=== PATIENT | female | born 1935 | race Caucasian/White ===

== ENCOUNTER 2016-10-22 07:39 | Inpatient (IN) | payer MEDICARE, MEDICAID ==
[~2016-10-22] VITALS: Ht 154.9 cm; Wt 63.0 kg
[~2016-10-22 07:39] MED LIST: ATEN100T PO; CEPH-507 PO
[2016-10-22 07:54] LABS: BASOPHILS % (AUTO) 0 % (0-10); EOSINOPHILS # (AUTO) 0.1 10^3/uL (0.0-0.3); EOSINOPHILS % (AUTO) 1 % (0-10); LYMPHOCYTES # (AUTO) 1.3 X 10^3 (1.0-4.0); LYMPHOCYTES % (AUTO) 16 % (12-44); MEAN CORPUSCULAR HEMOGLOBIN 32 PG (25-34); MEAN CORPUSCULAR HGB CONC 33 G/DL (32-36); MEAN CORPUSCULAR VOLUME 99 FL (80-99); MEAN PLATELET VOLUME 9.3 FL (7.4-10.4); MONOCYTES # (AUTO) 0.6 X 10^3 (0.0-1.0); MONOCYTES % (AUTO) 8 % (0-12); NEUTROPHILS # (AUTO) 5.9 X 10^3 (1.8-7.8); NEUTROPHILS % (AUTO) 75 % (42-75); PLATELET COUNT 208 10^3/uL (130-400); RED BLOOD COUNT 3.61 10^6/uL (4.35-5.85); RED CELL DISTRIBUTION WIDTH 12.4 % (10.0-14.5); WHITE BLOOD COUNT 7.9 10^3/uL (4.3-11.0)
[2016-10-22 08:04] LABS: INR 1.1 (0.8-1.4); PROTHROMBIN TIME PATIENT 13.6 SEC (12.2-14.7)
--- NOTE | 2016-10-22 08:04 | Diagnostic Imaging Report ---
INDICATION: Altered mental status EXAMINATION: Portable chest 7:55 AM There is scoliosis of the thoracic spine convex to the right. Heart size and pulmonary vascularity are normal. Lungs are clear. There are no effusions or pneumothoraces. IMPRESSION: No acute abnormalities in the chest. Dictated by: Dictated on workstation # [id number]
--- NOTE | 2016-10-22 08:05 | Diagnostic Imaging Report ---
INDICATION: Altered mental status The ventricles are normal in size, shape and position. There are no masses or hemorrhages. There are no extra-axial fluid collections. There is mild atrophy. IMPRESSION: There are senescent changes of brain with mild diffuse cerebral degeneration and chronic ischemic leukoencephalopathy. There is no acute abnormality seen. There is no CT evidence for an acute infarct. Dictated by: Dictated on workstation # [id number]
[2016-10-22 08:12] LABS: ALANINE AMINOTRANSFERASE 12 U/L (0-55); ANION GAP 12 MMOL/L (5-14); ASPARTATE AMINO TRANSFERASE 15 U/L (5-34); BILIRUBIN,TOTAL 0.5 MG/DL (0.1-1.0); BLOOD UREA NITROGEN 24 MG/DL (7-18); BUN/CREATININE RATIO 23; CALCIUM 9.2 MG/DL (8.5-10.1); CARBON DIOXIDE 22 MMOL/L (21-32); CHLORIDE 104 MMOL/L (98-107); CREATININE SERUM 1.06 MG/DL (0.60-1.30); GFR ESTIMATED 50; GLUCOSE 165 MG/DL (70-105); POTASSIUM 4.9 MMOL/L (3.6-5.0); SODIUM 138 MMOL/L (135-145); TOTAL PROTEIN 6.7 G/DL (6.4-8.2)
--- NOTE | 2016-10-22 08:16 | ED Neurological Problem ---
General Chief Complaint: Neuro-Stroke Like Symptoms Stated Complaint: DIFFICULTY MOVING R SIDE Source: patient Exam Limitations: no limitations History of Present Illness Time seen by provider: 07:46 Initial Comments Here with difficulty in moving the right side specifically the right arm. Also there is some concerns of facial droop on the left side. She lives at an assisted living facility and went to bed normal last night but when she woke up this morning she had difficulty. She has had an episode in the past with right arm weakness. No history of stroke. She does have dementia. Denies any other recent injuries or concerns other than stuffed up nose. This apparently is a long-term concern. Last known well time 10 p.m. last night. Timing/Duration: other (8-10 hours) Associated Symptoms: confusion (history of dementia), No fever/chills, No muscle spasms, No nausea/vomiting, No slurred speech, trouble walking, weakness (right arm) Allergies and Home Medications Allergies Coded Allergies: No Known Drug Allergies (Unverified , 03/07/16) Home Medications Atenolol 100 Mg Tablet, 100 MG PO DAILY, (Reported) Citalopram Hydrobromide 20 Mg Tablet, #30 (Reported) Divalproex Sodium 125 Mg Cap.sprink, #90 (Reported) Fluticasone Propionate 16 Gm Charmco.susp, #16 (Reported) Lactulose 10 Gm/15 Ml Solution, #1800 (Reported) Levothyroxine Sodium 125 Mcg Tablet, #22 (Reported) Lorazepam 0.5 Mg Tablet, #15 (Reported) Meloxicam 15 Mg Tablet, #30 (Reported) Memantine HCl 10 Mg Tablet, #60 (Reported) Spironolactone 25 Mg Tablet, #30 (Reported) Constitutional: see HPI, No chills, No fever, weakness Eyes: No Symptoms Reported Ears, Nose, Mouth, Throat: see HPI Respiratory: No short of breath Cardiovascular: no symptoms reported, No chest pain, No edema Gastrointestinal: no symptoms reported, No vomiting Genitourinary: no symptoms reported, No dysuria, No pain Musculoskeletal: no symptoms reported, No muscle pain, muscle weakness Skin: no symptoms reported Psychiatric/Neurological: See HPI, Weakness Endocrine: No Symptoms Reported All Other Systems Reviewed Negative Unless Noted: Yes Past Spxcyvv-Cfhajc-Awgadv Hx Patient Social History Alcohol Use: Denies Use Recreational Drug Use: No Smoking Status: Never a Smoker Recent Hopitalizations: No Surgeries HX Surgeries: No Respiratory Hx Respiratory Disorders: No Cardiovascular Hx Cardiac Disorders: Yes ( CHF) Cardiac Disorders: High Cholesterol, Hypertension Neurological Hx Neurological Disorders: No Genitourinary Hx Genitourinary Disorders: No Gastrointestinal Hx Gastrointestinal Disorders: No Musculoskeletal Hx Musculoskeletal Disorders: No Endocrine Hx Endocrine Disorders: Yes Endocrine Disorders: Hypothyroidsim HEENT HX ENT Disorders: No Cancer Hx Cancer: No Psychosocial Hx Psychiatric Problems: Yes Behavioral Health Disorders: Anxiety Reviewed Nursing Assessment Reviewed/Agree w Nursing PMH: Yes Family Medical History Significant Family History: No Pertinent Family Hx Physical Exam Vital Signs Vital Sign - Last 12Hours 10/22/16 07:40 Temp 98.2 Pulse 56 Resp 14 B/P (MAP) 188/71 Pulse Ox 96 O2 Delivery Room Air Capillary Refill : General Appearance: WD/WN, no apparent distress HEENT: PERRL/EOMI, pharynx normal Neck: full range of motion, supple Respiratory: lungs clear, normal breath sounds Cardiovascular: regular rate, rhythm, no murmur Peripheral Pulses: 2+ Dorsalis Pedis (R), 2+ Left Dors-Pedis (L), 2+ Radial Pulses (R), 2+ Radial Pulses (L) Gastrointestinal: non tender, soft Back: normal inspection, no CVA tenderness, no vertebral tenderness Extremities: non-tender, other (arthritis to the right hand and wrist. Weakness noted to the right hand.) Neurologic/Psychiatric: alert, oriented x 3, motor weakness (right hand and weak when standing) Crainal Nerves: normal hearing, normal speech, PERRL Coordination/Gait: ABN nose to finger (R) Motor/Sensory: no sensory deficit, pronator drift (R), weak motor strength RUE Skin: normal color, warm/dry Progress/Results/Core Measures Results/Orders Lab Results Laboratory Tests Test 10/22/16 07:45 10/22/16 08:02 10/22/16 09:27 Range/Units White Blood Count 7.9 4.3-11.0 10^3/uL Red Blood Count 3.61 L 4.35-5.85 10^6/uL Hemoglobin 11.7 11.5-16.0 G/DL Hematocrit 36 35-52 % Mean Corpuscular Volume 99 80-99 FL Mean Corpuscular Hemoglobin 32 25-34 PG Mean Corpuscular Hemoglobin Concent 33 32-36 G/DL Red Cell Distribution Width 12.4 10.0-14.5 % Platelet Count 208 130-400 10^3/uL Mean Platelet Volume 9.3 7.4-10.4 FL Neutrophils (%) (Auto) 75 42-75 % Lymphocytes (%) (Auto) 16 12-44 % Monocytes (%) (Auto) 8 0-12 % Eosinophils (%) (Auto) 1 0-10 % Basophils (%) (Auto) 0 0-10 % Neutrophils # (Auto) 5.9 1.8-7.8 X 10^3 Lymphocytes # (Auto) 1.3 1.0-4.0 X 10^3 Monocytes # (Auto) 0.6 0.0-1.0 X 10^3 Eosinophils # (Auto) 0.1 0.0-0.3 10^3/uL Basophils # (Auto) 0.0 0.0-0.1 10^3/uL Prothrombin Time 13.6 12.2-14.7 SEC INR Comment 1.1 0.8-1.4 Activated Partial Thromboplast Time 32 24-35 SEC D-Dimer 1.14 H 0.00-0.49 UG/ML Sodium Level 138 135-145 MMOL/L Potassium Level 4.9 3.6-5.0 MMOL/L Chloride Level 104 98-107 MMOL/L Carbon Dioxide Level 22 21-32 MMOL/L Anion Gap 12 5-14 MMOL/L Blood Urea Nitrogen 24 H 7-18 MG/DL Creatinine 1.06 0.60-1.30 MG/DL Estimat Glomerular Filtration Rate 50 BUN/Creatinine Ratio 23 Glucose Level 165 H 70-105 MG/DL Calcium Level 9.2 8.5-10.1 MG/DL Total Bilirubin 0.5 0.1-1.0 MG/DL Aspartate Amino Transf (AST/SGOT) 15 5-34 U/L Alanine Aminotransferase (ALT/SGPT) 12 0-55 U/L Alkaline Phosphatase 95 40-136 U/L Troponin I < 0.30 <0.30 NG/ML Total Protein 6.7 6.4-8.2 G/DL Albumin 4.0 3.2-4.5 G/DL Glucometer 162 H 70-110 MG/DL Urine Color YELLOW Urine Clarity CLEAR Urine pH 6 5-9 Urine Specific [place] 1.010 L 1.016-1.022 Urine Protein NEGATIVE NEGATIVE Urine Glucose (UA) NEGATIVE NEGATIVE Urine Ketones NEGATIVE NEGATIVE Urine Nitrite NEGATIVE NEGATIVE Urine Bilirubin NEGATIVE NEGATIVE Urine Urobilinogen NORMAL NORMAL MG/DL Urine Leukocyte Esterase NEGATIVE NEGATIVE Urine RBC (Auto) NEGATIVE NEGATIVE Urine RBC NONE /HPF Urine WBC NONE /HPF Urine Squamous Epithelial Cells RARE /HPF Urine Crystals NONE /LPF Urine Bacteria NEGATIVE /HPF Urine Casts NONE /LPF Urine Mucus NEGATIVE /LPF Urine Culture Indicated NO My Orders Orders - ROSALIA PATEL MD Cbc With Automated Diff (10/22/16 07:46) Protime With Inr (10/22/16 07:46) Partial Thromboplastin Time (10/22/16 07:46) Comprehensive Metabolic Panel (10/22/16 07:46) Fibrin Degradation Products (10/22/16 07:46) Troponin I (10/22/16 07:46) Ua Culture If Indicated (10/22/16 07:46) Chest 1 View, Ap/Pa Only (10/22/16 07:46) Ekg Tracing (10/22/16 07:46) Nothing By Mouth (10/22/16 Lunch) Accucheck Stat ONCE (10/22/16 07:46) Saline Lock/Iv-Start (10/22/16 07:46) Vital Signs-Stroke Q1H (10/22/16 07:46) Ct Head Wo-R/O Stroke (10/22/16 07:46) O2 (10/22/16 07:46) Intake & Output 06,14,22 (10/22/16 07:46) Monitor-Rhythm Ecg Trace Only (10/22/16 07:46) Dysphagia Screening Tool (10/22/16 07:46) Ketorolac Injection (Toradol Injection) (10/22/16 09:15) Aspirin Chewable Tablet (Baby Aspirin Ch (10/22/16 10:57) Vital Signs/I&O Vital Sign - Last 12Hours 10/22/16 07:40 Temp 98.2 Pulse 56 Resp 14 B/P (MAP) 188/71 Pulse Ox 96 O2 Delivery Room Air Progress Note : Progress Note Seen and evaluated. Stroke activation. IV, labs, EKG, chest x-ray, CT head and UA ordered. Rapid CT evaluation done. Stroke scale equals a 2. Last known well time greater than 3 hours with last known well time at 10 p.m. last night. TPA not indicated due to timeframe exceeding 3 hours. This was discussed with the family who agrees. Monitor patient. 1055: All evaluation complete. Patient still has findings of right-sided deficit similar to presentation. I did discuss the case with Dr. Fish who is on-call for Dr. Hou. She accepts patient for admission, inpatient status. Doppler ultrasound of carotids and MRI of brain ordered on admission. All findings and concerns were discussed with patient and family who agree with plan. ECG Initial ECG Impression Date: Oct 22, 2016 Initial ECG Impression Time: 08:01 Initial ECG Rate: 56 Initial ECG Rhythm: Normal Sinus Comment Sinus rhythm with left axis deviation. Left ventricular hypertrophy noted. No previous available for comparison. No evidence of ST elevation [place]. Interpreted by me. Diagnostic Imaging Diagonstic Imaging: CT Plain Films/CT/US/NM/MRI: head Comments NAME: CORY FLORENCEYN [facility] REC#: [id number] PT STATUS: REG ER : 1935 PHYSICIAN: ROSALIA PATEL MD ADMIT DATE: 10/22/16/ER Signed Date of Exam: 10/22/16 CT HEAD WO-R/O STROKE INDICATION: Altered mental status The ventricles are normal in size, shape and position. There are no masses or hemorrhages. There are no extra-axial fluid collections. There is mild atrophy. IMPRESSION: There are senescent changes of brain with mild diffuse cerebral degeneration and chronic ischemic leukoencephalopathy. There is no acute abnormality seen. There is no CT evidence for an acute infarct. Dictated by: Dictated on workstation # [id number] Dict: 10/22/16 08 Trans: 10/22/16810 Interpreted by: ROSALIA GARCIA Electronically signed by: ROSALIA GARCIA 10/22/16810 Diagonstic Imaging: Xray Plain Films/CT/US/NM/MRI: chest Comments NAME: JO FLORENCE [facility] REC#: [id number] PT STATUS: REG ER : 1935 PHYSICIAN: ROSALIA PATEL MD ADMIT DATE: 10/22/16/ER Signed Date of Exam: 10/22/16 CHEST 1 VIEW, AP/PA ONLY INDICATION: Altered mental status EXAMINATION: Portable chest 7:55 AM There is scoliosis of the thoracic spine convex to the right. Heart size and pulmonary vascularity are normal. Lungs are clear. There are no effusions or pneumothoraces. IMPRESSION: No acute abnormalities in the chest. Dictated by: Dictated on workstation # [id number] Dict: 10/22/16800 Trans: 10/22/16810 Interpreted by: ROSALIA GARCIA Electronically signed by: ROSALIA GARCIA 10/22/16810 Departure Communication Time/Spoke to Admitting Phy: 10:55 Impression Impression: Primary Impression: CVA (cerebral vascular accident) Qualified Codes: I63.9 - Cerebral infarction, unspecified Disposition: 09 ADMITTED INPATIENT Condition: Stable Decision to Admit Reason: Admit from ER (General) Decision to Admit/Date: Oct 22, 2016 Time/Decision to Admit Time: 10:55 Departure-Patient Inst. Referrals: NATE HOU MD (PCP/Family) Primary Care Physician ROSALIA PATEL MD Oct 22, 2016 08:16
[2016-10-22 08:18] LABS: TROPONIN I < 0.30 NG/ML (<0.30)
[2016-10-22] MEDS ORDERED: LORA0.5T PO (08:19)
[2016-10-22] MEDS ORDERED: SPIR25TA3 PO (08:19)
[2016-10-22] MEDS ORDERED: DIVA125C10 PO (08:19)
[2016-10-22] MEDS ORDERED: MELO15TA39 PO (08:19)
[2016-10-22] MEDS ORDERED: MEMA10TA22 PO (08:19)
[2016-10-22] MEDS ORDERED: CITA20TA7 PO (08:19)
[2016-10-22] MEDS ORDERED: FLUT16SP22 NSEACH (08:19)
[2016-10-22] MEDS ORDERED: LACT10SO PO (08:19)
[2016-10-22] MEDS ORDERED: LEVO125T6 PO (08:19)
[2016-10-22] MEDS ORDERED: KETOROLAC 30 MG/ML VIAL IVP STA (09:15)
[2016-10-22 09:59] LABS: BILIRUBIN,URINE NEGATIVE (NEGATIVE); KETONES,URINE NEGATIVE (NEGATIVE); LEUKOCYTE ESTERASE ,URINE NEGATIVE (NEGATIVE); NITRITE,URINE NEGATIVE (NEGATIVE); PH,URINE 6 (5-9); PROTEIN,URINE NEGATIVE (NEGATIVE); SQUAMOUS EPITHELIAL CELL,UR RARE /HPF; UROBILINOGEN,URINE NORMAL (NORMAL)
[2016-10-22] MEDS ORDERED: ASPIRIN 81 MG CHEW (CHILDREN'S ASA) PO STA (10:57)
[2016-10-22 12:05] VITALS: BP 195/84
[2016-10-22] MEDS ORDERED: CATHETER FLUSH 10 ML SYR IV PRN (12:15)
[2016-10-22] MEDS: NS IV 1000 ML 1,000 ML IV SCH (12:31)
--- NOTE | 2016-10-22 14:48 | Diagnostic Imaging Report ---
PROCEDURE: MR imaging of the brain without contrast. TECHNIQUE: Multiplanar, multisequence MR imaging of the brain was performed without contrast. INDICATION: Right-sided weakness and slurred speech. Comparison made to CT head from earlier in the same day. FINDINGS: The diffusion series demonstrates no restriction to suggest acute ischemia. There is no MR evidence of acute intracranial hemorrhage. Global volume loss is present with background microvascular changes in the white matter. These appear moderate. There is no mass effect. There is no hydrocephalus. There is no abnormal extra-axial fluid collection. Basilar cisterns patent. Posterior fossa demonstrates no acute abnormality. Pituitary gland and pineal region appear normal. There is normal alignment demonstrated of the craniocervical junction. Note is made of a high-grade upper cervical canal stenosis at the C2-3 and C3-4 levels. There is some mild mucosal thickening within the paranasal sinuses. Orbital contents unremarkable. The mastoids appear clear. Expected arterial and dural venous sinus flow voids appear preserved. IMPRESSION: 1. No MR evidence of an acute intracranial abnormality. There is No evidence of acute ischemia or hemorrhage. There is no mass effect or hydrocephalus. 2. Age-appropriate global volume loss demonstrated with moderate background microvascular changes in the white matter. 3. The sagittal T1 images suggest significant upper cervical canal stenosis at the C2-3 and C3-4 levels. If signs or symptoms attributable to a myelopathy or radiculopathy consider dedicated MR imaging of the cervical spine. Dictated by: Dictated on workstation # [id number]
[2016-10-22] MEDS ORDERED: RIVA1PAT TD (15:26)
[2016-10-22] MEDS ORDERED: CHOL200025 PO (15:26)
[2016-10-22] MEDS ORDERED: SIMV20TA3 PO (15:26)
[2016-10-22] MEDS ORDERED: GLUC1TAB20 PO (15:26)
[2016-10-22] MEDS ORDERED: LACT1CAP45 PO (15:26)
--- NOTE | 2016-10-22 15:29 | Diagnostic Imaging Report ---
PROCEDURE: US carotid duplex, bilateral. TECHNIQUE: Multiple real-time grayscale images were obtained over the carotid arteries in various projections, bilaterally. Additional duplex Doppler and color Doppler images were also obtained. INDICATION: Right side neurologic deficit. FINDINGS: There is atherosclerotic plaque present in both carotid bifurcations. There is no significant velocity or waveform change on the right. On the left, There is some acceleration of the distal internal carotid artery suggesting stenosis of 60-65% narrowing. Left vertebral artery is patent with antegrade flow. The right vertebral artery was not seen. IMPRESSION: Left internal carotid stenosis. It is borderline hemodynamically significant regarding its velocity ratio. The right vertebral artery was not seen. Dictated by: Dictated on workstation # [id number]
[2016-10-22 16:03] VITALS: BP 146/61
[2016-10-22] MEDS: FLUTICASONE NASAL SPRAY (FLONASE) 16 GM BTL NS SCH (17:29)
[2016-10-22 20:59] VITALS: BP 169/67
[2016-10-22] MEDS ORDERED: LORazepam 0.5 MG (ATIVAN) TABLET PO SCH (21:00)
[2016-10-22] MEDS: DIVALPROX SPRINKLE 125 MG (DEPAKOTE) CAP PO SCH (22:08)
[2016-10-23] VITALS: BP 179/84
[2016-10-23 04:00] VITALS: BP 168/70
[2016-10-23 06:14] LABS: BASOPHILS % (AUTO) 1 % (0-10); EOSINOPHILS # (AUTO) 0.2 10^3/uL (0.0-0.3); EOSINOPHILS % (AUTO) 3 % (0-10); LYMPHOCYTES # (AUTO) 1.7 X 10^3 (1.0-4.0); LYMPHOCYTES % (AUTO) 27 % (12-44); MEAN CORPUSCULAR HEMOGLOBIN 32 PG (25-34); MEAN CORPUSCULAR HGB CONC 33 G/DL (32-36); MEAN CORPUSCULAR VOLUME 99 FL (80-99); MEAN PLATELET VOLUME 9.6 FL (7.4-10.4); MONOCYTES # (AUTO) 0.8 X 10^3 (0.0-1.0); MONOCYTES % (AUTO) 13 % (0-12); NEUTROPHILS # (AUTO) 3.5 X 10^3 (1.8-7.8); NEUTROPHILS % (AUTO) 57 % (42-75); PLATELET COUNT 205 10^3/uL (130-400); RED BLOOD COUNT 3.62 10^6/uL (4.35-5.85); RED CELL DISTRIBUTION WIDTH 12.5 % (10.0-14.5); WHITE BLOOD COUNT 6.2 10^3/uL (4.3-11.0)
[2016-10-23 06:18] LABS: ALANINE AMINOTRANSFERASE 12 U/L (0-55); ALBUMIN 3.7 G/DL (3.2-4.5); ANION GAP 10 MMOL/L (5-14); ASPARTATE AMINO TRANSFERASE 16 U/L (5-34); BILIRUBIN,TOTAL 0.5 MG/DL (0.1-1.0); BLOOD UREA NITROGEN 22 MG/DL (7-18); BUN/CREATININE RATIO 25; CALCIUM 9.3 MG/DL (8.5-10.1); CARBON DIOXIDE 24 MMOL/L (21-32); CHLORIDE 105 MMOL/L (98-107); CREATININE SERUM 0.89 MG/DL (0.60-1.30); GFR ESTIMATED > 60; GLUCOSE 98 MG/DL (70-105); POTASSIUM 4.6 MMOL/L (3.6-5.0); SODIUM 139 MMOL/L (135-145); TOTAL PROTEIN 6.1 G/DL (6.4-8.2)
[2016-10-23 06:42] LABS: BAND NEUTROPHILS 2 %; EOSINOPHILS % (MANUAL) 2 %; LYMPHOCYTES % (MANUAL) 20 %; NEUTROPHILS % (MANUAL) 65 %; STOMATOCYTES SLIGHT
[2016-10-23 08:00] VITALS: BP 164/72
[2016-10-23] MEDS: ASPIRIN 325 MG (5 GR) TABLET PO SCH (08:40)
[2016-10-23] MEDS: DIVALPROX SPRINKLE 125 MG (DEPAKOTE) CAP PO SCH ×3 (08:40→20:59)
[2016-10-23] MEDS: FLUTICASONE NASAL SPRAY (FLONASE) 16 GM BTL NS SCH (08:41)
--- NOTE | 2016-10-23 10:57 | History & Physicial ---
History of Present Illness History of Present Illness Reason for visit/HPI This is an 81 year old female with a history of dementia and recent stay in [facility] with medication adjustments who was noted by AL staff to have right sided weakness--especially in her right arm. The patient has no history of stroke but did have a similar incident with her right arm in the past. She has a history of rheumatoid arthritis and has had the right arm and hand swell up with pain in the past as well. Her CT scan of the head was negative but it was felt she was having a TIA vs evolving stroke. She was given aspirin in the emergency room and will be admitted for further evaluation. Date of Admission Oct 22, 2016 at 11:05 I consulted on this patient on 10/23/16 10:47 Attending Physician Martha Hou MD Admitting Physician Martha Hou MD Consult Allergies and Home Medications Allergies Coded Allergies: No Known Drug Allergies (Unverified , 03/07/16) Home Medications Atenolol 100 Mg Tablet, 100 MG PO DAILY, (Reported) Cholecalciferol (Vitamin D3) 2,000 Unit Tablet, 2,000 UNIT PO DAILY, #30 Prescribed by: KWAKU PRESTON on 10/22/16 1526 Citalopram Hydrobromide 20 Mg Tablet, #30 (Reported) Divalproex Sodium 125 Mg Cap.sprink, #90 (Reported) Fluticasone Propionate 16 Gm Maben.susp, #16 (Reported) Gluc Levin/Chondro Lvein A/Vit C/Mn 1 Each Tablet, 1 EACH PO DAILY, #30 Prescribed by: KWAKU PRESTON on 10/22/16 1526 Lactobacillus Acidophilus 1 Each Capsule, 1 EACH PO HS, #30 Prescribed by: KWAKU PRESTON on 10/22/16 1526 Lactulose 10 Gm/15 Ml Solution, #1800 (Reported) Levothyroxine Sodium 125 Mcg Tablet, #22 (Reported) Lorazepam 0.5 Mg Tablet, #15 (Reported) Meloxicam 15 Mg Tablet, #30 (Reported) Memantine HCl 10 Mg Tablet, #60 (Reported) Rivastigmine 4.6 Mg Patch, 4.6 MG TD DAILY, #30 Prescribed by: KWAKU PRESTON on 10/22/16 1526 Simvastatin 20 Mg Tablet, 20 MG PO DAILY, #30 Prescribed by: KWAKU PRESTON on 10/22/16 1526 Spironolactone 25 Mg Tablet, #30 (Reported) Past Ovakpnn-Ruynqh-Mpybha Hx Patient Social History Alcohol Use: Denies Use Recreational Drug Use: No Smoking Status: Never a Smoker 2nd Hand Smoke Exposure: No Physical Abuse Screen: No Sexual Abuse: No Recent Foreign Travel: No Contact w/other who traveled: Yes (daughter in [facility] in august ) Recent Hopitalizations: Yes ([facility]) Recent Infectious Disease Expo: No Immunizations Up To Date Date of Pneumonia Vaccine: Jul 24, 2016 Seasonal Allergies Seasonal Allergies: No Surgeries HX Surgeries: No Respiratory Hx Respiratory Disorders: No Cardiovascular Hx Cardiovascular Disorders: Yes ( CHF) Cardiac Disorders: High Cholesterol, Hypertension Neurological Hx Neurological Disorders: Yes (ALZHEIMERS) Genitourinary Hx Genitourinary Disorders: No Gastrointestinal Hx Gastrointestinal Disorders: No Musculoskeletal Hx Musculoskeletal Disorders: No Endocrine Hx Endocrine Disorders: Yes Endocrine Disorders: Hypothyroidsim HEENT HX ENT Disorders: No Cancer Hx Cancer: No Psychosocial Hx Psychiatric Problems: Yes Behavioral Health Disorders: Anxiety, Depression Reviewed Nursing Assessment Reviewed/Agree w Nursing PMH: Yes Family Medical History Significant Family History: No Pertinent Family Hx Family Hx: Constitutional: weakness EENTM: No blurred vision, No dental problems, No double vision, No ear discharge, No ear pain, No epistaxis, No eye pain, No hearing loss, No hoarseness, No mouth pain, No mouth swelling, No no symptoms reported, No nose congestion, No nose pain, No other, No see HPI, No tearing, No throat pain, No throat swelling, No vision loss Respiratory: No no symptoms reported, No see HPI, No cough, No dyspnea on exertion, No hemoptysis, No orthopnea, No phlegm, No short of breath, No stridor , No wheezing, No other Cardiovascular: No no symptoms reported, No see HPI, No chest pain, No edema, No Hx of Intervention, No palpitations, No syncope, No vascular heart diseas, No other Gastrointestinal: No RUQ, No LUQ, No RLQ, No LLQ, No no symptoms reported, No see HPI, No abdominal pain, No constipation, No diarrhea, No dysphagia, No hematemesis, No heartburn, No jaundice, No loss of appetite, No melena, No nausea, No vomiting, No other Genitourinary: No no symptoms reported, No see HPI, No decreased output, No discharge, No dysuria, No frequency, No hematuria, No hesitancy, No incontinence , No nocturia, No pain, No other Musculoskeletal: joint pain (rheumatoid arthritis) Skin: No no symptoms reported, No see HPI, No change in color, No change in hair/nails, No dryness, No hx of skin cancer, No lesions, No lumps, No pruritus , No rash, No other Psychiatric/Neurological: Anxiety, Emotional Problems, Weakness, Other ( dementia) Physical Exam Vital Signs Vital Sign - Last 12Hours 10/22/16 07:40 Temp 98.2 Pulse 56 Resp 14 B/P (MAP) 188/71 Pulse Ox 96 O2 Delivery Room Air Capillary Refill : Less Than 3 SecondsLess Than 3 Seconds General Appearance: No Apparent Distress HEENT: Normal ENT Inspection Neck: Supple Respiratory: Lungs Clear Cardiovascular: Regular Rate, Rhythm, Systolic Murmur Gastrointestinal: Normal Bowel Sounds, Non Tender, Soft Rectal: Deferred Back: No CVA Tenderness Extremity: Non Tender, No Calf Tenderness, No Pedal Edema, Other (deformites of both hands consistent with history of rheumatoid) Neurologic/Psychiatric: Alert, Motor 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), Other (speech difficult to understand but this is her baseline per daughter) Skin: Normal Color, Warm/Dry Comments Laboratory Tests 10/23/16 05:37: White Blood Count 6.2, Red Blood Count 3.62L, Hemoglobin 11.7, Hematocrit 36, Mean Corpuscular Volume 99, Mean Corpuscular Hemoglobin 32, Mean Corpuscular Hemoglobin Concent 33, Red Cell Distribution Width 12.5, Platelet Count 205, Mean Platelet Volume 9.6, Neutrophils (%) (Auto) 57, Lymphocytes (%) (Auto) 27, Monocytes (%) (Auto) 13H, Eosinophils (%) (Auto) 3, Basophils (%) (Auto) 1, Neutrophils # (Auto) 3.5, Lymphocytes # (Auto) 1.7, Monocytes # (Auto) 0.8, Eosinophils # (Auto) 0.2, Basophils # (Auto) 0.0, Neutrophils % (Manual) 65, Lymphocytes % (Manual) 20, Monocytes % (Manual) 11, Eosinophils % (Manual) 2, Band Neutrophils 2, Stomatocytes SLIGHT, Sodium Level 139, Potassium Level 4.6, Chloride Level 105, Carbon Dioxide Level 24, Anion Gap 10, Blood Urea Nitrogen 22H, Creatinine 0.89, Estimat Glomerular Filtration Rate > 60, BUN/Creatinine Ratio 25, Glucose Level 98, Calcium Level 9.3, Total Bilirubin 0.5, Aspartate Amino Transf (AST/SGOT) 16, Alanine Aminotransferase (ALT/SGPT) 12, Alkaline Phosphatase 89, Total Protein 6.1L, Albumin 3.7 Assessment/Plan Assessment and Plan 1. Acute CVA with right arm weakness--Admit and check carotids, ECHO, MRI of brain, Start Aspirin, Start PT/OT, may need inpatient rehab 2. Left Carotid Artery Stenosis of 60-65%--discussed medical management with patient and daughter due to age and comorbidities 3. Dementia with Behavior Disorder--resume depakote, exelon, namenda, lorazepam 4. Rheumatoid Arthritis--stable 5. Hypertension--restart atenolol and monitor BP--okay with keeping it between 150-160 systolic for perfusion Problems: Clinical Quality Measures DVT/VTE Risk/Contraindication: Risk Factor Score Per Nursin RFS Level Per Nursing on Admit: 4+=Very High TOM BOSWELL DO Oct 23, 2016 10:57
[2016-10-23 12:00] VITALS: BP 179/78
[2016-10-23] MEDS: NS IV 1000 ML 1,000 ML IV SCH (12:33)
[2016-10-23 16:23] VITALS: BP 176/78
[2016-10-23 20:00] VITALS: BP 162/67
[2016-10-23] MEDS: LACTOBACILLUS Acidoph/Bulgar (LACTINEX/FLORANEX) TAB PO SCH (20:58)
[2016-10-23] MEDS: MEMANTINE 10 MG (NAMENDA) TABLET PO SCH (20:59)
[2016-10-23] MEDS: LORazepam 0.5 MG (ATIVAN) TABLET PO SCH (20:59)
[2016-10-23] MEDS: SIMvastatin 20 MG (ZOCOR) TAB PO SCH (20:59)
[2016-10-24 00:21] VITALS: BP 175/72
[2016-10-24 04:12] VITALS: BP 178/70
[2016-10-24] MEDS: LEVOTHYROXINE 125 MCG (LEVOTHROID) TABLET PO SCH (06:59)
[2016-10-24 07:25] VITALS: BP 177/77
[2016-10-24] MEDS ORDERED: RIVASTIGMINE 4.6 MG PATCH (EXELON) TD SCH (09:00)
[2016-10-24] MEDS: MEMANTINE 10 MG (NAMENDA) TABLET PO SCH ×2 (09:05→21:37)
[2016-10-24] MEDS: ATENOLOL 50 MG (TENORMIN) TAB PO SCH (09:05)
[2016-10-24] MEDS: DIVALPROX SPRINKLE 125 MG (DEPAKOTE) CAP PO SCH ×3 (09:05→21:37)
[2016-10-24] MEDS: ASPIRIN 325 MG (5 GR) TABLET PO SCH (09:05)
[2016-10-24] MEDS: VITAMIN D3 1,000 UNITS (CHOLECALCIFEROL) TABLET PO SCH (09:05)
[2016-10-24] MEDS: FLUTICASONE NASAL SPRAY (FLONASE) 16 GM BTL NS SCH (09:06)
[2016-10-24] MEDS ORDERED: GLUC1CAP37 PO (09:12)
[2016-10-24] MEDS ORDERED: LACT1CAP45 PO (09:12)
[2016-10-24] MEDS ORDERED: SIMV10TA3 PO (09:12)
[2016-10-24] MEDS ORDERED: RIVA1PAT TD (09:12)
[2016-10-24] MEDS ORDERED: CHOL20003 PO (09:12)
--- NOTE | 2016-10-24 09:33 | Progress Note (SOAP) ---
Subjective Subjective/Events-last exam PT REPORTS THAT SHE HAS NASAL CONGESTION, OTHERWISE IS FEELING BETTER. SHE DENIES ANY DIZZINESS, CHEST PAIN OR SHORTNESS OF BREATH. Review of Systems General: Fatigue, Malaise HEENT: No Head Aches Pulmonary: No Dyspnea, No Cough Cardiovascular: No: Chest Pain, Palpitations Gastrointestinal: No: Abdominal Pain, Nausea Genitourinary: No Dysuria Neurological: Confusion, Weakness Objective Exam Vital Signs Date Time Temp Pulse Resp B/P (MAP) Pulse Ox O2 Delivery O2 Flow Rate FiO2 10/24/16 07:25 98.0 61 16 177/77 94 Room Air 10/24/16 07:00 69 10/24/16 06:12 93 10/24/16 04:12 97.1 53 16 178/70 95 Room Air 10/24/16 01:00 55 10/24/16 00:21 98.3 60 16 175/72 95 Room Air 10/23/16 21:26 Room Air 10/23/16 20:00 96.9 57 18 162/67 92 Room Air 10/23/16 19:00 63 10/23/16 16:23 97.4 55 18 176/78 95 Room Air 10/23/16 13:00 58 10/23/16 12:00 97.6 56 18 179/78 97 Room Air I & O 10/24/16 07:00 Intake Total 3040 ml Output Total 2450 ml Balance 590 ml Capillary Refill : Less Than 3 SecondsLess Than 3 Seconds General Appearance: No Apparent Distress, WD/WN HEENT: PERRL/EOMI, Pharynx Normal Neck: Full Range of Motion, Supple Respiratory: Chest Non Tender, Lungs Clear, Normal Breath Sounds, No Accessory Muscle Use Cardiovascular: Regular Rate, Rhythm, No Edema Gastrointestinal: normal bowel sounds, non tender, soft Extremity: Normal Capillary Refill, No Calf Tenderness, No Pedal Edema Neurologic/Psychiatric: Alert, Oriented x3, No Motor/Sensory Deficits, Normal Mood/Affect, insole taper II-XII Norm as Tested Skin: Warm/Dry Lymphatic: No Adenopathy Assessment/Plan Assessment/Plan Assess & Plan/Chief Complaint TIA - - WAITING ON REPORTS OF ECHO - MRI OF BRAIN NEGATIVE, CAROTID REPORT SHOWS LEFT CAROTID ARTERY STENOSIS - BUT DOES NOT APPEAR TO BE AN UNSTABLE PLAQUE. DEMENTIA WITH BEHAVIORS - CONTINUE WITH HOME MEDICATIONS. RA - STABLE HTN - CONTINUE WITH ATENOLOL. LIKELY DISCHARGE TO HOME TOMORROW. Clinical Quality Measures DVT/VTE Risk/Contraindication: Risk Factor Score Per Nursin RFS Level Per Nursing on Admit: 4+=Very High NATE ADAN MD Oct 24, 2016 09:33
--- NOTE | 2016-10-24 11:14 | Physical Therapy Evaluation ---
PT Evaluation-General Medical Diagnosis Admission Date Oct 22, 2016 at 11:05 Medical Diagnosis: TIA Onset Date: Oct 22, 2016 Therapy Diagnosis Therapy Diagnosis: debility Height/Weight Height (Feet): 5 Height (Inches): 1.00 Weight (Pounds): 139 Weight (Ounces): 0.8 Precautions Precautions/Isolations: Fall Prevention, Standard Precautions Referral Physician: Abe Reason for Referral: Evaluation/Treatment Medical History Pertinent Medical History: Dementia, Heart Failure, HTN, Hypothroidism, Rheumatoid Arthritis Additional Medical History Alzheimers; recent stay at [facility] Current History (-) CT; right hemiparesis Reviewed History: Yes Social History Home: Assisted Living Prior/Core FIM Prior Level of Function Functional [place] Measure 0=Not Assessed/NA 4=Minimal Assistance 1=Total Assistance 5=Supervision or Setup 2=Maximal Assistance 6=Modified [place] 3=Moderate Assistance 7=Complete [place] Bed Mobility: 6 Transfers (B,C,W/C) (FIM): 6 Gait: 6 uses cane with ambulation PLOF PT Evaluation-Current Subjective Patient and family are very agreeable to participate with PT. No c/o at this time. Pain Numeric Pain Scale: 0-No Pain Location: No Pain Reported Objective Patient Orientation: Person, Time, Situation Problem Solving: Fair Attachments: IV ROM/Strength ROM Lower Extremities bilateral LE WFL; noted arthritic joints Strenght Lower Extremities right knee flexion/extension 4/5; hip flexion 4/5; ankle dorsi/plantarflexion 4/ 5 left knee flexion/extension 4/5; hip flexion 4/5; ankle dorsi/plantarflexion 4/5 Integumentary/Posture Integumentary refer to nursing notes Bowel Incontinence: No Bladder Incontinence: No Posture scoliosis Neuromuscular (Tone, Coordination, Reflexes) grossly intact Sensory Vision: Wears Glasses Hearing: Impaired Sensation Right Lower Extremit: Intact Sensation Left Lower Extremity: Intact Transfers Functional [place] Measure 0=Not Assessed/NA 4=Minimal Assistance 1=Total Assistance 5=Supervision or Setup 2=Maximal Assistance 6=Modified [place] 3=Moderate Assistance 7=Complete [place] Transfers (B, C, W/C) (FIM): 5 Scootin Sit to/from Stand: 5 close SBA with gait belt in place for safety Gait Mode of Locomotion: Walk Anticipated Mode of Locomotion: Walk Gait (FIM): 5 Distance (FIM): 3=150 ft Distance: 350' Gait Level of Assist: 5 Gait Assistive Device: FWW Comments/Gait Description safe and functional with FWW (patient's cane is not available for use) Balance Sitting Static: Normal Sitting Dynamic: Normal Standing Static: Normal Standing Dynamic: Normal Assessment/Needs 81 y.o. female, will benefit from short term skilled PT to address functional mobility to ensure safe return to [place]. Patient's daughter is to bring patient's cane for use with this hospital stay. Rehab Potential: Good PT Mastercam Programmer Goals Skilled Nursing Goals PT Skilled Nursing Goals Time Frame: Oct 28, 2016 Transfers (B,C,W/C) (FIM): 6 Gait (FIM): 6 Gait distance (FIM): 3=150 ft Gait Level of Assist: 6 Gait Assistive Device: FWW, Cane Single Point (3 pronged cane) PT Plan Treatment/Plan Treatment Plan: Continue Plan of Care Treatment Plan: Education, Functional Activity Nanette, Functional Strength, Gait , Safety, Therapeutic Exercise, Transfers Treatment Duration: Oct 28, 2016 # of days/week 5 Visits Per Week: 5 Pt/Family Agrees w/Plan: Yes Safety Risks/Education Patient Education: Safety Issues Teaching Recipient: Patient, Family Teaching Methods: Discussion Response to Teaching: Verbalize Understanding Time/GCodes Time In: 1010 Time Out: 1035 Total Billed Treatment Time: 25 Total Billed Treatment 1 visit EVModC 25 min BANG CHURCH PT Oct 24, 2016 11:14
[2016-10-24 12:00] VITALS: BP 149/67
[2016-10-24] MEDS: NS IV 1000 ML 1,000 ML IV SCH (12:38)
--- NOTE | 2016-10-24 16:19 | Occupational Therapy Eval ---
OT Evaluation-General/PLF Medical Diagnosis Admission Date Oct 22, 2016 at 11:05 Medical Diagnosis: TIA vs CVA Onset Date: Oct 22, 2016 Therapy Diagnosis Therapy Diagnosis: decreased self care, decreased activity tolerance Height/Weight Height (Feet): 5 Height (Inches): 1.00 Weight (Pounds): 139 Weight (Ounces): 0.8 Precautions Precautions/Isolations: Fall Prevention, Standard Precautions Safety Interventions: Bed Exit Alarm, Reorient-Attempt, Reorient-PRN Referral Physician: Abe Referral Reason: Evaluation/Treatment Medical History Pertinent Medical History: Arthritis, Dementia, Heart Failure, HTN, Hypothroidism, Rheumatoid Arthritis Additional Medical History Dementia - Alzheimers. Anxiety, depression. L carotid stenosis. Recent [facility] stay Current History Admitted with difficulty moving R side, L facial droop Reviewed History: Yes Social History Home: Assisted Living ([facility]) ADL-Prior Level of Function Pt reported that she was able to manage all of her basic ADLs prior to event but she had some difficulty the two environments (home and in the hospital). She said she has never driven. Used a cane for walking ADL PLOF Comments Bathrooms are generally accessible at [employer] Self: No OT Current Status Subjective pt seen in room, up in bed, agreeable to OT. No pain mentioned. Mental Status/Objective Patient Orientation: Person, Time (Knew day of the week) Attachments: IV Current Glasses/Contacts: Yes Hand Dominance: Right Upper Extremity ROM Grossly WFL bilaterally. Arthritic changes in fingers and wrists. No lag observed Upper Extremity Sensation pt reported both sides felt about the same Upper Extremity Strength Grossly 4/5 bilat. No difference noted between sides. ADL-Treatment ADL-Current pt was able to move from supine to sit EOB without help. Able to doff and don slipper socks, sitting EOB. Pt stood with SBA and walked to bathroom with close SBA. FWW. She was able to get on and off toilet without help, using grab bars. She also managed clothing and leaned to the side to wipe her bottom, with no LOB. Stood at sink to wash hands SBA, with skilled cues for walker placement. Pt walked to recliner SBA, FWW and sat without help, chair alarm on. Pt was able to get a drink but mug was too heavy so some of the water was removed. Nursing notified that pt was up in recliner. Functional [place] Measure 0=Not Assessed/NA 4=Minimal Assistance 1=Total Assistance 5=Supervision or Setup 2=Maximal Assistance 6=Modified [place] 3=Moderate Assistance 7=Complete IndependenceIRFPAI Quality Coding Scale 6 Independent with activity with or without an assistive device 5 Patient requires set up or clean up by helper. Patient completes activity by themselves 4 Supervision or touching assist (CGA). [place] provide cues , steadying assist 3 The helper provides less than half the effort to complete the activity 2 The helper provides more than half the effort to complete the activity 1 Dependent. The helper does all the effort to complete an activity 7 Patient refused to complete or attempt activity 9 The patient did not perform the activity before the current illness or injury 88 Not attempted due to Medical conditions or safety concerns Education OT Patient Education: Modified ADL techniques, Purpose of tx/functional activities, Rehab process, Safety issues, Transfer techniques, Use of adapted equipment Teaching Recipient: Patient Teaching Methods: Demonstration, Discussion Response to Teaching: Reinforcement Needed OT Usp Goals Brush Filler Hand Goals Time Frame: October 31, 2016 Eating (FIM): 6 Grooming(FIM): 6 Bathing(FIM): 5 Upper Body Dressing(FIM): 6 Lower Body Dressing(FIM): 6 Toileting(FIM): 6 Toilet/Commode Transfer(FIM): 6 Shower Transfer(FIM): 6 Additional Goals: 2-Verbalize Understanding, 3-ImproveStrength/Nanette 1=Demonstrate adherence to instructed precautions during ADL tasks. 2=Patient will verbalize/demonstrate understanding of assistive devices/ modifications for ADL. 3=Patient will improve strength/tolerance for activity to enable patient to perform ADL's. OT Education/Plan Problem List/Assessment Assessment: Decreased Activ Tolerance, Decreased UE Strength, Impaired Self- Care Skills Pt would benefit from skilled occupational therapy to increase her independence in basic self care to allow her to return home safely and decrease caregiver burden. Discharge Recommendations Plan/Recommendations: Continue POC Treatment Plan/Plan of Care Treatment,Training & Education: Yes Patient would benefit from OT for education, treatment and training to promote independence in ADL's, mobility, safety and/or upper extremity function for ADL' s. Plan of Care: ADL Retraining, Functional Mobility, UE Funct Exercise/Act Treatment Duration: October 31, 2016 # of days/week 5 Visits Per Week: 5 Agreement: Yes Rehab Potential: Good Time/GCodes Start Time: 14:10 Stop Time: 14:33 Total Time Billed (hr/min): 23 Billed Treatment Time visit, 23 minutes evaluation low intensity MICKY WHITAKER OT Oct 24, 2016 16:19
[2016-10-24 16:29] VITALS: BP 170/72
[2016-10-24 20:46] VITALS: BP 169/73
[2016-10-24] MEDS: SIMvastatin 20 MG (ZOCOR) TAB PO SCH (21:37)
[2016-10-24] MEDS: MUPIROCIN 2% OINT 22 GM (BACTROBAN) TUBE NSEACH SCH (21:37)
[2016-10-24] MEDS: LACTOBACILLUS Acidoph/Bulgar (LACTINEX/FLORANEX) TAB PO SCH (21:37)
[2016-10-24] MEDS: LORazepam 0.5 MG (ATIVAN) TABLET PO SCH (21:37)
[2016-10-25] VITALS: BP 165/77
[2016-10-25] MEDS ORDERED: DIAZEPAM 2 MG (VALIUM) TAB PO ONE (00:45)
[2016-10-25] MEDS: LEVOTHYROXINE 125 MCG (LEVOTHROID) TABLET PO SCH (06:27)
[2016-10-25 08:00] VITALS: BP 155/70
[2016-10-25] MEDS: ASPIRIN 325 MG (5 GR) TABLET PO SCH (09:21)
[2016-10-25] MEDS: MUPIROCIN 2% OINT 22 GM (BACTROBAN) TUBE NSEACH SCH (09:21)
[2016-10-25] MEDS: MEMANTINE 10 MG (NAMENDA) TABLET PO SCH (09:21)
[2016-10-25] MEDS: DIVALPROX SPRINKLE 125 MG (DEPAKOTE) CAP PO SCH (09:21)
[2016-10-25] MEDS: ATENOLOL 50 MG (TENORMIN) TAB PO SCH (09:22)
[2016-10-25] MEDS: VITAMIN D3 1,000 UNITS (CHOLECALCIFEROL) TABLET PO SCH (09:22)
[2016-10-25] MEDS: FLUTICASONE NASAL SPRAY (FLONASE) 16 GM BTL NS SCH (09:23)
[2016-10-25] MEDS ORDERED: ASPI-808 PO ×2 (09:28→10:35)
[2016-10-25] MEDS ORDERED: ATOR20TA49 PO ×2 (09:28→10:35)
[2016-10-25] MEDS ORDERED: LOSA50TA36 PO ×2 (09:28→10:35)
[2016-10-25] MEDS ORDERED: SULF1TAB35 PO ×2 (09:28→10:35)
[2016-10-25] MEDS ORDERED: MUPI15CR TP ×2 (09:28→10:35)
--- NOTE | 2016-10-25 09:33 | Discharge Inst-Home Health ---
Discharge Inst-to Home Health Patient Instructions Patient Instructions/FollowUp: follow up with zachery next week as previously ordered Patient Problems: tia htn weakness memory loss skin lesion on buttock - staph infection VIA [place], [place] DISCHARGE ORDERS Allergies: Coded Allergies: No Known Drug Allergies (Unverified , 03/07/16) Height (Feet): 5 Height (Inches): 1.00 Weight (Pounds): 139 Weight (Ounces): 0.0 Home Health Need/Face to Face Reason Pt Homebound does not drive, lives at assisted living I Have Seen Pt Stap-bu-Wtxr: Yes Date of Face to Face: Oct 25, 2016 Discharged To: Other Diagnosis/Conditions HH Order: tia htn weakness memory loss skin lesion on buttock - staph infection yes Consult/Follow Up/New Order *I certify that based on my findings, the following services are medically necessary Home Health Services: Services: Nursing Services, Physical Therapy-Evaluate & Treat My clinical findings support the need for the above services; see Diagnosis. Dicharge Diet: Regular Diet Daily Activity as Tolerated: Yes Discharge Medications: New, Converted, or Re-newed RX: Transmited to Pharmacy ([facility]) I certify that this patient is under my care and that I, a nurse practitioner or a physician; a assistant wrestling coach working with me, had a face to face encounter that - meets the physician face to face encounter requirements with this patient as dated. NATE ADAN MD Oct 25, 2016 09:33
--- NOTE | 2016-10-25 09:37 | Discharge Summary ---
Diagnosis/Chief Complaint Date of Admission Oct 22, 2016 at 11:05 Date of Discharge Discharge Date: Oct 25, 2016 Discharge Time: 1000 Admission Diagnosis Admission Diagnosis 1. Acute CVA with right arm weakness--Admit and check carotids, ECHO, MRI of brain, Start Aspirin, Start PT/OT, may need inpatient rehab 2. Left Carotid Artery Stenosis of 60-65%--discussed medical management with patient and daughter due to age and comorbidities 3. Dementia with Behavior Disorder--resume depakote, exelon, namenda, lorazepam 4. Rheumatoid Arthritis--stable 5. Hypertension--restart atenolol and monitor BP--okay with keeping it between 150-160 systolic for perfusion Discharge Diagnosis TIA DEMENTIA WITH BEHAVIORS RA HTN GENERALIZED WEAKNESS CAROTID ARTERY STENOSIS ON LEFT SKIN LESION ON BUTTOCK Reason Hospital Visit PT INITIALLY ADMITTED TO THE HOSPITAL WITH RIGHT HAND WEAKNESS - CONCERN FOR STROKE- IMAGING NEGATIVE, CAROTID WITH STENOSIS, BUT NON OCCLUSIVE FAMILY AND PT DESIRE TRANSFER BACK TO ASSISTED LIVING. Discharge Summary Discharge Physical Examination Allergies: Coded Allergies: No Known Drug Allergies (Unverified , 03/07/16) Vitals & I&Os Vital Signs Date Time Temp Pulse Resp B/P (MAP) Pulse Ox O2 Delivery O2 Flow Rate FiO2 10/25/16 08:00 97.0 57 18 155/70 94 Room Air General Appearance: Alert, Oriented X3, Cooperative, No Acute Distress HEENT: Atraumatic, PERRLA, EOMI, Mucous Memb Moist/[place] Respiratory: Clear to Auscultation, Normal Air Movement Cardiovascular: Regular Rate Abdominal: Normal Bowel Sounds, Soft, No Tenderness Extremities: Other (CHRONIC DEFORMITIES OF FINGERS) Skin: Other (SKIN LESION ON BUTTOCK - DRESSING C/D/I - CHRONIC WOUND WITH DRYNESS AND ERYTHEMA OF SKIN) Neuro: Normal Speech, Normal Tone, Other (STRENGTH 4/5 RIGHT HAND 5/5 LEFT HAND 5/5 BILATERAL LOWER EXTREMITIES) Psych/Mental Status: Mental Status NL, Mood NL Hospital Course TIA - - MRI OF BRAIN NEGATIVE, CAROTID REPORT SHOWS LEFT CAROTID ARTERY STENOSIS - BUT DOES NOT APPEAR TO BE AN UNSTABLE PLAQUE. CONTINUE WITH ASPIRIN AT 325MG DAILY. DEMENTIA WITH BEHAVIORS - CONTINUE WITH HOME MEDICATIONS. RA - STABLE HTN - CONTINUE WITH ATENOLOL, ADD LOSARTAN 50MG DAILY, CONTINUE SPIRONOLACTONE. DISCHARGE TO HOME TODAY. Discharge Condition at discharge IMPROVED Instructions to patient/family Please see electonic discharge instructions given to patient. Discharge Medications Reviewed and agree with Discharge Medication list on patient's Discharge Instruction sheet Clinical Quality Measures DVT/VTE Risk/Contraindication: Risk Factor Score Per Nursin RFS Level Per Nursing on Admit: 4+=Very High NATE ADAN MD Oct 25, 2016 09:37
[2016-10-25] MEDS ORDERED: MUPIROCIN 2% OINT 22 GM (BACTROBAN) TUBE NSEACH SCH (10:45)
--- NOTE | 2016-10-26 11:08 | ECHOCARDIOGRAPHY REPORT ---
DATE OF SERVICE: 10/23/2016 DATE OF SERVICE: 10/23/2016. ORDERING PHYSICIAN: Dr. Fish. PRIMARY PHYSICIAN: Dr. Saravia. CLINICAL DIAGNOSIS: Cerebrovascular accident. MEASUREMENTS: 1. Left atrium 3.9. 2. Aortic root 2.5. 3. LV diameter, diastolic, 4.1. 4. IVS thickness, diastolic, 1.0. 5. LVPW thickness, diastolic, 1.0. DESCRIPTION: Two-dimensional echocardiography shows normal global left ventricular systolic function with normal regional wall motion. Aortic, mitral, and tricuspid valve leaflets show good leaflet excursion. There appears to be mild aortic valve sclerosis. The aortic valve leaflet structure is not very well visualized. There is no Doppler evidence of significant valvular stenosis. Doppler imaging indicates trivial to mild mitral and tricuspid regurgitation. Mitral inflow is consistent with grade 1 diastolic dysfunction of the left ventricle. There is no evidence of any intracardiac thrombus on the study. Good subcostal views are not available. Pulmonary artery systolic pressure is estimated to be 25-30 mmHg. CONCLUSIONS: 1. Normal global left ventricular systolic function with an ejection fraction approximately 65%. 2. Trivial mild and tricuspid regurgitation. 3. Mild aortic valve sclerosis without evidence of significant valvular stenosis. 4. Pulmonary artery systolic pressure is estimated to be 25-30 mmHg. 5. No evidence of any significant intracardiac thrombus on this transthoracic echocardiographic study. Job ID: [id number] DocumentID: [id number] Dictated Date: 10/25/2016 16:31:42 Bow Making Machine Operator Date: 10/26/2016 08:25:14 Dictated By: JORGE RUVALCABA MD, MA, FACP, FACC,
== END 2016-10-25 11:33 | disposition home health service (06) | DRG 69 ==
LOC: EDUNIT# 07:39 → ER 07:40 → 4TH 11:05 → ENPENDDIS 10-25 10:00
PROVIDERS: ADMIT Family Medicine; ATTEND Family Medicine
DX: G45.9 Transient cerebral ischemic attack, unspecified (principal); I65.22 Occlusion and stenosis of left carotid artery; G81.91 Hemiplegia, unspecified affecting right dominant side; R29.810 Facial weakness; I11.0 Hypertensive heart disease with heart failure; I50.9 Heart failure, unspecified; G30.9 Alzheimer's disease, unspecified; F02.81 Dementia in other diseases classified elsewhere, unspecified severity, with behavioral disturbance; Z66 Do not resuscitate; M06.9 Rheumatoid arthritis, unspecified; F41.9 Anxiety disorder, unspecified; F32.9 Major depressive disorder, single episode, unspecified; E03.9 Hypothyroidism, unspecified; E78.00 Pure hypercholesterolemia, unspecified; L98.9 Disorder of the skin and subcutaneous tissue, unspecified
CPT/HCPCS: 36415; 51701; 70450; 70551; 71010; 80053; 81000; 82962; 84484; 85007; 85025; 85027; 85379; 85610; 85730; 87070; 87077; 87186; 87205; 93005; 93041; 93306; 93880; 94760; 96374

== ENCOUNTER 2018-02-10 04:06 | Emergency (ER) | payer MEDICARE, MEDICAID ==
[~2018-02-10] VITALS: Ht 160 cm; Wt 81.6 kg
[~2018-02-10 04:06] MED LIST changes: +ASPI-808 PO; +ATOR20TA49 PO; +CHOL200025 PO; +CHOL20003 PO; +CITA20TA9 PO; +DIVA125C10 PO; +FLUT16SP22 NSEACH; +GLUC1CAP37 PO; +GLUC1TAB20 PO; +LACT10SO PO; +LACT1CAP45 PO; +LEVO125T6 PO; +LORA0.5T PO; +LOSA50TA36 PO; +MELO15TA39 PO; +MEMA10TA22 PO; +MUPI15CR TP; +RIVA1PAT TD; +SIMV10TA3 PO; +SIMV20TA3 PO; +SPIR25TA5 PO; +SULF1TAB35 PO
[2018-02-10 04:24] LABS: BASOPHILS % (AUTO) 0 % (0-10); EOSINOPHILS # (AUTO) 0.6 10^3/uL (0.0-0.3); EOSINOPHILS % (AUTO) 9 % (0-10); HEMATOCRIT 30 % (35-52); HEMOGLOBIN 10.1 G/DL (11.5-16.0); LYMPHOCYTES # (AUTO) 1.3 X 10^3 (1.0-4.0); LYMPHOCYTES % (AUTO) 20 % (12-44); MEAN CORPUSCULAR HEMOGLOBIN 33 PG (25-34); MEAN CORPUSCULAR HGB CONC 34 G/DL (32-36); MEAN CORPUSCULAR VOLUME 97 FL (80-99); MEAN PLATELET VOLUME 8.8 FL (7.4-10.4); MONOCYTES # (AUTO) 0.8 X 10^3 (0.0-1.0); MONOCYTES % (AUTO) 12 % (0-12); NEUTROPHILS # (AUTO) 3.7 X 10^3 (1.8-7.8); NEUTROPHILS % (AUTO) 58 % (42-75); PLATELET COUNT 256 10^3/uL (130-400); RED BLOOD COUNT 3.08 10^6/uL (4.35-5.85); RED CELL DISTRIBUTION WIDTH 12.5 % (10.0-14.5); WHITE BLOOD COUNT 6.3 10^3/uL (4.3-11.0)
[2018-02-10 04:32] LABS: BILIRUBIN,URINE NEGATIVE (NEGATIVE); CLARITY,URINE CLEAR; COLOR,URINE YELLOW; GLUCOSE, URINE (UA) NEGATIVE (NEGATIVE); KETONES,URINE NEGATIVE (NEGATIVE); LEUKOCYTE ESTERASE ,URINE 1+ (NEGATIVE); NITRITE,URINE NEGATIVE (NEGATIVE); PH,URINE 5 (5-9); PROTEIN,URINE NEGATIVE (NEGATIVE); UROBILINOGEN,URINE NORMAL (NORMAL)
[2018-02-10 04:36] LABS: ALBUMIN 3.4 GM/DL (3.2-4.5); BILIRUBIN,TOTAL 0.4 MG/DL (0.1-1.0); CALCIUM 9.2 MG/DL (8.5-10.1); CREATININE SERUM 1.83 MG/DL (0.60-1.30); TOTAL PROTEIN 6.2 GM/DL (6.4-8.2)
[2018-02-10 04:41] LABS: BACTERIA,URINE NEGATIVE /HPF; HYALINE CASTS, URINE 0-2 /LPF; SQUAMOUS EPITHELIAL CELL,UR RARE /HPF; WBC,URINE RARE /HPF
[2018-02-10] MEDS ORDERED: RIVA1PAT3 (04:41)
[2018-02-10] MEDS ORDERED: RANI150T11 (04:41)
[2018-02-10] MEDS ORDERED: RISP0.5T3 (04:41)
[2018-02-10] MEDS ORDERED: NS IV 1000 ML 1,000 ML IV ONE (04:45)
[2018-02-10 04:57] LABS: FREE T4 (FREE THYROXINE) 0.98 NG/DL (0.70-1.48); VALPROIC ACID 4.9 UG/ML (50.0-100.0)
[2018-02-10] MEDS ORDERED: fentaNYL INJECTION 100 MCG/2 ML AMP IVP ONE (05:30)
--- NOTE | 2018-02-10 06:09 | Diagnostic Imaging Report ---
INDICATION: Status post fall. Altered mental status, dementia. TECHNIQUE: 3 views of the left elbow CORRELATION STUDY: None FINDINGS: There is suboptimal positioning of the left elbow. Given limitations, definitive acute fracture does not appear to be present. There does appear to be degenerative type change with loss of smooth articular surfaces and osteophyte formation. There is deformity about the radial head appearing to be likely nonacute. IV catheter is also present of the antecubital region obscuring evaluation. No definitive abnormal joint effusion. Soft tissue defect is suspected posteriorly. IMPRESSION: 1. Limitations in assessment left elbow demonstrates no definite evidence for acute bony abnormality. Likely prior traumatic degenerative changes are present. If symptoms persist, repeat imaging would be recommended. Dictated by: Dictated on workstation # [id number]
--- NOTE | 2018-02-10 06:11 | Diagnostic Imaging Report ---
INDICATION: Status post fall, dementia, altered mental status. TECHNIQUE: AP pelvis 5:25 AM CORRELATION STUDY: None FINDINGS: There is rotation of the pelvis. There is leftward curvature of the lumbar spine. No acute displaced pelvic fracture. The pubic symphysis particularly superiorly are fairly thin. Bilateral hip joints appearing maintained. IMPRESSION: Negative for acute displaced pelvic fracture. Dictated by: Dictated on workstation # [id number]
--- NOTE | 2018-02-10 06:12 | Diagnostic Imaging Report ---
INDICATION: Status post fall. Altered mental status, dementia.. TECHNIQUE: Single view chest 5:26 AM. CORRELATION STUDY: 10/22/2016 FINDINGS: Marked rightward curvature of the thoracic spine resulting in distortion of the chest anatomy. Given this, heart size is mildly enlarged. Vasculature overall within normal limits. Lung yanes appearing generally clear without evidence for significant infiltrate. No acute appearing displaced fracture. IMPRESSION: 1. Stable chest demonstrates no acute traumatic abnormality. Dictated by: Dictated on workstation # [id number]
--- NOTE | 2018-02-10 06:33 | ED Fall/Injury ---
General Chief Complaint: Trauma-Non Activation Stated Complaint: FALL Nursing Triage Note: PT BROUGHT IN BY EMS FROM [facility] WITH COMPLAINT OF FALL. PT WAS FOUND LYING IN DOOR WAY OF ANOTHER RESIDENTS ROOM, NAKED AND HOLLERING. PT WAS INITIALLY COMPLAINING OF RIGHT SIDE PAIN, NECK, BACK, AND RIGHT SIDE ELBOW PAIN. PT ALSO COMPLAINING OF RINGING IN HER EARS. PER EMS FROM CUSTODIAL STAFF, PT RECENETLY RETURNED FROM [facility] AND HAD NOT BEEN ACTING LIKE HERSELF, MORE CONFUSED AND SEDATED. Source: patient Exam Limitations: no limitations (MICHAEL KUMAR MD) History of Present Illness Date Seen by Provider: Feb 10, 2018 Time Seen by Provider: 04:07 Initial Comments This 82-year-old woman presents to the emergency room via EMS after having a suspected fall at [facility]. Patient was found on the floor of another patient's room naked. She complains of pain on her right side, back , neck, and left elbow. She has contusions to the right forehead. She has dementia at baseline. [facility] living staff noted that she was recently admitted at [facility] for about one month. She returned yesterday. They note a marketed decline upon her return home from when she left. She has not been as mobile or as alert. She arrives in c-collar. Occurred: just prior to arrival (MICHAEL KUMAR MD) Allergies and Home Medications Allergies Coded Allergies: No Known Drug Allergies (Unverified , 03/07/16) Home Medications Aspirin 325 Mg Tablet, 325 MG PO DAILY@0900 Prescribed by: GABRIELLE ALEJO on 10/25/16 1035 Atenolol 100 Mg Tablet, 100 MG PO DAILY, (Reported) Atorvastatin Calcium 20 Mg Tablet, 20 MG PO HS Prescribed by: GABRIELLE ALEJO on 10/25/16 1035 Cholecalciferol (Vitamin D3) 2,000 Unit Capsule, 4,000 UNIT PO DAILY, (Reported) TAKES 2 (2,000 UNIT) CAPSULES Citalopram Hydrobromide 20 Mg Tablet, 20 MG PO DAILY, (Reported) Divalproex Sodium 125 Mg Cap.sprink, 125 MG PO TID, (Reported) Fluticasone Propionate 16 Gm [place].susp, 1 SPRAY NSEACH BID, (Reported) Glucosa Levin 2Kcl/Chondroitin Levin 1 Each Capsule, 3 CAP PO DAILY, (Reported) Lactobacillus Acidophilus 1 Each Capsule, 1 CAP PO HS, (Reported) Lactulose 10 Gm/15 Ml Solution, 30 ML PO BID, (Reported) Levothyroxine Sodium 125 Mcg Tablet, 125 MCG PO MoWeFrSa, (Reported) Lorazepam 0.5 Mg Tablet, 0.25 MG PO HS, (Reported) Losartan Potassium 50 Mg Tablet, 50 MG PO DAILY Prescribed by: GABRIELLE ALEJO on 10/25/161034 Meloxicam 15 Mg Tablet, 15 MG PO DAILY, (Reported) Memantine HCl 10 Mg Tablet, 10 MG PO BID, (Reported) Mupirocin Calcium 15 Gm Cream..g., 0.5 GM TP BID apply to skin lesion on buttock Prescribed by: GABRIELLE ALEJO on 10/25/161034 Rivastigmine 4.6 Mg Patch, 4.6 MG TD DAILY, (Reported) Spironolactone 25 Mg Tablet, 25 MG PO DAILY, (Reported) Sulfamethoxazole/Trimethoprim 1 Each Tablet, 1 EACH PO BID Prescribed by: GABRIELLE ALEJO on 10/25/16 103 Patient Home Medication List Home Medication List Reviewed: Yes (MICHAEL KUMAR MD) Review of Systems Constitutional: no symptoms reported Eyes: No Symptoms Reported Ears, Nose, Mouth, Throat: no symptoms reported Respiratory: no symptoms reported Cardiovascular: no symptoms reported Gastrointestinal: no symptoms reported Genitourinary: no symptoms reported : No Musculoskeletal: see HPI Skin: see HPI Psychiatric/Neurological: See HPI (MICHAEL KUMAR MD) Past [facility] Hx Patient Social History Alcohol Use: Denies Use Recreational Drug Use: No 2nd Hand Smoke Exposure: No Recent Foreign Travel: No Contact w/Someone Who Travel: No Recent Infectious Disease Expo: No Recent Hopitalizations: Yes ([facility]) (MICHAEL KUMAR MD) Immunizations Up To Date Date of Pneumonia Vaccine: Jul 24, 2016 (MICHAEL KUMAR MD) Seasonal Allergies Seasonal Allergies: No (MICHAEL KUMAR MD) Past Medical History Surgeries: No Respiratory: No Cardiac: Yes ( CHF) High Cholesterol, Hypertension Neurological: Yes ([facility]) Dementia : No Gastrointestinal: No Musculoskeletal: No Endocrine: Yes Hypothyroidsim Cancer: No Psychosocial: Yes Anxiety, Depression (MICHAEL KUMAR MD) Family Medical History No Pertinent Family Hx (MICHAEL KUMAR MD) Physical Exam Vital Signs Vital Signs - First Documented (ROSALIA PATEL MD) Vital Signs Capillary Refill : Less Than 3 Seconds (MICHAEL KUMAR MD) Height, Weight, BMI Height: 5'3.00" Weight: 180lbs. 0.0oz. 81.698069mq; 25.8 BMI Method:Estimated General Appearance: WD/WN, no apparent distress HEENT: PERRL/EOMI, pharynx normal, other (contusion on the forehead) Neck: non-tender, normal inspection Cardiovascular: regular rate, rhythm, no edema, no murmur Respiratory: chest non-tender, lungs clear, normal breath sounds, no respiratory distress, no accessory muscle use Gastrointestinal: normal bowel sounds, non tender, soft Back: normal inspection, no vertebral tenderness Extremities: other (scattered bruising throughout the extremities, more extensive on the left elbow. Arthritic deformity of the hands. 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, alert, disoriented x 3 Skin: normal color, warm/dry, ecchymosis (MICHAEL KUMAR MD) [place] Coma Score Best Eye Response: (4) Open Spontaneously Best Verbal Response: (4) Confused Conversation Best Motor Response: (6) Obeys Commands Davey Total: 14 (MICHAEL KUMAR MD) Progress/Results/Core Measures Results/Orders Lab Results Laboratory Tests Test 02/10/18 04:09 02/10/18 04:26 Range/Units White Blood Count 6.3 4.3-11.0 10^3/uL Red Blood Count 3.08 L 4.35-5.85 10^6/uL Hemoglobin 10.1 L 11.5-16.0 G/DL Hematocrit 30 L 35-52 % Mean Corpuscular Volume 97 80-99 FL Mean Corpuscular Hemoglobin 33 25-34 PG Mean Corpuscular Hemoglobin Concent 34 32-36 G/DL Red Cell Distribution Width 12.5 10.0-14.5 % Platelet Count 256 130-400 10^3/uL Mean Platelet Volume 8.8 7.4-10.4 FL Neutrophils (%) (Auto) 58 42-75 % Lymphocytes (%) (Auto) 20 12-44 % Monocytes (%) (Auto) 12 0-12 % Eosinophils (%) (Auto) 9 0-10 % Basophils (%) (Auto) 0 0-10 % Neutrophils # (Auto) 3.7 1.8-7.8 X 10^3 Lymphocytes # (Auto) 1.3 1.0-4.0 X 10^3 Monocytes # (Auto) 0.8 0.0-1.0 X 10^3 Eosinophils # (Auto) 0.6 H 0.0-0.3 10^3/uL Basophils # (Auto) 0.0 0.0-0.1 10^3/uL Sodium Level 136 135-145 MMOL/L Potassium Level 5.0 3.6-5.0 MMOL/L Chloride Level 107 98-107 MMOL/L Carbon Dioxide Level 17 L 21-32 MMOL/L Anion Gap 12 5-14 MMOL/L Blood Urea Nitrogen 54 H 7-18 MG/DL Creatinine 1.83 H 0.60-1.30 MG/DL Estimat Glomerular Filtration Rate 26 BUN/Creatinine Ratio 30 Glucose Level 104 70-105 MG/DL Calcium Level 9.2 8.5-10.1 MG/DL Corrected Calcium 9.7 8.5-10.1 MG/DL Total Bilirubin 0.4 0.1-1.0 MG/DL Aspartate Amino Transf (AST/SGOT) 24 5-34 U/L Alanine Aminotransferase (ALT/SGPT) 19 0-55 U/L Alkaline Phosphatase 98 40-136 U/L Total Protein 6.2 L 6.4-8.2 GM/DL Albumin 3.4 3.2-4.5 GM/DL Thyroid Stimulating Hormone (TSH) 4.05 0.35-4.94 UIU/ML Free Thyroxine 0.98 0.70-1.48 NG/DL Valproic Acid (Depakene) Level 4.9 L 50.0-100.0 UG/ML Urine Color YELLOW Urine Clarity CLEAR Urine pH 5 5-9 Urine Specific [place] 1.020 1.016-1.022 Urine Protein NEGATIVE NEGATIVE Urine Glucose (UA) NEGATIVE NEGATIVE Urine Ketones NEGATIVE NEGATIVE Urine Nitrite NEGATIVE NEGATIVE Urine Bilirubin NEGATIVE NEGATIVE Urine Urobilinogen NORMAL NORMAL MG/DL Urine Leukocyte Esterase 1+ H NEGATIVE Urine RBC (Auto) NEGATIVE NEGATIVE Urine RBC NONE /HPF Urine WBC RARE /HPF Urine Squamous Epithelial Cells RARE /HPF Urine Crystals NONE /LPF Urine Bacteria NEGATIVE /HPF Urine Casts PRESENT /LPF Urine Hyaline Casts 0-2 H /LPF Urine Mucus SMALL H /LPF Urine Culture Indicated NO (ROSALIA PATEL MD) Medications Given in ED Current Medications Medications Dose Ordered Sig/Montse Route Start Time Stop Time Status Last Admin Dose Admin Fentanyl Citrate 25 mcg ONCE ONCE IVP 02/10/18 05:30 02/10/18 05:31 DC 02/10/18 05:33 25 MCG Risperidone 0.5 mg ONCE ONCE PO 02/10/18 06:45 02/10/18 06:46 DC 02/10/18 06:45 0.5 MG Sodium Chloride 1,000 ml @ 0 mls/hr Q0M ONCE IV 02/10/18 04:45 02/10/18 04:46 DC 02/10/18 05:15 1,000 MLS/HR (ROSALIA PATEL MD) Vital Signs/I&O 02/10/18 02/10/18 04:06 04:06 Temp 97.9 97.9 Pulse 87 87 Resp 18 18 B/P (MAP) 140/67 (91) 140/67 (91) Pulse Ox 94 94 O2 Delivery Room Air (ROSALIA PATEL MD) Blood Pressure Mean: 91 Progress Progress Note : Time: 06:41 Progress Note Imaging was ordered based on patient's complaints and exam findings. She was treated with fentanyl 25 g IV for pain. A liter of IV fluid was infused for treatment of the renal insufficiency. No significant traumatic injuries were identified. X-ray reports are pending at this time. Care of this patient is being transferred to Dr. Patel. In particular we are awaiting the elbow x- ray report as patient does have pain with range of motion and tenderness in the elbow. Patient seems to be having increasing confusion. Her morning Risperdal dose was ordered. I did update the assisted living facility and inform them patient will likely be discharged shortly. I do have concerns about this patient's functional status. She may need to be reassessed for longterm placement rather than assisted living. A copy of this note will be sent to Dr. Hou. (MICHAEL KUMAR MD) Progress Note : Progress Note 0709: X-ray reviewed. No acute fracture noted. I did give Dr. Fish heads- up regarding this patient and she does appear to be sundowning. She has had multiple med changes recently and is just on Risperdal currently. We did give her her morning dose of Risperdal 0.5 mg by mouth. Discharge back to longterm with return precautions. long-term informed and Dr. Fish informed. Information sent with patient. (ROSALIA PATEL MD) Diagnostic Imaging Diagonstic Imaging: Xray Plain Films/CT/US/NM/MRI: chest Comments Chest x-ray viewed by me. Report not yet available. No acute abnormalities were appreciated. Diagonstic Imaging: CT Plain Films/CT/US/NM/MRI: other (thoracic and lumbar spine) Comments CT of the thoracic and lumbar spine viewed by me and [facility] report reviewed. No acute injury identified. Diagonstic Imaging: CT Plain Films/CT/US/NM/MRI: facial bones, c-spine, head Comments CT of the head, face and cervical spine viewed by me and discussed that rad report reviewed. No acute traumatic injuries identified. Diagonstic Imaging: Xray Plain Films/CT/US/NM/MRI: pelvis Comments Pelvis x-ray viewed by me. Report not yet available. No acute injuries identified. (MICHAEL KUMAR MD) Comments [facility]IA [facility]. [place], [place] NAME: JO FLORENCE [facility] REC#: [id number] PT STATUS: REG ER : 1935 PHYSICIAN: MICHAEL KUMAR MD ADMIT DATE: 02/10/18/ER Draft Date of Exam:02/10/18 CHEST 1 VIEW, AP/PA ONLY INDICATION: Status post fall. Altered mental status, dementia.. TECHNIQUE: Single view chest 5:26 AM. CORRELATION STUDY: 10/22/2016 FINDINGS: Marked rightward curvature of the thoracic spine resulting in distortion of the chest anatomy. Given this, heart size is mildly enlarged. Vasculature overall within normal limits. Lung yanes appearing generally clear without evidence for significant infiltrate. No acute appearing displaced fracture. IMPRESSION: 1. Stable chest demonstrates no acute traumatic abnormality. Dictated on workstation # [id number] Dict: 02/10/18 0556 Trans: 02/10/1812 MANOJ [id number] Interpreted by: WENCESLAO CEVALLOS DO Electronically signed by: Comments VIA [place], [place] NAME: JO FLORENCE [facility] REC#: [id number] PT STATUS: REG ER : 1935 PHYSICIAN: MICHAEL KUMAR MD ADMIT DATE: 02/10/18/ER Draft Date of Exam:02/10/18 CT HEAD/FACE/CERVICAL WO PROCEDURE: CT head, face, and cervical spine without contrast. TECHNIQUE: Multiple contiguous axial images were obtained through the head, neck, and facial bones without the use of intravenous contrast. Sagittal and coronal reformations through the cervical spine and facial bones were also performed. INDICATION: Head and neck pain, fall, dementia COMPARISON: CT 10/22/2016 CT head: Age-related cerebral volume loss and chronic small vessel ischemic changes are present. There is no midline shift or mass effect. There is no hemorrhage. No focus of acute ischemia. There is no skull fracture. Mastoid air cells are clear. IMPRESSION: No acute intracranial abnormalities. CT face: Nasal septum is midline. Paranasal sinuses and mastoids are clear. There is no osseous lesion or fracture. The orbits and globes are normal. IMPRESSION: No facial fracture identified. CT cervical spine: Alignment is normal. There is no subluxation or fracture. Multilevel degenerative disc disease and facet joint arthropathy is seen. There is no paraspinous mass. IMPRESSION: No traumatic malalignment or fracture. Agree with preliminary report Dictated on workstation # [id number] Dict: 02/10/1807 Trans: 02/10/18 0639 MANOJ [id number] Interpreted by: CHIQUIS BENOIT Electronically signed by: Comments [facility] [place] [place] NAME: JO FLORENCE [facility] REC#: [id number] PT STATUS: REG ER : 1935 PHYSICIAN: MICHAEL KUMAR MD ADMIT DATE: 02/10/18/ER Draft Date of Exam:02/10/18 PELVIS INDICATION: Status post fall, dementia, altered mental status. TECHNIQUE: AP pelvis 5:25 AM CORRELATION STUDY: None FINDINGS: There is rotation of the pelvis. There is leftward curvature of the lumbar spine. No acute displaced pelvic fracture. The pubic symphysis particularly superiorly are fairly thin. Bilateral hip joints appearing maintained. IMPRESSION: Negative for acute displaced pelvic fracture. Dictated on workstation # [id number] Dict: 02/10/18 0555 Trans: 02/10/18 0610 MANOJ [id number] Interpreted by: WENCESLAO CEVALLOS DO Electronically signed by: [facility] Imaging: Xray Plain Films/CT/US/NM/MRI: other Comments [facility]. [place] NAME: JO FLORENCE [facility] REC#: [id number] PT STATUS: REG ER : 1935 PHYSICIAN: MICHAEL KUMAR MD ADMIT DATE: 02/10/18/ER Draft Date of Exam:02/10/18 ELBOW, LEFT, 3 VIEWS INDICATION: Status post fall. Altered mental status, dementia. TECHNIQUE: 3 views of the left elbow CORRELATION STUDY: None FINDINGS: There is suboptimal positioning of the left elbow. Given limitations, definitive acute fracture does not appear to be present. There does appear to be degenerative type change with loss of smooth articular surfaces and osteophyte formation. There is deformity about the radial head appearing to be likely nonacute. IV catheter is also present of the antecubital region obscuring evaluation. No definitive abnormal joint effusion. Soft tissue defect is suspected posteriorly. IMPRESSION: 1. Limitations in assessment left elbow demonstrates no definite evidence for acute bony abnormality. Likely prior traumatic degenerative changes are present. If symptoms persist, repeat imaging would be recommended. Dictated on workstation # [id number] Dict: 02/10/18 0553 Trans: 02/10/18 0608 MANOJ [id number] Interpreted by: WENCESLAO CEVALLOS DO Electronically signed by: (ROSALIA PATEL MD) Departure Impression Primary Impression: Fall on same level Qualified Codes: W18.30XA - Fall on same level, unspecified, initial encounter Additional Impressions: Left elbow contusion Qualified Codes: S50.02XA - Contusion of left elbow, initial encounter Dementia with behavioral disturbance Qualified Codes: F03.91 - Unspecified dementia with behavioral disturbance Acute renal insufficiency Disposition: 01 HOME, SELF-CARE Condition: Improved Departure-Patient Inst. Decision time for Depature: 07:10 (ROSALIA PATEL MD) Referrals: NATE HOU MD (PCP/Family) Primary Care Physician Patient Instructions: Contusion (DC), Dehydration, Adult (DC), Dementia (DC) Add. Discharge Instructions: All discharge instructions reviewed with patient and/or family. Voiced understanding. Encourage plenty of fluids. Follow-up with Dr. Hou on Monday or Monday for recheck and further evaluation regarding recent medication changes. Return for worse pain, fever, vomiting, weakness, breathing problems, behavioral disturbances or other concerns as needed. Copy Copies To 1: NATE HOU MD, JOSHUA T MD Feb 10, 2018 06:33 ROSALIA PATEL MD Feb 10, 2018 07:09
--- NOTE | 2018-02-10 06:39 | Diagnostic Imaging Report ---
PROCEDURE: CT head, face, and cervical spine without contrast. TECHNIQUE: Multiple contiguous axial images were obtained through the head, neck, and facial bones without the use of intravenous contrast. Sagittal and coronal reformations through the cervical spine and facial bones were also performed. INDICATION: Head and neck pain, fall, dementia COMPARISON: CT 10/22/2016 CT head: Age-related cerebral volume loss and chronic small vessel ischemic changes are present. There is no midline shift or mass effect. There is no hemorrhage. No focus of acute ischemia. There is no skull fracture. Mastoid air cells are clear. IMPRESSION: No acute intracranial abnormalities. CT face: Nasal septum is midline. Paranasal sinuses and mastoids are clear. There is no osseous lesion or fracture. The orbits and globes are normal. IMPRESSION: No facial fracture identified. CT cervical spine: Alignment is normal. There is no subluxation or fracture. Multilevel degenerative disc disease and facet joint arthropathy is seen. There is no paraspinous mass. IMPRESSION: No traumatic malalignment or fracture. Agree with preliminary report Dictated by: Dictated on workstation # [id number]
[2018-02-10] MEDS ORDERED: risperiDONE 0.25 MG (RisperDAL) TAB PO ONE (06:45)
[2018-02-10 07:35] VITALS: BP 138/72
--- NOTE | 2018-02-10 07:55 | Diagnostic Imaging Report ---
INDICATION: Status post fall, altered mental status, dementia, pain. TECHNIQUE: Noncontrast CT imaging of the thoracic and lumbar spine with sagittal and coronal reformatted images. FINDINGS: Thoracic spine: There is severe rightward curvature of the thoracic spine. This does limit assessment. Definitive acute fracture does not appear to be present. No significant compression deformity. Multilevel disc space narrowing throughout the thoracic spine. Significant osseous narrowing of the foramina and/or spinal canal does not appear to be suggested. There is diffuse bony demineralization present. Visualized portion of the posterior ribs appear to be intact. Visualized lung yanes relatively clear without significant pneumothorax or effusion. Lumbar spine: Marked severity leftward curvature lumbar spine is present. There is limitation to assessment. No acute appearing compression deformity or fracture about the lumbar spine. There is more focal leftward subluxation of L3 on L4 of approximately 9 mm. Additionally, there is grade 2 spondylolisthesis of L5 on S1 with bilateral L5 pars intra-articularis defects. Offset at approximately 12 mm. Hypertrophic facet arthropathy. Multilevel disc space narrowing particularly at the L5-S1, L3-L4, and L2-L3 levels with reactive endplate osteophyte formation. Osseous encroachment and narrowing of the foramina and spinal canal at these levels. SI joints with sclerosis, left greater than right. Cherry catheter is within the urinary bladder. Marked colonic diverticulosis. Fairly sizable right renal cyst. IMPRESSION: 1. Negative for acute fracture thoracic spine. 2. Negative for acute fracture of the lumbar spine. 3. Marked severity rightward curvature thoracic, leftward curvature lumbar scoliosis. Diffuse multilevel thoracic and lumbar spondylosis. 4. Grade 2 spondylolisthesis of L5 on S1 secondary to prior articular defects. A preliminary report was provided by [facility]. Dictated by: Dictated on workstation # [id number]
== END 2018-02-10 07:35 | disposition home or self-care (01) ==
LOC: EDUNIT# 04:06 → ER 04:07
DX: S50.02XA Contusion of left elbow, initial encounter (principal); F03.91 Unspecified dementia, unspecified severity, with behavioral disturbance; N28.9 Disorder of kidney and ureter, unspecified; E78.00 Pure hypercholesterolemia, unspecified; I11.0 Hypertensive heart disease with heart failure; I50.9 Heart failure, unspecified; G30.9 Alzheimer's disease, unspecified; E03.9 Hypothyroidism, unspecified; F41.9 Anxiety disorder, unspecified; F32.9 Major depressive disorder, single episode, unspecified; R40.2142 Coma scale, eyes open, spontaneous, at arrival to emergency department; R40.2242 Coma scale, best verbal response, confused conversation, at arrival to emergency department; R40.2362 Coma scale, best motor response, obeys commands, at arrival to emergency department; Z79.82 Long term (current) use of aspirin; Z79.51 Long term (current) use of inhaled steroids; W18.30XA Fall on same level, unspecified, initial encounter; Y92.098 Other place in other non-institutional residence as the place of occurrence of the external cause
CPT/HCPCS: 36415; 70450; 70486; 71045; 72125; 72128; 72131; 72170; 73080; 80053; 80164; 81000; 84439; 84443; 85025; 96361; 96374

== ENCOUNTER 2018-05-06 10:12 | Inpatient (IN) | payer MEDICARE, MEDICAID ==
[2018-05-06] VITALS (9 sets, daily range): BP systolic 20–146; BP diastolic 42–99
[~2018-05-06] VITALS: Ht 160 cm; Wt 66.7 kg
[~2018-05-06 10:12] MED LIST changes: +FLUT16SP22 NS; -FLUT16SP22 NSEACH; -LOSA50TA36 PO; +LOSA50TA7 PO; +RANI150T11 PO; +RISP0.5T3; +RIVA1PAT3
--- OUTSIDE RECORDS SUMMARY | 2018-05-06 10:24 | XMS REPORT | CCD ---
Author Author [facility] Organization [facility] Address [address] [place] [address] Phone Care Team Providers Care Cub Reporter Name Role Phone PP Unavailable CCM Unavailable Summary Purpose Interface Exchange Insurance Providers Payer name Policy type / Coverage type Covered green party ID Effective Begin Date Effective End Date WPS Medicare Part B Medicare Part B [id number] Unknown [facility] Medicare Part B [id number] 2013 Unknown Family history Daughter Diagnosis Age At Onset Diabetes mellitus Type 2 Unknown Brother Diagnosis Age At Onset Cancer Unknown Mother Diagnosis Age At Onset Dementia Unknown Father Diagnosis Age At Onset Cancer Unknown Social History Social History Element Codes Description Effective Dates Living arrangements Unknown Assisted Living [facility] 03/29/2018 Marital status Unknown 11/02/2016 Number of children Unknown 5 [id number] 02/20/2012 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, 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 Allergies, Adverse Reactions, Alerts Substance Reaction Codes Entered Date Inactivated Date Status * NO KNOWN DRUG ALLERGIES Unknown 02/20/2012 No Inactive Date Active * NO KNOWN FOOD ALLERGIES Unknown 05/01/2012 No Inactive Date Active Seasonal Unknown 12/31/2013 No Inactive Date Active Past Medical History Illness Codes Condition Status Onset Date Resolved Date Disorientation, unspecified ICD-9: 298.9 ICD-10: R41.0 Active 04/11/2018 Unknown Fever, unspecified ICD -9: 780.60 ICD-10: R50.9 Active 05/01/2018 Unknown Atrophy of thyroid (acquired) ICD-9: 244.8 ICD-10: E03.4 Active 05/02/2016 Unknown Essential (primary) hypertension ICD-9: 401.1 ICD-10: I10 Active 11/02/2016 Unknown Generalized anxiety disorder ICD-9: 300.02 ICD-10: F41.1 Active 10/14/2014 Unknown Mixed hyperlipidemia ICD-9: 272.4 ICD-10: E78.2 Active 12/01/2014 Unknown Other dysphagia ICD-9 : 787.29 ICD-10: R13.19 Active 09/19/2017 Unknown Glossodynia ICD-9: 529.6 ICD-10: K14.6 Active 07/06/2017 Unknown Diseases of lips ICD-9 : 528.5 ICD-10: K13.0 Active 02/28/2017 Unknown Disturbances of salivary secretion ICD-9: 527.7 ICD-10: K11.7 Active 04/04/2017 Unknown 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 Active 11/02/2016 Unknown Essential (primary) hypertension ICD-9: 401.9 ICD-10: I10 Active 06/05/2014 Unknown Hypothyroidism, unspecified ICD-9: 244.9 ICD-10: E03.9 Active 12/31/2013 Unknown Allergic rhinitis due to pollen ICD-9: 477.9 ICD-10: J30.1 Active 02/27/2014 Unknown Polyosteoarthritis, unspecified ICD-9: 715.00 ICD-10: M15.9 Active 07/17/2014 Unknown Cough ICD-9: 786.2 ICD-10: R05 Active 05/01/2012 Unknown Anxiety disorder, unspecified ICD-9: 311 ICD-10: F41.9 Active 02/20/2012 Unknown Mastodynia ICD-9: 611.71 ICD-10: N64.4 Active 04/14/2015 Unknown Alzheimer's dementia ICD-9: 331.0 Active 02/27/2014 Unknown Hyperlipidemia Unknown Active 12/02/2014 Unknown HYPERLIPIDEMIA ICD-9: 272.4 Active 12/01/2014 Unknown GENERALIZED ANXIETY DISEASE ICD-9: 300.02 Active 10/14/2014 Unknown Loose stools ICD-9: 787.7 Active 10/14/2014 Unknown Generalized osteoarthritis ICD-9: 715.00 Active 07/17/2014 Unknown Shoulder pain ICD-9: 719.41 Active 07/17/2014 Unknown ACUTE BRONCHITIS ICD-9 : 466.0 Active 06/05/2014 Unknown ESSENTIAL HYPERTENSION ICD-9: 401.9 Active 06/05/2014 Unknown ACUTE SINUSITIS ICD-9 : 461.9 Active 05/08/2014 Unknown Rash ICD-9: 782.1 Active 05/08/2014 Unknown Arm pain ICD-9: 729.5 Active 04/17/2014 Unknown Open wound of arm ICD- 9: 884.0 Active 04/17/2014 Unknown Weakness ICD-9: 780.79 Active 04/17/2014 Unknown ALLERGIC RHINITIS ICD- 9: 477.9 Active 02/27/2014 Unknown Weight loss ICD-9: 783.21 Active 02/27/2014 Unknown HYPOTHYROIDISM ICD-9: 244.9 Active 12/31/2013 Unknown Gait instability ICD-9 : 781.2 Active 12/09/2013 Unknown Encounter for long-term (current) use of other medications ICD-9: V58.69 Active 09/09/2013 Unknown Nose irritation ICD-9 : 478.19 Active 06/17/2013 Unknown Disp fx of fifth metatarsal bone of left foot with delayed healing ICD-9: V54.19 Active 01/22/2013 Unknown Osteoporosis ICD-9: 733.00 Active 01/22/2013 Unknown Oral candidiasis ICD-9 : 112.0 Active 05/31/2012 Unknown Cough ICD-9: 786.2 Active 05/01/2012 Unknown Maxillary sinusitis, acute ICD-9: 461.0 Active 05/01/2012 Unknown Sore throat ICD-9: 462 Active 05/01/2012 Unknown Insomnia ICD-9: 780.52 Active 03/22/2012 Unknown VACCIN FOR INFLUENZA ICD-9: V04.81 Active 03/22/2012 Unknown Depression Unknown Active 02/20/2012 Unknown Hypertension Unknown Active 02/20/2012 Unknown Hypothryroidism Unknown Active 02/20/2012 Unknown Osteoarthritis Unknown Active 02/20/2012 Unknown DEPRESSIVE DISORDER NEC ICD-9: 311 Active 02/20/2012 Unknown Mouth dryness ICD-9: 527.7 Active 02/20/2012 Unknown Problems Condition Codes Effective Dates Condition Status Disorientation, unspecified ICD-9: 298.9 ICD-10: R41.0 04/11/2018 Active Fever, unspecified ICD -9: 780.60 ICD-10: R50.9 05/01/2018 Active Atrophy of thyroid (acquired) ICD-9: 244.8 ICD-10: E03.4 05/02/2016 Active Essential (primary) hypertension ICD-9: 401.1 ICD-10: I10 11/02/2016 Active Generalized anxiety disorder ICD-9: 300.02 ICD-10: F41.1 10/14/2014 Active Mixed hyperlipidemia ICD-9: 272.4 ICD-10: E78.2 12/01/2014 Active Other dysphagia ICD-9 : 787.29 ICD-10: R13.19 09/19/2017 Active Glossodynia ICD-9: 529.6 ICD-10: K14.6 07/06/2017 Active Diseases of lips ICD-9 : 528.5 ICD-10: K13.0 02/28/2017 Active Disturbances of salivary secretion ICD-9: 527.7 ICD-10: K11.7 04/04/2017 Active 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 11/02/2016 Active Essential (primary) hypertension ICD-9: 401.9 ICD-10: I10 06/05/2014 Active Hypothyroidism, unspecified ICD-9: 244.9 ICD-10: E03.9 12/31/2013 Active Allergic rhinitis due to pollen ICD-9: 477.9 ICD-10: J30.1 02/27/2014 Active Polyosteoarthritis, unspecified ICD-9: 715.00 ICD-10: M15.9 07/17/2014 Active Cough ICD-9: 786.2 ICD-10: R05 05/01/2012 Active Anxiety disorder, unspecified ICD-9: 311 ICD-10: F41.9 02/20/2012 Active Mastodynia ICD-9: 611.71 ICD-10: N64.4 04/14/2015 Active Alzheimer's dementia ICD-9: 331.0 02/27/2014 Active Hyperlipidemia Unknown 12/02/2014 Active HYPERLIPIDEMIA ICD-9: 272.4 12/01/2014 Active GENERALIZED ANXIETY DISEASE ICD-9: 300.02 10/14/2014 Active Loose stools ICD-9: 787.7 10/14/2014 Active Generalized osteoarthritis ICD-9: 715.00 07/17/2014 Active Shoulder pain ICD-9: 719.41 07/17/2014 Active ACUTE BRONCHITIS ICD-9 : 466.0 06/05/2014 Active ESSENTIAL HYPERTENSION ICD-9: 401.9 06/05/2014 Active ACUTE SINUSITIS ICD-9 : 461.9 05/08/2014 Active Rash ICD-9: 782.1 05/08/2014 Active Arm pain ICD-9: 729.5 04/17/2014 Active Open wound of arm ICD- 9: 884.0 04/17/2014 Active Weakness ICD-9: 780.79 04/17/2014 Active ALLERGIC RHINITIS ICD- 9: 477.9 02/27/2014 Active Weight loss ICD-9: 783.21 02/27/2014 Active HYPOTHYROIDISM ICD-9: 244.9 12/31/2013 Active Gait instability ICD-9 : 781.2 12/09/2013 Active Encounter for long-term (current) use of other medications ICD-9: V58.69 2013 Active Nose irritation ICD-9 : 478.19 06/17/2013 Active Disp fx of fifth metatarsal bone of left foot with delayed healing ICD-9: V54.19 Active Osteoporosis ICD-9: 733.00 01/22/2013 Active Oral candidiasis ICD-9 : 112.0 05/31/2012 Active Cough ICD-9: 786.2 05/01/2012 Active Maxillary sinusitis, acute ICD-9: 461.0 05/01/2012 Active Sore throat ICD-9: 462 05/01/2012 Active Insomnia ICD-9: 780.52 03/22/2012 Active VACCIN FOR INFLUENZA ICD-9: V04.81 03/22/2012 Active Depression Unknown 02/20/2012 Active Hypertension Unknown 02/20/2012 Active Hypothryroidism Unknown 02/20/2012 Active Osteoarthritis Unknown 02/20/2012 Active DEPRESSIVE DISORDER NEC ICD-9: 311 02/20/2012 Active Mouth dryness ICD-9: 527.7 02/20/2012 Active Medications Medication Codes Instructions Start Date Stop Date Status Fill Instructions Depakote Sprinkles 125 mg capsule,delayed release RxNorm: 5469230 2 Capsule(s) PO QID 04/30/2018 05/29/2018 Active atenolol 50 mg tablet RxNorm: 617570 Tablet(s) PO TAKE ONE TABLET BY MOUTH DAILY 04/30/2018 03/25/2019 Active Ativan 0.5 mg tablet RxNorm: 618210 1 Tablet(s) PO TID 201708/27/2018 Active gabapentin 100 mg capsule RxNorm: 883537 1 Capsule(s) PO TID No Stop Date Active Ativan 0.5 mg tablet RxNorm: 472244 1 Tablet(s) PO TID 201704/29/2018 Inactive Linzess 72 mcg capsule RxNorm: 5529136 1 Capsule(s) PO daily 08/15/2018 Active Linzess 72 mcg capsule RxNorm: 7923100 1 Capsule(s) PO daily 04/17/2018 Inactive glucosamine 500 lk-qclinwocd-dav no1 416.6 mg-C 20 mg-valerie- bosw tablet RxNorm: 2 Tablet(s) PO daily 03/02/2018 08/27/2018 Active Depakote Sprinkles 125 mg capsule,delayed release RxNorm: 7030159 1 Capsule(s) PO 125 q am and 250 8pm UD 03/02/20182017 Inactive levothyroxine 125 mcg tablet RxNorm: 964374 TAKE ONE TABLET BY MOUTH DAILY EXCEPT TAKE 1/2 TABLET BY MOUTH ON Wednesdays02/20/2018 05/20/2018 Active escitalopram 10 mg tablet RxNorm: 768105 1 Tablet(s) PO QPM 09/10/2018 Active this replaces the citalopram Risperdal 0.5 mg tablet RxNorm: 732288 1 Tablet(s) PO UD 1/2 bid x 1 wk then 1/2 daily x 1 wk then stop 02/13/20182017 Inactive see updated rx changes Depakote Sprinkles 125 mg capsule,delayed release RxNorm: 9061767 1 Capsule(s) PO TID 02/13/2018 03/01/2018 Inactive Floranex 1 million cell tablet RxNorm: TAKE ONE TABLET BY MOUTH EVERY NIGHT AT BEDTIME 01/16/2018 02/01/2018 Inactive ranitidine 150 mg tablet RxNorm: 611768 TAKE ONE TABLET BY MOUTH EVERY NIGHT AT BEDTIME 01/08/2018 07/06/2018 Active glucosamine 500 no-begxqachc-dgr no1 416.6 mg-C 20 mg-valerie- bosw tablet RxNorm: 3 Tablet(s) PO daily 01/08/2018 03/01/2018 Inactive citalopram 20 mg tablet RxNorm: 539638 TAKE ONE TABLET BY MOUTH DAILY 12/18/2017 02/12/2018 Inactive lorazepam 0.5 mg tablet RxNorm: 509771 1 Tablet(s) PO QHS 11/2902/12/2018 Inactive Plavix 75 mg tablet RxNorm: 566625 TAKE ONE TABLET BY MOUTH DAILY 11/20/2017 05/18/2018 Active meloxicam 15 mg tablet RxNorm: 082101 TAKE ONE TABLET BY MOUTH DAILY 11/13/2017 05/11/2018 Active spironolactone 25 mg tablet RxNorm: 387654 TAKE ONE TABLET BY MOUTH DAILY 11/13/2017 05/11/2018 Active Vitamin D3 2,000 unit tablet RxNorm: 568764 TAKE TWO TABLETS BY MOUTH ONCE DAILY 11/06/2017 05/04/2018 Active atenolol 100 mg tablet RxNorm: 957060 TAKE ONE TABLET BY MOUTH DAILY 10/31/2017 04/29/2018 Inactive memantine 10 mg tablet RxNorm: 441998 TAKE ONE TABLET BY MOUTH TWICE A DAY 10/30/2017 02/01/2018 Inactive levothyroxine 125 mcg tablet RxNorm: 255795 Tablet(s) TAKE ONE TABLET BY MOUTH EVERY DAY 2017 01/31/2018 Inactive Floranex 1 million cell tablet RxNorm: 1 Tablet(s) PO QHS 01/11/2018 Inactive Floranex 1 million cell tablet RxNorm: 1 Tablet(s) PO QHS 09/13/2017 Inactive Depakote Sprinkles 125 mg capsule,delayed release RxNorm: 4032571 1 Capsule(s) PO BID and 2 at hs 07/06/2017 08/04/2017 Inactive Claritin 10 mg tablet RxNorm: 474423 TAKE ONE TABLET BY MOUTH DAILY 06/27/2017 11/17/2017 Inactive losartan 50 mg tablet RxNorm: 846298 TAKE ONE TABLET BY MOUTH DAILY 06/21/2017 12/17/2017 Inactive atenolol 100 mg tablet RxNorm: 767069 1 Tablet(s) PO daily TAKE ONE TABLET BY MOUTH DAILY 04/24/2017 10/20/2017 Inactive glucosamine 500 lg-dqboepqwu-beq no1 416.6 mg-C 20 mg-valerie- bosw tablet RxNorm: 3 Tablet(s) PO daily 04/21/2017 10/17/2017 Inactive glucosamine 500 gu-qnndarksh-oel no1 416.6 mg-C 20 mg-valerie- bosw tablet RxNorm: 3 Tablet(s) PO daily 04/19/2017 04/20/2017 Inactive glucosamine 500 yo-cwholynuv-slk no1 416.6 mg-C 20 mg-valerie- bosw tablet RxNorm: 3 Tablet(s) PO daily 04/19/2017 04/18/2017 Inactive levothyroxine 125 mcg tablet RxNorm: 225188 TAKE ONE TABLET BY MOUTH EVERY MONDAY , MONDAY, MONDAY AND SAT. 01/23/2017 Inactive spironolactone 25 mg tablet RxNorm: 966305 TAKE ONE TABLET BY MOUTH DAILY 12/20/2016 11/12/2017 Inactive meloxicam 15 mg tablet RxNorm: 881076 TAKE ONE TABLET BY MOUTH DAILY 12/20/2016 11/12/2017 Inactive lorazepam 0.5 mg tablet RxNorm: 100748 1 Tablet(s) PO QHS 11/2902/01/2018 Inactive citalopram 20 mg tablet RxNorm: 008790 1 Tablet(s) PO daily 12/17/2017 Inactive mupirocin 2 % topical cream RxNorm: 904794 APPLY 1/2 GRAM TOPICALLY TWO TIMES A DAY TO SKIN LESION ON BUTTOCK 11/09/2016 04/03/2017 Inactive levothyroxine 125 mcg tablet RxNorm: 647542 1 Tablet(s) PO daily on Mon, Mon, Mon , Sat and and 1/2 Tablet on Mon, Mon, Th10/31/2016 01/22/2017 Inactive fluticasone 50 mcg/actuation nasal spray,suspension RxNorm: 0182686 USE 1 SPRAY IN EACH NOSTRIL EVERY 12 HOURS NEEDED FOR ALLERGIES 201602/13/2017 Inactive Xanax 0.25 mg tablet RxNorm: 279694 1 Tablet(s) PO BID as needed 08/10/2016 04/03/2017 Inactive Acidophilus 500 million cell tablet RxNorm: 8693724 TAKE ONE TABLET BY MOUTH AT BEDTIME 08/02/2016 10/30/2016 Inactive Xanax 0.25 mg tablet RxNorm: 726134 1 Tablet(s) PO BID as needed 06/13/2016 08/09/2016 Inactive Claritin 10 mg tablet RxNorm: 855886 TAKE ONE TABLET BY MOUTH DAILY 06/13/2016 05/08/2017 Inactive fluticasone 50 mcg/actuation nasal spray,suspension RxNorm: 4691692 PLACE ONE SPRAY IN EACH NOSTRIL TWICE DAILY 04/21/2016 09/17/2016 Inactive atenolol 100 mg tablet RxNorm: 096732 Tablet(s) TAKE ONE TABLET BY MOUTH DAILY 04/11/2016 03/06/2017 Inactive Xanax 0.25 mg tablet RxNorm: 092521 1 Tablet(s) PO BID as needed 04/04/2016 06/12/2016 Inactive citalopram 40 mg tablet RxNorm: 401890 1 Tablet(s) PO daily 11/28/2016 Inactive Vitamin B-12 2,500 mcg sublingual tablet RxNorm: 210519 1 Tablet(s) SL daily 12/25/2015 04/03/2017 Inactive meloxicam 15 mg tablet RxNorm: 707035 TAKE ONE TABLET BY MOUTH DAILY 12/25/2015 04/22/2016 Inactive Request already responded to by other means (e.g. phone or fax) atorvastatin 20 mg tablet RxNorm: 690155 1 Tablet(s) PO TAKE ONE TABLET BY MOUTH AT BEDTIME. 12/14/2015 12/07/2016 Inactive meloxicam 15 mg tablet RxNorm: 966349 Tablet(s) TAKE ONE TABLET BY MOUTH ONCE DAILY. 12/14/2015 12/24/2015 Inactive Namenda XR 28 mg capsule sprinkle,extended release RxNorm: 996109 1 Capsule(s) PO daily 12/14/2015 04/03/2017 Inactive Vitamin B-12 2,500 mcg sublingual tablet RxNorm: 154945 1 Tablet(s) SL daily 12/14/2015 12/24/2015 Inactive spironolactone 25 mg tablet RxNorm: 005193 1 Tablet(s) PO daily 12/14/2015 12/07/2016 Inactive citalopram 20 mg tablet RxNorm: 968667 Tablet(s) TAKE ONE TABLET BY MOUTH ONCE DAILY. 12/14/2015 12/29/2015 Inactive atenolol 100 mg tablet RxNorm: 292048 TAKE ONE TABLET BY MOUTH DAILY 12/07/2015 04/04/2016 Inactive Acidophilus 500 million cell tablet RxNorm: 3543526 1 Tablet(s) PO QHS 12/07/2015 04/04/2016 Inactive refill acidophilus you have available levothyroxine 125 mcg tablet RxNorm: 451139 1 Tablet(s) PO daily on Mon, Wed, Fri , Sat and and 1/2 tablet on Mon, Tue, Th11/03/2015 10/30/2016 Inactive Voltaren 1 % topical gel RxNorm: 834525 TOP APPLY 2 GRAMS TO THE JOINT AREA ON HANDS, ELBOWS AND KNEES 3 TIMES DAILY. 09/02/2015 04/03/2017 Inactive fluticasone 50 mcg/actuation nasal spray,suspension RxNorm: 1577650 [place] USE 1 SPRAY IN EACH NOSTRIL TWICE DAILY. 08/19/2015 04/20/2016 Inactive enalapril maleate 10 mg tablet RxNorm: 019565 1/2 Tablet(s) PO BID 08/04/2015 04/03/2017 Inactive spironolactone 25 mg tablet RxNorm: 270437 1 Tablet(s) PO daily 08/04/2015 12/13/2015 Inactive Claritin 10 mg tablet RxNorm: 274456 Tablet(s) TAKE ONE TABLET BY MOUTH DAILY 06/19/2015 06/12/2016 Inactive levothyroxine 125 mcg tablet RxNorm: 764730 1 Tablet(s) PO daily 05/05/2015 11/02/2015 Inactive Claritin 10 mg tablet RxNorm: 938110 TAKE ONE TABLET BY MOUTH DAILY 03/27/2015 06/18/2015 Inactive Voltaren 1 % topical gel RxNorm: 990232 4 Gram(s) TOP to hands, knees and lower legs QID 02/03/2015 07/02/2015 Inactive Claritin 10 mg tablet RxNorm: 533175 1 Tablet(s) PO daily 201411/25/2014 Inactive DC keisha- NO PA Claritin 10 mg tablet RxNorm: 881123 1 Tablet(s) PO daily 201403/25/2015 Inactive DC keisha- NO PA fluticasone 50 mcg/actuation nasal spray,suspension RxNorm: 647848 [place] USE 1 SPRAY IN EACH NOSTRIL TWICE DAILY. 10/15/2014 08/18/2015 Inactive levothyroxine 150 mcg tablet RxNorm: 529358 1 Tablet(s) PO daily TAKE ONE TABLET BY MOUTH ONCE DAILY. 10/15/20142014 Inactive atorvastatin 20 mg tablet RxNorm: 510317 1 Tablet(s) PO TAKE ONE TABLET BY MOUTH AT BEDTIME. 09/23/2014 01/20/2015 Inactive atenolol 100 mg tablet RxNorm: 556463 TAKE ONE TABLET BY MOUTH ONCE DAILY. 09/09/2014 12/06/2015 Inactive Seroquel 25 mg tablet RxNorm: 307384 Tablet(s) TAKE 1/2 TABLET BY MOUTH ONE TIME DAILY. 08/12/2014 08/11/2014 Inactive atenolol 100 mg tablet RxNorm: 038384 TAKE ONE TABLET BY MOUTH ONCE DAILY. 08/12/2014 09/08/2014 Inactive Seroquel 25 mg tablet RxNorm: 148837 TAKE 1/2 TABLET BY MOUTH ONE TIME DAILY. 08/12/2014 08/03/2015 Inactive meloxicam 15 mg tablet RxNorm: 978042 TAKE ONE TABLET BY MOUTH ONCE DAILY. 07/28/2014 12/13/2015 Inactive Singulair 10 mg tablet RxNorm: 601574 Tablet(s) PO TAKE ONE TABLET BY MOUTH ONCE DAILY. 07/14/2014 01/09/2015 Inactive fluticasone 50 mcg/actuation nasal spray,suspension RxNorm: 163924 USE 1 SPRAY IN EACH NOSTRIL TWICE DAILY. 07/14/201410/14 Inactive fluticasone 50 mcg/actuation nasal spray,suspension RxNorm: 245600 1 [place] BID USE 1 SPRAY IN EACH NOSTRIL TWICE DAILY. 07/14/2014 07/13/2014 Inactive spironolactone 25 mg tablet RxNorm: 645039 TAKE ONE TABLET BY MOUTH ONCE DAILY. 07/08/2014 No Stop Date Active spironolactone 25 mg tablet RxNorm: 485542 Tablet(s) TAKE ONE TABLET BY MOUTH ONCE DAILY. 07/07/2014 07/07/2014 Inactive levothyroxine 175 mcg tablet RxNorm: 199378 1 Tablet(s) PO daily TAKE ONE TABLET BY MOUTH ONCE DAILY. 06/24/20142014 Inactive levothyroxine 175 mcg tablet RxNorm: 286646 Tablet(s) TAKE ONE TABLET BY MOUTH ONCE DAILY. 06/24/2014 06/24/2014 Inactive Vasotec 2.5 mg tablet RxNorm: 927200 2 Tablet(s) PO BID 201301/19/2015 Inactive Vasotec 2.5 mg tablet RxNorm: 481059 2 Tablet(s) PO BID 201307/18/2015 Inactive citalopram 20 mg tablet RxNorm: 255723 Tablet(s) TAKE ONE TABLET BY MOUTH ONCE DAILY. 06/23/2014 06/22/2014 Inactive citalopram 20 mg tablet RxNorm: 085485 TAKE ONE TABLET BY MOUTH ONCE DAILY. 06/23/2014 12/13/2015 Inactive hydrocortisone 1 % topical cream RxNorm: 300067 1 Application TOP BID x 1 week, then daily x1 week then as needed for hemorroids 06/05/2014 09/01/2015 Inactive Kenalog 40 mg/mL suspension for injection RxNorm: 3895267 1 Milliliter(s) Inj 06/05/2014 06/05/2014 Inactive cefdinir 300 mg capsule RxNorm: 265679 1 Capsule(s) PO BID 10/201306/14/2014 Inactive azithromycin 250 mg tablet RxNorm: 152683 1 Tablet(s) PO UD two pills on day #1, then one pill daily x 4 days hold celexa while taking this medication 06/05/2014 06/09/2014 Inactive ceftriaxone 500 mg solution for injection RxNorm: 902912 Inj 06/05/2014 Inactive Voltaren 1 % topical gel RxNorm: 886344 APPLY 2 GRAMS TO THE JOINT AREA ON HANDS, ELBOWS AND KNEES 4 TIMES DAILY. 05/26/2014 05/25/2014 Inactive Voltaren 1 % topical gel RxNorm: 095248 TOP APPLY 2 GRAMS TO THE JOINT AREA ON HANDS, ELBOWS AND KNEES 4 TIMES DAILY. 05/26/2014 09/01/2015 Inactive atorvastatin 20 mg tablet RxNorm: 832532 TAKE ONE TABLET BY MOUTH AT BEDTIME. 05/26/2014 05/25/2014 Inactive atorvastatin 20 mg tablet RxNorm: 374797 1 Tablet(s) PO TAKE ONE TABLET BY MOUTH AT BEDTIME. 05/26/2014 09/22/2014 Inactive atenolol 100 mg tablet RxNorm: 169567 TAKE ONE TABLET BY MOUTH ONCE DAILY. 05/12/2014 08/11/2014 Inactive Augmentin 500 mg-125 mg tablet RxNorm: 827512 1 Tablet(s) PO daily 05/08/2014 05/17/2014 Inactive nystatin-triamcinolone 100,000 unit/g-0.1 % topical cream RxNorm: 0063284 1 Application TOP daily APPLY A THIN LAYER TO THE AFFECTED AREA(S) ON BACK AND BUTTOCK THREE TIMES DAILY. 05/08/201407/2015 Inactive fluticasone 50 mcg/actuation nasal spray,suspension RxNorm: 653130 USE 1 SPRAY IN EACH NOSTRIL TWICE DAILY. 04/28/201407/13 Inactive meloxicam 15 mg tablet RxNorm: 670130 TAKE ONE TABLET BY MOUTH ONCE DAILY. 03/31/2014 07/27/2014 Inactive levothyroxine 175 mcg tablet RxNorm: 917588 TAKE ONE TABLET BY MOUTH ONCE DAILY. 03/24/2014 06/23/2014 Inactive Augmentin 500 mg-125 mg tablet RxNorm: 944193 1 Tablet(s) PO BID 03/04/2014 03/03/2014 Inactive have pt take probiotic bid while on abt Augmentin 500 mg-125 mg tablet RxNorm: 890967 1 Tablet(s) PO BID 03/04/2014 03/13/2014 Inactive have pt take probiotic bid while on abt Kenalog 40 mg/mL suspension for injection RxNorm: 9360257 Milliliter(s) Inj 02/27/2014 02/27/2014 Inactive Namenda XR 28 mg capsule sprinkle,extended release RxNorm: 216057 1 Capsule(s) PO daily 02/24/2014 02/18/2015 Inactive pt given a starter pack in the office, and will then need to start on the namenda XR 28mg dose. levothyroxine 175 mcg tablet RxNorm: 701690 TAKE ONE TABLET BY MOUTH ONCE DAILY. 02/24/2014 03/23/2014 Inactive meloxicam 15 mg tablet RxNorm: 331297 TAKE ONE TABLET BY MOUTH ONCE DAILY. 02/24/2014 03/30/2014 Inactive Seroquel 25 mg tablet RxNorm: 233535 TAKE 1/2 TABLET BY MOUTH ONE TIME DAILY. 02/21/2014 08/11/2014 Inactive atorvastatin 20 mg tablet RxNorm: 743922 TAKE ONE TABLET BY MOUTH AT BEDTIME. 01/27/2014 05/25/2014 Inactive nystatin-triamcinolone 100,000 unit/g-0.1 % topical cream RxNorm: 8014042 TOP APPLY A THIN LAYER TO THE AFFECTED AREA(S) ON BACK AND BUTTOCK THREE TIMES DAILY. 01/20/2014 05/07/2014 Inactive Singulair 10 mg tablet RxNorm: 806998 Tablet(s) PO TAKE ONE TABLET BY MOUTH ONCE DAILY. 01/17/2014 07/13/2014 Inactive atenolol 100 mg tablet RxNorm: 575153 TAKE ONE TABLET BY MOUTH ONCE DAILY. 01/14/2014 05/11/2014 Inactive citalopram 20 mg tablet RxNorm: 855369 TAKE ONE TABLET BY MOUTH ONCE DAILY. 01/06/2014 06/22/2014 Inactive spironolactone 25 mg tablet RxNorm: 220185 TAKE ONE TABLET BY MOUTH ONCE DAILY. 01/06/2014 07/06/2014 Inactive levothyroxine 175 mcg tablet RxNorm: 960252 TAKE ONE TABLET BY MOUTH ONCE DAILY. 12/23/2013 02/23/2014 Inactive Namenda XR 28 mg capsule rachnaink,ER 24hr RxNorm: 560927 1 Capsule(s) PO daily 12/09/2013 02/23/2014 Inactive pt given a starter pack in the office, and will then need to start on the namenda XR 28mg dose. spironolactone 25 mg tablet RxNorm: 230968 Tablet(s) PO TAKE ONE TABLET BY MOUTH ONCE DAILY. 12/09/2013 01/05/2014 Inactive citalopram 20 mg tablet RxNorm: 283440 Tablet(s) PO TAKE ONE TABLET BY MOUTH ONCE DAILY. 12/09/2013 01/05/2014 Inactive Seroquel 25 mg tablet RxNorm: 577499 Tablet(s) PO TAKE 1/2 TABLET BY MOUTH ONE TIME DAILY. 11/28/2013 02/20/2014 Inactive levothyroxine 175 mcg tablet RxNorm: 814284 Tablet(s) PO TAKE ONE TABLET BY MOUTH ONCE DAILY. 10/28/2013 12/22/2013 Inactive meloxicam 15 mg tablet RxNorm: 066258 Tablet(s) PO TAKE ONE TABLET BY MOUTH ONCE DAILY. 10/28/2013 02/23/2014 Inactive nystatin-triamcinolone 100,000 unit/g-0.1 % topical cream RxNorm: 0984411 cream TOP APPLY A THIN LAYER TO THE AFFECTED AREA(S) ON BACK AND BUTTOCK THREE TIMES DAILY. 10/14/2013 01/19/2014 Inactive nystatin-triamcinolone 100,000 unit/g-0.1 % topical cream RxNorm: 4885512 cream TOP APPLY A THIN LAYER TO THE AFFECTED AREA(S) ON BACK AND BUTTOCK THREE TIMES DAILY. 09/30/2013 10/13/2013 Inactive atenolol 100 mg tablet RxNorm: 089215 Tablet(s) PO TAKE ONE TABLET BY MOUTH ONCE DAILY. 09/16/2013 01/13/2014 Inactive spironolactone 25 mg tablet RxNorm: 267038 Tablet(s) PO TAKE ONE TABLET BY MOUTH ONCE DAILY. 09/09/2013 12/08/2013 Inactive nystatin-triamcinolone 100,000 unit/g-0.1 % topical cream RxNorm: 7515617 1 Application TOP BID apply thin layer to affected area three times daily on back and buttock 09/09/2013 09/29/2013 Inactive Voltaren 1 % topical gel RxNorm: 360775 gel TOP APPLY 2 GRAMS TO THE JOINT AREA ON HANDS, ELBOWS AND KNEES 4 TIMES DAILY. 09/02/2013 05/25/2014 Inactive Singulair 10 mg tablet RxNorm: 805955 Tablet(s) PO TAKE ONE TABLET BY MOUTH ONCE DAILY. 08/01/2013 01/16/2014 Inactive atorvastatin 20 mg tablet RxNorm: 264477 Tablet(s) PO TAKE ONE TABLET BY MOUTH AT BEDTIME. 08/01/2013 01/26/2014 Inactive meloxicam 15 mg tablet RxNorm: 674433 Tablet(s) PO TAKE ONE TABLET BY MOUTH ONCE DAILY. 07/01/2013 10/27/2013 Inactive betamethasone dipropionate 0.05 % topical ointment RxNorm: 143703 1 Application TOP TID apply the ointment to site on left buttock three times daily x 2 wks, then daily prn 06/17/2013 09/08/2013 Inactive amoxicillin 500 mg tablet RxNorm: 484089 1 Tablet(s) PO TID 06/06/2013 Inactive Kenalog 40 mg/mL suspension for injection RxNorm: 9737391 Milliliter(s) Inj 05/28/2013 05/28/2013 Inactive nystatin-triamcinolone 100,000 unit/g-0.1 % topical cream RxNorm: 5812548 1 Application TOP BID apply thin layer to affected area twice daily 05/28/2013 06/10/2013 Inactive Rocephin 500 mg solution for injection RxNorm: 755174 Inj 05/2805/28/2013 Inactive atenolol 100 mg tablet RxNorm: 205074 Tablet(s) PO TAKE ONE TABLET BY MOUTH ONCE DAILY. 05/20/2013 09/15/2013 Inactive Vasotec 2.5 mg tablet RxNorm: 490492 2 Tablet(s) PO BID 201206/06/2014 Inactive citalopram 20 mg tablet RxNorm: 938939 1 Tablet(s) PO daily 10/201212/01/2013 Inactive fluticasone 50 mcg/actuation nasal spray,suspension RxNorm: 548816 1 [place] NASAL BID 04/15/2013 04/09/2014 Inactive levothyroxine 175 mcg tablet RxNorm: 021236 1 Tablet(s) PO daily 03/25/2013 09/20/2013 Inactive levothyroxine 175 mcg tablet RxNorm: 275191 1 Tablet(s) PO daily 03/18/2013 03/24/2013 Inactive levothyroxine 175 mcg tablet RxNorm: 190871 1 Tablet(s) PO daily 03/14/2013 03/17/2013 Inactive Fosamax 70 mg tablet RxNorm: 355850 1 Tablet(s) PO QW 201206/16/2013 Inactive levothyroxine 150 mcg tablet RxNorm: 975177 1 Tablet(s) PO daily 01/28/2013 01/27/2013 Inactive levothyroxine 150 mcg tablet RxNorm: 009000 1 Tablet(s) PO daily 01/28/2013 03/13/2013 Inactive Forteo 20 mcg/dose (600 mcg/2.4 mL) Sub-Q Pen Injector RxNorm: 1287691 1 injection SQ daily 01/22/2013 02/11/2013 Inactive Vasotec 2.5 mg tablet RxNorm: 937891 2 Tablet(s) PO BID 201205/12/2013 Inactive Vasotec 2.5 mg tablet RxNorm: 230981 2 Tablet(s) PO BID 201211/18/2012 Inactive Seroquel 25 mg tablet RxNorm: 780418 1/2 Tablet(s) PO daily 11/22/2013 Inactive atenolol 100 mg tablet RxNorm: 188471 1 Tablet(s) PO daily 05/19/2013 Inactive citalopram 20 mg tablet RxNorm: 291472 1 Tablet(s) PO daily 01/201305/05/2013 Inactive Synthroid 150 mcg tablet RxNorm: 212406 1 Tablet(s) PO daily 01/15/2013 Inactive Synthroid 150 mcg tablet RxNorm: 666621 1 Tablet(s) PO daily 09/17/2012 Inactive Astepro 0.15 % (205.5 mcg) Nasal [place] RxNorm: 683034 1 [place] NASAL BID PRN 09/12/2012 09/08/2013 Inactive Pt's daughter will call if they want it filled in the next 1-2 weeks. spironolactone 25 mg tablet RxNorm: 847474 1 Tablet(s) PO daily 09/12/2012 09/06/2013 Inactive Vasotec 2.5 mg tablet RxNorm: 532453 1 Tablet(s) PO BID 201211/13/2012 Inactive Voltaren 1 % topical gel RxNorm: 386652 2 Gram(s) TOP QID use on JOINTS in hands, elbows, knee QID 08/29/2012 02/24/2013 Inactive nystatin 100,000 unit/mL Oral Susp RxNorm: 033404 4 Milliliter(s) BUCC QID 4 mL to mouth four times daily x 10 days. 05/31/2012 09/08/2013 Inactive Synthroid 125 mcg tablet RxNorm: 507058 1 Tablet(s) PO daily may have #90 if cheaper 05/31/2012 09/17/2012 Inactive Voltaren 1 % Topical Gel RxNorm: 267282 2 Gram(s) TOP QID 05/2308/28/2012 Inactive Kenalog 40 mg/mL Susp for Injection RxNorm: 4174692 Milliliter(s) Inj 05/01/2012 05/01/2012 Inactive amoxicillin 500 mg tablet RxNorm: 801851 1 Tablet(s) PO TID 05/14/2012 Inactive Rocephin 500 mg Solution for Injection RxNorm: 125090 Inj 05/0105/01/2012 Inactive Seroquel 25 mg tablet RxNorm: 052061 1/2 Tablet(s) PO daily 03/201210/28/2012 Inactive Seroquel 25 mg tablet RxNorm: 170667 1/2 Tablet(s) PO daily 03/201204/09/2012 Inactive Keisha 180 mg tablet RxNorm: 001227 1 Tablet(s) PO daily 201107/25/2012 Inactive Keisha 180 mg tablet RxNorm: 615202 1 Tablet(s) PO daily 201103/27/2012 Inactive fluticasone 50 mcg/actuation Nasal [place], Susp RxNorm: 3852208 1 [place] NASAL BID 03/28/2012 03/22/2013 Inactive Pennsaid 1.5 % Topical Drops RxNorm: 862280 20 Drop(s) TOP QID 03/27/2012 04/20/2013 Inactive Voltaren 1 % Topical Gel RxNorm: 661178 2 Gram(s) TOP QID 03/2603/26/2012 Inactive pt wants to go back to voltaren gel after finishes the pennsaid she has now. please put these refills on file for that time citalopram 20 mg tablet RxNorm: 622798 1 Tablet(s) PO daily 03/14/2012 Inactive citalopram 20 mg tablet RxNorm: 032525 1 Tablet(s) PO daily 10/07/2012 Inactive Voltaren 1 % Topical Gel RxNorm: 576388 2 Gram(s) TOP QID 03/0903/25/2012 Inactive Voltaren 1 % Topical Gel RxNorm: 649184 2 Gram(s) TOP QID 03/0903/08/2012 Inactive Synthroid 125 mcg tablet RxNorm: 170708 1 Tablet(s) PO daily may have #90 if cheaper 03/02/2012 05/30/2012 Inactive Pennsaid 1.5 % Topical Drops RxNorm: 961776 20 Drop(s) TOP QID 02/29/2012 02/28/2012 Inactive Pennsaid 1.5 % Topical Drops RxNorm: 865083 20 Drop(s) TOP QID 02/29/2012 03/21/2012 Inactive Vasotec 2.5 mg tablet RxNorm: 075812 1 Tablet(s) PO BID 201102/27/2012 Inactive Vasotec 2.5 mg tablet RxNorm: 865967 1 Tablet(s) PO BID 201108/25/2012 Inactive Singulair 10 mg tablet RxNorm: 598234 1 Tablet(s) PO daily 02/13/2013 Inactive spironolactone 25 mg tablet RxNorm: 767605 1 Tablet(s) PO daily 02/20/2012 09/11/2012 Inactive atorvastatin 20 mg tablet RxNorm: 363830 1 Tablet(s) PO QPM 02/13/2013 Inactive doxepin 75 mg capsule RxNorm: 9593850 1 Capsule(s) PO QHS 201103/22/2012 Inactive meloxicam 15 mg tablet RxNorm: 305971 1 Tablet(s) PO daily 02/13/2013 Inactive fluticasone 50 mcg/actuation Nasal [place], Susp RxNorm: 3517165 1 [place] NASAL BID 02/20/2012 03/27/2012 Inactive levothyroxine 100 mcg tablet RxNorm: 020876 1 Tablet(s) PO daily 02/20/2012 03/01/2012 Inactive doxepin 25 mg capsule RxNorm: 0017324 1 Capsule(s) PO QPM 201103/22/2012 Inactive atenolol 100 mg tablet RxNorm: 473886 1 Tablet(s) PO daily 10/21/2012 Inactive melatonin ER 10 mg tablet,extended release RxNorm: 7684451 1 Tablet(s) PO QHS No Start Date Active Tylenol Arthritis Pain 650 mg tablet,extended release RxNorm: 6953905 1 Tablet(s) PO Q8 as needed for pain No Start Date Active Aricept 5 mg tablet RxNorm: 754448 1 Tablet(s) PO QHS No Start Date Active Zyprexa 5 mg tablet RxNorm: 337758 1 Tablet(s) PO BID No Start Date Active Ativan 0.5 mg tablet RxNorm: 647490 1 tab daily and 1 tab q 6 hours prn Tablet(s) PO No Start Date Active vitamin A and D topical ointment RxNorm: 426803 1 Application to left buttock TOP QHS No Start Date Active mupirocin 2 % topical cream RxNorm: 269834 APPLY 1/2 GRAM TOPICALLY TWO TIMES A DAY TO SKIN LESION ON BUTTOCK No Start Date 11/08/2016 Inactive Synthroid 125 mcg tablet RxNorm: 236760 1 Tablet(s) PO daily No Start Date 03/01/2012 Inactive Depakote Sprinkles 125 mg capsule,delayed release RxNorm: 0085581 1 Capsule(s) PO TID No Start Date 07/05/2017 Inactive ranitidine 150 mg tablet RxNorm: 738118 1 Tablet(s) PO QHS No Start Date 01/07/2018 Inactive Exelon Patch 4.6 mg/24 hr transdermal RxNorm: 723466 1 Patch TD daily No Start Date 04/03/2017 Inactive Namenda XR 7 mg-14 mg-21 mg-28 mg capsule,sprinkle,ER 24hr, dose pack RxNorm: 409827 Capsule(s) PO No Start Date 12/30/2013 Inactive Xanax 0.25 mg tablet RxNorm: 029569 1 Tablet(s) PO BID as needed No Start Date 04/03/2016 Inactive lorazepam 0.5 mg tablet RxNorm: 964153 1/2 Tablet(s) PO QHS No Start Date 11/28/2016 Inactive Plavix 75 mg tablet RxNorm: 419569 1 Tablet(s) PO daily No Start Date 11/19/2017 Inactive memantine 10 mg tablet RxNorm: 523284 1 Tablet(s) PO BID No Start Date 10/29/2017 Inactive glucosamine-chondroitin 1,500 mg -1,200 mg/30 mL oral liquid RxNorm: 1 PO daily No Start Date 09/02/2015 Inactive Acidophilus 500 million cell tablet RxNorm: 9089136 1 Tablet(s) PO QHS No Start Date 12/06/2015 Inactive Vitamin B-12 2,500 mcg sublingual tablet RxNorm: 953285 1 Tablet(s) SL daily No Start Date 12/13/2015 Inactive gabapentin 100 mg capsule RxNorm: 281028 1 Capsule(s) PO BID No Start Date 04/29/2018 Inactive Mobic 15 mg tablet RxNorm: 957106 1 Tablet(s) PO daily No Start Date 04/03/2017 Inactive Exelon Patch 9.5 mg/24 hr transdermal RxNorm: 374666 1 Patch TD daily No Start Date 02/01/2018 Inactive Risperdal 0.5 mg tablet RxNorm: 999696 1 Tablet(s) PO TID No Start Date 02/12/2018 Inactive Voltaren 1 % topical gel RxNorm: 524715 1 Gram(s) TOP TID No Start Date 09/01/2015 Inactive Vitamin D3 2,000 unit tablet RxNorm: 731405 2 Tablet(s) PO daily No Start Date 11/05/2017 Inactive Fosamax 70 mg tablet RxNorm: 712760 1 Tablet(s) PO QW No Start Date 02/11/2013 Inactive Aspirin Low Dose 81 mg tablet,delayed release RxNorm: 751650 1 Tablet(s) PO daily No Start Date 07/05/2017 Inactive losartan 50 mg tablet RxNorm: 206407 1 Tablet(s) PO daily No Start Date 06/20/2017 Inactive loratadine 10 mg tablet RxNorm: 623313 1 Tablet(s) PO daily No Start Date 03/01/2018 Inactive glucosamine 116 mg-chondroitin 100 mg-dietary supplement # 25 capsule RxNorm: 3 Capsule(s) PO daily No Start Date 2017 Inactive Medication Administered Medication Codes Instructions Start Date Status ceftriaxone 500 mg solution for injection RxNorm: 500257 06/05/2014 No longer Active Kenalog 40 mg/mL suspension for injection RxNorm: 0242430 1Milliliter 06/05/2014 No longer Active Kenalog 40 mg/mL suspension for injection RxNorm: 5754291 Milliliter 02/27/2014 No longer Active Kenalog 40 mg/mL suspension for injection RxNorm: 6513449 Millil[place] 05/28/2013 No longer Active Rocephin 500 mg solution for injection RxNorm: 803554 05/28/2013 No longer Active Kenalog 40 mg/mL Susp for Injection RxNorm: 5949567 Milliliter 05/01/2012 No longer Active Rocephin 500 mg Solution for Injection RxNorm: 048392 05/01/2012 No longer Active Immunizations Vaccine Codes Date Status Influenza CVX: 141 03/22/2012 completed Tetanus, Diptheria, Pertussis CVX: 113 completed Tetanus/Diptheria CVX: 113 03/22/2011 completed Assessments Condition Codes Effective Dates Disorientation, unspecified ICD-10: R41.0 ICD-9: 298.9 05/01/2018 Fever, unspecified ICD-10: R50.9 ICD-9: 780.60 05/01/2018 Generalized anxiety disorder ICD-10: F41.1 ICD-9: 300.02 03/29/2018 Essential (primary) hypertension ICD-10: I10 ICD-9: 401.1 03/29/2018 Atrophy of thyroid (acquired) ICD-10: E03.4 ICD-9: 244.8 03/01/2018 Mixed hyperlipidemia ICD-10: E78.2 ICD-9: 272.4 10/03/2017 Other dysphagia ICD-10: R13.19 ICD-9: 787.29 09/19/2017 Glossodynia ICD-10: K14.6 ICD-9: 529.6 07/06/2017 Diseases of lips ICD-10: K13.0 ICD-9: 528.5 04/04/2017 Disturbances of salivary secretion ICD-10: K11.7 ICD-9: 527.7 04/04/2017 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 ICD-9: 435.2 11/02/2016 Essential (primary) hypertension ICD-10: I10 ICD-9: 401.9 08/30/2016 Hypothyroidism, unspecified ICD-10: E03.9 ICD-9: 244.9 02/02/2016 Allergic rhinitis due to pollen ICD-10: J30.1 ICD-9: 477.9 11/03/2015 Polyosteoarthritis, unspecified ICD-10: M15.9 ICD-9: 715.00 09/02/2015 Cough ICD-10: R05 ICD-9: 786.2 08/04/2015 Anxiety disorder, unspecified ICD-10: F41.9 ICD-9: 311 05/05/2015 Mastodynia ICD-10: N64.4 ICD-9: 611.71 04/15/2015 HYPOTHYROIDISM ICD-9: 244.9 02/03/2015 Alzheimer's dementia ICD-9: 331.0 2014 ESSENTIAL HYPERTENSION ICD-9: 401.9 02/03 HYPERLIPIDEMIA ICD-9: 272.4 12/02/2014 GENERALIZED ANXIETY DISEASE ICD-9: 300.02 12/02/2014 ALLERGIC RHINITIS ICD-9: 477.9 2014 Weakness ICD-9: 780.79 10/14/2014 Loose stools ICD-9: 787.7 10/14/2014 GENERAL OSTEOARTHROSIS ICD-9: 715.00 Shoulder pain ICD-9: 719.41 07/17/2014 Foot pain, left ICD-9: 729.5 07/17/2014 ACUTE BRONCHITIS ICD-9: 466.0 06/05/2014 ACUTE SINUSITIS ICD-9: 461.9 05/08/2014 Rash ICD-9: 782.1 05/08/2014 Open wound of arm ICD-9: 884.0 2013 Weight loss ICD-9: 783.21 02/27/2014 Gait instability ICD-9: 781.2 12/09/2013 DEPRESSIVE DISORDER NEC ICD-9: 311 2013 Encounter for long-term (current) use of other medications ICD-9: V58.69 09/09/2013 Nose irritation ICD-9: 478.19 06/17/2013 Oral dryness ICD-9: 527.7 06/17/2013 AFTRCE TRAUM FX BONE NEC ICD-9: V54.19 Osteoporosis ICD-9: 733.00 01/22/2013 Oral candidiasis ICD-9: 112.0 05/31/2012 INSOMNIA NOS ICD-9: 780.52 05/31/2012 Sore throat ICD-9: 462 05/01/2012 Maxillary sinusitis, acute ICD-9: 461.0 05/01/2012 Cough ICD-9: 786.2 05/01/2012 VACCIN FOR INFLUENZA ICD-9: V04.81 2011 Reason For Visit Reason For Visit Effective Dates Notes hypertension 03/29/2018 hypertension 03/01/2018 hypertension 02/13/2018 hypertension 01/15/2018 hypertension 10/03/2017 dysphagia 09/19/2017 hypertension 07/06/2017 hypertension 04/04/2017 hypertension 02/28/2017 hypertension 11/29/2016 hypertension 11/02/2016 hypertension 08/30/2016 nose et tongue as well hypertension 05/03/2016 hypertension 02/02/2016 hypertension 12/30/2015 hypertension 11/03/2015 hypertension 09/02/2015 nasal allergies 08/04/2015 joint complaint 05/05/2015 flare up of rash 04/15/2015 hypertension 02/03/2015 nasal allergies 12/02/2014 constipation 10/14/2014 foot pain 07/17/2014 LEFT- PT HAS HAD PAIN SINCE FX HEALED. FX WAS OCTOBER 2013 sinus congestion 06/05/2014 left buttock sinus congestion 05/08/2014 left buttock arm pain 04/17/2014 right hypertension 02/27/2014 right hand hypertension 12/31/2013 hypertension 12/09/2013 neck pain 09/09/2013 sinus congestion 06/17/2013 cough 05/28/2013 bone fracture 03/12/2013 bone fracture 01/22/2013 hypertension 11/14/2012 hypertension 09/12/2012 rash 05/31/2012 sinus congestion 05/01/2012 hypertension 03/22/2012 hypertension 02/20/2012 Results Observation Observation Code Item Item Code Result Date Culture Urine [id number] URINE CULTURE SEE NOTES 04/16/2018 Urine Culture Ucult Preliminary NO Growth Day 1 04/13/2018 Urine Culture Ucult Complete Growth of aerobe sent to ref lab 04/13/2018 Urinalysis Ord28 U-Color Yellow 04/11/2018 Urinalysis Ord28 U-Clarity Slightly Cloudy 04/11/2018 Urinalysis Ord28 U-Gluc Negative 04/11/2018 Urinalysis Ord28 U-Bili Negative 04/11/2018 Urinalysis Ord28 U-Ketone Trace 04/11/2018 Urinalysis Ord28 U-SG 1.025 04/11/2018 Urinalysis Ord28 U-Blood Negative 04/11/2018 Urinalysis Ord28 U-pH 5.0 04/11/2018 Urinalysis Ord28 U-Protein Negative 04/11/2018 Urinalysis Ord28 U-Urobilin 0.2 E.U./dL E.U./dL 04/11/2018 Urinalysis Ord28 U-Nitrites Negative 04/11/2018 Urinalysis Ord28 U-Leuk Trace 04/11/2018 Urinalysis Ord28 U-Bact TRACE 04/11/2018 Urinalysis Ord28 U-Squamous Epi 5-10 per/HPF 04/11/2018 Urinalysis Ord28 U-Crystal None per/HPF 04/11/2018 Urinalysis Ord28 U-Mucus None 04/11/2018 Urinalysis Ord28 U-Renal tubular epi None 04/11/2018 Urinalysis Ord28 U-RBC None per/HPF 04/11/2018 Urinalysis Ord28 U-Transitional epi None per/HPF 04/11/2018 Urinalysis Ord28 U-WBC 3-5 per/HPF 04/11/2018 Urinalysis Ord28 U-Cast None per/HPF 04/11/2018 Urinalysis Ord28 U-VOL VOLUME SUFFICIENT (10mL) 04/11/2018 Urinalysis Ord28 U-Com Urine saved if culture needed (specimen acceptable for 48 hours from collection if refrigerated) 04/11/2018 Urinalysis Ord28 U-Yeast NEGATIVE 04/11/2018 Valproic Acid Bii433 VALPROIC 41.0 ug/ml 04/11/2018 Thyroid Ord1 TSH (3rd IS) 0.78 uIU/mL 03/27/2018 Thyroid Ord1 Free T3 2.79 pg/ml 03/27/2018 Thyroid Ord1 FREE T4 1.66 ng/dL 03/27/2018 Lipid Ord30 CHOL 107 mg/dL 03/27/2018 Lipid Ord30 HDL 33.0 mg/dl 03/27/2018 Lipid Ord30 TRIG 112 mg/dL 03/27/2018 Lipid Ord30 LDL 52 mg/dL 03/27/2018 Lipid Ord30 C/HDL 3.2 Ratio 03/27/2018 Comp Metabolic Zwx320 NA 137 mEq/L 03/27/2018 Comp Metabolic Ial260 K 5.1 mEq/L 03/27/2018 Comp Metabolic Bmw273 CL 100 mEq/L 03/27/2018 Comp Metabolic Hzp018 CO2 28.0 mEq/L 03/27/2018 Comp Metabolic Caa755 ANION GAP 14 03/27/2018 Comp Metabolic Jjz322 GLUCOSE 91 mg/dL 03/27/2018 Comp Metabolic Rrt625 Creat 1.0 mg/dL 03/27/2018 Comp Metabolic Ntp726 eGFR 56 ml/min/1.73m2 03/27/2018 Comp Metabolic Rry329 BUN 22 mg/dL 03/27/2018 Comp Metabolic Rkw132 B/C Ratio 22.0 Ratio 03/27/2018 Comp Metabolic Xae709 CALCIUM 9.2 mg/dL 03/27/2018 Comp Metabolic Xye950 ALK PHOS 83 U/L 03/27/2018 Comp Metabolic Yee350 AST(SGOT) 11 U/L 03/27/2018 Comp Metabolic Xsi222 ALT(SGPT) 8 U/L 03/27/2018 Comp Metabolic Iqc888 BILI T 0.4 mg/dL 03/27/2018 Comp Metabolic Mmi355 ALBUMIN 3.5 g/dL 03/27/2018 Comp Metabolic Cvn269 TPRO 6.2 g/dL 03/27/2018 Comp Metabolic Klp058 GLOB 2.7 g/dL 03/27/2018 Comp Metabolic Wnv138 A/G Ratio 1.3 Ratio 03/27/2018 Comp Metabolic Cqs186 Osmo 277 mOsmo 03/27/2018 Comp Metabolic Ylm710 NA 132 mEq/L 03/06/2018 Comp Metabolic Wvb304 K 4.5 mEq/L 03/06/2018 Comp Metabolic Gkj421 CL 95 mEq/L 03/06/2018 Comp Metabolic Jhc971 CO2 27.0 mEq/L 03/06/2018 Comp Metabolic Xuo009 ANION GAP 15 03/06/2018 Comp Metabolic Jlo166 GLUCOSE 186 mg/dL 03/06/2018 Comp Metabolic Scv873 Creat 1.1 mg/dL 03/06/2018 Comp Metabolic Ykr948 eGFR 52 ml/min/1.73m2 03/06/2018 Comp Metabolic Kbb550 BUN 20 mg/dL 03/06/2018 Comp Metabolic Htz315 B/C Ratio 18.7 Ratio 03/06/2018 Comp Metabolic Uiu508 CALCIUM 9.1 mg/dL 03/06/2018 Comp Metabolic Ect487 ALK PHOS 89 U/L 03/06/2018 Comp Metabolic Gqg750 AST(SGOT) 13 U/L 03/06/2018 Comp Metabolic Vln363 ALT(SGPT) 9 U/L 03/06/2018 Comp Metabolic Lua290 BILI T 0.5 mg/dL 03/06/2018 Comp Metabolic Ugu953 ALBUMIN 3.9 g/dL 03/06/2018 Comp Metabolic Hew272 TPRO 6.3 g/dL 03/06/2018 Comp Metabolic Fnj367 GLOB 2.4 g/dL 03/06/2018 Comp Metabolic Nfg674 A/G Ratio 1.6 Ratio 03/06/2018 Comp Metabolic Lth942 Osmo 272 mOsmo 03/06/2018 Valproic Acid Vsk967 VALPROIC 31.0 ug/ml 03/06/2018 Tsh Ord6 TSH (3rd IS) 0.08 uIU/mL 01/08/2018 Free T4 Kiq336 FREE T4 1.42 ng/dL 01/08/2018 T4 Ord4 T4 12.4 ug/dL 01/08/2018 Tsh Ord6 TSH (3rd IS) 7.31 uIU/mL 10/03/2017 Comp Metabolic Sbi881 NA 132 mEq/L 10/03/2017 Comp Metabolic Zaw228 K 4.7 mEq/L 10/03/2017 Comp Metabolic Sgl335 CL 96 mEq/L 10/03/2017 Comp Metabolic Uwd649 CO2 30.0 mEq/L 10/03/2017 Comp Metabolic Amb889 ANION GAP 11 10/03/2017 Comp Metabolic Xus149 GLUCOSE 101 mg/dL 10/03/2017 Comp Metabolic Trj688 Creat 1.2 mg/dL 10/03/2017 Comp Metabolic Alg031 eGFR 48 ml/min/1.73m2 10/03/2017 Comp Metabolic Xjk271 BUN 27 mg/dL 10/03/2017 Comp Metabolic Qeb554 B/C Ratio 23.5 Ratio 10/03/2017 Comp Metabolic Naz152 CALCIUM 9.0 mg/dL 10/03/2017 Comp Metabolic Hus586 ALK PHOS 70 U/L 10/03/2017 Comp Metabolic Aqf900 AST(SGOT) 12 U/L 10/03/2017 Comp Metabolic Ifs904 ALT(SGPT) 8 U/L 10/03/2017 Comp Metabolic Yre204 BILI T 0.4 mg/dL 10/03/2017 Comp Metabolic Upo455 ALBUMIN 3.8 g/dL 10/03/2017 Comp Metabolic Qep583 TPRO 5.9 g/dL 10/03/2017 Comp Metabolic Iyw758 GLOB 2.1 g/dL 10/03/2017 Comp Metabolic Amg681 A/G Ratio 1.8 Ratio 10/03/2017 Comp Metabolic Oht247 Osmo 270 mOsmo 10/03/2017 Free T4 Mby055 FREE T4 0.71 ng/dL 10/03/2017 Cbc With Differential Ord2 WBC 7.20 K/ul 10/03/2017 Cbc With Differential Ord2 RBC 3.22 M/ul 10/03/2017 Cbc With Differential Ord2 HGB 10.7 g/dl 10/03/2017 Cbc With Differential Ord2 Neut% 73.0 % 10/03/2017 Cbc With Differential Ord2 HCT 32.7 % 10/03/2017 Cbc With Differential Ord2 MCV 101.6 fl 10/03/2017 Cbc With Differential Ord2 Lymph% 16.3 % 10/03/2017 Cbc With Differential Ord2 [place]% 9.4 % 10/03/2017 Cbc With Differential Ord2 MCH 33.2 pg 10/03/2017 Cbc With Differential Ord2 MCHC 32.7 pg 10/03/2017 Cbc With Differential Ord2 Eos% 1.0 % 10/03/2017 Cbc With Differential Ord2 Baso% 0.3 % 10/03/2017 Cbc With Differential Ord2 PLT 229 K/ul 10/03/2017 Cbc With Differential Ord2 RDW 13.0 % 10/03/2017 Cbc With Differential Ord2 Neut ABS# 5.26 K/ul 10/03/2017 Cbc With Differential Ord2 Lymph ABS# 1.17 K/ul 10/03/2017 Cbc With Differential Ord2 [place] ABS# 0.7 K/ul 10/03/2017 Cbc With Differential Ord2 Eos ABS# 0.1 K/ul 10/03/2017 Cbc With Differential Ord2 Baso ABS# 0.0 K/ul 10/03/2017 Lipid Ord30 CHOL 108 mg/dL 10/03/2017 Lipid Ord30 HDL 50.0 mg/dl 10/03/2017 Lipid Ord30 TRIG 140 mg/dL 10/03/2017 Lipid Ord30 LDL 30 mg/dL 10/03/2017 Lipid Ord30 C/HDL 2.2 Ratio 10/03/2017 Valproic Acid Auv541 VALPROIC 39.0 ug/ml 07/24/2017 Free T4 Jvw520 FREE T4 1.28 ng/dL 05/03/2016 Cbc With Differential Ord2 WBC 5.32 K/ul 05/03/2016 Cbc With Differential Ord2 RBC 3.34 M/ul 05/03/2016 Cbc With Differential Ord2 HGB 11.0 g/dl 05/03/2016 Cbc With Differential Ord2 Neut% 61.5 % 05/03/2016 Cbc With Differential Ord2 HCT 33.5 % 05/03/2016 Cbc With Differential Ord2 Lymph% 24.4 % 05/03/2016 Cbc With Differential Ord2 MCV 100.3 fl 05/03/2016 Cbc With Differential Ord2 [place]% 10.3 % 05/03/2016 Cbc With Differential Ord2 MCH 32.9 pg 05/03/2016 Cbc With Differential Ord2 Eos% 3.4 % 05/03/2016 Cbc With Differential Ord2 MCHC 32.8 pg 05/03/2016 Cbc With Differential Ord2 Baso% 0.4 % 05/03/2016 Cbc With Differential Ord2 PLT 216 K/ul 05/03/2016 Cbc With Differential Ord2 Neut ABS# 3.27 K/ul 05/03/2016 Cbc With Differential Ord2 RDW 13.2 % 05/03/2016 Cbc With Differential Ord2 Lymph ABS# 1.30 K/ul 05/03/2016 Cbc With Differential Ord2 [place] ABS# 0.6 K/ul 05/03/2016 Cbc With Differential Ord2 Eos ABS# 0.2 K/ul 05/03/2016 Cbc With Differential Ord2 Baso ABS# 0.0 K/ul 05/03/2016 Comp Metabolic Ylw556 NA 137 mEq/L 05/03/2016 Comp Metabolic Yvr411 K 4.8 mEq/L 05/03/2016 Comp Metabolic Vxp271 CL 104 mEq/L 05/03/2016 Comp Metabolic Ysf971 CO2 27.0 mEq/L 05/03/2016 Comp Metabolic Efa946 ANION GAP 11 05/03/2016 Comp Metabolic Xde532 GLUCOSE 100 mg/dL 05/03/2016 Comp Metabolic Eoe096 Creat 1.1 mg/dL 05/03/2016 Comp Metabolic Gxc848 eGFR 53 ml/min/1.73m2 05/03/2016 Comp Metabolic Jfd562 BUN 31 mg/dL 05/03/2016 Comp Metabolic Mvy905 B/C Ratio 29.2 Ratio 05/03/2016 Comp Metabolic Dxe092 CALCIUM 9.1 mg/dL 05/03/2016 Comp Metabolic Huy241 ALK PHOS 93 U/L 05/03/2016 Comp Metabolic Suh977 AST(SGOT) 15 U/L 05/03/2016 Comp Metabolic Qaq061 ALT(SGPT) 11 U/L 05/03/2016 Comp Metabolic Ovn640 BILI T 0.5 mg/dL 05/03/2016 Comp Metabolic Gcc346 ALBUMIN 3.9 g/dL 05/03/2016 Comp Metabolic Brz329 TPRO 6.2 g/dL 05/03/2016 Comp Metabolic Tok379 GLOB 2.3 g/dL 05/03/2016 Comp Metabolic Yue875 A/G Ratio 1.6 Ratio 05/03/2016 Comp Metabolic Kpq322 Osmo 280 mOsmo 05/03/2016 Tsh Ord6 hTSH II 0.03 uIU/mL 05/03/2016 Free T4 Dyb989 FREE T4 1.44 ng/dL 12/30/2015 Tsh Ord6 hTSH II 0.06 uIU/mL 12/30/2015 Tsh Ord6 hTSH II 0.03 uIU/mL 09/03/2015 Cbc With Differential Ord2 WBC 4.51 K/ul 09/03/2015 Cbc With Differential Ord2 RBC 3.44 M/ul 09/03/2015 Cbc With Differential Ord2 HGB 10.9 g/dl 09/03/2015 Cbc With Differential Ord2 HCT 33.3 % 09/03/2015 Cbc With Differential Ord2 Neut% 60.3 % 09/03/2015 Cbc With Differential Ord2 MCV 96.8 fl 09/03/2015 Cbc With Differential Ord2 Lymph% 23.5 % 09/03/2015 Cbc With Differential Ord2 MCH 31.7 pg 09/03/2015 Cbc With Differential Ord2 [place]% 11.5 % 09/03/2015 Cbc With Differential Ord2 Eos% 4.0 % 09/03/2015 Cbc With Differential Ord2 MCHC 32.7 pg 09/03/2015 Cbc With Differential Ord2 Baso% 0.7 % 09/03/2015 Cbc With Differential Ord2 PLT 209 K/ul 09/03/2015 Cbc With Differential Ord2 RDW 13.3 % 09/03/2015 Cbc With Differential Ord2 Neut ABS# 2.72 K/ul 09/03/2015 Cbc With Differential Ord2 Lymph ABS# 1.06 K/ul 09/03/2015 Cbc With Differential Ord2 [place] ABS# 0.5 K/ul 09/03/2015 Cbc With Differential Ord2 Eos ABS# 0.2 K/ul 09/03/2015 Cbc With Differential Ord2 Baso ABS# 0.0 K/ul 09/03/2015 Cbc With Differential Ord2 New Analyzer Notice Please note new ref ranges starting 07-15-2015 due to implemntation of new five part differential hematolgy analyzer. 09/03/2015 Lipid Ord30 CHOL 106 mg/dL 09/03/2015 Lipid Ord30 HDL 45.0 mg/dl 09/03/2015 Lipid Ord30 TRIG 84 mg/dL 09/03/2015 Lipid Ord30 LDL 44 mg/dL 09/03/2015 Lipid Ord30 C/HDL 2.4 Ratio 09/03/2015 Comp Metabolic Vzp013 NA 138 mEq/L 09/03/2015 Comp Metabolic Myw918 K 4.1 mEq/L 09/03/2015 Comp Metabolic Dwu149 CL 104 mEq/L 09/03/2015 Comp Metabolic Yzu120 CO2 27.0 mEq/L 09/03/2015 Comp Metabolic Rqu930 ANION GAP 11 09/03/2015 Comp Metabolic Czn616 GLUCOSE 108 mg/dL 09/03/2015 Comp Metabolic Mdz232 Creat 0.9 mg/dL 09/03/2015 Comp Metabolic Xkk648 eGFR 62 ml/min/1.73m2 09/03/2015 Comp Metabolic Gvm361 BUN 33 mg/dL 09/03/2015 Comp Metabolic Njd889 B/C Ratio 35.5 Ratio 09/03/2015 Comp Metabolic Zxo773 CALCIUM 9.5 mg/dL 09/03/2015 Comp Metabolic Frr337 ALK PHOS 87 U/L 09/03/2015 Comp Metabolic Dfj405 AST(SGOT) 14 U/L 09/03/2015 Comp Metabolic Xre945 ALT(SGPT) 10 U/L 09/03/2015 Comp Metabolic Lro706 BILI T 0.8 mg/dL 09/03/2015 Comp Metabolic Yeq395 ALBUMIN 4.0 g/dL 09/03/2015 Comp Metabolic Mvh665 TPRO 6.2 g/dL 09/03/2015 Comp Metabolic Lsa847 GLOB 2.2 g/dL 09/03/2015 Comp Metabolic Ejv688 A/G Ratio 1.8 Ratio 09/03/2015 Comp Metabolic Nbt649 Osmo 283 mOsmo 09/03/2015 T4 Ord4 T4 11.9 ug/dL 09/03/2015 Free T4 Pgq505 FREE T4 1.80 ng/dL 04/16/2015 Tsh Ord6 hTSH II 0.01 uIU/mL 04/16/2015 Tsh Ord6 hTSH II 0.14 uIU/mL 03/24/2015 Lipid Ord30 CHOL 105 mg/dL 03/24/2015 Lipid Ord30 HDL 44.0 mg/dl 03/24/2015 Lipid Ord30 TRIG 92 mg/dL 03/24/2015 Lipid Ord30 LDL 43 mg/dL 03/24/2015 Lipid Ord30 C/HDL 2.4 Ratio 03/24/2015 Comp Metabolic Bzp935 NA 137 mEq/L 03/24/2015 Comp Metabolic Wbk100 K 4.0 mEq/L 03/24/2015 Comp Metabolic Xht379 CL 103 mEq/L 03/24/2015 Comp Metabolic Iwb187 CO2 25.0 mEq/L 03/24/2015 Comp Metabolic Rub467 ANION GAP 13 03/24/2015 Comp Metabolic Hai204 GLUCOSE 151 mg/dL 03/24/2015 Comp Metabolic Vbt364 Creat 1.0 mg/dL 03/24/2015 Comp Metabolic Ije163 eGFR 55 ml/min/1.73m2 03/24/2015 Comp Metabolic Pxo163 BUN 31 mg/dL 03/24/2015 Comp Metabolic Ibo813 B/C Ratio 30.4 Ratio 03/24/2015 Comp Metabolic Tuq157 CALCIUM 9.4 mg/dL 03/24/2015 Comp Metabolic Loe802 ALK PHOS 61 U/L 03/24/2015 Comp Metabolic Dah541 AST(SGOT) 14 U/L 03/24/2015 Comp Metabolic Fmk601 ALT(SGPT) 14 U/L 03/24/2015 Comp Metabolic Nej198 BILI T 0.5 mg/dL 03/24/2015 Comp Metabolic Whj721 ALBUMIN 3.8 g/dL 03/24/2015 Comp Metabolic Avm193 TPRO 5.8 g/dL 03/24/2015 Comp Metabolic Sqc001 GLOB 2.0 g/dL 03/24/2015 Comp Metabolic Wqi726 A/G Ratio 1.9 Ratio 03/24/2015 Comp Metabolic Lba515 Osmo 283 mOsmo 03/24/2015 Cbc With Differential Ord2 WBC 6.8 K/uL 03/24/2015 Cbc With Differential Ord2 LYM 1.7 K/uL 03/24/2015 Cbc With Differential Ord2 LYM% 24.3 % 03/24/2015 Cbc With Differential Ord2 NEUT/GRAN 4.6 K/uL 03/24/2015 Cbc With Differential Ord2 NEUT/GRAN % 67.0 % 03/24/2015 Cbc With Differential Ord2 MID 0.6 K/uL 03/24/2015 Cbc With Differential Ord2 MID% 8.7 % 03/24/2015 Cbc With Differential Ord2 RBC 3.55 M/uL 03/24/2015 Cbc With Differential Ord2 HGB 11.4 g/dL 03/24/2015 Cbc With Differential Ord2 HCT 35.8 % 03/24/2015 Cbc With Differential Ord2 MCV 101 fL 03/24/2015 Cbc With Differential Ord2 MCH 32 pg 03/24/2015 Cbc With Differential Ord2 MCHC 32 g/dL 03/24/2015 Cbc With Differential Ord2 PLT 215 K/uL 03/24/2015 Cbc With Differential Ord2 RDW 13.7 % 03/24/2015 Tsh Ord6 hTSH II 0.65 uIU/mL 01/14/2015 Free T4 Gba807 FREE T4 1.23 ng/dL 01/14/2015 TSH [id number] TSH 1.780 uIU/ML 12/31/2013 FREE T4 [id number] FREE T4 1.22 NG/DL 12/31/2013 CBC [id number] WBC 4.8 10e9/L 09/09/2013 CBC [id number] RBC 3.09 10e12/L 09/09/2013 CBC [id number] HGB 10.1 g/dL 09/09/2013 CBC [id number] HCT DET 30.7 % 09/09/2013 CBC [id number] MCV 99.4 fL 09/09/2013 CBC [id number] MCH 32.7 pg 09/09/2013 CBC [id number] MCHC 32.9 g/dL 09/09/2013 CBC [id number] PLT 228 10e9/L 09/09/2013 CBC [id number] MPV 9.7 fL 09/09/2013 CBC [id number] HCEMA % 57.6 % 09/09/2013 CBC [id number] LY % 28.4 % 09/09/2013 CBC [id number] MON % 9.8 % 09/09/2013 CBC [id number] EOS % 3.8 % 09/09/2013 CBC [id number] BASO % 0.4 % 09/09/2013 CBC [id number] RDW 13.2 % 09/09/2013 CBC [id number] ABS CHEMA 2.76 10e9/L 09/09/2013 CBC [id number] ABS LYMPH 1.36 10e9/L 09/09/2013 CBC [id number] ABS MONO 0.47 10e9/L 09/09/2013 CBC [id number] ABS EOS 0.18 10e9/L 09/09/2013 CBC [id number] ABS BASO 0.02 10e9/L 09/09/2013 CBC [id number] RDW-SD 46.2 fL 09/09/2013 CHEM 14 [id number] AST 19 U/L 09/09/2013 CHEM 14 [id number] ALT 14 IU/L 09/09/2013 CHEM 14 [id number] BUN 31 MG/DL 09/09/2013 CHEM 14 [id number] ALBUMIN 4.1 GM/DL 09/09/2013 CHEM 14 [id number] CHLORIDE 107 MMOL/L 09/09/2013 CHEM 14 [id number] BILI TOT 0.4 MG/DL 09/09/2013 CHEM 14 [id number] ALK PHOS 58 U/L 09/09/2013 CHEM 14 [id number] SODIUM 140 MMOL/L 09/09/2013 CHEM 14 [id number] CREATININE 1.01 MG/DL 09/09/2013 CHEM 14 [id number] CALCIUM 9.4 MG/DL 09/09/2013 CHEM 14 [id number] POTASSIUM 4.8 MMOL/L 09/09/2013 CHEM 14 [id number] PROT TOT 5.1 GM/DL 09/09/2013 CHEM 14 [id number] GLUCOSE 139 MG/DL 09/09/2013 CHEM 14 [id number] BICARB 30 MMOL/L 09/09/2013 CHEM 14 [id number] ANION GAP 3 MEQ/L 09/09/2013 GFR CALC [id number] GFR AA >60 ML/MIN 09/09/2013 GFR CALC 3720531 GFR NON-AA 53.0L ML/MIN 09/09/2013 FREE T4 [id number] FREE T4 1.45 NG/DL 09/09/2013 TSH [id number] TSH 0.309 uIU/ML 09/09/2013 FREE T4 [id number] FREE T4 1.22 NG/DL 03/12/2013 TSH [id number] TSH 5.747 uIU/ML 03/12/2013 GFR CALC 3076938 GFR AA >60 ML/MIN 03/12/2013 GFR CALC 2372133 GFR NON-AA 54.0L ML/MIN 03/12/2013 CHEM 14 [id number] AST 19 U/L 03/12/2013 CHEM 14 [id number] ALT 15 U/L 03/12/2013 CHEM 14 [id number] BUN 32 MG/DL 03/12/2013 CHEM 14 [id number] ALBUMIN 4.2 GM/DL 03/12/2013 CHEM 14 [id number] CHLORIDE 102 MMOL/L 03/12/2013 CHEM 14 [id number] BILI TOT 0.4 MG/DL 03/12/2013 CHEM 14 [id number] ALK PHOS 78 U/L 03/12/2013 CHEM 14 [id number] SODIUM 137 MMOL/L 03/12/2013 CHEM 14 [id number] CREATININE 0.99 MG/DL 03/12/2013 CHEM 14 [id number] CALCIUM 9.3 MG/DL 03/12/2013 CHEM 14 [id number] POTASSIUM 4.3 MMOL/L 03/12/2013 CHEM 14 [id number] PROT TOT 6.3 GM/DL 03/12/2013 CHEM 14 [id number] GLUCOSE 170 MG/DL 03/12/2013 CHEM 14 [id number] BICARB 27 MMOL/L 03/12/2013 CHEM 14 [id number] ANION GAP 8 MMOL/L 03/12/2013 Review of Systems System Result Effective Dates Constitutional No recent illness 2017 Constitutional No chills 03/29/2018 Constitutional No insomnia 03/29/2018 Eyes No vision change 03/29/2018 Ears/Nose/Throat/Neck No dental pain Ears/Nose/Throat/Neck No nasal lesion Ears/Nose/Throat/Neck No sore throat Ears/Nose/Throat/Neck No oral pain 2017 Cardiovascular No dyspnea 03/29/2018 Cardiovascular hypertension 03/29/2018 Respiratory No productive sputum 2017 Respiratory No aspiration 03/29/2018 Respiratory No chest congestion 2017 Respiratory No cough 03/29/2018 Respiratory No dyspnea on exertion 2017 Gastrointestinal No abdominal pain 2017 Gastrointestinal No constipation 2017 Gastrointestinal No dyspepsia 03/29/2018 Gastrointestinal No gastroesophageal reflux 03/29/2018 Genitourinary/Nephrology No dysuria 03/29 Genitourinary/Nephrology No nocturia Genitourinary/Nephrology No urinary urgency 03/29/2018 Musculoskeletal arthralgia(s) 03/29/2018 Musculoskeletal No back pain 03/29/2018 Musculoskeletal joint complaint 2017 Neurologic No headache 03/29/2018 Neurologic memory loss 03/29/2018 Psychiatric anxiety 03/29/2018 Psychiatric disturbances of memory 2017 Constitutional No recent illness 2017 Constitutional No chills 03/01/2018 Constitutional No insomnia 03/01/2018 Eyes No vision change 03/01/2018 Ears/Nose/Throat/Neck No dental pain Ears/Nose/Throat/Neck No nasal lesion Ears/Nose/Throat/Neck No sore throat Ears/Nose/Throat/Neck No oral pain 2017 Cardiovascular No dyspnea 03/01/2018 Cardiovascular hypertension 03/01/2018 Respiratory No productive sputum 2017 Respiratory No aspiration 03/01/2018 Respiratory No chest congestion 2017 Respiratory No cough 03/01/2018 Respiratory No dyspnea on exertion 2017 Gastrointestinal No abdominal pain 2017 Gastrointestinal No constipation 2017 Gastrointestinal No dyspepsia 03/01/2018 Gastrointestinal No gastroesophageal reflux 03/01/2018 Genitourinary/Nephrology No dysuria 03/01 Genitourinary/Nephrology No nocturia Genitourinary/Nephrology No urinary urgency 03/01/2018 Musculoskeletal arthralgia(s) 03/01/2018 Musculoskeletal No back pain 03/01/2018 Musculoskeletal joint complaint 2017 Neurologic No headache 03/01/2018 Neurologic memory loss 03/01/2018 Psychiatric anxiety 03/01/2018 Psychiatric disturbances of memory 2017 Constitutional No recent illness 2017 Constitutional No chills 02/13/2018 Constitutional No insomnia 02/13/2018 Eyes No vision change 02/13/2018 Ears/Nose/Throat/Neck No dental pain Ears/Nose/Throat/Neck No nasal lesion Ears/Nose/Throat/Neck No sore throat Ears/Nose/Throat/Neck No oral pain 2017 Cardiovascular No dyspnea 02/13/2018 Cardiovascular hypertension 02/13/2018 Respiratory No productive sputum 2017 Respiratory No aspiration 02/13/2018 Respiratory No chest congestion 2017 Respiratory No cough 02/13/2018 Respiratory No dyspnea on exertion 2017 Gastrointestinal No abdominal pain 2017 Gastrointestinal No constipation 2017 Gastrointestinal No dyspepsia 02/13/2018 Gastrointestinal No gastroesophageal reflux 02/13/2018 Genitourinary/Nephrology No dysuria 02/13 Genitourinary/Nephrology No nocturia Genitourinary/Nephrology No urinary urgency 02/13/2018 Musculoskeletal arthralgia(s) 02/13/2018 Musculoskeletal No back pain 02/13/2018 Musculoskeletal joint complaint 2017 Neurologic No headache 02/13/2018 Neurologic memory loss 02/13/2018 Psychiatric anxiety 02/13/2018 Psychiatric disturbances of memory 2017 Constitutional No recent illness 2017 Constitutional No chills 01/15/2018 Constitutional No insomnia 01/15/2018 Eyes No vision change 01/15/2018 Ears/Nose/Throat/Neck No dental pain Ears/Nose/Throat/Neck No nasal lesion Ears/Nose/Throat/Neck No sore throat Ears/Nose/Throat/Neck No oral pain 2017 Ears/Nose/Throat/Neck postnasal drip Cardiovascular No chest pain/pressure Cardiovascular No dyspnea 01/15/2018 Cardiovascular hypertension 01/15/2018 Respiratory No productive sputum 2017 Respiratory No aspiration 01/15/2018 Respiratory No chest congestion 2017 Respiratory No cough 01/15/2018 Respiratory No dyspnea on exertion 2017 Gastrointestinal No abdominal pain 2017 Gastrointestinal No constipation 2017 Gastrointestinal No diarrhea 01/15/2018 Gastrointestinal No dyspepsia 01/15/2018 Gastrointestinal No gastroesophageal reflux 01/15/2018 Gastrointestinal No nausea 01/15/2018 Gastrointestinal No vomiting 01/15/2018 Genitourinary/Nephrology No dysuria 01/15 Genitourinary/Nephrology No nocturia Genitourinary/Nephrology No urinary urgency 01/15/2018 Musculoskeletal arthralgia(s) 01/15/2018 Musculoskeletal No back pain 01/15/2018 Musculoskeletal joint complaint 2017 Dermatologic No rash 01/15/2018 Dermatologic No sores 01/15/2018 Neurologic No headache 01/15/2018 Neurologic memory loss 01/15/2018 Psychiatric anxiety 01/15/2018 Psychiatric disturbances of memory 2017 Constitutional No recent illness 2017 Constitutional No chills 10/03/2017 Constitutional No insomnia 10/03/2017 Eyes No vision change 10/03/2017 Ears/Nose/Throat/Neck No dental pain 08/2017 Ears/Nose/Throat/Neck No nasal lesion 08/2017 Ears/Nose/Throat/Neck No sore throat 08/2017 Ears/Nose/Throat/Neck No oral pain 2017 Ears/Nose/Throat/Neck postnasal drip 08/2017 Cardiovascular No chest pain/pressure 08/2017 Cardiovascular No dyspnea 10/03/2017 Cardiovascular hypertension 10/03/2017 Respiratory No productive sputum 2017 Respiratory No aspiration 10/03/2017 Respiratory No chest congestion 2017 Respiratory No cough 10/03/2017 Respiratory No dyspnea on exertion 2017 Gastrointestinal No abdominal pain 2017 Gastrointestinal No constipation 2017 Gastrointestinal No diarrhea 10/03/2017 Gastrointestinal No dyspepsia 10/03/2017 Gastrointestinal No gastroesophageal reflux 10/03/2017 Gastrointestinal No nausea 10/03/2017 Gastrointestinal No vomiting 10/03/2017 Genitourinary/Nephrology No dysuria 10/03 Genitourinary/Nephrology No nocturia 08/2017 Genitourinary/Nephrology No urinary urgency 10/03/2017 Musculoskeletal arthralgia(s) 10/03/2017 Musculoskeletal No back pain 10/03/2017 Musculoskeletal joint complaint 2017 Dermatologic No rash 10/03/2017 Dermatologic No sores 10/03/2017 Neurologic No headache 10/03/2017 Neurologic memory loss 10/03/2017 Psychiatric anxiety 10/03/2017 Psychiatric disturbances of memory 2017 Constitutional No recent illness 2017 Constitutional No chills 09/19/2017 Constitutional No diaphoresis 09/19/2017 Constitutional No fever 09/19/2017 Eyes No eye erythema 09/19/2017 Ears/Nose/Throat/Neck No nasal discharge 09/19/2017 Cardiovascular No chest pain/pressure Cardiovascular No dyspnea 09/19/2017 Respiratory No cough 09/19/2017 Gastrointestinal No abdominal pain 2017 Gastrointestinal No dysphagia 09/19/2017 Gastrointestinal No vomiting 09/19/2017 Gastrointestinal No nausea 09/19/2017 Gastrointestinal No constipation 2017 Gastrointestinal No diarrhea 09/19/2017 Musculoskeletal No joint complaint 2017 Dermatologic No rash 09/19/2017 Neurologic No alteration of consciousness 09/19/2017 Neurologic No mental status change 2017 Constitutional No recent illness 2017 Constitutional No chills 07/06/2017 Constitutional No insomnia 07/06/2017 Eyes No vision change 07/06/2017 Ears/Nose/Throat/Neck No dental pain 10/2017 Ears/Nose/Throat/Neck No nasal lesion 10/2017 Ears/Nose/Throat/Neck No sore throat 10/2017 Ears/Nose/Throat/Neck No oral pain 2017 Ears/Nose/Throat/Neck postnasal drip 10/2017 Cardiovascular No chest pain/pressure 10/2017 Cardiovascular No dyspnea 07/06/2017 Cardiovascular hypertension 07/06/2017 Respiratory No productive sputum 2017 Respiratory No aspiration 07/06/2017 Respiratory No chest congestion 2017 Respiratory No cough 07/06/2017 Respiratory No dyspnea on exertion 2017 Gastrointestinal No abdominal pain 2017 Gastrointestinal No constipation 2017 Gastrointestinal No diarrhea 07/06/2017 Gastrointestinal No dyspepsia 07/06/2017 Gastrointestinal No gastroesophageal reflux 07/06/2017 Gastrointestinal No nausea 07/06/2017 Gastrointestinal No vomiting 07/06/2017 Genitourinary/Nephrology No dysuria 07/06 Genitourinary/Nephrology No nocturia 10/2017 Genitourinary/Nephrology No urinary urgency 07/06/2017 Musculoskeletal arthralgia(s) 07/06/2017 Musculoskeletal No back pain 07/06/2017 Musculoskeletal joint complaint 2017 Dermatologic No rash 07/06/2017 Dermatologic No sores 07/06/2017 Neurologic No headache 07/06/2017 Neurologic memory loss 07/06/2017 Psychiatric anxiety 07/06/2017 Psychiatric disturbances of memory 2017 Constitutional No recent illness 2016 Constitutional No chills 04/04/2017 Constitutional No insomnia 04/04/2017 Ears/Nose/Throat/Neck No dental pain 08/2016 Ears/Nose/Throat/Neck No nasal lesion 08/2016 Ears/Nose/Throat/Neck No sore throat 08/2016 Ears/Nose/Throat/Neck No oral pain 2016 Ears/Nose/Throat/Neck postnasal drip 08/2016 Cardiovascular No chest pain/pressure 08/2016 Cardiovascular No dyspnea 04/04/2017 Cardiovascular hypertension 04/04/2017 Respiratory No aspiration 04/04/2017 Respiratory No chest congestion 2016 Respiratory No cough 04/04/2017 Respiratory No dyspnea on exertion 2016 Gastrointestinal No constipation 2016 Gastrointestinal No diarrhea 04/04/2017 Gastrointestinal No dyspepsia 04/04/2017 Musculoskeletal arthralgia(s) 04/04/2017 Musculoskeletal No back pain 04/04/2017 Musculoskeletal joint complaint 2016 Dermatologic No rash 04/04/2017 Dermatologic No sores 04/04/2017 Neurologic No headache 04/04/2017 Neurologic memory loss 04/04/2017 Psychiatric anxiety 04/04/2017 Psychiatric disturbances of memory 2016 Constitutional No recent illness 2016 Constitutional No chills 02/28/2017 Constitutional No insomnia 02/28/2017 Eyes No vision change 02/28/2017 Ears/Nose/Throat/Neck No dental pain Ears/Nose/Throat/Neck No nasal lesion Ears/Nose/Throat/Neck No sore throat Ears/Nose/Throat/Neck No oral pain 2016 Ears/Nose/Throat/Neck postnasal drip Cardiovascular No chest pain/pressure Cardiovascular No dyspnea 02/28/2017 Cardiovascular hypertension 02/28/2017 Respiratory No productive sputum 2016 Respiratory No aspiration 02/28/2017 Respiratory No chest congestion 2016 Respiratory No cough 02/28/2017 Respiratory No dyspnea on exertion 2016 Gastrointestinal No abdominal pain 2016 Gastrointestinal No constipation 2016 Gastrointestinal No diarrhea 02/28/2017 Gastrointestinal No dyspepsia 02/28/2017 Gastrointestinal No gastroesophageal reflux 02/28/2017 Gastrointestinal No nausea 02/28/2017 Gastrointestinal No vomiting 02/28/2017 Genitourinary/Nephrology No dysuria 02/28 Genitourinary/Nephrology No nocturia Genitourinary/Nephrology No urinary urgency 02/28/2017 Musculoskeletal arthralgia(s) 02/28/2017 Musculoskeletal No back pain 02/28/2017 Musculoskeletal joint complaint 2016 Dermatologic No rash 02/28/2017 Dermatologic No sores 02/28/2017 Neurologic No headache 02/28/2017 Neurologic memory loss 02/28/2017 Psychiatric anxiety 02/28/2017 Psychiatric disturbances of memory 2016 Constitutional recent illness 11/29/2016 Constitutional No chills 11/29/2016 Constitutional No insomnia 11/29/2016 Ears/Nose/Throat/Neck No dental pain Ears/Nose/Throat/Neck No nasal lesion Ears/Nose/Throat/Neck No sore throat Ears/Nose/Throat/Neck No oral pain 2016 Ears/Nose/Throat/Neck postnasal drip Cardiovascular No chest pain/pressure Cardiovascular No dyspnea 11/29/2016 Cardiovascular hypertension 11/29/2016 Respiratory No productive sputum 2016 Respiratory No aspiration 11/29/2016 Respiratory No chest congestion 2016 Respiratory No cough 11/29/2016 Respiratory No dyspnea on exertion 2016 Gastrointestinal No abdominal pain 2016 Gastrointestinal No constipation 2016 Gastrointestinal No diarrhea 11/29/2016 Gastrointestinal No dyspepsia 11/29/2016 Gastrointestinal No gastroesophageal reflux 11/29/2016 Gastrointestinal No nausea 11/29/2016 Gastrointestinal No vomiting 11/29/2016 Musculoskeletal arthralgia(s) 11/29/2016 Musculoskeletal No back pain 11/29/2016 Musculoskeletal joint complaint 2016 Musculoskeletal muscle weakness 2016 Neurologic No headache 11/29/2016 Neurologic memory loss 11/29/2016 Psychiatric anxiety 11/29/2016 Psychiatric disturbances of memory 2016 Constitutional No chills 11/02/2016 Constitutional No insomnia 11/02/2016 Eyes No vision change 11/02/2016 Ears/Nose/Throat/Neck No dental pain 08/2016 Ears/Nose/Throat/Neck No nasal lesion 08/2016 Ears/Nose/Throat/Neck No sore throat 08/2016 Ears/Nose/Throat/Neck No oral pain 2016 Ears/Nose/Throat/Neck postnasal drip 08/2016 Cardiovascular No chest pain/pressure 08/2016 Cardiovascular No dyspnea 11/02/2016 Cardiovascular hypertension 11/02/2016 Respiratory No productive sputum 2016 Respiratory No aspiration 11/02/2016 Respiratory No chest congestion 2016 Respiratory No cough 11/02/2016 Respiratory No dyspnea on exertion 2016 Gastrointestinal No abdominal pain 2016 Gastrointestinal No constipation 2016 Gastrointestinal No diarrhea 11/02/2016 Gastrointestinal No dyspepsia 11/02/2016 Gastrointestinal No gastroesophageal reflux 11/02/2016 Gastrointestinal No nausea 11/02/2016 Gastrointestinal No vomiting 11/02/2016 Genitourinary/Nephrology No dysuria 11/02 Genitourinary/Nephrology No nocturia 08/2016 Genitourinary/Nephrology No urinary urgency 11/02/2016 Musculoskeletal arthralgia(s) 11/02/2016 Musculoskeletal No back pain 11/02/2016 Musculoskeletal joint complaint 2016 Dermatologic No rash 11/02/2016 Dermatologic No sores 11/02/2016 Neurologic No headache 11/02/2016 Neurologic memory loss 11/02/2016 Psychiatric anxiety 11/02/2016 Psychiatric disturbances of memory 2016 Constitutional recent illness 11/02/2016 Musculoskeletal muscle weakness 2016 Constitutional No chills 08/30/2016 Constitutional No insomnia 08/30/2016 Eyes No vision change 08/30/2016 Ears/Nose/Throat/Neck No dental pain Ears/Nose/Throat/Neck No nasal lesion Ears/Nose/Throat/Neck No sore throat Ears/Nose/Throat/Neck No oral pain 2016 Ears/Nose/Throat/Neck postnasal drip Cardiovascular No chest pain/pressure Cardiovascular No dyspnea 08/30/2016 Cardiovascular hypertension 08/30/2016 Respiratory No productive sputum 2016 Respiratory No aspiration 08/30/2016 Respiratory No chest congestion 2016 Respiratory No cough 08/30/2016 Respiratory No dyspnea on exertion 2016 Gastrointestinal No abdominal pain 2016 Gastrointestinal No constipation 2016 Gastrointestinal No diarrhea 08/30/2016 Gastrointestinal No dyspepsia 08/30/2016 Gastrointestinal No gastroesophageal reflux 08/30/2016 Gastrointestinal No nausea 08/30/2016 Gastrointestinal No vomiting 08/30/2016 Genitourinary/Nephrology No dysuria 08/30 Genitourinary/Nephrology No nocturia Genitourinary/Nephrology No urinary urgency 08/30/2016 Musculoskeletal arthralgia(s) 08/30/2016 Musculoskeletal No back pain 08/30/2016 Musculoskeletal joint complaint 2016 Dermatologic No rash 08/30/2016 Dermatologic No sores 08/30/2016 Neurologic No headache 08/30/2016 Neurologic memory loss 08/30/2016 Psychiatric anxiety 08/30/2016 Psychiatric disturbances of memory 2016 Constitutional No recent illness 2016 Constitutional No chills 05/03/2016 Constitutional No insomnia 05/03/2016 Eyes No vision change 05/03/2016 Ears/Nose/Throat/Neck No dental pain 07/2015 Ears/Nose/Throat/Neck No nasal lesion 07/2015 Ears/Nose/Throat/Neck No sore throat 07/2015 Ears/Nose/Throat/Neck No oral pain 2015 Ears/Nose/Throat/Neck postnasal drip 07/2015 Cardiovascular No chest pain/pressure 07/2015 Cardiovascular No dyspnea 05/03/2016 Cardiovascular hypertension 05/03/2016 Respiratory No productive sputum 2015 Respiratory No aspiration 05/03/2016 Respiratory No chest congestion 2015 Respiratory No cough 05/03/2016 Respiratory No dyspnea on exertion 2015 Gastrointestinal No abdominal pain 2015 Gastrointestinal No constipation 2015 Gastrointestinal No diarrhea 05/03/2016 Gastrointestinal No dyspepsia 05/03/2016 Gastrointestinal No gastroesophageal reflux 05/03/2016 Gastrointestinal No nausea 05/03/2016 Gastrointestinal No vomiting 05/03/2016 Genitourinary/Nephrology No dysuria 05/03 Genitourinary/Nephrology No nocturia 07/2015 Genitourinary/Nephrology No urinary urgency 05/03/2016 Musculoskeletal arthralgia(s) 05/03/2016 Musculoskeletal No back pain 05/03/2016 Musculoskeletal joint complaint 2015 Dermatologic No rash 05/03/2016 Dermatologic No sores 05/03/2016 Neurologic No headache 05/03/2016 Neurologic memory loss 05/03/2016 Psychiatric anxiety 05/03/2016 Psychiatric disturbances of memory 2015 Constitutional No chills 02/02/2016 Constitutional No insomnia 02/02/2016 Eyes No vision change 02/02/2016 Ears/Nose/Throat/Neck No dental pain 08/2015 Ears/Nose/Throat/Neck No nasal lesion 08/2015 Ears/Nose/Throat/Neck No sore throat 08/2015 Ears/Nose/Throat/Neck No oral pain 2015 Ears/Nose/Throat/Neck postnasal drip 08/2015 Cardiovascular No chest pain/pressure 08/2015 Cardiovascular No dyspnea 02/02/2016 Cardiovascular hypertension 02/02/2016 Respiratory No productive sputum 2015 Respiratory No aspiration 02/02/2016 Respiratory No chest congestion 2015 Respiratory No cough 02/02/2016 Respiratory No dyspnea on exertion 2015 Gastrointestinal No abdominal pain 2015 Gastrointestinal No constipation 2015 Gastrointestinal No diarrhea 02/02/2016 Gastrointestinal No dyspepsia 02/02/2016 Gastrointestinal No gastroesophageal reflux 02/02/2016 Gastrointestinal No nausea 02/02/2016 Gastrointestinal No vomiting 02/02/2016 Genitourinary/Nephrology No dysuria 02/01 Genitourinary/Nephrology No nocturia 08/2015 Genitourinary/Nephrology No urinary urgency 02/02/2016 Musculoskeletal arthralgia(s) 02/02/2016 Musculoskeletal No back pain 02/02/2016 Musculoskeletal joint complaint 2015 Dermatologic No rash 02/02/2016 Dermatologic No sores 02/02/2016 Neurologic No headache 02/02/2016 Neurologic memory loss 02/02/2016 Psychiatric anxiety 02/02/2016 Psychiatric disturbances of memory 2015 Constitutional No chills 12/30/2015 Constitutional No insomnia 12/30/2015 Eyes No vision change 12/30/2015 Ears/Nose/Throat/Neck No dental pain Ears/Nose/Throat/Neck No nasal lesion Ears/Nose/Throat/Neck No sore throat Ears/Nose/Throat/Neck No oral pain 2015 Ears/Nose/Throat/Neck postnasal drip Cardiovascular No chest pain/pressure Cardiovascular No dyspnea 12/30/2015 Cardiovascular hypertension 12/30/2015 Respiratory No productive sputum 2015 Respiratory No aspiration 12/30/2015 Respiratory No chest congestion 2015 Respiratory No cough 12/30/2015 Respiratory No dyspnea on exertion 2015 Gastrointestinal No abdominal pain 2015 Gastrointestinal No constipation 2015 Gastrointestinal No diarrhea 12/30/2015 Gastrointestinal No dyspepsia 12/30/2015 Gastrointestinal No gastroesophageal reflux 12/30/2015 Gastrointestinal No nausea 12/30/2015 Gastrointestinal No vomiting 12/30/2015 Genitourinary/Nephrology No dysuria 12/29 Genitourinary/Nephrology No nocturia Genitourinary/Nephrology No urinary urgency 12/30/2015 Musculoskeletal arthralgia(s) 12/30/2015 Musculoskeletal No back pain 12/30/2015 Musculoskeletal joint complaint 2015 Dermatologic No rash 12/30/2015 Dermatologic No sores 12/30/2015 Neurologic No headache 12/30/2015 Neurologic memory loss 12/30/2015 Neurologic tinnitus 12/30/2015 Psychiatric anxiety 12/30/2015 Psychiatric disturbances of memory 2015 Constitutional No chills 11/03/2015 Constitutional No insomnia 11/03/2015 Eyes No vision change 11/03/2015 Ears/Nose/Throat/Neck No dental pain 09/2015 Ears/Nose/Throat/Neck hearing loss 2015 Ears/Nose/Throat/Neck No nasal lesion 09/2015 Ears/Nose/Throat/Neck No sore throat 09/2015 Ears/Nose/Throat/Neck No oral pain 2015 Ears/Nose/Throat/Neck postnasal drip 09/2015 Cardiovascular No chest pain/pressure 09/2015 Cardiovascular No dyspnea 11/03/2015 Cardiovascular edema 11/03/2015 Cardiovascular hypertension 11/03/2015 Respiratory No productive sputum 2015 Respiratory No aspiration 11/03/2015 Respiratory No chest congestion 2015 Respiratory No cough 11/03/2015 Respiratory No dyspnea on exertion 2015 Respiratory snoring 11/03/2015 Gastrointestinal No abdominal pain 2015 Gastrointestinal No constipation 2015 Gastrointestinal No diarrhea 11/03/2015 Gastrointestinal No dyspepsia 11/03/2015 Gastrointestinal No gastroesophageal reflux 11/03/2015 Gastrointestinal No nausea 11/03/2015 Gastrointestinal No vomiting 11/03/2015 Genitourinary/Nephrology No dysuria 11/02 Genitourinary/Nephrology No nocturia 09/2015 Genitourinary/Nephrology No urinary urgency 11/03/2015 Musculoskeletal stiffness 11/03/2015 Musculoskeletal arthralgia(s) 11/03/2015 Musculoskeletal No back pain 11/03/2015 Musculoskeletal joint complaint 2015 Dermatologic No rash 11/03/2015 Dermatologic No sores 11/03/2015 Neurologic No headache 11/03/2015 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 11/03/2015 Neurologic tinnitus 11/03/2015 Psychiatric anxiety 11/03/2015 Psychiatric depression 11/03/2015 Psychiatric disturbances of memory 2015 Constitutional No chills 09/02/2015 Constitutional No insomnia 09/02/2015 Eyes No vision change 09/02/2015 Ears/Nose/Throat/Neck No dental pain 08/2015 Ears/Nose/Throat/Neck No nasal lesion 08/2015 Ears/Nose/Throat/Neck No sore throat 08/2015 Ears/Nose/Throat/Neck No oral pain 2015 Ears/Nose/Throat/Neck postnasal drip 08/2015 Cardiovascular No chest pain/pressure 08/2015 Cardiovascular No dyspnea 09/02/2015 Cardiovascular hypertension 09/02/2015 Respiratory No productive sputum 2015 Respiratory No aspiration 09/02/2015 Respiratory No chest congestion 2015 Respiratory No cough 09/02/2015 Respiratory No dyspnea on exertion 2015 Gastrointestinal No abdominal pain 2015 Gastrointestinal No constipation 2015 Gastrointestinal No diarrhea 09/02/2015 Gastrointestinal No dyspepsia 09/02/2015 Gastrointestinal No gastroesophageal reflux 09/02/2015 Gastrointestinal No nausea 09/02/2015 Gastrointestinal No vomiting 09/02/2015 Genitourinary/Nephrology No dysuria 09/01 Genitourinary/Nephrology No nocturia 08/2015 Genitourinary/Nephrology No urinary urgency 09/02/2015 Musculoskeletal arthralgia(s) 09/02/2015 Musculoskeletal No back pain 09/02/2015 Musculoskeletal joint complaint 2015 Dermatologic No rash 09/02/2015 Dermatologic No sores 09/02/2015 Neurologic No headache 09/02/2015 Neurologic memory loss 09/02/2015 Neurologic tinnitus 09/02/2015 Psychiatric anxiety 09/02/2015 Psychiatric depression 09/02/2015 Psychiatric disturbances of memory 2015 Constitutional No chills 08/04/2015 Constitutional No insomnia 08/04/2015 Eyes No vision change 08/04/2015 Ears/Nose/Throat/Neck No dental pain 08/2015 Ears/Nose/Throat/Neck No nasal lesion 08/2015 Ears/Nose/Throat/Neck No sore throat 08/2015 Ears/Nose/Throat/Neck No oral pain 2015 Ears/Nose/Throat/Neck postnasal drip 08/2015 Cardiovascular No chest pain/pressure 08/2015 Cardiovascular No dyspnea 08/04/2015 Cardiovascular hypertension 08/04/2015 Respiratory No productive sputum 2015 Respiratory No aspiration 08/04/2015 Respiratory No chest congestion 2015 Respiratory No cough 08/04/2015 Respiratory No dyspnea on exertion 2015 Gastrointestinal No abdominal pain 2015 Gastrointestinal No constipation 2015 Gastrointestinal No diarrhea 08/04/2015 Gastrointestinal No dyspepsia 08/04/2015 Gastrointestinal No gastroesophageal reflux 08/04/2015 Gastrointestinal No nausea 08/04/2015 Gastrointestinal No vomiting 08/04/2015 Genitourinary/Nephrology No dysuria 08/04 Genitourinary/Nephrology No nocturia 08/2015 Genitourinary/Nephrology No urinary urgency 08/04/2015 Musculoskeletal arthralgia(s) 08/04/2015 Musculoskeletal No back pain 08/04/2015 Musculoskeletal joint complaint 2015 Dermatologic No rash 08/04/2015 Dermatologic No sores 08/04/2015 Neurologic No headache 08/04/2015 Neurologic memory loss 08/04/2015 Neurologic tinnitus 08/04/2015 Psychiatric anxiety 08/04/2015 Psychiatric depression 08/04/2015 Psychiatric disturbances of memory 2015 Constitutional No chills 05/05/2015 Constitutional No insomnia 05/05/2015 Eyes No vision change 05/05/2015 Ears/Nose/Throat/Neck No dental pain 08/2014 Ears/Nose/Throat/Neck hearing loss 2014 Ears/Nose/Throat/Neck No nasal lesion 08/2014 Ears/Nose/Throat/Neck No sore throat 08/2014 Ears/Nose/Throat/Neck No oral pain 2014 Ears/Nose/Throat/Neck postnasal drip 08/2014 Cardiovascular No chest pain/pressure 08/2014 Cardiovascular No dyspnea 05/05/2015 Cardiovascular edema 05/05/2015 Cardiovascular hypertension 05/05/2015 Respiratory No productive sputum 2014 Respiratory No aspiration 05/05/2015 Respiratory No chest congestion 2014 Respiratory No cough 05/05/2015 Respiratory No dyspnea on exertion 2014 Respiratory snoring 05/05/2015 Gastrointestinal No abdominal pain 2014 Gastrointestinal No constipation 2014 Gastrointestinal No diarrhea 05/05/2015 Gastrointestinal No dyspepsia 05/05/2015 Gastrointestinal No gastroesophageal reflux 05/05/2015 Gastrointestinal No nausea 05/05/2015 Gastrointestinal No vomiting 05/05/2015 Genitourinary/Nephrology No dysuria 05/05 Genitourinary/Nephrology No nocturia 08/2014 Genitourinary/Nephrology No urinary urgency 05/05/2015 Musculoskeletal stiffness 05/05/2015 Musculoskeletal arthralgia(s) 05/05/2015 Musculoskeletal No back pain 05/05/2015 Musculoskeletal joint complaint 2014 Dermatologic No rash 05/05/2015 Dermatologic No sores 05/05/2015 Neurologic No headache 05/05/2015 Neurologic hearing loss 05/05/2015 Neurologic memory loss 05/05/2015 Psychiatric anxiety 05/05/2015 Psychiatric depression 05/05/2015 Psychiatric disturbances of memory 2014 Constitutional No chills 04/15/2015 Constitutional No insomnia 04/15/2015 Eyes No vision change 04/15/2015 Ears/Nose/Throat/Neck No dental pain Ears/Nose/Throat/Neck hearing loss 2014 Ears/Nose/Throat/Neck No nasal lesion Ears/Nose/Throat/Neck No sore throat Ears/Nose/Throat/Neck No oral pain 2014 Ears/Nose/Throat/Neck postnasal drip Cardiovascular No chest pain/pressure Cardiovascular No dyspnea 04/15/2015 Cardiovascular edema 04/15/2015 Cardiovascular hypertension 04/15/2015 Respiratory No productive sputum 2014 Respiratory No aspiration 04/15/2015 Respiratory No chest congestion 2014 Respiratory No cough 04/15/2015 Respiratory No dyspnea on exertion 2014 Respiratory snoring 04/15/2015 Gastrointestinal No abdominal pain 2014 Gastrointestinal No constipation 2014 Gastrointestinal No diarrhea 04/15/2015 Gastrointestinal No dyspepsia 04/15/2015 Gastrointestinal No gastroesophageal reflux 04/15/2015 Gastrointestinal No nausea 04/15/2015 Gastrointestinal No vomiting 04/15/2015 Genitourinary/Nephrology No dysuria 04/15 Genitourinary/Nephrology No nocturia Genitourinary/Nephrology No urinary urgency 04/15/2015 Musculoskeletal stiffness 04/15/2015 Musculoskeletal arthralgia(s) 04/15/2015 Musculoskeletal No back pain 04/15/2015 Musculoskeletal joint complaint 2014 Dermatologic No rash 04/15/2015 Dermatologic No sores 04/15/2015 Neurologic No headache 04/15/2015 Neurologic hearing loss 04/15/2015 Neurologic memory loss 04/15/2015 Neurologic tinnitus 04/15/2015 Psychiatric anxiety 04/15/2015 Psychiatric depression 04/15/2015 Psychiatric disturbances of memory 2014 Constitutional No chills 02/03/2015 Constitutional No insomnia 02/03/2015 Eyes No vision change 02/03/2015 Ears/Nose/Throat/Neck No dental pain 10/2014 Ears/Nose/Throat/Neck hearing loss 2014 Ears/Nose/Throat/Neck No nasal lesion 10/2014 Ears/Nose/Throat/Neck No sore throat 10/2014 Ears/Nose/Throat/Neck No oral pain 2014 Ears/Nose/Throat/Neck postnasal drip 10/2014 Cardiovascular No chest pain/pressure 10/2014 Cardiovascular No dyspnea 02/03/2015 Cardiovascular edema 02/03/2015 Cardiovascular hypertension 02/03/2015 Respiratory No productive sputum 2014 Respiratory No aspiration 02/03/2015 Respiratory No chest congestion 2014 Respiratory No cough 02/03/2015 Respiratory No dyspnea on exertion 2014 Respiratory snoring 02/03/2015 Gastrointestinal No abdominal pain 2014 Gastrointestinal No constipation 2014 Gastrointestinal No diarrhea 02/03/2015 Gastrointestinal No dyspepsia 02/03/2015 Gastrointestinal No gastroesophageal reflux 02/03/2015 Gastrointestinal No nausea 02/03/2015 Gastrointestinal No vomiting 02/03/2015 Genitourinary/Nephrology No dysuria 02/03 Genitourinary/Nephrology No nocturia 10/2014 Genitourinary/Nephrology No urinary urgency 02/03/2015 Musculoskeletal stiffness 02/03/2015 Musculoskeletal arthralgia(s) 02/03/2015 Musculoskeletal No back pain 02/03/2015 Musculoskeletal joint complaint 2014 Dermatologic No rash 02/03/2015 Dermatologic No sores 02/03/2015 Neurologic No headache 02/03/2015 Neurologic hearing loss 02/03/2015 Neurologic memory loss 02/03/2015 Neurologic tinnitus 02/03/2015 Psychiatric anxiety 02/03/2015 Psychiatric depression 02/03/2015 Psychiatric disturbances of memory 2014 Constitutional No insomnia 12/02/2014 Cardiovascular No chest pain/pressure 08/2014 Cardiovascular edema 12/02/2014 Cardiovascular No dyspnea 12/02/2014 Respiratory No chest congestion 2014 Respiratory No cough 12/02/2014 Ears/Nose/Throat/Neck postnasal drip 08/2014 Gastrointestinal No abdominal pain 2014 Gastrointestinal No constipation 2014 Gastrointestinal No diarrhea 12/02/2014 Gastrointestinal No vomiting 12/02/2014 Gastrointestinal No nausea 12/02/2014 Constitutional No chills 12/02/2014 Eyes No vision change 12/02/2014 Ears/Nose/Throat/Neck No dental pain 08/2014 Ears/Nose/Throat/Neck hearing loss 2014 Ears/Nose/Throat/Neck No nasal lesion 08/2014 Ears/Nose/Throat/Neck No sore throat 08/2014 Ears/Nose/Throat/Neck No oral pain 2014 Cardiovascular hypertension 12/02/2014 Respiratory No productive sputum 2014 Respiratory No aspiration 12/02/2014 Respiratory No dyspnea on exertion 2014 Respiratory snoring 12/02/2014 Gastrointestinal No dyspepsia 12/02/2014 Gastrointestinal No gastroesophageal reflux 12/02/2014 Genitourinary/Nephrology No dysuria 12/02 Genitourinary/Nephrology No nocturia 08/2014 Genitourinary/Nephrology No urinary urgency 12/02/2014 Musculoskeletal stiffness 12/02/2014 Musculoskeletal arthralgia(s) 12/02/2014 Musculoskeletal No back pain 12/02/2014 Musculoskeletal joint complaint 2014 Dermatologic No rash 12/02/2014 Dermatologic No sores 12/02/2014 Neurologic No headache 12/02/2014 Neurologic hearing loss 12/02/2014 Neurologic memory loss 12/02/2014 Neurologic tinnitus 12/02/2014 Psychiatric anxiety 12/02/2014 Psychiatric depression 12/02/2014 Psychiatric disturbances of memory 2014 Constitutional No recent illness 2014 Constitutional No anorexia 10/14/2014 Constitutional No night sweats 2014 Constitutional No chills 10/14/2014 Constitutional No diaphoresis 10/14/2014 Constitutional No fatigue 10/14/2014 Constitutional No fever 10/14/2014 Constitutional No insomnia 10/14/2014 Constitutional No malaise 10/14/2014 Eyes No eye discharge 10/14/2014 Eyes No vision change 10/14/2014 Ears/Nose/Throat/Neck No dental pain Ears/Nose/Throat/Neck hearing loss 2014 Ears/Nose/Throat/Neck nasal allergies Ears/Nose/Throat/Neck nasal discharge Ears/Nose/Throat/Neck No oral pain 2014 Ears/Nose/Throat/Neck sinus congestion Ears/Nose/Throat/Neck sore throat 2014 Cardiovascular No chest pain/pressure Respiratory No productive sputum 2014 Respiratory No cough 10/14/2014 Respiratory No dyspnea on exertion 2014 Respiratory No dyspnea 10/14/2014 Respiratory snoring 10/14/2014 Gastrointestinal No abdominal pain 2014 Gastrointestinal No constipation 2014 Gastrointestinal No diarrhea 10/14/2014 Gastrointestinal No gastroesophageal reflux 10/14/2014 Gastrointestinal No nausea 10/14/2014 Gastrointestinal No vomiting 10/14/2014 Genitourinary/Nephrology No dysuria 10/14 Genitourinary/Nephrology No nocturia Genitourinary/Nephrology No urinary urgency 10/14/2014 Musculoskeletal stiffness 10/14/2014 Musculoskeletal arthralgia(s) 10/14/2014 Musculoskeletal No back pain 10/14/2014 Musculoskeletal joint complaint 2014 Dermatologic rash 10/14/2014 Dermatologic No sores 10/14/2014 Psychiatric anxiety 10/14/2014 Psychiatric depression 10/14/2014 Psychiatric disturbances of memory 2014 Constitutional No chills 07/17/2014 Constitutional fatigue 07/17/2014 Eyes No vision change 07/17/2014 Ears/Nose/Throat/Neck No dental pain Ears/Nose/Throat/Neck hearing loss 2014 Ears/Nose/Throat/Neck nasal allergies Ears/Nose/Throat/Neck No nasal lesion Ears/Nose/Throat/Neck No sore throat Ears/Nose/Throat/Neck No oral pain 2014 Ears/Nose/Throat/Neck postnasal drip Respiratory No productive sputum 2014 Respiratory No aspiration 07/17/2014 Respiratory No cough 07/17/2014 Respiratory No dyspnea on exertion 2014 Respiratory No dyspnea 07/17/2014 Respiratory snoring 07/17/2014 Gastrointestinal No abdominal pain 2014 Gastrointestinal No diarrhea 07/17/2014 Gastrointestinal No dyspepsia 07/17/2014 Gastrointestinal No gastroesophageal reflux 07/17/2014 Genitourinary/Nephrology No dysuria 07/17 Genitourinary/Nephrology No nocturia Genitourinary/Nephrology No urinary urgency 07/17/2014 Musculoskeletal stiffness 07/17/2014 Musculoskeletal No back pain 07/17/2014 Musculoskeletal joint complaint 2014 Dermatologic rash 07/17/2014 Dermatologic No sores 07/17/2014 Neurologic No headache 07/17/2014 Neurologic hearing loss 07/17/2014 Neurologic memory loss 07/17/2014 Neurologic tinnitus 07/17/2014 Psychiatric anxiety 07/17/2014 Psychiatric depression 07/17/2014 Psychiatric disturbances of memory 2014 Musculoskeletal muscle weakness 2014 Musculoskeletal arthralgia(s) 07/17/2014 Constitutional recent illness 06/05/2014 Constitutional No anorexia 06/05/2014 Constitutional No night sweats 2013 Constitutional No chills 06/05/2014 Constitutional No diaphoresis 06/05/2014 Constitutional fatigue 06/05/2014 Constitutional No fever 06/05/2014 Constitutional No insomnia 06/05/2014 Constitutional malaise 06/05/2014 Eyes No eye discharge 06/05/2014 Eyes No eye erythema 06/05/2014 Ears/Nose/Throat/Neck No dizziness 2013 Ears/Nose/Throat/Neck headache 2013 Ears/Nose/Throat/Neck nasal allergies 10/2013 Ears/Nose/Throat/Neck nasal discharge 10/2013 Ears/Nose/Throat/Neck No otalgia 2013 Ears/Nose/Throat/Neck sinus congestion Ears/Nose/Throat/Neck No sore throat 10/2013 Respiratory productive sputum 06/05/2014 Respiratory cough 06/05/2014 Respiratory No dyspnea on exertion 2013 Respiratory No dyspnea 06/05/2014 Gastrointestinal No abdominal pain 2013 Gastrointestinal No constipation 2013 Gastrointestinal No diarrhea 06/05/2014 Genitourinary/Nephrology No dysuria 06/05 Musculoskeletal No joint complaint 2013 Dermatologic rash 06/05/2014 Psychiatric No anxiety 06/05/2014 Psychiatric No depression 06/05/2014 Constitutional No recent illness 2013 Constitutional No anorexia 05/08/2014 Constitutional No night sweats 2013 Constitutional No chills 05/08/2014 Constitutional No diaphoresis 05/08/2014 Constitutional No fatigue 05/08/2014 Constitutional No fever 05/08/2014 Constitutional No insomnia 05/08/2014 Constitutional No malaise 05/08/2014 Eyes No eye discharge 05/08/2014 Eyes No eye erythema 05/08/2014 Ears/Nose/Throat/Neck No dizziness 2013 Ears/Nose/Throat/Neck No headache 2013 Ears/Nose/Throat/Neck nasal allergies 12/2013 Ears/Nose/Throat/Neck nasal discharge 12/2013 Ears/Nose/Throat/Neck No otalgia 2013 Ears/Nose/Throat/Neck sinus congestion Ears/Nose/Throat/Neck No sore throat 12/2013 Respiratory productive sputum 05/08/2014 Respiratory No dyspnea on exertion 2013 Respiratory cough 05/08/2014 Respiratory No dyspnea 05/08/2014 Gastrointestinal No abdominal pain 2013 Gastrointestinal No constipation 2013 Gastrointestinal No diarrhea 05/08/2014 Genitourinary/Nephrology No dysuria 05/08 Musculoskeletal No joint complaint 2013 Dermatologic rash 05/08/2014 Constitutional No recent illness 2013 Constitutional No anorexia 04/17/2014 Constitutional No night sweats 2013 Constitutional No chills 04/17/2014 Constitutional No diaphoresis 04/17/2014 Constitutional No fatigue 04/17/2014 Constitutional No fever 04/17/2014 Constitutional No insomnia 04/17/2014 Constitutional No malaise 04/17/2014 Eyes No eye discharge 04/17/2014 Eyes No vision change 04/17/2014 Ears/Nose/Throat/Neck No dental pain Ears/Nose/Throat/Neck hearing loss 2013 Ears/Nose/Throat/Neck nasal allergies Ears/Nose/Throat/Neck nasal discharge Ears/Nose/Throat/Neck No oral pain 2013 Ears/Nose/Throat/Neck sinus congestion Ears/Nose/Throat/Neck sore throat 10/16/ 2014 Cardiovascular No chest pain/pressure Respiratory No productive sputum 2013 Respiratory No cough 04/17/2014 Respiratory No dyspnea on exertion 2013 Respiratory No dyspnea 04/17/2014 Respiratory snoring 04/17/2014 Gastrointestinal No abdominal pain 2013 Gastrointestinal No constipation 2013 Gastrointestinal No diarrhea 04/17/2014 Gastrointestinal No gastroesophageal reflux 04/17/2014 Gastrointestinal No nausea 04/17/2014 Gastrointestinal No vomiting 04/17/2014 Genitourinary/Nephrology No dysuria 04/17 Genitourinary/Nephrology No nocturia Genitourinary/Nephrology No urinary urgency 04/17/2014 Musculoskeletal stiffness 04/17/2014 Musculoskeletal arthralgia(s) 04/17/2014 Musculoskeletal No back pain 04/17/2014 Musculoskeletal joint complaint 2013 Dermatologic No rash 04/17/2014 Dermatologic sores 04/17/2014 Psychiatric anxiety 04/17/2014 Psychiatric depression 04/17/2014 Psychiatric disturbances of memory 2013 Constitutional No chills 02/27/2014 Eyes No vision change 02/27/2014 Ears/Nose/Throat/Neck No dental pain Ears/Nose/Throat/Neck hearing loss 2013 Ears/Nose/Throat/Neck sore throat 2013 Ears/Nose/Throat/Neck No oral pain 2013 Respiratory No productive sputum 2013 Respiratory No cough 02/27/2014 Respiratory No dyspnea 02/27/2014 Respiratory snoring 02/27/2014 Gastrointestinal No abdominal pain 2013 Gastrointestinal No diarrhea 02/27/2014 Gastrointestinal No gastroesophageal reflux 02/27/2014 Genitourinary/Nephrology No dysuria 02/27 Genitourinary/Nephrology No nocturia Genitourinary/Nephrology No urinary urgency 02/27/2014 Musculoskeletal stiffness 02/27/2014 Musculoskeletal arthralgia(s) 02/27/2014 Musculoskeletal No back pain 02/27/2014 Musculoskeletal joint complaint 2013 Dermatologic No rash 02/27/2014 Dermatologic No sores 02/27/2014 Psychiatric anxiety 02/27/2014 Psychiatric depression 02/27/2014 Psychiatric disturbances of memory 2013 Constitutional No recent illness 2013 Constitutional No night sweats 2013 Constitutional No anorexia 02/27/2014 Constitutional No diaphoresis 02/27/2014 Constitutional No fatigue 02/27/2014 Constitutional No fever 02/27/2014 Constitutional No insomnia 02/27/2014 Constitutional No malaise 02/27/2014 Eyes No eye discharge 02/27/2014 Ears/Nose/Throat/Neck nasal allergies Ears/Nose/Throat/Neck nasal discharge Ears/Nose/Throat/Neck sinus congestion Cardiovascular No chest pain/pressure Respiratory No dyspnea on exertion 2013 Gastrointestinal No vomiting 02/27/2014 Gastrointestinal No nausea 02/27/2014 Gastrointestinal No constipation 2013 Constitutional No chills 12/31/2013 Eyes No vision change 12/31/2013 Ears/Nose/Throat/Neck No dental pain 07/2013 Ears/Nose/Throat/Neck hearing loss 2013 Ears/Nose/Throat/Neck No nasal lesion 07/2013 Ears/Nose/Throat/Neck No sore throat 07/2013 Ears/Nose/Throat/Neck No oral pain 2013 Respiratory No productive sputum 2013 Respiratory No aspiration 12/31/2013 Respiratory No cough 12/31/2013 Respiratory No dyspnea on exertion 2013 Respiratory No dyspnea 12/31/2013 Respiratory snoring 12/31/2013 Gastrointestinal No abdominal pain 2013 Gastrointestinal No diarrhea 12/31/2013 Gastrointestinal No dyspepsia 12/31/2013 Gastrointestinal No gastroesophageal reflux 12/31/2013 Genitourinary/Nephrology No dysuria 12/31 Genitourinary/Nephrology No nocturia 07/2013 Genitourinary/Nephrology No urinary urgency 12/31/2013 Musculoskeletal stiffness 12/31/2013 Musculoskeletal arthralgia(s) 12/31/2013 Musculoskeletal No back pain 12/31/2013 Musculoskeletal joint complaint 2013 Dermatologic No rash 12/31/2013 Dermatologic No sores 12/31/2013 Neurologic No headache 12/31/2013 Neurologic hearing loss 12/31/2013 Neurologic memory loss 12/31/2013 Neurologic tinnitus 12/31/2013 Psychiatric anxiety 12/31/2013 Psychiatric depression 12/31/2013 Psychiatric disturbances of memory 2013 Cardiovascular hypertension 12/31/2013 Constitutional No chills 12/09/2013 Constitutional fatigue 12/09/2013 Constitutional insomnia 12/09/2013 Eyes No vision change 12/09/2013 Ears/Nose/Throat/Neck No dental pain 03/2014 Ears/Nose/Throat/Neck hearing loss 2013 Ears/Nose/Throat/Neck nasal allergies 03/2014 Ears/Nose/Throat/Neck No nasal lesion 03/2014 Ears/Nose/Throat/Neck No sore throat 03/2014 Ears/Nose/Throat/Neck snoring 12/09/2013 Ears/Nose/Throat/Neck No oral pain 2013 Ears/Nose/Throat/Neck postnasal drip 03/2014 Respiratory No productive sputum 2013 Respiratory No aspiration 12/09/2013 Respiratory No cough 12/09/2013 Respiratory No dyspnea on exertion 2013 Respiratory No dyspnea 12/09/2013 Respiratory snoring 12/09/2013 Gastrointestinal No abdominal pain 2013 Gastrointestinal No diarrhea 12/09/2013 Gastrointestinal No dyspepsia 12/09/2013 Gastrointestinal No gastroesophageal reflux 12/09/2013 Genitourinary/Nephrology No dysuria 12/09 Genitourinary/Nephrology No nocturia 03/2014 Genitourinary/Nephrology No urinary urgency 12/09/2013 Musculoskeletal stiffness 12/09/2013 Musculoskeletal arthralgia(s) 12/09/2013 Musculoskeletal No back pain 12/09/2013 Musculoskeletal joint complaint 2013 Dermatologic No rash 12/09/2013 Dermatologic No sores 12/09/2013 Neurologic No headache 12/09/2013 Neurologic hearing loss 12/09/2013 Neurologic memory loss 12/09/2013 Neurologic tinnitus 12/09/2013 Psychiatric anxiety 12/09/2013 Psychiatric depression 12/09/2013 Psychiatric disturbances of memory 2013 Constitutional No chills 09/09/2013 Constitutional fatigue 09/09/2013 Constitutional insomnia 09/09/2013 Eyes No vision change 09/09/2013 Ears/Nose/Throat/Neck No dental pain 04/2014 Ears/Nose/Throat/Neck hearing loss 2013 Ears/Nose/Throat/Neck nasal allergies 04/2014 Ears/Nose/Throat/Neck No nasal lesion 04/2014 Ears/Nose/Throat/Neck No sore throat 04/2014 Ears/Nose/Throat/Neck snoring 09/09/2013 Ears/Nose/Throat/Neck No oral pain 2013 Ears/Nose/Throat/Neck postnasal drip 04/2014 Respiratory No productive sputum 2013 Respiratory No aspiration 09/09/2013 Respiratory No cough 09/09/2013 Respiratory No dyspnea on exertion 2013 Respiratory No dyspnea 09/09/2013 Respiratory snoring 09/09/2013 Gastrointestinal No abdominal pain 2013 Gastrointestinal No diarrhea 09/09/2013 Gastrointestinal No dyspepsia 09/09/2013 Gastrointestinal No gastroesophageal reflux 09/09/2013 Genitourinary/Nephrology No dysuria 09/09 Genitourinary/Nephrology No nocturia 04/2014 Genitourinary/Nephrology No urinary urgency 09/09/2013 Musculoskeletal stiffness 09/09/2013 Musculoskeletal arthralgia(s) 09/09/2013 Musculoskeletal No back pain 09/09/2013 Musculoskeletal joint complaint 2013 Dermatologic No rash 09/09/2013 Dermatologic No sores 09/09/2013 Neurologic No headache 09/09/2013 Neurologic hearing loss 09/09/2013 Neurologic memory loss 09/09/2013 Neurologic tinnitus 09/09/2013 Psychiatric anxiety 09/09/2013 Psychiatric depression 09/09/2013 Psychiatric disturbances of memory 2013 Constitutional No chills 06/17/2013 Constitutional fatigue 06/17/2013 Constitutional insomnia 06/17/2013 Eyes No vision change 06/17/2013 Ears/Nose/Throat/Neck No dental pain Ears/Nose/Throat/Neck hearing loss 2012 Ears/Nose/Throat/Neck nasal allergies Ears/Nose/Throat/Neck No nasal lesion Ears/Nose/Throat/Neck No sore throat Ears/Nose/Throat/Neck snoring 06/17/2013 Ears/Nose/Throat/Neck No oral pain 2012 Ears/Nose/Throat/Neck postnasal drip Respiratory No productive sputum 2012 Respiratory No aspiration 06/17/2013 Respiratory No cough 06/17/2013 Respiratory No dyspnea on exertion 2012 Respiratory No dyspnea 06/17/2013 Respiratory snoring 06/17/2013 Gastrointestinal No abdominal pain 2012 Gastrointestinal No diarrhea 06/17/2013 Gastrointestinal No dyspepsia 06/17/2013 Gastrointestinal No gastroesophageal reflux 06/17/2013 Genitourinary/Nephrology No dysuria 06/17 Genitourinary/Nephrology No nocturia Genitourinary/Nephrology No urinary urgency 06/17/2013 Musculoskeletal stiffness 06/17/2013 Musculoskeletal arthralgia(s) 06/17/2013 Musculoskeletal No back pain 06/17/2013 Musculoskeletal joint complaint 2012 Dermatologic No rash 06/17/2013 Dermatologic No sores 06/17/2013 Neurologic No headache 06/17/2013 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 06/17/2013 Neurologic tinnitus 06/17/2013 Psychiatric anxiety 06/17/2013 Psychiatric depression 06/17/2013 Psychiatric disturbances of memory 2012 Constitutional fever 05/28/2013 Constitutional No chills 05/28/2013 Eyes No eye discharge 05/28/2013 Eyes No eye erythema 05/28/2013 Ears/Nose/Throat/Neck facial pain 2012 Ears/Nose/Throat/Neck nasal discharge Ears/Nose/Throat/Neck No otalgia 2012 Ears/Nose/Throat/Neck sore throat 2012 Ears/Nose/Throat/Neck sinus congestion Cardiovascular No chest pain/pressure Respiratory cough 05/28/2013 Respiratory No chest tightness 2012 Respiratory No dyspnea 05/28/2013 Gastrointestinal No abdominal pain 2012 Gastrointestinal No constipation 2012 Gastrointestinal No diarrhea 05/28/2013 Gastrointestinal No nausea 05/28/2013 Gastrointestinal No vomiting 05/28/2013 Respiratory No productive sputum 2012 Constitutional No chills 03/12/2013 Constitutional fatigue 03/12/2013 Constitutional insomnia 03/12/2013 Eyes No vision change 03/12/2013 Ears/Nose/Throat/Neck No dental pain 04/2013 Ears/Nose/Throat/Neck hearing loss 2012 Ears/Nose/Throat/Neck nasal allergies 04/2013 Ears/Nose/Throat/Neck No nasal lesion 04/2013 Ears/Nose/Throat/Neck No sore throat 04/2013 Ears/Nose/Throat/Neck snoring 03/12/2013 Ears/Nose/Throat/Neck No oral pain 2012 Ears/Nose/Throat/Neck tinnitus 2012 Ears/Nose/Throat/Neck postnasal drip 04/2013 Respiratory No productive sputum 2012 Respiratory No aspiration 03/12/2013 Respiratory No cough 03/12/2013 Respiratory No dyspnea on exertion 2012 Respiratory No dyspnea 03/12/2013 Respiratory snoring 03/12/2013 Gastrointestinal No abdominal pain 2012 Gastrointestinal No diarrhea 03/12/2013 Gastrointestinal No dyspepsia 03/12/2013 Gastrointestinal No gastroesophageal reflux 03/12/2013 Genitourinary/Nephrology No dysuria 03/12 Genitourinary/Nephrology No nocturia 04/2013 Genitourinary/Nephrology No urinary urgency 03/12/2013 Musculoskeletal stiffness 03/12/2013 Musculoskeletal arthralgia(s) 03/12/2013 Musculoskeletal No back pain 03/12/2013 Musculoskeletal joint complaint 2012 Dermatologic No rash 03/12/2013 Dermatologic No sores 03/12/2013 Neurologic No headache 03/12/2013 Neurologic hearing loss 03/12/2013 Neurologic memory loss 03/12/2013 Neurologic tinnitus 03/12/2013 Psychiatric anxiety 03/12/2013 Psychiatric depression 03/12/2013 Psychiatric disturbances of memory 2012 Constitutional No chills 01/22/2013 Constitutional fatigue 01/22/2013 Constitutional insomnia 01/22/2013 Eyes No vision change 01/22/2013 Ears/Nose/Throat/Neck No dental pain Ears/Nose/Throat/Neck hearing loss 2012 Ears/Nose/Throat/Neck nasal allergies Ears/Nose/Throat/Neck No nasal lesion Ears/Nose/Throat/Neck No sore throat Ears/Nose/Throat/Neck snoring 01/22/2013 Ears/Nose/Throat/Neck No oral pain 2012 Ears/Nose/Throat/Neck tinnitus 2012 Ears/Nose/Throat/Neck postnasal drip Respiratory No productive sputum 2012 Respiratory No aspiration 01/22/2013 Respiratory No cough 01/22/2013 Respiratory No dyspnea on exertion 2012 Respiratory No dyspnea 01/22/2013 Respiratory snoring 01/22/2013 Gastrointestinal No abdominal pain 2012 Gastrointestinal No diarrhea 01/22/2013 Gastrointestinal No dyspepsia 01/22/2013 Gastrointestinal No gastroesophageal reflux 01/22/2013 Genitourinary/Nephrology No dysuria 01/22 Genitourinary/Nephrology No nocturia Genitourinary/Nephrology No urinary urgency 01/22/2013 Musculoskeletal stiffness 01/22/2013 Musculoskeletal arthralgia(s) 01/22/2013 Musculoskeletal No back pain 01/22/2013 Musculoskeletal joint complaint 2012 Dermatologic No rash 01/22/2013 Dermatologic No sores 01/22/2013 Neurologic No headache 01/22/2013 Neurologic hearing loss 01/22/2013 Neurologic memory loss 01/22/2013 Neurologic tinnitus 01/22/2013 Psychiatric anxiety 01/22/2013 Psychiatric depression 01/22/2013 Psychiatric disturbances of memory 2012 Constitutional No chills 11/14/2012 Constitutional fatigue 11/14/2012 Constitutional insomnia 11/14/2012 Eyes No vision change 11/14/2012 Ears/Nose/Throat/Neck No dental pain Ears/Nose/Throat/Neck hearing loss 2012 Ears/Nose/Throat/Neck nasal allergies Ears/Nose/Throat/Neck No nasal lesion Ears/Nose/Throat/Neck No sore throat Ears/Nose/Throat/Neck snoring 11/14/2012 Ears/Nose/Throat/Neck No oral pain 2012 Ears/Nose/Throat/Neck tinnitus 2012 Ears/Nose/Throat/Neck postnasal drip Respiratory No productive sputum 2012 Respiratory No aspiration 11/14/2012 Respiratory No cough 11/14/2012 Respiratory No dyspnea on exertion 2012 Respiratory No dyspnea 11/14/2012 Respiratory snoring 11/14/2012 Gastrointestinal No abdominal pain 2012 Gastrointestinal No diarrhea 11/14/2012 Gastrointestinal No dyspepsia 11/14/2012 Gastrointestinal No gastroesophageal reflux 11/14/2012 Genitourinary/Nephrology No dysuria 11/14 Genitourinary/Nephrology No nocturia Genitourinary/Nephrology No urinary urgency 11/14/2012 Musculoskeletal stiffness 11/14/2012 Musculoskeletal arthralgia(s) 11/14/2012 Musculoskeletal No back pain 11/14/2012 Musculoskeletal joint complaint 2012 Dermatologic No rash 11/14/2012 Dermatologic No sores 11/14/2012 Neurologic No headache 11/14/2012 Neurologic hearing loss 11/14/2012 Neurologic memory loss 11/14/2012 Neurologic tinnitus 11/14/2012 Psychiatric anxiety 11/14/2012 Psychiatric depression 11/14/2012 Psychiatric disturbances of memory 2012 Constitutional No chills 09/12/2012 Constitutional fatigue 09/12/2012 Eyes No vision change 09/12/2012 Ears/Nose/Throat/Neck No dental pain Ears/Nose/Throat/Neck hearing loss 2012 Ears/Nose/Throat/Neck nasal allergies Ears/Nose/Throat/Neck No nasal lesion Ears/Nose/Throat/Neck No sore throat Ears/Nose/Throat/Neck snoring 09/12/2012 Ears/Nose/Throat/Neck No oral pain 2012 Ears/Nose/Throat/Neck tinnitus 2012 Ears/Nose/Throat/Neck postnasal drip Respiratory No productive sputum 2012 Respiratory No aspiration 09/12/2012 Respiratory No cough 09/12/2012 Respiratory No dyspnea on exertion 2012 Respiratory No dyspnea 09/12/2012 Respiratory snoring 09/12/2012 Gastrointestinal No abdominal pain 2012 Gastrointestinal No diarrhea 09/12/2012 Gastrointestinal No dyspepsia 09/12/2012 Gastrointestinal No gastroesophageal reflux 09/12/2012 Genitourinary/Nephrology No dysuria 09/12 Genitourinary/Nephrology No nocturia Genitourinary/Nephrology No urinary urgency 09/12/2012 Musculoskeletal stiffness 09/12/2012 Musculoskeletal arthralgia(s) 09/12/2012 Musculoskeletal No back pain 09/12/2012 Musculoskeletal joint complaint 2012 Dermatologic No rash 09/12/2012 Dermatologic No sores 09/12/2012 Neurologic No headache 09/12/2012 Neurologic hearing loss 09/12/2012 Neurologic memory loss 09/12/2012 Neurologic tinnitus 09/12/2012 Psychiatric anxiety 09/12/2012 Psychiatric depression 09/12/2012 Psychiatric disturbances of memory 2012 Constitutional insomnia 09/12/2012 Constitutional No chills 05/31/2012 Constitutional fatigue 05/31/2012 Eyes No vision change 05/31/2012 Ears/Nose/Throat/Neck No dental pain Ears/Nose/Throat/Neck hearing loss 2011 Ears/Nose/Throat/Neck nasal allergies Ears/Nose/Throat/Neck nasal discharge Ears/Nose/Throat/Neck No nasal lesion Ears/Nose/Throat/Neck No oral pain 2011 Ears/Nose/Throat/Neck postnasal drip Ears/Nose/Throat/Neck No sore throat Respiratory No productive sputum 2011 Respiratory No aspiration 05/31/2012 Respiratory No cough 05/31/2012 Respiratory No dyspnea on exertion 2011 Respiratory No dyspnea 05/31/2012 Respiratory snoring 05/31/2012 Gastrointestinal No abdominal pain 2011 Gastrointestinal constipation 05/31/2012 Gastrointestinal No diarrhea 05/31/2012 Gastrointestinal No dyspepsia 05/31/2012 Gastrointestinal No gastroesophageal reflux 05/31/2012 Genitourinary/Nephrology No dysuria 05/31 Genitourinary/Nephrology No nocturia Genitourinary/Nephrology No urinary urgency 05/31/2012 Musculoskeletal stiffness 05/31/2012 Musculoskeletal arthralgia(s) 05/31/2012 Musculoskeletal No back pain 05/31/2012 Musculoskeletal joint complaint 2011 Dermatologic No rash 05/31/2012 Dermatologic No sores 05/31/2012 Neurologic No headache 05/31/2012 Neurologic hearing loss 05/31/2012 Neurologic memory loss 05/31/2012 Neurologic tinnitus 05/31/2012 Psychiatric anxiety 05/31/2012 Psychiatric depression 05/31/2012 Psychiatric disturbances of memory 2011 Constitutional insomnia 05/31/2012 Constitutional No chills 05/01/2012 Constitutional fatigue 05/01/2012 Constitutional insomnia 05/01/2012 Eyes No vision change 05/01/2012 Ears/Nose/Throat/Neck postnasal drip Respiratory No productive sputum 2011 Respiratory No aspiration 05/01/2012 Respiratory No cough 05/01/2012 Respiratory No dyspnea on exertion 2011 Respiratory No dyspnea 05/01/2012 Respiratory snoring 05/01/2012 Gastrointestinal No abdominal pain 2011 Gastrointestinal constipation 05/01/2012 Gastrointestinal No diarrhea 05/01/2012 Gastrointestinal No dyspepsia 05/01/2012 Gastrointestinal No gastroesophageal reflux 05/01/2012 Genitourinary/Nephrology No dysuria 05/01 Genitourinary/Nephrology No nocturia Genitourinary/Nephrology No urinary urgency 05/01/2012 Musculoskeletal stiffness 05/01/2012 Musculoskeletal arthralgia(s) 05/01/2012 Musculoskeletal No back pain 05/01/2012 Musculoskeletal joint complaint 2011 Dermatologic No rash 05/01/2012 Dermatologic No sores 05/01/2012 Neurologic No headache 05/01/2012 Neurologic hearing loss 05/01/2012 Neurologic memory loss 05/01/2012 Neurologic tinnitus 05/01/2012 Psychiatric anxiety 05/01/2012 Psychiatric depression 05/01/2012 Psychiatric disturbances of memory 2011 Constitutional No chills 03/22/2012 Constitutional fatigue 03/22/2012 Constitutional insomnia 03/22/2012 Eyes No vision change 03/22/2012 Ears/Nose/Throat/Neck No dental pain Ears/Nose/Throat/Neck hearing loss 2011 Ears/Nose/Throat/Neck nasal allergies Ears/Nose/Throat/Neck nasal discharge Ears/Nose/Throat/Neck No nasal lesion Ears/Nose/Throat/Neck No oral pain 2011 Ears/Nose/Throat/Neck postnasal drip Ears/Nose/Throat/Neck snoring 03/22/2012 Ears/Nose/Throat/Neck No sore throat Ears/Nose/Throat/Neck tinnitus 2011 Respiratory No productive sputum 2011 Respiratory No aspiration 03/22/2012 Respiratory No cough 03/22/2012 Respiratory No dyspnea on exertion 2011 Respiratory No dyspnea 03/22/2012 Respiratory snoring 03/22/2012 Gastrointestinal No abdominal pain 2011 Gastrointestinal constipation 03/22/2012 Gastrointestinal No diarrhea 03/22/2012 Gastrointestinal No dyspepsia 03/22/2012 Gastrointestinal No gastroesophageal reflux 03/22/2012 Genitourinary/Nephrology No dysuria 03/22 Genitourinary/Nephrology No nocturia Genitourinary/Nephrology No urinary urgency 03/22/2012 Musculoskeletal stiffness 03/22/2012 Musculoskeletal arthralgia(s) 03/22/2012 Musculoskeletal No back pain 03/22/2012 Musculoskeletal joint complaint 2011 Dermatologic No rash 03/22/2012 Dermatologic No sores 03/22/2012 Neurologic No headache 03/22/2012 Neurologic hearing loss 03/22/2012 Neurologic memory loss 03/22/2012 Neurologic tinnitus 03/22/2012 Psychiatric anxiety 03/22/2012 Psychiatric depression 03/22/2012 Psychiatric disturbances of memory 2011 Neurologic memory loss 02/20/2012 Ears/Nose/Throat/Neck oral lesion 2011 Ears/Nose/Throat/Neck headache 2011 Ears/Nose/Throat/Neck hearing loss 2011 Ears/Nose/Throat/Neck nasal allergies Musculoskeletal arthralgia(s) 02/20/2012 Musculoskeletal stiffness 02/20/2012 Psychiatric anxiety 02/20/2012 Psychiatric depression 02/20/2012 Constitutional insomnia 02/20/2012 Constitutional No chills 02/20/2012 Constitutional fatigue 02/20/2012 Eyes No vision change 02/20/2012 Ears/Nose/Throat/Neck No dental pain Ears/Nose/Throat/Neck No nasal lesion Ears/Nose/Throat/Neck nasal discharge Ears/Nose/Throat/Neck No oral pain 2011 Ears/Nose/Throat/Neck postnasal drip Ears/Nose/Throat/Neck No sore throat Ears/Nose/Throat/Neck snoring 02/20/2012 Ears/Nose/Throat/Neck tinnitus 2011 Respiratory No productive sputum 2011 Respiratory No aspiration 02/20/2012 Respiratory No cough 02/20/2012 Respiratory No dyspnea on exertion 2011 Respiratory No dyspnea 02/20/2012 Respiratory snoring 02/20/2012 Gastrointestinal No abdominal pain 2011 Gastrointestinal constipation 02/20/2012 Gastrointestinal No diarrhea 02/20/2012 Gastrointestinal No dyspepsia 02/20/2012 Gastrointestinal No gastroesophageal reflux 02/20/2012 Genitourinary/Nephrology No dysuria 02/19 Genitourinary/Nephrology No nocturia Genitourinary/Nephrology No urinary urgency 02/20/2012 Musculoskeletal No back pain 02/20/2012 Musculoskeletal joint complaint 2011 Dermatologic No rash 02/20/2012 Dermatologic No sores 02/20/2012 Neurologic No headache 02/20/2012 Neurologic hearing loss 02/20/2012 Neurologic tinnitus 02/20/2012 Psychiatric disturbances of memory 2011 Physical Exam Exam Name System Name Item Name Status Result Effective Dates Notes Full Exam - General 1994 Constitutional general appearance Overall: well developed 03/29/2018 None Full Exam - General 1994 Constitutional general appearance Overall: in no acute distress 03/29/2018 None Full Exam - General 1994 Constitutional general appearance Overall: well nourished 03/29/2018 None Full Exam - General 1994 Eyes conjunctiva /eyelids Overall: conjunctiva clear 03/29/2018 None Full Exam - General 1994 Eyes conjunctiva /eyelids Overall: cornea clear 03/29/2018 None Full Exam - General 1994 Eyes conjunctiva /eyelids Overall: eyelids normal 03/29/2018 None Full Exam - General 1994 Eyes pupils and irises Overall: pupils equal, round, reactive to light and accomodation 03/29/2018 None Full Exam - General 1994 Ears/Nose/Throat external ear Overall: normal appearance 03/29/2018 None Full Exam - General 1995 Ears/Nose/Throat external ear Overall: normal mastoids 03/29/2018 None Full Exam - General 1994 Ears/Nose/Throat external nose Overall: benign appearance 03/29/2018 None Full Exam - General 1994 Ears/Nose/Throat internal nose Overall: bilateral nasal cavities clear 03/29/2018 None Full Exam - General 1994 Ears/Nose/Throat oral cavity/pharynx/larynx Overall: oral mucosa clear 03/29/2018 None Full Exam - General 1994 Ears/Nose/Throat oral cavity/pharynx/larynx Overall: mobile tongue benign 03/29/2018 None Full Exam - General 1994 Ears/Nose/Throat oral cavity/pharynx/larynx Oral mucosa: moist 03/29/2018 None Full Exam - General 1994 Respiratory auscultation Overall: breath sounds clear bilaterally 03/29/2018 None Full Exam - General 1995 Respiratory respiratory effort/rhythm Overall: no retractions 03/29/2018 None Full Exam - General 1994 Respiratory respiratory effort/rhythm Overall: normal rate 03/29/2018 None Full Exam - General 1994 Cardiovascular extremities Overall: no clubbing 03/29/2018 None Full Exam - General 1994 Cardiovascular auscultation of heart Rate: regular rate 03/29/2018 None Full Exam - General 1994 Cardiovascular auscultation of heart Rhythm: regular rhythm 03/29/2018 None Full Exam - General 1994 Cardiovascular auscultation of heart Systolic murmur grade: II/ 03/29/2018 very faint - best heart at upper right sternal border Full Exam - General 1994 Musculoskeletal digits and nails Nails: a normal exam 03/29/2018 None Full Exam - General 1994 Musculoskeletal digits and nails DIPs: second 03/29/2018 ulnar deviation of DIP Full Exam - General 1994 Musculoskeletal digits and nails DIPs: nodule 03/29/2018 None Full Exam - General 1994 Musculoskeletal digits and nails DIPs: deformity 03/29/2018 None Full Exam - General 1994 Musculoskeletal digits and nails DIPs: decreased flexion 03/29/2018 None Full Exam - General 1994 Musculoskeletal digits and nails DIPs: decreased extension 03/29/2018 None Full Exam - General 1994 Musculoskeletal spine, ribs and pelvis Posture: kyphosis 03/29/2018 very mild kyphosis Full Exam - General 1994 Psychiatric orientation/consciousness Overall: oriented to person, place and time 03/29/2018 None Full Exam - General 1994 Psychiatric mood and affect Overall: normal mood and affect 03/29/2018 None Full Exam - General 1994 Psychiatric appearance Overall: well-groomed, good eye contact 03/29/2018 None Full Exam - General 1994 Musculoskeletal digits and nails DIPs: first 03/29/2018 ulnar deviation of the DIP Full Exam - General 1994 Constitutional general appearance Overall: well developed 03/01/2018 None Full Exam - General 1994 Constitutional general appearance Overall: in no acute distress 03/01/2018 None Full Exam - General 1994 Constitutional general appearance Overall: well nourished 03/01/2018 None Full Exam - General 1994 Eyes conjunctiva /eyelids Overall: conjunctiva clear 03/01/2018 None Full Exam - General 1994 Eyes conjunctiva /eyelids Overall: cornea clear 03/01/2018 None Full Exam - General 1994 Eyes conjunctiva /eyelids Overall: eyelids normal 03/01/2018 None Full Exam - General 1994 Eyes pupils and irises Overall: pupils equal, round, reactive to light and accomodation 03/01/2018 None Full Exam - General 1994 Ears/Nose/Throat external ear Overall: normal appearance 03/01/2018 None Full Exam - General 1994 Ears/Nose/Throat external ear Overall: normal mastoids 03/01/2018 None Full Exam - General 1994 Ears/Nose/Throat external nose Overall: benign appearance 03/01/2018 None Full Exam - General 1994 Ears/Nose/Throat internal nose Overall: bilateral nasal cavities clear 03/01/2018 None Full Exam - General 1994 Ears/Nose/Throat oral cavity/pharynx/larynx Overall: oral mucosa clear 03/01/2018 None Full Exam - General 1994 Ears/Nose/Throat oral cavity/pharynx/larynx Overall: mobile tongue benign 03/01/2018 None Full Exam - General 1994 Ears/Nose/Throat oral cavity/pharynx/larynx Oral mucosa: moist 03/01/2018 None Full Exam - General 1994 Respiratory auscultation Overall: breath sounds clear bilaterally 03/01/2018 None Full Exam - General 1994 Respiratory respiratory effort/rhythm Overall: no retractions 03/01/2018 None Full Exam - General 1994 Respiratory respiratory effort/rhythm Overall: normal rate 03/01/2018 None Full Exam - General 1994 Cardiovascular inspection of carotid pulses Carotid pulse: carotid bruit 03/01/2018 None Full Exam - General 1994 Cardiovascular extremities Overall: no clubbing 03/01/2018 None Full Exam - General 1994 Cardiovascular auscultation of heart Rate: regular rate 03/01/2018 None Full Exam - General 1994 Cardiovascular auscultation of heart Rhythm: regular rhythm 03/01/2018 None Full Exam - General 1994 Cardiovascular auscultation of heart Systolic murmur grade: II/ 03/01/2018 very faint - best heart at upper right sternal border Full Exam - General 1994 Abdomen abdominal exam Overall: no tenderness 03/01/2018 None Full Exam - General 1994 Abdomen abdominal exam Overall: normal bowel sounds 03/01/2018 None Full Exam - General 1994 Abdomen abdominal exam Periumbilical: non-tender to palpation 03/01/2018 umbilical hernia Full Exam - General 1994 Abdomen liver and spleen exam Overall: no hepatosplenomegaly 03/01/2018 None Full Exam - General 1994 Abdomen liver and spleen exam Overall: no stigmata of chronic liver disease 03/01/2018 None Full Exam - General 1994 Musculoskeletal digits and nails Nails: a normal exam 03/01/2018 None Full Exam - General 1994 Musculoskeletal digits and nails DIPs: first 03/01/2018 ulnar deviation of the DIP Full Exam - General 1994 Musculoskeletal digits and nails DIPs: second 03/01/2018 ulnar deviation of DIP Full Exam - General 1994 Musculoskeletal digits and nails DIPs: nodule 03/01/2018 None Full Exam - General 1994 Musculoskeletal digits and nails DIPs: deformity 03/01/2018 None Full Exam - General 1994 Musculoskeletal digits and nails DIPs: decreased flexion 03/01/2018 None Full Exam - General 1994 Musculoskeletal digits and nails DIPs: decreased extension 03/01/2018 None Full Exam - General 1994 Musculoskeletal digits and nails Deformities/Nodules: heberden's node 03/01/2018 None Full Exam - General 1994 Musculoskeletal spine, ribs and pelvis Posture: kyphosis 03/01/2018 very mild kyphosis Full Exam - General 1994 Musculoskeletal head and neck Overall: head atraumatic 03/01/2018 None Full Exam - General 1994 Musculoskeletal head and neck Overall: cervical spine benign 03/01/2018 None Full Exam - General 1994 Neurologic cranial nerves Overall: crainial nerves 2 - 12 grossly intact 03/01/2018 None Full Exam - General 1994 Psychiatric orientation/consciousness Overall: oriented to person, place and time 03/01/2018 None Full Exam - General 1994 Psychiatric mood and affect Overall: normal mood and affect 03/01/2018 None Full Exam - General 1994 Psychiatric appearance Overall: well-groomed, good eye contact 03/01/2018 None Full Exam - General 1994 Psychiatric speech Overall: normal quality, quantity, rate 03/01/2018 None Full Exam - General 1994 Constitutional general appearance Overall: well developed 02/13/2018 None Full Exam - General 1994 Constitutional general appearance Overall: in no acute distress 02/13/2018 None Full Exam - General 1994 Constitutional general appearance Overall: well nourished 02/13/2018 None Full Exam - General 1994 Eyes conjunctiva /eyelids Overall: conjunctiva clear 02/13/2018 None Full Exam - General 1994 Eyes conjunctiva /eyelids Overall: cornea clear 02/13/2018 None Full Exam - General 1994 Eyes conjunctiva /eyelids Overall: eyelids normal 02/13/2018 None Full Exam - General 1994 Eyes pupils and irises Overall: pupils equal, round, reactive to light and accomodation 02/13/2018 None Full Exam - General 1994 Ears/Nose/Throat external ear Overall: normal appearance 02/13/2018 None Full Exam - General 1994 Ears/Nose/Throat external ear Overall: normal mastoids 02/13/2018 None Full Exam - General 1994 Ears/Nose/Throat external nose Overall: benign appearance 02/13/2018 None Full Exam - General 1994 Ears/Nose/Throat internal nose Overall: bilateral nasal cavities clear 02/13/2018 None Full Exam - General 1994 Ears/Nose/Throat oral cavity/pharynx/larynx Overall: oral mucosa clear 02/13/2018 None Full Exam - General 1994 Ears/Nose/Throat oral cavity/pharynx/larynx Overall: mobile tongue benign 02/13/2018 None Full Exam - General 1994 Ears/Nose/Throat oral cavity/pharynx/larynx Oral mucosa: moist 02/13/2018 None Full Exam - General 1994 Respiratory auscultation Overall: breath sounds clear bilaterally 02/13/2018 None Full Exam - General 1994 Respiratory respiratory effort/rhythm Overall: no retractions 02/13/2018 None Full Exam - General 1994 Respiratory respiratory effort/rhythm Overall: normal rate 02/13/2018 None Full Exam - General 1994 Cardiovascular inspection of carotid pulses Carotid pulse: carotid bruit 02/13/2018 None Full Exam - General 1994 Cardiovascular extremities Overall: no clubbing 02/13/2018 None Full Exam - General 1994 Cardiovascular auscultation of heart Rate: regular rate 02/13/2018 None Full Exam - General 1994 Cardiovascular auscultation of heart Rhythm: regular rhythm 02/13/2018 None Full Exam - General 1994 Cardiovascular auscultation of heart Systolic murmur grade: II/ 02/13/2018 very faint - best heart at upper right sternal border Full Exam - General 1994 Abdomen abdominal exam Overall: no tenderness 02/13/2018 None Full Exam - General 1994 Abdomen abdominal exam Overall: normal bowel sounds 02/13/2018 None Full Exam - General 1994 Abdomen abdominal exam Periumbilical: non-tender to palpation 02/13/2018 umbilical hernia Full Exam - General 1994 Abdomen liver and spleen exam Overall: no hepatosplenomegaly 02/13/2018 None Full Exam - General 1994 Abdomen liver and spleen exam Overall: no stigmata of chronic liver disease 02/13/2018 None Full Exam - General 1994 Musculoskeletal digits and nails Nails: a normal exam 02/13/2018 None Full Exam - General 1994 Musculoskeletal digits and nails DIPs: first 02/13/2018 ulnar deviation of the DIP Full Exam - General 1994 Musculoskeletal digits and nails DIPs: second 02/13/2018 ulnar deviation of DIP Full Exam - General 1994 Musculoskeletal digits and nails DIPs: nodule 02/13/2018 None Full Exam - General 1994 Musculoskeletal digits and nails DIPs: deformity 02/13/2018 None Full Exam - General 1994 Musculoskeletal digits and nails DIPs: decreased flexion 02/13/2018 None Full Exam - General 1994 Musculoskeletal digits and nails DIPs: decreased extension 02/13/2018 None Full Exam - General 1994 Musculoskeletal digits and nails Deformities/Nodules: heberden's node 02/13/2018 None Full Exam - General 1994 Musculoskeletal spine, ribs and pelvis Posture: kyphosis 02/13/2018 very mild kyphosis Full Exam - General 1994 Musculoskeletal head and neck Overall: head atraumatic 02/13/2018 None Full Exam - General 1994 Musculoskeletal head and neck Overall: cervical spine benign 02/13/2018 None Full Exam - General 1994 Neurologic cranial nerves Overall: crainial nerves 2 - 12 grossly intact 02/13/2018 None Full Exam - General 1994 Psychiatric orientation/consciousness Overall: oriented to person, place and time 02/13/2018 None Full Exam - General 1994 Psychiatric mood and affect Overall: normal mood and affect 02/13/2018 None Full Exam - General 1994 Psychiatric appearance Overall: well-groomed, good eye contact 02/13/2018 None Full Exam - General 1994 Psychiatric speech Overall: normal quality, quantity, rate 02/13/2018 None Full Exam - General 1994 Constitutional general appearance Overall: well developed 01/15/2018 None Full Exam - General 1994 Constitutional general appearance Overall: in no acute distress 01/15/2018 None Full Exam - General 1994 Constitutional general appearance Overall: well nourished 01/15/2018 None Full Exam - General 1994 Eyes conjunctiva /eyelids Overall: conjunctiva clear 01/15/2018 None Full Exam - General 1994 Eyes conjunctiva /eyelids Overall: cornea clear 01/15/2018 None Full Exam - General 1994 Eyes conjunctiva /eyelids Overall: eyelids normal 01/15/2018 None Full Exam - General 1994 Eyes pupils and irises Overall: pupils equal, round, reactive to light and accomodation 01/15/2018 None Full Exam - General 1994 Ears/Nose/Throat external ear Overall: normal appearance 01/15/2018 None Full Exam - General 1994 Ears/Nose/Throat external ear Overall: normal mastoids 01/15/2018 None Full Exam - General 1994 Ears/Nose/Throat external nose Overall: benign appearance 01/15/2018 None Full Exam - General 1994 Ears/Nose/Throat otoscopic exam Tympanic membrane: a normal exam 01/15/2018 None Full Exam - General 1994 Ears/Nose/Throat otoscopic exam Tympanic membrane: tympanosclerosis 01/15/2018 None Full Exam - General 1994 Ears/Nose/Throat internal nose Overall: bilateral nasal cavities clear 01/15/2018 None Full Exam - General 1994 Ears/Nose/Throat lips/teeth/gingiva Lips: chancre 01/15/2018 None Full Exam - General 1994 Ears/Nose/Throat oral cavity/pharynx/larynx Overall: oral mucosa clear 01/15/2018 None Full Exam - General 1994 Ears/Nose/Throat oral cavity/pharynx/larynx Overall: mobile tongue benign 01/15/2018 None Full Exam - General 1994 Ears/Nose/Throat oral cavity/pharynx/larynx Oral mucosa: moist 01/15/2018 None Full Exam - General 1994 Respiratory auscultation Overall: breath sounds clear bilaterally 01/15/2018 None Full Exam - General 1994 Respiratory respiratory effort/rhythm Overall: no retractions 01/15/2018 None Full Exam - General 1994 Respiratory respiratory effort/rhythm Overall: normal rate 01/15/2018 None Full Exam - General 1994 Cardiovascular inspection of carotid pulses Carotid pulse: carotid bruit 01/15/2018 None Full Exam - General 1994 Cardiovascular extremities Overall: no clubbing 01/15/2018 None Full Exam - General 1994 Cardiovascular extremities Edema present: non-pitting 01/15/2018 faint nonpitting edema bilateral LE Full Exam - General 1994 Cardiovascular auscultation of heart Rate: regular rate 01/15/2018 None Full Exam - General 1994 Cardiovascular auscultation of heart Rhythm: regular rhythm 01/15/2018 None Full Exam - General 1994 Cardiovascular auscultation of heart Systolic murmur grade: II/ 01/15/2018 very faint - best heart at upper right sternal border Full Exam - General 1994 Abdomen abdominal exam Overall: no tenderness 01/15/2018 None Full Exam - General 1994 Abdomen abdominal exam Overall: normal bowel sounds 01/15/2018 None Full Exam - General 1994 Abdomen abdominal exam Periumbilical: non-tender to palpation 01/15/2018 umbilical hernia Full Exam - General 1994 Abdomen liver and spleen exam Overall: no hepatosplenomegaly 01/15/2018 None Full Exam - General 1994 Abdomen liver and spleen exam Overall: no stigmata of chronic liver disease 01/15/2018 None Full Exam - General 1994 Musculoskeletal digits and nails Nails: a normal exam 01/15/2018 None Full Exam - General 1994 Musculoskeletal digits and nails DIPs: first 01/15/2018 ulnar deviation of the DIP Full Exam - General 1994 Musculoskeletal digits and nails DIPs: second 01/15/2018 ulnar deviation of DIP Full Exam - General 1994 Musculoskeletal digits and nails DIPs: nodule 01/15/2018 None Full Exam - General 1994 Musculoskeletal digits and nails DIPs: deformity 01/15/2018 None Full Exam - General 1994 Musculoskeletal digits and nails DIPs: decreased flexion 01/15/2018 None Full Exam - General 1994 Musculoskeletal digits and nails DIPs: decreased extension 01/15/2018 None Full Exam - General 1994 Musculoskeletal digits and nails Deformities/Nodules: heberden's node 01/15/2018 None Full Exam - General 1994 Musculoskeletal spine, ribs and pelvis Posture: kyphosis 01/15/2018 very mild kyphosis Full Exam - General 1994 Musculoskeletal head and neck Overall: head atraumatic 01/15/2018 None Full Exam - General 1994 Musculoskeletal head and neck Overall: cervical spine benign 01/15/2018 None Full Exam - General 1994 Neurologic deep tendon reflexes Overall: deep tendon reflexes intact 01/15/2018 None Full Exam - General 1994 Neurologic gait Overall: no ataxia, no unsteadiness 01/15/2018 None Full Exam - General 1994 Neurologic cranial nerves Overall: crainial nerves 2 - 12 grossly intact 01/15/2018 None Full Exam - General 1994 Psychiatric orientation/consciousness Overall: oriented to person, place and time 01/15/2018 None Full Exam - General 1994 Psychiatric mood and affect Overall: normal mood and affect 01/15/2018 None Full Exam - General 1994 Psychiatric mood and affect Mood: happy 01/15/2018 None Full Exam - General 1994 Psychiatric appearance Overall: well-groomed, good eye contact 01/15/2018 None Full Exam - General 1994 Psychiatric speech Overall: normal quality, quantity, rate 01/15/2018 None Full Exam - General 1994 Constitutional general appearance Overall: well developed 10/03/2017 None Full Exam - General 1994 Constitutional general appearance Overall: in no acute distress 10/03/2017 None Full Exam - General 1994 Constitutional general appearance Overall: well nourished 10/03/2017 None Full Exam - General 1994 Eyes conjunctiva /eyelids Overall: conjunctiva clear 10/03/2017 None Full Exam - General 1994 Eyes conjunctiva /eyelids Overall: cornea clear 10/03/2017 None Full Exam - General 1994 Eyes conjunctiva /eyelids Overall: eyelids normal 10/03/2017 None Full Exam - General 1994 Eyes pupils and irises Overall: pupils equal, round, reactive to light and accomodation 10/03/2017 None Full Exam - General 1994 Ears/Nose/Throat external ear Overall: normal appearance 10/03/2017 None Full Exam - General 1994 Ears/Nose/Throat external ear Overall: normal mastoids 10/03/2017 None Full Exam - General 1994 Ears/Nose/Throat external nose Overall: benign appearance 10/03/2017 None Full Exam - General 1994 Ears/Nose/Throat otoscopic exam Tympanic membrane: a normal exam 10/03/2017 None Full Exam - General 1994 Ears/Nose/Throat otoscopic exam Tympanic membrane: tympanosclerosis 10/03/2017 None Full Exam - General 1994 Ears/Nose/Throat internal nose Overall: bilateral nasal cavities clear 10/03/2017 None Full Exam - General 1994 Ears/Nose/Throat lips/teeth/gingiva Lips: chancre 10/03/2017 None Full Exam - General 1994 Ears/Nose/Throat oral cavity/pharynx/larynx Overall: oral mucosa clear 10/03/2017 None Full Exam - General 1994 Ears/Nose/Throat oral cavity/pharynx/larynx Overall: mobile tongue benign 10/03/2017 None Full Exam - General 1994 Ears/Nose/Throat oral cavity/pharynx/larynx Oral mucosa: moist 10/03/2017 None Full Exam - General 1994 Respiratory auscultation Overall: breath sounds clear bilaterally 10/03/2017 None Full Exam - General 1994 Respiratory respiratory effort/rhythm Overall: no retractions 10/03/2017 None Full Exam - General 1994 Respiratory respiratory effort/rhythm Overall: normal rate 10/03/2017 None Full Exam - General 1994 Cardiovascular inspection of carotid pulses Carotid pulse: carotid bruit 10/03/2017 None Full Exam - General 1994 Cardiovascular extremities Overall: no clubbing 10/03/2017 None Full Exam - General 1994 Cardiovascular extremities Edema present: non-pitting 10/03/2017 faint nonpitting edema bilateral LE Full Exam - General 1994 Cardiovascular auscultation of heart Rate: regular rate 10/03/2017 None Full Exam - General 1994 Cardiovascular auscultation of heart Rhythm: regular rhythm 10/03/2017 None Full Exam - General 1994 Cardiovascular auscultation of heart Systolic murmur grade: II/ 10/03/2017 very faint - best heart at upper right sternal border Full Exam - General 1994 Abdomen abdominal exam Overall: no tenderness 10/03/2017 None Full Exam - General 1994 Abdomen abdominal exam Overall: normal bowel sounds 10/03/2017 None Full Exam - General 1994 Abdomen abdominal exam Periumbilical: non-tender to palpation 10/03/2017 umbilical hernia Full Exam - General 1994 Abdomen liver and spleen exam Overall: no hepatosplenomegaly 10/03/2017 None Full Exam - General 1994 Abdomen liver and spleen exam Overall: no stigmata of chronic liver disease 10/03/2017 None Full Exam - General 1994 Musculoskeletal digits and nails Nails: a normal exam 10/03/2017 None Full Exam - General 1994 Musculoskeletal digits and nails DIPs: first 10/03/2017 ulnar deviation of the DIP Full Exam - General 1994 Musculoskeletal digits and nails DIPs: second 10/03/2017 ulnar deviation of DIP Full Exam - General 1994 Musculoskeletal digits and nails DIPs: nodule 10/03/2017 None Full Exam - General 1994 Musculoskeletal digits and nails DIPs: deformity 10/03/2017 None Full Exam - General 1994 Musculoskeletal digits and nails DIPs: decreased flexion 10/03/2017 None Full Exam - General 1994 Musculoskeletal digits and nails DIPs: decreased extension 10/03/2017 None Full Exam - General 1994 Musculoskeletal digits and nails Deformities/Nodules: heberden's node 10/03/2017 None Full Exam - General 1994 Musculoskeletal spine, ribs and pelvis Posture: kyphosis 10/03/2017 very mild kyphosis Full Exam - General 1994 Musculoskeletal head and neck Overall: head atraumatic 10/03/2017 None Full Exam - General 1994 Musculoskeletal head and neck Overall: cervical spine benign 10/03/2017 None Full Exam - General 1994 Neurologic deep tendon reflexes Overall: deep tendon reflexes intact 10/03/2017 None Full Exam - General 1994 Neurologic gait Overall: no ataxia, no unsteadiness 10/03/2017 None Full Exam - General 1994 Neurologic cranial nerves Overall: crainial nerves 2 - 12 grossly intact 10/03/2017 None Full Exam - General 1994 Psychiatric orientation/consciousness Overall: oriented to person, place and time 10/03/2017 None Full Exam - General 1994 Psychiatric mood and affect Overall: normal mood and affect 10/03/2017 None Full Exam - General 1994 Psychiatric mood and affect Mood: happy 10/03/2017 None Full Exam - General 1994 Psychiatric appearance Overall: well-groomed, good eye contact 10/03/2017 None Full Exam - General 1994 Psychiatric speech Overall: normal quality, quantity, rate 10/03/2017 None Full Exam - General 1994 Constitutional general appearance Overall: well developed 09/19/2017 None Full Exam - General 1994 Constitutional general appearance Overall: in no acute distress 09/19/2017 None Full Exam - General 1994 Constitutional general appearance Overall: well nourished 09/19/2017 None Full Exam - General 1994 Eyes conjunctiva /eyelids Overall: conjunctiva clear 09/19/2017 None Full Exam - General 1994 Eyes conjunctiva /eyelids Overall: cornea clear 09/19/2017 None Full Exam - General 1994 Eyes conjunctiva /eyelids Overall: eyelids normal 09/19/2017 None Full Exam - General 1994 Eyes pupils and irises Overall: pupils equal, round, reactive to light and accomodation 09/19/2017 None Full Exam - General 1994 Ears/Nose/Throat lips/teeth/gingiva Overall: benign lips 09/19/2017 None Full Exam - General 1994 Ears/Nose/Throat oral cavity/pharynx/larynx Overall: oral mucosa clear 09/19/2017 None Full Exam - General 1994 Ears/Nose/Throat oral cavity/pharynx/larynx Oral mucosa: moist 09/19/2017 None Full Exam - General 1994 Respiratory auscultation Overall: breath sounds clear bilaterally 09/19/2017 None Full Exam - General 1994 Respiratory respiratory effort/rhythm Overall: no retractions 09/19/2017 None Full Exam - General 1994 Respiratory respiratory effort/rhythm Overall: normal rate 09/19/2017 None Full Exam - General 1994 Cardiovascular auscultation of heart Rate: regular rate 09/19/2017 None Full Exam - General 1994 Cardiovascular auscultation of heart Rhythm: regular rhythm 09/19/2017 None Full Exam - General 1994 Cardiovascular auscultation of heart Systolic murmur grade: II/ 09/19/2017 very faint - best heart at upper right sternal border Full Exam - General 1994 Psychiatric orientation/consciousness Overall: oriented to person, place and time 09/19/2017 None Full Exam - General 1994 Psychiatric mood and affect Overall: normal mood and affect 09/19/2017 None Full Exam - General 1994 Psychiatric mood and affect Mood: happy 09/19/2017 None Full Exam - General 1994 Psychiatric appearance Overall: well-groomed, good eye contact 09/19/2017 None Full Exam - General 1994 Psychiatric speech Overall: normal quality, quantity, rate 09/19/2017 None Full Exam - General 1994 Musculoskeletal head and neck Overall: head atraumatic 09/19/2017 None Full Exam - General 1994 Abdomen abdominal exam Overall: no tenderness 09/19/2017 None Full Exam - General 1994 Abdomen abdominal exam Overall: normal bowel sounds 09/19/2017 None Full Exam - General 1994 Constitutional general appearance Overall: well developed 07/06/2017 None Full Exam - General 1994 Constitutional general appearance Overall: in no acute distress 07/06/2017 None Full Exam - General 1994 Constitutional general appearance Overall: well nourished 07/06/2017 None Full Exam - General 1994 Eyes conjunctiva /eyelids Overall: conjunctiva clear 07/06/2017 None Full Exam - General 1994 Eyes conjunctiva /eyelids Overall: cornea clear 07/06/2017 None Full Exam - General 1994 Eyes conjunctiva /eyelids Overall: eyelids normal 07/06/2017 None Full Exam - General 1994 Eyes pupils and irises Overall: pupils equal, round, reactive to light and accomodation 07/06/2017 None Full Exam - General 1994 Ears/Nose/Throat external ear Overall: normal appearance 07/06/2017 None Full Exam - General 1994 Ears/Nose/Throat external ear Overall: normal mastoids 07/06/2017 None Full Exam - General 1994 Ears/Nose/Throat external nose Overall: benign appearance 07/06/2017 None Full Exam - General 1994 Ears/Nose/Throat otoscopic exam Tympanic membrane: a normal exam 07/06/2017 None Full Exam - General 1994 Ears/Nose/Throat otoscopic exam Tympanic membrane: tympanosclerosis 07/06/2017 None Full Exam - General 1994 Ears/Nose/Throat internal nose Overall: bilateral nasal cavities clear 07/06/2017 None Full Exam - General 1994 Ears/Nose/Throat lips/teeth/gingiva Lips: chancre 07/06/2017 None Full Exam - General 1994 Ears/Nose/Throat oral cavity/pharynx/larynx Overall: oral mucosa clear 07/06/2017 None Full Exam - General 1994 Ears/Nose/Throat oral cavity/pharynx/larynx Overall: mobile tongue benign 07/06/2017 None Full Exam - General 1994 Ears/Nose/Throat oral cavity/pharynx/larynx Oral mucosa: moist 07/06/2017 None Full Exam - General 1994 Respiratory auscultation Overall: breath sounds clear bilaterally 07/06/2017 None Full Exam - General 1994 Respiratory respiratory effort/rhythm Overall: no retractions 07/06/2017 None Full Exam - General 1994 Respiratory respiratory effort/rhythm Overall: normal rate 07/06/2017 None Full Exam - General 1994 Cardiovascular inspection of carotid pulses Carotid pulse: carotid bruit 07/06/2017 None Full Exam - General 1994 Cardiovascular extremities Overall: no clubbing 07/06/2017 None Full Exam - General 1994 Cardiovascular extremities Edema present: non-pitting 07/06/2017 faint nonpitting edema bilateral LE Full Exam - General 1994 Cardiovascular auscultation of heart Rate: regular rate 07/06/2017 None Full Exam - General 1994 Cardiovascular auscultation of heart Rhythm: regular rhythm 07/06/2017 None Full Exam - General 1994 Cardiovascular auscultation of heart Systolic murmur grade: II/ 07/06/2017 very faint - best heart at upper right sternal border Full Exam - General 1994 Abdomen abdominal exam Overall: no tenderness 07/06/2017 None Full Exam - General 1994 Abdomen abdominal exam Overall: normal bowel sounds 07/06/2017 None Full Exam - General 1994 Abdomen abdominal exam Periumbilical: non-tender to palpation 07/06/2017 umbilical hernia Full Exam - General 1994 Abdomen liver and spleen exam Overall: no hepatosplenomegaly 07/06/2017 None Full Exam - General 1994 Abdomen liver and spleen exam Overall: no stigmata of chronic liver disease 07/06/2017 None Full Exam - General 1994 Musculoskeletal digits and nails Nails: a normal exam 07/06/2017 None Full Exam - General 1994 Musculoskeletal spine, ribs and pelvis Posture: kyphosis 07/06/2017 very mild kyphosis Full Exam - General 1994 Musculoskeletal head and neck Overall: head atraumatic 07/06/2017 None Full Exam - General 1994 Musculoskeletal head and neck Overall: cervical spine benign 07/06/2017 None Full Exam - General 1994 Neurologic deep tendon reflexes Overall: deep tendon reflexes intact 07/06/2017 None Full Exam - General 1994 Neurologic gait Overall: no ataxia, no unsteadiness 07/06/2017 None Full Exam - General 1995 Neurologic cranial nerves Overall: crainial nerves 2 - 12 grossly intact 07/06/2017 None Full Exam - General 1994 Psychiatric orientation/consciousness Overall: oriented to person, place and time 07/06/2017 None Full Exam - General 1994 Psychiatric mood and affect Overall: normal mood and affect 07/06/2017 None Full Exam - General 1994 Psychiatric mood and affect Mood: happy 07/06/2017 None Full Exam - General 1994 Psychiatric appearance Overall: well-groomed, good eye contact 07/06/2017 None Full Exam - General 1994 Psychiatric speech Overall: normal quality, quantity, rate 07/06/2017 None Full Exam - General 1994 Musculoskeletal digits and nails Deformities/Nodules: heberden's node 07/06/2017 None Full Exam - General 1994 Musculoskeletal digits and nails DIPs: first 07/06/2017 ulnar deviation of the DIP Full Exam - General 1994 Musculoskeletal digits and nails DIPs: second 07/06/2017 ulnar deviation of DIP Full Exam - General 1994 Musculoskeletal digits and nails DIPs: nodule 07/06/2017 None Full Exam - General 1994 Musculoskeletal digits and nails DIPs: deformity 07/06/2017 None Full Exam - General 1994 Musculoskeletal digits and nails DIPs: decreased flexion 07/06/2017 None Full Exam - General 1994 Musculoskeletal digits and nails DIPs: decreased extension 07/06/2017 None Full Exam - General 1994 Constitutional general appearance Overall: well developed 04/04/2017 None Full Exam - General 1994 Constitutional general appearance Overall: in no acute distress 04/04/2017 None Full Exam - General 1994 Constitutional general appearance Overall: well nourished 04/04/2017 None Full Exam - General 1994 Eyes conjunctiva /eyelids Overall: conjunctiva clear 04/04/2017 None Full Exam - General 1994 Eyes conjunctiva /eyelids Overall: cornea clear 04/04/2017 None Full Exam - General 1994 Eyes conjunctiva /eyelids Overall: eyelids normal 04/04/2017 None Full Exam - General 1994 Eyes pupils and irises Overall: pupils equal, round, reactive to light and accomodation 04/04/2017 None Full Exam - General 1994 Ears/Nose/Throat oral cavity/pharynx/larynx Overall: oral mucosa clear 04/04/2017 None Full Exam - General 1994 Ears/Nose/Throat oral cavity/pharynx/larynx Overall: mobile tongue benign 04/04/2017 None Full Exam - General 1994 Ears/Nose/Throat oral cavity/pharynx/larynx Oral mucosa: moist 04/04/2017 None Full Exam - General 1994 Respiratory auscultation Overall: breath sounds clear bilaterally 04/04/2017 None Full Exam - General 1994 Respiratory respiratory effort/rhythm Overall: no retractions 04/04/2017 None Full Exam - General 1994 Respiratory respiratory effort/rhythm Overall: normal rate 04/04/2017 None Full Exam - General 1994 Cardiovascular auscultation of heart Rate: regular rate 04/04/2017 None Full Exam - General 1994 Cardiovascular auscultation of heart Rhythm: regular rhythm 04/04/2017 None Full Exam - General 1994 Cardiovascular auscultation of heart Systolic murmur grade: II/ 04/04/2017 very faint - best heart at upper right sternal border Full Exam - General 1994 Integument inspection of skin Dermatitis: dryness/ flaking 04/04/2017 over left flank/hip large lesion - 5 cm x 4 cm lesion Full Exam - General 1994 Psychiatric orientation/consciousness Overall: oriented to person, place and time 04/04/2017 None Full Exam - General 1994 Psychiatric mood and affect Overall: normal mood and affect 04/04/2017 None Full Exam - General 1994 Psychiatric mood and affect Mood: happy 04/04/2017 None Full Exam - General 1994 Psychiatric appearance Overall: well-groomed, good eye contact 04/04/2017 None Full Exam - General 1994 Psychiatric speech Overall: normal quality, quantity, rate 04/04/2017 None Full Exam - General 1994 Integument inspection of skin Dermatitis: erythema 04/04/2017 None Full Exam - General 1994 Ears/Nose/Throat lips/teeth/gingiva Overall: benign lips 04/04/2017 None Full Exam - General 1994 Constitutional general appearance Overall: well developed 02/28/2017 None Full Exam - General 1994 Constitutional general appearance Overall: in no acute distress 02/28/2017 None Full Exam - General 1994 Constitutional general appearance Overall: well nourished 02/28/2017 None Full Exam - General 1994 Eyes conjunctiva /eyelids Overall: conjunctiva clear 02/28/2017 None Full Exam - General 1994 Eyes conjunctiva /eyelids Overall: cornea clear 02/28/2017 None Full Exam - General 1994 Eyes conjunctiva /eyelids Overall: eyelids normal 02/28/2017 None Full Exam - General 1994 Eyes pupils and irises Overall: pupils equal, round, reactive to light and accomodation 02/28/2017 None Full Exam - General 1994 Ears/Nose/Throat external ear Overall: normal appearance 02/28/2017 None Full Exam - General 1994 Ears/Nose/Throat external ear Overall: normal mastoids 02/28/2017 None Full Exam - General 1994 Ears/Nose/Throat external nose Overall: benign appearance 02/28/2017 None Full Exam - General 1994 Ears/Nose/Throat otoscopic exam Tympanic membrane: a normal exam 02/28/2017 None Full Exam - General 1994 Ears/Nose/Throat otoscopic exam Tympanic membrane: tympanosclerosis 02/28/2017 None Full Exam - General 1994 Ears/Nose/Throat internal nose Overall: bilateral nasal cavities clear 02/28/2017 None Full Exam - General 1994 Ears/Nose/Throat oral cavity/pharynx/larynx Overall: oral mucosa clear 02/28/2017 None Full Exam - General 1994 Ears/Nose/Throat oral cavity/pharynx/larynx Overall: mobile tongue benign 02/28/2017 None Full Exam - General 1994 Ears/Nose/Throat oral cavity/pharynx/larynx Oral mucosa: moist 02/28/2017 None Full Exam - General 1994 Respiratory auscultation Overall: breath sounds clear bilaterally 02/28/2017 None Full Exam - General 1994 Respiratory respiratory effort/rhythm Overall: no retractions 02/28/2017 None Full Exam - General 1994 Respiratory respiratory effort/rhythm Overall: normal rate 02/28/2017 None Full Exam - General 1994 Cardiovascular inspection of carotid pulses Carotid pulse: carotid bruit 02/28/2017 None Full Exam - General 1994 Cardiovascular extremities Overall: no clubbing 02/28/2017 None Full Exam - General 1994 Cardiovascular extremities Edema present: non-pitting 02/28/2017 faint nonpitting edema bilateral LE Full Exam - General 1994 Cardiovascular auscultation of heart Rate: regular rate 02/28/2017 None Full Exam - General 1994 Cardiovascular auscultation of heart Rhythm: regular rhythm 02/28/2017 None Full Exam - General 1994 Cardiovascular auscultation of heart Systolic murmur grade: II/ 02/28/2017 very faint - best heart at upper right sternal border Full Exam - General 1994 Abdomen abdominal exam Overall: no tenderness 02/28/2017 None Full Exam - General 1994 Abdomen abdominal exam Overall: normal bowel sounds 02/28/2017 None Full Exam - General 1994 Abdomen abdominal exam Periumbilical: non-tender to palpation 02/28/2017 umbilical hernia Full Exam - General 1994 Abdomen liver and spleen exam Overall: no hepatosplenomegaly 02/28/2017 None Full Exam - General 1994 Abdomen liver and spleen exam Overall: no stigmata of chronic liver disease 02/28/2017 None Full Exam - General 1994 Musculoskeletal digits and nails Nails: a normal exam 02/28/2017 None Full Exam - General 1994 Musculoskeletal digits and nails DIPs: first 02/28/2017 ulnar deviation of the DIP Full Exam - General 1994 Musculoskeletal digits and nails DIPs: second 02/28/2017 ulnar deviation of DIP Full Exam - General 1994 Musculoskeletal digits and nails DIPs: nodule 02/28/2017 None Full Exam - General 1994 Musculoskeletal digits and nails DIPs: deformity 02/28/2017 None Full Exam - General 1994 Musculoskeletal digits and nails DIPs: decreased flexion 02/28/2017 None Full Exam - General 1994 Musculoskeletal digits and nails DIPs: decreased extension 02/28/2017 None Full Exam - General 1994 Musculoskeletal digits and nails Deformities/Nodules: heberden's node 02/28/2017 None Full Exam - General 1994 Musculoskeletal spine, ribs and pelvis Posture: kyphosis 02/28/2017 very mild kyphosis Full Exam - General 1994 Musculoskeletal head and neck Overall: head atraumatic 02/28/2017 None Full Exam - General 1994 Musculoskeletal head and neck Overall: cervical spine benign 02/28/2017 None Full Exam - General 1994 Integument inspection of skin Dermatitis: erythema 02/28/2017 None Full Exam - General 1994 Integument inspection of skin Dermatitis: dryness/ flaking 02/28/2017 over left flank/hip large lesion - 5 cm x 4 cm lesion Full Exam - General 1994 Neurologic deep tendon reflexes Overall: deep tendon reflexes intact 02/28/2017 None Full Exam - General 1994 Neurologic gait Overall: no ataxia, no unsteadiness 02/28/2017 None Full Exam - General 1994 Neurologic cranial nerves Overall: crainial nerves 2 - 12 grossly intact 02/28/2017 None Full Exam - General 1994 Psychiatric orientation/consciousness Overall: oriented to person, place and time 02/28/2017 None Full Exam - General 1994 Psychiatric mood and affect Overall: normal mood and affect 02/28/2017 None Full Exam - General 1994 Psychiatric mood and affect Mood: happy 02/28/2017 None Full Exam - General 1994 Psychiatric appearance Overall: well-groomed, good eye contact 02/28/2017 None Full Exam - General 1994 Psychiatric speech Overall: normal quality, quantity, rate 02/28/2017 None Full Exam - General 1994 Ears/Nose/Throat lips/teeth/gingiva Lips: chancre 02/28/2017 None Full Exam - General 1994 Constitutional general appearance Overall: well developed 11/29/2016 None Full Exam - General 1994 Constitutional general appearance Overall: in no acute distress 11/29/2016 None Full Exam - General 1994 Constitutional general appearance Overall: well nourished 11/29/2016 None Full Exam - General 1994 Eyes conjunctiva /eyelids Overall: conjunctiva clear 11/29/2016 None Full Exam - General 1994 Eyes conjunctiva /eyelids Overall: cornea clear 11/29/2016 None Full Exam - General 1994 Eyes conjunctiva /eyelids Overall: eyelids normal 11/29/2016 None Full Exam - General 1994 Eyes pupils and irises Overall: pupils equal, round, reactive to light and accomodation 11/29/2016 None Full Exam - General 1994 Ears/Nose/Throat external ear Overall: normal appearance 11/29/2016 None Full Exam - General 1994 Ears/Nose/Throat external ear Overall: normal mastoids 11/29/2016 None Full Exam - General 1994 Ears/Nose/Throat external nose Overall: benign appearance 11/29/2016 None Full Exam - General 1994 Ears/Nose/Throat otoscopic exam Tympanic membrane: a normal exam 11/29/2016 None Full Exam - General 1994 Ears/Nose/Throat otoscopic exam Tympanic membrane: tympanosclerosis 11/29/2016 None Full Exam - General 1994 Ears/Nose/Throat internal nose Overall: bilateral nasal cavities clear 11/29/2016 None Full Exam - General 1994 Ears/Nose/Throat lips/teeth/gingiva Overall: benign lips 11/29/2016 None Full Exam - General 1994 Ears/Nose/Throat oral cavity/pharynx/larynx Overall: oral mucosa clear 11/29/2016 None Full Exam - General 1994 Ears/Nose/Throat oral cavity/pharynx/larynx Overall: mobile tongue benign 11/29/2016 None Full Exam - General 1994 Ears/Nose/Throat oral cavity/pharynx/larynx Oral mucosa: moist 11/29/2016 None Full Exam - General 1994 Respiratory auscultation Overall: breath sounds clear bilaterally 11/29/2016 None Full Exam - General 1994 Respiratory respiratory effort/rhythm Overall: no retractions 11/29/2016 None Full Exam - General 1994 Respiratory respiratory effort/rhythm Overall: normal rate 11/29/2016 None Full Exam - General 1994 Cardiovascular inspection of carotid pulses Carotid pulse: carotid bruit 11/29/2016 None Full Exam - General 1994 Cardiovascular extremities Overall: no clubbing 11/29/2016 None Full Exam - General 1994 Cardiovascular extremities Edema present: non-pitting 11/29/2016 faint nonpitting edema bilateral LE Full Exam - General 1994 Cardiovascular auscultation of heart Rate: regular rate 11/29/2016 None Full Exam - General 1994 Cardiovascular auscultation of heart Rhythm: regular rhythm 11/29/2016 None Full Exam - General 1994 Cardiovascular auscultation of heart Systolic murmur grade: II/ 11/29/2016 very faint - best heart at upper right sternal border Full Exam - General 1994 Abdomen abdominal exam Overall: no tenderness 11/29/2016 None Full Exam - General 1994 Abdomen abdominal exam Overall: normal bowel sounds 11/29/2016 None Full Exam - General 1994 Abdomen abdominal exam Periumbilical: non-tender to palpation 11/29/2016 umbilical hernia Full Exam - General 1994 Abdomen liver and spleen exam Overall: no hepatosplenomegaly 11/29/2016 None Full Exam - General 1994 Abdomen liver and spleen exam Overall: no stigmata of chronic liver disease 11/29/2016 None Full Exam - General 1994 Musculoskeletal digits and nails Nails: a normal exam 11/29/2016 None Full Exam - General 1994 Musculoskeletal digits and nails DIPs: first 11/29/2016 ulnar deviation of the DIP Full Exam - General 1994 Musculoskeletal digits and nails DIPs: second 11/29/2016 ulnar deviation of DIP Full Exam - General 1994 Musculoskeletal digits and nails DIPs: nodule 11/29/2016 None Full Exam - General 1994 Musculoskeletal digits and nails DIPs: deformity 11/29/2016 None Full Exam - General 1994 Musculoskeletal digits and nails DIPs: decreased flexion 11/29/2016 None Full Exam - General 1994 Musculoskeletal digits and nails DIPs: decreased extension 11/29/2016 None Full Exam - General 1994 Musculoskeletal digits and nails Deformities/Nodules: heberden's node 11/29/2016 None Full Exam - General 1994 Musculoskeletal spine, ribs and pelvis Posture: kyphosis 11/29/2016 very mild kyphosis Full Exam - General 1994 Musculoskeletal head and neck Overall: head atraumatic 11/29/2016 None Full Exam - General 1994 Musculoskeletal head and neck Overall: cervical spine benign 11/29/2016 None Full Exam - General 1994 Integument inspection of skin Dermatitis: erythema 11/29/2016 None Full Exam - General 1994 Integument inspection of skin Dermatitis: dryness/ flaking 11/29/2016 over left flank/hip large lesion - 5 cm x 4 cm lesion Full Exam - General 1994 Neurologic deep tendon reflexes Overall: deep tendon reflexes intact 11/29/2016 None Full Exam - General 1994 Neurologic gait Overall: no ataxia, no unsteadiness 11/29/2016 None Full Exam - General 1994 Neurologic cranial nerves Overall: crainial nerves 2 - 12 grossly intact 11/29/2016 None Full Exam - General 1994 Psychiatric orientation/consciousness Overall: oriented to person, place and time 11/29/2016 None Full Exam - General 1994 Psychiatric mood and affect Overall: normal mood and affect 11/29/2016 None Full Exam - General 1994 Psychiatric mood and affect Mood: happy 11/29/2016 None Full Exam - General 1994 Psychiatric appearance Overall: well-groomed, good eye contact 11/29/2016 None Full Exam - General 1994 Psychiatric speech Overall: normal quality, quantity, rate 11/29/2016 None Full Exam - General 1994 Constitutional general appearance Overall: well developed 11/02/2016 None Full Exam - General 1994 Constitutional general appearance Overall: in no acute distress 11/02/2016 None Full Exam - General 1994 Constitutional general appearance Overall: well nourished 11/02/2016 None Full Exam - General 1994 Eyes conjunctiva /eyelids Overall: conjunctiva clear 11/02/2016 None Full Exam - General 1994 Eyes conjunctiva /eyelids Overall: cornea clear 11/02/2016 None Full Exam - General 1994 Eyes conjunctiva /eyelids Overall: eyelids normal 11/02/2016 None Full Exam - General 1994 Eyes pupils and irises Overall: pupils equal, round, reactive to light and accomodation 11/02/2016 None Full Exam - General 1994 Ears/Nose/Throat external ear Overall: normal appearance 11/02/2016 None Full Exam - General 1994 Ears/Nose/Throat external ear Overall: normal mastoids 11/02/2016 None Full Exam - General 1994 Ears/Nose/Throat external nose Overall: benign appearance 11/02/2016 None Full Exam - General 1994 Ears/Nose/Throat otoscopic exam Tympanic membrane: a normal exam 11/02/2016 None Full Exam - General 1994 Ears/Nose/Throat otoscopic exam Tympanic membrane: tympanosclerosis 11/02/2016 None Full Exam - General 1994 Ears/Nose/Throat internal nose Overall: bilateral nasal cavities clear 11/02/2016 None Full Exam - General 1994 Ears/Nose/Throat lips/teeth/gingiva Overall: benign lips 11/02/2016 None Full Exam - General 1994 Ears/Nose/Throat oral cavity/pharynx/larynx Overall: oral mucosa clear 11/02/2016 None Full Exam - General 1994 Ears/Nose/Throat oral cavity/pharynx/larynx Overall: mobile tongue benign 11/02/2016 None Full Exam - General 1994 Ears/Nose/Throat oral cavity/pharynx/larynx Oral mucosa: moist 11/02/2016 None Full Exam - General 1994 Respiratory auscultation Overall: breath sounds clear bilaterally 11/02/2016 None Full Exam - General 1994 Respiratory respiratory effort/rhythm Overall: no retractions 11/02/2016 None Full Exam - General 1994 Respiratory respiratory effort/rhythm Overall: normal rate 11/02/2016 None Full Exam - General 1994 Cardiovascular inspection of carotid pulses Carotid pulse: carotid bruit 11/02/2016 None Full Exam - General 1994 Cardiovascular extremities Overall: no clubbing 11/02/2016 None Full Exam - General 1994 Cardiovascular extremities Edema present: non-pitting 11/02/2016 faint nonpitting edema bilateral LE Full Exam - General 1994 Cardiovascular auscultation of heart Rate: regular rate 11/02/2016 None Full Exam - General 1994 Cardiovascular auscultation of heart Rhythm: regular rhythm 11/02/2016 None Full Exam - General 1994 Cardiovascular auscultation of heart Systolic murmur grade: II/ 11/02/2016 very faint - best heart at upper right sternal border Full Exam - General 1994 Abdomen abdominal exam Overall: no tenderness 11/02/2016 None Full Exam - General 1994 Abdomen abdominal exam Overall: normal bowel sounds 11/02/2016 None Full Exam - General 1994 Abdomen abdominal exam Periumbilical: non-tender to palpation 11/02/2016 umbilical hernia Full Exam - General 1994 Abdomen liver and spleen exam Overall: no hepatosplenomegaly 11/02/2016 None Full Exam - General 1994 Abdomen liver and spleen exam Overall: no stigmata of chronic liver disease 11/02/2016 None Full Exam - General 1994 Musculoskeletal digits and nails Nails: a normal exam 11/02/2016 None Full Exam - General 1994 Musculoskeletal digits and nails DIPs: first 11/02/2016 ulnar deviation of the DIP Full Exam - General 1994 Musculoskeletal digits and nails DIPs: second 11/02/2016 ulnar deviation of DIP Full Exam - General 1994 Musculoskeletal digits and nails DIPs: nodule 11/02/2016 None Full Exam - General 1994 Musculoskeletal digits and nails DIPs: deformity 11/02/2016 None Full Exam - General 1994 Musculoskeletal digits and nails DIPs: decreased flexion 11/02/2016 None Full Exam - General 1994 Musculoskeletal digits and nails DIPs: decreased extension 11/02/2016 None Full Exam - General 1994 Musculoskeletal digits and nails Deformities/Nodules: heberden's node 11/02/2016 None Full Exam - General 1994 Musculoskeletal spine, ribs and pelvis Posture: kyphosis 11/02/2016 very mild kyphosis Full Exam - General 1994 Musculoskeletal head and neck Overall: head atraumatic 11/02/2016 None Full Exam - General 1994 Musculoskeletal head and neck Overall: cervical spine benign 11/02/2016 None Full Exam - General 1994 Integument inspection of skin Dermatitis: erythema 11/02/2016 None Full Exam - General 1994 Neurologic deep tendon reflexes Overall: deep tendon reflexes intact 11/02/2016 None Full Exam - General 1994 Neurologic gait Overall: no ataxia, no unsteadiness 11/02/2016 None Full Exam - General 1994 Neurologic cranial nerves Overall: crainial nerves 2 - 12 grossly intact 11/02/2016 None Full Exam - General 1994 Psychiatric orientation/consciousness Overall: oriented to person, place and time 11/02/2016 None Full Exam - General 1994 Psychiatric mood and affect Overall: normal mood and affect 11/02/2016 None Full Exam - General 1994 Psychiatric mood and affect Mood: happy 11/02/2016 None Full Exam - General 1994 Psychiatric appearance Overall: well-groomed, good eye contact 11/02/2016 None Full Exam - General 1994 Psychiatric speech Overall: normal quality, quantity, rate 11/02/2016 None Full Exam - General 1994 Integument inspection of skin Dermatitis: dryness/ flaking 11/02/2016 over left flank/hip large lesion - 5 cm x 4 cm lesion Full Exam - General 1994 Constitutional general appearance Overall: well developed 08/30/2016 None Full Exam - General 1994 Constitutional general appearance Overall: in no acute distress 08/30/2016 None Full Exam - General 1994 Constitutional general appearance Overall: well nourished 08/30/2016 None Full Exam - General 1994 Eyes conjunctiva /eyelids Overall: conjunctiva clear 08/30/2016 None Full Exam - General 1994 Eyes conjunctiva /eyelids Overall: cornea clear 08/30/2016 None Full Exam - General 1994 Eyes conjunctiva /eyelids Overall: eyelids normal 08/30/2016 None Full Exam - General 1994 Eyes pupils and irises Overall: pupils equal, round, reactive to light and accomodation 08/30/2016 None Full Exam - General 1994 Ears/Nose/Throat external ear Overall: normal appearance 08/30/2016 None Full Exam - General 1994 Ears/Nose/Throat external ear Overall: normal mastoids 08/30/2016 None Full Exam - General 1994 Ears/Nose/Throat external nose Overall: benign appearance 08/30/2016 None Full Exam - General 1994 Ears/Nose/Throat otoscopic exam Tympanic membrane: a normal exam 08/30/2016 None Full Exam - General 1994 Ears/Nose/Throat otoscopic exam Tympanic membrane: tympanosclerosis 08/30/2016 None Full Exam - General 1994 Ears/Nose/Throat internal nose Overall: bilateral nasal cavities clear 08/30/2016 None Full Exam - General 1994 Ears/Nose/Throat lips/teeth/gingiva Overall: benign lips 08/30/2016 None Full Exam - General 1994 Ears/Nose/Throat oral cavity/pharynx/larynx Overall: oral mucosa clear 08/30/2016 None Full Exam - General 1994 Ears/Nose/Throat oral cavity/pharynx/larynx Overall: mobile tongue benign 08/30/2016 None Full Exam - General 1994 Ears/Nose/Throat oral cavity/pharynx/larynx Oral mucosa: moist 08/30/2016 None Full Exam - General 1994 Respiratory auscultation Overall: breath sounds clear bilaterally 08/30/2016 None Full Exam - General 1994 Respiratory respiratory effort/rhythm Overall: no retractions 08/30/2016 None Full Exam - General 1994 Respiratory respiratory effort/rhythm Overall: normal rate 08/30/2016 None Full Exam - General 1994 Cardiovascular inspection of carotid pulses Carotid pulse: carotid bruit 08/30/2016 None Full Exam - General 1994 Cardiovascular extremities Overall: no clubbing 08/30/2016 None Full Exam - General 1994 Cardiovascular extremities Edema present: non-pitting 08/30/2016 faint nonpitting edema bilateral LE Full Exam - General 1994 Cardiovascular auscultation of heart Rate: regular rate 08/30/2016 None Full Exam - General 1994 Cardiovascular auscultation of heart Rhythm: regular rhythm 08/30/2016 None Full Exam - General 1994 Cardiovascular auscultation of heart Systolic murmur grade: II/ 08/30/2016 very faint - best heart at upper right sternal border Full Exam - General 1994 Abdomen abdominal exam Overall: no tenderness 08/30/2016 None Full Exam - General 1994 Abdomen abdominal exam Overall: normal bowel sounds 08/30/2016 None Full Exam - General 1994 Abdomen abdominal exam Periumbilical: non-tender to palpation 08/30/2016 umbilical hernia Full Exam - General 1994 Abdomen liver and spleen exam Overall: no hepatosplenomegaly 08/30/2016 None Full Exam - General 1994 Abdomen liver and spleen exam Overall: no stigmata of chronic liver disease 08/30/2016 None Full Exam - General 1994 Musculoskeletal digits and nails Nails: a normal exam 08/30/2016 None Full Exam - General 1994 Musculoskeletal digits and nails DIPs: first 08/30/2016 ulnar deviation of the DIP Full Exam - General 1994 Musculoskeletal digits and nails DIPs: second 08/30/2016 ulnar deviation of DIP Full Exam - General 1994 Musculoskeletal digits and nails DIPs: nodule 08/30/2016 None Full Exam - General 1994 Musculoskeletal digits and nails DIPs: deformity 08/30/2016 None Full Exam - General 1994 Musculoskeletal digits and nails DIPs: decreased flexion 08/30/2016 None Full Exam - General 1994 Musculoskeletal digits and nails DIPs: decreased extension 08/30/2016 None Full Exam - General 1994 Musculoskeletal digits and nails Deformities/Nodules: heberden's node 08/30/2016 None Full Exam - General 1994 Musculoskeletal spine, ribs and pelvis Posture: kyphosis 08/30/2016 very mild kyphosis Full Exam - General 1994 Musculoskeletal head and neck Overall: head atraumatic 08/30/2016 None Full Exam - General 1994 Musculoskeletal head and neck Overall: cervical spine benign 08/30/2016 None Full Exam - General 1994 Integument inspection of skin Dermatitis: erythema 08/30/2016 None Full Exam - General 1994 Integument inspection of skin Dermatitis: dryness/ flaking 08/30/2016 over left flank/hip large lesion - 5 cm x 4 cm lesion Full Exam - General 1994 Neurologic deep tendon reflexes Overall: deep tendon reflexes intact 08/30/2016 None Full Exam - General 1994 Neurologic gait Overall: no ataxia, no unsteadiness 08/30/2016 None Full Exam - General 1994 Neurologic cranial nerves Overall: crainial nerves 2 - 12 grossly intact 08/30/2016 None Full Exam - General 1994 Psychiatric orientation/consciousness Overall: oriented to person, place and time 08/30/2016 None Full Exam - General 1994 Psychiatric mood and affect Overall: normal mood and affect 08/30/2016 None Full Exam - General 1994 Psychiatric mood and affect Mood: happy 08/30/2016 None Full Exam - General 1994 Psychiatric appearance Overall: well-groomed, good eye contact 08/30/2016 None Full Exam - General 1994 Psychiatric speech Overall: normal quality, quantity, rate 08/30/2016 None Full Exam - General 1994 Constitutional general appearance Overall: well developed 05/03/2016 None Full Exam - General 1994 Constitutional general appearance Overall: in no acute distress 05/03/2016 None Full Exam - General 1994 Constitutional general appearance Overall: well nourished 05/03/2016 None Full Exam - General 1994 Eyes conjunctiva /eyelids Overall: conjunctiva clear 05/03/2016 None Full Exam - General 1994 Eyes conjunctiva /eyelids Overall: cornea clear 05/03/2016 None Full Exam - General 1994 Eyes conjunctiva /eyelids Overall: eyelids normal 05/03/2016 None Full Exam - General 1994 Eyes pupils and irises Overall: pupils equal, round, reactive to light and accomodation 05/03/2016 None Full Exam - General 1994 Ears/Nose/Throat external ear Overall: normal appearance 05/03/2016 None Full Exam - General 1994 Ears/Nose/Throat external ear Overall: normal mastoids 05/03/2016 None Full Exam - General 1994 Ears/Nose/Throat external nose Overall: benign appearance 05/03/2016 None Full Exam - General 1994 Ears/Nose/Throat otoscopic exam Tympanic membrane: a normal exam 05/03/2016 None Full Exam - General 1994 Ears/Nose/Throat otoscopic exam Tympanic membrane: tympanosclerosis 05/03/2016 None Full Exam - General 1994 Ears/Nose/Throat internal nose Overall: bilateral nasal cavities clear 05/03/2016 None Full Exam - General 1994 Ears/Nose/Throat lips/teeth/gingiva Overall: benign lips 05/03/2016 None Full Exam - General 1994 Ears/Nose/Throat oral cavity/pharynx/larynx Overall: oral mucosa clear 05/03/2016 None Full Exam - General 1994 Ears/Nose/Throat oral cavity/pharynx/larynx Overall: mobile tongue benign 05/03/2016 None Full Exam - General 1994 Ears/Nose/Throat oral cavity/pharynx/larynx Oral mucosa: moist 05/03/2016 None Full Exam - General 1994 Respiratory auscultation Overall: breath sounds clear bilaterally 05/03/2016 None Full Exam - General 1994 Respiratory respiratory effort/rhythm Overall: no retractions 05/03/2016 None Full Exam - General 1994 Respiratory respiratory effort/rhythm Overall: normal rate 05/03/2016 None Full Exam - General 1994 Cardiovascular inspection of carotid pulses Carotid pulse: carotid bruit 05/03/2016 None Full Exam - General 1994 Cardiovascular extremities Overall: no clubbing 05/03/2016 None Full Exam - General 1994 Cardiovascular extremities Edema present: non-pitting 05/03/2016 faint nonpitting edema bilateral LE Full Exam - General 1994 Cardiovascular auscultation of heart Rate: regular rate 05/03/2016 None Full Exam - General 1994 Cardiovascular auscultation of heart Rhythm: regular rhythm 05/03/2016 None Full Exam - General 1994 Cardiovascular auscultation of heart Systolic murmur grade: II/ 05/03/2016 very faint - best heart at upper right sternal border Full Exam - General 1994 Abdomen abdominal exam Overall: no tenderness 05/03/2016 None Full Exam - General 1994 Abdomen abdominal exam Overall: normal bowel sounds 05/03/2016 None Full Exam - General 1994 Abdomen abdominal exam Periumbilical: non-tender to palpation 05/03/2016 umbilical hernia Full Exam - General 1994 Abdomen liver and spleen exam Overall: no hepatosplenomegaly 05/03/2016 None Full Exam - General 1994 Abdomen liver and spleen exam Overall: no stigmata of chronic liver disease 05/03/2016 None Full Exam - General 1994 Musculoskeletal digits and nails Nails: a normal exam 05/03/2016 None Full Exam - General 1994 Musculoskeletal digits and nails DIPs: first 05/03/2016 ulnar deviation of the DIP Full Exam - General 1994 Musculoskeletal digits and nails DIPs: second 05/03/2016 ulnar deviation of DIP Full Exam - General 1994 Musculoskeletal digits and nails DIPs: nodule 05/03/2016 None Full Exam - General 1994 Musculoskeletal digits and nails DIPs: deformity 05/03/2016 None Full Exam - General 1994 Musculoskeletal digits and nails DIPs: decreased flexion 05/03/2016 None Full Exam - General 1994 Musculoskeletal digits and nails DIPs: decreased extension 05/03/2016 None Full Exam - General 1994 Musculoskeletal digits and nails Deformities/Nodules: heberden's node 05/03/2016 None Full Exam - General 1994 Musculoskeletal spine, ribs and pelvis Posture: kyphosis 05/03/2016 very mild kyphosis Full Exam - General 1994 Musculoskeletal head and neck Overall: head atraumatic 05/03/2016 None Full Exam - General 1994 Musculoskeletal head and neck Overall: cervical spine benign 05/03/2016 None Full Exam - General 1994 Integument inspection of skin Dermatitis: erythema 05/03/2016 None Full Exam - General 1994 Integument inspection of skin Dermatitis: dryness/ flaking 05/03/2016 over left flank/hip large lesion - 5 cm x 4 cm lesion Full Exam - General 1994 Neurologic deep tendon reflexes Overall: deep tendon reflexes intact 05/03/2016 None Full Exam - General 1994 Neurologic gait Overall: no ataxia, no unsteadiness 05/03/2016 None Full Exam - General 1994 Neurologic cranial nerves Overall: crainial nerves 2 - 12 grossly intact 05/03/2016 None Full Exam - General 1994 Psychiatric orientation/consciousness Overall: oriented to person, place and time 05/03/2016 None Full Exam - General 1994 Psychiatric mood and affect Overall: normal mood and affect 05/03/2016 None Full Exam - General 1994 Psychiatric mood and affect Mood: happy 05/03/2016 None Full Exam - General 1994 Psychiatric appearance Overall: well-groomed, good eye contact 05/03/2016 None Full Exam - General 1994 Psychiatric speech Overall: normal quality, quantity, rate 05/03/2016 None Full Exam - General 1994 Constitutional general appearance Overall: well developed 02/02/2016 None Full Exam - General 1994 Constitutional general appearance Overall: in no acute distress 02/02/2016 None Full Exam - General 1994 Constitutional general appearance Overall: well nourished 02/02/2016 None Full Exam - General 1994 Eyes conjunctiva /eyelids Overall: conjunctiva clear 02/02/2016 None Full Exam - General 1994 Eyes conjunctiva /eyelids Overall: cornea clear 02/02/2016 None Full Exam - General 1994 Eyes conjunctiva /eyelids Overall: eyelids normal 02/02/2016 None Full Exam - General 1994 Eyes pupils and irises Overall: pupils equal, round, reactive to light and accomodation 02/02/2016 None Full Exam - General 1994 Ears/Nose/Throat external ear Overall: normal appearance 02/02/2016 None Full Exam - General 1994 Ears/Nose/Throat external ear Overall: normal mastoids 02/02/2016 None Full Exam - General 1994 Ears/Nose/Throat external nose Overall: benign appearance 02/02/2016 None Full Exam - General 1994 Ears/Nose/Throat otoscopic exam Tympanic membrane: a normal exam 02/02/2016 None Full Exam - General 1994 Ears/Nose/Throat otoscopic exam Tympanic membrane: tympanosclerosis 02/02/2016 None Full Exam - General 1994 Ears/Nose/Throat internal nose Overall: bilateral nasal cavities clear 02/02/2016 None Full Exam - General 1994 Ears/Nose/Throat lips/teeth/gingiva Overall: benign lips 02/02/2016 None Full Exam - General 1994 Ears/Nose/Throat oral cavity/pharynx/larynx Overall: oral mucosa clear 02/02/2016 None Full Exam - General 1994 Ears/Nose/Throat oral cavity/pharynx/larynx Overall: mobile tongue benign 02/02/2016 None Full Exam - General 1994 Ears/Nose/Throat oral cavity/pharynx/larynx Oral mucosa: moist 02/02/2016 None Full Exam - General 1994 Respiratory auscultation Overall: breath sounds clear bilaterally 02/02/2016 None Full Exam - General 1994 Respiratory respiratory effort/rhythm Overall: no retractions 02/02/2016 None Full Exam - General 1994 Respiratory respiratory effort/rhythm Overall: normal rate 02/02/2016 None Full Exam - General 1994 Cardiovascular inspection of carotid pulses Carotid pulse: carotid bruit 02/02/2016 None Full Exam - General 1994 Cardiovascular extremities Overall: no clubbing 02/02/2016 None Full Exam - General 1994 Cardiovascular extremities Edema present: non-pitting 02/02/2016 faint nonpitting edema bilateral LE Full Exam - General 1994 Cardiovascular auscultation of heart Rate: regular rate 02/02/2016 None Full Exam - General 1994 Cardiovascular auscultation of heart Rhythm: regular rhythm 02/02/2016 None Full Exam - General 1994 Cardiovascular auscultation of heart Systolic murmur grade: II/ 02/02/2016 very faint - best heart at upper right sternal border Full Exam - General 1994 Abdomen abdominal exam Overall: no tenderness 02/02/2016 None Full Exam - General 1994 Abdomen abdominal exam Overall: normal bowel sounds 02/02/2016 None Full Exam - General 1994 Abdomen abdominal exam Periumbilical: non-tender to palpation 02/02/2016 umbilical hernia Full Exam - General 1994 Abdomen liver and spleen exam Overall: no hepatosplenomegaly 02/02/2016 None Full Exam - General 1994 Abdomen liver and spleen exam Overall: no stigmata of chronic liver disease 02/02/2016 None Full Exam - General 1994 Musculoskeletal digits and nails Nails: a normal exam 02/02/2016 None Full Exam - General 1994 Musculoskeletal digits and nails DIPs: first 02/02/2016 ulnar deviation of the DIP Full Exam - General 1994 Musculoskeletal digits and nails DIPs: second 02/02/2016 ulnar deviation of DIP Full Exam - General 1994 Musculoskeletal digits and nails DIPs: nodule 02/02/2016 None Full Exam - General 1994 Musculoskeletal digits and nails DIPs: deformity 02/02/2016 None Full Exam - General 1994 Musculoskeletal digits and nails DIPs: decreased flexion 02/02/2016 None Full Exam - General 1994 Musculoskeletal digits and nails DIPs: decreased extension 02/02/2016 None Full Exam - General 1994 Musculoskeletal digits and nails Deformities/Nodules: heberden's node 02/02/2016 None Full Exam - General 1994 Musculoskeletal spine, ribs and pelvis Posture: kyphosis 02/02/2016 very mild kyphosis Full Exam - General 1994 Musculoskeletal head and neck Overall: head atraumatic 02/02/2016 None Full Exam - General 1994 Musculoskeletal head and neck Overall: cervical spine benign 02/02/2016 None Full Exam - General 1994 Integument inspection of skin Dermatitis: erythema 02/02/2016 None Full Exam - General 1994 Integument inspection of skin Dermatitis: dryness/ flaking 02/02/2016 over left flank/hip large lesion - 5 cm x 4 cm lesion Full Exam - General 1994 Neurologic deep tendon reflexes Overall: deep tendon reflexes intact 02/02/2016 None Full Exam - General 1994 Neurologic gait Overall: no ataxia, no unsteadiness 02/02/2016 None Full Exam - General 1994 Neurologic cranial nerves Overall: crainial nerves 2 - 12 grossly intact 02/02/2016 None Full Exam - General 1994 Psychiatric orientation/consciousness Overall: oriented to person, place and time 02/02/2016 None Full Exam - General 1994 Psychiatric mood and affect Overall: normal mood and affect 02/02/2016 None Full Exam - General 1994 Psychiatric mood and affect Mood: happy 02/02/2016 None Full Exam - General 1994 Psychiatric appearance Overall: well-groomed, good eye contact 02/02/2016 None Full Exam - General 1994 Psychiatric speech Overall: normal quality, quantity, rate 02/02/2016 None Full Exam - General 1994 Constitutional general appearance Overall: well developed 12/30/2015 None Full Exam - General 1994 Constitutional general appearance Overall: in no acute distress 12/30/2015 None Full Exam - General 1994 Constitutional general appearance Overall: well nourished 12/30/2015 None Full Exam - General 1994 Eyes conjunctiva /eyelids Overall: conjunctiva clear 12/30/2015 None Full Exam - General 1994 Eyes conjunctiva /eyelids Overall: cornea clear 12/30/2015 None Full Exam - General 1994 Eyes conjunctiva /eyelids Overall: eyelids normal 12/30/2015 None Full Exam - General 1994 Eyes pupils and irises Overall: pupils equal, round, reactive to light and accomodation 12/30/2015 None Full Exam - General 1994 Ears/Nose/Throat external ear Overall: normal appearance 12/30/2015 None Full Exam - General 1994 Ears/Nose/Throat external ear Overall: normal mastoids 12/30/2015 None Full Exam - General 1994 Ears/Nose/Throat external nose Overall: benign appearance 12/30/2015 None Full Exam - General 1994 Ears/Nose/Throat otoscopic exam Tympanic membrane: a normal exam 12/30/2015 None Full Exam - General 1994 Ears/Nose/Throat otoscopic exam Tympanic membrane: tympanosclerosis 12/30/2015 None Full Exam - General 1994 Ears/Nose/Throat internal nose Overall: bilateral nasal cavities clear 12/30/2015 None Full Exam - General 1994 Ears/Nose/Throat lips/teeth/gingiva Overall: benign lips 12/30/2015 None Full Exam - General 1994 Ears/Nose/Throat oral cavity/pharynx/larynx Overall: oral mucosa clear 12/30/2015 None Full Exam - General 1994 Ears/Nose/Throat oral cavity/pharynx/larynx Overall: mobile tongue benign 12/30/2015 None Full Exam - General 1994 Ears/Nose/Throat oral cavity/pharynx/larynx Oral mucosa: moist 12/30/2015 None Full Exam - General 1994 Respiratory auscultation Overall: breath sounds clear bilaterally 12/30/2015 None Full Exam - General 1994 Respiratory respiratory effort/rhythm Overall: no retractions 12/30/2015 None Full Exam - General 1994 Respiratory respiratory effort/rhythm Overall: normal rate 12/30/2015 None Full Exam - General 1994 Cardiovascular inspection of carotid pulses Carotid pulse: carotid bruit 12/30/2015 None Full Exam - General 1994 Cardiovascular extremities Overall: no clubbing 12/30/2015 None Full Exam - General 1994 Cardiovascular extremities Edema present: non-pitting 12/30/2015 faint nonpitting edema bilateral LE Full Exam - General 1994 Cardiovascular auscultation of heart Rate: regular rate 12/30/2015 None Full Exam - General 1994 Cardiovascular auscultation of heart Rhythm: regular rhythm 12/30/2015 None Full Exam - General 1994 Cardiovascular auscultation of heart Systolic murmur grade: II/ 12/30/2015 very faint - best heart at upper right sternal border Full Exam - General 1994 Abdomen abdominal exam Overall: no tenderness 12/30/2015 None Full Exam - General 1994 Abdomen abdominal exam Overall: normal bowel sounds 12/30/2015 None Full Exam - General 1994 Abdomen abdominal exam Periumbilical: non-tender to palpation 12/30/2015 umbilical hernia Full Exam - General 1994 Abdomen liver and spleen exam Overall: no hepatosplenomegaly 12/30/2015 None Full Exam - General 1994 Abdomen liver and spleen exam Overall: no stigmata of chronic liver disease 12/30/2015 None Full Exam - General 1994 Musculoskeletal digits and nails Nails: a normal exam 12/30/2015 None Full Exam - General 1994 Musculoskeletal digits and nails DIPs: first 12/30/2015 ulnar deviation of the DIP Full Exam - General 1994 Musculoskeletal digits and nails DIPs: second 12/30/2015 ulnar deviation of DIP Full Exam - General 1994 Musculoskeletal digits and nails DIPs: nodule 12/30/2015 None Full Exam - General 1994 Musculoskeletal digits and nails DIPs: deformity 12/30/2015 None Full Exam - General 1994 Musculoskeletal digits and nails DIPs: decreased flexion 12/30/2015 None Full Exam - General 1994 Musculoskeletal digits and nails DIPs: decreased extension 12/30/2015 None Full Exam - General 1994 Musculoskeletal digits and nails Deformities/Nodules: heberden's node 12/30/2015 None Full Exam - General 1994 Musculoskeletal spine, ribs and pelvis Posture: kyphosis 12/30/2015 very mild kyphosis Full Exam - General 1994 Musculoskeletal head and neck Overall: head atraumatic 12/30/2015 None Full Exam - General 1994 Musculoskeletal head and neck Overall: cervical spine benign 12/30/2015 None Full Exam - General 1994 Integument inspection of skin Dermatitis: erythema 12/30/2015 None Full Exam - General 1994 Integument inspection of skin Dermatitis: dryness/ flaking 12/30/2015 over left flank/hip large lesion - 5 cm x 4 cm lesion Full Exam - General 1994 Neurologic deep tendon reflexes Overall: deep tendon reflexes intact 12/30/2015 None Full Exam - General 1994 Neurologic gait Overall: no ataxia, no unsteadiness 12/30/2015 None Full Exam - General 1994 Neurologic cranial nerves Overall: crainial nerves 2 - 12 grossly intact 12/30/2015 None Full Exam - General 1994 Psychiatric orientation/consciousness Overall: oriented to person, place and time 12/30/2015 None Full Exam - General 1994 Psychiatric mood and affect Overall: normal mood and affect 12/30/2015 None Full Exam - General 1994 Psychiatric mood and affect Mood: happy 12/30/2015 None Full Exam - General 1994 Psychiatric appearance Overall: well-groomed, good eye contact 12/30/2015 None Full Exam - General 1994 Psychiatric speech Overall: normal quality, quantity, rate 12/30/2015 None Full Exam - General 1994 Constitutional general appearance Overall: well developed 11/03/2015 None Full Exam - General 1994 Constitutional general appearance Overall: in no acute distress 11/03/2015 None Full Exam - General 1994 Constitutional general appearance Overall: well nourished 11/03/2015 None Full Exam - General 1994 Eyes conjunctiva /eyelids Overall: conjunctiva clear 11/03/2015 None Full Exam - General 1994 Eyes conjunctiva /eyelids Overall: cornea clear 11/03/2015 None Full Exam - General 1994 Eyes conjunctiva /eyelids Overall: eyelids normal 11/03/2015 None Full Exam - General 1994 Eyes pupils and irises Overall: pupils equal, round, reactive to light and accomodation 11/03/2015 None Full Exam - General 1994 Ears/Nose/Throat external ear Overall: normal appearance 11/03/2015 None Full Exam - General 1994 Ears/Nose/Throat external ear Overall: normal mastoids 11/03/2015 None Full Exam - General 1994 Ears/Nose/Throat external nose Overall: benign appearance 11/03/2015 None Full Exam - General 1994 Ears/Nose/Throat otoscopic exam External auditory canal: partial cerumen occlusion 11/03/2015 removed with ear curette Full Exam - General 1994 Ears/Nose/Throat otoscopic exam Tympanic membrane: a normal exam 11/03/2015 None Full Exam - General 1994 Ears/Nose/Throat otoscopic exam Tympanic membrane: tympanosclerosis 11/03/2015 None Full Exam - General 1994 Ears/Nose/Throat internal nose Overall: bilateral nasal cavities clear 11/03/2015 None Full Exam - General 1994 Ears/Nose/Throat lips/teeth/gingiva Overall: benign lips 11/03/2015 None Full Exam - General 1994 Ears/Nose/Throat oral cavity/pharynx/larynx Overall: oral mucosa clear 11/03/2015 None Full Exam - General 1994 Ears/Nose/Throat oral cavity/pharynx/larynx Overall: mobile tongue benign 11/03/2015 None Full Exam - General 1994 Ears/Nose/Throat oral cavity/pharynx/larynx Oral mucosa: moist 11/03/2015 None Full Exam - General 1994 Respiratory auscultation Overall: breath sounds clear bilaterally 11/03/2015 None Full Exam - General 1994 Respiratory respiratory effort/rhythm Overall: no retractions 11/03/2015 None Full Exam - General 1994 Respiratory respiratory effort/rhythm Overall: normal rate 11/03/2015 None Full Exam - General 1994 Cardiovascular inspection of carotid pulses Carotid pulse: carotid bruit 11/03/2015 None Full Exam - General 1994 Cardiovascular extremities Overall: no clubbing 11/03/2015 None Full Exam - General 1994 Cardiovascular extremities Edema present: non-pitting 11/03/2015 faint nonpitting edema bilateral LE Full Exam - General 1994 Cardiovascular auscultation of heart Rate: regular rate 11/03/2015 None Full Exam - General 1994 Cardiovascular auscultation of heart Rhythm: regular rhythm 11/03/2015 None Full Exam - General 1994 Cardiovascular auscultation of heart Systolic murmur grade: II/ 11/03/2015 very faint - best heart at upper right sternal border Full Exam - General 1994 Abdomen abdominal exam Overall: no tenderness 11/03/2015 None Full Exam - General 1994 Abdomen abdominal exam Overall: normal bowel sounds 11/03/2015 None Full Exam - General 1994 Abdomen abdominal exam Periumbilical: non-tender to palpation 11/03/2015 umbilical hernia Full Exam - General 1994 Abdomen liver and spleen exam Overall: no hepatosplenomegaly 11/03/2015 None Full Exam - General 1994 Abdomen liver and spleen exam Overall: no stigmata of chronic liver disease 11/03/2015 None Full Exam - General 1994 Lymphatic neck nodes Overall: anterior cervical chain benign 11/03/2015 None Full Exam - General 1994 Lymphatic neck nodes Overall: posterior cervical chain benign 11/03/2015 None Full Exam - General 1994 Musculoskeletal digits and nails Nails: a normal exam 11/03/2015 None Full Exam - General 1994 Musculoskeletal digits and nails DIPs: first 11/03/2015 ulnar deviation of the DIP Full Exam - General 1994 Musculoskeletal digits and nails DIPs: second 11/03/2015 ulnar deviation of DIP Full Exam - General 1994 Musculoskeletal digits and nails DIPs: nodule 11/03/2015 None Full Exam - General 1994 Musculoskeletal digits and nails DIPs: deformity 11/03/2015 None Full Exam - General 1994 Musculoskeletal digits and nails DIPs: decreased flexion 11/03/2015 None Full Exam - General 1994 Musculoskeletal digits and nails DIPs: decreased extension 11/03/2015 None Full Exam - General 1994 Musculoskeletal digits and nails Deformities/Nodules: heberden's node 11/03/2015 None Full Exam - General 1994 Musculoskeletal spine, ribs and pelvis Posture: kyphosis 11/03/2015 very mild kyphosis Full Exam - General 1994 Musculoskeletal head and neck Overall: head atraumatic 11/03/2015 None Full Exam - General 1994 Musculoskeletal head and neck Overall: cervical spine benign 11/03/2015 None Full Exam - General 1994 Integument inspection of skin Dermatitis: erythema 11/03/2015 None Full Exam - General 1994 Integument inspection of skin Dermatitis: dryness/ flaking 11/03/2015 over left flank/hip large lesion - 5 cm x 4 cm lesion Full Exam - General 1994 Neurologic deep tendon reflexes Overall: deep tendon reflexes intact 11/03/2015 None Full Exam - General 1994 Neurologic gait Overall: no ataxia, no unsteadiness 11/03/2015 None Full Exam - General 1994 Neurologic cranial nerves Overall: crainial nerves 2 - 12 grossly intact 11/03/2015 None Full Exam - General 1994 Psychiatric orientation/consciousness Overall: oriented to person, place and time 11/03/2015 None Full Exam - General 1994 Psychiatric mood and affect Overall: normal mood and affect 11/03/2015 None Full Exam - General 1994 Psychiatric mood and affect Mood: happy 11/03/2015 None Full Exam - General 1994 Psychiatric appearance Overall: well-groomed, good eye contact 11/03/2015 None Full Exam - General 1994 Psychiatric speech Overall: normal quality, quantity, rate 11/03/2015 None Full Exam - General 1994 Constitutional general appearance Overall: well developed 09/02/2015 None Full Exam - General 1994 Constitutional general appearance Overall: in no acute distress 09/02/2015 None Full Exam - General 1994 Constitutional general appearance Overall: well nourished 09/02/2015 None Full Exam - General 1994 Eyes conjunctiva /eyelids Overall: conjunctiva clear 09/02/2015 None Full Exam - General 1994 Eyes conjunctiva /eyelids Overall: cornea clear 09/02/2015 None Full Exam - General 1994 Eyes conjunctiva /eyelids Overall: eyelids normal 09/02/2015 None Full Exam - General 1994 Eyes pupils and irises Overall: pupils equal, round, reactive to light and accomodation 09/02/2015 None Full Exam - General 1994 Ears/Nose/Throat external ear Overall: normal appearance 09/02/2015 None Full Exam - General 1994 Ears/Nose/Throat external ear Overall: normal mastoids 09/02/2015 None Full Exam - General 1994 Ears/Nose/Throat external nose Overall: benign appearance 09/02/2015 None Full Exam - General 1994 Ears/Nose/Throat otoscopic exam Tympanic membrane: a normal exam 09/02/2015 None Full Exam - General 1994 Ears/Nose/Throat otoscopic exam Tympanic membrane: tympanosclerosis 09/02/2015 None Full Exam - General 1994 Ears/Nose/Throat internal nose Overall: bilateral nasal cavities clear 09/02/2015 None Full Exam - General 1994 Ears/Nose/Throat lips/teeth/gingiva Overall: benign lips 09/02/2015 None Full Exam - General 1994 Ears/Nose/Throat oral cavity/pharynx/larynx Overall: oral mucosa clear 09/02/2015 None Full Exam - General 1994 Ears/Nose/Throat oral cavity/pharynx/larynx Overall: mobile tongue benign 09/02/2015 None Full Exam - General 1994 Ears/Nose/Throat oral cavity/pharynx/larynx Oral mucosa: moist 09/02/2015 None Full Exam - General 1994 Respiratory auscultation Overall: breath sounds clear bilaterally 09/02/2015 None Full Exam - General 1994 Respiratory respiratory effort/rhythm Overall: no retractions 09/02/2015 None Full Exam - General 1994 Respiratory respiratory effort/rhythm Overall: normal rate 09/02/2015 None Full Exam - General 1994 Cardiovascular inspection of carotid pulses Carotid pulse: carotid bruit 09/02/2015 None Full Exam - General 1994 Cardiovascular extremities Overall: no clubbing 09/02/2015 None Full Exam - General 1994 Cardiovascular extremities Edema present: non-pitting 09/02/2015 faint nonpitting edema bilateral LE Full Exam - General 1994 Cardiovascular auscultation of heart Rate: regular rate 09/02/2015 None Full Exam - General 1994 Cardiovascular auscultation of heart Rhythm: regular rhythm 09/02/2015 None Full Exam - General 1994 Cardiovascular auscultation of heart Systolic murmur grade: II/ 09/02/2015 very faint - best heart at upper right sternal border Full Exam - General 1994 Abdomen abdominal exam Overall: no tenderness 09/02/2015 None Full Exam - General 1994 Abdomen abdominal exam Overall: normal bowel sounds 09/02/2015 None Full Exam - General 1994 Abdomen abdominal exam Periumbilical: non-tender to palpation 09/02/2015 umbilical hernia Full Exam - General 1994 Abdomen liver and spleen exam Overall: no hepatosplenomegaly 09/02/2015 None Full Exam - General 1994 Abdomen liver and spleen exam Overall: no stigmata of chronic liver disease 09/02/2015 None Full Exam - General 1994 Musculoskeletal digits and nails Nails: a normal exam 09/02/2015 None Full Exam - General 1994 Musculoskeletal digits and nails DIPs: first 09/02/2015 ulnar deviation of the DIP Full Exam - General 1994 Musculoskeletal digits and nails DIPs: second 09/02/2015 ulnar deviation of DIP Full Exam - General 1994 Musculoskeletal digits and nails DIPs: nodule 09/02/2015 None Full Exam - General 1994 Musculoskeletal digits and nails DIPs: deformity 09/02/2015 None Full Exam - General 1994 Musculoskeletal digits and nails DIPs: decreased flexion 09/02/2015 None Full Exam - General 1994 Musculoskeletal digits and nails DIPs: decreased extension 09/02/2015 None Full Exam - General 1994 Musculoskeletal digits and nails Deformities/Nodules: heberden's node 09/02/2015 None Full Exam - General 1994 Musculoskeletal spine, ribs and pelvis Posture: kyphosis 09/02/2015 very mild kyphosis Full Exam - General 1994 Musculoskeletal head and neck Overall: head atraumatic 09/02/2015 None Full Exam - General 1994 Musculoskeletal head and neck Overall: cervical spine benign 09/02/2015 None Full Exam - General 1994 Integument inspection of skin Dermatitis: erythema 09/02/2015 None Full Exam - General 1994 Integument inspection of skin Dermatitis: dryness/ flaking 09/02/2015 over left flank/hip large lesion - 5 cm x 4 cm lesion Full Exam - General 1994 Neurologic deep tendon reflexes Overall: deep tendon reflexes intact 09/02/2015 None Full Exam - General 1994 Neurologic gait Overall: no ataxia, no unsteadiness 09/02/2015 None Full Exam - General 1994 Neurologic cranial nerves Overall: crainial nerves 2 - 12 grossly intact 09/02/2015 None Full Exam - General 1994 Psychiatric orientation/consciousness Overall: oriented to person, place and time 09/02/2015 None Full Exam - General 1994 Psychiatric mood and affect Overall: normal mood and affect 09/02/2015 None Full Exam - General 1994 Psychiatric mood and affect Mood: happy 09/02/2015 None Full Exam - General 1994 Psychiatric appearance Overall: well-groomed, good eye contact 09/02/2015 None Full Exam - General 1994 Psychiatric speech Overall: normal quality, quantity, rate 09/02/2015 None Full Exam - General 1994 Constitutional general appearance Overall: well developed 08/04/2015 None Full Exam - General 1994 Constitutional general appearance Overall: in no acute distress 08/04/2015 None Full Exam - General 1994 Constitutional general appearance Overall: well nourished 08/04/2015 None Full Exam - General 1994 Eyes conjunctiva /eyelids Overall: conjunctiva clear 08/04/2015 None Full Exam - General 1994 Eyes conjunctiva /eyelids Overall: cornea clear 08/04/2015 None Full Exam - General 1994 Eyes conjunctiva /eyelids Overall: eyelids normal 08/04/2015 None Full Exam - General 1994 Eyes pupils and irises Overall: pupils equal, round, reactive to light and accomodation 08/04/2015 None Full Exam - General 1994 Ears/Nose/Throat external ear Overall: normal appearance 08/04/2015 None Full Exam - General 1994 Ears/Nose/Throat external ear Overall: normal mastoids 08/04/2015 None Full Exam - General 1994 Ears/Nose/Throat external nose Overall: benign appearance 08/04/2015 None Full Exam - General 1994 Ears/Nose/Throat otoscopic exam Tympanic membrane: a normal exam 08/04/2015 None Full Exam - General 1994 Ears/Nose/Throat otoscopic exam Tympanic membrane: tympanosclerosis 08/04/2015 None Full Exam - General 1994 Ears/Nose/Throat internal nose Overall: bilateral nasal cavities clear 08/04/2015 None Full Exam - General 1994 Ears/Nose/Throat lips/teeth/gingiva Overall: benign lips 08/04/2015 None Full Exam - General 1994 Ears/Nose/Throat oral cavity/pharynx/larynx Overall: oral mucosa clear 08/04/2015 None Full Exam - General 1994 Ears/Nose/Throat oral cavity/pharynx/larynx Overall: mobile tongue benign 08/04/2015 None Full Exam - General 1994 Ears/Nose/Throat oral cavity/pharynx/larynx Oral mucosa: moist 08/04/2015 None Full Exam - General 1994 Respiratory auscultation Overall: breath sounds clear bilaterally 08/04/2015 None Full Exam - General 1994 Respiratory respiratory effort/rhythm Overall: no retractions 08/04/2015 None Full Exam - General 1994 Respiratory respiratory effort/rhythm Overall: normal rate 08/04/2015 None Full Exam - General 1994 Cardiovascular inspection of carotid pulses Carotid pulse: carotid bruit 08/04/2015 None Full Exam - General 1994 Cardiovascular extremities Overall: no clubbing 08/04/2015 None Full Exam - General 1994 Cardiovascular extremities Edema present: non-pitting 08/04/2015 faint nonpitting edema bilateral LE Full Exam - General 1994 Cardiovascular auscultation of heart Rate: regular rate 08/04/2015 None Full Exam - General 1994 Cardiovascular auscultation of heart Rhythm: regular rhythm 08/04/2015 None Full Exam - General 1994 Cardiovascular auscultation of heart Systolic murmur grade: II/ 08/04/2015 very faint - best heart at upper right sternal border Full Exam - General 1994 Abdomen abdominal exam Overall: no tenderness 08/04/2015 None Full Exam - General 1994 Abdomen abdominal exam Overall: normal bowel sounds 08/04/2015 None Full Exam - General 1994 Abdomen abdominal exam Periumbilical: non-tender to palpation 08/04/2015 umbilical hernia Full Exam - General 1994 Abdomen liver and spleen exam Overall: no hepatosplenomegaly 08/04/2015 None Full Exam - General 1994 Abdomen liver and spleen exam Overall: no stigmata of chronic liver disease 08/04/2015 None Full Exam - General 1995 Musculoskeletal digits and nails Nails: a normal exam 08/04/2015 None Full Exam - General 1994 Musculoskeletal digits and nails DIPs: first 08/04/2015 ulnar deviation of the DIP Full Exam - General 1994 Musculoskeletal digits and nails DIPs: second 08/04/2015 ulnar deviation of DIP Full Exam - General 1994 Musculoskeletal digits and nails DIPs: nodule 08/04/2015 None Full Exam - General 1994 Musculoskeletal digits and nails DIPs: deformity 08/04/2015 None Full Exam - General 1994 Musculoskeletal digits and nails DIPs: decreased flexion 08/04/2015 None Full Exam - General 1994 Musculoskeletal digits and nails DIPs: decreased extension 08/04/2015 None Full Exam - General 1994 Musculoskeletal digits and nails Deformities/Nodules: heberden's node 08/04/2015 None Full Exam - General 1994 Musculoskeletal spine, ribs and pelvis Posture: kyphosis 08/04/2015 very mild kyphosis Full Exam - General 1994 Musculoskeletal head and neck Overall: head atraumatic 08/04/2015 None Full Exam - General 1994 Musculoskeletal head and neck Overall: cervical spine benign 08/04/2015 None Full Exam - General 1994 Integument inspection of skin Dermatitis: erythema 08/04/2015 None Full Exam - General 1994 Integument inspection of skin Dermatitis: dryness/ flaking 08/04/2015 over left flank/hip large lesion - 5 cm x 4 cm lesion Full Exam - General 1994 Neurologic deep tendon reflexes Overall: deep tendon reflexes intact 08/04/2015 None Full Exam - General 1994 Neurologic gait Overall: no ataxia, no unsteadiness 08/04/2015 None Full Exam - General 1994 Neurologic cranial nerves Overall: crainial nerves 2 - 12 grossly intact 08/04/2015 None Full Exam - General 1994 Psychiatric orientation/consciousness Overall: oriented to person, place and time 08/04/2015 None Full Exam - General 1994 Psychiatric mood and affect Overall: normal mood and affect 08/04/2015 None Full Exam - General 1994 Psychiatric mood and affect Mood: happy 08/04/2015 None Full Exam - General 1994 Psychiatric appearance Overall: well-groomed, good eye contact 08/04/2015 None Full Exam - General 1994 Psychiatric speech Overall: normal quality, quantity, rate 08/04/2015 None Full Exam - General 1994 Constitutional general appearance Overall: well developed 05/05/2015 None Full Exam - General 1994 Constitutional general appearance Overall: in no acute distress 05/05/2015 None Full Exam - General 1994 Constitutional general appearance Overall: well nourished 05/05/2015 None Full Exam - General 1994 Eyes conjunctiva /eyelids Overall: conjunctiva clear 05/05/2015 None Full Exam - General 1994 Eyes conjunctiva /eyelids Overall: cornea clear 05/05/2015 None Full Exam - General 1994 Eyes conjunctiva /eyelids Overall: eyelids normal 05/05/2015 None Full Exam - General 1994 Eyes pupils and irises Overall: pupils equal, round, reactive to light and accomodation 05/05/2015 None Full Exam - General 1994 Ears/Nose/Throat external ear Overall: normal appearance 05/05/2015 None Full Exam - General 1994 Ears/Nose/Throat external ear Overall: normal mastoids 05/05/2015 None Full Exam - General 1994 Ears/Nose/Throat external nose Overall: benign appearance 05/05/2015 None Full Exam - General 1994 Ears/Nose/Throat otoscopic exam External auditory canal: partial cerumen occlusion 05/05/2015 removed with ear curette Full Exam - General 1994 Ears/Nose/Throat otoscopic exam Tympanic membrane: a normal exam 05/05/2015 None Full Exam - General 1994 Ears/Nose/Throat otoscopic exam Tympanic membrane: tympanosclerosis 05/05/2015 None Full Exam - General 1994 Ears/Nose/Throat internal nose Overall: bilateral nasal cavities clear 05/05/2015 None Full Exam - General 1994 Ears/Nose/Throat lips/teeth/gingiva Overall: benign lips 05/05/2015 None Full Exam - General 1994 Ears/Nose/Throat oral cavity/pharynx/larynx Overall: oral mucosa clear 05/05/2015 None Full Exam - General 1994 Ears/Nose/Throat oral cavity/pharynx/larynx Overall: mobile tongue benign 05/05/2015 None Full Exam - General 1994 Ears/Nose/Throat oral cavity/pharynx/larynx Oral mucosa: moist 05/05/2015 None Full Exam - General 1994 Respiratory auscultation Overall: breath sounds clear bilaterally 05/05/2015 None Full Exam - General 1994 Respiratory respiratory effort/rhythm Overall: no retractions 05/05/2015 None Full Exam - General 1994 Respiratory respiratory effort/rhythm Overall: normal rate 05/05/2015 None Full Exam - General 1994 Cardiovascular inspection of carotid pulses Carotid pulse: carotid bruit 05/05/2015 None Full Exam - General 1994 Cardiovascular extremities Overall: no clubbing 05/05/2015 None Full Exam - General 1994 Cardiovascular extremities Edema present: non-pitting 05/05/2015 faint nonpitting edema bilateral LE Full Exam - General 1994 Cardiovascular auscultation of heart Rate: regular rate 05/05/2015 None Full Exam - General 1994 Cardiovascular auscultation of heart Rhythm: regular rhythm 05/05/2015 None Full Exam - General 1994 Cardiovascular auscultation of heart Systolic murmur grade: II/ 05/05/2015 very faint - best heart at upper right sternal border Full Exam - General 1994 Abdomen abdominal exam Overall: no tenderness 05/05/2015 None Full Exam - General 1994 Abdomen abdominal exam Overall: normal bowel sounds 05/05/2015 None Full Exam - General 1994 Abdomen abdominal exam Periumbilical: non-tender to palpation 05/05/2015 umbilical hernia Full Exam - General 1994 Abdomen liver and spleen exam Overall: no hepatosplenomegaly 05/05/2015 None Full Exam - General 1994 Abdomen liver and spleen exam Overall: no stigmata of chronic liver disease 05/05/2015 None Full Exam - General 1994 Lymphatic neck nodes Overall: anterior cervical chain benign 05/05/2015 None Full Exam - General 1994 Lymphatic neck nodes Overall: posterior cervical chain benign 05/05/2015 None Full Exam - General 1994 Musculoskeletal digits and nails Nails: a normal exam 05/05/2015 None Full Exam - General 1994 Musculoskeletal digits and nails DIPs: first 05/05/2015 ulnar deviation of the DIP Full Exam - General 1994 Musculoskeletal digits and nails DIPs: second 05/05/2015 ulnar deviation of DIP Full Exam - General 1994 Musculoskeletal digits and nails DIPs: nodule 05/05/2015 None Full Exam - General 1994 Musculoskeletal digits and nails DIPs: deformity 05/05/2015 None Full Exam - General 1994 Musculoskeletal digits and nails DIPs: decreased flexion 05/05/2015 None Full Exam - General 1994 Musculoskeletal digits and nails DIPs: decreased extension 05/05/2015 None Full Exam - General 1994 Musculoskeletal digits and nails Deformities/Nodules: heberden's node 05/05/2015 None Full Exam - General 1994 Musculoskeletal spine, ribs and pelvis Posture: kyphosis 05/05/2015 very mild kyphosis Full Exam - General 1994 Musculoskeletal head and neck Overall: head atraumatic 05/05/2015 None Full Exam - General 1994 Musculoskeletal head and neck Overall: cervical spine benign 05/05/2015 None Full Exam - General 1994 Neurologic deep tendon reflexes Overall: deep tendon reflexes intact 05/05/2015 None Full Exam - General 1994 Neurologic gait Overall: no ataxia, no unsteadiness 05/05/2015 None Full Exam - General 1994 Neurologic cranial nerves Overall: crainial nerves 2 - 12 grossly intact 05/05/2015 None Full Exam - General 1994 Psychiatric orientation/consciousness Overall: oriented to person, place and time 05/05/2015 None Full Exam - General 1994 Psychiatric mood and affect Overall: normal mood and affect 05/05/2015 None Full Exam - General 1994 Psychiatric mood and affect Mood: happy 05/05/2015 None Full Exam - General 1994 Psychiatric appearance Overall: well-groomed, good eye contact 05/05/2015 None Full Exam - General 1994 Psychiatric speech Overall: normal quality, quantity, rate 05/05/2015 None Full Exam - General 1994 Musculoskeletal lower extremity ROM - knee: crepitus 05/05/2015 None Full Exam - General 1994 Constitutional general appearance Overall: well developed 04/15/2015 None Full Exam - General 1994 Constitutional general appearance Overall: in no acute distress 04/15/2015 None Full Exam - General 1994 Constitutional general appearance Overall: well nourished 04/15/2015 None Full Exam - General 1994 Eyes conjunctiva /eyelids Overall: conjunctiva clear 04/15/2015 None Full Exam - General 1994 Eyes conjunctiva /eyelids Overall: cornea clear 04/15/2015 None Full Exam - General 1994 Eyes conjunctiva /eyelids Overall: eyelids normal 04/15/2015 None Full Exam - General 1994 Eyes pupils and irises Overall: pupils equal, round, reactive to light and accomodation 04/15/2015 None Full Exam - General 1994 Ears/Nose/Throat external ear Overall: normal appearance 04/15/2015 None Full Exam - General 1994 Ears/Nose/Throat external ear Overall: normal mastoids 04/15/2015 None Full Exam - General 1994 Ears/Nose/Throat external nose Overall: benign appearance 04/15/2015 None Full Exam - General 1994 Ears/Nose/Throat otoscopic exam External auditory canal: partial cerumen occlusion 04/15/2015 removed with ear curette Full Exam - General 1994 Ears/Nose/Throat otoscopic exam Tympanic membrane: a normal exam 04/15/2015 None Full Exam - General 1994 Ears/Nose/Throat otoscopic exam Tympanic membrane: tympanosclerosis 04/15/2015 None Full Exam - General 1994 Ears/Nose/Throat internal nose Overall: bilateral nasal cavities clear 04/15/2015 None Full Exam - General 1994 Ears/Nose/Throat lips/teeth/gingiva Overall: benign lips 04/15/2015 None Full Exam - General 1994 Ears/Nose/Throat oral cavity/pharynx/larynx Overall: oral mucosa clear 04/15/2015 None Full Exam - General 1994 Ears/Nose/Throat oral cavity/pharynx/larynx Overall: mobile tongue benign 04/15/2015 None Full Exam - General 1994 Ears/Nose/Throat oral cavity/pharynx/larynx Oral mucosa: moist 04/15/2015 None Full Exam - General 1994 Respiratory auscultation Overall: breath sounds clear bilaterally 04/15/2015 None Full Exam - General 1994 Respiratory respiratory effort/rhythm Overall: no retractions 04/15/2015 None Full Exam - General 1994 Respiratory respiratory effort/rhythm Overall: normal rate 04/15/2015 None Full Exam - General 1994 Cardiovascular inspection of carotid pulses Carotid pulse: carotid bruit 04/15/2015 None Full Exam - General 1994 Cardiovascular extremities Overall: no clubbing 04/15/2015 None Full Exam - General 1994 Cardiovascular extremities Edema present: non-pitting 04/15/2015 faint nonpitting edema bilateral LE Full Exam - General 1994 Cardiovascular auscultation of heart Rate: regular rate 04/15/2015 None Full Exam - General 1994 Cardiovascular auscultation of heart Rhythm: regular rhythm 04/15/2015 None Full Exam - General 1994 Cardiovascular auscultation of heart Systolic murmur grade: II/ 04/15/2015 very faint - best heart at upper right sternal border Full Exam - General 1994 Abdomen abdominal exam Overall: no tenderness 04/15/2015 None Full Exam - General 1994 Abdomen abdominal exam Overall: normal bowel sounds 04/15/2015 None Full Exam - General 1994 Abdomen abdominal exam Periumbilical: non-tender to palpation 04/15/2015 umbilical hernia Full Exam - General 1994 Abdomen liver and spleen exam Overall: no hepatosplenomegaly 04/15/2015 None Full Exam - General 1994 Abdomen liver and spleen exam Overall: no stigmata of chronic liver disease 04/15/2015 None Full Exam - General 1994 Lymphatic neck nodes Overall: anterior cervical chain benign 04/15/2015 None Full Exam - General 1994 Lymphatic neck nodes Overall: posterior cervical chain benign 04/15/2015 None Full Exam - General 1994 Musculoskeletal digits and nails Nails: a normal exam 04/15/2015 None Full Exam - General 1994 Musculoskeletal digits and nails DIPs: first 04/15/2015 ulnar deviation of the DIP Full Exam - General 1994 Musculoskeletal digits and nails DIPs: second 04/15/2015 ulnar deviation of DIP Full Exam - General 1994 Musculoskeletal digits and nails DIPs: nodule 04/15/2015 None Full Exam - General 1994 Musculoskeletal digits and nails DIPs: deformity 04/15/2015 None Full Exam - General 1994 Musculoskeletal digits and nails DIPs: decreased flexion 04/15/2015 None Full Exam - General 1994 Musculoskeletal digits and nails DIPs: decreased extension 04/15/2015 None Full Exam - General 1994 Musculoskeletal digits and nails Deformities/Nodules: heberden's node 04/15/2015 None Full Exam - General 1994 Musculoskeletal spine, ribs and pelvis Posture: kyphosis 04/15/2015 very mild kyphosis Full Exam - General 1994 Musculoskeletal head and neck Overall: head atraumatic 04/15/2015 None Full Exam - General 1994 Musculoskeletal head and neck Overall: cervical spine benign 04/15/2015 None Full Exam - General 1994 Neurologic deep tendon reflexes Overall: deep tendon reflexes intact 04/15/2015 None Full Exam - General 1994 Neurologic gait Overall: no ataxia, no unsteadiness 04/15/2015 None Full Exam - General 1994 Neurologic cranial nerves Overall: crainial nerves 2 - 12 grossly intact 04/15/2015 None Full Exam - General 1994 Psychiatric orientation/consciousness Overall: oriented to person, place and time 04/15/2015 None Full Exam - General 1994 Psychiatric mood and affect Overall: normal mood and affect 04/15/2015 None Full Exam - General 1994 Psychiatric mood and affect Mood: happy 04/15/2015 None Full Exam - General 1994 Psychiatric appearance Overall: well-groomed, good eye contact 04/15/2015 None Full Exam - General 1994 Psychiatric speech Overall: normal quality, quantity, rate 04/15/2015 None Full Exam - General 1994 Integument inspection of skin Dermatitis: erythema 04/15/2015 None Full Exam - General 1994 Integument inspection of skin Dermatitis: dryness/ flaking 04/15/2015 over left flank/hip large lesion - 5 cm x 4 cm lesion Full Exam - General 1994 Chest/Breast breast/chest inspection Breast symmetry: symmetric 04/15/2015 pendulous breasts, fibrocystic changes. Full Exam - General 1994 Constitutional general appearance Overall: well developed 02/03/2015 None Full Exam - General 1994 Constitutional general appearance Overall: in no acute distress 02/03/2015 None Full Exam - General 1994 Constitutional general appearance Overall: well nourished 02/03/2015 None Full Exam - General 1994 Eyes conjunctiva /eyelids Overall: conjunctiva clear 02/03/2015 None Full Exam - General 1994 Eyes conjunctiva /eyelids Overall: cornea clear 02/03/2015 None Full Exam - General 1994 Eyes conjunctiva /eyelids Overall: eyelids normal 02/03/2015 None Full Exam - General 1994 Eyes pupils and irises Overall: pupils equal, round, reactive to light and accomodation 02/03/2015 None Full Exam - General 1994 Ears/Nose/Throat external ear Overall: normal appearance 02/03/2015 None Full Exam - General 1994 Ears/Nose/Throat external ear Overall: normal mastoids 02/03/2015 None Full Exam - General 1994 Ears/Nose/Throat external nose Overall: benign appearance 02/03/2015 None Full Exam - General 1994 Ears/Nose/Throat otoscopic exam External auditory canal: partial cerumen occlusion 02/03/2015 removed with ear curette Full Exam - General 1994 Ears/Nose/Throat otoscopic exam Tympanic membrane: a normal exam 02/03/2015 None Full Exam - General 1994 Ears/Nose/Throat otoscopic exam Tympanic membrane: tympanosclerosis 02/03/2015 None Full Exam - General 1994 Ears/Nose/Throat internal nose Overall: bilateral nasal cavities clear 02/03/2015 None Full Exam - General 1994 Ears/Nose/Throat lips/teeth/gingiva Overall: benign lips 02/03/2015 None Full Exam - General 1994 Ears/Nose/Throat oral cavity/pharynx/larynx Overall: oral mucosa clear 02/03/2015 None Full Exam - General 1994 Ears/Nose/Throat oral cavity/pharynx/larynx Overall: mobile tongue benign 02/03/2015 None Full Exam - General 1994 Ears/Nose/Throat oral cavity/pharynx/larynx Oral mucosa: moist 02/03/2015 None Full Exam - General 1994 Respiratory auscultation Overall: breath sounds clear bilaterally 02/03/2015 None Full Exam - General 1994 Respiratory respiratory effort/rhythm Overall: no retractions 02/03/2015 None Full Exam - General 1994 Respiratory respiratory effort/rhythm Overall: normal rate 02/03/2015 None Full Exam - General 1994 Cardiovascular inspection of carotid pulses Carotid pulse: carotid bruit 02/03/2015 None Full Exam - General 1994 Cardiovascular extremities Overall: no clubbing 02/03/2015 None Full Exam - General 1994 Cardiovascular extremities Edema present: non-pitting 02/03/2015 faint nonpitting edema bilateral LE Full Exam - General 1994 Cardiovascular auscultation of heart Rate: regular rate 02/03/2015 None Full Exam - General 1994 Cardiovascular auscultation of heart Rhythm: regular rhythm 02/03/2015 None Full Exam - General 1994 Cardiovascular auscultation of heart Systolic murmur grade: II/ 02/03/2015 very faint - best heart at upper right sternal border Full Exam - General 1994 Abdomen abdominal exam Overall: no tenderness 02/03/2015 None Full Exam - General 1994 Abdomen abdominal exam Overall: normal bowel sounds 02/03/2015 None Full Exam - General 1994 Abdomen abdominal exam Periumbilical: non-tender to palpation 02/03/2015 umbilical hernia Full Exam - General 1994 Abdomen liver and spleen exam Overall: no hepatosplenomegaly 02/03/2015 None Full Exam - General 1994 Abdomen liver and spleen exam Overall: no stigmata of chronic liver disease 02/03/2015 None Full Exam - General 1994 Lymphatic neck nodes Overall: anterior cervical chain benign 02/03/2015 None Full Exam - General 1994 Lymphatic neck nodes Overall: posterior cervical chain benign 02/03/2015 None Full Exam - General 1994 Musculoskeletal digits and nails Nails: a normal exam 02/03/2015 None Full Exam - General 1994 Musculoskeletal digits and nails DIPs: first 02/03/2015 ulnar deviation of the DIP Full Exam - General 1994 Musculoskeletal digits and nails DIPs: second 02/03/2015 ulnar deviation of DIP Full Exam - General 1994 Musculoskeletal digits and nails DIPs: nodule 02/03/2015 None Full Exam - General 1994 Musculoskeletal digits and nails DIPs: deformity 02/03/2015 None Full Exam - General 1994 Musculoskeletal digits and nails DIPs: decreased flexion 02/03/2015 None Full Exam - General 1994 Musculoskeletal digits and nails DIPs: decreased extension 02/03/2015 None Full Exam - General 1994 Musculoskeletal digits and nails Deformities/Nodules: heberden's node 02/03/2015 None Full Exam - General 1994 Musculoskeletal spine, ribs and pelvis Posture: kyphosis 02/03/2015 very mild kyphosis Full Exam - General 1994 Musculoskeletal head and neck Overall: head atraumatic 02/03/2015 None Full Exam - General 1994 Musculoskeletal head and neck Overall: cervical spine benign 02/03/2015 None Full Exam - General 1994 Neurologic deep tendon reflexes Overall: deep tendon reflexes intact 02/03/2015 None Full Exam - General 1994 Neurologic gait Overall: no ataxia, no unsteadiness 02/03/2015 None Full Exam - General 1994 Neurologic cranial nerves Overall: crainial nerves 2 - 12 grossly intact 02/03/2015 None Full Exam - General 1994 Psychiatric orientation/consciousness Overall: oriented to person, place and time 02/03/2015 None Full Exam - General 1994 Psychiatric mood and affect Overall: normal mood and affect 02/03/2015 None Full Exam - General 1994 Psychiatric mood and affect Mood: happy 02/03/2015 None Full Exam - General 1994 Psychiatric appearance Overall: well-groomed, good eye contact 02/03/2015 None Full Exam - General 1994 Psychiatric speech Overall: normal quality, quantity, rate 02/03/2015 None Full Exam - General 1994 Constitutional general appearance Overall: well developed 12/02/2014 None Full Exam - General 1994 Constitutional general appearance Overall: in no acute distress 12/02/2014 None Full Exam - General 1994 Constitutional general appearance Overall: well nourished 12/02/2014 None Full Exam - General 1994 Eyes conjunctiva /eyelids Overall: conjunctiva clear 12/02/2014 None Full Exam - General 1994 Eyes conjunctiva /eyelids Overall: cornea clear 12/02/2014 None Full Exam - General 1994 Eyes conjunctiva /eyelids Overall: eyelids normal 12/02/2014 None Full Exam - General 1994 Eyes pupils and irises Overall: pupils equal, round, reactive to light and accomodation 12/02/2014 None Full Exam - General 1994 Ears/Nose/Throat external ear Overall: normal appearance 12/02/2014 None Full Exam - General 1994 Ears/Nose/Throat external ear Overall: normal mastoids 12/02/2014 None Full Exam - General 1994 Ears/Nose/Throat external nose Overall: benign appearance 12/02/2014 None Full Exam - General 1994 Ears/Nose/Throat otoscopic exam External auditory canal: partial cerumen occlusion 12/02/2014 removed with ear curette Full Exam - General 1994 Ears/Nose/Throat otoscopic exam Tympanic membrane: a normal exam 12/02/2014 None Full Exam - General 1994 Ears/Nose/Throat otoscopic exam Tympanic membrane: tympanosclerosis 12/02/2014 None Full Exam - General 1994 Ears/Nose/Throat internal nose Overall: bilateral nasal cavities clear 12/02/2014 None Full Exam - General 1994 Ears/Nose/Throat lips/teeth/gingiva Overall: benign lips 12/02/2014 None Full Exam - General 1994 Ears/Nose/Throat oral cavity/pharynx/larynx Overall: oral mucosa clear 12/02/2014 None Full Exam - General 1994 Ears/Nose/Throat oral cavity/pharynx/larynx Overall: mobile tongue benign 12/02/2014 None Full Exam - General 1994 Ears/Nose/Throat oral cavity/pharynx/larynx Oral mucosa: moist 12/02/2014 None Full Exam - General 1994 Respiratory auscultation Overall: breath sounds clear bilaterally 12/02/2014 None Full Exam - General 1994 Respiratory respiratory effort/rhythm Overall: no retractions 12/02/2014 None Full Exam - General 1994 Respiratory respiratory effort/rhythm Overall: normal rate 12/02/2014 None Full Exam - General 1994 Cardiovascular inspection of carotid pulses Carotid pulse: carotid bruit 12/02/2014 None Full Exam - General 1994 Cardiovascular extremities Overall: no clubbing 12/02/2014 None Full Exam - General 1994 Cardiovascular extremities Edema present: non-pitting 12/02/2014 faint nonpitting edema bilateral LE Full Exam - General 1994 Cardiovascular auscultation of heart Rate: regular rate 12/02/2014 None Full Exam - General 1994 Cardiovascular auscultation of heart Rhythm: regular rhythm 12/02/2014 None Full Exam - General 1994 Cardiovascular auscultation of heart Systolic murmur grade: II/ 12/02/2014 very faint - best heart at upper right sternal border Full Exam - General 1994 Abdomen abdominal exam Overall: no tenderness 12/02/2014 None Full Exam - General 1994 Abdomen abdominal exam Overall: normal bowel sounds 12/02/2014 None Full Exam - General 1994 Abdomen abdominal exam Periumbilical: non-tender to palpation 12/02/2014 umbilical hernia Full Exam - General 1994 Abdomen liver and spleen exam Overall: no hepatosplenomegaly 12/02/2014 None Full Exam - General 1994 Abdomen liver and spleen exam Overall: no stigmata of chronic liver disease 12/02/2014 None Full Exam - General 1994 Lymphatic neck nodes Overall: anterior cervical chain benign 12/02/2014 None Full Exam - General 1994 Lymphatic neck nodes Overall: posterior cervical chain benign 12/02/2014 None Full Exam - General 1994 Musculoskeletal digits and nails Nails: a normal exam 12/02/2014 None Full Exam - General 1994 Musculoskeletal digits and nails DIPs: first 12/02/2014 ulnar deviation of the DIP Full Exam - General 1995 Musculoskeletal digits and nails DIPs: second 12/02/2014 ulnar deviation of DIP Full Exam - General 1994 Musculoskeletal digits and nails DIPs: nodule 12/02/2014 None Full Exam - General 1994 Musculoskeletal digits and nails DIPs: deformity 12/02/2014 None Full Exam - General 1994 Musculoskeletal digits and nails DIPs: decreased flexion 12/02/2014 None Full Exam - General 1994 Musculoskeletal digits and nails DIPs: decreased extension 12/02/2014 None Full Exam - General 1994 Musculoskeletal digits and nails Deformities/Nodules: heberden's node 12/02/2014 None Full Exam - General 1994 Musculoskeletal spine, ribs and pelvis Posture: kyphosis 12/02/2014 very mild kyphosis Full Exam - General 1994 Musculoskeletal head and neck Overall: head atraumatic 12/02/2014 None Full Exam - General 1994 Musculoskeletal head and neck Overall: cervical spine benign 12/02/2014 None Full Exam - General 1994 Neurologic deep tendon reflexes Overall: deep tendon reflexes intact 12/02/2014 None Full Exam - General 1994 Neurologic gait Overall: no ataxia, no unsteadiness 12/02/2014 None Full Exam - General 1994 Neurologic cranial nerves Overall: crainial nerves 2 - 12 grossly intact 12/02/2014 None Full Exam - General 1994 Psychiatric orientation/consciousness Overall: oriented to person, place and time 12/02/2014 None Full Exam - General 1994 Psychiatric mood and affect Overall: normal mood and affect 12/02/2014 None Full Exam - General 1994 Psychiatric mood and affect Mood: happy 12/02/2014 None Full Exam - General 1994 Psychiatric appearance Overall: well-groomed, good eye contact 12/02/2014 None Full Exam - General 1994 Psychiatric speech Overall: normal quality, quantity, rate 12/02/2014 None Full Exam - General 1994 Constitutional general appearance Overall: well developed 10/14/2014 None Full Exam - General 1994 Constitutional general appearance Overall: in no acute distress 10/14/2014 None Full Exam - General 1994 Constitutional general appearance Overall: well nourished 10/14/2014 None Full Exam - General 1994 Eyes conjunctiva /eyelids Overall: conjunctiva clear 10/14/2014 None Full Exam - General 1994 Eyes conjunctiva /eyelids Overall: cornea clear 10/14/2014 None Full Exam - General 1994 Eyes conjunctiva /eyelids Overall: eyelids normal 10/14/2014 None Full Exam - General 1994 Eyes pupils and irises Overall: pupils equal, round, reactive to light and accomodation 10/14/2014 None Full Exam - General 1994 Ears/Nose/Throat external ear Overall: normal appearance 10/14/2014 None Full Exam - General 1994 Ears/Nose/Throat external ear Overall: normal mastoids 10/14/2014 None Full Exam - General 1994 Ears/Nose/Throat external nose Overall: benign appearance 10/14/2014 None Full Exam - General 1994 Ears/Nose/Throat otoscopic exam External auditory canal: partial cerumen occlusion 10/14/2014 removed with ear curette Full Exam - General 1994 Ears/Nose/Throat otoscopic exam Tympanic membrane: a normal exam 10/14/2014 None Full Exam - General 1994 Ears/Nose/Throat otoscopic exam Tympanic membrane: tympanosclerosis 10/14/2014 None Full Exam - General 1994 Ears/Nose/Throat internal nose Overall: bilateral nasal cavities clear 10/14/2014 None Full Exam - General 1994 Ears/Nose/Throat lips/teeth/gingiva Overall: benign lips 10/14/2014 None Full Exam - General 1994 Ears/Nose/Throat oral cavity/pharynx/larynx Overall: oral mucosa clear 10/14/2014 None Full Exam - General 1994 Ears/Nose/Throat oral cavity/pharynx/larynx Overall: mobile tongue benign 10/14/2014 None Full Exam - General 1994 Ears/Nose/Throat oral cavity/pharynx/larynx Oral mucosa: moist 10/14/2014 None Full Exam - General 1994 Respiratory auscultation Overall: breath sounds clear bilaterally 10/14/2014 None Full Exam - General 1994 Respiratory respiratory effort/rhythm Overall: no retractions 10/14/2014 None Full Exam - General 1994 Respiratory respiratory effort/rhythm Overall: normal rate 10/14/2014 None Full Exam - General 1994 Cardiovascular inspection of carotid pulses Carotid pulse: carotid bruit 10/14/2014 None Full Exam - General 1994 Cardiovascular extremities Overall: no clubbing 10/14/2014 None Full Exam - General 1994 Cardiovascular extremities Edema present: non-pitting 10/14/2014 faint nonpitting edema bilateral LE Full Exam - General 1994 Cardiovascular auscultation of heart Rate: regular rate 10/14/2014 None Full Exam - General 1994 Cardiovascular auscultation of heart Rhythm: regular rhythm 10/14/2014 None Full Exam - General 1994 Cardiovascular auscultation of heart Systolic murmur grade: II/ 10/14/2014 very faint - best heart at upper right sternal border Full Exam - General 1994 Abdomen abdominal exam Overall: no tenderness 10/14/2014 None Full Exam - General 1994 Abdomen abdominal exam Overall: normal bowel sounds 10/14/2014 None Full Exam - General 1994 Abdomen abdominal exam Periumbilical: non-tender to palpation 10/14/2014 umbilical hernia Full Exam - General 1994 Abdomen liver and spleen exam Overall: no hepatosplenomegaly 10/14/2014 None Full Exam - General 1994 Abdomen liver and spleen exam Overall: no stigmata of chronic liver disease 10/14/2014 None Full Exam - General 1994 Lymphatic neck nodes Overall: anterior cervical chain benign 10/14/2014 None Full Exam - General 1994 Lymphatic neck nodes Overall: posterior cervical chain benign 10/14/2014 None Full Exam - General 1994 Musculoskeletal digits and nails Nails: a normal exam 10/14/2014 None Full Exam - General 1994 Musculoskeletal digits and nails DIPs: first 10/14/2014 ulnar deviation of the DIP Full Exam - General 1994 Musculoskeletal digits and nails DIPs: second 10/14/2014 ulnar deviation of DIP Full Exam - General 1994 Musculoskeletal digits and nails DIPs: nodule 10/14/2014 None Full Exam - General 1994 Musculoskeletal digits and nails DIPs: deformity 10/14/2014 None Full Exam - General 1994 Musculoskeletal digits and nails DIPs: decreased flexion 10/14/2014 None Full Exam - General 1994 Musculoskeletal digits and nails DIPs: decreased extension 10/14/2014 None Full Exam - General 1994 Musculoskeletal digits and nails Deformities/Nodules: heberden's node 10/14/2014 None Full Exam - General 1994 Musculoskeletal spine, ribs and pelvis Posture: kyphosis 10/14/2014 very mild kyphosis Full Exam - General 1994 Musculoskeletal head and neck Overall: head atraumatic 10/14/2014 None Full Exam - General 1994 Musculoskeletal head and neck Overall: cervical spine benign 10/14/2014 None Full Exam - General 1994 Neurologic deep tendon reflexes Overall: deep tendon reflexes intact 10/14/2014 None Full Exam - General 1994 Neurologic gait Overall: no ataxia, no unsteadiness 10/14/2014 None Full Exam - General 1994 Neurologic cranial nerves Overall: crainial nerves 2 - 12 grossly intact 10/14/2014 None Full Exam - General 1994 Psychiatric orientation/consciousness Overall: oriented to person, place and time 10/14/2014 None Full Exam - General 1994 Psychiatric mood and affect Overall: normal mood and affect 10/14/2014 None Full Exam - General 1994 Psychiatric mood and affect Mood: happy 10/14/2014 None Full Exam - General 1994 Psychiatric appearance Overall: well-groomed, good eye contact 10/14/2014 None Full Exam - General 1994 Psychiatric speech Overall: normal quality, quantity, rate 10/14/2014 None Full Exam - General 1994 Integument inspection of skin Dermatitis: scaling 10/14/2014 plaque on left hip Full Exam - General 1994 Constitutional general appearance Overall: well developed 07/17/2014 None Full Exam - General 1994 Constitutional general appearance Overall: in no acute distress 07/17/2014 None Full Exam - General 1994 Constitutional general appearance Overall: well nourished 07/17/2014 None Full Exam - General 1994 Eyes conjunctiva /eyelids Overall: conjunctiva clear 07/17/2014 None Full Exam - General 1994 Eyes conjunctiva /eyelids Overall: cornea clear 07/17/2014 None Full Exam - General 1994 Eyes conjunctiva /eyelids Overall: eyelids normal 07/17/2014 None Full Exam - General 1994 Eyes pupils and irises Overall: pupils equal, round, reactive to light and accomodation 07/17/2014 None Full Exam - General 1994 Ears/Nose/Throat external ear Overall: normal appearance 07/17/2014 None Full Exam - General 1994 Ears/Nose/Throat external ear Overall: normal mastoids 07/17/2014 None Full Exam - General 1994 Ears/Nose/Throat external nose Overall: benign appearance 07/17/2014 None Full Exam - General 1994 Ears/Nose/Throat otoscopic exam External auditory canal: partial cerumen occlusion 07/17/2014 removed with ear curette Full Exam - General 1994 Ears/Nose/Throat otoscopic exam Tympanic membrane: a normal exam 07/17/2014 None Full Exam - General 1994 Ears/Nose/Throat otoscopic exam Tympanic membrane: tympanosclerosis 07/17/2014 None Full Exam - General 1994 Ears/Nose/Throat internal nose Overall: bilateral nasal cavities clear 07/17/2014 None Full Exam - General 1994 Ears/Nose/Throat lips/teeth/gingiva Overall: benign lips 07/17/2014 None Full Exam - General 1994 Ears/Nose/Throat oral cavity/pharynx/larynx Overall: oral mucosa clear 07/17/2014 None Full Exam - General 1994 Ears/Nose/Throat oral cavity/pharynx/larynx Overall: mobile tongue benign 07/17/2014 None Full Exam - General 1994 Ears/Nose/Throat oral cavity/pharynx/larynx Oral mucosa: moist 07/17/2014 None Full Exam - General 1994 Respiratory auscultation Overall: breath sounds clear bilaterally 07/17/2014 None Full Exam - General 1994 Respiratory respiratory effort/rhythm Overall: no retractions 07/17/2014 None Full Exam - General 1994 Respiratory respiratory effort/rhythm Overall: normal rate 07/17/2014 None Full Exam - General 1994 Cardiovascular inspection of carotid pulses Carotid pulse: carotid bruit 07/17/2014 None Full Exam - General 1994 Cardiovascular extremities Overall: no clubbing 07/17/2014 None Full Exam - General 1994 Cardiovascular extremities Edema present: non-pitting 07/17/2014 faint nonpitting edema bilateral LE Full Exam - General 1994 Cardiovascular auscultation of heart Rate: regular rate 07/17/2014 None Full Exam - General 1994 Cardiovascular auscultation of heart Rhythm: regular rhythm 07/17/2014 None Full Exam - General 1994 Cardiovascular auscultation of heart Systolic murmur grade: II/ 07/17/2014 very faint - best heart at upper right sternal border Full Exam - General 1994 Abdomen abdominal exam Overall: no tenderness 07/17/2014 None Full Exam - General 1994 Abdomen abdominal exam Overall: normal bowel sounds 07/17/2014 None Full Exam - General 1994 Abdomen abdominal exam Periumbilical: non-tender to palpation 07/17/2014 umbilical hernia Full Exam - General 1994 Abdomen liver and spleen exam Overall: no hepatosplenomegaly 07/17/2014 None Full Exam - General 1994 Abdomen liver and spleen exam Overall: no stigmata of chronic liver disease 07/17/2014 None Full Exam - General 1994 Lymphatic neck nodes Overall: anterior cervical chain benign 07/17/2014 None Full Exam - General 1994 Lymphatic neck nodes Overall: posterior cervical chain benign 07/17/2014 None Full Exam - General 1994 Musculoskeletal digits and nails DIPs: first 07/17/2014 ulnar deviation of the DIP Full Exam - General 1994 Musculoskeletal digits and nails DIPs: second 07/17/2014 ulnar deviation of DIP Full Exam - General 1994 Musculoskeletal digits and nails DIPs: nodule 07/17/2014 None Full Exam - General 1994 Musculoskeletal digits and nails DIPs: deformity 07/17/2014 None Full Exam - General 1994 Musculoskeletal digits and nails DIPs: decreased flexion 07/17/2014 None Full Exam - General 1994 Musculoskeletal digits and nails DIPs: decreased extension 07/17/2014 None Full Exam - General 1994 Musculoskeletal digits and nails Deformities/Nodules: heberden's node 07/17/2014 None Full Exam - General 1994 Musculoskeletal spine, ribs and pelvis Posture: kyphosis 07/17/2014 very mild kyphosis Full Exam - General 1994 Musculoskeletal head and neck Overall: head atraumatic 07/17/2014 None Full Exam - General 1994 Musculoskeletal head and neck Overall: cervical spine benign 07/17/2014 None Full Exam - General 1994 Neurologic deep tendon reflexes Overall: deep tendon reflexes intact 07/17/2014 None Full Exam - General 1994 Neurologic gait Overall: no ataxia, no unsteadiness 07/17/2014 None Full Exam - General 1994 Neurologic cranial nerves Overall: crainial nerves 2 - 12 grossly intact 07/17/2014 None Full Exam - General 1994 Psychiatric orientation/consciousness Overall: oriented to person, place and time 07/17/2014 None Full Exam - General 1994 Psychiatric mood and affect Overall: normal mood and affect 07/17/2014 None Full Exam - General 1994 Psychiatric mood and affect Mood: happy 07/17/2014 None Full Exam - General 1994 Psychiatric appearance Overall: well-groomed, good eye contact 07/17/2014 None Full Exam - General 1994 Psychiatric speech Overall: normal quality, quantity, rate 07/17/2014 None Full Exam - General 1994 Integument inspection of skin Dermatitis: erythema 07/17/2014 None Full Exam - General 1994 Integument inspection of skin Dermatitis: dryness/ flaking 07/17/2014 left posterior buttock/ hip region - large 3 x 4 cm lesion Full Exam - General 1994 Musculoskeletal lower extremity Inspection - foot: pes planus 07/17/2014 None Full Exam - General 1994 Musculoskeletal lower extremity Palpation - foot: swelling 07/17/2014 top of left foot - tender over left lateral foot Full Exam - General 1994 Constitutional general appearance Overall: well developed 06/05/2014 None Full Exam - General 1994 Constitutional general appearance Overall: in no acute distress 06/05/2014 None Full Exam - General 1994 Constitutional general appearance Overall: well nourished 06/05/2014 None Full Exam - General 1994 Eyes conjunctiva /eyelids Overall: conjunctiva clear 06/05/2014 None Full Exam - General 1994 Eyes conjunctiva /eyelids Overall: cornea clear 06/05/2014 None Full Exam - General 1994 Eyes conjunctiva /eyelids Overall: eyelids normal 06/05/2014 None Full Exam - General 1994 Eyes pupils and irises Overall: pupils equal, round, reactive to light and accomodation 06/05/2014 None Full Exam - General 1994 Ears/Nose/Throat external ear Overall: normal appearance 06/05/2014 None Full Exam - General 1994 Ears/Nose/Throat external ear Overall: normal mastoids 06/05/2014 None Full Exam - General 1994 Ears/Nose/Throat external nose Overall: benign appearance 06/05/2014 None Full Exam - General 1994 Ears/Nose/Throat otoscopic exam Tympanic membrane: air- fluid level 06/05/2014 bilateral maxillary and frontal sinus tenderness Full Exam - General 1994 Ears/Nose/Throat otoscopic exam Tympanic membrane: tympanosclerosis 06/05/2014 None Full Exam - General 1994 Ears/Nose/Throat internal nose Overall: bilateral nasal cavities clear 06/05/2014 None Full Exam - General 1994 Ears/Nose/Throat lips/teeth/gingiva Overall: benign lips 06/05/2014 None Full Exam - General 1994 Ears/Nose/Throat oral cavity/pharynx/larynx Overall: oral mucosa clear 06/05/2014 None Full Exam - General 1994 Ears/Nose/Throat oral cavity/pharynx/larynx Overall: mobile tongue benign 06/05/2014 None Full Exam - General 1994 Ears/Nose/Throat oral cavity/pharynx/larynx Oral mucosa: moist 06/05/2014 None Full Exam - General 1994 Respiratory auscultation Overall: breath sounds clear bilaterally 06/05/2014 None Full Exam - General 1994 Respiratory respiratory effort/rhythm Overall: no retractions 06/05/2014 None Full Exam - General 1994 Respiratory respiratory effort/rhythm Overall: normal rate 06/05/2014 None Full Exam - General 1994 Cardiovascular extremities Overall: no clubbing 06/05/2014 None Full Exam - General 1994 Cardiovascular extremities Edema present: non-pitting 06/05/2014 faint nonpitting edema bilateral LE Full Exam - General 1994 Cardiovascular auscultation of heart Rate: regular rate 06/05/2014 None Full Exam - General 1994 Cardiovascular auscultation of heart Rhythm: regular rhythm 06/05/2014 None Full Exam - General 1994 Cardiovascular auscultation of heart Systolic murmur grade: II/ 06/05/2014 very faint - best heart at upper right sternal border Full Exam - General 1994 Abdomen abdominal exam Overall: no tenderness 06/05/2014 None Full Exam - General 1994 Abdomen abdominal exam Overall: normal bowel sounds 06/05/2014 None Full Exam - General 1994 Abdomen liver and spleen exam Overall: no hepatosplenomegaly 06/05/2014 None Full Exam - General 1994 Abdomen liver and spleen exam Overall: no stigmata of chronic liver disease 06/05/2014 None Full Exam - General 1994 Lymphatic neck nodes Overall: anterior cervical chain benign 06/05/2014 None Full Exam - General 1994 Lymphatic neck nodes Overall: posterior cervical chain benign 06/05/2014 None Full Exam - General 1994 Musculoskeletal digits and nails Nails: a normal exam 06/05/2014 None Full Exam - General 1994 Musculoskeletal head and neck Overall: head atraumatic 06/05/2014 None Full Exam - General 1994 Musculoskeletal head and neck Overall: cervical spine benign 06/05/2014 None Full Exam - General 1994 Integument inspection of skin Location: buttocks 06/05/2014 left buttock 8cm x 5cm Full Exam - General 1994 Integument inspection of skin Rash/Lesions: papule 06/05/2014 None Full Exam - General 1994 Integument inspection of skin Pigmentation: erythematous 06/05/2014 None Full Exam - General 1994 Neurologic deep tendon reflexes Overall: deep tendon reflexes intact 06/05/2014 None Full Exam - General 1994 Neurologic gait Overall: no ataxia, no unsteadiness 06/05/2014 None Full Exam - General 1994 Neurologic cranial nerves Overall: crainial nerves 2 - 12 grossly intact 06/05/2014 None Full Exam - General 1994 Psychiatric orientation/consciousness Overall: oriented to person, place and time 06/05/2014 None Full Exam - General 1994 Psychiatric mood and affect Overall: normal mood and affect 06/05/2014 None Full Exam - General 1994 Psychiatric mood and affect Mood: happy 06/05/2014 None Full Exam - General 1994 Psychiatric appearance Overall: well-groomed, good eye contact 06/05/2014 None Full Exam - General 1994 Psychiatric speech Overall: normal quality, quantity, rate 06/05/2014 None Full Exam - General 1994 Constitutional general appearance Overall: well developed 05/08/2014 None Full Exam - General 1994 Constitutional general appearance Overall: in no acute distress 05/08/2014 None Full Exam - General 1994 Constitutional general appearance Overall: well nourished 05/08/2014 None Full Exam - General 1994 Eyes conjunctiva /eyelids Overall: conjunctiva clear 05/08/2014 None Full Exam - General 1994 Eyes conjunctiva /eyelids Overall: cornea clear 05/08/2014 None Full Exam - General 1994 Eyes conjunctiva /eyelids Overall: eyelids normal 05/08/2014 None Full Exam - General 1994 Eyes pupils and irises Overall: pupils equal, round, reactive to light and accomodation 05/08/2014 None Full Exam - General 1994 Ears/Nose/Throat external ear Overall: normal appearance 05/08/2014 None Full Exam - General 1994 Ears/Nose/Throat external ear Overall: normal mastoids 05/08/2014 None Full Exam - General 1994 Ears/Nose/Throat external nose Overall: benign appearance 05/08/2014 None Full Exam - General 1994 Ears/Nose/Throat otoscopic exam Tympanic membrane: tympanosclerosis 05/08/2014 None Full Exam - General 1994 Ears/Nose/Throat internal nose Overall: bilateral nasal cavities clear 05/08/2014 None Full Exam - General 1994 Ears/Nose/Throat lips/teeth/gingiva Overall: benign lips 05/08/2014 None Full Exam - General 1994 Ears/Nose/Throat oral cavity/pharynx/larynx Overall: oral mucosa clear 05/08/2014 None Full Exam - General 1994 Ears/Nose/Throat oral cavity/pharynx/larynx Overall: mobile tongue benign 05/08/2014 None Full Exam - General 1994 Ears/Nose/Throat oral cavity/pharynx/larynx Oral mucosa: moist 05/08/2014 None Full Exam - General 1994 Respiratory auscultation Overall: breath sounds clear bilaterally 05/08/2014 None Full Exam - General 1994 Respiratory respiratory effort/rhythm Overall: no retractions 05/08/2014 None Full Exam - General 1994 Respiratory respiratory effort/rhythm Overall: normal rate 05/08/2014 None Full Exam - General 1994 Cardiovascular extremities Overall: no clubbing 05/08/2014 None Full Exam - General 1994 Cardiovascular extremities Edema present: non-pitting 05/08/2014 faint nonpitting edema bilateral LE Full Exam - General 1994 Cardiovascular auscultation of heart Rate: regular rate 05/08/2014 None Full Exam - General 1994 Cardiovascular auscultation of heart Rhythm: regular rhythm 05/08/2014 None Full Exam - General 1994 Cardiovascular auscultation of heart Systolic murmur grade: II/ 05/08/2014 very faint - best heart at upper right sternal border Full Exam - General 1994 Abdomen abdominal exam Overall: normal bowel sounds 05/08/2014 None Full Exam - General 1994 Abdomen liver and spleen exam Overall: no hepatosplenomegaly 05/08/2014 None Full Exam - General 1994 Abdomen liver and spleen exam Overall: no stigmata of chronic liver disease 05/08/2014 None Full Exam - General 1994 Lymphatic neck nodes Overall: anterior cervical chain benign 05/08/2014 None Full Exam - General 1994 Lymphatic neck nodes Overall: posterior cervical chain benign 05/08/2014 None Full Exam - General 1994 Musculoskeletal digits and nails Nails: a normal exam 05/08/2014 None Full Exam - General 1994 Musculoskeletal head and neck Overall: head atraumatic 05/08/2014 None Full Exam - General 1994 Musculoskeletal head and neck Overall: cervical spine benign 05/08/2014 None Full Exam - General 1994 Neurologic deep tendon reflexes Overall: deep tendon reflexes intact 05/08/2014 None Full Exam - General 1994 Neurologic gait Overall: no ataxia, no unsteadiness 05/08/2014 None Full Exam - General 1994 Neurologic cranial nerves Overall: crainial nerves 2 - 12 grossly intact 05/08/2014 None Full Exam - General 1994 Psychiatric orientation/consciousness Overall: oriented to person, place and time 05/08/2014 None Full Exam - General 1994 Psychiatric mood and affect Overall: normal mood and affect 05/08/2014 None Full Exam - General 1994 Psychiatric mood and affect Mood: happy 05/08/2014 None Full Exam - General 1994 Psychiatric appearance Overall: well-groomed, good eye contact 05/08/2014 None Full Exam - General 1994 Psychiatric speech Overall: normal quality, quantity, rate 05/08/2014 None Full Exam - General 1994 Integument inspection of skin Location: buttocks 05/08/2014 left buttock 8cm x 5cm Full Exam - General 1994 Integument inspection of skin Rash/Lesions: papule 05/08/2014 None Full Exam - General 1994 Integument inspection of skin Pigmentation: erythematous 05/08/2014 None Full Exam - General 1994 Ears/Nose/Throat otoscopic exam Tympanic membrane: air- fluid level 05/08/2014 bilateral maxillary and frontal sinus tenderness Full Exam - General 1994 Abdomen abdominal exam Overall: no tenderness 05/08/2014 None Full Exam - General 1994 Constitutional general appearance Overall: well developed 04/17/2014 None Full Exam - General 1994 Constitutional general appearance Overall: in no acute distress 04/17/2014 None Full Exam - General 1994 Constitutional general appearance Overall: well nourished 04/17/2014 None Full Exam - General 1994 Eyes conjunctiva /eyelids Overall: conjunctiva clear 04/17/2014 None Full Exam - General 1994 Eyes conjunctiva /eyelids Overall: cornea clear 04/17/2014 None Full Exam - General 1994 Eyes conjunctiva /eyelids Overall: eyelids normal 04/17/2014 None Full Exam - General 1994 Eyes pupils and irises Overall: pupils equal, round, reactive to light and accomodation 04/17/2014 None Full Exam - General 1994 Ears/Nose/Throat external ear Overall: normal appearance 04/17/2014 None Full Exam - General 1994 Ears/Nose/Throat external ear Overall: normal mastoids 04/17/2014 None Full Exam - General 1994 Ears/Nose/Throat external nose Overall: benign appearance 04/17/2014 None Full Exam - General 1994 Ears/Nose/Throat otoscopic exam External auditory canal: partial cerumen occlusion 04/17/2014 removed with ear curette Full Exam - General 1994 Ears/Nose/Throat otoscopic exam Tympanic membrane: a normal exam 04/17/2014 None Full Exam - General 1994 Ears/Nose/Throat otoscopic exam Tympanic membrane: tympanosclerosis 04/17/2014 None Full Exam - General 1994 Ears/Nose/Throat internal nose Overall: bilateral nasal cavities clear 04/17/2014 None Full Exam - General 1995 Ears/Nose/Throat lips/teeth/gingiva Overall: benign lips 04/17/2014 None Full Exam - General 1994 Ears/Nose/Throat oral cavity/pharynx/larynx Overall: oral mucosa clear 04/17/2014 None Full Exam - General 1994 Ears/Nose/Throat oral cavity/pharynx/larynx Overall: mobile tongue benign 04/17/2014 None Full Exam - General 1994 Ears/Nose/Throat oral cavity/pharynx/larynx Oral mucosa: moist 04/17/2014 None Full Exam - General 1994 Respiratory auscultation Overall: breath sounds clear bilaterally 04/17/2014 None Full Exam - General 1994 Respiratory respiratory effort/rhythm Overall: no retractions 04/17/2014 None Full Exam - General 1994 Respiratory respiratory effort/rhythm Overall: normal rate 04/17/2014 None Full Exam - General 1994 Cardiovascular inspection of carotid pulses Carotid pulse: carotid bruit 04/17/2014 None Full Exam - General 1994 Cardiovascular extremities Overall: no clubbing 04/17/2014 None Full Exam - General 1994 Cardiovascular extremities Edema present: non-pitting 04/17/2014 faint nonpitting edema bilateral LE Full Exam - General 1994 Cardiovascular auscultation of heart Rate: regular rate 04/17/2014 None Full Exam - General 1994 Cardiovascular auscultation of heart Rhythm: regular rhythm 04/17/2014 None Full Exam - General 1994 Cardiovascular auscultation of heart Systolic murmur grade: II/ 04/17/2014 very faint - best heart at upper right sternal border Full Exam - General 1994 Abdomen abdominal exam Overall: no tenderness 04/17/2014 None Full Exam - General 1994 Abdomen abdominal exam Overall: normal bowel sounds 04/17/2014 None Full Exam - General 1994 Abdomen abdominal exam Periumbilical: non-tender to palpation 04/17/2014 umbilical hernia Full Exam - General 1994 Abdomen liver and spleen exam Overall: no hepatosplenomegaly 04/17/2014 None Full Exam - General 1994 Abdomen liver and spleen exam Overall: no stigmata of chronic liver disease 04/17/2014 None Full Exam - General 1994 Lymphatic neck nodes Overall: anterior cervical chain benign 04/17/2014 None Full Exam - General 1994 Lymphatic neck nodes Overall: posterior cervical chain benign 04/17/2014 None Full Exam - General 1994 Musculoskeletal digits and nails Nails: a normal exam 04/17/2014 None Full Exam - General 1994 Musculoskeletal digits and nails DIPs: first 04/17/2014 ulnar deviation of the DIP Full Exam - General 1994 Musculoskeletal digits and nails DIPs: second 04/17/2014 ulnar deviation of DIP Full Exam - General 1994 Musculoskeletal digits and nails DIPs: nodule 04/17/2014 None Full Exam - General 1994 Musculoskeletal digits and nails DIPs: deformity 04/17/2014 None Full Exam - General 1994 Musculoskeletal digits and nails DIPs: decreased flexion 04/17/2014 None Full Exam - General 1994 Musculoskeletal digits and nails DIPs: decreased extension 04/17/2014 None Full Exam - General 1994 Musculoskeletal digits and nails Deformities/Nodules: heberden's node 04/17/2014 None Full Exam - General 1994 Musculoskeletal spine, ribs and pelvis Posture: kyphosis 04/17/2014 very mild kyphosis Full Exam - General 1994 Musculoskeletal head and neck Overall: head atraumatic 04/17/2014 None Full Exam - General 1994 Musculoskeletal head and neck Overall: cervical spine benign 04/17/2014 None Full Exam - General 1994 Neurologic deep tendon reflexes Overall: deep tendon reflexes intact 04/17/2014 None Full Exam - General 1994 Neurologic gait Overall: no ataxia, no unsteadiness 04/17/2014 None Full Exam - General 1994 Neurologic cranial nerves Overall: crainial nerves 2 - 12 grossly intact 04/17/2014 None Full Exam - General 1994 Psychiatric orientation/consciousness Overall: oriented to person, place and time 04/17/2014 None Full Exam - General 1994 Psychiatric mood and affect Overall: normal mood and affect 04/17/2014 None Full Exam - General 1994 Psychiatric mood and affect Mood: happy 04/17/2014 None Full Exam - General 1994 Psychiatric appearance Overall: well-groomed, good eye contact 04/17/2014 None Full Exam - General 1994 Psychiatric speech Overall: normal quality, quantity, rate 04/17/2014 None Full Exam - General 1994 Integument inspection of skin Location: right arm 04/17/2014 oozing weeping wound Full Exam - General 1994 Constitutional general appearance Overall: well developed 02/27/2014 None Full Exam - General 1994 Constitutional general appearance Overall: in no acute distress 02/27/2014 None Full Exam - General 1994 Constitutional general appearance Overall: well nourished 02/27/2014 None Full Exam - General 1994 Eyes conjunctiva /eyelids Overall: conjunctiva clear 02/27/2014 None Full Exam - General 1994 Eyes conjunctiva /eyelids Overall: cornea clear 02/27/2014 None Full Exam - General 1994 Eyes conjunctiva /eyelids Overall: eyelids normal 02/27/2014 None Full Exam - General 1994 Eyes pupils and irises Overall: pupils equal, round, reactive to light and accomodation 02/27/2014 None Full Exam - General 1994 Ears/Nose/Throat external ear Overall: normal appearance 02/27/2014 None Full Exam - General 1995 Ears/Nose/Throat external ear Overall: normal mastoids 02/27/2014 None Full Exam - General 1995 Ears/Nose/Throat external nose Overall: benign appearance 02/27/2014 None Full Exam - General 1994 Ears/Nose/Throat otoscopic exam External auditory canal: partial cerumen occlusion 02/27/2014 removed with ear curette Full Exam - General 1994 Ears/Nose/Throat otoscopic exam Tympanic membrane: a normal exam 02/27/2014 None Full Exam - General 1994 Ears/Nose/Throat otoscopic exam Tympanic membrane: tympanosclerosis 02/27/2014 None Full Exam - General 1994 Ears/Nose/Throat internal nose Overall: bilateral nasal cavities clear 02/27/2014 None Full Exam - General 1994 Ears/Nose/Throat lips/teeth/gingiva Overall: benign lips 02/27/2014 None Full Exam - General 1994 Ears/Nose/Throat oral cavity/pharynx/larynx Overall: oral mucosa clear 02/27/2014 None Full Exam - General 1994 Ears/Nose/Throat oral cavity/pharynx/larynx Overall: mobile tongue benign 02/27/2014 None Full Exam - General 1994 Ears/Nose/Throat oral cavity/pharynx/larynx Oral mucosa: moist 02/27/2014 None Full Exam - General 1994 Respiratory auscultation Overall: breath sounds clear bilaterally 02/27/2014 None Full Exam - General 1994 Respiratory respiratory effort/rhythm Overall: no retractions 02/27/2014 None Full Exam - General 1994 Respiratory respiratory effort/rhythm Overall: normal rate 02/27/2014 None Full Exam - General 1994 Cardiovascular inspection of carotid pulses Carotid pulse: carotid bruit 02/27/2014 None Full Exam - General 1994 Cardiovascular extremities Overall: no clubbing 02/27/2014 None Full Exam - General 1994 Cardiovascular extremities Edema present: non-pitting 02/27/2014 faint nonpitting edema bilateral LE Full Exam - General 1994 Cardiovascular auscultation of heart Rate: regular rate 02/27/2014 None Full Exam - General 1994 Cardiovascular auscultation of heart Rhythm: regular rhythm 02/27/2014 None Full Exam - General 1994 Cardiovascular auscultation of heart Systolic murmur grade: II/ 02/27/2014 very faint - best heart at upper right sternal border Full Exam - General 1995 Abdomen abdominal exam Overall: no tenderness 02/27/2014 None Full Exam - General 1994 Abdomen abdominal exam Overall: normal bowel sounds 02/27/2014 None Full Exam - General 1994 Abdomen abdominal exam Periumbilical: non-tender to palpation 02/27/2014 umbilical hernia Full Exam - General 1994 Abdomen liver and spleen exam Overall: no hepatosplenomegaly 02/27/2014 None Full Exam - General 1994 Abdomen liver and spleen exam Overall: no stigmata of chronic liver disease 02/27/2014 None Full Exam - General 1994 Lymphatic neck nodes Overall: anterior cervical chain benign 02/27/2014 None Full Exam - General 1994 Lymphatic neck nodes Overall: posterior cervical chain benign 02/27/2014 None Full Exam - General 1994 Musculoskeletal digits and nails Nails: a normal exam 02/27/2014 None Full Exam - General 1994 Musculoskeletal digits and nails DIPs: first 02/27/2014 ulnar deviation of the DIP Full Exam - General 1995 Musculoskeletal digits and nails DIPs: second 02/27/2014 ulnar deviation of DIP Full Exam - General 1995 Musculoskeletal digits and nails DIPs: nodule 02/27/2014 None Full Exam - General 1994 Musculoskeletal digits and nails DIPs: deformity 02/27/2014 None Full Exam - General 1994 Musculoskeletal digits and nails DIPs: decreased flexion 02/27/2014 None Full Exam - General 1994 Musculoskeletal digits and nails DIPs: decreased extension 02/27/2014 None Full Exam - General 1994 Musculoskeletal digits and nails Deformities/Nodules: heberden's node 02/27/2014 None Full Exam - General 1994 Musculoskeletal spine, ribs and pelvis Posture: kyphosis 02/27/2014 very mild kyphosis Full Exam - General 1994 Musculoskeletal head and neck Overall: head atraumatic 02/27/2014 None Full Exam - General 1994 Musculoskeletal head and neck Overall: cervical spine benign 02/27/2014 None Full Exam - General 1994 Neurologic deep tendon reflexes Overall: deep tendon reflexes intact 02/27/2014 None Full Exam - General 1994 Neurologic gait Overall: no ataxia, no unsteadiness 02/27/2014 None Full Exam - General 1994 Neurologic cranial nerves Overall: crainial nerves 2 - 12 grossly intact 02/27/2014 None Full Exam - General 1994 Psychiatric orientation/consciousness Overall: oriented to person, place and time 02/27/2014 None Full Exam - General 1994 Psychiatric mood and affect Overall: normal mood and affect 02/27/2014 None Full Exam - General 1994 Psychiatric mood and affect Mood: happy 02/27/2014 None Full Exam - General 1994 Psychiatric appearance Overall: well-groomed, good eye contact 02/27/2014 None Full Exam - General 1994 Psychiatric speech Overall: normal quality, quantity, rate 02/27/2014 None Full Exam - General 1994 Constitutional general appearance Overall: well developed 12/31/2013 None Full Exam - General 1994 Constitutional general appearance Overall: in no acute distress 12/31/2013 None Full Exam - General 1994 Constitutional general appearance Overall: well nourished 12/31/2013 None Full Exam - General 1994 Eyes conjunctiva /eyelids Overall: conjunctiva clear 12/31/2013 None Full Exam - General 1994 Eyes conjunctiva /eyelids Overall: cornea clear 12/31/2013 None Full Exam - General 1994 Eyes conjunctiva /eyelids Overall: eyelids normal 12/31/2013 None Full Exam - General 1994 Eyes pupils and irises Overall: pupils equal, round, reactive to light and accomodation 12/31/2013 None Full Exam - General 1994 Ears/Nose/Throat external ear Overall: normal appearance 12/31/2013 None Full Exam - General 1995 Ears/Nose/Throat external ear Overall: normal mastoids 12/31/2013 None Full Exam - General 1994 Ears/Nose/Throat external nose Overall: benign appearance 12/31/2013 None Full Exam - General 1995 Ears/Nose/Throat otoscopic exam External auditory canal: partial cerumen occlusion 12/31/2013 removed with ear curette Full Exam - General 1994 Ears/Nose/Throat otoscopic exam Tympanic membrane: a normal exam 12/31/2013 None Full Exam - General 1995 Ears/Nose/Throat otoscopic exam Tympanic membrane: tympanosclerosis 12/31/2013 None Full Exam - General 1995 Ears/Nose/Throat internal nose Overall: bilateral nasal cavities clear 12/31/2013 None Full Exam - General 1994 Ears/Nose/Throat lips/teeth/gingiva Overall: benign lips 12/31/2013 None Full Exam - General 1995 Ears/Nose/Throat oral cavity/pharynx/larynx Overall: oral mucosa clear 12/31/2013 None Full Exam - General 1995 Ears/Nose/Throat oral cavity/pharynx/larynx Overall: mobile tongue benign 12/31/2013 None Full Exam - General 1995 Ears/Nose/Throat oral cavity/pharynx/larynx Oral mucosa: moist 12/31/2013 None Full Exam - General 1994 Respiratory auscultation Overall: breath sounds clear bilaterally 12/31/2013 None Full Exam - General 1994 Respiratory respiratory effort/rhythm Overall: no retractions 12/31/2013 None Full Exam - General 1994 Respiratory respiratory effort/rhythm Overall: normal rate 12/31/2013 None Full Exam - General 1994 Cardiovascular inspection of carotid pulses Carotid pulse: carotid bruit 12/31/2013 None Full Exam - General 1994 Cardiovascular extremities Overall: no clubbing 12/31/2013 None Full Exam - General 1994 Cardiovascular extremities Edema present: non-pitting 12/31/2013 faint nonpitting edema bilateral LE Full Exam - General 1994 Cardiovascular auscultation of heart Rate: regular rate 12/31/2013 None Full Exam - General 1994 Cardiovascular auscultation of heart Rhythm: regular rhythm 12/31/2013 None Full Exam - General 1994 Cardiovascular auscultation of heart Systolic murmur grade: II/ 12/31/2013 very faint - best heart at upper right sternal border Full Exam - General 1994 Abdomen abdominal exam Overall: no tenderness 12/31/2013 None Full Exam - General 1994 Abdomen abdominal exam Overall: normal bowel sounds 12/31/2013 None Full Exam - General 1994 Abdomen abdominal exam Periumbilical: non-tender to palpation 12/31/2013 umbilical hernia Full Exam - General 1994 Abdomen liver and spleen exam Overall: no hepatosplenomegaly 12/31/2013 None Full Exam - General 1994 Abdomen liver and spleen exam Overall: no stigmata of chronic liver disease 12/31/2013 None Full Exam - General 1994 Lymphatic neck nodes Overall: anterior cervical chain benign 12/31/2013 None Full Exam - General 1994 Lymphatic neck nodes Overall: posterior cervical chain benign 12/31/2013 None Full Exam - General 1994 Musculoskeletal digits and nails Nails: a normal exam 12/31/2013 None Full Exam - General 1994 Musculoskeletal digits and nails DIPs: first 12/31/2013 ulnar deviation of the DIP Full Exam - General 1994 Musculoskeletal digits and nails DIPs: second 12/31/2013 ulnar deviation of DIP Full Exam - General 1995 Musculoskeletal digits and nails DIPs: nodule 12/31/2013 None Full Exam - General 1995 Musculoskeletal digits and nails DIPs: deformity 12/31/2013 None Full Exam - General 1995 Musculoskeletal digits and nails DIPs: decreased flexion 12/31/2013 None Full Exam - General 1995 Musculoskeletal digits and nails DIPs: decreased extension 12/31/2013 None Full Exam - General 1995 Musculoskeletal digits and nails Deformities/Nodules: heberden's node 12/31/2013 None Full Exam - General 1994 Musculoskeletal spine, ribs and pelvis Posture: kyphosis 12/31/2013 very mild kyphosis Full Exam - General 1994 Musculoskeletal head and neck Overall: head atraumatic 12/31/2013 None Full Exam - General 1994 Musculoskeletal head and neck Overall: cervical spine benign 12/31/2013 None Full Exam - General 1994 Neurologic deep tendon reflexes Overall: deep tendon reflexes intact 12/31/2013 None Full Exam - General 1994 Neurologic gait Overall: no ataxia, no unsteadiness 12/31/2013 None Full Exam - General 1994 Neurologic cranial nerves Overall: crainial nerves 2 - 12 grossly intact 12/31/2013 None Full Exam - General 1994 Psychiatric orientation/consciousness Overall: oriented to person, place and time 12/31/2013 None Full Exam - General 1994 Psychiatric mood and affect Overall: normal mood and affect 12/31/2013 None Full Exam - General 1994 Psychiatric mood and affect Mood: happy 12/31/2013 None Full Exam - General 1994 Psychiatric appearance Overall: well-groomed, good eye contact 12/31/2013 None Full Exam - General 1994 Psychiatric speech Overall: normal quality, quantity, rate 12/31/2013 None Full Exam - General 1994 Constitutional general appearance Overall: well developed 12/09/2013 None Full Exam - General 1994 Constitutional general appearance Overall: in no acute distress 12/09/2013 None Full Exam - General 1994 Constitutional general appearance Overall: well nourished 12/09/2013 None Full Exam - General 1994 Eyes conjunctiva /eyelids Overall: conjunctiva clear 12/09/2013 None Full Exam - General 1994 Eyes conjunctiva /eyelids Overall: cornea clear 12/09/2013 None Full Exam - General 1994 Eyes conjunctiva /eyelids Overall: eyelids normal 12/09/2013 None Full Exam - General 1994 Eyes pupils and irises Overall: pupils equal, round, reactive to light and accomodation 12/09/2013 None Full Exam - General 1995 Ears/Nose/Throat external ear Overall: normal appearance 12/09/2013 None Full Exam - General 1995 Ears/Nose/Throat external ear Overall: normal mastoids 12/09/2013 None Full Exam - General 1995 Ears/Nose/Throat external nose Overall: benign appearance 12/09/2013 None Full Exam - General 1995 Ears/Nose/Throat otoscopic exam External auditory canal: partial cerumen occlusion 12/09/2013 removed with ear curette Full Exam - General 1995 Ears/Nose/Throat otoscopic exam Tympanic membrane: a normal exam 12/09/2013 None Full Exam - General 1995 Ears/Nose/Throat otoscopic exam Tympanic membrane: tympanosclerosis 12/09/2013 None Full Exam - General 1994 Ears/Nose/Throat internal nose Overall: bilateral nasal cavities clear 12/09/2013 None Full Exam - General 1994 Ears/Nose/Throat lips/teeth/gingiva Overall: benign lips 12/09/2013 None Full Exam - General 1994 Ears/Nose/Throat oral cavity/pharynx/larynx Overall: oral mucosa clear 12/09/2013 None Full Exam - General 1995 Ears/Nose/Throat oral cavity/pharynx/larynx Overall: mobile tongue benign 12/09/2013 None Full Exam - General 1995 Ears/Nose/Throat oral cavity/pharynx/larynx Oral mucosa: moist 12/09/2013 None Full Exam - General 1994 Respiratory auscultation Overall: breath sounds clear bilaterally 12/09/2013 None Full Exam - General 1994 Respiratory respiratory effort/rhythm Overall: no retractions 12/09/2013 None Full Exam - General 1994 Respiratory respiratory effort/rhythm Overall: normal rate 12/09/2013 None Full Exam - General 1994 Cardiovascular inspection of carotid pulses Carotid pulse: carotid bruit 12/09/2013 None Full Exam - General 1994 Cardiovascular extremities Overall: no clubbing 12/09/2013 None Full Exam - General 1994 Cardiovascular extremities Edema present: non-pitting 12/09/2013 faint nonpitting edema bilateral LE Full Exam - General 1994 Cardiovascular auscultation of heart Rate: regular rate 12/09/2013 None Full Exam - General 1994 Cardiovascular auscultation of heart Rhythm: regular rhythm 12/09/2013 None Full Exam - General 1994 Cardiovascular auscultation of heart Systolic murmur grade: II/ 12/09/2013 very faint - best heart at upper right sternal border Full Exam - General 1995 Abdomen abdominal exam Overall: no tenderness 12/09/2013 None Full Exam - General 1995 Abdomen abdominal exam Overall: normal bowel sounds 12/09/2013 None Full Exam - General 1995 Abdomen abdominal exam Periumbilical: non-tender to palpation 12/09/2013 umbilical hernia Full Exam - General 1995 Abdomen liver and spleen exam Overall: no hepatosplenomegaly 12/09/2013 None Full Exam - General 1994 Abdomen liver and spleen exam Overall: no stigmata of chronic liver disease 12/09/2013 None Full Exam - General 1995 Lymphatic neck nodes Overall: anterior cervical chain benign 12/09/2013 None Full Exam - General 1995 Lymphatic neck nodes Overall: posterior cervical chain benign 12/09/2013 None Full Exam - General 1994 Musculoskeletal digits and nails Nails: a normal exam 12/09/2013 None Full Exam - General 1994 Musculoskeletal digits and nails DIPs: first 12/09/2013 ulnar deviation of the DIP Full Exam - General 1995 Musculoskeletal digits and nails DIPs: second 12/09/2013 ulnar deviation of DIP Full Exam - General 1995 Musculoskeletal digits and nails DIPs: nodule 12/09/2013 None Full Exam - General 1994 Musculoskeletal digits and nails DIPs: deformity 12/09/2013 None Full Exam - General 1994 Musculoskeletal digits and nails DIPs: decreased flexion 12/09/2013 None Full Exam - General 1994 Musculoskeletal digits and nails DIPs: decreased extension 12/09/2013 None Full Exam - General 1994 Musculoskeletal digits and nails Deformities/Nodules: heberden's node 12/09/2013 None Full Exam - General 1994 Musculoskeletal spine, ribs and pelvis Posture: kyphosis 12/09/2013 very mild kyphosis Full Exam - General 1994 Musculoskeletal head and neck Overall: head atraumatic 12/09/2013 None Full Exam - General 1994 Musculoskeletal head and neck Overall: cervical spine benign 12/09/2013 None Full Exam - General 1994 Neurologic deep tendon reflexes Overall: deep tendon reflexes intact 12/09/2013 None Full Exam - General 1994 Neurologic gait Overall: no ataxia, no unsteadiness 12/09/2013 None Full Exam - General 1994 Neurologic cranial nerves Overall: crainial nerves 2 - 12 grossly intact 12/09/2013 None Full Exam - General 1994 Psychiatric orientation/consciousness Overall: oriented to person, place and time 12/09/2013 None Full Exam - General 1994 Psychiatric mood and affect Overall: normal mood and affect 12/09/2013 None Full Exam - General 1994 Psychiatric mood and affect Mood: happy 12/09/2013 None Full Exam - General 1994 Psychiatric appearance Overall: well-groomed, good eye contact 12/09/2013 None Full Exam - General 1994 Psychiatric speech Overall: normal quality, quantity, rate 12/09/2013 None Full Exam - General 1994 Constitutional general appearance Overall: well developed 09/09/2013 None Full Exam - General 1994 Constitutional general appearance Overall: in no acute distress 09/09/2013 None Full Exam - General 1994 Constitutional general appearance Overall: well nourished 09/09/2013 None Full Exam - General 1994 Eyes conjunctiva /eyelids Overall: conjunctiva clear 09/09/2013 None Full Exam - General 1994 Eyes conjunctiva /eyelids Overall: cornea clear 09/09/2013 None Full Exam - General 1994 Eyes conjunctiva /eyelids Overall: eyelids normal 09/09/2013 None Full Exam - General 1994 Eyes pupils and irises Overall: pupils equal, round, reactive to light and accomodation 09/09/2013 None Full Exam - General 1994 Ears/Nose/Throat external ear Overall: normal appearance 09/09/2013 None Full Exam - General 1995 Ears/Nose/Throat external ear Overall: normal mastoids 09/09/2013 None Full Exam - General 1995 Ears/Nose/Throat external nose Overall: benign appearance 09/09/2013 None Full Exam - General 1995 Ears/Nose/Throat otoscopic exam External auditory canal: partial cerumen occlusion 09/09/2013 removed with ear curette Full Exam - General 1994 Ears/Nose/Throat otoscopic exam Tympanic membrane: a normal exam 09/09/2013 None Full Exam - General 1995 Ears/Nose/Throat otoscopic exam Tympanic membrane: tympanosclerosis 09/09/2013 None Full Exam - General 1994 Ears/Nose/Throat internal nose Overall: bilateral nasal cavities clear 09/09/2013 None Full Exam - General 1995 Ears/Nose/Throat lips/teeth/gingiva Overall: benign lips 09/09/2013 None Full Exam - General 1995 Ears/Nose/Throat oral cavity/pharynx/larynx Overall: oral mucosa clear 09/09/2013 None Full Exam - General 1995 Ears/Nose/Throat oral cavity/pharynx/larynx Overall: mobile tongue benign 09/09/2013 None Full Exam - General 1995 Ears/Nose/Throat oral cavity/pharynx/larynx Oral mucosa: moist 09/09/2013 None Full Exam - General 1994 Respiratory auscultation Overall: breath sounds clear bilaterally 09/09/2013 None Full Exam - General 1994 Respiratory respiratory effort/rhythm Overall: no retractions 09/09/2013 None Full Exam - General 1994 Respiratory respiratory effort/rhythm Overall: normal rate 09/09/2013 None Full Exam - General 1994 Cardiovascular inspection of carotid pulses Carotid pulse: carotid bruit 09/09/2013 None Full Exam - General 1994 Cardiovascular extremities Overall: no clubbing 09/09/2013 None Full Exam - General 1994 Cardiovascular extremities Edema present: non-pitting 09/09/2013 faint nonpitting edema bilateral LE Full Exam - General 1994 Cardiovascular auscultation of heart Rate: regular rate 09/09/2013 None Full Exam - General 1994 Cardiovascular auscultation of heart Rhythm: regular rhythm 09/09/2013 None Full Exam - General 1994 Cardiovascular auscultation of heart Systolic murmur grade: II/ 09/09/2013 very faint - best heart at upper right sternal border Full Exam - General 1994 Abdomen abdominal exam Overall: no tenderness 09/09/2013 None Full Exam - General 1994 Abdomen abdominal exam Overall: normal bowel sounds 09/09/2013 None Full Exam - General 1994 Abdomen abdominal exam Periumbilical: non-tender to palpation 09/09/2013 umbilical hernia Full Exam - General 1994 Abdomen liver and spleen exam Overall: no hepatosplenomegaly 09/09/2013 None Full Exam - General 1994 Abdomen liver and spleen exam Overall: no stigmata of chronic liver disease 09/09/2013 None Full Exam - General 1994 Lymphatic neck nodes Overall: anterior cervical chain benign 09/09/2013 None Full Exam - General 1994 Lymphatic neck nodes Overall: posterior cervical chain benign 09/09/2013 None Full Exam - General 1994 Musculoskeletal digits and nails Nails: a normal exam 09/09/2013 None Full Exam - General 1994 Musculoskeletal digits and nails DIPs: first 09/09/2013 ulnar deviation of the DIP Full Exam - General 1994 Musculoskeletal digits and nails DIPs: second 09/09/2013 ulnar deviation of DIP Full Exam - General 1994 Musculoskeletal digits and nails DIPs: nodule 09/09/2013 None Full Exam - General 1994 Musculoskeletal digits and nails DIPs: deformity 09/09/2013 None Full Exam - General 1995 Musculoskeletal digits and nails DIPs: decreased flexion 09/09/2013 None Full Exam - General 1994 Musculoskeletal digits and nails DIPs: decreased extension 09/09/2013 None Full Exam - General 1994 Musculoskeletal digits and nails Deformities/Nodules: heberden's node 09/09/2013 None Full Exam - General 1994 Musculoskeletal spine, ribs and pelvis Posture: kyphosis 09/09/2013 very mild kyphosis Full Exam - General 1994 Musculoskeletal head and neck Overall: head atraumatic 09/09/2013 None Full Exam - General 1994 Musculoskeletal head and neck Overall: cervical spine benign 09/09/2013 None Full Exam - General 1994 Neurologic deep tendon reflexes Overall: deep tendon reflexes intact 09/09/2013 None Full Exam - General 1994 Neurologic gait Overall: no ataxia, no unsteadiness 09/09/2013 None Full Exam - General 1994 Neurologic cranial nerves Overall: crainial nerves 2 - 12 grossly intact 09/09/2013 None Full Exam - General 1994 Psychiatric orientation/consciousness Overall: oriented to person, place and time 09/09/2013 None Full Exam - General 1994 Psychiatric mood and affect Overall: normal mood and affect 09/09/2013 None Full Exam - General 1994 Psychiatric mood and affect Mood: happy 09/09/2013 None Full Exam - General 1994 Psychiatric appearance Overall: well-groomed, good eye contact 09/09/2013 None Full Exam - General 1994 Psychiatric speech Overall: normal quality, quantity, rate 09/09/2013 None Full Exam - General 1994 Constitutional general appearance Overall: well developed 06/17/2013 None Full Exam - General 1994 Constitutional general appearance Overall: in no acute distress 06/17/2013 None Full Exam - General 1994 Constitutional general appearance Overall: well nourished 06/17/2013 None Full Exam - General 1994 Eyes conjunctiva /eyelids Overall: conjunctiva clear 06/17/2013 None Full Exam - General 1994 Eyes conjunctiva /eyelids Overall: cornea clear 06/17/2013 None Full Exam - General 1994 Eyes conjunctiva /eyelids Overall: eyelids normal 06/17/2013 None Full Exam - General 1994 Eyes pupils and irises Overall: pupils equal, round, reactive to light and accomodation 06/17/2013 None Full Exam - General 1994 Ears/Nose/Throat external ear Overall: normal appearance 06/17/2013 None Full Exam - General 1994 Ears/Nose/Throat external ear Overall: normal mastoids 06/17/2013 None Full Exam - General 1995 Ears/Nose/Throat external nose Overall: benign appearance 06/17/2013 None Full Exam - General 1995 Ears/Nose/Throat otoscopic exam External auditory canal: partial cerumen occlusion 06/17/2013 removed with ear curette Full Exam - General 1995 Ears/Nose/Throat otoscopic exam Tympanic membrane: a normal exam 06/17/2013 None Full Exam - General 1995 Ears/Nose/Throat otoscopic exam Tympanic membrane: tympanosclerosis 06/17/2013 None Full Exam - General 1994 Ears/Nose/Throat internal nose Overall: bilateral nasal cavities clear 06/17/2013 None Full Exam - General 1994 Ears/Nose/Throat lips/teeth/gingiva Overall: benign lips 06/17/2013 None Full Exam - General 1994 Ears/Nose/Throat oral cavity/pharynx/larynx Overall: oral mucosa clear 06/17/2013 None Full Exam - General 1995 Ears/Nose/Throat oral cavity/pharynx/larynx Overall: mobile tongue benign 06/17/2013 None Full Exam - General 1994 Ears/Nose/Throat oral cavity/pharynx/larynx Oral mucosa: moist 06/17/2013 None Full Exam - General 1994 Respiratory auscultation Overall: breath sounds clear bilaterally 06/17/2013 None Full Exam - General 1994 Respiratory respiratory effort/rhythm Overall: no retractions 06/17/2013 None Full Exam - General 1994 Respiratory respiratory effort/rhythm Overall: normal rate 06/17/2013 None Full Exam - General 1994 Cardiovascular inspection of carotid pulses Carotid pulse: carotid bruit 06/17/2013 None Full Exam - General 1994 Cardiovascular extremities Overall: no clubbing 06/17/2013 None Full Exam - General 1994 Cardiovascular extremities Edema present: non-pitting 06/17/2013 faint nonpitting edema bilateral LE Full Exam - General 1994 Cardiovascular auscultation of heart Rate: regular rate 06/17/2013 None Full Exam - General 1994 Cardiovascular auscultation of heart Rhythm: regular rhythm 06/17/2013 None Full Exam - General 1994 Cardiovascular auscultation of heart Systolic murmur grade: II/ 06/17/2013 very faint - best heart at upper right sternal border Full Exam - General 1994 Abdomen abdominal exam Overall: no tenderness 06/17/2013 None Full Exam - General 1994 Abdomen abdominal exam Overall: normal bowel sounds 06/17/2013 None Full Exam - General 1995 Abdomen abdominal exam Periumbilical: non-tender to palpation 06/17/2013 umbilical hernia Full Exam - General 1994 Abdomen liver and spleen exam Overall: no hepatosplenomegaly 06/17/2013 None Full Exam - General 1995 Abdomen liver and spleen exam Overall: no stigmata of chronic liver disease 06/17/2013 None Full Exam - General 1995 Lymphatic neck nodes Overall: anterior cervical chain benign 06/17/2013 None Full Exam - General 1994 Lymphatic neck nodes Overall: posterior cervical chain benign 06/17/2013 None Full Exam - General 1995 Musculoskeletal digits and nails Nails: a normal exam 06/17/2013 None Full Exam - General 1995 Musculoskeletal digits and nails DIPs: first 06/17/2013 ulnar deviation of the DIP Full Exam - General 1995 Musculoskeletal digits and nails DIPs: second 06/17/2013 ulnar deviation of DIP Full Exam - General 1995 Musculoskeletal digits and nails DIPs: nodule 06/17/2013 None Full Exam - General 1995 Musculoskeletal digits and nails DIPs: deformity 06/17/2013 None Full Exam - General 1994 Musculoskeletal digits and nails DIPs: decreased flexion 06/17/2013 None Full Exam - General 1994 Musculoskeletal digits and nails DIPs: decreased extension 06/17/2013 None Full Exam - General 1994 Musculoskeletal digits and nails Deformities/Nodules: heberden's node 06/17/2013 None Full Exam - General 1994 Musculoskeletal spine, ribs and pelvis Posture: kyphosis 06/17/2013 very mild kyphosis Full Exam - General 1994 Musculoskeletal head and neck Overall: head atraumatic 06/17/2013 None Full Exam - General 1994 Musculoskeletal head and neck Overall: cervical spine benign 06/17/2013 None Full Exam - General 1994 Neurologic deep tendon reflexes Overall: deep tendon reflexes intact 06/17/2013 None Full Exam - General 1994 Neurologic gait Overall: no ataxia, no unsteadiness 06/17/2013 None Full Exam - General 1994 Neurologic cranial nerves Overall: crainial nerves 2 - 12 grossly intact 06/17/2013 None Full Exam - General 1994 Psychiatric orientation/consciousness Overall: oriented to person, place and time 06/17/2013 None Full Exam - General 1994 Psychiatric mood and affect Overall: normal mood and affect 06/17/2013 None Full Exam - General 1994 Psychiatric mood and affect Mood: happy 06/17/2013 None Full Exam - General 1994 Psychiatric appearance Overall: well-groomed, good eye contact 06/17/2013 None Full Exam - General 1994 Psychiatric speech Overall: normal quality, quantity, rate 06/17/2013 None Full Exam - General 1994 Constitutional general appearance Overall: well developed 05/28/2013 None Full Exam - General 1994 Constitutional general appearance Overall: in no acute distress 05/28/2013 None Full Exam - General 1994 Constitutional general appearance Overall: well nourished 05/28/2013 None Full Exam - General 1994 Eyes conjunctiva /eyelids Overall: conjunctiva clear 05/28/2013 None Full Exam - General 1994 Eyes conjunctiva /eyelids Overall: cornea clear 05/28/2013 None Full Exam - General 1994 Eyes conjunctiva /eyelids Overall: eyelids normal 05/28/2013 None Full Exam - General 1994 Eyes pupils and irises Overall: pupils equal, round, reactive to light and accomodation 05/28/2013 None Full Exam - General 1994 Ears/Nose/Throat otoscopic exam External auditory canal: partial cerumen occlusion 05/28/2013 None Full Exam - General 1995 Ears/Nose/Throat otoscopic exam Tympanic membrane: a normal exam 05/28/2013 None Full Exam - General 1995 Ears/Nose/Throat otoscopic exam Tympanic membrane: air- fluid level 05/28/2013 None Full Exam - General 1995 Ears/Nose/Throat otoscopic exam Tympanic membrane: tympanosclerosis 05/28/2013 None Full Exam - General 1994 Ears/Nose/Throat oral cavity/pharynx/larynx Overall: oral mucosa clear 05/28/2013 None Full Exam - General 1995 Ears/Nose/Throat oral cavity/pharynx/larynx Overall: mobile tongue benign 05/28/2013 None Full Exam - General 1994 Ears/Nose/Throat oral cavity/pharynx/larynx Posterior Pharynx: no post nasal drainage 05/28/2013 None Full Exam - General 1994 Respiratory auscultation Overall: breath sounds clear bilaterally 05/28/2013 None Full Exam - General 1994 Respiratory respiratory effort/rhythm Overall: no retractions 05/28/2013 None Full Exam - General 1994 Respiratory respiratory effort/rhythm Overall: normal rate 05/28/2013 None Full Exam - General 1994 Cardiovascular extremities Overall: no clubbing 05/28/2013 None Full Exam - General 1994 Cardiovascular auscultation of heart Rate: regular rate 05/28/2013 None Full Exam - General 1994 Cardiovascular auscultation of heart Rhythm: regular rhythm 05/28/2013 None Full Exam - General 1994 Cardiovascular auscultation of heart Systolic murmur grade: II/ 05/28/2013 very faint - best heart at upper right sternal border Full Exam - General 1995 Abdomen abdominal exam Overall: no tenderness 05/28/2013 None Full Exam - General 1995 Abdomen abdominal exam Overall: normal bowel sounds 05/28/2013 None Full Exam - General 1994 Abdomen abdominal exam Periumbilical: non-tender to palpation 05/28/2013 umbilical hernia Full Exam - General 1995 Abdomen liver and spleen exam Overall: no hepatosplenomegaly 05/28/2013 None Full Exam - General 1995 Abdomen liver and spleen exam Overall: no stigmata of chronic liver disease 05/28/2013 None Full Exam - General 1995 Lymphatic neck nodes Overall: anterior cervical chain benign 05/28/2013 None Full Exam - General 1994 Lymphatic neck nodes Overall: posterior cervical chain benign 05/28/2013 None Full Exam - General 1994 Musculoskeletal spine, ribs and pelvis Posture: kyphosis 05/28/2013 very mild kyphosis Full Exam - General 1994 Musculoskeletal head and neck Overall: head atraumatic 05/28/2013 None Full Exam - General 1994 Musculoskeletal head and neck Overall: cervical spine benign 05/28/2013 None Full Exam - General 1994 Neurologic deep tendon reflexes Overall: deep tendon reflexes intact 05/28/2013 None Full Exam - General 1994 Neurologic gait Overall: no ataxia, no unsteadiness 05/28/2013 None Full Exam - General 1994 Neurologic cranial nerves Overall: crainial nerves 2 - 12 grossly intact 05/28/2013 None Full Exam - General 1994 Psychiatric orientation/consciousness Overall: oriented to person, place and time 05/28/2013 None Full Exam - General 1994 Psychiatric mood and affect Overall: normal mood and affect 05/28/2013 None Full Exam - General 1994 Psychiatric mood and affect Mood: happy 05/28/2013 None Full Exam - General 1994 Psychiatric appearance Overall: well-groomed, good eye contact 05/28/2013 None Full Exam - General 1994 Psychiatric speech Overall: normal quality, quantity, rate 05/28/2013 None Full Exam - General 1994 Constitutional general appearance Overall: well developed 03/12/2013 None Full Exam - General 1994 Constitutional general appearance Overall: in no acute distress 03/12/2013 None Full Exam - General 1994 Constitutional general appearance Overall: well nourished 03/12/2013 None Full Exam - General 1995 Eyes conjunctiva /eyelids Overall: conjunctiva clear 03/12/2013 None Full Exam - General 1995 Eyes conjunctiva /eyelids Overall: cornea clear 03/12/2013 None Full Exam - General 1995 Eyes conjunctiva /eyelids Overall: eyelids normal 03/12/2013 None Full Exam - General 1995 Eyes pupils and irises Overall: pupils equal, round, reactive to light and accomodation 03/12/2013 None Full Exam - General 1995 Ears/Nose/Throat external ear Overall: normal appearance 03/12/2013 None Full Exam - General 1995 Ears/Nose/Throat external ear Overall: normal mastoids 03/12/2013 None Full Exam - General 1995 Ears/Nose/Throat external nose Overall: benign appearance 03/12/2013 None Full Exam - General 1995 Ears/Nose/Throat otoscopic exam External auditory canal: partial cerumen occlusion 03/12/2013 removed with ear curette Full Exam - General 1995 Ears/Nose/Throat otoscopic exam Tympanic membrane: a normal exam 03/12/2013 None Full Exam - General 1995 Ears/Nose/Throat otoscopic exam Tympanic membrane: tympanosclerosis 03/12/2013 None Full Exam - General 1995 Ears/Nose/Throat internal nose Overall: bilateral nasal cavities clear 03/12/2013 None Full Exam - General 1995 Ears/Nose/Throat lips/teeth/gingiva Overall: benign lips 03/12/2013 None Full Exam - General 1995 Ears/Nose/Throat oral cavity/pharynx/larynx Overall: oral mucosa clear 03/12/2013 None Full Exam - General 1995 Ears/Nose/Throat oral cavity/pharynx/larynx Overall: mobile tongue benign 03/12/2013 None Full Exam - General 1995 Ears/Nose/Throat oral cavity/pharynx/larynx Oral mucosa: moist 03/12/2013 None Full Exam - General 1994 Respiratory auscultation Overall: breath sounds clear bilaterally 03/12/2013 None Full Exam - General 1994 Respiratory respiratory effort/rhythm Overall: no retractions 03/12/2013 None Full Exam - General 1994 Respiratory respiratory effort/rhythm Overall: normal rate 03/12/2013 None Full Exam - General 1994 Cardiovascular inspection of carotid pulses Carotid pulse: carotid bruit 03/12/2013 None Full Exam - General 1994 Cardiovascular extremities Overall: no clubbing 03/12/2013 None Full Exam - General 1994 Cardiovascular extremities Edema present: non-pitting 03/12/2013 faint nonpitting edema bilateral LE Full Exam - General 1995 Cardiovascular auscultation of heart Rate: regular rate 03/12/2013 None Full Exam - General 1995 Cardiovascular auscultation of heart Rhythm: regular rhythm 03/12/2013 None Full Exam - General 1995 Cardiovascular auscultation of heart Systolic murmur grade: II/ 03/12/2013 very faint - best heart at upper right sternal border Full Exam - General 1995 Abdomen abdominal exam Overall: no tenderness 03/12/2013 None Full Exam - General 1995 Abdomen abdominal exam Overall: normal bowel sounds 03/12/2013 None Full Exam - General 1995 Abdomen abdominal exam Periumbilical: non-tender to palpation 03/12/2013 umbilical hernia Full Exam - General 1995 Abdomen liver and spleen exam Overall: no hepatosplenomegaly 03/12/2013 None Full Exam - General 1995 Abdomen liver and spleen exam Overall: no stigmata of chronic liver disease 03/12/2013 None Full Exam - General 1995 Lymphatic neck nodes Overall: anterior cervical chain benign 03/12/2013 None Full Exam - General 1995 Lymphatic neck nodes Overall: posterior cervical chain benign 03/12/2013 None Full Exam - General 1995 Musculoskeletal digits and nails Nails: a normal exam 03/12/2013 None Full Exam - General 1995 Musculoskeletal digits and nails DIPs: first 03/12/2013 ulnar deviation of the DIP Full Exam - General 1995 Musculoskeletal digits and nails DIPs: second 03/12/2013 ulnar deviation of DIP Full Exam - General 1995 Musculoskeletal digits and nails DIPs: nodule 03/12/2013 None Full Exam - General 1995 Musculoskeletal digits and nails DIPs: deformity 03/12/2013 None Full Exam - General 1995 Musculoskeletal digits and nails DIPs: decreased flexion 03/12/2013 None Full Exam - General 1995 Musculoskeletal digits and nails DIPs: decreased extension 03/12/2013 None Full Exam - General 1995 Musculoskeletal digits and nails Deformities/Nodules: heberden's node 03/12/2013 None Full Exam - General 1994 Musculoskeletal spine, ribs and pelvis Posture: kyphosis 03/12/2013 very mild kyphosis Full Exam - General 1994 Musculoskeletal head and neck Overall: head atraumatic 03/12/2013 None Full Exam - General 1994 Musculoskeletal head and neck Overall: cervical spine benign 03/12/2013 None Full Exam - General 1994 Neurologic deep tendon reflexes Overall: deep tendon reflexes intact 03/12/2013 None Full Exam - General 1995 Neurologic gait Overall: no ataxia, no unsteadiness 03/12/2013 None Full Exam - General 1995 Neurologic cranial nerves Overall: crainial nerves 2 - 12 grossly intact 03/12/2013 None Full Exam - General 1995 Psychiatric orientation/consciousness Overall: oriented to person, place and time 03/12/2013 None Full Exam - General 1995 Psychiatric mood and affect Overall: normal mood and affect 03/12/2013 None Full Exam - General 1995 Psychiatric mood and affect Mood: happy 03/12/2013 None Full Exam - General 1995 Psychiatric appearance Overall: well-groomed, good eye contact 03/12/2013 None Full Exam - General 1995 Psychiatric speech Overall: normal quality, quantity, rate 03/12/2013 None Full Exam - General 1995 Constitutional general appearance Overall: well developed 01/22/2013 None Full Exam - General 1995 Constitutional general appearance Overall: in no acute distress 01/22/2013 None Full Exam - General 1995 Constitutional general appearance Overall: well nourished 01/22/2013 None Full Exam - General 1995 Eyes conjunctiva /eyelids Overall: conjunctiva clear 01/22/2013 None Full Exam - General 1995 Eyes conjunctiva /eyelids Overall: cornea clear 01/22/2013 None Full Exam - General 1995 Eyes conjunctiva /eyelids Overall: eyelids normal 01/22/2013 None Full Exam - General 1994 Eyes pupils and irises Overall: pupils equal, round, reactive to light and accomodation 01/22/2013 None Full Exam - General 1995 Ears/Nose/Throat external ear Overall: normal appearance 01/22/2013 None Full Exam - General 1995 Ears/Nose/Throat external ear Overall: normal mastoids 01/22/2013 None Full Exam - General 1995 Ears/Nose/Throat external nose Overall: benign appearance 01/22/2013 None Full Exam - General 1995 Ears/Nose/Throat otoscopic exam External auditory canal: partial cerumen occlusion 01/22/2013 removed with ear curette Full Exam - General 1995 Ears/Nose/Throat otoscopic exam Tympanic membrane: a normal exam 01/22/2013 None Full Exam - General 1995 Ears/Nose/Throat otoscopic exam Tympanic membrane: tympanosclerosis 01/22/2013 None Full Exam - General 1995 Ears/Nose/Throat internal nose Overall: bilateral nasal cavities clear 01/22/2013 None Full Exam - General 1995 Ears/Nose/Throat lips/teeth/gingiva Overall: benign lips 01/22/2013 None Full Exam - General 1994 Ears/Nose/Throat oral cavity/pharynx/larynx Overall: oral mucosa clear 01/22/2013 None Full Exam - General 1995 Ears/Nose/Throat oral cavity/pharynx/larynx Overall: mobile tongue benign 01/22/2013 None Full Exam - General 1995 Ears/Nose/Throat oral cavity/pharynx/larynx Oral mucosa: moist 01/22/2013 None Full Exam - General 1994 Respiratory auscultation Overall: breath sounds clear bilaterally 01/22/2013 None Full Exam - General 1994 Respiratory respiratory effort/rhythm Overall: no retractions 01/22/2013 None Full Exam - General 1994 Respiratory respiratory effort/rhythm Overall: normal rate 01/22/2013 None Full Exam - General 1994 Cardiovascular inspection of carotid pulses Carotid pulse: carotid bruit 01/22/2013 None Full Exam - General 1994 Cardiovascular extremities Overall: no clubbing 01/22/2013 None Full Exam - General 1994 Cardiovascular extremities Edema present: non-pitting 01/22/2013 faint nonpitting edema bilateral LE Full Exam - General 1994 Cardiovascular auscultation of heart Rate: regular rate 01/22/2013 None Full Exam - General 1994 Cardiovascular auscultation of heart Rhythm: regular rhythm 01/22/2013 None Full Exam - General 1994 Cardiovascular auscultation of heart Systolic murmur grade: II/ 01/22/2013 very faint - best heart at upper right sternal border Full Exam - General 1994 Abdomen abdominal exam Overall: no tenderness 01/22/2013 None Full Exam - General 1994 Abdomen abdominal exam Overall: normal bowel sounds 01/22/2013 None Full Exam - General 1994 Abdomen abdominal exam Periumbilical: non-tender to palpation 01/22/2013 umbilical hernia Full Exam - General 1994 Abdomen liver and spleen exam Overall: no hepatosplenomegaly 01/22/2013 None Full Exam - General 1994 Abdomen liver and spleen exam Overall: no stigmata of chronic liver disease 01/22/2013 None Full Exam - General 1994 Lymphatic neck nodes Overall: anterior cervical chain benign 01/22/2013 None Full Exam - General 1994 Lymphatic neck nodes Overall: posterior cervical chain benign 01/22/2013 None Full Exam - General 1994 Musculoskeletal digits and nails Nails: a normal exam 01/22/2013 None Full Exam - General 1994 Musculoskeletal digits and nails DIPs: first 01/22/2013 ulnar deviation of the DIP Full Exam - General 1995 Musculoskeletal digits and nails DIPs: second 01/22/2013 ulnar deviation of DIP Full Exam - General 1995 Musculoskeletal digits and nails DIPs: nodule 01/22/2013 None Full Exam - General 1995 Musculoskeletal digits and nails DIPs: deformity 01/22/2013 None Full Exam - General 1995 Musculoskeletal digits and nails DIPs: decreased flexion 01/22/2013 None Full Exam - General 1995 Musculoskeletal digits and nails DIPs: decreased extension 01/22/2013 None Full Exam - General 1995 Musculoskeletal digits and nails Deformities/Nodules: heberden's node 01/22/2013 None Full Exam - General 1995 Musculoskeletal spine, ribs and pelvis Posture: kyphosis 01/22/2013 very mild kyphosis Full Exam - General 1995 Musculoskeletal head and neck Overall: head atraumatic 01/22/2013 None Full Exam - General 1994 Musculoskeletal head and neck Overall: cervical spine benign 01/22/2013 None Full Exam - General 1994 Neurologic deep tendon reflexes Overall: deep tendon reflexes intact 01/22/2013 None Full Exam - General 1994 Neurologic gait Overall: no ataxia, no unsteadiness 01/22/2013 None Full Exam - General 1994 Neurologic cranial nerves Overall: crainial nerves 2 - 12 grossly intact 01/22/2013 None Full Exam - General 1994 Psychiatric orientation/consciousness Overall: oriented to person, place and time 01/22/2013 None Full Exam - General 1994 Psychiatric mood and affect Overall: normal mood and affect 01/22/2013 None Full Exam - General 1994 Psychiatric mood and affect Mood: happy 01/22/2013 None Full Exam - General 1994 Psychiatric appearance Overall: well-groomed, good eye contact 01/22/2013 None Full Exam - General 1994 Psychiatric speech Overall: normal quality, quantity, rate 01/22/2013 None Full Exam - General 1994 Constitutional general appearance Overall: well developed 11/14/2012 None Full Exam - General 1994 Constitutional general appearance Overall: in no acute distress 11/14/2012 None Full Exam - General 1994 Constitutional general appearance Overall: well nourished 11/14/2012 None Full Exam - General 1994 Eyes conjunctiva /eyelids Overall: conjunctiva clear 11/14/2012 None Full Exam - General 1994 Eyes conjunctiva /eyelids Overall: cornea clear 11/14/2012 None Full Exam - General 1994 Eyes conjunctiva /eyelids Overall: eyelids normal 11/14/2012 None Full Exam - General 1994 Eyes pupils and irises Overall: pupils equal, round, reactive to light and accomodation 11/14/2012 None Full Exam - General 1994 Ears/Nose/Throat external ear Overall: normal appearance 11/14/2012 None Full Exam - General 1994 Ears/Nose/Throat external ear Overall: normal mastoids 11/14/2012 None Full Exam - General 1994 Ears/Nose/Throat external nose Overall: benign appearance 11/14/2012 None Full Exam - General 1994 Ears/Nose/Throat otoscopic exam External auditory canal: partial cerumen occlusion 11/14/2012 removed with ear curette Full Exam - General 1994 Ears/Nose/Throat otoscopic exam Tympanic membrane: a normal exam 11/14/2012 None Full Exam - General 1994 Ears/Nose/Throat otoscopic exam Tympanic membrane: tympanosclerosis 11/14/2012 None Full Exam - General 1994 Ears/Nose/Throat internal nose Overall: bilateral nasal cavities clear 11/14/2012 None Full Exam - General 1994 Ears/Nose/Throat lips/teeth/gingiva Overall: benign lips 11/14/2012 None Full Exam - General 1994 Ears/Nose/Throat oral cavity/pharynx/larynx Overall: oral mucosa clear 11/14/2012 None Full Exam - General 1994 Ears/Nose/Throat oral cavity/pharynx/larynx Overall: mobile tongue benign 11/14/2012 None Full Exam - General 1995 Ears/Nose/Throat oral cavity/pharynx/larynx Oral mucosa: moist 11/14/2012 None Full Exam - General 1994 Neck thyroid Size: enlarged gland mildly enlarged gland - no nodularity noted Full Exam - General 1994 Neck thyroid Palpation: a normal exam 11/14/2012 None Full Exam - General 1994 Respiratory auscultation Overall: breath sounds clear bilaterally 11/14/2012 None Full Exam - General 1994 Respiratory respiratory effort/rhythm Overall: no retractions 11/14/2012 None Full Exam - General 1994 Respiratory respiratory effort/rhythm Overall: normal rate 11/14/2012 None Full Exam - General 1994 Cardiovascular inspection of carotid pulses Carotid pulse: carotid bruit 11/14/2012 None Full Exam - General 1994 Cardiovascular extremities Overall: no clubbing 11/14/2012 None Full Exam - General 1994 Cardiovascular extremities Edema present: non-pitting 11/14/2012 faint nonpitting edema bilateral LE Full Exam - General 1994 Cardiovascular auscultation of heart Rate: regular rate 11/14/2012 None Full Exam - General 1994 Cardiovascular auscultation of heart Rhythm: regular rhythm 11/14/2012 None Full Exam - General 1994 Cardiovascular auscultation of heart Systolic murmur grade: II/ 11/14/2012 very faint - best heart at upper right sternal border Full Exam - General 1994 Abdomen abdominal exam Overall: no tenderness 11/14/2012 None Full Exam - General 1994 Abdomen abdominal exam Overall: normal bowel sounds 11/14/2012 None Full Exam - General 1994 Abdomen abdominal exam Periumbilical: non-tender to palpation 11/14/2012 umbilical hernia Full Exam - General 1994 Abdomen liver and spleen exam Overall: no hepatosplenomegaly 11/14/2012 None Full Exam - General 1994 Abdomen liver and spleen exam Overall: no stigmata of chronic liver disease 11/14/2012 None Full Exam - General 1994 Lymphatic neck nodes Overall: anterior cervical chain benign 11/14/2012 None Full Exam - General 1994 Lymphatic neck nodes Overall: posterior cervical chain benign 11/14/2012 None Full Exam - General 1994 Musculoskeletal digits and nails Nails: a normal exam 11/14/2012 None Full Exam - General 1994 Musculoskeletal digits and nails DIPs: first 11/14/2012 ulnar deviation of the DIP Full Exam - General 1994 Musculoskeletal digits and nails DIPs: second 11/14/2012 ulnar deviation of DIP Full Exam - General 1994 Musculoskeletal digits and nails DIPs: nodule 11/14/2012 None Full Exam - General 1994 Musculoskeletal digits and nails DIPs: deformity 11/14/2012 None Full Exam - General 1994 Musculoskeletal digits and nails DIPs: decreased flexion 11/14/2012 None Full Exam - General 1994 Musculoskeletal digits and nails DIPs: decreased extension 11/14/2012 None Full Exam - General 1994 Musculoskeletal digits and nails Deformities/Nodules: heberden's node 11/14/2012 None Full Exam - General 1994 Musculoskeletal lower extremity Palpation - knee: crepitus 11/14/2012 None Full Exam - General 1994 Musculoskeletal spine, ribs and pelvis Posture: kyphosis 11/14/2012 very mild kyphosis Full Exam - General 1994 Musculoskeletal head and neck Overall: head atraumatic 11/14/2012 None Full Exam - General 1994 Musculoskeletal head and neck Overall: cervical spine benign 11/14/2012 None Full Exam - General 1994 Neurologic deep tendon reflexes Overall: deep tendon reflexes intact 11/14/2012 None Full Exam - General 1994 Neurologic gait Overall: no ataxia, no unsteadiness 11/14/2012 None Full Exam - General 1994 Neurologic cranial nerves Overall: crainial nerves 2 - 12 grossly intact 11/14/2012 None Full Exam - General 1994 Psychiatric orientation/consciousness Overall: oriented to person, place and time 11/14/2012 None Full Exam - General 1994 Psychiatric mood and affect Overall: normal mood and affect 11/14/2012 None Full Exam - General 1994 Psychiatric mood and affect Mood: happy 11/14/2012 None Full Exam - General 1995 Psychiatric appearance Overall: well-groomed, good eye contact 11/14/2012 None Full Exam - General 1994 Psychiatric speech Overall: normal quality, quantity, rate 11/14/2012 None Full Exam - General 1994 Constitutional general appearance Overall: well developed 09/12/2012 None Full Exam - General 1994 Constitutional general appearance Overall: in no acute distress 09/12/2012 None Full Exam - General 1994 Constitutional general appearance Overall: well nourished 09/12/2012 None Full Exam - General 1994 Eyes conjunctiva /eyelids Overall: conjunctiva clear 09/12/2012 None Full Exam - General 1995 Eyes conjunctiva /eyelids Overall: cornea clear 09/12/2012 None Full Exam - General 1994 Eyes conjunctiva /eyelids Overall: eyelids normal 09/12/2012 None Full Exam - General 1994 Eyes pupils and irises Overall: pupils equal, round, reactive to light and accomodation 09/12/2012 None Full Exam - General 1995 Ears/Nose/Throat external ear Overall: normal appearance 09/12/2012 None Full Exam - General 1995 Ears/Nose/Throat external ear Overall: normal mastoids 09/12/2012 None Full Exam - General 1995 Ears/Nose/Throat external nose Overall: benign appearance 09/12/2012 None Full Exam - General 1995 Ears/Nose/Throat otoscopic exam External auditory canal: partial cerumen occlusion 09/12/2012 removed with ear curette Full Exam - General 1995 Ears/Nose/Throat otoscopic exam Tympanic membrane: a normal exam 09/12/2012 None Full Exam - General 1995 Ears/Nose/Throat otoscopic exam Tympanic membrane: tympanosclerosis 09/12/2012 None Full Exam - General 1995 Ears/Nose/Throat internal nose Overall: bilateral nasal cavities clear 09/12/2012 None Full Exam - General 1995 Ears/Nose/Throat lips/teeth/gingiva Overall: benign lips 09/12/2012 None Full Exam - General 1994 Ears/Nose/Throat oral cavity/pharynx/larynx Overall: oral mucosa clear 09/12/2012 None Full Exam - General 1995 Ears/Nose/Throat oral cavity/pharynx/larynx Overall: mobile tongue benign 09/12/2012 None Full Exam - General 1994 Neck thyroid Size: enlarged gland mildly enlarged gland - no nodularity noted Full Exam - General 1994 Neck thyroid Palpation: a normal exam 09/12/2012 None Full Exam - General 1994 Respiratory auscultation Overall: breath sounds clear bilaterally 09/12/2012 None Full Exam - General 1994 Respiratory respiratory effort/rhythm Overall: no retractions 09/12/2012 None Full Exam - General 1994 Respiratory respiratory effort/rhythm Overall: normal rate 09/12/2012 None Full Exam - General 1994 Cardiovascular inspection of carotid pulses Carotid pulse: carotid bruit 09/12/2012 None Full Exam - General 1994 Cardiovascular extremities Overall: no clubbing 09/12/2012 None Full Exam - General 1994 Cardiovascular extremities Edema present: non-pitting 09/12/2012 faint nonpitting edema bilateral LE Full Exam - General 1994 Cardiovascular auscultation of heart Rate: regular rate 09/12/2012 None Full Exam - General 1994 Cardiovascular auscultation of heart Rhythm: regular rhythm 09/12/2012 None Full Exam - General 1994 Cardiovascular auscultation of heart Systolic murmur grade: II/ 09/12/2012 very faint - best heart at upper right sternal border Full Exam - General 1994 Abdomen abdominal exam Overall: no tenderness 09/12/2012 None Full Exam - General 1994 Abdomen abdominal exam Overall: normal bowel sounds 09/12/2012 None Full Exam - General 1994 Abdomen abdominal exam Periumbilical: non-tender to palpation 09/12/2012 umbilical hernia Full Exam - General 1994 Abdomen liver and spleen exam Overall: no hepatosplenomegaly 09/12/2012 None Full Exam - General 1994 Abdomen liver and spleen exam Overall: no stigmata of chronic liver disease 09/12/2012 None Full Exam - General 1994 Lymphatic neck nodes Overall: anterior cervical chain benign 09/12/2012 None Full Exam - General 1994 Lymphatic neck nodes Overall: posterior cervical chain benign 09/12/2012 None Full Exam - General 1994 Musculoskeletal digits and nails Nails: a normal exam 09/12/2012 None Full Exam - General 1995 Musculoskeletal digits and nails DIPs: first 09/12/2012 ulnar deviation of the DIP Full Exam - General 1995 Musculoskeletal digits and nails DIPs: second 09/12/2012 ulnar deviation of DIP Full Exam - General 1995 Musculoskeletal digits and nails DIPs: nodule 09/12/2012 None Full Exam - General 1995 Musculoskeletal digits and nails DIPs: deformity 09/12/2012 None Full Exam - General 1995 Musculoskeletal digits and nails DIPs: decreased flexion 09/12/2012 None Full Exam - General 1995 Musculoskeletal digits and nails DIPs: decreased extension 09/12/2012 None Full Exam - General 1995 Musculoskeletal digits and nails Deformities/Nodules: heberden's node 09/12/2012 None Full Exam - General 1995 Musculoskeletal lower extremity Palpation - knee: crepitus 09/12/2012 None Full Exam - General 1995 Musculoskeletal spine, ribs and pelvis Posture: kyphosis 09/12/2012 very mild kyphosis Full Exam - General 1994 Musculoskeletal head and neck Overall: head atraumatic 09/12/2012 None Full Exam - General 1994 Musculoskeletal head and neck Overall: cervical spine benign 09/12/2012 None Full Exam - General 1994 Neurologic deep tendon reflexes Overall: deep tendon reflexes intact 09/12/2012 None Full Exam - General 1994 Neurologic gait Overall: no ataxia, no unsteadiness 09/12/2012 None Full Exam - General 1994 Neurologic cranial nerves Overall: crainial nerves 2 - 12 grossly intact 09/12/2012 None Full Exam - General 1994 Psychiatric orientation/consciousness Overall: oriented to person, place and time 09/12/2012 None Full Exam - General 1994 Psychiatric mood and affect Overall: normal mood and affect 09/12/2012 None Full Exam - General 1994 Psychiatric mood and affect Mood: happy 09/12/2012 None Full Exam - General 1994 Psychiatric appearance Overall: well-groomed, good eye contact 09/12/2012 None Full Exam - General 1994 Psychiatric speech Overall: normal quality, quantity, rate 09/12/2012 None Full Exam - General 1994 Ears/Nose/Throat oral cavity/pharynx/larynx Oral mucosa: moist 09/12/2012 None Full Exam - General 1994 Eyes conjunctiva /eyelids Overall: cornea clear 05/31/2012 None Full Exam - General 1994 Eyes conjunctiva /eyelids Overall: eyelids normal 05/31/2012 None Full Exam - General 1994 Eyes pupils and irises Overall: pupils equal, round, reactive to light and accomodation 05/31/2012 None Full Exam - General 1995 Ears/Nose/Throat external ear Overall: normal appearance 05/31/2012 None Full Exam - General 1995 Ears/Nose/Throat external ear Overall: normal mastoids 05/31/2012 None Full Exam - General 1995 Ears/Nose/Throat external nose Overall: benign appearance 05/31/2012 None Full Exam - General 1995 Ears/Nose/Throat otoscopic exam External auditory canal: partial cerumen occlusion 05/31/2012 removed with ear curette Full Exam - General 1995 Ears/Nose/Throat otoscopic exam Tympanic membrane: a normal exam 05/31/2012 None Full Exam - General 1995 Ears/Nose/Throat otoscopic exam Tympanic membrane: tympanosclerosis 05/31/2012 None Full Exam - General 1994 Ears/Nose/Throat internal nose Overall: bilateral nasal cavities clear 05/31/2012 None Full Exam - General 1994 Ears/Nose/Throat lips/teeth/gingiva Overall: benign lips 05/31/2012 None Full Exam - General 1994 Ears/Nose/Throat oral cavity/pharynx/larynx Overall: oral mucosa clear 05/31/2012 None Full Exam - General 1995 Ears/Nose/Throat oral cavity/pharynx/larynx Overall: mobile tongue benign 05/31/2012 None Full Exam - General 1994 Constitutional general appearance Overall: well developed 05/31/2012 None Full Exam - General 1994 Constitutional general appearance Overall: in no acute distress 05/31/2012 None Full Exam - General 1994 Constitutional general appearance Overall: well nourished 05/31/2012 None Full Exam - General 1994 Eyes conjunctiva /eyelids Overall: conjunctiva clear 05/31/2012 None Full Exam - General 1994 Ears/Nose/Throat oral cavity/pharynx/larynx Posterior Pharynx: no post nasal drainage 05/31/2012 None Full Exam - General 1994 Ears/Nose/Throat oral cavity/pharynx/larynx Oral mucosa: dry 05/31/2012 None Full Exam - General 1994 Cardiovascular extremities Overall: no clubbing 05/31/2012 None Full Exam - General 1994 Cardiovascular extremities Edema present: non-pitting 05/31/2012 faint nonpitting edema bilateral LE Full Exam - General 1994 Cardiovascular auscultation of heart Rate: regular rate 05/31/2012 None Full Exam - General 1994 Cardiovascular auscultation of heart Rhythm: regular rhythm 05/31/2012 None Full Exam - General 1994 Cardiovascular auscultation of heart Systolic murmur grade: II/ 05/31/2012 very faint - best heart at upper right sternal border Full Exam - General 1994 Neck thyroid Size: enlarged gland mildly enlarged gland - no nodularity noted Full Exam - General 1994 Neck thyroid Palpation: a normal exam 05/31/2012 None Full Exam - General 1994 Respiratory auscultation Overall: breath sounds clear bilaterally 05/31/2012 None Full Exam - General 1994 Respiratory respiratory effort/rhythm Overall: no retractions 05/31/2012 None Full Exam - General 1994 Respiratory respiratory effort/rhythm Overall: normal rate 05/31/2012 None Full Exam - General 1994 Abdomen abdominal exam Overall: no tenderness 05/31/2012 None Full Exam - General 1994 Abdomen abdominal exam Overall: normal bowel sounds 05/31/2012 None Full Exam - General 1994 Abdomen abdominal exam Periumbilical: non-tender to palpation 05/31/2012 umbilical hernia Full Exam - General 1994 Abdomen liver and spleen exam Overall: no hepatosplenomegaly 05/31/2012 None Full Exam - General 1994 Abdomen liver and spleen exam Overall: no stigmata of chronic liver disease 05/31/2012 None Full Exam - General 1994 Cardiovascular inspection of carotid pulses Carotid pulse: carotid bruit 05/31/2012 None Full Exam - General 1994 Lymphatic neck nodes Overall: anterior cervical chain benign 05/31/2012 None Full Exam - General 1994 Lymphatic neck nodes Overall: posterior cervical chain benign 05/31/2012 None Full Exam - General 1994 Musculoskeletal digits and nails Nails: a normal exam 05/31/2012 None Full Exam - General 1994 Musculoskeletal digits and nails DIPs: first 05/31/2012 ulnar deviation of the DIP Full Exam - General 1994 Musculoskeletal digits and nails DIPs: second 05/31/2012 ulnar deviation of DIP Full Exam - General 1994 Musculoskeletal digits and nails DIPs: nodule 05/31/2012 None Full Exam - General 1994 Musculoskeletal digits and nails DIPs: deformity 05/31/2012 None Full Exam - General 1994 Musculoskeletal digits and nails DIPs: decreased flexion 05/31/2012 None Full Exam - General 1994 Musculoskeletal digits and nails DIPs: decreased extension 05/31/2012 None Full Exam - General 1994 Musculoskeletal digits and nails Deformities/Nodules: heberden's node 05/31/2012 None Full Exam - General 1995 Musculoskeletal lower extremity Palpation - knee: crepitus 05/31/2012 None Full Exam - General 1995 Musculoskeletal spine, ribs and pelvis Posture: kyphosis 05/31/2012 very mild kyphosis Full Exam - General 1995 Musculoskeletal head and neck Overall: head atraumatic 05/31/2012 None Full Exam - General 1995 Musculoskeletal head and neck Overall: cervical spine benign 05/31/2012 None Full Exam - General 1995 Neurologic deep tendon reflexes Overall: deep tendon reflexes intact 05/31/2012 None Full Exam - General 1995 Neurologic gait Overall: no ataxia, no unsteadiness 05/31/2012 None Full Exam - General 1995 Neurologic cranial nerves Overall: crainial nerves 2 - 12 grossly intact 05/31/2012 None Full Exam - General 1994 Psychiatric orientation/consciousness Overall: oriented to person, place and time 05/31/2012 None Full Exam - General 1994 Psychiatric mood and affect Overall: normal mood and affect 05/31/2012 None Full Exam - General 1994 Psychiatric mood and affect Mood: happy 05/31/2012 None Full Exam - General 1994 Psychiatric appearance Overall: well-groomed, good eye contact 05/31/2012 None Full Exam - General 1994 Psychiatric speech Overall: normal quality, quantity, rate 05/31/2012 None Full Exam - General 1994 Integument inspection of skin Overall: no rash, lesions 05/31/2012 None Full Exam - General 1994 Integument inspection of skin Dermatitis: dryness/ flaking 05/31/2012 over lower legs bilaterally Full Exam - General 1994 Constitutional general appearance Overall: well developed 05/01/2012 None Full Exam - General 1994 Constitutional general appearance Overall: in no acute distress 05/01/2012 None Full Exam - General 1994 Constitutional general appearance Overall: well nourished 05/01/2012 None Full Exam - General 1994 Eyes conjunctiva /eyelids Overall: conjunctiva clear 05/01/2012 None Full Exam - General 1994 Eyes conjunctiva /eyelids Overall: cornea clear 05/01/2012 None Full Exam - General 1994 Eyes conjunctiva /eyelids Overall: eyelids normal 05/01/2012 None Full Exam - General 1994 Eyes pupils and irises Overall: pupils equal, round, reactive to light and accomodation 05/01/2012 None Full Exam - General 1994 Ears/Nose/Throat otoscopic exam External auditory canal: partial cerumen occlusion 05/01/2012 None Full Exam - General 1994 Ears/Nose/Throat otoscopic exam Tympanic membrane: a normal exam 05/01/2012 None Full Exam - General 1994 Ears/Nose/Throat otoscopic exam Tympanic membrane: tympanosclerosis 05/01/2012 None Full Exam - General 1995 Ears/Nose/Throat oral cavity/pharynx/larynx Overall: oral mucosa clear 05/01/2012 None Full Exam - General 1994 Ears/Nose/Throat oral cavity/pharynx/larynx Overall: mobile tongue benign 05/01/2012 None Full Exam - General 1994 Ears/Nose/Throat oral cavity/pharynx/larynx Posterior Pharynx: no post nasal drainage 05/01/2012 None Full Exam - General 1994 Neck thyroid Size: enlarged gland mildly enlarged gland - no nodularity noted Full Exam - General 1994 Neck thyroid Palpation: a normal exam 05/01/2012 None Full Exam - General 1994 Respiratory auscultation Overall: breath sounds clear bilaterally 05/01/2012 None Full Exam - General 1994 Respiratory respiratory effort/rhythm Overall: no retractions 05/01/2012 None Full Exam - General 1994 Respiratory respiratory effort/rhythm Overall: normal rate 05/01/2012 None Full Exam - General 1994 Cardiovascular inspection of carotid pulses Carotid pulse: carotid bruit 05/01/2012 None Full Exam - General 1994 Cardiovascular extremities Overall: no clubbing 05/01/2012 None Full Exam - General 1994 Cardiovascular extremities Edema present: non-pitting 05/01/2012 faint nonpitting edema bilateral LE Full Exam - General 1994 Cardiovascular auscultation of heart Rate: regular rate 05/01/2012 None Full Exam - General 1994 Cardiovascular auscultation of heart Rhythm: regular rhythm 05/01/2012 None Full Exam - General 1994 Cardiovascular auscultation of heart Systolic murmur grade: II/ 05/01/2012 very faint - best heart at upper right sternal border Full Exam - General 1994 Abdomen abdominal exam Overall: no tenderness 05/01/2012 None Full Exam - General 1994 Abdomen abdominal exam Overall: normal bowel sounds 05/01/2012 None Full Exam - General 1994 Abdomen abdominal exam Periumbilical: non-tender to palpation 05/01/2012 umbilical hernia Full Exam - General 1994 Abdomen liver and spleen exam Overall: no hepatosplenomegaly 05/01/2012 None Full Exam - General 1994 Abdomen liver and spleen exam Overall: no stigmata of chronic liver disease 05/01/2012 None Full Exam - General 1995 Lymphatic neck nodes Overall: anterior cervical chain benign 05/01/2012 None Full Exam - General 1995 Lymphatic neck nodes Overall: posterior cervical chain benign 05/01/2012 None Full Exam - General 1995 Musculoskeletal spine, ribs and pelvis Posture: kyphosis 05/01/2012 very mild kyphosis Full Exam - General 1995 Musculoskeletal head and neck Overall: head atraumatic 05/01/2012 None Full Exam - General 1995 Musculoskeletal head and neck Overall: cervical spine benign 05/01/2012 None Full Exam - General 1995 Neurologic deep tendon reflexes Overall: deep tendon reflexes intact 05/01/2012 None Full Exam - General 1995 Neurologic gait Overall: no ataxia, no unsteadiness 05/01/2012 None Full Exam - General 1995 Neurologic cranial nerves Overall: crainial nerves 2 - 12 grossly intact 05/01/2012 None Full Exam - General 1994 Psychiatric orientation/consciousness Overall: oriented to person, place and time 05/01/2012 None Full Exam - General 1994 Psychiatric mood and affect Overall: normal mood and affect 05/01/2012 None Full Exam - General 1994 Psychiatric mood and affect Mood: happy 05/01/2012 None Full Exam - General 1994 Psychiatric appearance Overall: well-groomed, good eye contact 05/01/2012 None Full Exam - General 1994 Psychiatric speech Overall: normal quality, quantity, rate 05/01/2012 None Full Exam - General 1994 Ears/Nose/Throat otoscopic exam Tympanic membrane: air- fluid level 05/01/2012 None Full Exam - General 1995 Constitutional general appearance Overall: well developed 03/22/2012 None Full Exam - General 1994 Constitutional general appearance Overall: in no acute distress 03/22/2012 None Full Exam - General 1994 Constitutional general appearance Overall: well nourished 03/22/2012 None Full Exam - General 1994 Eyes conjunctiva /eyelids Overall: conjunctiva clear 03/22/2012 None Full Exam - General 1994 Eyes conjunctiva /eyelids Overall: cornea clear 03/22/2012 None Full Exam - General 1994 Eyes conjunctiva /eyelids Overall: eyelids normal 03/22/2012 None Full Exam - General 1994 Eyes pupils and irises Overall: pupils equal, round, reactive to light and accomodation 03/22/2012 None Full Exam - General 1994 Ears/Nose/Throat external ear Overall: normal appearance 03/22/2012 None Full Exam - General 1995 Ears/Nose/Throat external ear Overall: normal mastoids 03/22/2012 None Full Exam - General 1995 Ears/Nose/Throat external nose Overall: benign appearance 03/22/2012 None Full Exam - General 1995 Ears/Nose/Throat otoscopic exam External auditory canal: partial cerumen occlusion 03/22/2012 removed with ear curette Full Exam - General 1995 Ears/Nose/Throat otoscopic exam Tympanic membrane: a normal exam 03/22/2012 None Full Exam - General 1995 Ears/Nose/Throat otoscopic exam Tympanic membrane: tympanosclerosis 03/22/2012 None Full Exam - General 1995 Ears/Nose/Throat internal nose Overall: bilateral nasal cavities clear 03/22/2012 None Full Exam - General 1994 Ears/Nose/Throat lips/teeth/gingiva Overall: benign lips 03/22/2012 None Full Exam - General 1994 Ears/Nose/Throat oral cavity/pharynx/larynx Overall: oral mucosa clear 03/22/2012 None Full Exam - General 1994 Ears/Nose/Throat oral cavity/pharynx/larynx Overall: mobile tongue benign 03/22/2012 None Full Exam - General 1995 Ears/Nose/Throat oral cavity/pharynx/larynx Posterior Pharynx: no post nasal drainage 03/22/2012 None Full Exam - General 1994 Cardiovascular extremities Overall: no clubbing 03/22/2012 None Full Exam - General 1994 Cardiovascular extremities Edema present: non-pitting 03/22/2012 faint nonpitting edema bilateral LE Full Exam - General 1994 Cardiovascular auscultation of heart Rate: regular rate 03/22/2012 None Full Exam - General 1994 Cardiovascular auscultation of heart Rhythm: regular rhythm 03/22/2012 None Full Exam - General 1994 Cardiovascular auscultation of heart Systolic murmur grade: II/ 03/22/2012 very faint - best heart at upper right sternal border Full Exam - General 1994 Neck thyroid Size: enlarged gland mildly enlarged gland - no nodularity noted Full Exam - General 1994 Neck thyroid Palpation: a normal exam 03/22/2012 None Full Exam - General 1994 Respiratory auscultation Overall: breath sounds clear bilaterally 03/22/2012 None Full Exam - General 1994 Respiratory respiratory effort/rhythm Overall: no retractions 03/22/2012 None Full Exam - General 1994 Respiratory respiratory effort/rhythm Overall: normal rate 03/22/2012 None Full Exam - General 1995 Abdomen abdominal exam Overall: no tenderness 03/22/2012 None Full Exam - General 1995 Abdomen abdominal exam Overall: normal bowel sounds 03/22/2012 None Full Exam - General 1994 Abdomen abdominal exam Periumbilical: non-tender to palpation 03/22/2012 umbilical hernia Full Exam - General 1995 Abdomen liver and spleen exam Overall: no hepatosplenomegaly 03/22/2012 None Full Exam - General 1995 Abdomen liver and spleen exam Overall: no stigmata of chronic liver disease 03/22/2012 None Full Exam - General 1994 Cardiovascular inspection of carotid pulses Carotid pulse: carotid bruit 03/22/2012 None Full Exam - General 1995 Lymphatic neck nodes Overall: anterior cervical chain benign 03/22/2012 None Full Exam - General 1995 Lymphatic neck nodes Overall: posterior cervical chain benign 03/22/2012 None Full Exam - General 1994 Musculoskeletal digits and nails Nails: a normal exam 03/22/2012 None Full Exam - General 1995 Musculoskeletal digits and nails DIPs: first 03/22/2012 ulnar deviation of the DIP Full Exam - General 1995 Musculoskeletal digits and nails DIPs: second 03/22/2012 ulnar deviation of DIP Full Exam - General 1995 Musculoskeletal digits and nails DIPs: nodule 03/22/2012 None Full Exam - General 1994 Musculoskeletal digits and nails DIPs: deformity 03/22/2012 None Full Exam - General 1995 Musculoskeletal digits and nails DIPs: decreased flexion 03/22/2012 None Full Exam - General 1994 Musculoskeletal digits and nails DIPs: decreased extension 03/22/2012 None Full Exam - General 1994 Musculoskeletal digits and nails Deformities/Nodules: heberden's node 03/22/2012 None Full Exam - General 1994 Musculoskeletal lower extremity Palpation - knee: crepitus 03/22/2012 None Full Exam - General 1994 Musculoskeletal spine, ribs and pelvis Posture: kyphosis 03/22/2012 very mild kyphosis Full Exam - General 1994 Musculoskeletal head and neck Overall: head atraumatic 03/22/2012 None Full Exam - General 1994 Musculoskeletal head and neck Overall: cervical spine benign 03/22/2012 None Full Exam - General 1994 Neurologic deep tendon reflexes Overall: deep tendon reflexes intact 03/22/2012 None Full Exam - General 1994 Neurologic gait Overall: no ataxia, no unsteadiness 03/22/2012 None Full Exam - General 1994 Neurologic cranial nerves Overall: crainial nerves 2 - 12 grossly intact 03/22/2012 None Full Exam - General 1995 Psychiatric orientation/consciousness Overall: oriented to person, place and time 03/22/2012 None Full Exam - General 1995 Psychiatric mood and affect Overall: normal mood and affect 03/22/2012 None Full Exam - General 1995 Psychiatric mood and affect Mood: happy 03/22/2012 None Full Exam - General 1994 Psychiatric appearance Overall: well-groomed, good eye contact 03/22/2012 None Full Exam - General 1994 Psychiatric speech Overall: normal quality, quantity, rate 03/22/2012 None Full Exam - General 1994 Ears/Nose/Throat oral cavity/pharynx/larynx Oral mucosa: dry 03/22/2012 increased moisture than noted on previous exam Full Exam - General 1994 Psychiatric mood and affect Mood: happy 02/20/2012 None Full Exam - General 1994 Psychiatric mood and affect Overall: normal mood and affect 02/20/2012 None Full Exam - General 1994 Psychiatric appearance Overall: well-groomed, good eye contact 02/20/2012 None Full Exam - General 1994 Psychiatric speech Overall: normal quality, quantity, rate 02/20/2012 None Full Exam - General 1994 Neurologic deep tendon reflexes Overall: deep tendon reflexes intact 02/20/2012 None Full Exam - General 1994 Neurologic gait Overall: no ataxia, no unsteadiness 02/20/2012 None Full Exam - General 1994 Neurologic cranial nerves Overall: crainial nerves 2 - 12 grossly intact 02/20/2012 None Full Exam - General 1994 Musculoskeletal digits and nails Nails: a normal exam 02/20/2012 None Full Exam - General 1994 Musculoskeletal digits and nails DIPs: first 02/20/2012 ulnar deviation of the DIP Full Exam - General 1994 Musculoskeletal digits and nails DIPs: second 02/20/2012 ulnar deviation of DIP Full Exam - General 1994 Musculoskeletal digits and nails DIPs: nodule 02/20/2012 None Full Exam - General 1994 Musculoskeletal digits and nails DIPs: deformity 02/20/2012 None Full Exam - General 1994 Musculoskeletal digits and nails DIPs: decreased flexion 02/20/2012 None Full Exam - General 1994 Musculoskeletal digits and nails DIPs: decreased extension 02/20/2012 None Full Exam - General 1994 Psychiatric orientation/consciousness Overall: oriented to person, place and time 02/20/2012 None Full Exam - General 1994 Musculoskeletal digits and nails Deformities/Nodules: heberden's node 02/20/2012 None Full Exam - General 1994 Musculoskeletal lower extremity Palpation - knee: crepitus 02/20/2012 None Full Exam - General 1994 Musculoskeletal spine, ribs and pelvis Posture: kyphosis 02/20/2012 very mild kyphosis Full Exam - General 1994 Musculoskeletal head and neck Overall: head atraumatic 02/20/2012 None Full Exam - General 1994 Musculoskeletal head and neck Overall: cervical spine benign 02/20/2012 None Full Exam - General 1994 Lymphatic neck nodes Overall: anterior cervical chain benign 02/20/2012 None Full Exam - General 1994 Lymphatic neck nodes Overall: posterior cervical chain benign 02/20/2012 None Full Exam - General 1994 Abdomen abdominal exam Overall: no tenderness 02/20/2012 None Full Exam - General 1994 Abdomen abdominal exam Overall: normal bowel sounds 02/20/2012 None Full Exam - General 1994 Abdomen abdominal exam Periumbilical: non-tender to palpation 02/20/2012 umbilical hernia Full Exam - General 1994 Abdomen liver and spleen exam Overall: no hepatosplenomegaly 02/20/2012 None Full Exam - General 1994 Abdomen liver and spleen exam Overall: no stigmata of chronic liver disease 02/20/2012 None Full Exam - General 1994 Cardiovascular auscultation of heart Rate: regular rate 02/20/2012 None Full Exam - General 1994 Cardiovascular auscultation of heart Rhythm: regular rhythm 02/20/2012 None Full Exam - General 1994 Cardiovascular auscultation of heart Systolic murmur grade: II/ 02/20/2012 very faint - best heart at upper right sternal border Full Exam - General 1994 Cardiovascular extremities Overall: no clubbing 02/20/2012 None Full Exam - General 1994 Cardiovascular extremities Edema present: non-pitting 02/20/2012 faint nonpitting edema bilateral LE Full Exam - General 1994 Cardiovascular inspection of carotid pulses Carotid pulse: carotid bruit 02/20/2012 None Full Exam - General 1994 Constitutional general appearance Overall: well nourished 02/20/2012 None Full Exam - General 1994 Constitutional general appearance Overall: well developed 02/20/2012 None Full Exam - General 1994 Constitutional general appearance Overall: in no acute distress 02/20/2012 None Full Exam - General 1994 Eyes pupils and irises Overall: pupils equal, round, reactive to light and accomodation 02/20/2012 None Full Exam - General 1994 Eyes conjunctiva /eyelids Overall: conjunctiva clear 02/20/2012 None Full Exam - General 1994 Eyes conjunctiva /eyelids Overall: eyelids normal 02/20/2012 None Full Exam - General 1994 Eyes conjunctiva /eyelids Overall: cornea clear 02/20/2012 None Full Exam - General 1994 Ears/Nose/Throat external ear Overall: normal appearance 02/20/2012 None Full Exam - General 1994 Ears/Nose/Throat external ear Overall: normal mastoids 02/20/2012 None Full Exam - General 1994 Ears/Nose/Throat external nose Overall: benign appearance 02/20/2012 None Full Exam - General 1994 Ears/Nose/Throat otoscopic exam External auditory canal: partial cerumen occlusion 02/20/2012 removed with ear curette Full Exam - General 1994 Ears/Nose/Throat otoscopic exam Tympanic membrane: a normal exam 02/20/2012 None Full Exam - General 1994 Ears/Nose/Throat otoscopic exam Tympanic membrane: tympanosclerosis 02/20/2012 None Full Exam - General 1994 Ears/Nose/Throat internal nose Overall: bilateral nasal cavities clear 02/20/2012 None Full Exam - General 1994 Ears/Nose/Throat lips/teeth/gingiva Overall: benign lips 02/20/2012 None Full Exam - General 1994 Ears/Nose/Throat oral cavity/pharynx/larynx Overall: oral mucosa clear 02/20/2012 None Full Exam - General 1994 Ears/Nose/Throat oral cavity/pharynx/larynx Overall: mobile tongue benign 02/20/2012 None Full Exam - General 1994 Ears/Nose/Throat oral cavity/pharynx/larynx Oral mucosa: dry 02/20/2012 None Full Exam - General 1994 Ears/Nose/Throat oral cavity/pharynx/larynx Posterior Pharynx: no post nasal drainage 02/20/2012 None Full Exam - General 1994 Neck thyroid Size: enlarged gland mildly enlarged gland - no nodularity noted Full Exam - General 1994 Neck thyroid Palpation: a normal exam 02/20/2012 None Full Exam - General 1994 Respiratory auscultation Overall: breath sounds clear bilaterally 02/20/2012 None Full Exam - General 1994 Respiratory respiratory effort/rhythm Overall: normal rate 02/20/2012 None Full Exam - General 1994 Respiratory respiratory effort/rhythm Overall: no retractions 02/20/2012 None Procedures Procedure Codes Date THER/PROPH/DIAG INJ SC/IM CPT-4: 46053 06/05/2014 TRIAMCINOLONE ACET INJ NOS CPT-4: J3301 06/05/2014 ROCEPHIN, PER 250 MG CPT-4: J0696 06/05/2014 THER/PROPH/DIAG INJ SC/IM CPT-4: 13576 02/27/2014 TRIAMCINOLONE ACET INJ NOS CPT-4: J3301 02/27/2014 ROUTINE VENIPUNCTURE CPT-4: 41832 12/31/2013 [id number] EST. PATIENT, LEVEL IV CPT-4: 99754 09/09/2013 ROUTINE VENIPUNCTURE CPT-4: 40548 09/09/2013 PRESCRIP TRANSMIT VIA ERX SY CPT-4: G8553 09/09/2013 PRESCRIP TRANSMIT VIA ERX SY CPT-4: G8553 06/17/2013 TRIAMCINOLONE ACET INJ NOS CPT-4: J3301 05/28/2013 ROCEPHIN, PER 250 MG CPT-4: J0696 05/28/2013 PRESCRIP TRANSMIT VIA ERX SY CPT-4: G8553 05/28/2013 ROUTINE VENIPUNCTURE CPT-4: 38265 03/12/2013 PRESCRIP TRANSMIT VIA ERX SY CPT-4: G8553 01/22/2013 PRESCRIP TRANSMIT VIA ERX SY CPT-4: G8553 09/12/2012 PRESCRIP TRANSMIT VIA ERX SY CPT-4: G8553 05/31/2012 ROCEPHIN, PER 250 MG CPT-4: J0696 05/01/2012 THER/PROPH/DIAG INJ SC/IM CPT-4: 37818 05/01/2012 TRIAMCINOLONE ACET INJ NOS CPT-4: J3301 05/01/2012 PRESCRIP TRANSMIT VIA ERX SY CPT-4: G8553 05/01/2012 ADMIN INFLUENZA VIRUS VAC CPT-4: G0008 03/22/2012 FLULAVAL VACC, 3 YRS & >, IM CPT-4: Q2036 03/22/2012 Vital Signs Date Vital 03/29/2018 Blood Pressure 1: 132/74 Code : 8480-6 Heart Rate 1: 47 bpm Height: SpO2: 97% Weight: 03/01/2018 Blood Pressure 1: 118/74 Code : 8480-6 Heart Rate 1: 78 bpm Height: SpO2: 97% Weight: 02/13/2018 Blood Pressure 1: 130/80 Code : 8480-6 Heart Rate 1: 56 bpm Height: SpO2: 96% Weight: 01/15/2018 Blood Pressure 1: 134/68 Code : 8480-6 BMI: 27.6 Code : 73437-7 Heart Rate 1 : 58 bpm Height: 5'1" SpO2: 95% Weight: 146 lbs 10/03/2017 Blood Pressure 1: 134/70 Code : 8480-6 BMI: 28.0 Code : 54741-6 Heart Rate 1 : 53 bpm Height: 5'1" SpO2: 96% Weight: 148 lbs 09/19/2017 Blood Pressure 1: 132/64 Code : 8480-6 BMI: 28.0 Code : 14244-7 Heart Rate 1 : 53 bpm Height: 5'1" SpO2: 97% Weight: 148 lbs 07/06/2017 Blood Pressure 1: 150/74 Code : 8480-6 BMI: 28.0 Code : 89834-9 Heart Rate 1 : 60 bpm Height: 5'1" SpO2: 94% Weight: 148 lbs 04/04/2017 Blood Pressure 1: 124/66 Code : 8480-6 BMI: 27.0 Code : 39718-4 Heart Rate 1 : 60 bpm Height: 5'1" SpO2: 96% Weight: 143 lbs 02/28/2017 Blood Pressure 1: 156/80 Code : 8480-6 Blood Pressure 1: 128/70 Code: 8480-6 BMI: 27.1 Code: 58018-6 Heart Rate 1: 53 bpm Height: 5'1" SpO2: 94% Weight: 143 lbs 8 oz 11/29/2016 Blood Pressure 1: 128/58 Code : 8480-6 BMI: 26.6 Code : 05222-9 Heart Rate 1 : 63 bpm Height: 5'1" SpO2: 97% Weight: 141 lbs 11/02/2016 Blood Pressure 1: 128/76 Code : 8480-6 BMI: 26.1 Code : 21787-6 Heart Rate 1 : 51 bpm Height: 5'1" SpO2: 95% Weight: 138 lbs 08/30/2016 Blood Pressure 1: 132/68 Code : 8480-6 BMI: 25.9 Code : 92241-1 Heart Rate 1 : 54 bpm Height: 5'1" SpO2: 94% Weight: 137 lbs 05/03/2016 Blood Pressure 1: 136/74 Code : 8480-6 BMI: 25.9 Code : 12458-9 Heart Rate 1 : 52 bpm Height: 5'1" SpO2: 96% Weight: 137 lbs 02/02/2016 Blood Pressure 1: 124/58 Code : 8480-6 BMI: 25.1 Code : 00411-7 Heart Rate 1 : 56 bpm Height: 5'1" SpO2: 95% Weight: 133 lbs 12/30/2015 Blood Pressure 1: 146/74 Code : 8480-6 BMI: 25.2 Code : 32431-5 Heart Rate 1 : 57 bpm Height: 5'1" SpO2: 98% Weight: 133 lbs 8 oz 11/03/2015 Blood Pressure 1: 138/80 Code : 8480-6 BMI: 25.1 Code : 28497-4 Heart Rate 1 : 59 bpm Height: 5'1" SpO2: 95% Weight: 133 lbs 09/02/2015 Blood Pressure 1: 130/78 Code : 8480-6 BMI: 25.3 Code : 23629-1 Heart Rate 1 : 53 bpm Height: 5'1" SpO2: 97% Weight: 134 lbs 08/04/2015 Blood Pressure 1: 170/70 Code : 8480-6 Blood Pressure 1: 180/80 Code: 8480-6 BMI: 25.7 Code: 83197-9 Heart Rate 1: 62 bpm Height: 5'1" SpO2: 94% Weight: 136 lbs 05/05/2015 Blood Pressure 1: 138/72 Code : 8480-6 BMI: 25.7 Code : 91994-7 Heart Rate 1 : 60 bpm Height: 5'1" SpO2: 96% Weight: 136 lbs 04/15/2015 Blood Pressure 1: 162/72 Code : 8480-6 BMI: 25.3 Code : 88329-6 Heart Rate 1 : 60 bpm Height: 5'1" SpO2: 96% Weight: 134 lbs 02/03/2015 Blood Pressure 1: 148/80 Code : 8480-6 BMI: 25.1 Code : 38538-0 Heart Rate 1 : 56 bpm Height: 5'1" SpO2: 94% Weight: 133 lbs 12/02/2014 Blood Pressure 1: 140/60 Code : 8480-6 BMI: 24.8 Code : 81981-3 Heart Rate 1 : 55 bpm Height: 5'1" SpO2: 94% Weight: 131 lbs 10/14/2014 Blood Pressure 1: 132/76 Code : 8480-6 BMI: 24.6 Code : 34040-5 Heart Rate 1 : 64 bpm Height: 5'1" Weight: 130 lbs 07/17/2014 Blood Pressure 1: 130/70 Code : 8480-6 BMI: 24.6 Code : 40691-5 Heart Rate 1 : 70 bpm Height: 5'1" Weight: 130 lbs 06/05/2014 Blood Pressure 1: 116/68 Code : 8480-6 BMI: 25.7 Code : 94468-4 Heart Rate 1 : 60 bpm Height: 5'1" Weight: 136 lbs 05/08/2014 Blood Pressure 1: 152/60 Code : 8480-6 BMI: 25.9 Code : 77992-7 Heart Rate 1 : 56 bpm Height: 5'1" Weight: 137 lbs 04/17/2014 Blood Pressure 1: 150/60 Code : 8480-6 BMI: 25.7 Code : 37078-2 Heart Rate 1 : 80 bpm Height: 5'1" Weight: 136 lbs 02/27/2014 Blood Pressure 1: 132/76 Code : 8480-6 BMI: 26.3 Code : 92870-5 Heart Rate 1 : 74 bpm Height: 5'1" SpO2: 97% Weight: 139 lbs 12/31/2013 Blood Pressure 1: 180/60 Code : 8480-6 BMI: 26.1 Code : 18492-2 Heart Rate 1 : 56 bpm Height: 5'1" Weight: 138 lbs 12/09/2013 Blood Pressure 1: 130/65 Code : 8480-6 BMI: 27.2 Code : 87455-4 Heart Rate 1 : 56 bpm Height: 5'1" Weight: 144 lbs 09/09/2013 Blood Pressure 1: 146/60 Code : 8480-6 BMI: 26.8 Code : 53384-8 Heart Rate 1 : 60 bpm Height: 5'1" Weight: 142 lbs 06/17/2013 Blood Pressure 1: 134/78 Code : 8480-6 BMI: 27.4 Code : 36410-7 Heart Rate 1 : 60 bpm Height: 5'1" Weight: 145 lbs 05/28/2013 Blood Pressure 1: 164/64 Code : 8480-6 BMI: 27.2 Code : 06753-3 Heart Rate 1 : 56 bpm Height: 5'1" Temperature: 36.7 (C) / 98.0 (F) Weight: 144 lbs 03/12/2013 Blood Pressure 1: 118/60 Code : 8480-6 BMI: 29.1 Code : 87019-0 Heart Rate 1 : 64 bpm Height: 5'1" Weight: 154 lbs 01/22/2013 Blood Pressure 1: 142/68 Code : 8480-6 Heart Rate 1: 68 bpm Weight: 151 lbs 11/14/2012 Blood Pressure 1: 126/78 Code : 8480-6 BMI: 28.5 Code : 87282-2 Heart Rate 1 : 64 bpm Height: 5'1" Weight: 151 lbs 09/12/2012 Blood Pressure 1: 166/90 Code : 8480-6 BMI: 28.5 Code : 52141-9 Heart Rate 1 : 60 bpm Height: 5'1" Weight: 151 lbs 05/31/2012 Blood Pressure 1: 170/72 Code : 8480-6 Heart Rate 1: 64 bpm Respiratory Rate : 16 bpm Weight: 136 lbs 05/01/2012 Blood Pressure 1: 130/72 Code : 8480-6 Heart Rate 1: 88 bpm Weight: 138 lbs 03/22/2012 Blood Pressure 1: 138/70 Code : 8480-6 Heart Rate 1: 92 bpm Weight: 167 lbs 02/20/2012 Blood Pressure 1: 150/78 Code : 8480-6 BMI: 32.3 Code : 38280-8 Height: 5'1" SpO2: 93% Weight: 171 lbs Functional Status No Functional Status data History of Present Illness Symptom Name Status Result Effective Date Notes hypertension Quality chronic 03/29/2018 None hypertension Quality primary hypertension 03/29/2018 None hypertension Onset and Resolution ongoing 03/29/2018 None hypertension Onset of Symptom during adulthood 03/29/2018 None hypertension Blood Pressure Values patient checking blood pressure at home - did not bring in readings 03/29/2018 None hypertension Severity mild 03/29/2018 None hypertension Significant Medical Conditions cerebrovascular accident 03/29/2018 None hypertension Alleviating Factors medication 03/29/2018 None hypertension Pertinent Findings Denies dizziness 03/29/2018 None hypertension Pertinent Findings Denies dyspnea 03/29/2018 "not really" hypertension Pertinent Findings Denies edema 03/29/2018 None hypothyroid Quality chronic 03/29/2018 None hypothyroid Onset and Resolution ongoing 03/29/2018 None hypothyroid Alleviating Factors medication 03/29/2018 None mental status change Quality lethargy 03/29/2018 None mental status change Onset of Symptom 2 weeks ago 03/29/2018 None mental status change Pertinent Findings Denies cough 03/29/2018 None mental status change Pertinent Findings Denies lightheadedness 03/29/2018 None hypertension Quality chronic 03/01/2018 None hypertension Quality primary hypertension 03/01/2018 None hypertension Onset and Resolution ongoing 03/01/2018 None hypertension Onset of Symptom during adulthood 03/01/2018 None hypertension Blood Pressure Values patient checking blood pressure at home - did not bring in readings 03/01/2018 None hypertension Severity mild 03/01/2018 None hypertension Significant Medical Conditions cerebrovascular accident 03/01/2018 None hypertension Alleviating Factors medication 03/01/2018 None hypertension Pertinent Findings Denies dizziness 03/01/2018 None hypertension Pertinent Findings Denies dyspnea 03/01/2018 "not really" hypertension Pertinent Findings Denies edema 03/01/2018 None hypothyroid Quality chronic 03/01/2018 None hypothyroid Onset and Resolution ongoing 03/01/2018 None hypothyroid Alleviating Factors medication 03/01/2018 None mental status change Quality lethargy 03/01/2018 None mental status change Onset of Symptom 2 weeks ago 03/01/2018 None mental status change Pertinent Findings Denies cough 03/01/2018 None mental status change Pertinent Findings Denies lightheadedness 03/01/2018 None hypertension Quality chronic 02/13/2018 None hypertension Quality primary hypertension 02/13/2018 None hypertension Onset and Resolution ongoing 02/13/2018 None hypertension Onset of Symptom during adulthood 02/13/2018 None hypertension Blood Pressure Values patient checking blood pressure at home - did not bring in readings 02/13/2018 None hypertension Severity mild 02/13/2018 None hypertension Significant Medical Conditions cerebrovascular accident 02/13/2018 None hypertension Alleviating Factors medication 02/13/2018 None hypertension Pertinent Findings Denies dizziness 02/13/2018 None hypertension Pertinent Findings Denies dyspnea 02/13/2018 "not really" hypertension Pertinent Findings Denies edema 02/13/2018 None hypothyroid Quality chronic 02/13/2018 None hypothyroid Onset and Resolution ongoing 02/13/2018 None hypothyroid Alleviating Factors medication 02/13/2018 None mental status change Quality lethargy 02/13/2018 None mental status change Onset of Symptom 2 weeks ago 02/13/2018 None mental status change Pertinent Findings Denies cough 02/13/2018 None mental status change Pertinent Findings Denies lightheadedness 02/13/2018 None hypertension Quality chronic 01/15/2018 None hypertension Quality primary hypertension 01/15/2018 None hypertension Onset and Resolution ongoing 01/15/2018 None hypertension Onset of Symptom during adulthood 01/15/2018 None hypertension Severity mild 01/15/2018 None hypertension Significant Medical Conditions cerebrovascular accident 01/15/2018 None hypertension Alleviating Factors medication 01/15/2018 None hypertension Pertinent Findings Denies dizziness 01/15/2018 None hypertension Pertinent Findings Denies dyspnea 01/15/2018 "not really" hypertension Pertinent Findings Denies edema 01/15/2018 None hypothyroid Quality chronic 01/15/2018 None hypothyroid Onset and Resolution ongoing 01/15/2018 None hypothyroid Alleviating Factors medication 01/15/2018 None hypertension Blood Pressure Values patient checking blood pressure at home - did not bring in readings 01/15/2018 None hypertension Quality chronic 10/03/2017 None hypertension Quality primary hypertension 10/03/2017 None hypertension Onset and Resolution ongoing 10/03/2017 None hypertension Onset of Symptom during adulthood 10/03/2017 None hypertension Blood Pressure Values pt checking blood pressure - see scanned document 10/03/2017 None hypertension Severity mild 10/03/2017 None hypertension Significant Medical Conditions cerebrovascular accident 10/03/2017 None hypertension Alleviating Factors medication 10/03/2017 None hypertension Pertinent Findings Denies dizziness 10/03/2017 None hypertension Pertinent Findings Denies dyspnea 10/03/2017 None oral pain Location diffusely 10/03/2017 None oral pain Quality burning 10/03/2017 None oral pain Onset and Resolution ongoing 10/03/2017 None oral pain Pertinent Findings pain with oral intake 10/03/2017 None elbow pain Location on the left 10/03/2017 None elbow pain Quality dull pain 10/03/2017 None elbow pain Quality tenderness 10/03/2017 None elbow pain Quality acute 10/03/2017 None elbow pain Onset of Symptom 3 weeks ago 10/03/2017 None elbow pain Pertinent Findings Denies decreased range of motion 10/03/2017 None elbow pain Pertinent Findings Denies redness 10/03/2017 None elbow pain Pertinent Findings Denies sensation of slipping out of joint 10/03/2017 None elbow pain Pertinent Findings Denies stiffness 10/03/2017 None hypertension Pertinent Findings Denies edema 10/03/2017 None hypertension Pertinent Findings Denies decreased energy 10/03/2017 None hypertension Pertinent Findings Denies anxiety 10/03/2017 None dysphagia Location in the oropharyngeal area 09/19/2017 None dysphagia Quality improving 09/19/2017 None dysphagia Pertinent Findings Denies fever 09/19/2017 None hypertension Quality chronic 07/06/2017 None hypertension Quality primary hypertension 07/06/2017 None hypertension Onset and Resolution ongoing 07/06/2017 None hypertension Onset of Symptom during adulthood 07/06/2017 None hypertension Blood Pressure Values pt checking blood pressure - see scanned document 07/06/2017 None hypertension Severity mild 07/06/2017 None hypertension Significant Medical Conditions cerebrovascular accident 07/06/2017 None hypertension Alleviating Factors medication 07/06/2017 None hypertension Pertinent Findings Denies dizziness 07/06/2017 None hypertension Pertinent Findings Denies dyspnea 07/06/2017 None oral pain Location diffusely 07/06/2017 None oral pain Quality burning 07/06/2017 None oral pain Onset and Resolution ongoing 07/06/2017 None oral pain Pertinent Findings pain with oral intake 07/06/2017 None elbow pain Location on the left 07/06/2017 None elbow pain Quality dull pain 07/06/2017 None elbow pain Quality tenderness 07/06/2017 None elbow pain Quality acute 07/06/2017 None elbow pain Onset of Symptom 3 weeks ago 07/06/2017 None elbow pain Pertinent Findings Denies decreased range of motion 07/06/2017 None elbow pain Pertinent Findings Denies redness 07/06/2017 None elbow pain Pertinent Findings Denies sensation of slipping out of joint 07/06/2017 None elbow pain Pertinent Findings Denies stiffness 07/06/2017 None hypertension Quality chronic 04/04/2017 None hypertension Quality primary hypertension 04/04/2017 None hypertension Onset and Resolution ongoing 04/04/2017 None hypertension Onset of Symptom during adulthood 04/04/2017 None hypertension Severity mild 04/04/2017 None hypertension Significant Medical Conditions cerebrovascular accident 04/04/2017 None hypertension Alleviating Factors medication 04/04/2017 None hypertension Pertinent Findings Denies dizziness 04/04/2017 None oral pain Location diffusely 04/04/2017 None oral pain Quality burning 04/04/2017 None oral pain Pertinent Findings pain with oral intake 04/04/2017 None hypertension Blood Pressure Values pt checking blood pressure - see scanned document 04/04/2017 None hypertension Pertinent Findings Denies dyspnea 04/04/2017 None oral pain Onset and Resolution ongoing 04/04/2017 None hypertension Quality chronic 02/28/2017 None hypertension Quality primary hypertension 02/28/2017 None hypertension Onset and Resolution ongoing 02/28/2017 None hypertension Onset of Symptom during adulthood 02/28/2017 None hypertension Severity mild 02/28/2017 None hypertension Significant Medical Conditions cerebrovascular accident 02/28/2017 None hypertension Alleviating Factors medication 02/28/2017 None hypertension Pertinent Findings Denies dizziness 02/28/2017 None oral pain Location diffusely 02/28/2017 None oral pain Quality burning 02/28/2017 None oral pain Onset and Resolution sudden in onset 02/28/2017 None oral pain Onset of Symptom _ days ago 02/28/2017 None oral pain Pertinent Findings pain with oral intake 02/28/2017 None hypertension Quality chronic 11/29/2016 None hypertension Onset and Resolution ongoing 11/29/2016 None hypertension Onset of Symptom during adulthood 11/29/2016 None hypertension Severity mild 11/29/2016 None hypertension Significant Medical Conditions cerebrovascular accident 11/29/2016 None hypertension Quality primary hypertension 11/29/2016 None hypertension Pertinent Findings Denies dizziness 11/29/2016 None hypertension Alleviating Factors medication 11/29/2016 None hypertension Quality chronic 11/02/2016 None hypertension Onset and Resolution ongoing 11/02/2016 None hypertension Onset of Symptom during adulthood 11/02/2016 None hypertension Severity mild 11/02/2016 None hypertension Significant Medical Conditions cerebrovascular accident 11/02/2016 None hypertension Quality chronic 08/30/2016 None hypertension Onset and Resolution ongoing 08/30/2016 None hypertension Onset of Symptom during adulthood 08/30/2016 None hypertension Blood Pressure Values patient checking blood pressure at home - did not bring in readings 08/30/2016 None hypertension Severity mild 08/30/2016 None hypertension Alleviating Factors medication 08/30/2016 None hypertension Exacerbating Factors stress 08/30/2016 None hypertension Pertinent Findings anxiety 08/30/2016 None anxiety Quality agitation 08/30/2016 None anxiety Quality intermittent 08/30/2016 None anxiety Onset of Symptom during adulthood 08/30/2016 None anxiety Alleviating Factors medication 08/30/2016 (xanax) hypertension Pertinent Findings Denies dizziness 08/30/2016 None hypertension Pertinent Findings Denies dyspnea 08/30/2016 None hypertension Pertinent Findings Denies edema 08/30/2016 None anxiety Pertinent Findings Denies dizziness 08/30/2016 None anxiety Pertinent Findings Denies dyspnea 08/30/2016 None anxiety Pertinent Findings Denies nausea 08/30/2016 None anxiety Pertinent Findings Denies lightheadedness 08/30/2016 None oral pain Location diffusely 08/30/2016 None oral pain Location on the mobile tongue 08/30/2016 et top of the mouth oral pain Onset and Resolution ongoing 08/30/2016 None oral pain Pertinent Findings Denies ill contacts 08/30/2016 None oral pain Pertinent Findings oral ulcers 08/30/2016 None oral pain Pertinent Findings Denies pain with oral intake 08/30/2016 None oral pain Pertinent Findings Denies vomiting 08/30/2016 None tinnitus Location diffusely 08/30/2016 None tinnitus Quality ringing 08/30/2016 in her head tinnitus Onset and Resolution sudden in onset 08/30/2016 None tinnitus Pertinent Findings Denies hearing change 08/30/2016 None tinnitus Pertinent Findings Denies sensory changes 08/30/2016 None tinnitus Exacerbating Factors loud noises 08/30/2016 None hypertension Quality chronic 05/03/2016 None hypertension Onset and Resolution ongoing 05/03/2016 None hypertension Onset of Symptom during adulthood 05/03/2016 None hypertension Blood Pressure Values patient checking blood pressure at home - did not bring in readings 05/03/2016 None hypertension Severity mild 05/03/2016 None hypertension Alleviating Factors medication 05/03/2016 None hypertension Exacerbating Factors stress 05/03/2016 None hypertension Pertinent Findings anxiety 05/03/2016 None anxiety Quality agitation 05/03/2016 None anxiety Quality intermittent 05/03/2016 None anxiety Onset of Symptom during adulthood 05/03/2016 None anxiety Alleviating Factors medication 05/03/2016 (xanax) hypertension Quality chronic 02/02/2016 None hypertension Onset and Resolution ongoing 02/02/2016 None hypertension Onset of Symptom during adulthood 02/02/2016 None hypertension Severity mild 02/02/2016 None hypertension Alleviating Factors medication 02/02/2016 None hypertension Exacerbating Factors stress 02/02/2016 None hypertension Pertinent Findings anxiety 02/02/2016 None anxiety Quality agitation 02/02/2016 None anxiety Onset and Resolution ongoing 02/02/2016 None hypertension Blood Pressure Values patient checking blood pressure at home - did not bring in readings 02/02/2016 None anxiety Quality intermittent 02/02/2016 None anxiety Onset of Symptom during adulthood 02/02/2016 None anxiety Alleviating Factors medication 02/02/2016 (xanax) hypertension Quality chronic 12/30/2015 None hypertension Onset and Resolution ongoing 12/30/2015 None hypertension Onset of Symptom during adulthood 12/30/2015 None hypertension Severity mild 12/30/2015 None hypertension Alleviating Factors medication 12/30/2015 None hypertension Blood Pressure Values pt checking blood pressure - see scanned document 12/30/2015 None hypertension Pertinent Findings anxiety 12/30/2015 None hypertension Exacerbating Factors stress 12/30/2015 None anxiety Quality acute 12/30/2015 None anxiety Quality agitation 12/30/2015 None anxiety Quality worsening 12/30/2015 None anxiety Onset and Resolution ongoing 12/30/2015 None hypertension Quality chronic 11/03/2015 None hypertension Onset and Resolution ongoing 11/03/2015 None hypertension Onset of Symptom during adulthood 11/03/2015 None hypertension Severity mild 11/03/2015 None hypertension Alleviating Factors medication 11/03/2015 None hypertension Pertinent Findings Denies dizziness 11/03/2015 None hypertension Pertinent Findings Denies dyspnea 11/03/2015 None hypothyroid Onset and Resolution ongoing 11/03/2015 None hypothyroid Alleviating Factors medication 11/03/2015 None sinus congestion Quality acute 11/03/2015 None sinus congestion Location on both sides 11/03/2015 None sinus congestion Triggers allergens 11/03/2015 None hypertension Quality chronic 09/02/2015 None hypertension Onset and Resolution ongoing 09/02/2015 None hypertension Onset of Symptom during adulthood 09/02/2015 None hypertension Severity mild 09/02/2015 None hypertension Alleviating Factors medication 09/02/2015 None hypertension Pertinent Findings Denies dizziness 09/02/2015 None hypertension Pertinent Findings Denies dyspnea 09/02/2015 None hypothyroid Onset and Resolution ongoing 09/02/2015 None hypothyroid Alleviating Factors medication 09/02/2015 None nasal allergies Location in both nares 08/04/2015 None nasal allergies Onset and Resolution ongoing 08/04/2015 None nasal allergies Onset of Symptom _ years ago 08/04/2015 None hypertension Onset and Resolution ongoing 08/04/2015 None hypertension Alleviating Factors medication 08/04/2015 None hypertension Pertinent Findings Denies dizziness 08/04/2015 None hypertension Pertinent Findings Denies dyspnea 08/04/2015 None hypertension Quality chronic 08/04/2015 None hypertension Onset of Symptom during adulthood 08/04/2015 None hypertension Severity mild 08/04/2015 None joint complaint Location on both ankles 05/05/2015 None joint complaint Location on both knees 05/05/2015 None joint complaint Onset of Symptom 2.5 weeks ago 05/05/2015 None joint complaint Pertinent Findings Denies fever 05/05/2015 None arthralgia(s) Location diffusely 05/05/2015 None arthralgia(s) Onset and Resolution ongoing 05/05/2015 None arthralgia(s) Pertinent Findings pain with motion 05/05/2015 None arthralgia(s) Pertinent Findings stiffness 05/05/2015 None arthralgia(s) Frequency of Episodes increasing 05/05/2015 None flare up of rash Location-Trunk on the buttocks 04/15/2015 None flare up of rash Color red 04/15/2015 None flare up of rash Onset and Resolution ongoing 04/15/2015 None flare up of rash Pertinent Findings Denies itching 04/15/2015 None flare up of rash Pertinent Findings Denies pain 04/15/2015 None breast complaint Location in the left lower outer quadrant 04/15/2015 None breast complaint Onset of Symptom _ days ago 04/15/2015 unsure breast complaint Pertinent Findings breast pain 04/15/2015 - Pt's daughter states that her mom reported that a staff member at the assisted living told her that she probably had breast cancer becuase of the pain. hypertension Quality chronic 02/03/2015 None hypertension Quality stable 02/03/2015 None hypertension Onset and Resolution ongoing 02/03/2015 None hypertension Blood Pressure Values not checking blood pressure at home 02/03/2015 None hypertension Blood Pressure Values patient checking blood pressure at home - did not bring in readings 02/03/2015 None hypertension Alleviating Factors medication 02/03/2015 None hypertension Exacerbating Factors stress 02/03/2015 None hypertension Pertinent Findings Denies anxiety 02/03/2015 None hypertension Pertinent Findings Denies decreased energy 02/03/2015 None hypothyroid Quality chronic 02/03/2015 None memory loss Onset and Resolution ongoing 02/03/2015 None sores in the mouth Frequency of Episodes daily 02/03/2015 None sores in the mouth Frequency of Episodes monthly 02/03/2015 1 sores in the mouth Onset and Resolution sudden in onset 02/03/2015 None sores in the mouth Quality crusting 02/03/2015 None sores in the mouth Quality painful 02/03/2015 None sores in the mouth Pertinent Findings pain 02/03/2015 None nasal pain Location on both sides 02/03/2015 None nasal pain Quality dull 02/03/2015 None nasal pain Quality constant 02/03/2015 None nasal pain Onset and Resolution ongoing 02/03/2015 None nasal pain Frequency of Episodes daily 02/03/2015 None nasal allergies Onset and Resolution ongoing 12/02/2014 None nasal allergies Pertinent Findings Denies fever 12/02/2014 None hypertension Quality chronic 12/02/2014 None hypertension Quality stable 12/02/2014 None hypertension Onset and Resolution ongoing 12/02/2014 None hypertension Blood Pressure Values not checking blood pressure at home 12/02/2014 None hypertension Blood Pressure Values patient checking blood pressure at home - did not bring in readings 12/02/2014 None hypertension Alleviating Factors medication 12/02/2014 None hypertension Exacerbating Factors stress 12/02/2014 None hypertension Pertinent Findings Denies anxiety 12/02/2014 None hypertension Pertinent Findings Denies decreased energy 12/02/2014 None hypothyroid Quality chronic 12/02/2014 None memory loss Onset and Resolution ongoing 12/02/2014 has almost finished the samples of namenda. pt states she thinks it has helped constipation Quality intermittent 10/14/2014 None constipation Onset and Resolution ongoing 10/14/2014 None constipation Pertinent Findings Denies adequate oral intake 10/14/2014 None constipation Pertinent Findings Denies decreased energy level 10/14/2014 None constipation Pertinent Findings Denies fever 10/14/2014 None constipation Severity mild 10/14/2014 None constipation Triggers no known associated factors 10/14/2014 None foot pain Location on the left 07/17/2014 None foot pain Quality constant 07/17/2014 None foot pain Onset of Symptom _ months ago 07/17/2014 FX LAST [employer] foot pain Pertinent Findings pain with movement 07/17/2014 None neck pain Quality intermittent 07/17/2014 None neck pain Location on the right 07/17/2014 None flare up of rash Quality chronic 07/17/2014 None flare up of rash Triggers topical applications 07/17/2014 nystatin- triamcin flare up of rash Pertinent Findings Denies dizziness 07/17/2014 None flare up of rash Pertinent Findings Denies fever 07/17/2014 None flare up of rash Pertinent Findings Denies itching 07/17/2014 None flare up of rash Pertinent Findings Denies pain 07/17/2014 None neck pain Onset of Symptom _ months ago 07/17/2014 None sinus congestion Onset and Resolution ongoing 06/05/2014 None sinus congestion Severity moderate 06/05/2014 None sinus congestion Significant Medical Conditions allergic rhinitis 06/05/2014 None sinus congestion Triggers allergens 06/05/2014 None sinus congestion Pertinent Findings cough 06/05/2014 says she has a lot running down in her throat/mouth sinus congestion Pertinent Findings Denies fever 06/05/2014 None sinus congestion Location on both sides 06/05/2014 None sinus congestion Quality acute 06/05/2014 None cough Location in the throat 06/05/2014 None cough Onset of Symptom 1 weeks ago 06/05/2014 None cough Pertinent Findings Denies chest discomfort 06/05/2014 None cough Pertinent Findings Denies chills 06/05/2014 None cough Pertinent Findings Denies dyspnea 06/05/2014 None flare up of rash Quality chronic 06/05/2014 None flare up of rash Triggers topical applications 06/05/2014 nystatin- triamcin flare up of rash Pertinent Findings Denies fever 06/05/2014 None flare up of rash Pertinent Findings Denies dizziness 06/05/2014 None flare up of rash Pertinent Findings Denies itching 06/05/2014 None flare up of rash Pertinent Findings Denies pain 06/05/2014 None sinus congestion Onset of Symptom 1+ weeks ago 05/08/2014 None sinus congestion Pertinent Findings cough 05/08/2014 None sinus congestion Pertinent Findings Denies fever 05/08/2014 None sinus congestion Pertinent Findings Denies decreased energy level 05/08/2014 states nose is burning inside. cough Location in the throat 05/08/2014 None cough Quality productive 05/08/2014 yellow cough Onset of Symptom 1 weeks ago 05/08/2014 None cough Pertinent Findings Denies chills 05/08/2014 None cough Pertinent Findings Denies chest discomfort 05/08/2014 None cough Pertinent Findings Denies dyspnea 05/08/2014 None flare up of rash Location-Trunk on the buttocks 05/08/2014 None flare up of rash Quality chronic 05/08/2014 None flare up of rash Prior Treatments previously treated 05/08/2014 None flare up of rash Triggers topical applications 05/08/2014 nystatin- triamcin sinus congestion Onset and Resolution ongoing 05/08/2014 None sinus congestion Frequency of Episodes increasing 05/08/2014 None sinus congestion Severity moderate 05/08/2014 None sinus congestion Significant Medical Conditions allergic rhinitis 05/08/2014 None sinus congestion Triggers allergens 05/08/2014 None sinus congestion Location on both sides 05/08/2014 None sinus congestion Quality acute 05/08/2014 None arm pain Location right arm 04/17/2014 None arm pain Location right upper arm 04/17/2014 None arm pain Quality constant 04/17/2014 None arm pain Quality aching 04/17/2014 None arm pain Onset of Symptom 2 weeks ago 04/17/2014 None arm pain Mechanism of injury fall from height 04/17/2014 None arm pain Pertinent Findings female 04/17/2014 None arm pain Pertinent Findings right hand dominant 04/17/2014 None arm pain Pertinent Findings pain with movement 04/17/2014 None hypertension Quality chronic 02/27/2014 None hypertension Quality stable 02/27/2014 None hypertension Onset and Resolution ongoing 02/27/2014 None hypertension Blood Pressure Values patient checking blood pressure at home - did not bring in readings 02/27/2014 home health takes bp at home hypertension Alleviating Factors medication 02/27/2014 None hypertension Exacerbating Factors stress 02/27/2014 None hypertension Pertinent Findings Denies anxiety 02/27/2014 None hypertension Pertinent Findings Denies decreased energy 02/27/2014 None memory loss Onset and Resolution ongoing 02/27/2014 None hypertension Pertinent Findings Denies dizziness 02/27/2014 None hypertension Pertinent Findings Denies dyspnea 02/27/2014 None skin lesion Quality enlarging 02/27/2014 nodule on right hand- concerning pt due to size no pain to area skin lesion Quality raised 02/27/2014 None skin lesion Location finger and/or fingers of right hand 02/27/2014 None skin lesion Onset of Symptom 2 months ago 02/27/2014 None skin lesion Pertinent Findings Denies ecchymotic 02/27/2014 None hypertension Severity not consistently severe symptoms, the symptoms fluctuate from no symptoms to anxiety and headaches 02/27/2014 None memory loss Limitation on Activities does not limit activities 02/27/2014 None memory loss Frequency of Episodes unchanged 02/27/2014 None memory loss Triggers no known associated factors 02/27/2014 None memory loss Quality chronic 02/27/2014 None hypertension Quality chronic 12/31/2013 None hypertension Onset and Resolution ongoing 12/31/2013 None hypertension Blood Pressure Values patient checking blood pressure at home - did not bring in readings 12/31/2013 None hypothyroid Quality chronic 12/31/2013 None memory loss Onset and Resolution ongoing 12/31/2013 has almost finished the samples of namenda. pt states she thinks it has helped hypertension Quality stable 12/31/2013 None hypertension Blood Pressure Values not checking blood pressure at home 12/31/2013 None hypertension Alleviating Factors medication 12/31/2013 None hypertension Exacerbating Factors stress 12/31/2013 None hypertension Pertinent Findings Denies anxiety 12/31/2013 None hypertension Pertinent Findings Denies decreased energy 12/31/2013 None hypertension Blood Pressure Values patient checking blood pressure at home - did not bring in readings 12/09/2013 None hypertension Pertinent Findings Denies dizziness 12/09/2013 None hypertension Pertinent Findings Denies dyspnea 12/09/2013 None hypertension Pertinent Findings Denies edema 12/09/2013 None foot pain Location on the left 12/09/2013 None foot pain Quality dull pain 12/09/2013 None foot pain Pertinent Findings pain with movement 12/09/2013 None foot pain Pertinent Findings swelling 12/09/2013 None skin lesion Quality enlarging 12/09/2013 None skin lesion Onset of Symptom 2 weeks ago 12/09/2013 None skin lesion Location finger and/or fingers of right hand 12/09/2013 None hypertension Quality chronic 12/09/2013 None hypertension Onset and Resolution ongoing 12/09/2013 None hypertension Onset of Symptom during adulthood 12/09/2013 None hypertension Triggers no known associated factors 12/09/2013 None neck pain Location in the cervical spine 09/09/2013 None neck pain Onset and Resolution gradual in onset 09/09/2013 None neck pain Quality acute 09/09/2013 None neck pain Quality intermittent 09/09/2013 None neck pain Quality discomfort 09/09/2013 None hypertension Quality chronic 09/09/2013 None hypertension Onset and Resolution ongoing 09/09/2013 None hypertension Blood Pressure Values patient checking blood pressure at home - did not bring in readings 09/09/2013 None rash Location-Major on the back 09/09/2013 None rash Onset of Symptom 1 months ago 09/09/2013 None rash Pertinent Findings itching 09/09/2013 None hypertension Quality stable 09/09/2013 None hypertension Blood Pressure Values not checking blood pressure at home 09/09/2013 None hypertension Alleviating Factors medication 09/09/2013 None hypertension Exacerbating Factors stress 09/09/2013 None hypertension Pertinent Findings Denies anxiety 09/09/2013 None hypertension Pertinent Findings Denies decreased energy 09/09/2013 None sinus congestion Quality acute 06/17/2013 None sinus congestion Onset and Resolution ongoing 06/17/2013 None sinus congestion Location on both sides 06/17/2013 None hypertension Quality chronic 06/17/2013 None hypertension Onset and Resolution ongoing 06/17/2013 None hypertension Quality stable 06/17/2013 None hypertension Blood Pressure Values not checking blood pressure at home 06/17/2013 None hypertension Pertinent Findings Denies decreased energy 06/17/2013 None hypertension Pertinent Findings Denies anxiety 06/17/2013 None hypertension Exacerbating Factors stress 06/17/2013 None hypertension Alleviating Factors medication 06/17/2013 None sinus congestion Severity moderate 06/17/2013 None sinus congestion Triggers no known associated factors 06/17/2013 None cough Location in the lung 05/28/2013 None cough Quality acute None cough Quality productive 05/28/2013 yellow phelgm cough Onset and Resolution sudden in onset 05/28/2013 None cough Pertinent Findings ill contacts 05/28/2013 None cough Pertinent Findings fever 05/28/2013 None cough Limitation on Activities does not limit activities 05/28/2013 None cough Frequency of Episodes increasing 05/28/2013 None cough Triggers ill contacts 05/28/2013 None cough Pertinent Findings Denies chest discomfort 05/28/2013 None cough Pertinent Findings Denies apnea 05/28/2013 None cough Pertinent Findings Denies dyspnea 05/28/2013 None cough Pertinent Findings facial pain 05/28/2013 None cough Pertinent Findings Denies lethargy 05/28/2013 None cough Pertinent Findings Denies hoarseness 05/28/2013 None cough Pertinent Findings Denies sputum production 05/28/2013 None bone fracture Location on the left foot 03/12/2013 None nasal allergies Location in both nares 03/12/2013 None nasal allergies Onset and Resolution gradual in onset 03/12/2013 None nasal allergies Severity moderate 03/12/2013 None nasal allergies Exacerbating Factors allergen exposure 03/12/2013 None nasal allergies Pertinent Findings Denies cough 03/12/2013 None nasal allergies Pertinent Findings Denies facial pain 03/12/2013 None nasal allergies Pertinent Findings Denies fever 03/12/2013 None nasal allergies Pertinent Findings nasal itching 03/12/2013 None nasal allergies Pertinent Findings nasal obstruction 03/12/2013 None bone fracture Onset and Resolution ongoing 03/12/2013 None bone fracture Pertinent Findings Denies chills 03/12/2013 None bone fracture Pertinent Findings pain 03/12/2013 None bone fracture Pertinent Findings point tenderness 03/12/2013 None bone fracture Pertinent Findings Denies stiffness 03/12/2013 None bone fracture Location on the left foot 01/22/2013 None bone fracture Onset and Resolution ongoing 01/22/2013 dgt states mother hasn' t worn the boot or doesn't wear it tight enough hypertension Onset and Resolution ongoing 11/14/2012 None hypertension Pertinent Findings Denies dizziness 11/14/2012 None hypertension Pertinent Findings Denies dyspnea 11/14/2012 None hypertension Pertinent Findings Denies lethargy 11/14/2012 None hypertension Pertinent Findings Denies orthostatic hypotension 11/14/2012 None hypertension Pertinent Findings Denies palpitations 11/14/2012 None hypertension Pertinent Findings Denies tachycardia 11/14/2012 None hypertension Alleviating Factors medication 11/14/2012 None hypertension Exacerbating Factors stress 11/14/2012 None hypertension Blood Pressure Values patient checking blood pressure at home - did not bring in readings 11/14/2012 home health report shows blood pressure in the 120-140/70 range. hypertension Severity mild 11/14/2012 None hypertension Quality chronic 11/14/2012 None hypertension Triggers stress 11/14/2012 None hypertension Pertinent Findings Denies decreased energy 11/14/2012 None hypertension Pertinent Findings edema 11/14/2012 None insomnia Quality improving 11/14/2012 None insomnia Onset and Resolution resolved 11/14/2012 states just recently hypertension Quality chronic 09/12/2012 None hypertension Onset and Resolution ongoing 09/12/2012 None hypertension Blood Pressure Values patient checking blood pressure at home - did not bring in readings 09/12/2012 nurses take BP hypertension Pertinent Findings Denies dizziness 09/12/2012 None hypertension Pertinent Findings Denies decreased energy 09/12/2012 None hypertension Pertinent Findings edema 09/12/2012 None hypertension Pertinent Findings Denies palpitations 09/12/2012 None hypertension Pertinent Findings Denies orthostatic hypotension 09/12/2012 None hypertension Pertinent Findings Denies tachycardia 09/12/2012 None insomnia Quality improving 09/12/2012 None insomnia Onset and Resolution resolved 09/12/2012 states just recently hypertension Severity mild 09/12/2012 Pt states that her blood pressure varies at home, she has blood pressures that VARY rash Location-Extremities on the right leg 05/31/2012 None rash Color red 2011 None rash Pertinent Findings Denies itching 05/31/2012 None rash Pertinent Findings Denies tenderness 05/31/2012 None hypertension Quality chronic 05/31/2012 None hypertension Onset and Resolution ongoing 05/31/2012 home health checking it for her rash Location-Major on the legs 05/31/2012 None rash Limitation on Activities does not limit activities 05/31/2012 None rash Severity mild None rash Prior Treatments previously untreated 05/31/2012 None rash Triggers no known triggers 05/31/2012 None rash Alleviating Factors no alleviating factors 05/31/2012 None hypertension Quality stable 05/31/2012 None hypertension Onset of Symptom during adulthood 05/31/2012 None hypertension Blood Pressure Values not checking blood pressure at home 05/31/2012 None hypertension Severity mild 05/31/2012 None hypertension Triggers stress 05/31/2012 None hypertension Alleviating Factors medication 05/31/2012 None hypertension Exacerbating Factors stress 05/31/2012 None hypertension Pertinent Findings Denies decreased energy 05/31/2012 None hypertension Pertinent Findings Denies dizziness 05/31/2012 None hypertension Pertinent Findings Denies dyspnea 05/31/2012 None hypertension Pertinent Findings edema 05/31/2012 None sinus congestion Location frontal sinuses 05/01/2012 None sinus congestion Location maxillary sinuses 05/01/2012 None sinus congestion Quality acute 05/01/2012 None sinus congestion Onset and Resolution ongoing 05/01/2012 None sinus congestion Onset of Symptom 1-2 weeks ago 05/01/2012 None sinus congestion Severity moderate 05/01/2012 None sinus congestion Significant Medical Conditions allergic rhinitis 05/01/2012 None sinus congestion Triggers no known associated factors 05/01/2012 None sinus congestion Pertinent Findings cough 05/01/2012 None sinus congestion Pertinent Findings decreased energy level 05/01/2012 None sinus congestion Pertinent Findings Denies hoarseness 05/01/2012 None sore throat Location diffusely 05/01/2012 None sore throat Quality scratchy 05/01/2012 None sore throat Quality worsening 05/01/2012 None sore throat Limitation on Activities limits oral intake 05/01/2012 None sore throat Frequency of Episodes increasing 05/01/2012 None sore throat Triggers allergens 05/01/2012 None sore throat Pertinent Findings cough 05/01/2012 None sore throat Pertinent Findings Denies ill contacts 05/01/2012 None hypertension Quality stable 03/22/2012 None hypertension Onset and Resolution ongoing 03/22/2012 None hypothyroid Quality stable 03/22/2012 None anxiety Onset and Resolution ongoing 03/22/2012 None hypertension Quality chronic 02/20/2012 None hypertension Onset and Resolution ongoing 02/20/2012 None hypertension Onset of Symptom during adulthood 02/20/2012 None hypertension Blood Pressure Values not checking blood pressure at home 02/20/2012 None hypertension Severity mild 02/20/2012 None hypertension Triggers stress 02/20/2012 None hypertension Alleviating Factors medication 02/20/2012 None hypertension Exacerbating Factors stress 02/20/2012 None hypertension Pertinent Findings Denies decreased energy 02/20/2012 None hypertension Pertinent Findings Denies dizziness 02/20/2012 None hypertension Pertinent Findings Denies dyspnea 02/20/2012 None hypertension Pertinent Findings edema 02/20/2012 None depression Quality chronic 02/20/2012 None depression Onset and Resolution ongoing 02/20/2012 None depression Onset of Symptom during adulthood 02/20/2012 None depression Limitation on Activities moderately limits activities 02/20/2012 None depression Frequency of Episodes unchanged 02/20/2012 None depression Significant Medical Conditions anxiety disorder 02/20/2012 None depression Triggers no known associated factors 02/20/2012 None depression Pertinent Findings anxiety 02/20/2012 None depression Pertinent Findings depressed mood 02/20/2012 None depression Pertinent Findings difficulty concentrating 02/20/2012 None Advance Directives Advance Directives Present Encounters Encounter Performer Location Codes Date ) 23094 EST. PATIENT, LEVEL III Diagnosis: Essential (primary) hypertension[ICD10: I10] Diagnosis: Generalized anxiety disorder[ICD10: F41.1] Martha Hou MD, [facility] CPT-4: 68100 03/29/2018 ([id number] 72415 EST. PATIENT, LEVEL IV Diagnosis: Atrophy of thyroid (acquired)[ICD10: E03.4] Diagnosis: Essential (primary) hypertension[ICD10: I10] Diagnosis: Generalized anxiety disorder[ICD10: F41.1] Martha Hou MD, [facility] CPT-4: 53958 03/01/2018 [id number]) 90017 EST. PATIENT, LEVEL IV Diagnosis: Atrophy of thyroid (acquired)[ICD10: E03.4] Diagnosis: Essential (primary) hypertension[ICD10: I10] Diagnosis: Generalized anxiety disorder[ICD10: F41.1] Martha Hou MD, [facility] CPT-4: 45295 02/13/2018 [id number]) 09566 EST. PATIENT, LEVEL IV Diagnosis: Atrophy of thyroid (acquired)[ICD10: E03.4] Diagnosis: Essential (primary) hypertension[ICD10: I10] Diagnosis: Generalized anxiety disorder[ICD10: F41.1] Martha Hou MD, [facility] CPT-4: 43425 01/15/2018 ([id number]) 96403 EST. PATIENT, LEVEL IV Diagnosis: Atrophy of thyroid (acquired)[ICD10: E03.4] Diagnosis: Mixed hyperlipidemia[ICD10: E78.2] Diagnosis: Essential (primary) hypertension[ICD10: I10] Martha Hou MD [facility] CPT-4: 33029 10/03/2017 22645 EST. PATIENT, LEVEL III Diagnosis: Other dysphagia[ICD10: R13.19] Britta Hou MD [facility] CPT-4 : 31807 09/19/2017 ([id number]) 70135 EST. PATIENT, LEVEL IV Diagnosis: Essential (primary) hypertension[ICD10: I10] Diagnosis: Atrophy of thyroid (acquired)[ICD10: E03.4] Diagnosis: Glossodynia[ICD10: K14.6] Martha Hou MD [facility] CPT-4: 87736 07/06/2017 ([id number]) 85789 EST. PATIENT, LEVEL III Diagnosis: Diseases of lips[ICD10: K13.0] Diagnosis: Disturbances of salivary secretion[ICD10: K11.7] Martha Hou MD, [facility] CPT-4: 89610 04/04/2017 ([id number]) 90839 EST. PATIENT, LEVEL IV Diagnosis: Atrophy of thyroid (acquired)[ICD10: E03.4] Diagnosis: Essential (primary) hypertension[ICD10: I10] Diagnosis: Diseases of lips[ICD10: K13.0] Martha Hou MD [facility] CPT- 4: 10912 02/28/2017 ([id number]) 65672 EST. PATIENT, LEVEL III Diagnosis: Essential (primary) hypertension[ICD10: I10] Martha Hou MD, [facility] CPT-4: 77084 11/29/2016 ([id number]) 33576 EST. 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 PATIENT, LEVEL IV Diagnosis: Atrophy of thyroid (acquired)[ICD10: E03.4] Diagnosis: Generalized anxiety disorder[ICD10: F41.1] Diagnosis: Essential (primary) hypertension[ICD10: I10] Martha Hou MD, [facility] CPT-4: 24606 08/30/2016 ([id number]) 59047 EST. PATIENT, LEVEL IV Diagnosis: Atrophy of thyroid (acquired)[ICD10: E03.4] Diagnosis: Mixed hyperlipidemia[ICD10: E78.2] Diagnosis: Generalized anxiety disorder[ICD10: F41.1] Diagnosis: Essential (primary) hypertension[ICD10: I10] Martha Hou MD, [facility] CPT-4: 47177 05/03/2016 ([id number]) 54360 EST. PATIENT, LEVEL IV Diagnosis: Essential (primary) hypertension[ICD10: I10] Diagnosis: Hypothyroidism, unspecified[ICD10: E03.9] Diagnosis: Generalized anxiety disorder[ICD10: F41.1] Martha Hou MD, [facility] CPT-4: 75313 02/02/2016 ([id number]) 44000 EST. PATIENT, LEVEL IV Diagnosis: Hypothyroidism, unspecified[ICD10: E03.9] Diagnosis: Generalized anxiety disorder[ICD10: F41.1] Diagnosis: Essential (primary) hypertension[ICD10: I10] Martha Hou MD, [facility] CPT-4: 68097 12/30/2015 ([id number]) 77853 EST. PATIENT, LEVEL IV Diagnosis: Essential (primary) hypertension[ICD10: I10] Diagnosis: Mixed hyperlipidemia[ICD10: E78.2] Diagnosis: Allergic rhinitis due to pollen[ICD10: J30.1] Diagnosis: Hypothyroidism, unspecified[ICD10: E03.9] Martha Hou MD, [facility] CPT-4: 55068 11/03/2015 ([id number]) 81425 EST. PATIENT, LEVEL III Diagnosis: Essential (primary) hypertension[ICD10: I10] Diagnosis: Polyosteoarthritis, unspecified[ICD10: M15.9] Martha Hou MD, [facility] CPT-4: 85413 09/02/2015 ([id number]) 85270 EST. PATIENT, LEVEL IV Diagnosis: Essential (primary) hypertension[ICD10: I10] Diagnosis: Hypothyroidism, unspecified[ICD10: E03.9] Diagnosis: Cough[ICD10: R05] Martha Hou MD, [facility] CPT-4: 84580 08/04/2015 ([id number]) 67069 EST. PATIENT, LEVEL IV Diagnosis: Polyosteoarthritis, unspecified[ICD10: M15.9] Diagnosis: Essential (primary) hypertension[ICD10: I10] Diagnosis: Anxiety disorder, unspecified[ICD10: F41.9] Martha Hou MD [facility] CPT-4: 55724 05/05/2015 ([id number]) 06535 EST. PATIENT, LEVEL IV Diagnosis: Essential (primary) hypertension[ICD10: I10] Diagnosis: Generalized anxiety disorder[ICD10: F41.1] Diagnosis: Mastodynia[ICD10: N64.4] Martha Hou MD [facility] CPT-4: 47856 04/15/2015 ([id number]) 63516 EST. PATIENT, LEVEL IV Diagnosis: ESSENTIAL HYPERTENSION[ICD9: 401.9] Diagnosis: HYPOTHYROIDISM[ICD9: 244.9] Diagnosis: Alzheimer's dementia[ICD9: 331.0] Martha Hou MD [facility] CPT-4: 39700 02/03/2015 ([id number]) 99810 EST. PATIENT, LEVEL IV Diagnosis: ESSENTIAL HYPERTENSION[ICD9: 401.9] Diagnosis: HYPOTHYROIDISM[ICD9: 244.9] Diagnosis: GENERALIZED ANXIETY DISEASE[ICD9: 300.02] Diagnosis: ALLERGIC RHINITIS[ICD9: 477.9] Diagnosis: HYPERLIPIDEMIA[ICD9: 272.4] Martha Hou MD [facility] CPT- 4: 00382 12/02/2014 ([id number]) 04138 EST. PATIENT, LEVEL IV Diagnosis: ESSENTIAL HYPERTENSION[ICD9: 401.9] Diagnosis: HYPOTHYROIDISM[ICD9: 244.9] Diagnosis: GENERALIZED ANXIETY DISEASE[ICD9: 300.02] Diagnosis: GENERAL OSTEOARTHROSIS[ICD9: 715.00] Diagnosis: Weakness[ICD9: 780.79] Diagnosis: Loose stools[ICD9: 787.7] Martha Hou MD [facility] CPT-4: 01437 10/14/2014 ([id number]) 13970 EST. PATIENT, LEVEL IV Diagnosis: Generalized osteoarthritis[ICD9: 715.00] Diagnosis: Foot pain, left[ICD9: 729.5] Diagnosis: Weakness[ICD9: 780.79] Diagnosis: Shoulder pain[ICD9: 719.41] Martha Hou MD [facility] CPT- 4: 25438 07/17/2014 ([id number]) 91510 EST. PATIENT, LEVEL IV Diagnosis: ESSENTIAL HYPERTENSION[ICD9: 401.9] Diagnosis: HYPOTHYROIDISM[ICD9: 244.9] Diagnosis: ALLERGIC RHINITIS[ICD9: 477.9] Diagnosis: ACUTE BRONCHITIS[ICD9: 466.0] Martha Hou MD, [facility] CPT- 4: 04658 06/05/2014 ([id number]) 63744 EST. PATIENT, LEVEL III Diagnosis: ACUTE SINUSITIS[ICD9: 461.9] Diagnosis: ALLERGIC RHINITIS[ICD9: 477.9] Diagnosis: Rash[ICD9: 782.1] Martha Hou MD [facility] CPT-4: 66017 05/08/2014 ([id number]) 62179 EST. PATIENT, LEVEL III Diagnosis: Arm pain[ICD9: 729.5] Diagnosis: Weakness[ICD9: 780.79] Diagnosis: Open wound of arm[ICD9: 884.0] Martha Hou MD, [facility] CPT- 4: 26217 04/17/2014 ([id number]) 58055 EST. PATIENT, LEVEL IV Diagnosis: Weight loss[ICD9: 783.21] Diagnosis: ESSENTIAL HYPERTENSION[ICD9: 401.9] Diagnosis: Alzheimer's dementia[ICD9: 331.0] Diagnosis: ALLERGIC RHINITIS[ICD9: 477.9] Karen Hou MD, [facility] CPT-4: 48565 02/27/2014 ([id number]) 45182 EST. PATIENT, LEVEL IV Diagnosis: HYPOTHYROIDISM[ICD9: 244.9] Diagnosis: Weight loss[ICD9: 783.21] Diagnosis: ESSENTIAL HYPERTENSION[ICD9: 401.9] Diagnosis: Alzheimer's dementia[ICD9: 331.0] Martha Hou MD [facility] CPT-4: 75811 12/31/2013 ([id number]) 27640 EST. PATIENT, LEVEL IV Diagnosis: ESSENTIAL HYPERTENSION[SNOMED: 90499742] Diagnosis: GENERAL OSTEOARTHROSIS[ICD9: 715.00] Diagnosis: Foot pain, left[ICD9: 729.5] Diagnosis: Gait instability[ICD9: 781.2] Martha Hou MD, [facility] CPT- 4: 38614 12/09/2013 ([id number]) 50014 EST. PATIENT, LEVEL IV Diagnosis: ESSENTIAL HYPERTENSION[SNOMED: 20711188] Diagnosis: ALLERGIC RHINITIS[ICD9: 477.9] Diagnosis: Oral dryness[ICD9: 527.7] Diagnosis: Nose irritation[ICD9: 478.19] Diagnosis: Rash[ICD9: 782.1] Martha Hou MD, [facility] CPT-4: 98001 06/17/2013 ([id number]) 62376 EST. PATIENT, LEVEL III Diagnosis: ACUTE SINUSITIS[ICD9: 461.9] Diagnosis: ALLERGIC RHINITIS[ICD9: 477.9] Karen Hou MD, [facility] CPT-4: 89810 05/28/2013 ([id number]) 49884 EST. PATIENT, LEVEL IV Diagnosis: ESSENTIAL HYPERTENSION[SNOMED: 60474043] Diagnosis: AFTRCE TRAUM FX BONE NEC[ICD9: V54.19] Diagnosis: HYPOTHYROIDISM[ICD9: 244.9] Martha Hou MD, [facility] CPT- 4: 15149 03/12/2013 ([id number]) 21685 EST. PATIENT, LEVEL IV Diagnosis: Disp fx of fifth metatarsal bone of left foot with delayed healing[ ICD9: V54.19] Diagnosis: ESSENTIAL HYPERTENSION[SNOMED: 01339082] Diagnosis: Osteoporosis[ICD9: 733.00] Martha Hou MD, [facility] CPT- 4: 86241 01/22/2013 ([id number]) 75991 EST. PATIENT, LEVEL IV Diagnosis: ESSENTIAL HYPERTENSION[SNOMED: 22778175] Diagnosis: GENERALIZED ANXIETY DISEASE[ICD9: 300.02] Diagnosis: Allergic rhinitis[ICD9: 477.9] Diagnosis: GENERAL OSTEOARTHROSIS[ICD9: 715.00] Martha Hou MD, [facility] CPT-4: 30802 11/14/2012 ([id number]) 20054 EST. PATIENT, LEVEL IV Diagnosis: ESSENTIAL HYPERTENSION[SNOMED: 10425633] Diagnosis: GENERALIZED ANXIETY DISEASE[ICD9: 300.02] Diagnosis: Allergic rhinitis[ICD9: 477.9] Diagnosis: GENERAL OSTEOARTHROSIS[ICD9: 715.00] Martha Hou MD, [facility] CPT-4: 69119 09/12/2012 ([id number]) 54695 EST. PATIENT, LEVEL IV Diagnosis: Oral candidiasis[ICD9: 112.0] Diagnosis: ESSENTIAL HYPERTENSION[SNOMED: 78840418] Diagnosis: INSOMNIA NOS[ICD9: 780.52] Martha Hou MD, [facility] CPT- 4: 53641 05/31/2012 ([id number]) 87284 EST. PATIENT, LEVEL III Diagnosis: Maxillary sinusitis, acute[ICD9: 461.0] Diagnosis: Cough[ICD9: 786.2] Martha Hou MD [facility] CPT-4: 05283 05/01/2012 ([id number]) 22320 EST. PATIENT, LEVEL IV Diagnosis: GENERAL OSTEOARTHROSIS[ICD9: 715.00] Diagnosis: GENERALIZED ANXIETY DISEASE[ICD9: 300.02] Diagnosis: Insomnia[ICD9: 780.52] Martha Hou MD, [facility] CPT-4: 08573 03/22/2012 OFFICE/OUTPATIENT VISIT NEW Diagnosis: ESSENTIAL HYPERTENSION[SNOMED: 10742528] Diagnosis: DEPRESSIVE DISORDER NEC[ICD9: 311] Diagnosis: GENERALIZED ANXIETY DISEASE[ICD9: 300.02] Diagnosis: Mouth dryness[ICD9: 527.7] Diagnosis: Generalized osteoarthritis[ICD9: 715.00] Diagnosis: HYPOTHYROIDISM[ICD9: 244.9] Martha Hou MD, [facility] CPT- 4: 32082 02/20/2012 Plan of Care Planned Activity Notes Codes Status Date Patient Education: Patient Medication Summary Completed 05/01/2018 Care Plan: Urine Culture Pending 05/01/2018 Patient Education: Patient Medication Summary Completed 04/11/2018 Visit Plan: Hypertension - well controlled - continue with current medications, continue with no added salt diet. Pt has been encouraged to exercise daily. The pt has been advised to call the office if there are any acute concerns about change in blood pressure readings at home. Anxiety with mood disorder - continue with depakote - continue with lexapro. MSG left for facility to let me know if they feel like she is doing well enough to get pt on lower dose of ativan. 03/29/2018 Appointment: Martha Hou WPtel: [id number] (15 min) Moderate 03/29/2018 Patient Education: Patient Medication Summary Completed 03/29/2018 Visit Plan: Dementia with behavior disorder - Pt has excessive daytime sleepiness - I have recommended the following: change depakote to 125AM and 2508pm and change lexapro to hs. Hypothyroidism - pt with chronic hypothyroidism, continue with current medication, will monitor pt to signs or symptoms of lack of adequate supplementation. Pt is to continue with current dose of medication unless directed otherwise. Check labs at regular intervals wither q 3 months or q 6 months based on previous levels of control. Hypertension - well controlled - continue with current medications, continue with no added salt diet. Pt has been encouraged to exercise daily. The pt has been advised to call the office if there are any acute concerns about change in blood pressure readings at home. 03/01/2018 Appointment: Martha Hou WPtel: [facility] (15 min) Moderate 03/01/2018 Patient Education: Patient Medication Summary Completed 03/01/2018 Appointment: Martha H[facility] WPtel[facility] (15 min) Moderate 02/26/2018 Appointment: Martha Hou WPtel: [facility] (15 min) Moderate 02/22/2018 Visit Plan: Hypothyroidism - pt with chronic hypothyroidism , continue with current medication, will monitor pt to signs or symptoms of lack of adequate supplementation. Pt is to continue with current dose of medication unless directed otherwise. Check labs at regular intervals wither q 3 months or q 6 months based on previous levels of control. Hypertension - well controlled - continue with current medications, continue with no added salt diet. Pt has been encouraged to exercise daily. The pt has been advised to call the office if there are any acute concerns about change in blood pressure readings at home. Anxiety with mood disorder - continue with depakote - start on lexapro - wean off of risperdal. Monitor symptoms as the medications change - will keep in communication with the Assisted Living facility. 02/13/2018 Appointment: Martha Hou WPtel: [phone] [id number] (15 min) Moderate 02/13/2018 Patient Education: Patient Medication Summary Completed 02/13/2018 Visit Plan: Hypothyroidism - pt with chronic hypothyroidism , continue with current medication, will monitor pt to signs or symptoms of lack of adequate supplementation. Pt is to continue with current dose of medication unless directed otherwise. Check labs at regular intervals wither q 3 months or q 6 months based on previous levels of control. Hypertension - well controlled - continue with current medications, continue with no added salt diet. Pt has been encouraged to exercise daily. The pt has been advised to call the office if there are any acute concerns about change in blood pressure readings at home. Anxiety with mood disorder - continue with depakote 01/15/2018 Appointment: Martha Hou WPtel: [id number] (15 min) Moderate 01/15/2018 Appointment: Martha Hou WPtel: [id number] (15 min) Moderate 01/15/2018 Patient Education: Patient Medication Summary Completed 01/15/2018 Visit Plan: Hypertension - well controlled - continue with current medications, continue with no added salt diet. Pt has been encouraged to exercise daily. The pt has been advised to call the office if there are any acute concerns about change in blood pressure readings at home. Hypothyroidism - pt with chronic hypothyroidism, continue with current medication, will monitor pt to signs or symptoms of lack of adequate supplementation. Pt is to continue with current dose of medication unless directed otherwise. Check labs at regular intervals wither q 3 months or q 6 months based on previous levels of control. Hyperlipidemia - pt has been counseled about appropriate diet, exercise, and need for low fat food choices. I have discussed the need for the patient to take medications as prescribed. If the patient has negative side effects from the medication, they are to CALL the office and not abruptly discontinue the medication without discussion with a practitioner in the office. We will check labs in 3-6 months for follow up on the patient's chronic medical problem and to assure normal liver response to medications. 10/03/2017 Patient Education: Patient Medication Summary Completed 10/03/2017 Visit Plan: Dysphagia - resolved - pt has had no other incidence of difficulty swallowing - no changes at this time - if symptoms return will order swallow study 09/19/2017 Appointment: Britta Romeo WPtel: [id number] (30 min) Complex 09/19/2017 Patient Education: Patient Medication Summary Completed 09/19/2017 Visit Plan: Hypertension - well controlled - continue with current medications, continue with no added salt diet. Pt has been encouraged to exercise daily. The pt has been advised to call the office if there are any acute concerns about change in blood pressure readings at home. Hypothyroidism - pt with chronic hypothyroidism, continue with current medication, will monitor pt to signs or symptoms of lack of adequate supplementation. Pt is to continue with current dose of medication unless directed otherwise. Check labs at regular intervals wither q 3 months or q 6 months based on previous levels of control. Mouth discomfort - continue with current treatment - rx for magic mouthwash. 07/06/2017 Appointment: Martha Hou WPtel: [facility] (15 min) Moderate 07/06/2017 Patient Education: Patient Medication Summary Completed 07/06/2017 Visit Plan: Lip lesion - resolved - recommended patient to use the sensodyne, call if not improving. 04/04/2017 Appointment: Martha Hou WPtel: [id number] (15 min) Moderate 04/04/2017 Patient Education: Patient Medication Summary Completed 04/04/2017 Appointment: Martha Hou WPtel: [id number] (15 min) Moderate 03/28/2017 Visit Plan: Hypertension - well controlled - continue with current medications, continue with no added salt diet. Pt has been encouraged to exercise daily. The pt has been advised to call the office if there are any acute concerns about change in blood pressure readings at home. Lip ulcer - ulcer on left lower lip about 0.2 cm Hypothyroidism - pt with chronic hypothyroidism, continue with current medication, will monitor pt to signs or symptoms of lack of adequate supplementation. Pt is to continue with current dose of medication unless directed otherwise. Check labs at regular intervals wither q 3 months or q 6 months based on previous levels of control. 02/28/2017 Appointment: Martha Hou WPtel: [phone] [id number] (15 min) Moderate 02/28/2017 Patient Education: Patient Medication Summary Completed 02/28/2017 Appointment: Martha Hou WPtel: [phone] [id number] (15 min) Moderate 12/27/2016 Visit Plan: Hypertension - well controlled - continue with current medications, continue with no added salt diet. Pt has been encouraged to exercise daily. The pt has been advised to call the office if there are any acute concerns about change in blood pressure readings at home. 11/29/2016 Appointment: [phone] (15 min) Moderate 11/29/2016 Patient Education: Patient Medication Summary Completed 11/29/2016 Visit Plan: Hypertension - well controlled - continue with current medications, continue with no added salt diet. Pt has been encouraged to exercise daily. The pt has been advised to call the office if there are any acute concerns about change in blood pressure readings at home. TIA - decrease aspirin to 81mg daily - start on plavix 75mg daily. 11/02/2016 Appointment: [phone] (15 min) Moderate 11/02/2016 Patient Education: Patient Medication Summary Completed 11/02/2016 Appointment: [phone] (15 min) Moderate 10/27/2016 Visit Plan: Hypertension - well controlled - continue with current medications, continue with no added salt diet. Pt has been encouraged to exercise daily. The pt has been advised to call the office if there are any acute concerns about change in blood pressure readings at home. Dry Mouth - start biotene - staff to spray in pt mouth three times daily Hyperlipidemia - pt has been counseled about appropriate diet, exercise, and need for low fat food choices. I have discussed the need for the patient to take medications as prescribed. If the patient has negative side effects from the medication, they are to CALL the office and not abruptly discontinue the medication without discussion with a practitioner in the office. We will check labs in 3-6 months for follow up on the patient's chronic medical problem and to assure normal liver response to medications. Hypothyroidism - pt with chronic hypothyroidism, continue with current medication, will monitor pt to signs or symptoms of lack of adequate supplementation. Pt is to continue with current dose of medication unless directed otherwise. Check labs at regular intervals wither q 3 months or q 6 months based on previous levels of control. 08/30/2016 Appointment: Martha [facility]el[phone] (15 min) Moderate 08/30/2016 Patient Education: Patient Medication Summary Completed 08/30/2016 Patient Education: Hypertension Completed 08/30/2016 Visit Plan: Hypertension - well controlled - continue with current medications, continue with no added salt diet. Pt has been encouraged to exercise daily. The pt has been advised to call the office if there are any acute concerns about change in blood pressure readings at home. Hypothyroidism - pt with chronic hypothyroidism, continue with current medication, will monitor pt to signs or symptoms of lack of adequate supplementation. Pt is to continue with current dose of medication unless directed otherwise. Check labs at regular intervals wither q 3 months or q 6 months based on previous levels of control. Hyperlipidemia - pt has been counseled about appropriate diet, exercise, and need for low fat food choices. I have discussed the need for the patient to take medications as prescribed. If the patient has negative side effects from the medication, they are to CALL the office and not abruptly discontinue the medication without discussion with a practitioner in the office. We will check labs in 3-6 months for follow up on the patient's chronic medical problem and to assure normal liver response to medications. Chronic allergies - continue with nasal spray 05/03/2016 Appointment: [phone] (15 min) Moderate 05/03/2016 Patient Education: Patient Medication Summary Completed 05/03/2016 Appointment: [facility]el[phone] (15 min) Moderate 04/27/2016 Visit Plan: Hypertension - well controlled - continue with current medications, continue with no added salt diet. Pt has been encouraged to exercise daily. The pt has been advised to call the office if there are any acute concerns about change in blood pressure readings at home. Hypothyroidism - pt with chronic hypothyroidism, continue with current medication, will monitor pt to signs or symptoms of lack of adequate supplementation. Pt is to continue with current dose of medication unless directed otherwise. Check labs at regular intervals wither q 3 months or q 6 months based on previous levels of control. Anxiety - per staff report at facility - pt doing fairly well - continue with current medications. 02/02/2016 Patient Education: Patient Medication Summary Completed 02/02/2016 Patient Education: Hypertension Completed 02/02/2016 Visit Plan: Hypertension - well controlled - continue with current medications, continue with no added salt diet. Pt has been encouraged to exercise daily. The pt has been advised to call the office if there are any acute concerns about change in blood pressure readings at home. Anxiety and Depression - uncontrolled - Pt has been counseled about the diagnosis of depression, the potential causes, and risks associated with the diagnosis. The patient has been counseled about treatment options, and understands the risks associated with treatment of depression, as well as the risks associated with NOT treating the depression. I believe the pt will benefit from medical intervention and an antidepressant has been appropriately prescribed for this patient. Hypothyroidism - pt with chronic hypothyroidism, continue with current medication, will monitor pt to signs or symptoms of lack of adequate supplementation. Pt is to continue with current dose of medication unless directed otherwise. Check labs at regular intervals wither q 3 months or q 6 months based on previous levels of control. 12/30/2015 Patient Education: Patient Medication Summary Completed 12/30/2015 Visit Plan: Hypertension - well controlled - continue with current medications, continue with no added salt diet. Pt has been encouraged to exercise daily. The pt has been advised to call the office if there are any acute concerns about change in blood pressure readings at home. Hypothyroidism - pt with chronic hypothyroidism, continue with current medication, will monitor pt to signs or symptoms of lack of adequate supplementation. Pt is to continue with current dose of medication unless directed otherwise. Check labs at regular intervals wither q 3 months or q 6 months based on previous levels of control. Allergies - chronic - recommended pt to use allergy medication as prescribed. Pt has been counseled as to the appropriate use of the medication. Pt to call if allergy symptoms are not controlled with the medication. If using nasal spray, instructions as follows: Nasal spray- use twice daily, one spray per nostril twice daily, after 30 minutes, rinse out nose with saline spray.. Use opposite hand per nostril to spray in the nasal steroid allergy spray. 11/03/2015 Appointment: Martha Hou WPtel: [phone] [facility] (15 min) Moderate 11/03/2015 Patient Education: Patient Medication Summary Completed 11/03/2015 Patient Education: Hypertension Completed 11/03/2015 Visit Plan: Hypertension - uncontrolled - the patient's medications have been modified as documented in the visit note. The patient has been counseled to cut back on salt in diet for a no added salt diet, low fat diet, start an exercise program with low weight bearing exercises and higher aerobic activity for heart health. The patient is to check blood pressure readings as an outpatient and either fax, call, or email the readings to the office next week for practitioner to review. The pt is to call for acute concerns. Arthritis- occasionally uncontrolled symptoms- recommend pt to take antiinflammatory as directed for pain control. Use tylenol for break through pain symptoms. 09/02/2015 Appointment: Martha Hou WPtel: [phone] [facility] (15 min) Moderate 09/02/2015 Patient Education: Patient Medication Summary Completed 09/02/2015 Patient Education: Hypertension Completed 09/02/2015 Visit Plan: Hypertension - uncontrolled - the patient's medications have been modified as documented in the visit note. The patient has been counseled to cut back on salt in diet for a no added salt diet, low fat diet, start an exercise program with low weight bearing exercises and higher aerobic activity for heart health. The patient is to check blood pressure readings as an outpatient and either fax, call, or email the readings to the office next week for practitioner to review. The pt is to call for acute concerns. increase enalapril from 2.5mg bid to 5mg bid. Hypothyroidism - pt with chronic hypothyroidism, continue with current medication, will monitor pt to signs or symptoms of lack of adequate supplementation. Pt is to continue with current dose of medication unless directed otherwise. Check labs at regular intervals wither q 3 months or q 6 months based on previous levels of control. 08/04/2015 Appointment: [facility]el[phone] (15 min) Moderate 08/04/2015 Patient Education: Patient Medication Summary Completed 08/04/2015 Patient Education: Hypertension Completed 08/04/2015 Visit Plan: OA - change voltaren gel to four times daily scheduled x 2 weeks, then three times daily thereafter start glucosamine supplement and PRN tylenol to be increased up to three times daily as needed for pain. Hypertension - well controlled - continue with current medications, continue with no added salt diet. Pt has been encouraged to exercise daily. The pt has been advised to call the office if there are any acute concerns about change in blood pressure readings at home. Chronic Depression and anxiety - the pt has symptoms of chronic anxiety and depression that have been fairly well controlled since the last office visit. The pt has expected periods of exacerbation with abatement of the symptoms with change in situational exposure. No change in current medications. 05/05/2015 Appointment: Martha Hou [facility]Ptel[phone] (15 min) Moderate 05/05/2015 Patient Education: Patient Medication Summary Completed 05/05/2015 Patient Education: Hypertension Completed 05/05/2015 Visit Plan: Hypertension - well controlled - continue with current medications, continue with no added salt diet. Pt has been encouraged to exercise daily. The pt has been advised to call the office if there are any acute concerns about change in blood pressure readings at home. Hyperlipidemia - pt has been counseled about appropriate diet, exercise, and need for low fat food choices. I have discussed the need for the patient to take medications as prescribed. If the patient has negative side effects from the medication, they are to CALL the office and not abruptly discontinue the medication without discussion with a practitioner in the office. We will check labs in 3-6 months for follow up on the patient's chronic medical problem and to assure normal liver response to medications. Breast discomfort - RX for mammogram - however, I have reassured this pt that this is probably not a cancerous process. 04/15/2015 Patient Education: Patient Medication Summary Completed 04/15/2015 Patient Education: Hypertension Completed 04/15/2015 Visit Plan: Hypertension - well controlled - continue with current medications, continue with no added salt diet. Pt has been encouraged to exercise daily. The pt has been advised to call the office if there are any acute concerns about change in blood pressure readings at home. Hypothyroidism - pt with chronic hypothyroidism, continue with current medication, will monitor pt to signs or symptoms of lack of adequate supplementation. Pt is to continue with current dose of medication unless directed otherwise. Check labs at regular intervals wither q 3 months or q 6 months based on previous levels of control. Dementia - pt on namenda - pt to continue with treatment as the patient is tolerating the medication and family has noticed improved symptoms. 02/03/2015 Appointment: Martha Hou WPtel: [address] [place], [place] [id number] (15 min) Moderate 02/03/2015 Patient Education: Patient Medication Summary Completed 02/03/2015 Patient Education: Hypertension Completed 02/03/2015 Visit Plan: Hypertension - well controlled - continue with current medications, continue with no added salt diet. Pt has been encouraged to exercise daily. The pt has been advised to call the office if there are any acute concerns about change in blood pressure readings at home. Hypothyroidism - pt with chronic hypothyroidism, continue with current medication, will monitor pt to signs or symptoms of lack of adequate supplementation. Pt is to continue with current dose of medication unless directed otherwise. Check labs at regular intervals wither q 3 months or q 6 months based on previous levels of control. Hyperlipidemia - pt has been counseled about appropriate diet, exercise, and need for low fat food choices. I have discussed the need for the patient to take medications as prescribed. If the patient has negative side effects from the medication, they are to CALL the office and not abruptly discontinue the medication without discussion with a practitioner in the office. We will check labs in 3-6 months for follow up on the patient's chronic medical problem and to assure normal liver response to medications. Chronic Depression and anxiety - the pt has symptoms of chronic anxiety and depression that have been fairly well controlled since the last office visit. The pt has expected periods of exacerbation with abatement of the symptoms with change in situational exposure. No change in current medications. Allergies - chronic - recommended pt to use allergy medication as prescribed. Pt has been counseled as to the appropriate use of the medication. Pt to call if allergy symptoms are not controlled with the medication. If using nasal spray, instructions as follows: Nasal spray- use twice daily, one spray per nostril twice daily, after 30 minutes, rinse out nose with saline spray.. Use opposite hand per nostril to spray in the nasal steroid allergy spray. 12/02/2014 Appointment: Martha [facility]ou [facility]Ptel[phone] Follow up 12/02/2014 Patient Education: Patient Medication Summary Completed 12/02/2014 Patient Education: Hypertension Completed 12/02/2014 Visit Plan: Hypertension - well controlled - continue with current medications, continue with no added salt diet. Pt has been encouraged to exercise daily. The pt has been advised to call the office if there are any acute concerns about change in blood pressure readings at home. Hypothyroidism - pt with chronic hypothyroidism, continue with current medication, will monitor pt to signs or symptoms of lack of adequate supplementation. Pt is to continue with current dose of medication unless directed otherwise. Check labs at regular intervals wither q 3 months or q 6 months based on previous levels of control. Chronic Depression and anxiety - the pt has symptoms of chronic anxiety and depression that have been fairly well controlled since the last office visit. The pt has expected periods of exacerbation with abatement of the symptoms with change in situational exposure. No change in current medications. Loose stools - decrease power pudding. Pt has been encouraged to move to assisted living in [place] to be closer to family. 10/14/2014 Appointment: Martha [facility]ou [facility]Ptel[phone] Follow up 10/14/2014 Patient Education: Patient Medication Summary Completed 10/14/2014 Patient Education: Hypertension Completed 10/14/2014 Visit Plan: Foot pain- pt has flat feet - has not been wearing supportive shoes, I have recommended an ankle brace and also for pt to get more supportive shoes with better arch support. Shoulder/upper neck pain - recommended pt to start on tiger balm to right neck and upper back/shoulder - also ordered physical therapy for pt. 07/17/2014 Appointment: Martha Hou [facility]Ptel[phone] [facility] Follow up 07/17/2014 Patient Education: Patient Medication Summary Completed 07/17/2014 Visit Plan: Bronchitis - acute case of bronchitis identified. Pt has been given antibiotics, breathing treatments as appropriate, and pt has been instructed to call if symptoms are not improved, or if symptoms acutely worsen. Hypertension - well controlled - continue with current medications, continue with no added salt diet. Pt has been encouraged to exercise daily. The pt has been advised to call the office if there are any acute concerns about change in blood pressure readings at home. Allergies - chronic - recommended pt to use allergy medication as prescribed. Pt has been counseled as to the appropriate use of the medication. Pt to call if allergy symptoms are not controlled with the medication. If using nasal spray, instructions as follows: Nasal spray- use twice daily, one spray per nostril twice daily, after 30 minutes, rinse out nose with saline spray.. Use opposite hand per nostril to spray in the nasal steroid allergy spray. 06/05/2014 Appointment: Martha Hou [facility]Ptel[phone] Follow up 06/05/2014 Patient Education: Patient Medication Summary Completed 06/05/2014 Patient Education: Hypertension Completed 06/05/2014 Visit Plan: Sinusitis - Pt has acute infection - pain in face, maxillary region, Pt informed to use decongestant, RX given to patient, sinus rinses also recommended. Call if symptoms do not show improvement. Allergies - chronic - recommended pt to use allergy medication as prescribed. Pt has been counseled as to the appropriate use of the medication. Pt to call if allergy symptoms are not controlled with the medication. If using nasal spray , instructions as follows: Nasal spray- use twice daily, one spray per nostril twice daily, after 30 minutes, rinse out nose with saline spray.. Use opposite hand per nostril to spray in the nasal steroid allergy spray. Rash-Dr Hou in to evaluate-some area of healing-refill nystatin-triamcinolone cream and use as directed. Call if rash does not resolve 05/08/2014 Patient Education: Patient Medication Summary Completed 05/08/2014 Visit Plan: Arm Pain - xray of arm. Wound Instructions - Pt was instructed to keep the wound clean, wash with antibacterial soap, use triple antibiotic ointment, call if redness, pustular drainage, or any other acute concerns. Medihoney on elbow. 04/17/2014 Appointment: Martha Hou WPtel: [facility] Follow up 04/17/2014 Patient Education: Patient Medication Summary Completed 04/17/2014 Visit Plan: Weight [id number] actually gained 1 lb. No changes at this time. Hypertension - well controlled - continue with current medications, continue with no added salt diet. Pt has been encouraged to exercise daily. The pt has been advised to call the office if there are any acute concerns about change in blood pressure readings at home. Alzheimer's Dementia - Pt with slowly progressive pattern. I have discussed with pt and family the prognosis of this disease state and the need for the family to anticipate further decline with behavior changes. Continue with current plan of treatment. Allergies - chronic - recommended pt to use allergy medication as prescribed. Pt has been counseled as to the appropriate use of the medication. Pt to call if allergy symptoms are not controlled with the medication. If using nasal spray, instructions as follows: Nasal spray- use twice daily, one spray per nostril twice daily, after 30 minutes, rinse out nose with saline spray.. Use opposite hand per nostril to spray in the nasal steroid allergy spray. Kenalog injection today in the office for acute uncontrolled symtpoms 02/27/2014 Appointment: Follow up 02/27/2014 Patient Education: Patient Medication Summary Completed 02/27/2014 Patient Education: Hypertension Completed 02/27/2014 Appointment: Martha Hou WPtel: [facility] Follow up 02/11/2014 Appointment: Martha Hou WPtel: [facility] Follow up 01/02/2014 Visit Plan: Hypothyroidism - pt with chronic hypothyroidism , continue with current medication, will monitor pt to signs or symptoms of lack of adequate supplementation. Pt is to continue with current dose of medication unless directed otherwise. Check labs at regular intervals wither q 3 months or q 6 months based on previous levels of control. Check thyroid function today. Weight loss - pt needs to increase caloric intake. Will have home health weigh her weekly. Hypertension - well controlled - continue with current medications, continue with no added salt diet. Pt has been encouraged to exercise daily. The pt has been advised to call the office if there are any acute concerns about change in blood pressure readings at home. Memory loss - recommended pt to continue with namenda daily. 12/31/2013 Appointment: Martha Hou WPtel[phone] [facility] Follow up 12/31/2013 Patient Education: Patient Medication Summary Completed 12/31/2013 Patient Education: Hypertension Completed 12/31/2013 Visit Plan: Mild Cognitive Impairment - discussed with pt and family the diagnosis, pt is not yet in category of dementia, but is in danger of approaching that level of memory loss. Treatment modalities have been discussed and pt is to be started on namenda xr 28mg daily. Pt has hearing loss - needs to have an auditory evaluation. Gait Instability - RX for cane with a stabilizer. Foot Pain - due to arthritis - continue with current treatments - recommended pt to have her shoes checked to make sure that she has a wide toebox. 12/09/2013 Appointment: Martha Hou [facility]Ptel[phone] Follow up 12/09/2013 Patient Education: Patient Medication Summary Completed 12/09/2013 Patient Education: Hypertension Completed 12/09/2013 Visit Plan: Hypertension - well controlled - continue with current medications, continue with no added salt diet. Pt has been encouraged to exercise daily. The pt has been advised to call the office if there are any acute concerns about change in blood pressure readings at home. Rash on buttock - rx for betamethasone ointment to buttock and also on the new lesion on her lower back. Neck pain - Arthritis - use heat to the painful muscles in her neck and use aspercreme as well. 09/09/2013 Appointment: Martha Hou [facility]Ptel: [phone] Follow up 09/09/2013 Patient Education: Patient Medication Summary Completed 09/09/2013 Patient Education: Hypertension Completed 09/09/2013 Visit Plan: Hypertension - well controlled - continue with current medications, continue with no added salt diet. Pt has been encouraged to exercise daily. The pt has been advised to call the office if there are any acute concerns about change in blood pressure readings at home. Rash on buttock - rx for betamethasone ointment to buttock. Allergies - chronic - recommended pt to use allergy medication as prescribed. Pt has been counseled as the the appropriate use of the medication. Pt to call if allergy symptoms are not controlled with the medication. If using nasal spray, instructions as follows: Nasal spray- use twice daily, one spray per nostril twice daily, after 30 minutes, rinse out nose with saline spray.. Use opposite hand per nostril to spray in the nasal steroid allergy spray. Oral and nasal dryness - recommended humidifier - also pt to use vaseline in nose, and samples of nasal gel given to patient. 06/17/2013 Appointment: Martha Hou [facility]Ptel[phone] Follow up 06/17/2013 Patient Education: Patient Medication Summary Completed 06/17/2013 Patient Education: Hypertension Completed 06/17/2013 Visit Plan: Sinusitis - Pt has acute infection - pain in face, maxillary region, Pt informed to use decongestant, RX given to patient, sinus rinses also recommended. Call if symptoms do not show improvement. 05/28/2013 Appointment: [phone] [id number] [facility] 05/28/2013 Patient Education: Patient Medication Summary Completed 05/28/2013 Visit Plan: Osteopenia/Osteoporosis - insufficiency fracture - recommended shot of forteo daily - will let home health know that the Forteo is to be given daily in the abdomen subcutaenously (alternating sites ). Recommended taller boot to help heal the fracture of her foot - if this does not help - will have to refer to orthopedic surgeon. Hypertension - well controlled - continue with current medications, continue with no added salt diet. Pt has been encouraged to exercise daily. The pt has been advised to call the office if there are any acute concerns about change in blood pressure readings at home. Hypothyroidism - pt with chronic hypothyroidism, continue with current medication, will monitor pt to signs or symptoms of lack of adequate supplementation. Pt is to continue with current dose of medication unless directed otherwise. Check labs at regular intervals wither q 3 months or q 6 months based on previous levels of control. 03/12/2013 Appointment: Martha Hou WPtel: [facility] [place] [phone] Follow up 03/12/2013 Patient Education: Patient Medication Summary Completed 03/12/2013 Patient Education: Hypertension Completed 03/12/2013 Appointment: Martha Hou WPtel: [facility] [place] [phone] Follow up 02/19/2013 Visit Plan: Osteopenia/Osteoporosis - insufficiency fracture - recommended shot of forteo daily - will let home health know that the Forteo is to be given daily in the abdomen subcutaenously (alternating sites ). Recommended taller boot to help heal the fracture of her foot - if this does not help - will have to refer to orthopedic surgeon. Hypertension - well controlled - continue with current medications, continue with no added salt diet. Pt has been encouraged to exercise daily. The pt has been advised to call the office if there are any acute concerns about change in blood pressure readings at home. 01/22/2013 Appointment: Martha Hou WPtel: [phone] [id number] Other 01/22/2013 Patient Education: Patient Medication Summary Completed 01/22/2013 Patient Education: Hypertension Completed 01/22/2013 Visit Plan: Hypertension - well controlled - continue with current medications, continue with no added salt diet. Pt has been encouraged to exercise daily. The pt has been advised to call the office if there are any acute concerns about change in blood pressure readings at home. No change in medications due to pt having normal readings from home health. Allergies - chronic - recommended pt to use allergy medication as prescribed. Pt has been counseled as the the appropriate use of the medication. Pt to call if allergy symptoms are not controlled with the medication. If using nasal spray, instructions as follows: Nasal spray- use twice daily, one spray per nostril twice daily, after 30 minutes, rinse out nose with saline spray.. Use opposite hand per nostril to spray in the nasal steroid allergy spray. Pt also instructed to use the nasal gel/saline spray to moisten her mucus membranes in her nasal passages. Arthritis - improved symptoms with use of voltaren gel. Anxiety - stable, continue with current chronic treatment. 11/14/2012 Appointment: Martha Hou WPtel: [address] [place], [place] [phone] Follow up 11/14/2012 Patient Education: Patient Medication Summary Completed 11/14/2012 Patient Education: Hypertension Completed 11/14/2012 Visit Plan: Hypertension - well controlled - continue with current medications, continue with no added salt diet. Pt has been encouraged to exercise daily. The pt has been advised to call the office if there are any acute concerns about change in blood pressure readings at home. No change in medications due to pt having normal readings from home health. Allergies - chronic - recommended pt to use allergy medication as prescribed. Pt has been counseled as the the appropriate use of the medication. Pt to call if allergy symptoms are not controlled with the medication. If using nasal spray, instructions as follows: Nasal spray- use twice daily, one spray per nostril twice daily, after 30 minutes, rinse out nose with saline spray.. Use opposite hand per nostril to spray in the nasal steroid allergy spray. Pt also instructed to use the nasal gel/saline spray to moisten her mucus membranes in her nasal passages. Arthritis - improved symptoms with use of voltaren gel. Anxiety - stable, continue with current chronic treatment. 09/12/2012 Appointment: Martha Hou WPtel: [address] [place], [place] [id number] [place] Follow up 09/12/2012 Patient Education: Patient Medication Summary Completed 09/12/2012 Patient Education: Hypertension Completed 09/12/2012 Appointment: Martha Hou WPtel: [facility] [place] Follow up 08/28/2012 Appointment: Martha Hou WPtel: [address] [place], [place] [phone] [place] Follow up 08/23/2012 Visit Plan: Hypertension - well controlled - continue with current medications, continue with no added salt diet. Pt has been encouraged to exercise daily. The pt has been advised to call the office if there are any acute concerns about change in blood pressure readings at home. Dry mouth and with oral candidiasis and they share cups, recommend pt to start on nystatin swish and swallow and will monitor her symptoms. Insomnia - improved. 05/31/2012 Appointment: Martha Hou WPtel: [address] Follow up 05/31/2012 Patient Education: Patient Medication Summary Completed 05/31/2012 Patient Education: High Blood Pressure: Essential Hypertension Completed 2011 Visit Plan: Sinusitis - Pt has acute infection - pain in face, maxillary region, Pt informed to use decongestant, RX given to patient, sinus rinses also recommended. Call if symptoms do not show improvement. URI - Pt advised to increase fluids, vitamin C. Discussed natural and expected course of this diagnosis and need to alert me if symtpoms do not follow expected course , or if any worse. RX sent to patient's pharmacy. 05/01/2012 Appointment: Martha Hou WPtel: [address] Other 05/01/2012 Patient Education: Patient Medication Summary Completed 05/01/2012 Visit Plan: Arthritis- uncontrolled symptoms- recommend pt to take antiinflammatory as directed for pain control. Use tylenol for break through pain symptoms. I have recommended pt to cut the meloxicam in 1/2 to 7.5 mg if the pain is not well controlled on the VOLTAREN GEL ALONE, pt is to try to stay off of the meloxicam if possible. Anxiety/Depression/Insomnia - the patient has uncontrolled anxiety and depression and insomnia - and will benefit from an SSRI on a daily basis to attempt control of the symptoms of anxiety ( tachycardia, overwhelming sensations, stress, insomnia, etc). I also believe that the patient will benefit from very low dose of prn benzodiazepine. Pt is aware of the risks and benefits of treament with the above medications..Start on seroquel at 1/2 dose one daily at bedtime, will increase the dose if needed for the insomnia dn anxiety and depression. [place]mouth - has improved off of the doxepin. 03/22/2012 Appointment: Martha [facility]ou [facility]Ptel[facility] [phone] [id number] [facility] 03/22/2012 Patient Education: Patient Medication Summary Completed 03/22/2012 Visit Plan: Hypertension - uncontrolled - the patient's medications have not been changed today, the doctor would like to see what the patient's renal function is prior to change of medications. The patient is to check blood pressure readings as an outpatient and either fax, call, or email the readings to the office next week for practicioner to review. The pt is to call for acute concerns. Home health will check blood pressure and heart rate and fax to the doctor over the next few weeks. Osteoarthritis - uncontrolled in knees and hands - recommend starting pennsaid for the arthritis pain - samples given in clinic today. PENNSAID - pt to use 20 drops per knee three times daily - rub into knees and on hands. HOPEFULLY THE PENNSAID WILL HELP WITH THE ARTHRITIS AND SHE MAY BE ABLE TO EVENTUALLY STOP THE MOBIC. AN ORDER FOR HOME HEALTH PHYSICAL THERAPY AND HOME SAFETY EVAL WILL BE GIVEN TO [facility]. 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 Dry Mouth - due to medication side effect of doxepin. Anxiety and Depression - taper off of the doxepin as follows : DOXEPIN 25 MG IN MORNING, AND 50MG AT BEDTIME X 10 DAYS, THEN 25 MG IN MORNING AND 25MG AT NIGHT X 10 DAYS, THEN 25 MG AT NIGHT X 7 DAYS, THEN STOP. START ON THE CITALOPRAM 10MG AT BEDTIME X 1 WEEK, THEN INCREASE TO 20MG AT BEDTIME THEREAFTER. CAROTID BRUIT - RECOMMENDED CAROTID DOPPLER I WILL SEND A COPY OF THIS GERIATRIC EVALUATION TO [facility] DR. TSANG [place]. 02/20/2012 Appointment: Martha Hou [facility]Ptel[facility] [phone] [id number] [place] New Patient 02/20/2012 Patient Education: Patient Medication Summary Completed 02/20/2012 Patient Education: High Blood Pressure: Essential Hypertension Completed 2011 Instructions Comment ZADITOR is the over the counter medication to replace the rx of LASTACAF. Osteopenia/Osteoporosis - insufficiency fracture - recommended shot of forteo daily - will let home health know that the Forteo is to be given daily in the abdomen subcutaenously (alternating sites). Recommended taller boot to help heal the fracture of her foot - if this does not help - will have to refer to orthopedic surgeon. Hypertension - well controlled - continue with current medications, continue with no added salt diet. Pt has been encouraged to exercise daily. The pt has been advised to call the office if there are any acute concerns about change in blood pressure readings at home. . Hypertension - well controlled - continue with current medications, continue with no added salt diet. Pt has been encouraged to exercise daily. The pt has been advised to call the office if there are any acute concerns about change in blood pressure readings at home. TIA - decrease aspirin to 81mg daily - start on plavix 75mg daily. . Dysphagia - resolved - pt has had no other incidence of difficulty swallowing - no changes at this time - if symptoms return will order swallow study . Hypertension - well controlled - continue with current medications, continue with no added salt diet. Pt has been encouraged to exercise daily. The pt has been advised to call the office if there are any acute concerns about change in blood pressure readings at home. Dry mouth and with oral candidiasis and they share cups, recommend pt to start on nystatin swish and swallow and will monitor her symptoms. Insomnia - improved. . Hypertension - uncontrolled - the patient's medications have not been changed today, the doctor would like to see what the patient's renal function is prior to change of medications. The patient is to check blood pressure readings as an outpatient and either fax , call, or email the readings to the office next week for practicioner to review. The pt is to call for acute concerns. Home health will check blood pressure and heart rate and fax to the doctor over the next few weeks. Osteoarthritis - uncontrolled in knees and hands - recommend starting pennsaid for the arthritis pain - samples given in clinic today. PENNSAID - pt to use 20 drops per knee three times daily - rub into knees and on hands. HOPEFULLY THE PENNSAID WILL HELP WITH THE ARTHRITIS AND SHE MAY BE ABLE TO EVENTUALLY STOP THE MOBIC. AN ORDER FOR HOME HEALTH PHYSICAL THERAPY AND HOME SAFETY EVAL WILL BE GIVEN TO [facility]. 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 Dry Mouth - due to medication side effect of doxepin. Anxiety and Depression - taper off of the doxepin as follows: DOXEPIN 25 MG IN MORNING, AND 50MG AT BEDTIME X 10 DAYS, THEN 25 MG IN MORNING AND 25MG AT NIGHT X 10 DAYS, THEN 25 MG AT NIGHT X 7 DAYS, THEN STOP. START ON THE CITALOPRAM 10MG AT BEDTIME X 1 WEEK, THEN INCREASE TO 20MG AT BEDTIME THEREAFTER. CAROTID BRUIT - RECOMMENDED CAROTID DOPPLER I WILL SEND A COPY OF THIS GERIATRIC EVALUATION TO [facility] DR. TSANG [place]. . Hypertension - well controlled - continue with current medications, continue with no added salt diet. Pt has been encouraged to exercise daily. The pt has been advised to call the office if there are any acute concerns about change in blood pressure readings at home. Hypothyroidism - pt with chronic hypothyroidism, continue with current medication, will monitor pt to signs or symptoms of lack of adequate supplementation. Pt is to continue with current dose of medication unless directed otherwise. Check labs at regular intervals wither q 3 months or q 6 months based on previous levels of control. Hyperlipidemia - pt has been counseled about appropriate diet, exercise, and need for low fat food choices. I have discussed the need for the patient to take medications as prescribed. If the patient has negative side effects from the medication, they are to CALL the office and not abruptly discontinue the medication without discussion with a practitioner in the office. We will check labs in 3-6 months for follow up on the patient's chronic medical problem and to assure normal liver response to medications. . Arthritis- uncontrolled symptoms- recommend pt to take antiinflammatory as directed for pain control. Use tylenol for break through pain symptoms. I have recommended pt to cut the meloxicam in 1/2 to 7.5 mg if the pain is not well controlled on the VOLTAREN GEL ALONE, pt is to try to stay off of the meloxicam if possible. Anxiety/Depression/Insomnia - the patient has uncontrolled anxiety and depression and insomnia - and will benefit from an SSRI on a daily basis to attempt control of the symptoms of anxiety (tachycardia, overwhelming sensations , stress, insomnia, etc). I also believe that the patient will benefit from very low dose of prn benzodiazepine. Pt is aware of the risks and benefits of treament with the above medications..Start on seroquel at 1/2 dose one daily at bedtime, will increase the dose if needed for the insomnia dn anxiety and depression. [place] - has improved off of the doxepin. tiger balm- to right neck and upper back three times daily . Foot pain- pt has flat feet - has not been wearing supportive shoes, I have recommended an ankle brace and also for pt to get more supportive shoes with better arch support. Shoulder/upper neck pain - recommended pt to start on tiger balm to right neck and upper back/shoulder - also ordered physical therapy for pt. . Sinusitis - Pt has acute infection - pain in face, maxillary region, Pt informed to use decongestant, RX given to patient, sinus rinses also recommended. Call if symptoms do not show improvement. URI - Pt advised to increase fluids, vitamin C. Discussed natural and expected course of this diagnosis and need to alert me if symtpoms do not follow expected course, or if any worse. RX sent to patient's pharmacy. . Hypothyroidism - pt with chronic hypothyroidism, continue with current medication, will monitor pt to signs or symptoms of lack of adequate supplementation. Pt is to continue with current dose of medication unless directed otherwise. Check labs at regular intervals wither q 3 months or q 6 months based on previous levels of control. Hypertension - well controlled - continue with current medications, continue with no added salt diet. Pt has been encouraged to exercise daily. The pt has been advised to call the office if there are any acute concerns about change in blood pressure readings at home. Anxiety with mood disorder - continue with depakote - start on lexapro - wean off of risperdal. Monitor symptoms as the medications change - will keep in communication with the Assisted Living facility. use the medihoney on her elbow and change it daily - until the wound is healed. . Arm Pain - xray of arm. Wound Instructions - Pt was instructed to keep the wound clean, wash with antibacterial soap, use triple antibiotic ointment, call if redness, pustular drainage, or any other acute concerns. Medihoney on elbow. . Hypertension - well controlled - continue with current medications, continue with no added salt diet. Pt has been encouraged to exercise daily. The pt has been advised to call the office if there are any acute concerns about change in blood pressure readings at home. Anxiety with mood disorder - continue with depakote - continue with lexapro. left for facility to let me know if they feel like she is doing well enough to get pt on lower dose of ativan. . Hypertension - well controlled - continue with current medications, continue with no added salt diet. Pt has been encouraged to exercise daily. The pt has been advised to call the office if there are any acute concerns about change in blood pressure readings at home. Hypothyroidism - pt with chronic hypothyroidism, continue with current medication, will monitor pt to signs or symptoms of lack of adequate supplementation. Pt is to continue with current dose of medication unless directed otherwise. Check labs at regular intervals wither q 3 months or q 6 months based on previous levels of control. Hyperlipidemia - pt has been counseled about appropriate diet, exercise, and need for low fat food choices. I have discussed the need for the patient to take medications as prescribed. If the patient has negative side effects from the medication, they are to CALL the office and not abruptly discontinue the medication without discussion with a practitioner in the office. We will check labs in 3-6 months for follow up on the patient's chronic medical problem and to assure normal liver response to medications. Chronic Depression and anxiety - the pt has symptoms of chronic anxiety and depression that have been fairly well controlled since the last office visit. The pt has expected periods of exacerbation with abatement of the symptoms with change in situational exposure. No change in current medications. Allergies - chronic - recommended pt to use allergy medication as prescribed. Pt has been counseled as to the appropriate use of the medication. Pt to call if allergy symptoms are not controlled with the medication. If using nasal spray, instructions as follows: Nasal spray- use twice daily, one spray per nostril twice daily, after 30 minutes, rinse out nose with saline spray.. Use opposite hand per nostril to spray in the nasal steroid allergy spray. CALL ME ON MONDAY IF YOUR ALLERGIES AREN'T BETTER AND WE WILL CALL YOU IN AN ANTIBIOTIC FOR A SINUS INFECTION. . Weight njul-[id number]-[id number] actually gained 1 lb. No changes at this time. Hypertension - well controlled - continue with current medications, continue with no added salt diet. Pt has been encouraged to exercise daily. The pt has been advised to call the office if there are any acute concerns about change in blood pressure readings at home. Alzheimer's Dementia - Pt with slowly progressive pattern. I have discussed with pt and family the prognosis of this disease state and the need for the family to anticipate further decline with behavior changes. Continue with current plan of treatment. Allergies - chronic - recommended pt to use allergy medication as prescribed. Pt has been counseled as to the appropriate use of the medication. Pt to call if allergy symptoms are not controlled with the medication. If using nasal spray, instructions as follows: Nasal spray- use twice daily, one spray per nostril twice daily, after 30 minutes, rinse out nose with saline spray.. Use opposite hand per nostril to spray in the nasal steroid allergy spray. Kenalog injection today in the office for acute uncontrolled symtpoms . Hypertension - well controlled - continue with current medications, continue with no added salt diet. Pt has been encouraged to exercise daily. The pt has been advised to call the office if there are any acute concerns about change in blood pressure readings at home. Hypothyroidism - pt with chronic hypothyroidism, continue with current medication, will monitor pt to signs or symptoms of lack of adequate supplementation. Pt is to continue with current dose of medication unless directed otherwise. Check labs at regular intervals wither q 3 months or q 6 months based on previous levels of control. Allergies - chronic - recommended pt to use allergy medication as prescribed. Pt has been counseled as to the appropriate use of the medication. Pt to call if allergy symptoms are not controlled with the medication. If using nasal spray, instructions as follows: Nasal spray- use twice daily, one spray per nostril twice daily, after 30 minutes, rinse out nose with saline spray.. Use opposite hand per nostril to spray in the nasal steroid allergy spray. . Hypertension - well controlled - continue with current medications, continue with no added salt diet. Pt has been encouraged to exercise daily. The pt has been advised to call the office if there are any acute concerns about change in blood pressure readings at home. Hypothyroidism - pt with chronic hypothyroidism, continue with current medication, will monitor pt to signs or symptoms of lack of adequate supplementation. Pt is to continue with current dose of medication unless directed otherwise. Check labs at regular intervals wither q 3 months or q 6 months based on previous levels of control. Hyperlipidemia - pt has been counseled about appropriate diet, exercise, and need for low fat food choices. I have discussed the need for the patient to take medications as prescribed. If the patient has negative side effects from the medication, they are to CALL the office and not abruptly discontinue the medication without discussion with a practitioner in the office. We will check labs in 3-6 months for follow up on the patient's chronic medical problem and to assure normal liver response to medications. Chronic allergies - continue with nasal spray . OA - change voltaren gel to four times daily scheduled x 2 weeks, then three times daily thereafter start glucosamine supplement and PRN tylenol to be increased up to three times daily as needed for pain. Hypertension - well controlled - continue with current medications, continue with no added salt diet. Pt has been encouraged to exercise daily. The pt has been advised to call the office if there are any acute concerns about change in blood pressure readings at home. Chronic Depression and anxiety - the pt has symptoms of chronic anxiety and depression that have been fairly well controlled since the last office visit. The pt has expected periods of exacerbation with abatement of the symptoms with change in situational exposure. No change in current medications. . Hypertension - well controlled - continue with current medications, continue with no added salt diet. Pt has been encouraged to exercise daily. The pt has been advised to call the office if there are any acute concerns about change in blood pressure readings at home. Lip ulcer - ulcer on left lower lip about 0.2 cm Hypothyroidism - pt with chronic hypothyroidism, continue with current medication, will monitor pt to signs or symptoms of lack of adequate supplementation. Pt is to continue with current dose of medication unless directed otherwise. Check labs at regular intervals wither q 3 months or q 6 months based on previous levels of control. parodontax . Hypertension - well controlled - continue with current medications, continue with no added salt diet. Pt has been encouraged to exercise daily. The pt has been advised to call the office if there are any acute concerns about change in blood pressure readings at home. Hypothyroidism - pt with chronic hypothyroidism, continue with current medication, will monitor pt to signs or symptoms of lack of adequate supplementation. Pt is to continue with current dose of medication unless directed otherwise. Check labs at regular intervals wither q 3 months or q 6 months based on previous levels of control. Mouth discomfort - continue with current treatment - rx for magic mouthwash. . Hypertension - well controlled - continue with current medications, continue with no added salt diet. Pt has been encouraged to exercise daily. The pt has been advised to call the office if there are any acute concerns about change in blood pressure readings at home. Anxiety and Depression - uncontrolled - Pt has been counseled about the diagnosis of depression, the potential causes, and risks associated with the diagnosis. The patient has been counseled about treatment options, and understands the risks associated with treatment of depression, as well as the risks associated with NOT treating the depression. I believe the pt will benefit from medical intervention and an antidepressant has been appropriately prescribed for this patient. Hypothyroidism - pt with chronic hypothyroidism, continue with current medication, will monitor pt to signs or symptoms of lack of adequate supplementation. Pt is to continue with current dose of medication unless directed otherwise. Check labs at regular intervals wither q 3 months or q 6 months based on previous levels of control. decrease power pudding (prune juice, bran flakes, apple sauce) to just one dose daily . Hypertension - well controlled - continue with current medications, continue with no added salt diet. Pt has been encouraged to exercise daily. The pt has been advised to call the office if there are any acute concerns about change in blood pressure readings at home. Hypothyroidism - pt with chronic hypothyroidism, continue with current medication, will monitor pt to signs or symptoms of lack of adequate supplementation. Pt is to continue with current dose of medication unless directed otherwise. Check labs at regular intervals wither q 3 months or q 6 months based on previous levels of control. Chronic Depression and anxiety - the pt has symptoms of chronic anxiety and depression that have been fairly well controlled since the last office visit. The pt has expected periods of exacerbation with abatement of the symptoms with change in situational exposure. No change in current medications. Loose stools - decrease power pudding. Pt has been encouraged to move to assisted living in [place] to be closer to family. . Hypertension - well controlled - continue with current medications, continue with no added salt diet. Pt has been encouraged to exercise daily. The pt has been advised to call the office if there are any acute concerns about change in blood pressure readings at home. . Hypothyroidism - pt with chronic hypothyroidism, continue with current medication, will monitor pt to signs or symptoms of lack of adequate supplementation. Pt is to continue with current dose of medication unless directed otherwise. Check labs at regular intervals wither q 3 months or q 6 months based on previous levels of control. Hypertension - well controlled - continue with current medications, continue with no added salt diet. Pt has been encouraged to exercise daily. The pt has been advised to call the office if there are any acute concerns about change in blood pressure readings at home. Anxiety with mood disorder - continue with depakote ZADITOR is the over the counter medication to replace the rx of LASTACAF . Osteopenia/Osteoporosis - insufficiency fracture - recommended shot of forteo daily - will let home health know that the Forteo is to be given daily in the abdomen subcutaenously (alternating sites). Recommended taller boot to help heal the fracture of her foot - if this does not help - will have to refer to orthopedic surgeon. Hypertension - well controlled - continue with current medications, continue with no added salt diet. Pt has been encouraged to exercise daily. The pt has been advised to call the office if there are any acute concerns about change in blood pressure readings at home. Hypothyroidism - pt with chronic hypothyroidism, continue with current medication, will monitor pt to signs or symptoms of lack of adequate supplementation. Pt is to continue with current dose of medication unless directed otherwise. Check labs at regular intervals wither q 3 months or q 6 months based on previous levels of control. . Mild Cognitive Impairment - discussed with pt and family the diagnosis, pt is not yet in category of dementia, but is in danger of approaching that level of memory loss. Treatment modalities have been discussed and pt is to be started on namenda xr 28mg daily. Pt has hearing loss - needs to have an auditory evaluation. Gait Instability - RX for cane with a stabilizer. Foot Pain - due to arthritis - continue with current treatments - recommended pt to have her shoes checked to make sure that she has a wide toebox. . Hypertension - uncontrolled - the patient's medications have been modified as documented in the visit note. The patient has been counseled to cut back on salt in diet for a no added salt diet, low fat diet, start an exercise program with low weight bearing exercises and higher aerobic activity for heart health. The patient is to check blood pressure readings as an outpatient and either fax , call, or email the readings to the office next week for practitioner to review. The pt is to call for acute concerns. Arthritis- occasionally uncontrolled symptoms- recommend pt to take antiinflammatory as directed for pain control. Use tylenol for break through pain symptoms. . Hypertension - well controlled - continue with current medications, continue with no added salt diet. Pt has been encouraged to exercise daily. The pt has been advised to call the office if there are any acute concerns about change in blood pressure readings at home. Dry Mouth - start biotene - staff to spray in pt mouth three times daily Hyperlipidemia - pt has been counseled about appropriate diet, exercise, and need for low fat food choices. I have discussed the need for the patient to take medications as prescribed. If the patient has negative side effects from the medication, they are to CALL the office and not abruptly discontinue the medication without discussion with a practitioner in the office. We will check labs in 3-6 months for follow up on the patient's chronic medical problem and to assure normal liver response to medications. Hypothyroidism - pt with chronic hypothyroidism, continue with current medication, will monitor pt to signs or symptoms of lack of adequate supplementation. Pt is to continue with current dose of medication unless directed otherwise. Check labs at regular intervals wither q 3 months or q 6 months based on previous levels of control. . Hypertension - well controlled - continue with current medications, continue with no added salt diet. Pt has been encouraged to exercise daily. The pt has been advised to call the office if there are any acute concerns about change in blood pressure readings at home. Hypothyroidism - pt with chronic hypothyroidism, continue with current medication, will monitor pt to signs or symptoms of lack of adequate supplementation. Pt is to continue with current dose of medication unless directed otherwise. Check labs at regular intervals wither q 3 months or q 6 months based on previous levels of control. Dementia - pt on namenda - pt to continue with treatment as the patient is tolerating the medication and family has noticed improved symptoms. . Hypertension - uncontrolled - the patient's medications have been modified as documented in the visit note. The patient has been counseled to cut back on salt in diet for a no added salt diet, low fat diet, start an exercise program with low weight bearing exercises and higher aerobic activity for heart health. The patient is to check blood pressure readings as an outpatient and either fax , call, or email the readings to the office next week for practitioner to review. The pt is to call for acute concerns. increase enalapril from 2.5mg bid to 5mg bid. Hypothyroidism - pt with chronic hypothyroidism, continue with current medication, will monitor pt to signs or symptoms of lack of adequate supplementation. Pt is to continue with current dose of medication unless directed otherwise. Check labs at regular intervals wither q 3 months or q 6 months based on previous levels of control. Nasal gel x 1 week, if not improved allergies, then pt should start the astepro nasal spray. Hypertension - well controlled - continue with current medications, continue with no added salt diet. Pt has been encouraged to exercise daily. The pt has been advised to call the office if there are any acute concerns about change in blood pressure readings at home. No change in medications due to pt having normal readings from home health. Allergies - chronic - recommended pt to use allergy medication as prescribed. Pt has been counseled as the the appropriate use of the medication. Pt to call if allergy symptoms are not controlled with the medication. If using nasal spray, instructions as follows: Nasal spray- use twice daily, one spray per nostril twice daily, after 30 minutes, rinse out nose with saline spray.. Use opposite hand per nostril to spray in the nasal steroid allergy spray. Pt also instructed to use the nasal gel/saline spray to moisten her mucus membranes in her nasal passages. Arthritis - improved symptoms with use of voltaren gel. Anxiety - stable, continue with current chronic treatment. Plan: ([id number]) Pneumococcal Polysaccharide Vaccine, 23- Valent, Ad - to be done by home health HOLD CITALOPRAM X 5 DAYS. START ZPACK AND CEFDINIR TOMORROW. START PROBIOTIC X 10 DAYS. . Bronchitis - acute case of bronchitis identified. Pt has been given antibiotics , breathing treatments as appropriate, and pt has been instructed to call if symptoms are not improved, or if symptoms acutely worsen. Hypertension - well controlled - continue with current medications, continue with no added salt diet. Pt has been encouraged to exercise daily. The pt has been advised to call the office if there are any acute concerns about change in blood pressure readings at home. Allergies - chronic - recommended pt to use allergy medication as prescribed. Pt has been counseled as to the appropriate use of the medication. Pt to call if allergy symptoms are not controlled with the medication. If using nasal spray, instructions as follows: Nasal spray- use twice daily, one spray per nostril twice daily, after 30 minutes, rinse out nose with saline spray.. Use opposite hand per nostril to spray in the nasal steroid allergy spray. use vicks and vaseline on q tip in nostrils three times daily to help decrease dryness. . Hypertension - well controlled - continue with current medications, continue with no added salt diet. Pt has been encouraged to exercise daily. The pt has been advised to call the office if there are any acute concerns about change in blood pressure readings at home. Rash on buttock - rx for betamethasone ointment to buttock and also on the new lesion on her lower back. Neck pain - Arthritis - use heat to the painful muscles in her neck and use aspercreme as well. use vicks and vaseline on q tip in nostrils three times daily to help decrease dryness. . Hypertension - well controlled - continue with current medications, continue with no added salt diet. Pt has been encouraged to exercise daily. The pt has been advised to call the office if there are any acute concerns about change in blood pressure readings at home. Rash on buttock - rx for betamethasone ointment to buttock. Allergies - chronic - recommended pt to use allergy medication as prescribed. Pt has been counseled as the the appropriate use of the medication. Pt to call if allergy symptoms are not controlled with the medication. If using nasal spray, instructions as follows: Nasal spray- use twice daily, one spray per nostril twice daily, after 30 minutes, rinse out nose with saline spray.. Use opposite hand per nostril to spray in the nasal steroid allergy spray. Oral and nasal dryness - recommended humidifier - also pt to use vaseline in nose, and samples of nasal gel given to patient. . Lip lesion - resolved - recommended patient to use the sensodyne, call if not improving. . Hypertension - well controlled - continue with current medications, continue with no added salt diet. Pt has been encouraged to exercise daily. The pt has been advised to call the office if there are any acute concerns about change in blood pressure readings at home. Hyperlipidemia - pt has been counseled about appropriate diet, exercise, and need for low fat food choices. I have discussed the need for the patient to take medications as prescribed. If the patient has negative side effects from the medication, they are to CALL the office and not abruptly discontinue the medication without discussion with a practitioner in the office. We will check labs in 3-6 months for follow up on the patient's chronic medical problem and to assure normal liver response to medications. Breast discomfort - RX for mammogram - however, I have reassured this pt that this is probably not a cancerous process. . Hypertension - well controlled - continue with current medications, continue with no added salt diet. Pt has been encouraged to exercise daily. The pt has been advised to call the office if there are any acute concerns about change in blood pressure readings at home. Hypothyroidism - pt with chronic hypothyroidism, continue with current medication, will monitor pt to signs or symptoms of lack of adequate supplementation. Pt is to continue with current dose of medication unless directed otherwise. Check labs at regular intervals wither q 3 months or q 6 months based on previous levels of control. Anxiety - per staff report at facility - pt doing fairly well - continue with current medications. Augmentin twice daily x 10 days. Take probiotic while on the antibiotic You may cut them in half and take 1/2 tab four times daily if it bothers your stomach. . Sinusitis - Pt has acute infection - pain in face, maxillary region, Pt informed to use decongestant, RX given to patient, sinus rinses also recommended. Call if symptoms do not show improvement. Allergies - chronic - recommended pt to use allergy medication as prescribed. Pt has been counseled as to the appropriate use of the medication. Pt to call if allergy symptoms are not controlled with the medication. If using nasal spray, instructions as follows: Nasal spray- use twice daily, one spray per nostril twice daily, after 30 minutes, rinse out nose with saline spray.. Use opposite hand per nostril to spray in the nasal steroid allergy spray. Rash-Dr Hou in to evaluate-some area of healing-refill nystatin- triamcinolone cream and use as directed. Call if rash does not resolve . Sinusitis - Pt has acute infection - pain in face, maxillary region, Pt informed to use decongestant, RX given to patient, sinus rinses also recommended. Call if symptoms do not show improvement. . Hypothyroidism - pt with chronic hypothyroidism, continue with current medication, will monitor pt to signs or symptoms of lack of adequate supplementation. Pt is to continue with current dose of medication unless directed otherwise. Check labs at regular intervals wither q 3 months or q 6 months based on previous levels of control. Check thyroid function today. Weight loss - pt needs to increase caloric intake. Will have home health weigh her weekly. Hypertension - well controlled - continue with current medications, continue with no added salt diet. Pt has been encouraged to exercise daily. The pt has been advised to call the office if there are any acute concerns about change in blood pressure readings at home. Memory loss - recommended pt to continue with namenda daily. Nasal gel x 1 week, if not improved allergies, then pt should start the astepro nasal spray . Hypertension - well controlled - continue with current medications, continue with no added salt diet. Pt has been encouraged to exercise daily. The pt has been advised to call the office if there are any acute concerns about change in blood pressure readings at home. No change in medications due to pt having normal readings from home health. Allergies - chronic - recommended pt to use allergy medication as prescribed. Pt has been counseled as the the appropriate use of the medication. Pt to call if allergy symptoms are not controlled with the medication. If using nasal spray, instructions as follows: Nasal spray- use twice daily, one spray per nostril twice daily, after 30 minutes, rinse out nose with saline spray.. Use opposite hand per nostril to spray in the nasal steroid allergy spray. Pt also instructed to use the nasal gel/saline spray to moisten her mucus membranes in her nasal passages. Arthritis - improved symptoms with use of voltaren gel. Anxiety - stable, continue with current chronic treatment. . Dementia with behavior disorder - Pt has excessive daytime sleepiness - I have recommended the following: change depakote to 125AM and 2508pm and change lexapro to hs. Hypothyroidism - pt with chronic hypothyroidism, continue with current medication, will monitor pt to signs or symptoms of lack of adequate supplementation. Pt is to continue with current dose of medication unless directed otherwise. Check labs at regular intervals wither q 3 months or q 6 months based on previous levels of control. Hypertension - well controlled - continue with current medications, continue with no added salt diet. Pt has been encouraged to exercise daily. The pt has been advised to call the office if there are any acute concerns about change in blood pressure readings at home.
--- OUTSIDE RECORDS SUMMARY | 2018-05-06 10:32 | XMS REPORT | CCD ---
Author Author [facility] Organization [facility] Address [address] [place] [address] Phone Care Team Providers Care Tube M[employer] Name Role Phone PP Unavailable CCM Unavailable Summary Purpose Interface Exchange Insurance Providers Payer name Policy type / Coverage type Covered republican ID Effective Begin Date Effective End Date WPS Medicare Part B Medicare Part B [id number] Unknown [facility] Medicare Part B [id number] 2013 Unknown Family history Daughter Diagnosis Age At Onset Diabetes mellitus Type 2 Unknown Brother Diagnosis Age At Onset Cancer Unknown Mother Diagnosis Age At Onset Dementia Unknown Father Diagnosis Age At Onset Cancer Unknown Social History Social History Element Codes Description Effective Dates Living arrangements Unknown Assisted Living MLF 03/29/2018 Marital status Unknown 11/02/2016 Number of children Unknown 5 [id number] 02/20/2012 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, was [...] ICD-9: 298.9 ICD-10: R41.0 Active 04/11/2018 Unknown Atrophy of thyroid (acquired) ICD-9: 244.8 [...] unspecified ICD-9: 298.9 ICD-10: R41.0 04/11/2018 Active Atrophy of thyroid (acquired) ICD-9: 244.8 [...] Depakote Sprinkles 125 mg capsule,delayed release RxNorm: 2071978 2 Capsule(s) PO QID 04/30/2018 05/29/2018 Active atenolol 50 mg tablet RxNorm: 378204 Tablet(s) PO TAKE ONE TABLET BY MOUTH DAILY 04/30/2018 03/25/2019 Active Ativan 0.5 mg tablet RxNorm: 607030 1 Tablet(s) PO TID 201708/27/2018 Active gabapentin 100 mg capsule RxNorm: 285583 1 Capsule(s) PO TID No Stop Date Active Ativan 0.5 mg tablet RxNorm: 105609 1 Tablet(s) PO TID 201704/29/2018 Inactive Linzess 72 mcg capsule RxNorm: 8215436 1 Capsule(s) PO daily 08/15/2018 Active Linzess 72 mcg capsule RxNorm: 5813018 1 Capsule(s) PO daily 04/17/2018 Inactive glucosamine 500 rr-cueffmrtt-lka no1 416.6 mg-C 20 mg-valerie- bosw tablet RxNorm: 2 Tablet(s) PO daily 03/02/2018 08/27/2018 Active Depakote Sprinkles 125 mg capsule,delayed release RxNorm: 0997693 1 Capsule(s) PO 125 q am and 250 8pm UD 03/02/20182017 Inactive levothyroxine 125 mcg tablet RxNorm: 748099 TAKE ONE TABLET BY MOUTH DAILY EXCEPT TAKE 1/2 TABLET BY MOUTH ON Wednesdays02/20/2018 05/20/2018 Active escitalopram 10 mg tablet RxNorm: 449049 1 Tablet(s) PO QPM 09/10/2018 Active this replaces the citalopram Risperdal 0.5 mg tablet RxNorm: 295374 1 Tablet(s) PO UD 1/2 bid x 1 wk then 1/2 daily x 1 wk then stop 02/13/20182017 Inactive see updated rx changes Depakote Sprinkles 125 mg capsule,delayed release RxNorm: 5472915 1 Capsule(s) PO TID 02/13/2018 03/01/2018 Inactive Floranex 1 million cell tablet RxNorm: TAKE ONE TABLET BY MOUTH EVERY NIGHT AT BEDTIME 01/16/2018 02/01/2018 Inactive ranitidine 150 mg tablet RxNorm: 074276 TAKE ONE TABLET BY MOUTH EVERY NIGHT AT BEDTIME 01/08/2018 07/06/2018 Active glucosamine 500 se-fvjridbgd-ilj no1 416.6 mg-C 20 mg-valerie- bosw tablet RxNorm: 3 Tablet(s) PO daily 01/08/2018 03/01/2018 Inactive citalopram 20 mg tablet RxNorm: 586247 TAKE ONE TABLET BY MOUTH DAILY 12/18/2017 02/12/2018 Inactive lorazepam 0.5 mg tablet RxNorm: 040280 1 Tablet(s) PO QHS 11/2902/12/2018 Inactive Plavix 75 mg tablet RxNorm: 325628 TAKE ONE TABLET BY MOUTH DAILY 11/20/2017 05/18/2018 Active meloxicam 15 mg tablet RxNorm: 063254 TAKE ONE TABLET BY MOUTH DAILY 11/13/2017 05/11/2018 Active spironolactone 25 mg tablet RxNorm: 246740 TAKE ONE TABLET BY MOUTH DAILY 11/13/2017 05/11/2018 Active Vitamin D3 2,000 unit tablet RxNorm: 230672 TAKE TWO TABLETS BY MOUTH ONCE DAILY 11/06/2017 05/04/2018 Active atenolol 100 mg tablet RxNorm: 029202 TAKE ONE TABLET BY MOUTH DAILY 10/31/2017 04/29/2018 Inactive memantine 10 mg tablet RxNorm: 196574 TAKE ONE TABLET BY MOUTH TWICE A DAY 10/30/2017 02/01/2018 Inactive levothyroxine 125 mcg tablet RxNorm: 992244 Tablet(s) TAKE ONE TABLET BY MOUTH EVERY DAY 2017 01/31/2018 Inactive Floranex 1 million cell tablet RxNorm: 1 Tablet(s) PO QHS 01/11/2018 Inactive Floranex 1 million cell tablet RxNorm: 1 Tablet(s) PO QHS 09/13/2017 Inactive Depakote Sprinkles 125 mg capsule,delayed release RxNorm: 0179492 1 Capsule(s) PO BID and 2 at hs 07/06/2017 08/04/2017 Inactive Claritin 10 mg tablet RxNorm: 639595 TAKE ONE TABLET BY MOUTH DAILY 06/27/2017 11/17/2017 Inactive losartan 50 mg tablet RxNorm: 286456 TAKE ONE TABLET BY MOUTH DAILY 06/21/2017 12/17/2017 Inactive atenolol 100 mg tablet RxNorm: 845965 1 Tablet(s) PO daily TAKE ONE TABLET BY MOUTH DAILY 04/24/2017 10/20/2017 Inactive glucosamine 500 ii-owdwphnmg-deb no1 416.6 mg-C 20 mg-valerie- bosw tablet RxNorm: 3 Tablet(s) PO daily 04/21/2017 10/17/2017 Inactive glucosamine 500 yn-kqajayqly-ppl no1 416.6 mg-C 20 mg-valerie- bosw tablet RxNorm: 3 Tablet(s) PO daily 04/19/2017 04/20/2017 Inactive glucosamine 500 xp-vuyulntzj-goe no1 416.6 mg-C 20 mg-valerie- bosw tablet RxNorm: 3 Tablet(s) PO daily 04/19/2017 04/18/2017 Inactive levothyroxine 125 mcg tablet RxNorm: 502643 TAKE ONE TABLET BY MOUTH EVERY MONDAY , MONDAY, MONDAY AND SAT. 01/23/2017 Inactive spironolactone 25 mg tablet RxNorm: 784966 TAKE ONE TABLET BY MOUTH DAILY 12/20/2016 11/12/2017 Inactive meloxicam 15 mg tablet RxNorm: 238722 TAKE ONE TABLET BY MOUTH DAILY 12/20/2016 11/12/2017 Inactive lorazepam 0.5 mg tablet RxNorm: 272526 1 Tablet(s) PO QHS 11/2902/01/2018 Inactive citalopram 20 mg tablet RxNorm: 077921 1 Tablet(s) PO daily 12/17/2017 Inactive mupirocin 2 % topical cream RxNorm: 359680 APPLY 1/2 GRAM TOPICALLY TWO TIMES A DAY TO SKIN LESION ON BUTTOCK 11/09/2016 04/03/2017 Inactive levothyroxine 125 mcg tablet RxNorm: 526302 1 Tablet(s) PO daily on Mon, Mon, Mon , Sat and and 1/2 Tablet on Mon, Mon, 10/31/2016 01/22/2017 Inactive fluticasone 50 mcg/actuation nasal spray,suspension RxNorm: 3514584 USE 1 SPRAY IN EACH NOSTRIL EVERY 12 HOURS NEEDED FOR ALLERGIES 201602/13/2017 Inactive Xanax 0.25 mg tablet RxNorm: 832461 1 Tablet(s) PO BID as needed 08/10/2016 04/03/2017 Inactive Acidophilus 500 million cell tablet RxNorm: 0884534 TAKE ONE TABLET BY MOUTH AT BEDTIME 08/02/2016 10/30/2016 Inactive Xanax 0.25 mg tablet RxNorm: 468072 1 Tablet(s) PO BID as needed 06/13/2016 08/09/2016 Inactive Claritin 10 mg tablet RxNorm: 618223 TAKE ONE TABLET BY MOUTH DAILY 06/13/2016 05/08/2017 Inactive fluticasone 50 mcg/actuation nasal spray,suspension RxNorm: 0374233 PLACE ONE SPRAY IN EACH NOSTRIL TWICE DAILY 04/21/2016 09/17/2016 Inactive atenolol 100 mg tablet RxNorm: 471853 Tablet(s) TAKE ONE TABLET BY MOUTH DAILY 04/11/2016 03/06/2017 Inactive Xanax 0.25 mg tablet RxNorm: 154453 1 Tablet(s) PO BID as needed 04/04/2016 06/12/2016 Inactive citalopram 40 mg tablet RxNorm: 566248 1 Tablet(s) PO daily 11/28/2016 Inactive Vitamin B-12 2,500 mcg sublingual tablet RxNorm: 753751 1 Tablet(s) SL daily 12/25/2015 04/03/2017 Inactive meloxicam 15 mg tablet RxNorm: 866567 TAKE ONE TABLET BY MOUTH DAILY 12/25/2015 04/22/2016 Inactive Request already responded to by other means (e.g. phone or fax) atorvastatin 20 mg tablet RxNorm: 840384 1 Tablet(s) PO TAKE ONE TABLET BY MOUTH AT BEDTIME. 12/14/2015 12/07/2016 Inactive meloxicam 15 mg tablet RxNorm: 956827 Tablet(s) TAKE ONE TABLET BY MOUTH ONCE DAILY. 12/14/2015 12/24/2015 Inactive Namenda XR 28 mg capsule sprinkle,extended release RxNorm: 232943 1 Capsule(s) PO daily 12/14/2015 04/03/2017 Inactive Vitamin B-12 2,500 mcg sublingual tablet RxNorm: 297714 1 Tablet(s) SL daily 12/14/2015 12/24/2015 Inactive spironolactone 25 mg tablet RxNorm: 762863 1 Tablet(s) PO daily 12/14/2015 12/07/2016 Inactive citalopram 20 mg tablet RxNorm: 694885 Tablet(s) TAKE ONE TABLET BY MOUTH ONCE DAILY. 12/14/2015 12/29/2015 Inactive atenolol 100 mg tablet RxNorm: 505973 TAKE ONE TABLET BY MOUTH DAILY 12/07/2015 04/04/2016 Inactive Acidophilus 500 million cell tablet RxNorm: 3157562 1 Tablet(s) PO QHS 12/07/2015 04/04/2016 Inactive refill acidophilus you have available levothyroxine 125 mcg tablet RxNorm: 506695 1 Tablet(s) PO daily on Mon, Wed, Fri , Sat and and 1/2 tablet on Sun, Tue, Th11/03/2015 10/30/2016 Inactive Voltaren 1 % topical gel RxNorm: 431099 TOP APPLY 2 GRAMS TO THE JOINT AREA ON HANDS, ELBOWS AND KNEES 3 TIMES DAILY. 09/02/2015 04/03/2017 Inactive fluticasone 50 mcg/actuation nasal spray,suspension RxNorm: 6654465 [place] USE 1 SPRAY IN EACH NOSTRIL TWICE DAILY. 08/19/2015 04/20/2016 Inactive enalapril maleate 10 mg tablet RxNorm: 814140 1/2 Tablet(s) PO BID 08/04/2015 04/03/2017 Inactive spironolactone 25 mg tablet RxNorm: 211407 1 Tablet(s) PO daily 08/04/2015 12/13/2015 Inactive Claritin 10 mg tablet RxNorm: 795830 Tablet(s) TAKE ONE TABLET BY MOUTH DAILY 06/19/2015 06/12/2016 Inactive levothyroxine 125 mcg tablet RxNorm: 054954 1 Tablet(s) PO daily 05/05/2015 11/02/2015 Inactive Claritin 10 mg tablet RxNorm: 774142 TAKE ONE TABLET BY MOUTH DAILY 03/27/2015 06/18/2015 Inactive Voltaren 1 % topical gel RxNorm: 302586 4 Gram(s) TOP to hands, knees and lower legs QID 02/03/2015 07/02/2015 Inactive Claritin 10 mg tablet RxNorm: 173360 1 Tablet(s) PO daily 201411/25/2014 Inactive DC keisha- NO PA Claritin 10 mg tablet RxNorm: 061390 1 Tablet(s) PO daily 201403/25/2015 Inactive DC keisha- NO PA fluticasone 50 mcg/actuation nasal spray,suspension RxNorm: 852920 [place] USE 1 SPRAY IN EACH NOSTRIL TWICE DAILY. 10/15/2014 08/18/2015 Inactive levothyroxine 150 mcg tablet RxNorm: 064671 1 Tablet(s) PO daily TAKE ONE TABLET BY MOUTH ONCE DAILY. 10/15/20142014 Inactive atorvastatin 20 mg tablet RxNorm: 627880 1 Tablet(s) PO TAKE ONE TABLET BY MOUTH AT BEDTIME. 09/23/2014 01/20/2015 Inactive atenolol 100 mg tablet RxNorm: 724248 TAKE ONE TABLET BY MOUTH ONCE DAILY. 09/09/2014 12/06/2015 Inactive Seroquel 25 mg tablet RxNorm: 213005 Tablet(s) TAKE 1/2 TABLET BY MOUTH ONE TIME DAILY. 08/12/2014 08/11/2014 Inactive atenolol 100 mg tablet RxNorm: 849417 TAKE ONE TABLET BY MOUTH ONCE DAILY. 08/12/2014 09/08/2014 Inactive Seroquel 25 mg tablet RxNorm: 929565 TAKE 1/2 TABLET BY MOUTH ONE TIME DAILY. 08/12/2014 08/03/2015 Inactive meloxicam 15 mg tablet RxNorm: 557464 TAKE ONE TABLET BY MOUTH ONCE DAILY. 07/28/2014 12/13/2015 Inactive Singulair 10 mg tablet RxNorm: 733030 Tablet(s) PO TAKE ONE TABLET BY MOUTH ONCE DAILY. 07/14/2014 01/09/2015 Inactive fluticasone 50 mcg/actuation nasal spray,suspension RxNorm: 858048 USE 1 SPRAY IN EACH NOSTRIL TWICE DAILY. 07/14/201410/14 Inactive fluticasone 50 mcg/actuation nasal spray,suspension RxNorm: 234278 1 [place] BID USE 1 SPRAY IN EACH NOSTRIL TWICE DAILY. 07/14/2014 07/13/2014 Inactive spironolactone 25 mg tablet RxNorm: 118034 TAKE ONE TABLET BY MOUTH ONCE DAILY. 07/08/2014 No Stop Date Active spironolactone 25 mg tablet RxNorm: 309452 Tablet(s) TAKE ONE TABLET BY MOUTH ONCE DAILY. 07/07/2014 07/07/2014 Inactive levothyroxine 175 mcg tablet RxNorm: 513489 1 Tablet(s) PO daily TAKE ONE TABLET BY MOUTH ONCE DAILY. 06/24/20142014 Inactive levothyroxine 175 mcg tablet RxNorm: 204935 Tablet(s) TAKE ONE TABLET BY MOUTH ONCE DAILY. 06/24/2014 06/24/2014 Inactive Vasotec 2.5 mg tablet RxNorm: 623580 2 Tablet(s) PO BID 201301/19/2015 Inactive Vasotec 2.5 mg tablet RxNorm: 645200 2 Tablet(s) PO BID 201307/18/2015 Inactive citalopram 20 mg tablet RxNorm: 025342 Tablet(s) TAKE ONE TABLET BY MOUTH ONCE DAILY. 06/23/2014 06/22/2014 Inactive citalopram 20 mg tablet RxNorm: 340603 TAKE ONE TABLET BY MOUTH ONCE DAILY. 06/23/2014 12/13/2015 Inactive hydrocortisone 1 % topical cream RxNorm: 871299 1 Application TOP BID x 1 week, then daily x1 week then as needed for hemorroids 06/05/2014 09/01/2015 Inactive Kenalog 40 mg/mL suspension for injection RxNorm: 9318831 1 Milliliter(s) Inj 06/05/2014 06/05/2014 Inactive cefdinir 300 mg capsule RxNorm: 716626 1 Capsule(s) PO BID 10/201306/14/2014 Inactive azithromycin 250 mg tablet RxNorm: 527297 1 Tablet(s) PO UD two pills on day #1, then one pill daily x 4 days hold celexa while taking this medication 06/05/2014 06/09/2014 Inactive ceftriaxone 500 mg solution for injection RxNorm: 398660 Inj 06/05/2014 Inactive Voltaren 1 % topical gel RxNorm: 037780 APPLY 2 GRAMS TO THE JOINT AREA ON HANDS, ELBOWS AND KNEES 4 TIMES DAILY. 05/26/2014 05/25/2014 Inactive Voltaren 1 % topical gel RxNorm: 307051 TOP APPLY 2 GRAMS TO THE JOINT AREA ON HANDS, ELBOWS AND KNEES 4 TIMES DAILY. 05/26/2014 09/01/2015 Inactive atorvastatin 20 mg tablet RxNorm: 504026 TAKE ONE TABLET BY MOUTH AT BEDTIME. 05/26/2014 05/25/2014 Inactive atorvastatin 20 mg tablet RxNorm: 816589 1 Tablet(s) PO TAKE ONE TABLET BY MOUTH AT BEDTIME. 05/26/2014 09/22/2014 Inactive atenolol 100 mg tablet RxNorm: 620609 TAKE ONE TABLET BY MOUTH ONCE DAILY. 05/12/2014 08/11/2014 Inactive Augmentin 500 mg-125 mg tablet RxNorm: 554716 1 Tablet(s) PO daily 05/08/2014 05/17/2014 Inactive nystatin-triamcinolone 100,000 unit/g-0.1 % topical cream RxNorm: 7455068 1 Application TOP daily APPLY A THIN LAYER TO THE AFFECTED AREA(S) ON BACK AND BUTTOCK THREE TIMES DAILY. 05/08/201407/2015 Inactive fluticasone 50 mcg/actuation nasal spray,suspension RxNorm: 450236 USE 1 SPRAY IN EACH NOSTRIL TWICE DAILY. 04/28/201407/13 Inactive meloxicam 15 mg tablet RxNorm: 341983 TAKE ONE TABLET BY MOUTH ONCE DAILY. 03/31/2014 07/27/2014 Inactive levothyroxine 175 mcg tablet RxNorm: 450699 TAKE ONE TABLET BY MOUTH ONCE DAILY. 03/24/2014 06/23/2014 Inactive Augmentin 500 mg-125 mg tablet RxNorm: 399844 1 Tablet(s) PO BID 03/04/2014 03/03/2014 Inactive have pt take probiotic bid while on abt Augmentin 500 mg-125 mg tablet RxNorm: 520229 1 Tablet(s) PO BID 03/04/2014 03/13/2014 Inactive have pt take probiotic bid while on abt Kenalog 40 mg/mL suspension for injection RxNorm: 7425410 Milliliter(s) Inj 02/27/2014 02/27/2014 Inactive Namenda XR 28 mg capsule sprinkle,extended release RxNorm: 346769 1 Capsule(s) PO daily 02/24/2014 02/18/2015 Inactive pt given a starter pack in the office, and will then need to start on the namenda XR 28mg dose. levothyroxine 175 mcg tablet RxNorm: 521005 TAKE ONE TABLET BY MOUTH ONCE DAILY. 02/24/2014 03/23/2014 Inactive meloxicam 15 mg tablet RxNorm: 339187 TAKE ONE TABLET BY MOUTH ONCE DAILY. 02/24/2014 03/30/2014 Inactive Seroquel 25 mg tablet RxNorm: 699051 TAKE 1/2 TABLET BY MOUTH ONE TIME DAILY. 02/21/2014 08/11/2014 Inactive atorvastatin 20 mg tablet RxNorm: 654138 TAKE ONE TABLET BY MOUTH AT BEDTIME. 01/27/2014 05/25/2014 Inactive nystatin-triamcinolone 100,000 unit/g-0.1 % topical cream RxNorm: 1742071 TOP APPLY A THIN LAYER TO THE AFFECTED AREA(S) ON BACK AND BUTTOCK THREE TIMES DAILY. 01/20/2014 05/07/2014 Inactive Singulair 10 mg tablet RxNorm: 072726 Tablet(s) PO TAKE ONE TABLET BY MOUTH ONCE DAILY. 01/17/2014 07/13/2014 Inactive atenolol 100 mg tablet RxNorm: 407852 TAKE ONE TABLET BY MOUTH ONCE DAILY. 01/14/2014 05/11/2014 Inactive citalopram 20 mg tablet RxNorm: 264474 TAKE ONE TABLET BY MOUTH ONCE DAILY. 01/06/2014 06/22/2014 Inactive spironolactone 25 mg tablet RxNorm: 291019 TAKE ONE TABLET BY MOUTH ONCE DAILY. 01/06/2014 07/06/2014 Inactive levothyroxine 175 mcg tablet RxNorm: 522452 TAKE ONE TABLET BY MOUTH ONCE DAILY. 12/23/2013 02/23/2014 Inactive Namenda XR 28 mg capsule sprinkle,ER 24hr RxNorm: 133554 1 Capsule(s) PO daily 12/09/2013 02/23/2014 Inactive pt given a starter pack in the office, and will then need to start on the namenda XR 28mg dose. spironolactone 25 mg tablet RxNorm: 675965 Tablet(s) PO TAKE ONE TABLET BY MOUTH ONCE DAILY. 12/09/2013 01/05/2014 Inactive citalopram 20 mg tablet RxNorm: 505438 Tablet(s) PO TAKE ONE TABLET BY MOUTH ONCE DAILY. 12/09/2013 01/05/2014 Inactive Seroquel 25 mg tablet RxNorm: 062099 Tablet(s) PO TAKE 1/2 TABLET BY MOUTH ONE TIME DAILY. 11/28/2013 02/20/2014 Inactive levothyroxine 175 mcg tablet RxNorm: 289835 Tablet(s) PO TAKE ONE TABLET BY MOUTH ONCE DAILY. 10/28/2013 12/22/2013 Inactive meloxicam 15 mg tablet RxNorm: 644905 Tablet(s) PO TAKE ONE TABLET BY MOUTH ONCE DAILY. 10/28/2013 02/23/2014 Inactive nystatin-triamcinolone 100,000 unit/g-0.1 % topical cream RxNorm: 9719417 cream TOP APPLY A THIN LAYER TO THE AFFECTED AREA(S) ON BACK AND BUTTOCK THREE TIMES DAILY. 10/14/2013 01/19/2014 Inactive nystatin-triamcinolone 100,000 unit/g-0.1 % topical cream RxNorm: 1963927 cream TOP APPLY A THIN LAYER TO THE AFFECTED AREA(S) ON BACK AND BUTTOCK THREE TIMES DAILY. 09/30/2013 10/13/2013 Inactive atenolol 100 mg tablet RxNorm: 913780 Tablet(s) PO TAKE ONE TABLET BY MOUTH ONCE DAILY. 09/16/2013 01/13/2014 Inactive spironolactone 25 mg tablet RxNorm: 254596 Tablet(s) PO TAKE ONE TABLET BY MOUTH ONCE DAILY. 09/09/2013 12/08/2013 Inactive nystatin-triamcinolone 100,000 unit/g-0.1 % topical cream RxNorm: 0321281 1 Application TOP BID apply thin layer to affected area three times daily on back and buttock 09/09/2013 09/29/2013 Inactive Voltaren 1 % topical gel RxNorm: 546749 gel TOP APPLY 2 GRAMS TO THE JOINT AREA ON HANDS, ELBOWS AND KNEES 4 TIMES DAILY. 09/02/2013 05/25/2014 Inactive Singulair 10 mg tablet RxNorm: 509780 Tablet(s) PO TAKE ONE TABLET BY MOUTH ONCE DAILY. 08/01/2013 01/16/2014 Inactive atorvastatin 20 mg tablet RxNorm: 820615 Tablet(s) PO TAKE ONE TABLET BY MOUTH AT BEDTIME. 08/01/2013 01/26/2014 Inactive meloxicam 15 mg tablet RxNorm: 604075 Tablet(s) PO TAKE ONE TABLET BY MOUTH ONCE DAILY. 07/01/2013 10/27/2013 Inactive betamethasone dipropionate 0.05 % topical ointment RxNorm: 740501 1 Application TOP TID apply the ointment to site on left buttock three times daily x 2 wks, then daily prn 06/17/2013 09/08/2013 Inactive amoxicillin 500 mg tablet RxNorm: 606137 1 Tablet(s) PO TID 06/06/2013 Inactive Kenalog 40 mg/mL suspension for injection RxNorm: 0714816 Milliliter(s) Inj 05/28/2013 05/28/2013 Inactive nystatin-triamcinolone 100,000 unit/g-0.1 % topical cream RxNorm: 5684288 1 Application TOP BID apply thin layer to affected area twice daily 05/28/2013 06/10/2013 Inactive Rocephin 500 mg solution for injection RxNorm: 048686 Inj 05/2805/28/2013 Inactive atenolol 100 mg tablet RxNorm: 384460 Tablet(s) PO TAKE ONE TABLET BY MOUTH ONCE DAILY. 05/20/2013 09/15/2013 Inactive Vasotec 2.5 mg tablet RxNorm: 279770 2 Tablet(s) PO BID 201206/06/2014 Inactive citalopram 20 mg tablet RxNorm: 910509 1 Tablet(s) PO daily 10/201212/01/2013 Inactive fluticasone 50 mcg/actuation nasal spray,suspension RxNorm: 592167 1 [place] NASAL BID 04/15/2013 04/09/2014 Inactive levothyroxine 175 mcg tablet RxNorm: 440456 1 Tablet(s) PO daily 03/25/2013 09/20/2013 Inactive levothyroxine 175 mcg tablet RxNorm: 323855 1 Tablet(s) PO daily 03/18/2013 03/24/2013 Inactive levothyroxine 175 mcg tablet RxNorm: 149318 1 Tablet(s) PO daily 03/14/2013 03/17/2013 Inactive Fosamax 70 mg tablet RxNorm: 673344 1 Tablet(s) PO QW 201206/16/2013 Inactive levothyroxine 150 mcg tablet RxNorm: 094199 1 Tablet(s) PO daily 01/28/2013 01/27/2013 Inactive levothyroxine 150 mcg tablet RxNorm: 381151 1 Tablet(s) PO daily 01/28/2013 03/13/2013 Inactive Forteo 20 mcg/dose (600 mcg/2.4 mL) Sub-Q Pen Injector RxNorm: 4845131 1 injection SQ daily 01/22/2013 02/11/2013 Inactive Vasotec 2.5 mg tablet RxNorm: 953924 2 Tablet(s) PO BID 201205/12/2013 Inactive Vasotec 2.5 mg tablet RxNorm: 886263 2 Tablet(s) PO BID 201211/18/2012 Inactive Seroquel 25 mg tablet RxNorm: 753052 1/2 Tablet(s) PO daily 11/22/2013 Inactive atenolol 100 mg tablet RxNorm: 277559 1 Tablet(s) PO daily 05/19/2013 Inactive citalopram 20 mg tablet RxNorm: 896258 1 Tablet(s) PO daily 01/201305/05/2013 Inactive Synthroid 150 mcg tablet RxNorm: 457255 1 Tablet(s) PO daily 01/15/2013 Inactive Synthroid 150 mcg tablet RxNorm: 271722 1 Tablet(s) PO daily 09/17/2012 Inactive Astepro 0.15 % (205.5 mcg) Nasal [place] RxNorm: 925871 1 [place] NASAL BID PRN 09/12/2012 09/08/2013 Inactive Pt's daughter will call if they want it filled in the next 1-2 weeks. spironolactone 25 mg tablet RxNorm: 447965 1 Tablet(s) PO daily 09/12/2012 09/06/2013 Inactive Vasotec 2.5 mg tablet RxNorm: 760266 1 Tablet(s) PO BID 201211/13/2012 Inactive Voltaren 1 % topical gel RxNorm: 863976 2 Gram(s) TOP QID use on JOINTS in hands, elbows, knee QID 08/29/2012 02/24/2013 Inactive nystatin 100,000 unit/mL Oral Susp RxNorm: 642085 4 Milliliter(s) BUCC QID 4 mL to mouth four times daily x 10 days. 05/31/2012 09/08/2013 Inactive Synthroid 125 mcg tablet RxNorm: 331271 1 Tablet(s) PO daily may have #90 if cheaper 05/31/2012 09/17/2012 Inactive Voltaren 1 % Topical Gel RxNorm: 885444 2 Gram(s) TOP QID 05/2308/28/2012 Inactive Kenalog 40 mg/mL Susp for Injection RxNorm: 7234214 Milliliter(s) Inj 05/01/2012 05/01/2012 Inactive amoxicillin 500 mg tablet RxNorm: 877192 1 Tablet(s) PO TID 05/14/2012 Inactive Rocephin 500 mg Solution for Injection RxNorm: 180638 Inj 05/0105/01/2012 Inactive Seroquel 25 mg tablet RxNorm: 094010 1/2 Tablet(s) PO daily 03/201210/28/2012 Inactive Seroquel 25 mg tablet RxNorm: 754813 1/2 Tablet(s) PO daily 03/201204/09/2012 Inactive Keisha 180 mg tablet RxNorm: 570691 1 Tablet(s) PO daily 201107/25/2012 Inactive Keisha 180 mg tablet RxNorm: 958591 1 Tablet(s) PO daily 201103/27/2012 Inactive fluticasone 50 mcg/actuation Nasal [place], Susp RxNorm: 3362575 1 [place] NASAL BID 03/28/2012 03/22/2013 Inactive Pennsaid 1.5 % Topical Drops RxNorm: 206508 20 Drop(s) TOP QID 03/27/2012 04/20/2013 Inactive Voltaren 1 % Topical Gel RxNorm: 649462 2 Gram(s) TOP QID 03/2603/26/2012 Inactive pt wants to go back to voltaren gel after finishes the pennsaid she has now. please put these refills on file for that time citalopram 20 mg tablet RxNorm: 095986 1 Tablet(s) PO daily 03/14/2012 Inactive citalopram 20 mg tablet RxNorm: 627656 1 Tablet(s) PO daily 10/07/2012 Inactive Voltaren 1 % Topical Gel RxNorm: 608828 2 Gram(s) TOP QID 03/0903/25/2012 Inactive Voltaren 1 % Topical Gel RxNorm: 308983 2 Gram(s) TOP QID 03/0903/08/2012 Inactive Synthroid 125 mcg tablet RxNorm: 503768 1 Tablet(s) PO daily may have #90 if cheaper 03/02/2012 05/30/2012 Inactive Pennsaid 1.5 % Topical Drops RxNorm: 798185 20 Drop(s) TOP QID 02/29/2012 02/28/2012 Inactive Pennsaid 1.5 % Topical Drops RxNorm: 253584 20 Drop(s) TOP QID 02/29/2012 03/21/2012 Inactive Vasotec 2.5 mg tablet RxNorm: 674112 1 Tablet(s) PO BID 201102/27/2012 Inactive Vasotec 2.5 mg tablet RxNorm: 450092 1 Tablet(s) PO BID 201108/25/2012 Inactive Singulair 10 mg tablet RxNorm: 422056 1 Tablet(s) PO daily 02/13/2013 Inactive spironolactone 25 mg tablet RxNorm: 568506 1 Tablet(s) PO daily 02/20/2012 09/11/2012 Inactive atorvastatin 20 mg tablet RxNorm: 122251 1 Tablet(s) PO QPM 02/13/2013 Inactive doxepin 75 mg capsule RxNorm: 0431568 1 Capsule(s) PO QHS 201103/22/2012 Inactive meloxicam 15 mg tablet RxNorm: 995050 1 Tablet(s) PO daily 02/13/2013 Inactive fluticasone 50 mcg/actuation Nasal [place], Susp RxNorm: 0936829 1 [place] NASAL BID 02/20/2012 03/27/2012 Inactive levothyroxine 100 mcg tablet RxNorm: 292295 1 Tablet(s) PO daily 02/20/2012 03/01/2012 Inactive doxepin 25 mg capsule RxNorm: 0101371 1 Capsule(s) PO QPM 201103/22/2012 Inactive atenolol 100 mg tablet RxNorm: 029196 1 Tablet(s) PO daily 10/21/2012 Inactive melatonin ER 10 mg tablet,extended release RxNorm: 3027687 1 Tablet(s) PO QHS No Start Date Active Tylenol Arthritis Pain 650 mg tablet,extended release RxNorm: 6477433 1 Tablet(s) PO Q8 as needed for pain No Start Date Active Aricept 5 mg tablet RxNorm: 500493 1 Tablet(s) PO QHS No Start Date Active Zyprexa 5 mg tablet RxNorm: 350191 1 Tablet(s) PO BID No Start Date Active Ativan 0.5 mg tablet RxNorm: 459767 1 tab daily and 1 tab q 6 hours prn Tablet(s) PO No Start Date Active vitamin A and D topical ointment RxNorm: 620711 1 Application to left buttock TOP QHS No Start Date Active mupirocin 2 % topical cream RxNorm: 027683 APPLY 1/2 GRAM TOPICALLY TWO TIMES A DAY TO SKIN LESION ON BUTTOCK No Start Date 11/08/2016 Inactive Synthroid 125 mcg tablet RxNorm: 174952 1 Tablet(s) PO daily No Start Date 03/01/2012 Inactive Depakote Sprinkles 125 mg capsule,delayed release RxNorm: 3818276 1 Capsule(s) PO TID No Start Date 07/05/2017 Inactive ranitidine 150 mg tablet RxNorm: 009315 1 Tablet(s) PO QHS No Start Date 01/07/2018 Inactive Exelon Patch 4.6 mg/24 hr transdermal RxNorm: 889867 1 Patch TD daily No Start Date 04/03/2017 Inactive Namenda XR 7 mg-14 mg-21 mg-28 mg capsule,sprinkle,ER 24hr, dose pack RxNorm: 898081 Capsule(s) PO No Start Date 12/30/2013 Inactive Xanax 0.25 mg tablet RxNorm: 239340 1 Tablet(s) PO BID as needed No Start Date 04/03/2016 Inactive lorazepam 0.5 mg tablet RxNorm: 791047 1/2 Tablet(s) PO QHS No Start Date 11/28/2016 Inactive Plavix 75 mg tablet RxNorm: 030515 1 Tablet(s) PO daily No Start Date 11/19/2017 Inactive memantine 10 mg tablet RxNorm: 099288 1 Tablet(s) PO BID No Start Date 10/29/2017 Inactive glucosamine-chondroitin 1,500 mg -1,200 mg/30 mL oral liquid RxNorm: 1 PO daily No Start Date 09/02/2015 Inactive Acidophilus 500 million cell tablet RxNorm: 9272825 1 Tablet(s) PO QHS No Start Date 12/06/2015 Inactive Vitamin B-12 2,500 mcg sublingual tablet RxNorm: 578298 1 Tablet(s) SL daily No Start Date 12/13/2015 Inactive gabapentin 100 mg capsule RxNorm: 539842 1 Capsule(s) PO BID No Start Date 04/29/2018 Inactive Mobic 15 mg tablet RxNorm: 485926 1 Tablet(s) PO daily No Start Date 04/03/2017 Inactive Exelon Patch 9.5 mg/24 hr transdermal RxNorm: 387752 1 Patch TD daily No Start Date 02/01/2018 Inactive Risperdal 0.5 mg tablet RxNorm: 833817 1 Tablet(s) PO TID No Start Date 02/12/2018 Inactive Voltaren 1 % topical gel RxNorm: 056711 1 Gram(s) TOP TID No Start Date 09/01/2015 Inactive Vitamin D3 2,000 unit tablet RxNorm: 420614 2 Tablet(s) PO daily No Start Date 11/05/2017 Inactive Fosamax 70 mg tablet RxNorm: 764998 1 Tablet(s) PO QW No Start Date 02/11/2013 Inactive Aspirin Low Dose 81 mg tablet,delayed release RxNorm: 232232 1 Tablet(s) PO daily No Start Date 07/05/2017 Inactive losartan 50 mg tablet RxNorm: 303196 1 Tablet(s) PO daily No Start Date 06/20/2017 Inactive loratadine 10 mg tablet RxNorm: 307068 1 Tablet(s) PO daily No Start Date 03/01/2018 Inactive glucosamine 116 mg-chondroitin 100 mg-dietary supplement # 25 capsule RxNorm: 3 Capsule(s) PO daily No Start Date 2017 Inactive Medication Administered Medication Codes Instructions Start Date Status ceftriaxone 500 mg solution for injection RxNorm: 141896 06/05/2014 No longer Active Kenalog 40 mg/mL suspension for injection RxNorm: 8594596 1Milliliter 06/05/2014 No longer Active Kenalog 40 mg/mL suspension for injection RxNorm: 6577867 Milliliter 02/27/2014 No longer Active Kenalog 40 mg/mL suspension for injection RxNorm: 2569088 Milliliter 05/28/2013 No longer Active Rocephin 500 mg solution for injection RxNorm: 151227 05/28/2013 No longer Active Kenalog 40 mg/mL Susp for Injection RxNorm: 5127170 Milliliter 05/01/2012 No longer Active Rocephin 500 mg Solution for Injection RxNorm: 628568 05/01/2012 No longer Active Immunizations Vaccine Codes Date Status Influenza CVX: 141 03/22/2012 completed Tetanus, Diptheria, Pertussis CVX: 113 completed Tetanus/Diptheria CVX: 113 03/22/2011 completed Assessments Condition Codes Effective Dates Disorientation, unspecified ICD-10: R41.0 ICD-9: 298.9 04/11/2018 Generalized anxiety disorder ICD-10: F41.1 ICD-9: 300.02 [...] Item Item Code Result Date Culture Urine [id number] URINE CULTURE SEE NOTES 04/16/2018 Urine Culture [...] Urinalysis Ord28 U-Yeast NEGATIVE 04/11/2018 Valproic Acid Xtz817 VALPROIC 41.0 ug/ml 04/11/2018 Thyroid Ord1 TSH (3rd IS) 0.78 uIU/mL 03/27/2018 Thyroid Ord1 Free T3 2.79 pg/ml 03/27/2018 Thyroid Ord1 FREE T4 1.66 ng/dL 03/27/2018 Lipid Ord30 CHOL 107 mg/dL 03/27/2018 Lipid Ord30 HDL 33.0 mg/dl 03/27/2018 Lipid Ord30 TRIG 112 mg/dL 03/27/2018 Lipid Ord30 LDL 52 mg/dL 03/27/2018 Lipid Ord30 C/HDL 3.2 Ratio 03/27/2018 Comp Metabolic Nwl937 NA 137 mEq/L 03/27/2018 Comp Metabolic Jej259 K 5.1 mEq/L 03/27/2018 Comp Metabolic Wsa642 CL 100 mEq/L 03/27/2018 Comp Metabolic Zco350 CO2 28.0 mEq/L 03/27/2018 Comp Metabolic Ghf799 ANION GAP 14 03/27/2018 Comp Metabolic Mhs021 GLUCOSE 91 mg/dL 03/27/2018 Comp Metabolic Ohl891 Creat 1.0 mg/dL 03/27/2018 Comp Metabolic Pbw783 eGFR 56 ml/min/1.73m2 03/27/2018 Comp Metabolic Bui364 BUN 22 mg/dL 03/27/2018 Comp Metabolic Mvc784 B/C Ratio 22.0 Ratio 03/27/2018 Comp Metabolic Xmb737 CALCIUM 9.2 mg/dL 03/27/2018 Comp Metabolic Mqm677 ALK PHOS 83 U/L 03/27/2018 Comp Metabolic Okt730 AST(SGOT) 11 U/L 03/27/2018 Comp Metabolic Hyv459 ALT(SGPT) 8 U/L 03/27/2018 Comp Metabolic Wjg446 BILI T 0.4 mg/dL 03/27/2018 Comp Metabolic Ryo017 ALBUMIN 3.5 g/dL 03/27/2018 Comp Metabolic Mnn203 TPRO 6.2 g/dL 03/27/2018 Comp Metabolic Bld352 GLOB 2.7 g/dL 03/27/2018 Comp Metabolic Ztz475 A/G Ratio 1.3 Ratio 03/27/2018 Comp Metabolic Eps840 Osmo 277 mOsmo 03/27/2018 Comp Metabolic Rgl248 NA 132 mEq/L 03/06/2018 Comp Metabolic Ghk642 K 4.5 mEq/L 03/06/2018 Comp Metabolic Aoy914 CL 95 mEq/L 03/06/2018 Comp Metabolic Krp729 CO2 27.0 mEq/L 03/06/2018 Comp Metabolic Yii463 ANION GAP 15 03/06/2018 Comp Metabolic Ypf174 GLUCOSE 186 mg/dL 03/06/2018 Comp Metabolic Fgt891 Creat 1.1 mg/dL 03/06/2018 Comp Metabolic Vmr107 eGFR 52 ml/min/1.73m2 03/06/2018 Comp Metabolic Irv204 BUN 20 mg/dL 03/06/2018 Comp Metabolic Lim437 B/C Ratio 18.7 Ratio 03/06/2018 Comp Metabolic Oby498 CALCIUM 9.1 mg/dL 03/06/2018 Comp Metabolic Ift007 ALK PHOS 89 U/L 03/06/2018 Comp Metabolic Mcb834 AST(SGOT) 13 U/L 03/06/2018 Comp Metabolic Ooq231 ALT(SGPT) 9 U/L 03/06/2018 Comp Metabolic Vnk486 BILI T 0.5 mg/dL 03/06/2018 Comp Metabolic Uyq399 ALBUMIN 3.9 g/dL 03/06/2018 Comp Metabolic Ysn672 TPRO 6.3 g/dL 03/06/2018 Comp Metabolic Ytq777 GLOB 2.4 g/dL 03/06/2018 Comp Metabolic Rdh495 A/G Ratio 1.6 Ratio 03/06/2018 Comp Metabolic Vba561 Osmo 272 mOsmo 03/06/2018 Valproic Acid Ubf920 VALPROIC 31.0 ug/ml 03/06/2018 Tsh Ord6 TSH (3rd IS) 0.08 uIU/mL 01/08/2018 Free T4 Ptk834 FREE T4 1.42 ng/dL 01/08/2018 T4 Ord4 T4 12.4 ug/dL 01/08/2018 Tsh Ord6 TSH (3rd IS) 7.31 uIU/mL 10/03/2017 Comp Metabolic Bca119 NA 132 mEq/L 10/03/2017 Comp Metabolic Xbl797 K 4.7 mEq/L 10/03/2017 Comp Metabolic Qxk238 CL 96 mEq/L 10/03/2017 Comp Metabolic Fgg533 CO2 30.0 mEq/L 10/03/2017 Comp Metabolic Scc446 ANION GAP 11 10/03/2017 Comp Metabolic Ldf338 GLUCOSE 101 mg/dL 10/03/2017 Comp Metabolic Pma465 Creat 1.2 mg/dL 10/03/2017 Comp Metabolic Zto213 eGFR 48 ml/min/1.73m2 10/03/2017 Comp Metabolic Pjp367 BUN 27 mg/dL 10/03/2017 Comp Metabolic Tpw939 B/C Ratio 23.5 Ratio 10/03/2017 Comp Metabolic Fez937 CALCIUM 9.0 mg/dL 10/03/2017 Comp Metabolic Sqd562 ALK PHOS 70 U/L 10/03/2017 Comp Metabolic Qkh382 AST(SGOT) 12 U/L 10/03/2017 Comp Metabolic Rvl266 ALT(SGPT) 8 U/L 10/03/2017 Comp Metabolic Lks665 BILI T 0.4 mg/dL 10/03/2017 Comp Metabolic Yen442 ALBUMIN 3.8 g/dL 10/03/2017 Comp Metabolic Vqy167 TPRO 5.9 g/dL 10/03/2017 Comp Metabolic Ksh348 GLOB 2.1 g/dL 10/03/2017 Comp Metabolic Qpa983 A/G Ratio 1.8 Ratio 10/03/2017 Comp Metabolic Kpd504 Osmo 270 mOsmo 10/03/2017 Free T4 Wox907 FREE T4 0.71 ng/dL 10/03/2017 Cbc With [...] 16.3 % 10/03/2017 Cbc With Differential Ord2 [place]% 9.4 % 10/03/2017 Cbc With Differential Ord2 [...] 1.17 K/ul 10/03/2017 Cbc With Differential Ord2 [place] ABS# 0.7 K/ul 10/03/2017 Cbc With Differential Ord2 Eos ABS# 0.1 K/ul 10/03/2017 Cbc With Differential Ord2 Baso ABS# 0.0 K/ul 10/03/2017 Lipid Ord30 CHOL 108 mg/dL 10/03/2017 Lipid Ord30 HDL 50.0 mg/dl 10/03/2017 Lipid Ord30 TRIG 140 mg/dL 10/03/2017 Lipid Ord30 LDL 30 mg/dL 10/03/2017 Lipid Ord30 C/HDL 2.2 Ratio 10/03/2017 Valproic Acid Lgw377 VALPROIC 39.0 ug/ml 07/24/2017 Free T4 Qaj985 FREE T4 1.28 ng/dL 05/03/2016 Cbc With [...] 100.3 fl 05/03/2016 Cbc With Differential Ord2 [place]% 10.3 % 05/03/2016 Cbc With Differential Ord2 [...] 1.30 K/ul 05/03/2016 Cbc With Differential Ord2 [place] ABS# 0.6 K/ul 05/03/2016 Cbc With Differential Ord2 Eos ABS# 0.2 K/ul 05/03/2016 Cbc With Differential Ord2 Baso ABS# 0.0 K/ul 05/03/2016 Comp Metabolic Xmd540 NA 137 mEq/L 05/03/2016 Comp Metabolic Chf590 K 4.8 mEq/L 05/03/2016 Comp Metabolic Qdj477 CL 104 mEq/L 05/03/2016 Comp Metabolic Ior686 CO2 27.0 mEq/L 05/03/2016 Comp Metabolic Fbd860 ANION GAP 11 05/03/2016 Comp Metabolic Ych201 GLUCOSE 100 mg/dL 05/03/2016 Comp Metabolic Npg188 Creat 1.1 mg/dL 05/03/2016 Comp Metabolic Jsq701 eGFR 53 ml/min/1.73m2 05/03/2016 Comp Metabolic Gsu575 BUN 31 mg/dL 05/03/2016 Comp Metabolic Iwc676 B/C Ratio 29.2 Ratio 05/03/2016 Comp Metabolic Sxk217 CALCIUM 9.1 mg/dL 05/03/2016 Comp Metabolic Lla220 ALK PHOS 93 U/L 05/03/2016 Comp Metabolic Idv196 AST(SGOT) 15 U/L 05/03/2016 Comp Metabolic Xpn106 ALT(SGPT) 11 U/L 05/03/2016 Comp Metabolic Agn766 BILI T 0.5 mg/dL 05/03/2016 Comp Metabolic Evt659 ALBUMIN 3.9 g/dL 05/03/2016 Comp Metabolic Ttt487 TPRO 6.2 g/dL 05/03/2016 Comp Metabolic Pod669 GLOB 2.3 g/dL 05/03/2016 Comp Metabolic Oiw259 A/G Ratio 1.6 Ratio 05/03/2016 Comp Metabolic Nrb163 Osmo 280 mOsmo 05/03/2016 Tsh Ord6 hTSH II 0.03 uIU/mL 05/03/2016 Free T4 Ila553 FREE T4 1.44 ng/dL 12/30/2015 Tsh Ord6 [...] 31.7 pg 09/03/2015 Cbc With Differential Ord2 [place]% 11.5 % 09/03/2015 Cbc With Differential Ord2 [...] 1.06 K/ul 09/03/2015 Cbc With Differential Ord2 [place] ABS# 0.5 K/ul 09/03/2015 Cbc With Differential [...] Ord30 C/HDL 2.4 Ratio 09/03/2015 Comp Metabolic Kra479 NA 138 mEq/L 09/03/2015 Comp Metabolic Gjy556 K 4.1 mEq/L 09/03/2015 Comp Metabolic Bgn327 CL 104 mEq/L 09/03/2015 Comp Metabolic Imk278 CO2 27.0 mEq/L 09/03/2015 Comp Metabolic Xsv029 ANION GAP 11 09/03/2015 Comp Metabolic Bmt412 GLUCOSE 108 mg/dL 09/03/2015 Comp Metabolic Wtk644 Creat 0.9 mg/dL 09/03/2015 Comp Metabolic Uxd190 eGFR 62 ml/min/1.73m2 09/03/2015 Comp Metabolic Tbk192 BUN 33 mg/dL 09/03/2015 Comp Metabolic Ivn681 B/C Ratio 35.5 Ratio 09/03/2015 Comp Metabolic Wiq899 CALCIUM 9.5 mg/dL 09/03/2015 Comp Metabolic Dyb533 ALK PHOS 87 U/L 09/03/2015 Comp Metabolic Igc824 AST(SGOT) 14 U/L 09/03/2015 Comp Metabolic Amz104 ALT(SGPT) 10 U/L 09/03/2015 Comp Metabolic Rzc631 BILI T 0.8 mg/dL 09/03/2015 Comp Metabolic Jza456 ALBUMIN 4.0 g/dL 09/03/2015 Comp Metabolic Mmn865 TPRO 6.2 g/dL 09/03/2015 Comp Metabolic Agf258 GLOB 2.2 g/dL 09/03/2015 Comp Metabolic Vfs970 A/G Ratio 1.8 Ratio 09/03/2015 Comp Metabolic Opp379 Osmo 283 mOsmo 09/03/2015 T4 Ord4 T4 11.9 ug/dL 09/03/2015 Free T4 Idj244 FREE T4 1.80 ng/dL 04/16/2015 Tsh Ord6 hTSH II 0.01 uIU/mL 04/16/2015 Tsh Ord6 hTSH II 0.14 uIU/mL 03/24/2015 Lipid Ord30 CHOL 105 mg/dL 03/24/2015 Lipid Ord30 HDL 44.0 mg/dl 03/24/2015 Lipid Ord30 TRIG 92 mg/dL 03/24/2015 Lipid Ord30 LDL 43 mg/dL 03/24/2015 Lipid Ord30 C/HDL 2.4 Ratio 03/24/2015 Comp Metabolic Xbd866 NA 137 mEq/L 03/24/2015 Comp Metabolic Jrl233 K 4.0 mEq/L 03/24/2015 Comp Metabolic Nik677 CL 103 mEq/L 03/24/2015 Comp Metabolic Zzd065 CO2 25.0 mEq/L 03/24/2015 Comp Metabolic Ehn457 ANION GAP 13 03/24/2015 Comp Metabolic Xnd455 GLUCOSE 151 mg/dL 03/24/2015 Comp Metabolic Cvv781 Creat 1.0 mg/dL 03/24/2015 Comp Metabolic Fvg947 eGFR 55 ml/min/1.73m2 03/24/2015 Comp Metabolic Opk420 BUN 31 mg/dL 03/24/2015 Comp Metabolic Ojn182 B/C Ratio 30.4 Ratio 03/24/2015 Comp Metabolic Gln450 CALCIUM 9.4 mg/dL 03/24/2015 Comp Metabolic Dfj212 ALK PHOS 61 U/L 03/24/2015 Comp Metabolic Chh465 AST(SGOT) 14 U/L 03/24/2015 Comp Metabolic Hlb858 ALT(SGPT) 14 U/L 03/24/2015 Comp Metabolic Zev396 BILI T 0.5 mg/dL 03/24/2015 Comp Metabolic Stf685 ALBUMIN 3.8 g/dL 03/24/2015 Comp Metabolic Gpc800 TPRO 5.8 g/dL 03/24/2015 Comp Metabolic Mwx147 GLOB 2.0 g/dL 03/24/2015 Comp Metabolic Vhv083 A/G Ratio 1.9 Ratio 03/24/2015 Comp Metabolic Pnb861 Osmo 283 mOsmo 03/24/2015 Cbc With Differential [...] hTSH II 0.65 uIU/mL 01/14/2015 Free T4 Alt106 FREE T4 1.23 ng/dL 01/14/2015 TSH [id number] TSH 1.780 uIU/ML 12/31/2013 FREE T4 9052831 FREE T4 1.22 NG/DL 12/31/2013 CBC 4686974 WBC 4.8 10e9/L 09/09/2013 CBC 2671702 RBC 3.09 10e12/L 09/09/2013 CBC 2653385 HGB 10.1 g/dL 09/09/2013 CBC 1584390 HCT DET 30.7 % 09/09/2013 CBC 8219007 MCV 99.4 fL 09/09/2013 CBC 4237201 MCH 32.7 pg 09/09/2013 CBC 8144346 MCHC 32.9 g/dL 09/09/2013 CBC 0901076 PLT 228 10e9/L 09/09/2013 CBC 3682795 MPV 9.7 fL 09/09/2013 CBC 4315297 CHEMA % 57.6 % 09/09/2013 CBC 9164098 LY % 28.4 % 09/09/2013 CBC 1486310 MON % 9.8 % 09/09/2013 CBC 8086158 EOS % 3.8 % 09/09/2013 CBC 0147616 BASO % 0.4 % 09/09/2013 CBC 3366774 RDW 13.2 % 09/09/2013 CBC 2117821 ABS CHEMA 2.76 10e9/L 09/09/2013 CBC 4167399 ABS LYMPH 1.36 10e9/L 09/09/2013 CBC 7612271 ABS MONO 0.47 10e9/L 09/09/2013 CBC 2926148 ABS EOS 0.18 10e9/L 09/09/2013 CBC 0998343 ABS BASO 0.02 10e9/L 09/09/2013 CBC 6610838 RDW-SD 46.2 fL 09/09/2013 CHEM 14 1563987 AST 19 U/L 09/09/2013 CHEM 14 4323835 ALT 14 IU/L 09/09/2013 CHEM 14 4989149 BUN 31 MG/DL 09/09/2013 CHEM 14 3637865 ALBUMIN 4.1 GM/DL 09/09/2013 CHEM 14 4693293 CHLORIDE 107 MMOL/L 09/09/2013 CHEM 14 0449528 BILI TOT 0.4 MG/DL 09/09/2013 CHEM 14 8062813 ALK PHOS 58 U/L 09/09/2013 CHEM 14 7055103 SODIUM 140 MMOL/L 09/09/2013 CHEM 14 3115655 CREATININE 1.01 MG/DL 09/09/2013 CHEM 14 0614391 CALCIUM 9.4 MG/DL 09/09/2013 CHEM 14 1142071 POTASSIUM 4.8 MMOL/L 09/09/2013 CHEM 14 2022794 PROT TOT 5.1 GM/DL 09/09/2013 CHEM 14 3810280 GLUCOSE 139 MG/DL 09/09/2013 CHEM 14 3246140 BICARB 30 MMOL/L 09/09/2013 CHEM 14 2486783 ANION GAP 3 MEQ/L 09/09/2013 GFR CALC 3323742 GFR AA >60 ML/MIN 09/09/2013 GFR CALC 8814307 GFR NON-AA 53.0L ML/MIN 09/09/2013 FREE T4 8039126 FREE T4 1.45 NG/DL 09/09/2013 TSH 4367512 TSH 0.309 uIU/ML 09/09/2013 FREE T4 9156760 FREE T4 1.22 NG/DL 03/12/2013 TSH 3583471 TSH 5.747 uIU/ML 03/12/2013 GFR CALC 7716399 GFR AA >60 ML/MIN 03/12/2013 GFR CALC 1401588 GFR NON-AA 54.0L ML/MIN 03/12/2013 CHEM 14 6804777 AST 19 U/L 03/12/2013 CHEM 14 1666069 ALT 15 U/L 03/12/2013 CHEM 14 2515669 BUN 32 MG/DL 03/12/2013 CHEM 14 6354554 ALBUMIN 4.2 GM/DL 03/12/2013 CHEM 14 7598005 CHLORIDE 102 MMOL/L 03/12/2013 CHEM 14 3888043 BILI TOT 0.4 MG/DL 03/12/2013 CHEM 14 1850403 ALK PHOS 78 U/L 03/12/2013 CHEM 14 8174151 SODIUM 137 MMOL/L 03/12/2013 CHEM 14 7396664 CREATININE 0.99 MG/DL 03/12/2013 CHEM 14 1479720 CALCIUM 9.3 MG/DL 03/12/2013 CHEM 14 2001029 POTASSIUM 4.3 MMOL/L 03/12/2013 CHEM 14 9931065 PROT TOT 6.3 GM/DL 03/12/2013 CHEM 14 0286959 GLUCOSE 170 MG/DL 03/12/2013 CHEM 14 2266854 BICARB 27 MMOL/L 03/12/2013 CHEM 14 3378891 ANION GAP 8 MMOL/L 03/12/2013 Review of [...] 2013 Ears/Nose/Throat/Neck sinus congestion Ears/Nose/Throat/Neck sore throat 2013 Cardiovascular No chest pain/pressure Respiratory No productive [...] 1994 Ears/Nose/Throat external ear Overall: normal mastoids 03/29/2018 [...] benign 03/29/2018 None Full Exam - General 1995 Ears/Nose/Throat oral cavity/pharynx/larynx Oral mucosa: moist 03/29/2018 None Full Exam - General 1994 Respiratory auscultation Overall: breath sounds clear bilaterally 03/29/2018 None Full Exam - General 1994 Respiratory respiratory effort/rhythm Overall: no retractions 03/29/2018 [...] mastoids 03/01/2018 None Full Exam - General 1995 Ears/Nose/Throat external nose Overall: benign appearance 03/01/2018 None Full Exam - General 1994 Ears/Nose/Throat internal nose Overall: bilateral nasal cavities clear 03/01/2018 None Full Exam - General 1995 Ears/Nose/Throat [...] 1995 Musculoskeletal digits and nails DIPs: nodule 01/15/2018 [...] unsteadiness 07/06/2017 None Full Exam - General 1994 [...] disease 08/04/2015 None Full Exam - General 1994 [...] 1994 Musculoskeletal digits and nails DIPs: second 12/02/2014 [...] rate 05/08/2014 None Full Exam - General 1995 Cardiovascular extremities Overall: no clubbing 05/08/2014 None [...] General 1994 Ears/Nose/Throat lips/teeth/gingiva Overall: benign lips 04/17/2014 None [...] deformity 04/17/2014 None Full Exam - General 1995 Musculoskeletal digits and nails DIPs: decreased flexion 04/17/2014 None Full Exam - General 1995 Musculoskeletal digits and nails DIPs: decreased extension 04/17/2014 None Full Exam - General 1995 Musculoskeletal digits and nails Deformities/Nodules: heberden's node 04/17/2014 None Full Exam - General 1995 Musculoskeletal [...] mastoids 02/27/2014 None Full Exam - General 1994 Ears/Nose/Throat external nose Overall: benign appearance 02/27/2014 None Full Exam - General 1995 Ears/Nose/Throat otoscopic exam External auditory canal: partial cerumen occlusion 02/27/2014 removed with ear curette Full Exam - General 1994 Ears/Nose/Throat otoscopic exam Tympanic membrane: a normal exam 02/27/2014 None Full Exam - General 1995 Ears/Nose/Throat otoscopic exam Tympanic membrane: tympanosclerosis 02/27/2014 [...] 1994 Abdomen abdominal exam Overall: no tenderness 02/27/2014 None Full Exam - General 1995 Abdomen abdominal exam Overall: normal bowel sounds 02/27/2014 None Full Exam - General 1994 Abdomen abdominal exam Periumbilical: non-tender to palpation 02/27/2014 umbilical hernia Full Exam - General 1995 Abdomen liver and spleen exam Overall: no hepatosplenomegaly 02/27/2014 None Full Exam - General 1994 Abdomen liver and spleen exam Overall: no stigmata of chronic liver disease 02/27/2014 None Full Exam - General 1995 Lymphatic neck nodes Overall: anterior cervical chain benign 02/27/2014 None Full Exam - General 1995 Lymphatic neck nodes Overall: posterior cervical chain benign 02/27/2014 None Full Exam - General 1994 Musculoskeletal digits and nails Nails: a normal exam 02/27/2014 None Full Exam - General 1994 Musculoskeletal digits and nails DIPs: first 02/27/2014 ulnar deviation of the DIP Full Exam - General 1994 Musculoskeletal digits and nails DIPs: second 02/27/2014 ulnar deviation of DIP Full Exam - General 1994 Musculoskeletal digits and nails DIPs: nodule 02/27/2014 [...] appearance 12/31/2013 None Full Exam - General 1994 Ears/Nose/Throat otoscopic exam External auditory canal: partial cerumen occlusion 12/31/2013 removed with ear curette Full Exam - General 1994 Ears/Nose/Throat otoscopic exam Tympanic membrane: a normal exam 12/31/2013 None Full Exam - General 1994 Ears/Nose/Throat otoscopic exam Tympanic membrane: tympanosclerosis 12/31/2013 None Full Exam - General 1994 [...] 1994 Ears/Nose/Throat oral cavity/pharynx/larynx Oral mucosa: moist 12/31/2013 None Full Exam - General 1994 Respiratory auscultation Overall: breath sounds clear bilaterally 12/31/2013 None Full Exam - General 1994 Respiratory respiratory effort/rhythm Overall: no retractions 12/31/2013 None Full Exam - General 1995 Respiratory respiratory effort/rhythm Overall: normal rate 12/31/2013 [...] 1994 Musculoskeletal digits and nails DIPs: nodule 12/31/2013 None Full Exam - General 1994 Musculoskeletal digits and nails DIPs: deformity 12/31/2013 None Full Exam - General 1994 Musculoskeletal digits and nails DIPs: decreased flexion 12/31/2013 None Full Exam - General 1994 Musculoskeletal digits and nails DIPs: decreased extension 12/31/2013 None Full Exam - General 1994 [...] accomodation 12/09/2013 None Full Exam - General 1994 Ears/Nose/Throat external ear Overall: normal appearance 12/09/2013 None Full Exam - General 1994 Ears/Nose/Throat external ear Overall: normal mastoids 12/09/2013 None Full Exam - General 1994 Ears/Nose/Throat external nose Overall: benign appearance 12/09/2013 None Full Exam - General 1994 Ears/Nose/Throat otoscopic exam External auditory canal: partial cerumen occlusion 12/09/2013 removed with ear curette Full Exam - General 1994 Ears/Nose/Throat otoscopic exam Tympanic membrane: a normal exam 12/09/2013 None Full Exam - General 1994 Ears/Nose/Throat otoscopic exam Tympanic membrane: tympanosclerosis 12/09/2013 [...] 1994 Ears/Nose/Throat oral cavity/pharynx/larynx Oral mucosa: moist 12/09/2013 [...] 1994 Abdomen abdominal exam Overall: no tenderness 12/09/2013 None Full Exam - General 1994 Abdomen abdominal exam Overall: normal bowel sounds 12/09/2013 None Full Exam - General 1994 Abdomen abdominal exam Periumbilical: non-tender to palpation 12/09/2013 umbilical hernia Full Exam - General 1995 Abdomen liver and spleen exam Overall: no hepatosplenomegaly 12/09/2013 None Full Exam - General 1995 Abdomen liver and spleen exam Overall: no stigmata of chronic liver disease 12/09/2013 None Full Exam - General 1995 Lymphatic neck nodes Overall: anterior cervical chain benign 12/09/2013 None Full Exam - General 1995 Lymphatic neck nodes Overall: posterior cervical chain benign 12/09/2013 None Full Exam - General 1995 Musculoskeletal digits and nails Nails: a normal exam 12/09/2013 None Full Exam - General 1995 Musculoskeletal digits and nails DIPs: first 12/09/2013 [...] appearance 09/09/2013 None Full Exam - General 1994 Ears/Nose/Throat external ear Overall: normal mastoids 09/09/2013 None Full Exam - General 1994 Ears/Nose/Throat external nose Overall: benign appearance 09/09/2013 None Full Exam - General 1994 Ears/Nose/Throat otoscopic exam External auditory canal: partial cerumen occlusion 09/09/2013 removed with ear curette Full Exam - General 1994 Ears/Nose/Throat otoscopic exam Tympanic membrane: a normal exam 09/09/2013 None Full Exam - General 1994 Ears/Nose/Throat otoscopic exam Tympanic membrane: tympanosclerosis 09/09/2013 None Full Exam - General 1994 Ears/Nose/Throat internal nose Overall: bilateral nasal cavities clear 09/09/2013 None Full Exam - General 1994 Ears/Nose/Throat lips/teeth/gingiva Overall: benign lips 09/09/2013 None Full Exam - General 1994 Ears/Nose/Throat oral cavity/pharynx/larynx Overall: oral mucosa clear 09/09/2013 None Full Exam - General 1994 Ears/Nose/Throat oral cavity/pharynx/larynx Overall: mobile tongue benign 09/09/2013 None Full Exam - General 1994 Ears/Nose/Throat oral cavity/pharynx/larynx Oral mucosa: moist 09/09/2013 [...] deformity 09/09/2013 None Full Exam - General 1994 [...] 09/09/2013 None Full Exam - General 1995 Neurologic [...] mastoids 06/17/2013 None Full Exam - General 1994 Ears/Nose/Throat external nose Overall: benign appearance 06/17/2013 None Full Exam - General 1994 Ears/Nose/Throat otoscopic exam External auditory canal: partial cerumen occlusion 06/17/2013 removed with ear curette Full Exam - General 1994 Ears/Nose/Throat otoscopic exam Tympanic membrane: a normal exam 06/17/2013 None Full Exam - General 1994 Ears/Nose/Throat otoscopic exam Tympanic membrane: tympanosclerosis 06/17/2013 [...] sounds 06/17/2013 None Full Exam - General 1994 Abdomen abdominal exam Periumbilical: non-tender to palpation 06/17/2013 umbilical hernia Full Exam - General 1994 Abdomen liver and spleen exam Overall: no hepatosplenomegaly 06/17/2013 None Full Exam - General 1994 Abdomen liver and spleen exam Overall: no stigmata of chronic liver disease 06/17/2013 None Full Exam - General 1994 [...] deformity 06/17/2013 None Full Exam - General 1995 Musculoskeletal digits and nails DIPs: decreased flexion 06/17/2013 None Full Exam - General 1994 Musculoskeletal digits and nails DIPs: decreased extension 06/17/2013 None Full Exam - General 1995 [...] accomodation 05/28/2013 None Full Exam - General 1995 [...] tympanosclerosis 05/28/2013 None Full Exam - General 1995 Ears/Nose/Throat oral cavity/pharynx/larynx Overall: oral mucosa clear 05/28/2013 None Full Exam - General 1995 Ears/Nose/Throat oral cavity/pharynx/larynx Overall: mobile tongue benign 05/28/2013 None Full Exam - General 1995 [...] 1994 Abdomen abdominal exam Overall: no tenderness 05/28/2013 None Full Exam - General 1994 Abdomen abdominal exam Overall: normal bowel sounds 05/28/2013 None Full Exam - General 1995 [...] benign 05/28/2013 None Full Exam - General 1995 Lymphatic neck nodes Overall: posterior cervical chain benign 05/28/2013 None Full Exam - General 1995 Musculoskeletal [...] nourished 03/12/2013 None Full Exam - General 1994 Eyes conjunctiva /eyelids Overall: conjunctiva clear 03/12/2013 None Full Exam - General 1994 Eyes conjunctiva /eyelids Overall: cornea clear 03/12/2013 None Full Exam - General 1994 Eyes conjunctiva /eyelids Overall: eyelids normal 03/12/2013 None Full Exam - General 1994 Eyes [...] moist 03/12/2013 None Full Exam - General 1995 Respiratory auscultation Overall: breath sounds clear bilaterally [...] rhythm 03/12/2013 None Full Exam - General 1994 [...] atraumatic 03/12/2013 None Full Exam - General 1995 [...] intact 03/12/2013 None Full Exam - General 1994 Psychiatric orientation/consciousness Overall: oriented to person, place and time 03/12/2013 None Full Exam - General 1995 Psychiatric mood and affect Overall: normal mood and affect 03/12/2013 None Full Exam - General 1994 Psychiatric mood and affect Mood: happy 03/12/2013 None Full Exam - General 1994 Psychiatric appearance Overall: well-groomed, good eye contact 03/12/2013 None Full Exam - General 1995 Psychiatric speech Overall: normal quality, quantity, rate 03/12/2013 None Full Exam - General 1994 Constitutional general appearance Overall: well developed 01/22/2013 None Full Exam - General 1994 Constitutional general appearance Overall: in no acute distress 01/22/2013 None Full Exam - General 1995 Constitutional general appearance Overall: well nourished 01/22/2013 None Full Exam - General 1994 Eyes conjunctiva /eyelids Overall: conjunctiva clear 01/22/2013 None Full Exam - General 1994 Eyes conjunctiva /eyelids Overall: cornea clear 01/22/2013 None Full Exam - General 1994 Eyes conjunctiva /eyelids Overall: eyelids normal 01/22/2013 [...] lips 01/22/2013 None Full Exam - General 1995 [...] 1994 Musculoskeletal digits and nails DIPs: second 01/22/2013 ulnar deviation of DIP Full Exam - General 1994 Musculoskeletal digits and nails DIPs: nodule 01/22/2013 None Full Exam - General 1994 Musculoskeletal digits and nails DIPs: deformity 01/22/2013 None Full Exam - General 1994 Musculoskeletal digits and nails DIPs: decreased flexion 01/22/2013 None Full Exam - General 1994 Musculoskeletal digits and nails DIPs: decreased extension 01/22/2013 None Full Exam - General 1994 Musculoskeletal digits and nails Deformities/Nodules: heberden's node 01/22/2013 None Full Exam - General 1994 [...] 1994 Ears/Nose/Throat oral cavity/pharynx/larynx Oral mucosa: moist 11/14/2012 [...] 1995 Abdomen abdominal exam Overall: no tenderness 11/14/2012 None Full Exam - General 1994 Abdomen abdominal exam Overall: normal bowel sounds 11/14/2012 None Full Exam - General 1994 Abdomen abdominal exam Periumbilical: non-tender to palpation 11/14/2012 umbilical hernia Full Exam - General 1995 Abdomen liver and spleen exam Overall: no hepatosplenomegaly 11/14/2012 None Full Exam - General 1994 Abdomen liver and spleen exam Overall: no stigmata of chronic liver disease 11/14/2012 None Full Exam - General 1995 Lymphatic neck nodes Overall: anterior cervical chain benign 11/14/2012 None Full Exam - General 1995 Lymphatic [...] happy 11/14/2012 None Full Exam - General 1994 Psychiatric appearance Overall: well-groomed, good eye contact 11/14/2012 None Full Exam - General 1994 Psychiatric speech Overall: normal quality, quantity, rate 11/14/2012 None Full Exam - General 1994 Constitutional general appearance Overall: well developed 09/12/2012 None Full Exam - General 1994 Constitutional general appearance Overall: in no acute distress 09/12/2012 None Full Exam - General 1995 Constitutional general appearance Overall: well nourished 09/12/2012 None Full Exam - General 1994 Eyes conjunctiva /eyelids Overall: conjunctiva clear 09/12/2012 None Full Exam - General 1994 Eyes conjunctiva /eyelids Overall: cornea clear 09/12/2012 [...] tympanosclerosis 09/12/2012 None Full Exam - General 1994 Ears/Nose/Throat internal nose Overall: bilateral nasal cavities clear 09/12/2012 None Full Exam - General 1995 Ears/Nose/Throat lips/teeth/gingiva Overall: benign lips 09/12/2012 None Full Exam - General 1995 [...] bilaterally 09/12/2012 None Full Exam - General 1995 Respiratory respiratory effort/rhythm Overall: no retractions 09/12/2012 [...] 1994 Musculoskeletal digits and nails DIPs: first 09/12/2012 ulnar deviation of the DIP Full Exam - General 1994 Musculoskeletal digits and nails DIPs: second 09/12/2012 ulnar deviation of DIP Full Exam - General 1994 Musculoskeletal digits and nails DIPs: nodule 09/12/2012 [...] atraumatic 09/12/2012 None Full Exam - General 1995 [...] accomodation 05/31/2012 None Full Exam - General 1994 Ears/Nose/Throat external ear Overall: normal appearance 05/31/2012 None Full Exam - General 1994 Ears/Nose/Throat external ear Overall: normal mastoids 05/31/2012 None Full Exam - General 1995 Ears/Nose/Throat external nose Overall: benign appearance 05/31/2012 None Full Exam - General 1994 Ears/Nose/Throat otoscopic exam External auditory canal: partial cerumen occlusion 05/31/2012 removed with ear curette Full Exam - General 1994 Ears/Nose/Throat otoscopic exam Tympanic membrane: a normal exam 05/31/2012 None Full Exam - General 1994 Ears/Nose/Throat otoscopic exam Tympanic membrane: tympanosclerosis 05/31/2012 [...] node 05/31/2012 None Full Exam - General 1994 Musculoskeletal lower extremity Palpation - knee: crepitus 05/31/2012 None Full Exam - General 1994 Musculoskeletal spine, ribs and pelvis Posture: kyphosis 05/31/2012 very mild kyphosis Full Exam - General 1994 Musculoskeletal head and neck Overall: head atraumatic 05/31/2012 None Full Exam - General 1994 Musculoskeletal head and neck Overall: cervical spine benign 05/31/2012 None Full Exam - General 1994 Neurologic deep tendon reflexes Overall: deep tendon reflexes intact 05/31/2012 None Full Exam - General 1994 Neurologic gait Overall: no ataxia, no unsteadiness 05/31/2012 None Full Exam - General 1994 Neurologic [...] tympanosclerosis 05/01/2012 None Full Exam - General 1994 [...] disease 05/01/2012 None Full Exam - General 1994 Lymphatic neck nodes Overall: anterior cervical chain benign 05/01/2012 None Full Exam - General 1994 Lymphatic neck nodes Overall: posterior cervical chain benign 05/01/2012 None Full Exam - General 1994 Musculoskeletal spine, ribs and pelvis Posture: kyphosis 05/01/2012 very mild kyphosis Full Exam - General 1995 Musculoskeletal head and neck Overall: head atraumatic 05/01/2012 None Full Exam - General 1994 Musculoskeletal head and neck Overall: cervical spine benign 05/01/2012 None Full Exam - General 1995 Neurologic deep tendon reflexes Overall: deep tendon reflexes intact 05/01/2012 None Full Exam - General 1995 Neurologic gait Overall: no ataxia, no unsteadiness 05/01/2012 None Full Exam - General 1994 Neurologic cranial nerves Overall: crainial nerves 2 - 12 grossly intact 05/01/2012 None Full Exam - General 1994 Psychiatric orientation/consciousness Overall: oriented to person, place and time 05/01/2012 None Full Exam - General 1995 Psychiatric [...] developed 03/22/2012 None Full Exam - General 1995 Constitutional general appearance Overall: in no acute distress 03/22/2012 None Full Exam - General 1995 Constitutional general appearance Overall: well nourished 03/22/2012 [...] appearance 03/22/2012 None Full Exam - General 1994 Ears/Nose/Throat otoscopic exam External auditory canal: partial cerumen occlusion 03/22/2012 removed with ear curette Full Exam - General 1994 Ears/Nose/Throat otoscopic exam Tympanic membrane: a normal exam 03/22/2012 None Full Exam - General 1994 Ears/Nose/Throat otoscopic exam Tympanic membrane: tympanosclerosis 03/22/2012 None Full Exam - General 1994 [...] 1994 Abdomen abdominal exam Overall: no tenderness 03/22/2012 None Full Exam - General 1994 Abdomen abdominal exam Overall: normal bowel sounds 03/22/2012 None Full Exam - General 1994 Abdomen abdominal exam Periumbilical: non-tender to palpation 03/22/2012 umbilical hernia Full Exam - General 1994 Abdomen liver and spleen exam Overall: no hepatosplenomegaly 03/22/2012 None Full Exam - General 1995 Abdomen liver and spleen exam Overall: no stigmata of chronic liver disease 03/22/2012 None Full Exam - General 1995 Cardiovascular inspection of carotid pulses Carotid pulse: [...] nodule 03/22/2012 None Full Exam - General 1995 Musculoskeletal digits and nails DIPs: deformity 03/22/2012 None Full Exam - General 1995 Musculoskeletal digits and nails DIPs: decreased flexion 03/22/2012 None Full Exam - General 1994 Musculoskeletal digits and nails DIPs: decreased extension 03/22/2012 None Full Exam - General 1995 [...] time 03/22/2012 None Full Exam - General 1994 Psychiatric mood and affect Overall: normal mood and affect 03/22/2012 None Full Exam - General 1994 Psychiatric mood and affect Mood: happy 03/22/2012 None Full Exam - General 1994 Psychiatric appearance Overall: well-groomed, good eye contact 03/22/2012 None Full Exam - General 1995 Psychiatric speech Overall: normal quality, quantity, rate 03/22/2012 None Full Exam - General 1994 Ears/Nose/Throat oral cavity/pharynx/larynx Oral mucosa: dry 03/22/2012 increased moisture than noted on previous exam Full Exam - General 1995 Psychiatric mood and affect Mood: happy 02/20/2012 None Full Exam - General 1994 Psychiatric mood and affect Overall: normal mood and affect 02/20/2012 None Full Exam - General 1995 Psychiatric appearance Overall: well-groomed, good eye contact 02/20/2012 None Full Exam - General 1995 Psychiatric [...] exam 02/20/2012 None Full Exam - General 1995 Musculoskeletal digits and nails DIPs: first 02/20/2012 ulnar deviation of the DIP Full Exam - General 1995 Musculoskeletal digits and nails DIPs: second 02/20/2012 ulnar deviation of DIP Full Exam - General 1995 Musculoskeletal digits and nails DIPs: nodule 02/20/2012 [...] Procedure Codes Date THER/PROPH/DIAG INJ SC/IM CPT-4: 29450 06/05/2014 TRIAMCINOLONE ACET INJ NOS CPT-4: J3301 06/05/2014 ROCEPHIN, PER 250 MG CPT-4: J0696 06/05/2014 THER/PROPH/DIAG INJ SC/IM CPT-4: 76823 02/27/2014 TRIAMCINOLONE ACET INJ NOS CPT-4: J3301 02/27/2014 ROUTINE VENIPUNCTURE CPT-4: 20935 12/31/2013 02602 EST. PATIENT, LEVEL IV CPT-4: 99560 09/09/2013 ROUTINE VENIPUNCTURE CPT-4: 62220 09/09/2013 PRESCRIP TRANSMIT VIA ERX SY CPT-4: G8553 09/09/2013 PRESCRIP TRANSMIT VIA ERX SY CPT-4: G8553 06/17/2013 TRIAMCINOLONE ACET INJ NOS CPT-4: J3301 05/28/2013 ROCEPHIN, PER 250 MG CPT-4: J0696 05/28/2013 PRESCRIP TRANSMIT VIA ERX SY CPT-4: G8553 05/28/2013 ROUTINE VENIPUNCTURE CPT-4: 82579 03/12/2013 PRESCRIP TRANSMIT VIA ERX SY CPT-4: G8553 01/22/2013 PRESCRIP TRANSMIT VIA ERX SY CPT-4: G8553 09/12/2012 PRESCRIP TRANSMIT VIA ERX SY CPT-4: G8553 05/31/2012 ROCEPHIN, PER 250 MG CPT-4: J0696 05/01/2012 THER/PROPH/DIAG INJ SC/IM CPT-4: 65826 05/01/2012 TRIAMCINOLONE ACET INJ NOS CPT-4: J3301 [...] Code : 8480-6 BMI: 27.6 Code : 72960-6 Heart Rate 1 : 58 bpm Height: 5'1" SpO2: 95% Weight: 146 lbs 10/03/2017 Blood Pressure 1: 134/70 Code : 8480-6 BMI: 28.0 Code : 59814-1 Heart Rate 1 : 53 bpm Height: 5'1" SpO2: 96% Weight: 148 lbs 09/19/2017 Blood Pressure 1: 132/64 Code : 8480-6 BMI: 28.0 Code : 46474-3 Heart Rate 1 : 53 bpm Height: 5'1" SpO2: 97% Weight: 148 lbs 07/06/2017 Blood Pressure 1: 150/74 Code : 8480-6 BMI: 28.0 Code : 28178-6 Heart Rate 1 : 60 bpm Height: 5'1" SpO2: 94% Weight: 148 lbs 04/04/2017 Blood Pressure 1: 124/66 Code : 8480-6 BMI: 27.0 Code : 24884-1 Heart Rate 1 : 60 bpm Height: 5'1" SpO2: 96% Weight: 143 lbs 02/28/2017 Blood Pressure 1: 156/80 Code : 8480-6 Blood Pressure 1: 128/70 Code: 8480-6 BMI: 27.1 Code: 85165-7 Heart Rate 1: 53 bpm Height: 5'1" SpO2: 94% Weight: 143 lbs 8 oz 11/29/2016 Blood Pressure 1: 128/58 Code : 8480-6 BMI: 26.6 Code : 65537-5 Heart Rate 1 : 63 bpm Height: 5'1" SpO2: 97% Weight: 141 lbs 11/02/2016 Blood Pressure 1: 128/76 Code : 8480-6 BMI: 26.1 Code : 93358-2 Heart Rate 1 : 51 bpm Height: 5'1" SpO2: 95% Weight: 138 lbs 08/30/2016 Blood Pressure 1: 132/68 Code : 8480-6 BMI: 25.9 Code : 91312-3 Heart Rate 1 : 54 bpm Height: 5'1" SpO2: 94% Weight: 137 lbs 05/03/2016 Blood Pressure 1: 136/74 Code : 8480-6 BMI: 25.9 Code : 09213-5 Heart Rate 1 : 52 bpm Height: 5'1" SpO2: 96% Weight: 137 lbs 02/02/2016 Blood Pressure 1: 124/58 Code : 8480-6 BMI: 25.1 Code : 30093-9 Heart Rate 1 : 56 bpm Height: 5'1" SpO2: 95% Weight: 133 lbs 12/30/2015 Blood Pressure 1: 146/74 Code : 8480-6 BMI: 25.2 Code : 30701-6 Heart Rate 1 : 57 bpm Height: 5'1" SpO2: 98% Weight: 133 lbs 8 oz 11/03/2015 Blood Pressure 1: 138/80 Code : 8480-6 BMI: 25.1 Code : 57595-0 Heart Rate 1 : 59 bpm Height: 5'1" SpO2: 95% Weight: 133 lbs 09/02/2015 Blood Pressure 1: 130/78 Code : 8480-6 BMI: 25.3 Code : 45790-6 Heart Rate 1 : 53 bpm Height: 5'1" SpO2: 97% Weight: 134 lbs 08/04/2015 Blood Pressure 1: 170/70 Code : 8480-6 Blood Pressure 1: 180/80 Code: 8480-6 BMI: 25.7 Code: 49083-0 Heart Rate 1: 62 bpm Height: 5'1" SpO2: 94% Weight: 136 lbs 05/05/2015 Blood Pressure 1: 138/72 Code : 8480-6 BMI: 25.7 Code : 02762-0 Heart Rate 1 : 60 bpm Height: 5'1" SpO2: 96% Weight: 136 lbs 04/15/2015 Blood Pressure 1: 162/72 Code : 8480-6 BMI: 25.3 Code : 84719-0 Heart Rate 1 : 60 bpm Height: 5'1" SpO2: 96% Weight: 134 lbs 02/03/2015 Blood Pressure 1: 148/80 Code : 8480-6 BMI: 25.1 Code : 30764-0 Heart Rate 1 : 56 bpm Height: 5'1" SpO2: 94% Weight: 133 lbs 12/02/2014 Blood Pressure 1: 140/60 Code : 8480-6 BMI: 24.8 Code : 79863-8 Heart Rate 1 : 55 bpm Height: 5'1" SpO2: 94% Weight: 131 lbs 10/14/2014 Blood Pressure 1: 132/76 Code : 8480-6 BMI: 24.6 Code : 44450-6 Heart Rate 1 : 64 bpm Height: 5'1" Weight: 130 lbs 07/17/2014 Blood Pressure 1: 130/70 Code : 8480-6 BMI: 24.6 Code : 79615-6 Heart Rate 1 : 70 bpm Height: 5'1" Weight: 130 lbs 06/05/2014 Blood Pressure 1: 116/68 Code : 8480-6 BMI: 25.7 Code : 80806-5 Heart Rate 1 : 60 bpm Height: 5'1" Weight: 136 lbs 05/08/2014 Blood Pressure 1: 152/60 Code : 8480-6 BMI: 25.9 Code : 17709-5 Heart Rate 1 : 56 bpm Height: 5'1" Weight: 137 lbs 04/17/2014 Blood Pressure 1: 150/60 Code : 8480-6 BMI: 25.7 Code : 03800-2 Heart Rate 1 : 80 bpm Height: 5'1" Weight: 136 lbs 02/27/2014 Blood Pressure 1: 132/76 Code : 8480-6 BMI: 26.3 Code : 78203-7 Heart Rate 1 : 74 bpm Height: 5'1" SpO2: 97% Weight: 139 lbs 12/31/2013 Blood Pressure 1: 180/60 Code : 8480-6 BMI: 26.1 Code : 13452-7 Heart Rate 1 : 56 bpm Height: 5'1" Weight: 138 lbs 12/09/2013 Blood Pressure 1: 130/65 Code : 8480-6 BMI: 27.2 Code : 83020-0 Heart Rate 1 : 56 bpm Height: 5'1" Weight: 144 lbs 09/09/2013 Blood Pressure 1: 146/60 Code : 8480-6 BMI: 26.8 Code : 24343-4 Heart Rate 1 : 60 bpm Height: 5'1" Weight: 142 lbs 06/17/2013 Blood Pressure 1: 134/78 Code : 8480-6 BMI: 27.4 Code : 50463-7 Heart Rate 1 : 60 bpm Height: 5'1" Weight: 145 lbs 05/28/2013 Blood Pressure 1: 164/64 Code : 8480-6 BMI: 27.2 Code : 26228-8 Heart Rate 1 : 56 bpm Height: 5'1" Temperature: 36.7 (C) / 98.0 (F) Weight: 144 lbs 03/12/2013 Blood Pressure 1: 118/60 Code : 8480-6 BMI: 29.1 Code : 34072-1 Heart Rate 1 : 64 bpm Height: 5'1" Weight: 154 lbs 01/22/2013 Blood Pressure 1: 142/68 Code : 8480-6 Heart Rate 1: 68 bpm Weight: 151 lbs 11/14/2012 Blood Pressure 1: 126/78 Code : 8480-6 BMI: 28.5 Code : 32671-3 Heart Rate 1 : 64 bpm Height: 5'1" Weight: 151 lbs 09/12/2012 Blood Pressure 1: 166/90 Code : 8480-6 BMI: 28.5 Code : 07645-5 Heart Rate 1 : 60 bpm Height: [...] Code : 8480-6 BMI: 32.3 Code : 98177-2 Height: 5'1" SpO2: 93% Weight: 171 lbs [...] Present Encounters Encounter Performer Location Codes Date ( [id number] EST. PATIENT, LEVEL III Diagnosis: Essential (primary) hypertension[ICD10: I10] Diagnosis: Generalized anxiety disorder[ICD10: F41.1] Martha Hou MD, [facility] CPT-4: 50927 03/29/2018 ([id number]) 07084 EST. PATIENT, LEVEL IV Diagnosis: Atrophy of thyroid (acquired)[ICD10: E03.4] Diagnosis: Essential (primary) hypertension[ICD10: I10] Diagnosis: Generalized anxiety disorder[ICD10: F41.1] Martha Hou MD, [facility] CPT-4: 28820 03/01/2018 ([id number]) 46253 EST. PATIENT, LEVEL IV Diagnosis: Atrophy of thyroid (acquired)[ICD10: E03.4] Diagnosis: Essential (primary) hypertension[ICD10: I10] Diagnosis: Generalized anxiety disorder[ICD10: F41.1] Martha Hou MD, [facility] CPT-4: 74461 02/13/2018 ([id number]) 71390 EST. PATIENT, LEVEL IV Diagnosis: Atrophy of thyroid (acquired)[ICD10: E03.4] Diagnosis: Essential (primary) hypertension[ICD10: I10] Diagnosis: Generalized anxiety disorder[ICD10: F41.1] Martha Hou MD, [facility] CPT-4: 45151 01/15/2018 ([id number]) 52575 EST. PATIENT, LEVEL IV Diagnosis: Atrophy of thyroid (acquired)[ICD10: E03.4] Diagnosis: Mixed hyperlipidemia[ICD10: E78.2] Diagnosis: Essential (primary) hypertension[ICD10: I10] Martha Hou MD, [facility] CPT-4: 68090 10/03/2017 34014 EST. PATIENT, LEVEL III Diagnosis: Other dysphagia[ICD10: R13.19] Britta Hou MD [facility] CPT-4 : 14723 09/19/2017 ([id number]) 69644 EST. PATIENT, LEVEL IV Diagnosis: Essential (primary) hypertension[ICD10: I10] Diagnosis: Atrophy of thyroid (acquired)[ICD10: E03.4] Diagnosis: Glossodynia[ICD10: K14.6] Martha Hou MD [facility] CPT-4: 86823 07/06/2017 ([id number]) 66992 EST. PATIENT, LEVEL III Diagnosis: Diseases of lips[ICD10: K13.0] Diagnosis: Disturbances of salivary secretion[ICD10: K11.7] Martha Hou MD [facility] CPT-4: 85450 04/04/2017 ([id number]) 03223 EST. PATIENT, LEVEL IV Diagnosis: Atrophy of thyroid (acquired)[ICD10: E03.4] Diagnosis: Essential (primary) hypertension[ICD10: I10] Diagnosis: Diseases of lips[ICD10: K13.0] Martha Hou MD, [facility] CPT- 4: 44510 02/28/2017 ([id number]) 87598 EST. PATIENT, LEVEL III Diagnosis: Essential (primary) hypertension[ICD10: I10] Martha Hou MD [facility] CPT-4: 92585 11/29/2016 ([id number]) 14153 EST. 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 PATIENT, LEVEL IV Diagnosis: Atrophy of thyroid (acquired)[ICD10: E03.4] Diagnosis: Generalized anxiety disorder[ICD10: F41.1] Diagnosis: Essential (primary) hypertension[ICD10: I10] Martha Hou MD [facility] CPT-4: 78261 08/30/2016 ([id number]) 64541 EST. PATIENT, LEVEL IV Diagnosis: Atrophy of thyroid (acquired)[ICD10: E03.4] Diagnosis: Mixed hyperlipidemia[ICD10: E78.2] Diagnosis: Generalized anxiety disorder[ICD10: F41.1] Diagnosis: Essential (primary) hypertension[ICD10: I10] Martha Hou MD [facility] CPT-4: 88724 05/03/2016 ([id number]) 34280 EST. PATIENT, LEVEL IV Diagnosis: Essential (primary) hypertension[ICD10: I10] Diagnosis: Hypothyroidism, unspecified[ICD10: E03.9] Diagnosis: Generalized anxiety disorder[ICD10: F41.1] Martha Hou MD [facility] CPT-4: 18359 02/02/2016 ([id number]) 07364 EST. PATIENT, LEVEL IV Diagnosis: Hypothyroidism, unspecified[ICD10: E03.9] Diagnosis: Generalized anxiety disorder[ICD10: F41.1] Diagnosis: Essential (primary) hypertension[ICD10: I10] Martha Hou MD [facility] CPT-4: 92393 12/30/2015 ([id number]) 10590 EST. PATIENT, LEVEL IV Diagnosis: Essential (primary) hypertension[ICD10: I10] Diagnosis: Mixed hyperlipidemia[ICD10: E78.2] Diagnosis: Allergic rhinitis due to pollen[ICD10: J30.1] Diagnosis: Hypothyroidism, unspecified[ICD10: E03.9] Martha Hou MD [facility] CPT-4: 08240 11/03/2015 ([id number]) 25120 EST. PATIENT, LEVEL III Diagnosis: Essential (primary) hypertension[ICD10: I10] Diagnosis: Polyosteoarthritis, unspecified[ICD10: M15.9] Martha Hou MD [facility] CPT-4: 42091 09/02/2015 ([id number]) 20001 EST. PATIENT, LEVEL IV Diagnosis: Essential (primary) hypertension[ICD10: I10] Diagnosis: Hypothyroidism, unspecified[ICD10: E03.9] Diagnosis: Cough[ICD10: R05] Martha Hou MD [facility] CPT-4: 37561 08/04/2015 ([id number]) 50960 EST. PATIENT, LEVEL IV Diagnosis: Polyosteoarthritis, unspecified[ICD10: M15.9] Diagnosis: Essential (primary) hypertension[ICD10: I10] Diagnosis: Anxiety disorder, unspecified[ICD10: F41.9] Martha Hou MD [facility] CPT-4: 40799 05/05/2015 ([id number]) 82144 EST. PATIENT, LEVEL IV Diagnosis: Essential (primary) hypertension[ICD10: I10] Diagnosis: Generalized anxiety disorder[ICD10: F41.1] Diagnosis: Mastodynia[ICD10: N64.4] Martha Hou MD [facility] CPT-4: 04805 04/15/2015 ([id number]) 76621 EST. PATIENT, LEVEL IV Diagnosis: ESSENTIAL HYPERTENSION[ICD9: 401.9] Diagnosis: HYPOTHYROIDISM[ICD9: 244.9] Diagnosis: Alzheimer's dementia[ICD9: 331.0] Martha Hou MD [facility] CPT-4: 26647 02/03/2015 ([id number]) 54500 EST. PATIENT, LEVEL IV Diagnosis: ESSENTIAL HYPERTENSION[ICD9: 401.9] Diagnosis: HYPOTHYROIDISM[ICD9: 244.9] Diagnosis: GENERALIZED ANXIETY DISEASE[ICD9: 300.02] Diagnosis: ALLERGIC RHINITIS[ICD9: 477.9] Diagnosis: HYPERLIPIDEMIA[ICD9: 272.4] Martha Hou MD [facility] CPT- 4: 52719 12/02/2014 ([id number]) 86048 EST. PATIENT, LEVEL IV Diagnosis: ESSENTIAL HYPERTENSION[ICD9: 401.9] Diagnosis: HYPOTHYROIDISM[ICD9: 244.9] Diagnosis: GENERALIZED ANXIETY DISEASE[ICD9: 300.02] Diagnosis: GENERAL OSTEOARTHROSIS[ICD9: 715.00] Diagnosis: Weakness[ICD9: 780.79] Diagnosis: Loose stools[ICD9: 787.7] Martha Hou MD, [facility] CPT-4: 76242 10/14/2014 [id number]) 37256 EST. PATIENT, LEVEL IV Diagnosis: Generalized osteoarthritis[ICD9: 715.00] Diagnosis: Foot pain, left[ICD9: 729.5] Diagnosis: Weakness[ICD9: 780.79] Diagnosis: Shoulder pain[ICD9: 719.41] Martha Hou MD [facility] CPT- 4: 16181 07/17/2014 ([id number]) 75359 EST. PATIENT, LEVEL IV Diagnosis: ESSENTIAL HYPERTENSION[ICD9: 401.9] Diagnosis: HYPOTHYROIDISM[ICD9: 244.9] Diagnosis: ALLERGIC RHINITIS[ICD9: 477.9] Diagnosis: ACUTE BRONCHITIS[ICD9: 466.0] Martha Hou MD, [facility] CPT- 4: 96316 06/05/2014 ([id number]) 54022 EST. PATIENT, LEVEL III Diagnosis: ACUTE SINUSITIS[ICD9: 461.9] Diagnosis: ALLERGIC RHINITIS[ICD9: 477.9] Diagnosis: Rash[ICD9: 782.1] Martha Hou MD, [facility] CPT-4: 66000 05/08/2014 ([id number]) 96860 EST. PATIENT, LEVEL III Diagnosis: Arm pain[ICD9: 729.5] Diagnosis: Weakness[ICD9: 780.79] Diagnosis: Open wound of arm[ICD9: 884.0] Martha Hou MD, [facility] CPT- 4: 22488 04/17/2014 ([id number]) 43345 EST. PATIENT, LEVEL IV Diagnosis: Weight loss[ICD9: 783.21] Diagnosis: ESSENTIAL HYPERTENSION[ICD9: 401.9] Diagnosis: Alzheimer's dementia[ICD9: 331.0] Diagnosis: ALLERGIC RHINITIS[ICD9: 477.9] Karen Hou MD, [facility] CPT-4: 66527 02/27/2014 ([id number]) 40106 EST. PATIENT, LEVEL IV Diagnosis: HYPOTHYROIDISM[ICD9: 244.9] Diagnosis: Weight loss[ICD9: 783.21] Diagnosis: ESSENTIAL HYPERTENSION[ICD9: 401.9] Diagnosis: Alzheimer's dementia[ICD9: 331.0] Martha Hou MD, [facility] CPT-4: 23079 12/31/2013 ([id number]) 05225 EST. PATIENT, LEVEL IV Diagnosis: ESSENTIAL HYPERTENSION[SNOMED: 25192283] Diagnosis: GENERAL OSTEOARTHROSIS[ICD9: 715.00] Diagnosis: Foot pain, left[ICD9: 729.5] Diagnosis: Gait instability[ICD9: 781.2] Martha Hou MD, [facility] CPT- 4: 70441 12/09/2013 ([id number]) 38469 EST. PATIENT, LEVEL IV Diagnosis: ESSENTIAL HYPERTENSION[SNOMED: 70837262] Diagnosis: ALLERGIC RHINITIS[ICD9: 477.9] Diagnosis: Oral dryness[ICD9: 527.7] Diagnosis: Nose irritation[ICD9: 478.19] Diagnosis: Rash[ICD9: 782.1] Martha Hou MD, [facility] CPT-4: 83522 06/17/2013 ([id number]) 11360 EST. PATIENT, LEVEL III Diagnosis: ACUTE SINUSITIS[ICD9: 461.9] Diagnosis: ALLERGIC RHINITIS[ICD9: 477.9] Karen Hou MD, [facility] CPT-4: 34576 05/28/2013 ([id number]) 73077 EST. PATIENT, LEVEL IV Diagnosis: ESSENTIAL HYPERTENSION[SNOMED: 16564434] Diagnosis: AFTRCE TRAUM FX BONE NEC[ICD9: V54.19] Diagnosis: HYPOTHYROIDISM[ICD9: 244.9] Martha Hou MD, [facility] CPT- 4: 74035 03/12/2013 ([id number]) 68088 EST. PATIENT, LEVEL IV Diagnosis: Disp fx of fifth metatarsal bone of left foot with delayed healing[ ICD9: V54.19] Diagnosis: ESSENTIAL HYPERTENSION[SNOMED: 23574040] Diagnosis: Osteoporosis[ICD9: 733.00] Martha Hou MD, [facility] CPT- 4: 76617 01/22/2013 ([id number]) 34125 EST. PATIENT, LEVEL IV Diagnosis: ESSENTIAL HYPERTENSION[SNOMED: 59561581] Diagnosis: GENERALIZED ANXIETY DISEASE[ICD9: 300.02] Diagnosis: Allergic rhinitis[ICD9: 477.9] Diagnosis: GENERAL OSTEOARTHROSIS[ICD9: 715.00] Martha Hou MD, [facility] CPT-4: 57841 11/14/2012 ([id number]) 78503 EST. PATIENT, LEVEL IV Diagnosis: ESSENTIAL HYPERTENSION[SNOMED: 04529620] Diagnosis: GENERALIZED ANXIETY DISEASE[ICD9: 300.02] Diagnosis: Allergic rhinitis[ICD9: 477.9] Diagnosis: GENERAL OSTEOARTHROSIS[ICD9: 715.00] Martha Hou MD, [facility] CPT-4: 21449 09/12/2012 ([id number]) 22787 EST. PATIENT, LEVEL IV Diagnosis: Oral candidiasis[ICD9: 112.0] Diagnosis: ESSENTIAL HYPERTENSION[SNOMED: 12007763] Diagnosis: INSOMNIA NOS[ICD9: 780.52] Martha Hou MD, [facility] CPT- 4: 73317 05/31/2012 ([id number]) 83448 EST. PATIENT, LEVEL III Diagnosis: Maxillary sinusitis, acute[ICD9: 461.0] Diagnosis: Cough[ICD9: 786.2] [facility] CPT-4: 72803 05/01/[id number]) 32567 EST. PATIENT, LEVEL IV Diagnosis: GENERAL OSTEOARTHROSIS[ICD9: 715.00] Diagnosis: GENERALIZED ANXIETY DISEASE[ICD9: 300.02] Diagnosis: Insomnia[ICD9: 780.52] [facility] CPT-4: 53868 03/22/2012 OFFICE/OUTPATIENT VISIT NEW Diagnosis: ESSENTIAL HYPERTENSION[SNOMED: 78194848] Diagnosis: DEPRESSIVE DISORDER NEC[ICD9: 311] Diagnosis: GENERALIZED ANXIETY DISEASE[ICD9: 300.02] Diagnosis: Mouth dryness[ICD9: 527.7] Diagnosis: Generalized osteoarthritis[ICD9: 715.00] Diagnosis: HYPOTHYROIDISM[ICD9: 244.9] [facility] CPT- 4: 51599 02/20/2012 Plan of Care Planned Activity Notes Codes Status Date Patient Education: Patient Medication Summary Completed 04/11/2018 [...] of ativan. 03/29/2018 Appointment: Martha Hou WPtel: [address] [place], [place] [id number] (15 min) Moderate 03/29/2018 Patient Education: Patient [...] at home. 03/01/2018 Appointment: Martha Hou WPtel: [phone] [facility] [place] (15 min) Moderate 03/01/2018 Patient Education: Patient Medication Summary Completed 03/01/2018 [phone] [place] (15 min) Moderate 02/26/2018 Appointment: [phone] [place] (15 min) Moderate 02/22/2018 Visit Plan: Hypothyroidism [...] facility. 02/13/2018 Appointment: [phone] [place] (15 min) Moderate 02/13/2018 Patient Education: Patient [...] with depakote 01/15/2018 Appointment: Martha Hou WPtel: [phone] [facility] [place] (15 min) Moderate 01/15/2018 Appointment: Martha Hou WPtel: [phone] [facility] [place] (15 min) Moderate 01/15/2018 Patient Education: Patient [...] swallow study 09/19/2017 [phone] ([facility] min) Complex 09/19/2017 Patient Education: Patient [...] magic mouthwash. 07/06/2017 Appointment: Martha Hou WPtel: [facility]3 [facility] (15 min) Moderate 07/06/2017 Patient Education: Patient Medication Summary Completed 07/06/2017 Visit Plan: Lip lesion - resolved - recommended patient to use the sensodyne, call if not improving. 04/04/2017 Appointment: Martha Hou WPtel: [facility]3 [facility] (15 min) Moderate 04/04/2017 Patient Education: Patient Medication Summary Completed 04/04/2017 Appointment: Martha Hou WPtel: [facility]6 [facility] (15 min) Moderate 03/28/2017 Visit Plan: Hypertension [...] control. 02/28/2017 Appointment: Martha Hou WPtel: [phone] [facility] (15 min) Moderate 02/28/2017 Patient Education: Patient Medication Summary Completed 02/28/2017 Appointment: [phone] (15 min) Moderate 12/27/2016 Visit Plan: Hypertension - well controlled - continue with current medications, continue with no added salt diet. Pt has been encouraged to exercise daily. The pt has been advised to call the office if there are any acute concerns about change in blood pressure readings at home. 11/29/2016 Appointment: Martha Hou WPtel: [phone] [facility] (15 min) Moderate 11/29/2016 Patient Education: Patient [...] 75mg daily. 11/02/2016 Appointment: Martha Hou WPtel: [facility]5 [facility] (15 min) Moderate 11/02/2016 Patient Education: Patient Medication Summary Completed 11/02/2016 Appointment: Martha Hou WPtel: [facility]5 [facility] (15 min) Moderate 10/27/2016 Visit Plan: Hypertension [...] on previous levels of control. 08/30/2016 Appointment: Mratha Hou WPtel: [phone] [facility] (15 min) Moderate 08/30/2016 Patient Education: Patient [...] nasal spray 05/03/2016 Appointment: [phone] [place] (15 min) Moderate 05/03/2016 Patient Education: Patient Medication Summary Completed 05/03/2016 Appointment: [facility]el[phone] [place] (15 min) Moderate 04/27/2016 Visit Plan: Hypertension [...] spray. 11/03/2015 Appointment: Martha Hou WPtel: [phone] [facility] (15 min) Moderate 11/03/2015 Patient Education: Patient [...] pain symptoms. 09/02/2015 Appointment: [phone] (15 min) Moderate 09/02/2015 Patient Education: Patient [...] previous levels of control. 08/04/2015 Appointment: Martha Houl[facility] (15 min) Moderate 08/04/2015 Patient Education: [...] medications. 05/05/2015 Appointment: [facility]el[phone] (15 min) Moderate 05/05/2015 Patient Education: [...] improved symptoms. 02/03/2015 Appointment: Martha Hou WPtel: [facility] (15 min) Moderate 02/03/2015 Patient Education: Patient [...] allergy spray. 12/02/2014 Appointment: [facility]el[phone] Follow up 12/02/2014 Patient Education: Patient [...] encouraged to move to assisted living in [place] to be closer to family. 10/14/2014 Appointment: [facility]el[phone] Follow up 10/14/2014 Patient Education: Patient [...] for pt. 07/17/2014 Appointment: Martha Hou WPtel: [facility] Follow up 07/17/2014 Patient Education: Patient [...] allergy spray. 06/05/2014 Appointment: Martha Hou WPtel: [address] [place] [address] Follow up 06/05/2014 Patient Education: Patient Medication [...] pustular drainage, or any other acute concerns. Janie on elbow. 04/17/2014 Appointment: Martha [facility]Ptel[phone] Follow up 04/17/2014 Patient Education: Patient Medication Summary Completed 04/17/2014 Visit Plan: Weight degc-zangcv-irhfnhx actually gained 1 lb. No changes at [...] Hypertension Completed 02/27/2014 Appointment: Martha [facility]Ptel[phone] Follow up 02/11/2014 Appointment: [facility]Ptel[phone] Follow up 01/02/2014 Visit Plan: Hypothyroidism [...] namenda daily. 12/31/2013 Appointment: Martha Hou WPtel: [facility]5 [facility] Follow up 12/31/2013 Patient Education: Patient Medication [...] wide toebox. 12/09/2013 Appointment: Martha Hou WPtel: [facility]5 [place] [phone] Follow up 12/09/2013 Patient Education: Patient Medication [...] as well. 09/09/2013 Appointment: Martha Hou WPtel: [facility]5 [facility] [place] Follow up 09/09/2013 Patient Education: Patient Medication [...] patient. 06/17/2013 Appointment: [facility]Ptel[phone] Follow [facility] 06/17/2013 Patient Education: Patient Medication Summary Completed 06/17/2013 Patient Education: Hypertension Completed 06/17/2013 Visit Plan: Sinusitis - Pt has acute infection - pain in face, maxillary region, Pt informed to use decongestant, RX given to patient, sinus rinses also recommended. Call if symptoms do not show improvement. 05/28/2013 Appointment: [phone] [facility] 05/28/2013 Patient Education: Patient Medication Summary Completed [...] of control. 03/12/2013 Appointment: Martha Hou WPtel: [phone] [facility] Follow up 03/12/2013 Patient Education: Patient Medication Summary Completed 03/12/2013 Patient Education: Hypertension Completed 03/12/2013 Appointment: Martha Hou WPtel: [phone] [facility] Follow up 02/19/2013 Visit Plan: Osteopenia/Osteoporosis - [...] at home. 01/22/2013 Appointment: Martha Hou WPtel: [phone] [facility] Other 01/22/2013 Patient Education: Patient Medication Summary [...] chronic treatment. 11/14/2012 Appointment: [facility]Ptel[phone] Follow up 11/14/2012 Patient Education: Patient Medication [...] chronic treatment. 09/12/2012 Appointment: Martha Hou WPtel: [facility]5 [facility] Follow up 09/12/2012 Patient Education: Patient Medication Summary Completed 09/12/2012 Patient Education: Hypertension Completed 09/12/2012 Appointment: Martha Hou WPtel: [facility]5 [facility] Follow up 08/28/2012 Appointment: Martha Hou WPtel: [facility] Follow up 08/23/2012 Visit Plan: Hypertension - [...] improved. 05/31/2012 Appointment: Martha Hou WPtel: [phone] [facility] [place] Follow up 05/31/2012 Patient Education: Patient Medication [...] patient's pharmacy. 05/01/2012 Appointment: Martha Hou WPtel: [phone] [facility] [place] Other 05/01/2012 Patient Education: Patient Medication Summary [...] the doxepin. 03/22/2012 Appointment: Martha Hou WPtel: [facility]9 [facility] [place] Follow up 03/22/2012 Patient Education: Patient Medication [...] HOME SAFETY EVAL WILL BE GIVEN TO [facility]. Hypothryoidism - need to check labs - [...] [facility] DR[facility] TSANG IN [place]. 02/20/2012 Appointment: Martha Hou WPtel: [facility] [facility] Patient 02/20/2012 Patient Education: Patient Medication Summary Completed 02/20/2012 Patient Education: High Blood Pressure: Essential Hypertension Completed 2011 Instructions Comment . Hypothyroidism - pt with chronic hypothyroidism, [...] with mood disorder - continue with depakote . Hypertension - well controlled - continue with current medications, continue with no added salt diet. Pt has been encouraged to exercise daily. The pt has been advised to call the office if there are any acute concerns about change in blood pressure readings at home. decrease power pudding (prune juice, bran flakes, [...] encouraged to move to assisted living in [place] to be closer to family. . Hypertension [...] based on previous levels of control. . OA - change voltaren gel to [...] situational exposure. No change in current medications. ZADITOR is the over the counter medication [...] allergies - continue with nasal spray . Hypertension - well controlled [...] daily - start on plavix 75mg daily. CALL ME ON MONDAY IF YOUR ALLERGIES AREN'T BETTER AND WE WILL CALL YOU IN AN ANTIBIOTIC FOR A SINUS INFECTION. . Weight gkcq-bakjna-cuikuma actually gained 1 lb. No changes at [...] the office for acute uncontrolled symtpoms . Dysphagia - resolved - pt has [...] get pt on lower dose of ativan. use the medihoney on her elbow and change it daily - until the wound is healed. . Arm Pain - xray of arm. Wound Instructions - Pt was instructed to keep the wound clean, wash with antibacterial soap, use triple antibiotic ointment, call if redness, pustular drainage, or any other acute concerns. Medihoney on elbow. . Hypothyroidism - pt with chronic hypothyroidism, [...] communication with the Assisted Living facility. use vicks and vaseline on q tip [...] of nasal gel given to patient. . Sinusitis - Pt has acute infection [...] any worse. RX sent to patient's pharmacy. tiger balm- to right neck and upper [...] also ordered physical therapy for pt. . Arthritis- uncontrolled symptoms- recommend pt to [...] - has improved off of the doxepin. Nasal gel x 1 week, if not [...] stable, continue with current chronic treatment. . Hypertension - well controlled - continue [...] assure normal liver response to medications. . Hypertension - well controlled - [...] HOME SAFETY EVAL WILL BE GIVEN TO [facility]. Hypothryoidism - need to check labs - [...] [facility] TSANG IN [place]. . Hypertension - well controlled - continue [...] has noticed improved symptoms. . Hypertension - well controlled - [...] previous levels of control. . Hypertension - uncontrolled - the patient's [...] tylenol for break through pain symptoms. . Mild Cognitive Impairment - discussed with [...] sure that she has a wide toebox. ZADITOR is the over the counter medication [...] previous levels of control. . Hypertension - uncontrolled - the patient's [...] months based on previous levels of control. Plan: (52769) Pneumococcal Polysaccharide Vaccine, 23- Valent, Ad - [...] her neck and use aspercreme as well. . Lip lesion - resolved - recommended [...]
--- OUTSIDE RECORDS SUMMARY | 2018-05-06 10:48 | XMS REPORT ---
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 Name Role Phone VERO DELACRUZ Unavailable Unavailable PROBLEMS Unknown Problems ALLERGIES No Known Allergies ENCOUNTERS Encounter Location Date Diagnosis [facility] [id number] [place] [address] [id number] Jan, Dental examination Z01.20 [facility] [address] [place] [address] [id number] Apr, Dental examination Z01.20 [facility] [id number] [place] [address] [id number] Mar, Encounter for dental examination Z01.20 [facility] [address] [id number] [place] [address] [id number] Apr, Dental examination Z01.20 [facility] [address] [id number] [place] [address] [id number] Jan, Dental examination Z01.20 [facility] [address] [id number] [place] [address] [id number] Dec, Dental examination Z01.20 [facility] [address] [id number] [place] [address] [id number] October, Dental examination Z01.20 [facility] [address] [id number] [place] [address] [id number] Aug, Encounter for dental examination Z01.20 [facility] [id number] [place] [address] [id number] Jan, Dental examination V72.2 IMMUNIZATIONS No Known Immunizations SOCIAL HISTORY Never Assessed REASON FOR VISIT [facility] PLAN [facility] CARE Activity Details Follow Up prn Reason:RESTORATIVE AT 924 VITAL SIGNS MEDICATIONS Medication Instructions Dosage Frequency Start Date End Date Duration Status Glucosamine Active Escitalopram Oxalate Active Meloxicam 15 MG Orally Once a day 1 tablet 24h Active Zinc Oxide Active Levothyroxine Sodium 100 MCG Orally Once a day 1 tablet 24h Active Spironolactone 25 MG Orally Twice a day 1 tablet 12h Not-Taking Ibuprofen 600 MG Orally Three times a day 1 tablet 8h Not-Taking Plavix Not-Taking Losartan Potassium Active Atorvastatin Calcium 20 MG Orally Once a day 1 tablet 24h Not- Taking Memantine HCl Not-Taking Mobic Not-Taking Exelon Not-Taking lipitor Not-Taking atenolol Active Lipitor 20 MG Orally Once a day 1 tablet 24h Not-Taking Biotene Dry Mouth Not-Taking Lexapro Active Ranitidine Active Acetaminophen 8 Hour Not-Taking Lorazepam Active Mucinex Not-Taking Vitamin D3 Active Aspirin Not-Taking Clopidogrel Bisulfate Active Lactobacillus Active Acidophilus Active Citalopram Hydrobromide Not-Taking Quetiapine Fumarate 25 MG Orally Twice a day 1 tablet 12h Not- Taking Doxepin HCl 75 MG Orally Once a day 1 capsule at bedtime 24h Not- Taking Aldactone Active Montelukast Sodium Not-Taking Fluticasone Propionate (Inhal) 50 MCG/BLIST Inhalation Twice a day 1 puff 12h Active Vitamin A & D Active Lactulose Not-Taking Enalapril-Hydrochlorothiazide 10-25 MG Orally Once a day 1 tablet 24h Not-Taking Celexa Not-Taking Depakote Sprinkles Active Loratadine Active RESULTS No Results PROCEDURES Procedure Date Ordered Result Body Site PROPHYLAXIS - ADULT Feb 20, 2018 TOPICAL FLUORIDE VARNISH Feb 20, 2018 INSTRUCTIONS MEDICATIONS ADMINISTERED No Known Medications MEDICAL (GENERAL) HISTORY Type Description Date Medical History Arthritis Medical History Thyroid problems Medical History Hypertension Medical History memory loss/alziemers Medical History heart failure Medical History glossodynia Medical History vitamin D deficiency Medical History dry mouth Medical History anxiety disorder Medical History anemia
--- OUTSIDE RECORDS SUMMARY | 2018-05-06 10:50 | XMS REPORT | Continuity of Care Document ---
Author Author [facility] Address Unknown Phone Unavailable Allergies Active Description Code Type Severity Reaction Onset Reported/Identified Relationship to Patient Clinical Status Yes NO KNOWN DRUG ALLERGIES NO KNOWN DRUG ALLERG UNKNOWN Yes NO KNOWN DRUG ALLERGIES UNKNOWN NO KNOWN DRUG ALLERG Yes No Known Drug Allergies [id number] Drug Allergy Unknown N/A 03/07/2016 Medications Medication Packaging Start Date Stop Date Route Dosage Sig KETOROLAC VIAL INJ 15 MG/CC (TORADOL VIAL) MG 10/03/2016 10/03/2016 ONCE&1535 ACETAMINOPHEN ORAL TABLET 325mg(Tylenol) MG 10/03/2016 10/10/2016 PRN EVERY 6 Hour POLYETHYLENE GLYCOL POWDER UD PWD 0 (MIRALAX 17GM UNIT DOSE PAKS) gm 10/03/2016 10/13/2016 PRN Q3H ALUM/MAG/SIMETH 30CC LIQ 0 (MYLANTA PLUS) cc 10/03/2016 10/13/2016 PRN Q4H ALPRAZOLAM TAB 0.25 MG (XANAX) MG 10/03/2016 11/02/2016 PRN BID SIMVASTATIN TAB 10 MG (ZOCOR) MG 10/09/2016 QPM&2000 DIVALPROEX SPRINKLE CAP 125 MG (DEPAKOTE SPRINKLE) MG 10/03/2016 10/10/2016 PRN Q6H Memantine oral tablet 10mg (NAMENDA) MG 10/03/2016 10/13/2016 BID&0800,2000 FLUTICASONE NASAL INHALER MDI 50 MCG (FLONASE NOSE SPRAY) PUFF(S) 10/03/2016 11/02/2016 BID&0800,2000 LACTULOSE SYRUP LIQ 20 GM/30CC (CHRONULAC SYRUP) GM 10/03/2016 10/13/2016 BID&0800,2000 MILK OF MAGNESIA LIQ 0 ml 201610/10/2016 PRN BID LORAZEPAM TAB 0.5 MG (ATIVAN) MG 10/09/2016 QHS&2100 MELATONIN TAB 3 MG (MELATONIN) MG 10/03/2016 10/09/2016 QHS&2100 TRAZODONE TAB 50 MG (DESYREL) MG 10/10/2016 PRN QHS ALPRAZOLAM TAB 0.25 MG (XANAX) MG 10/03/2016 11/02/2016 PRN Q8H CALMOSEPTINE OINT TUBE OINT 0 (RISAMINE OINT TUBE) sonali 10/03/2016 10/10/2016 PRN QID LOPERAMIDE CAP 2 MG (IMMODIUM) MG 10/03/2016 10/10/2016 PRN QID SPIRONOLACTONE TAB 25 MG (ALDACTONE) MG 2016 11/02/2016 Daily&0900 ATENOLOL TAB 50 MG (TENORMIN) MG 11/02/2016 Daily&0900 MELOXICAM TAB 7.5 MG (MOBIC) MG 10/201611/02/2016 Daily&0900 NAMENDA XR 28 MG CAPSULE (memantine) oral capsule,sprinkle,ER 24hr CAPSULE 2016 11/02/2016 Daily&0900 CITALOPRAM TAB 20 MG (CELEXA) MG 11/02/2016 Daily&0900 Vitamin D-3 5,000 units oral capsule UNITS 2016 10/10/2016 Daily&0900 VITAMIN D-3 TAB 1000 UNITS (VITAMIN D-3) UNITS 2016 11/02/2016 Daily&0900 BISACODYL SUPPOS SUP 10 MG (DULCOLAX SUPPOS) MG 2016 10/10/2016 PRN Daily LEVOTHYROXINE TAB 125 MCG (SYNTHROID) MCG 2016 11/02/2016 Daily&0900 LACTOBACILLUS BULGARIS TAB 0 (LACTINEX BULGARIS) tab 2016 11/02/2016 QHS&2100 LEVOTHYROXINE TAB 125 MCG (SYNTHROID) MCG 10/05/2016 11/26/2016 Daily&0900 DIVALPROEX SPRINKLE CAP 125 MG (DEPAKOTE SPRINKLE) MG 10/05/2016 10/12/2016 TID&0600,1400,2000 LEVOTHYROXINE TAB 125 MCG (SYNTHROID) MCG 10/06/2016 12/13/2016 Daily&0900 SALINE NASAL MIST LIQ 0 (OCEAN SPRAY) SPRAYS 10/06/2016 10/16/2016 PRN TID CHLORASEPTIC/HALLS FRANCIS/DROP TAB 0 (SORETHROAT RFANCIS/COUGH DROP) LOZENGE 10/08/2016 10/18/2016 PRN Q2H SIMVASTATIN TAB 10 MG (ZOCOR) MG 10/16/2016 QPM&2000 LORAZEPAM TAB 0.5 MG (ATIVAN) MG 10/19/2016 QHS&2100 Rivastigmine TD Patch 24 hour 4.6mg (EXELON) MG 10/11/2016 10/20/2016 Daily&0900 TRAZODONE TAB 50 MG (DESYREL) MG 10/18/2016 PRN QHS DIVALPROEX SPRINKLE CAP 125 MG (DEPAKOTE SPRINKLE) MG 10/12/2016 11/11/2016 TID&0800,1400,2000 ACETAMINOPHEN ORAL TABLET 325mg(Tylenol) MG 01/25/2018 02/24/2018 PRN EVERY 6 Hour ALUM/MAG/SIMETH 30CC LIQ (MYLANTA PLUS) cc 01/25/2018 02/24/2018 PRN Q4H POLYETHYLENE GLYCOL POWDER UD PWD (MIRALAX 17GM UNIT DOSE PAKS) gm 01/25/2018 02/24/2018 PRN Q3H CALMOSEPTINE OINT TUBE (RISAMINE OINT) sonali 01/25/2018 02/24/2018 PRN QID LOPERAMIDE CAP 2 MG (IMMODIUM) MG 01/25/2018 02/24/2018 PRN QID SIMVASTATIN TAB 10 MG (ZOCOR) MG 02/23/2018 QPM&2000 Memantine oral tablet 10mg (NAMENDA) MG 01/25/2018 02/24/2018 BID&0800,2000 FLUTICASONE NASAL INHALER MDI 50 MCG (FLONASE NOSE SPRAY) PUFF(S) 01/25/2018 02/24/2018 BID&0800,2000 LACTULOSE SYRUP LIQ 20 GM/30CC (CHRONULAC SYRUP) GM 01/25/2018 02/24/2018 PRN BID MILK OF MAGNESIA LIQ ml 01/25/2018 02/24/2018 PRN BID LACTOBACILLUS BULGARIS TAB (LACTINEX BULGARIS) tab 01/25/2018 02/23/2018 QHS&2100 RANITIDINE TAB 150 MG (ZANTAC) MG 01/25/2018 02/23/2018 QHS&2100 DIVALPROEX SPRINKLE CAP 125 MG (DEPAKOTE SPRINKLE) MG 01/25/2018 02/23/2018 QHS&2100 MELATONIN TAB 3 MG (MELATONIN) MG 01/25/2018 02/24/2018 PRN QHS Lorazepam oral tablet 0.25mg (Ativan) MG 01/25/2018 02/03/2018 QHS&2100 HALOPERIDOL TAB 5 MG (HALDOL) MG 02/24/2018 PRN Q6H LORAZEPAM TAB 2 MG (ATIVAN) MG 02/24/2018 PRN Q6H HALOPERIDOL VIAL INJ 5 MG/CC (HALDOL 1CC VIAL) MG 01/25/2018 02/24/2018 PRN Q6H LORAZEPAM 1CC VIAL INJ 2 MG/CC (ATIVAN VIAL) MG 01/25/2018 02/24/2018 PRN Q6H DIVALPROEX SPRINKLE CAP 125 MG (DEPAKOTE SPRINKLE) MG 01/26/2018 02/24/2018 QAM&0800 ATENOLOL TAB 50 MG (TENORMIN) MG 02/24/2018 QAM&0800 CITALOPRAM TAB 20 MG (CELEXA) MG 02/24/2018 QAM&0800 VITAMIN D-3 TAB 1000 UNITS (VITAMIN D-3) UNITS 01/26/2018 02/24/2018 QAM&0800 CLOPIDOGREL TAB 75 MG (PLAVIX) MG 01/26/2018 02/24/2018 Daily&0900 LORATADINE TAB 10 MG (CLARITIN) MG 01/26/2018 02/24/2018 Daily&0900 SPIRONOLACTONE TAB 25 MG (ALDACTONE) MG 01/26/2018 02/24/2018 Daily&0900 MELOXICAM TAB 7.5 MG (MOBIC) MG 02/24/2018 Daily&0900 LOSARTAN TAB 25 MG (COZAAR) MG 02/24/2018 Daily&0900 Rivastigmine TD Patch 24 hour 9.5mg (EXELON) MG 01/26/2018 02/24/2018 Daily&0900 BISACODYL SUPPOS 10 MG (DULCOLAX SUPPOS) MG 01/26/2018 02/25/2018 PRN Daily LEVOTHYROXINE TAB 125 MCG (SYNTHROID) MCG 01/26/2018 02/24/2018 Daily&0900 DIVALPROEX SPRINKLE CAP 125 MG (DEPAKOTE SPRINKLE) MG 01/26/2018 02/24/2018 Daily&1200 RISPERIDONE TAB 0.5 MG (RISPERDAL) MG 01/26/2018 02/24/2018 BID&0800,2000 Divalproex 250mg extended release 24 hr (Depakote) MG 01/26/2018 02/24/2018 QHS&2100 MIRTAZAPINE TAB 15 MG (REMERON) MG 01/26/2018 01/28/2018 QHS&2100 RISPERIDONE TAB 1 MG (RISPERDAL) MG 01/29/2018 02/28/2018 BID&0800,2000 DIVALPROEX ER TAB 500 MG (DEPAKOTE ER) MG 01/29/2018 02/27/2018 QHS&2100 MIRTAZAPINE TAB 15 MG (REMERON) MG 01/29/2018 02/27/2018 QHS&2100 LEVOTHYROXINE TAB 125 MCG (SYNTHROID) MCG 01/31/2018 01/31/2018 Q1WK&0900 RISPERIDONE TAB 0.5 MG (RISPERDAL) MG 02/01/2018 02/10/2018 BID&0800,2000 ALBUTEROL SVN 2.5MG/3CC LIQ 2.5 MG (PROVENTIL SHERI 2.5MG/3CC) MG 02/01/2018 02/01/2018 ONCE&0905 NORMAL SALINE 1000CC IV BAG INJ 0.9 % (NS 1000CC IV BAG) ml 02/01/2018 02/03/2018 CONTINUOUSEVERY 0 Hour ALBUTEROL SVN 2.5MG/3CC LIQ 2.5 MG (PROVENTIL SHERI 2.5MG/3CC) MG 02/01/2018 02/08/2018 TID&0800,1400,2000 LORAZEPAM TAB 1 MG (ATIVAN) MG 08/201703/04/2018 PRN Q6H LORAZEPAM 1CC VIAL INJ 2 MG/CC (ATIVAN VIAL) MG 02/02/2018 03/04/2018 PRN Q6H LORAZEPAM 1CC VIAL INJ 2 MG/CC (ATIVAN VIAL) MG 02/03/2018 02/10/2018 PRN Q6H LORAZEPAM TAB 0.5 MG (ATIVAN) MG 02/10/2018 PRN Q6H RISPERIDONE DISSOLVETAB TAB 0.25 MG (RISPERDAL M-TAB) MG 02/03/2018 03/05/2018 BID&0800,2000 LORAZEPAM TAB 0.5 MG (ATIVAN) MG 02/04/2018 PRN ONCE LORAZEPAM TAB 0.5 MG (ATIVAN) MG 02/06/2018 ONCE&1745 LEVOTHYROXINE TAB 125 MCG (SYNTHROID) Dose(s) 02/07/2018 02/21/2018 Q1WK&0900 RISPERIDONE TAB 0.5 MG (RISPERDAL) MG 02/07/2018 03/08/2018 Daily&1200 Problems Date Dx Coded Attending Type Code Diagnosis Diagnosed By 07/23/2009 D 722.4 CERVICAL DISC DEGEN 07/06/2010 D 486 PNEUMONIA, ORGANISM NOS 07/06/2010 D 786.2 COUGH 02/17/2011 D 401.9 HYPERTENSION NOS 03/25/2011 D V76.12 OT SCREEN MAMMOGRAM 06/01/2011 D 244.9 HYPOTHYROIDISM NOS 06/01/2011 D 311 DEPRESSIVE DISORDER NEC 06/01/2011 D 401.9 HYPERTENSION NOS 12/22/2011 D 244.9 HYPOTHYROIDISM NOS 12/22/2011 D 311 DEPRESSIVE DISORDER NEC 12/22/2011 D 401.9 HYPERTENSION NOS 12/22/2011 D 477.9 ALLERGIC RHINITIS NOS 02/22/2012 D 244.9 HYPOTHYROIDISM NOS 02/22/2012 D 298.9 PSYCHOSIS NOS 02/22/2012 D 401.9 HYPERTENSION NOS 02/22/2012 D 715.90 OSTEOARTHROS NOS-UNSPEC 02/22/2012 D 791.9 ABN URINE FINDINGS NEC 02/28/2012 D 298.9 PSYCHOSIS NOS 02/28/2012 D 401.9 HYPERTENSION NOS 02/28/2012 D 785.9 CARDIOVAS SYS SYMP NEC 03/01/2012 D 244.9 HYPOTHYROIDISM NOS 03/01/2012 D 285.9 ANEMIA NOS 09/17/2012 ANTIONETTE HEATON, NATE Garcia 244.9 HYPOTHYROIDISM NOS 09/17/2012 ANTIONETTE HEATON, NATE Garcia 401.9 HYPERTENSION NOS 10/29/2012 TRINH HEATON, MOON Garcia 244.9 HYPOTHYROIDISM NOS 10/29/2012 TRINH HEATON, MOON Garcia 311 DEPRESSIVE DISORDER NEC 10/29/2012 TRINH HEATON, MOON Garcia 401.9 HYPERTENSION NOS 12/12/2012 VANESA DUBON MD 825.25 FX METATARSAL-CLOSED 12/12/2012 VANESA DUBON MD E000.9 EXT CAUSE STATUS NOS 12/12/2012 JAGDISH HEATON, VANESA Garcia E001.0 ACTIV-WALK/AUGUST/HIKE 12/12/2012 VANESA DUBON MD E849.0 ACCIDENT IN HOME 12/12/2012 VANESA DUBON MD E885.9 FALL OTH SLIP-TRIPPING 12/20/2012 NATE HOU MD 244.9 HYPOTHYROIDISM NOS 12/20/2012 NATE HOU MD V67.51 HIGH RISK MEDS/FU EXAM 01/08/2013 NATE HOU MD 825.25 FX METATARSAL-CLOSED 01/08/2013 NATE HOU MD E000.9 EXT CAUSE STATUS NOS 01/08/2013 ANTIONETTE HEATON, NATE Garcia E001.0 ACTIV-WALK/AUGUST/HIKE 01/08/2013 NATE HOU MD E849.0 ACCIDENT IN HOME 01/08/2013 NATE HOU MD E885.9 FALL OTH SLIP-TRIPPING 01/08/2013 NATE HOU MD V54.89 ORTHOPEDIC AFTERCARE NEC 02/26/2013 NATE HOU MD 825.25 FX METATARSAL-CLOSED 02/26/2013 NATE HOU MD E000.9 EXT CAUSE STATUS NOS 02/26/2013 NATE HOU MD E001.0 ACTIV-WALK/AUGUST/HIKE 02/26/2013 NATE HOU MD E849.0 ACCIDENT IN HOME 02/26/2013 NATE HOU MD E885.9 FALL OTH SLIP-TRIPPING 02/26/2013 NATE HOU MD V54.89 ORTHOPEDIC AFTERCARE NEC 03/26/2013 NATE HOU MD 825.25 FX METATARSAL-CLOSED 03/26/2013 NATE HOU MD 959.7 LOWER LEG INJURY NOS 03/26/2013 NATE HOU MD E000.9 EXT CAUSE STATUS NOS 03/26/2013 ANTE HOU MD E001.0 ACTIV-WALK/AUGUST/HIKE 03/26/2013 NATE HOU MD E849.0 ACCIDENT IN HOME 03/26/2013 NATE HOU MD E885.9 FALL OTH SLIP-TRIPPING 04/01/2014 NATE HOU MD 298.9 PSYCHOSIS NOS 04/01/2014 NATE HOU MD 458.9 HYPOTENSION NOS 04/01/2014 NATE HOU MD 791.9 ABN URINE FINDINGS NEC 05/06/2014 KEATON YIP MD 719.41 JOINT PAIN-SHLDER 05/06/2014 KEATON YIP MD E000.9 EXT CAUSE STATUS NOS 05/06/2014 KEATON YIP MD E030 ACTIVITY NOS 05/06/2014 KEATON YIP MD E849.[address] NOS 05/06/2014 KEATON YIP MD E888.9 FALL NOS 05/14/2014 NATE HOU MD 611.71 MASTODYNIA 05/21/2014 ANTIONETTE HEATON, NATE Dennis Ot 715.32 05/21/2014 NATE HOU MD Ot 715.33 05/21/2014 NATE HOU MD Ot 729.5 05/21/2014 NATE HOU MD Ot E000.8 05/21/2014 NATE HOU MD Ot E001.0 05/21/2014 NATE HOU MD Ot E888.9 06/01/2014 KEATON YIP MD 611.71 MASTODYNIA 06/01/2014 KEATON YIP MD 719.41 JOINT PAIN-SHLDER 06/01/2014 KEATON YIP MD E000.9 EXT CAUSE STATUS NOS 06/01/2014 KEATON YIP MD E030 ACTIVITY NOS 06/01/2014 PHI HEATON, KEATON Garcia E849.[address] NOS 06/01/2014 PHI HEATON, KEATON Garcia E888.9 FALL NOS 06/17/2014 ANTIONETTE HEATON, NATE Dennis D 729.5 PAIN IN LIMB 04/24/2015 ANTIONETTE HEATON, NATE Dennis Ot 825.25 04/24/2015 NATE HOU MD Ot E000.8 04/24/2015 NATE HOU MD Ot E849.0 04/24/2015 NATE HOU MD Ot E888.9 04/24/2015 NATE HOU MD Ot V15.51 04/24/2015 NATE HOU MD Ot V67.9 04/24/2015 ANTIONETTE HEATON, NATE Dennis Ot 715.32 04/24/2015 NATE HOU MD Ot 715.33 04/24/2015 NATE HOU MD Ot 729.5 04/24/2015 NATE HOU MD Ot E000.8 04/24/2015 NATE HOU MD Ot E001.0 04/24/2015 NATE HOU MD Ot E888.9 05/15/2015 ANTIONETTE HEATON, NATE Dennis Ot N64.4 05/26/2015 NATE HOU MD Ot N64.4 03/07/2016 JOSÉ HEATON, MICHAEL T Ot L03.113 CELLULITIS OF RIGHT UPPER LIMB 03/07/2016 JOSÉ HEATON, MICHAEL T Ot M19.042 PRIMARY OSTEOARTHRITIS, LEFT HAND 03/07/2016 JOSÉ HEATON, MICHAEL T Ot M79.89 OTHER SPECIFIED SOFT TISSUE DISORDERS 03/07/2016 ANTIONETTE HEATON, NATE Dennis Ot 825.25 FX METATARSAL-CLOSED 03/07/2016 NATE HOU MD Ot E000.8 OTHER EXTERNAL CAUSE STATUS 03/07/2016 NATE HOU MD Ot E849.0 ACCIDENT IN HOME 03/07/2016 NATE HOU MD Ot E888.9 FALL NOS 03/07/2016 NATE HOU MD Ot V15.51 PERSONAL HISTORY OF TRAUMATIC FRACTURE 03/07/2016 NATE HOU MD Ot V67.9 FOLLOW-UP EXAM NOS 03/07/2016 NATE HOU MD Ot 715.32 LOC OSTEOARTH NOS-UP/ARM 03/07/2016 NATE HOU MD Ot 715.33 LOC OSTEOART NOS-FOREARM 03/07/2016 NATE HOU MD Ot 729.5 PAIN IN LIMB 03/07/2016 NATE HOU MD Ot E000.8 OTHER EXTERNAL CAUSE STATUS 03/07/2016 NATE HOU MD Ot E001.0 ACTIVITIES INVOLVING WALKING, MARCHING A 03/07/2016 NATE HOU MD Ot E888.9 FALL NOS 03/07/2016 NATE HOU MD Ot N64.4 MASTODYNIA 03/07/2016 NATE HOU MD Ot 825.25 FX METATARSAL-CLOSED 03/07/2016 NATE HOU MD Ot E000.8 OTHER EXTERNAL CAUSE STATUS 03/07/2016 NATE HOU MD Ot E849.0 ACCIDENT IN HOME 03/07/2016 NATE HOU MD Ot E888.9 FALL NOS 03/07/2016 NATE HOU MD Ot V15.51 PERSONAL HISTORY OF TRAUMATIC FRACTURE 03/07/2016 NATE HOU MD Ot V67.9 FOLLOW-UP EXAM NOS 03/07/2016 NATE HOU MD Ot 715.32 LOC OSTEOARTH NOS-UP/ARM 03/07/2016 NATE HOU MD Ot 715.33 LOC OSTEOART NOS-FOREARM 03/07/2016 NATE HOU MD Ot 729.5 PAIN IN LIMB 03/07/2016 NATE HOU MD Ot E000.8 OTHER EXTERNAL CAUSE STATUS 03/07/2016 NATE HOU MD Ot E001.0 ACTIVITIES INVOLVING WALKING, MARCHING A 03/07/2016 NATE HOU MD Ot E888.9 FALL NOS 03/07/2016 NATE HOU MD Ot N64.4 MASTODYNIA 10/03/2016 AZALIA SPEARS 244.9 10/03/2016 AZALIA SPEARS 268.9 UNSPECIFIED VITAMIN D DEFICIENCY 10/03/2016 AZALIA SPEARS 272.4 10/03/2016 AZALIA SPEARS 285.9 ANEMIA, UNSPECIFIED 10/03/2016 AZALIA SPEARS 290.41 10/03/2016 WHITEAZALIA 401.0 10/03/2016 WHITE, AZALIA Tran 414.01 10/03/2016 WHITE, AZALIA Tran 427.81 10/03/2016 WHITE, AZALIA Tran 714.0 10/03/2016 WHITE, AZALIA Tran 786.2 10/03/2016 AZALIA SPEARS D64.9 ANEMIA, UNSPECIFIED 10/03/2016 AZALIA SPEARS E03.9 HYPOTHYROIDISM, UNSPECIFIED 10/03/2016 AZALIA SPEARS E55.9 VITAMIN D DEFICIENCY, UNSPECIFIED 10/03/2016 AZALIA SPEARS E78.5 HYPERLIPIDEMIA, UNSPECIFIED 10/03/2016 AZALIA SPEARS F01.51 10/03/2016 AZALIA SPERAS I10 ESSENTIAL (PRIMARY) HYPERTENSION 10/03/2016 AZALIA SPEARS I25.10 ATHSCL HEART DISEASE OF [place] CORONARY ARTERY W/O ANG PCTRS 10/03/2016 AZALIA SPEARS M06.9 RHEUMATOID ARTHRITIS, UNSPECIFIED 10/03/2016 AZALIA SPEARS R00.1 10/03/2016 AZALIA SPEARS R05 10/03/2016 AZALIA SPEARS 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, UNCOMPLICATED 10/03/2016 AZALIA SPEARS 300.00 ANXIETY STATE, UNSPECIFIED 10/03/2016 AZALIA SPEARS F03.90 UNSPECIFIED DEMENTIA WITHOUT BEHAVIORAL DISTURBANCE 10/03/2016 AZALIA SPEARS F41.9 ANXIETY DISORDER, UNSPECIFIED 10/25/2016 ANTIONETTE HEATON, NATE Dennis Ot E03.9 HYPOTHYROIDISM, UNSPECIFIED 10/25/2016 ANTIONETTE HEATON, NATE Dennis Ot E78.00 PURE HYPERCHOLESTEROLEMIA, UNSPECIFIED 10/25/2016 ANTIONETTE HEATON, NATE Dennis Ot F02.81 DEMENTIA IN OTH DISEASES CLASSD ELSWHR W 10/25/2016 ANTIONETTE HEATON, NATE Dennis Ot F32.9 MAJOR DEPRESSIVE DISORDER, SINGLE EPISOD 10/25/2016 ANTIONETTE HEATON, NATE Dennis Ot F41.9 ANXIETY DISORDER, UNSPECIFIED 10/25/2016 ANTIONETTE HEATON, NATE Dennis Ot G30.9 ALZHEIMER'S DISEASE, UNSPECIFIED 10/25/2016 ANTIONETTE HEATON, NATE Dennis Ot G81.91 HEMIPLEGIA, UNSPECIFIED AFFECTING RIGHT 10/25/2016 NATE HOU MD Ot I11.0 HYPERTENSIVE HEART DISEASE WITH HEART FA 10/25/2016 ANTIONETTE MD, NATE A Ot I50.9 HEART FAILURE, UNSPECIFIED 10/25/2016 ANTIONETTE HEATON, NATE Dennis Ot I63.9 CEREBRAL INFARCTION, UNSPECIFIED 10/25/2016 NATE HOU MD Ot 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 10/25/2016 NATE HOU MD Ot M06.9 RHEUMATOID ARTHRITIS, UNSPECIFIED 10/25/2016 NATE HOU MD Ot R29.810 FACIAL WEAKNESS 10/25/2016 NATE HOU MD Ot Z66 DO NOT RESUSCITATE 10/25/2016 NATE HOU MD Ot E03.9 HYPOTHYROIDISM, UNSPECIFIED 10/25/2016 ANTIONETTE HEATON, NATE Dennis Ot E78.00 PURE HYPERCHOLESTEROLEMIA, UNSPECIFIED 10/25/2016 NATE HOU MD Ot F02.81 DEMENTIA IN OTH DISEASES CLASSD ELSWHR W 10/25/2016 NATE HOU MD Ot F32.9 MAJOR DEPRESSIVE DISORDER, SINGLE EPISOD 10/25/2016 NATE HOU MD Ot F41.9 ANXIETY DISORDER, UNSPECIFIED 10/25/2016 NATE HOU MD Ot G30.9 ALZHEIMER'S DISEASE, UNSPECIFIED 10/25/2016 NATE HOU MD Ot G45.9 TRANSIENT CEREBRAL ISCHEMIC ATTACK, UNSP 10/25/2016 NATE HOU MD Ot G81.91 HEMIPLEGIA, UNSPECIFIED AFFECTING RIGHT 10/25/2016 NATE HOU MD Ot I11.0 HYPERTENSIVE HEART DISEASE WITH HEART FA 10/25/2016 NAET HOU MD Ot I50.9 HEART FAILURE, UNSPECIFIED 10/25/2016 NATE HOU MD Ot I63.9 CEREBRAL INFARCTION, UNSPECIFIED 10/25/2016 NATE HOU MD Ot 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 10/25/2016 NATE HOU MD Ot L98.9 DISORDER OF THE SKIN AND SUBCUTANEOUS TI 10/25/2016 NATE HOU MD Ot M06.9 RHEUMATOID ARTHRITIS, UNSPECIFIED 10/25/2016 NATE HOU MD Ot R29.810 FACIAL WEAKNESS 10/25/2016 NATE HOU MD Ot Z66 DO NOT RESUSCITATE 02/09/2018 DELTA LOPEZ 244.9 02/09/2018 JESSICA DELTA W 272.4 OTHER AND UNSPECIFIED HYPERLIPIDEMIA 02/09/2018 JESSICA DELTA A 296.34 02/09/2018 JESSICA, DELTA W 297.1 02/09/2018 JESSICA DELTA W 401.0 MALIGNANT ESSENTIAL HYPERTENSION 02/09/2018 JESSICA DELTA W 564.00 CONSTIPATION, UNSPECIFIED 02/09/2018 JESSICA DELTA W 707.8 CHRONIC ULCER OF OTHER SPECIFIED SITES 02/09/2018 JESSICA DELTA W 781.99 OTHER SYMPTOMS INVOLVING NERVOUS AND MUSCULOSKELETAL SYSTEMS 02/09/2018 JESSICA DELTA W E03.9 HYPOTHYROIDISM, UNSPECIFIED 02/09/2018 JESSICA DELTA W E78.5 HYPERLIPIDEMIA, UNSPECIFIED 02/09/2018 JESSICA DELTA W F22 DELUSIONAL DISORDERS 02/09/2018 JESSICA DELTA A F33.3 MAJOR DEPRESSV DISORDER, RECURRENT, SEVERE W PSYCH SYMPTOMS 02/09/2018 JESSICA DELTA W I10 ESSENTIAL (PRIMARY) HYPERTENSION 02/09/2018 JESSICA, DELTA W K59.09 OTHER CONSTIPATION 02/09/2018 JESSICA DELTA W 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 02/09/2018 JESSICA DELTA W R29.6 REPEATED FALLS 02/10/2018 Ot E03.9 HYPOTHYROIDISM, UNSPECIFIED 02/10/2018 Ot E78.00 PURE HYPERCHOLESTEROLEMIA, UNSPECIFIED 02/10/2018 Ot F03.91 UNSPECIFIED DEMENTIA WITH BEHAVIORAL DIS 02/10/2018 Ot F32.9 MAJOR DEPRESSIVE DISORDER, SINGLE EPISOD 02/10/2018 Ot F41.9 ANXIETY DISORDER, UNSPECIFIED 02/10/2018 Ot G30.9 ALZHEIMER'S DISEASE, UNSPECIFIED 02/10/2018 Ot I11.0 HYPERTENSIVE HEART DISEASE WITH HEART FA 02/10/2018 Ot I50.9 HEART FAILURE , UNSPECIFIED 02/10/2018 Ot M54.2 CERVICALGIA 02/10/2018 Ot N28.9 DISORDER OF KIDNEY AND URETER, UNSPECIFI 02/10/2018 Ot R40.2142 COMA SCALE , EYES OPEN, SPONTANEOUS, EMR 02/10/2018 Ot R40.2242 COMA SCALE , BEST VERBAL RESPONSE, CONFUS 02/10/2018 Ot R40.2362 COMA SCALE , BEST MOTOR RESPONSE, OBEYS C 02/10/2018 Ot S50.02XA CONTUSION OF LEFT ELBOW, INITIAL ENCOUNT 02/10/2018 Ot W18.30XA FALL ON SAME LEVEL, UNSPECIFIED, INITIAL 02/10/[address] IN OTH NON-INSTITUTIONAL RESID 02/10/2018 Ot 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 DISEASES CLASSD ELSWHR W 02/21/2018 Ot F32.9 MAJOR DEPRESSIVE DISORDER, SINGLE EPISOD 02/21/2018 Ot F41.9 ANXIETY DISORDER, UNSPECIFIED 02/21/2018 Ot G30.9 ALZHEIMER'S DISEASE, UNSPECIFIED 02/21/2018 Ot I11.0 HYPERTENSIVE HEART DISEASE WITH HEART FA 02/21/2018 Ot I50.9 HEART FAILURE , UNSPECIFIED 02/21/2018 Ot M79.89 OTHER SPECIFIED SOFT TISSUE DISORDERS 02/21/2018 Ot N39.0 URINARY TRACT INFECTION, SITE NOT SPECIF 02/21/2018 Ot R60.0 LOCALIZED EDEMA 02/21/2018 Ot S00.03XA CONTUSION OF SCALP, INITIAL ENCOUNTER 02/21/2018 Ot W18.30XA FALL ON SAME LEVEL, UNSPECIFIED, INITIAL 02/21/[address] 02/21/2018 Ot 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 DISEASES CLASSD ELSWHR W 02/23/2018 Ot F32.9 MAJOR DEPRESSIVE DISORDER, SINGLE EPISOD 02/23/2018 Ot F41.9 ANXIETY DISORDER, UNSPECIFIED 02/23/2018 Ot G30.9 ALZHEIMER'S DISEASE, UNSPECIFIED 02/23/2018 Ot I11.0 HYPERTENSIVE HEART DISEASE WITH HEART FA 02/23/2018 Ot I50.9 HEART FAILURE , UNSPECIFIED 02/23/2018 Ot M79.89 OTHER SPECIFIED SOFT TISSUE DISORDERS 02/23/2018 Ot N39.0 URINARY TRACT INFECTION, SITE NOT SPECIF 02/23/2018 Ot R60.0 LOCALIZED EDEMA 02/23/2018 Ot S00.03XA CONTUSION OF SCALP, INITIAL ENCOUNTER 02/23/2018 Ot W18.30XA FALL ON SAME LEVEL, UNSPECIFIED, INITIAL 02/23/[address] 02/23/2018 Ot Z79.82 [facility] ( CURRENT) USE OF ASPIRIN Procedures Code [place] [address] MRI NECK SPINE W/O DYE TABATHA TSANG MDWALDO C 07/23/2009 19523 ROUTINE VENIPUNCTURE TABATHA TSANG MDWALDO C 07/06/2010 81045 CHEST X-RAY TABATHA TSANG MDWALDO C 07/06/2010 96548 COMPLETE CBC W/AUTO DIFF WBC TABATHA TSANG MDWALDO C 07/06/2010 62199 MYCOPLASMA ANTIBODY TABATHA TSANG MDWALDO C 07/06/2010 26390 ROUTINE VENIPUNCTURE TABATHA TSANG MDWALDO C 02/17/2011 29565 COMPREHEN METABOLIC PANEL TABATHA TSANG MDWALDO C 02/17/2011 52354 COMPLETE CBC W/AUTO DIFF WBC TRINH HEATON MOON C 02/17/2011 83496 COMP SCREEN MAMMOGRAM ADD- ON TRINH HEATON MOON C 03/25/2011 04503 MAMMOGRAM, SCREENING TRINH HEATON MOON C 03/25/2011 06533 ROUTINE VENIPUNCTURE TABATHA TSANG MDWALDO C 06/01/2011 20205 COMPREHEN METABOLIC PANEL TRINH HEATON MOON C 06/01/2011 40463 ASSAY OF TOTAL THYROXINE TABATHA TSANG MDWALDO C 06/01/2011 00851 ASSAY THYROID STIM HORMONE TABATHA TSANG MDWALDO C 06/01/2011 37872 COMPLETE CBC W/AUTO DIFF WBC TABATHA TSANG MDWALDO C 06/01/2011 04972 ROUTINE VENIPUNCTURE TABATHA TSANG MDWALDO C 12/22/2011 85276 COMPREHEN METABOLIC PANEL TABATHA TSANG MDWALDO C 12/22/2011 64004 ASSAY OF FREE THYROXINE TABATHA TSANG MDWALDO C 12/22/2011 30855 ASSAY THYROID STIM HORMONE TRINH HEATON, MOON C 12/22/2011 68303 COMPLETE CBC W/AUTO DIFF WBC TRINH HEATON, MOON C 12/22/2011 66654 ROUTINE VENIPUNCTURE ANTIONETTE HEATON, NATE A 02/22/2012 84054 COMPREHEN METABOLIC PANEL ANTIONETTE HEATON, NATE A 02/22/2012 95596 LIPID PANEL ANTIONETTE HEATON, NATE A 02/22/2012 79568 URINALYSIS, AUTO W/SCOPE ANTIONETTE HEATON, NATE A 02/22/2012 67535 ASSAY, TRIIODOTHYRONINE (T3 ) ANTIONETTE HEATON, NATE A 02/22/2012 82444 ASSAY OF BLOOD/URIC ACID ANTIONETTE HEATON, NATE A 02/22/2012 03012 COMPLETE CBC W/AUTO DIFF WBC ANTIONETTE HEATON, NATE A 02/22/2012 66971 RHEUMATOID FACTOR, QUANT ANTIONETTE HEATON, NATE A 02/22/2012 99911 URINE CULTURE/COLONY COUNT ANTIONETTE HEATON, NATE A 02/22/2012 81529 EXTRACRANIAL STUDY ANTIONETTE HEATON, NATE A 02/28/2012 99117 VITAMIN B-12 ANTIONETTE HEATON, NATE A 03/01/2012 07089 ASSAY OF FREE THYROXINE ANTIONETTE HEATON, NATE A 03/01/2012 19625 ASSAY THYROID STIM HORMONE ANTIONETTE HEATON, NATE Dennis 03/01/2012 84192 COMPREHEN METABOLIC PANEL ANTIONETTE HEATON, NATE A 09/17/2012 09027 ASSAY THYROID STIM HORMONE ANTIONETTE HEATON, NATE A 09/17/2012 13956 COMPLETE CBC W/AUTO DIFF WBC ANTIONETTE HEATON, NATE A 09/17/2012 36623 RBC SED RATE, NONAUTOMATED ANTIONETTE HEATON, NATE A 09/17/2012 14695 ROUTINE VENIPUNCTURE STEPHAN TSANG MDO C 10/29/2012 54502 COMPREHEN METABOLIC PANEL TABATHA TSANG MDWALDO C 10/29/2012 51804 COMPLETE CBC W/AUTO DIFF WBC TRINH HEATON, MOON C 10/29/2012 75709 X-RAY EXAM OF FOOT VANESA DUBON MD 12/12/2012 79340 ASSAY OF FREE THYROXINE ANTIONETTE HEATON, NATE Dennis 12/20/2012 01053 ASSAY THYROID STIM HORMONE ANTIONETTE HEATON, NATE A 12/20/2012 28748 X-RAY EXAM OF FOOT ANTIONETTE HEATON NATE A 01/08/2013 70045 X-RAY EXAM OF FOOT ANTIONETTE HEATON NATE A 02/26/2013 63351 X-RAY EXAM OF JESSICA HOU MD NATE A 03/26/2013 21485 URINALYSIS, AUTO W/SCOPE ANTIONETTE HEATON NATE Sonny 04/01/2014 39496 URINE CULTURE/COLONY COUNT ANTIONETTE HEATON NATE Sonny 04/01/2014 92177 X-RAY EXAM OF SHOULDER KEATON YIP MD 05/06/2014 42143 COMPUTER DX MAMMOGRAM ADD- ON NATE HOU MD 05/14/2014 24584 MAMMOGRAM, BOTH BREASTS ANTIONETTE HEATON NATE Sonny 05/14/2014 11327 COMPUTER DX MAMMOGRAM ADD- ON ANTIONETTE HEATON NATE A 05/14/2014 18800 MAMMOGRAM, BOTH BREASTS ANTIONETTE HEATON NATE Snony 05/14/2014 46869 PT RE-EVALUATION KEATON YIP MD 05/14/2014 29381 ULTRASOUND THERAPY KEATON YIP MD 05/14/2014 G8984 CARRY CURRENT STATUS KEATON YIP MD 05/14/2014 G8985 CARRY GOAL STATUS KEATON YIP MD 05/14/2014 57326 ULTRASOUND THERAPY KEATON YIP MD 05/16/2014 96437 X-RAY EXAM OF FOOT ANTIONETTE HEATON NATE Sonny 06/17/2014 Results Test Result Range CMP - 09/17/12 13:56 Osmo Calculated 276 MOSM 261-280 Sodium 140 MMOLL 137-145 T. Protein 6.6 G/DL 6.3-8.2 Potassium 4.4 MMOLL 3.6-5.0 T Bili 0.4 MG/DL 0.2-1.3 Calcium 9.2 MG/DL 8.4-10.2 BUN 25 MG/DL 7-21 Chloride 103 MMOLL 98-107 AST 43 U/L 15-46 ALT 29 U/L 7-56 Albumin 3.8 G/DL 3.5-5.0 A/G Ratio 1.3 RATIO 1.2-2.2 Bun/Creat 31.8 RATIO 7-25 Alk Phos 79 U/L 38-126 CO2 25 MMOLL 22-30 Glucose 109 MG/DL 65-110 Globulin 2.8 2.4-3.5 Creatinine 0.8 MG/DL 0.7-1.5 COMPLETE BLOOD COUNT - 09/17/12 13:56 Platelet 230 10^3u 142-424 MPV 9.4 FL 9.4-12.4 [place] # 0.54 10^3u 0.0-1.0 RBC 3.43 10^6u 4.04-6.13 [place] % 10.5 % 0-12 RDW 12.7 % 11.6-14.8 Neut # 3.06 10^3u 2.0-6.9 Neut % 59.7 % 37-80 WBC 5.13 10^3u 4.60-10.20 MCV 98.5 FL 80.0-97.0 Baso # 0.03 10^3u 0.0-0.1 Baso % 0.6 % 0-2 Eos # 0.17 10^3u 0-7 Eos % 3.3 % 0.0-0.7 Lymph % 25.9 % 10-50 MCHC 33.4 G/DL 31.8-35.4 MCH 32.9 PG 27.0-31.2 Lymph # 1.33 10^3u 0.6-3.4 HGB 11.3 G/DL 12.2-18.1 HCT 33.8 % 37.7-53.7 Sed Rate (ESR) - 09/17/12 13:56 Sed Rate (ESR) 10 MM/hr 5-20 TSH - 09/17/12 13:56 TSH 6.76 UIUML 0.35-4.94 COMPLETE BLOOD COUNT - 10/29/12 16:20 Platelet 223 10^3u 142-424 MPV 9.8 FL 9.4-12.4 [place] # 0.59 10^3u 0.0-1.0 RBC 3.25 10^6u 4.04-6.13 [place] % 11.3 % 0-12 RDW 13.0 % 11.6-14.8 Neut # 3.16 10^3u 2.0-6.9 Neut % 60.6 % 37-80 WBC 5.21 10^3u 4.60-10.20 MCV 98.8 FL 80.0-97.0 Baso # 0.03 10^3u 0.0-0.1 Baso % 0.6 % 0-2 Eos # 0.15 10^3u 0-0.7 Eos % 2.9 % 0-7 Lymph % 24.6 % 10-50 MCHC 33.3 G/DL 31.8-35.4 MCH 32.9 PG 27.0-31.2 Lymph # 1.28 10^3u 0.6-3.4 HGB 10.7 G/DL 12.2-18.1 HCT 32.1 % 37.7-53.7 CMP - 10/29/12 16:20 Osmo Calculated 275 MOSM 261-280 Sodium 140 MMOLL 137-145 T. Protein 6.5 G/DL 6.3-8.2 Potassium 4.7 MMOLL 3.6-5.0 T Bili 0.4 MG/DL 0.2-1.3 Calcium 9.1 MG/DL 8.4-10.2 BUN 27 MG/DL 7-21 Chloride 104 MMOLL 98-107 AST 40 U/L 15-46 ALT 26 U/L 7-56 Albumin 3.5 G/DL 3.5-5.0 A/G Ratio 1.2 RATIO 1.2-2.2 Bun/Creat 31.1 RATIO 7-25 Alk Phos 76 U/L 38-126 CO2 26 MMOLL 22-30 Glucose 90 MG/DL 65-110 Globulin 3.0 2.4-3.5 Creatinine 0.9 MG/DL 0.7-1.5 Free T4 - 12/20/12 10:07 Free T4 0.80 NG/DL 0.70-1.48 TSH - 12/20/12 10:07 TSH 10.39 UIUML 0.35-4.94 Urinalysis - 04/01/14 13:25 Glucose Negative Negative Leukocyte 2+ Negative Nitrite Negative Negative pH 5.5 5.5-7.5 Urine Appearance Clear Clear Protein Negative Negative Ketones Trace Negative Urobilinogen 0.2 0.2-1.0 Urine RBC NONESEEN Specific [place] 1.025 1.010-1.020 Urine WBC N6-10 Urine Bacteria NONESEEN Blood Negative Negative Color Yellow Yellow Squamous Epithelial Cells Trace Bilirubin Negative Negative Site UNK Vitamin D, 25 OH - 10/03/16 14:32 Vitamin D, 25 OH 16.80 ng/mL 25.00-100.00 Urinalysis - 10/03/16 14:32 Icotest N/A Negative Urine Volume Urine Volume Sufficient (10mL) Urine Yeast No Yeast present Urine-Appearance Clear Clear Urine-Bacteria Trace Urine-Bilirubin Negative Negative Urine-Blood Negative Negative Urine-Color Yellow Colorless-Lt. Yellow Urine-Epithelial Cells 0-5/HPF Urine-Glucose Negative Negative Urine-Ketones Negative Negative Urine-Leukocytes 2+ Negative Urine-Mucus 1+ Urine-Nitrite Negative Negative Urine-Other Culture to follow Urine-pH 5.5 5-8.5 Urine-Protein Negative Negative Urine-RBC 2-5/HPF Urine-Specific [place] 1.020 1.000-1.030 Urine-WBC 10-20/HPF Urobilinogen 0.2 0.2-1.0 MRSA Screen - 10/03/16 14:32 FINAL CULTURE RESULTS MRSA Negative Nasal Culture MEDIA PLATED Setup at 15:10 on 10/03/2016 Urine Culture - 10/03/16 18:37 FINAL CULTURE RESULTS 50,000-100,000 Gram Positive Mixed Wendy [id number] Further Workup done MEDIA PLATED Setup at 18:40 on 10/03/2016 CULTURE SOURCE void Lipid Panel - 10/04/16 05:00 C/HDL 2.8 3.7-6.7 Cholesterol 112 mg/dL 100-240 HDL 40 mg/dL 30-85 LDL-Calculated 56 mg/dL 0-100 Trig 82 mg/dL 35-160 VLDL 16 mg/dL 0-42 Complete blood count (CBC) with automated white blood cell (WBC) differential - 10/22/16 07:45 Blood leukocytes automated count (number/volume) 7.9 10*3/uL 4.3-11.0 Blood erythrocytes automated count (number/volume) 3.61 10*6/uL 4.35-5.85 Venous blood hemoglobin measurement (mass/volume) 11.7 g/dL 11.5-16.0 Blood hematocrit (volume fraction) 36 % 35-52 Automated erythrocyte mean corpuscular volume 99 [foz_us] 80-99 Automated erythrocyte mean corpuscular hemoglobin (mass per erythrocyte) 32 pg 25-34 Automated erythrocyte mean corpuscular hemoglobin concentration measurement ( mass/volume) 33 g/dL 32-36 Automated erythrocyte distribution width ratio 12.4 % 10.0-14.5 Automated blood platelet count (count/volume) 208 10*3/uL 130-400 Automated blood platelet mean volume measurement 9.3 [foz_us] 7.4-10.4 Automated blood neutrophils/100 leukocytes 75 % 42-75 Automated blood lymphocytes/100 leukocytes 16 % 12-44 Blood monocytes/100 leukocytes 8 % 0-12 Automated blood eosinophils/100 leukocytes 1 % 0-10 Automated blood basophils/100 leukocytes 0 % 0-10 Blood neutrophils automated count (number/volume) 5.9 10*3 1.8-7.8 Blood lymphocytes automated count (number/volume) 1.3 10*3 1.0-4.0 Blood monocytes automated count (number/volume) 0.6 10*3 0.0-1.0 Automated eosinophil count 0.1 10*3/uL 0.0-0.3 Automated blood basophil count (count/volume) 0.0 10*3/uL 0.0-0.1 PT panel in platelet poor plasma by coagulation assay - 10/22/16 07:45 Prothrombin time (PT) in platelet poor plasma by coagulation assay 13.6 s 12.2-14.7 INR in platelet poor plasma or blood by coagulation assay 1.1 0.8-1.4 Activated partial thromboplastin time (aPTT) in platelet poor plasma bycoagulation assay - 10/22/16 07:45 Activated partial thromboplastin time (aPTT) in platelet poor plasma bycoagulation assay 32 s 24-35 Fibrin D-dimer FEU measurement in platelet poor plasma (mass/volume) - 07:45 Fibrin D-dimer FEU measurement in platelet poor plasma (mass/volume) 1.14 ug/mL 0.00-0.49 Comprehensive metabolic panel - 10/22/16 07:45 Serum or plasma sodium measurement (moles/volume) 138 mmol/L 135-145 Serum or plasma potassium measurement (moles/volume) 4.9 mmol/L 3.6-5.0 Serum or plasma chloride measurement (moles/volume) 104 mmol/L 98-107 Carbon dioxide 22 mmol/L 21-32 Serum or plasma anion gap determination (moles/volume) 12 mmol/L 5-14 Serum or plasma urea nitrogen measurement (mass/volume) 24 mg/dL 7-18 Serum or plasma creatinine measurement (mass/volume) 1.06 mg/dL 0.60-1.30 Serum or plasma urea nitrogen/creatinine mass ratio 23 NRG Serum or plasma creatinine measurement with calculation of estimated glomerular filtration rate 50 NRG Serum or plasma glucose measurement (mass/volume) 165 mg/dL 70-105 Serum or plasma calcium measurement (mass/volume) 9.2 mg/dL 8.5-10.1 Serum or plasma total bilirubin measurement (mass/volume) 0.5 mg/dL 0.1-1.0 Serum or plasma alkaline phosphatase measurement (enzymatic activity/volume) 95 U/L 40-136 Serum or plasma aspartate aminotransferase measurement (enzymatic activity/ volume) 15 U/L 5-34 Serum or plasma alanine aminotransferase measurement (enzymatic activity/volume ) 12 U/L 0-55 Serum or plasma protein measurement (mass/volume) 6.7 g/dL 6.4-8.2 Serum or plasma albumin measurement (mass/volume) 4.0 g/dL 3.2-4.5 Serum or plasma troponin i.cardiac measurement (mass/volume) - 10/22/16 07:45 Serum or plasma troponin i.cardiac measurement (mass/volume) < ng/ mL <0.30 Capillary blood glucose measurement by glucometer (mass/volume) - 10/22/16 08: 02 Capillary blood glucose measurement by glucometer (mass/volume) 162 mg/dL 70-110 Complete urinalysis with reflex to culture - 10/22/16 09:27 Urine color determination YELLOW NRG Urine clarity determination CLEAR NRG Urine pH measurement by test strip 6 5-9 Specific gravity of urine by test strip 1.010 1.016- 1.022 Urine protein assay by test strip, semi-quantitative NEGATIVE NEGATIVE Urine glucose detection by automated test strip NEGATIVE NEGATIVE Erythrocytes detection in urine sediment by light microscopy NEGATIVE NEGATIVE Urine ketones detection by automated test strip NEGATIVE NEGATIVE Urine nitrite detection by test strip NEGATIVE NEGATIVE Urine total bilirubin detection by test strip NEGATIVE NEGATIVE Urine urobilinogen measurement by automated test strip (mass/volume) NORMAL NORMAL Urine leukocyte esterase detection by dipstick NEGATIVE NEGATIVE Automated urine sediment erythrocyte count by microscopy (number/high power field) NONE NRG Automated urine sediment leukocyte count by microscopy (number/high power field ) NONE NRG Bacteria detection in urine sediment by light microscopy NEGATIVE NRG Squamous epithelial cells detection in urine sediment by light microscopy RARE NRG Crystals detection in urine sediment by light microscopy NONE NRG Casts detection in urine sediment by light microscopy NONE NRG Mucus detection in urine sediment by light microscopy NEGATIVE NRG Complete urinalysis with reflex to culture NO NRG Blood CBC with ordered manual differential panel - 10/23/16 05:37 Blood leukocytes automated count (number/volume) 6.2 10*3/uL 4.3-11.0 Blood erythrocytes automated count (number/volume) 3.62 10*6/uL 4.35-5.85 Venous blood hemoglobin measurement (mass/volume) 11.7 g/dL 11.5-16.0 Blood hematocrit (volume fraction) 36 % 35-52 Automated erythrocyte mean corpuscular volume 99 [foz_us] 80-99 Automated erythrocyte mean corpuscular hemoglobin (mass per erythrocyte) 32 pg 25-34 Automated erythrocyte mean corpuscular hemoglobin concentration measurement ( mass/volume) 33 g/dL 32-36 Automated erythrocyte distribution width ratio 12.5 % 10.0-14.5 Automated blood platelet count (count/volume) 205 10*3/uL 130-400 Automated blood platelet mean volume measurement 9.6 [foz_us] 7.4-10.4 Automated blood neutrophils/100 leukocytes 57 % 42-75 Automated blood lymphocytes/100 leukocytes 27 % 12-44 Blood monocytes/100 leukocytes 11 % NRG Automated blood eosinophils/100 leukocytes 3 % 0-10 Automated blood basophils/100 leukocytes 1 % 0-10 Blood neutrophils automated count (number/volume) 3.5 10*3 1.8-7.8 Blood lymphocytes automated count (number/volume) 1.7 10*3 1.0-4.0 Blood monocytes automated count (number/volume) 0.8 10*3 0.0-1.0 Automated eosinophil count 0.2 10*3/uL 0.0-0.3 Automated blood basophil count (count/volume) 0.0 10*3/uL 0.0-0.1 Manual blood segmented neutrophils/100 leukocytes 65 % NR Blood band neutrophils/100 leukocytes 2 % NRG Manual blood lymphocytes/100 leukocytes 20 % NRG Manual eosinophils/100 leukocytes in nose 2 % NRG Blood stomatocytes detection by light microscopy [facility] Comprehensive metabolic panel - 10/23/16 05:37 Serum or plasma sodium measurement (moles/volume) 139 mmol/L 135-145 Serum or plasma potassium measurement (moles/volume) 4.6 mmol/L 3.6-5.0 Serum or plasma chloride measurement (moles/volume) 105 mmol/L 98-107 Carbon dioxide 24 mmol/L 21-32 Serum or plasma anion gap determination (moles/volume) 10 mmol/L 5-14 Serum or plasma urea nitrogen measurement (mass/volume) 22 mg/dL 7-18 Serum or plasma creatinine measurement (mass/volume) 0.89 mg/dL 0.60-1.30 Serum or plasma urea nitrogen/creatinine mass ratio 25 NRG Serum or plasma creatinine measurement with calculation of estimated glomerular filtration rate > NRG Serum or plasma glucose measurement (mass/volume) 98 mg/dL 70-105 Serum or plasma calcium measurement (mass/volume) 9.3 mg/dL 8.5-10.1 Serum or plasma total bilirubin measurement (mass/volume) 0.5 mg/dL 0.1-1.0 Serum or plasma alkaline phosphatase measurement (enzymatic activity/volume) 89 U/L 40-136 Serum or plasma aspartate aminotransferase measurement (enzymatic activity/ volume) 16 U/L 5-34 Serum or plasma alanine aminotransferase measurement (enzymatic activity/volume ) 12 U/L 0-55 Serum or plasma protein measurement (mass/volume) 6.1 g/dL 6.4-8.2 Serum or plasma albumin measurement (mass/volume) 3.7 g/dL 3.2-4.5 Gram stain microscopy - 10/24/16 11:00 GRAM STAIN RESULT MODERATE # GRAM POSITIVE COCCI NR Bacteria identification in wound by culture - 10/24/16 11:00 Bacteria identification in wound by culture [id number] NR FREE TEXT EXTERNAL SENSITIVITY REPORTED 10/26 07:01 NRG QUANTITY OF GROWTH Scant Growth NR Bacterial susceptibility panel - 10/24/16 11:00 Oxacillin susceptibility test by minimum inhibitory concentration 0.5 NRG Gentamicin susceptibility test by minimum inhibitory concentration < = NRG Clindamycin susceptibility test by minimum inhibitory concentration <= NRG Erythromycin susceptibility test by minimum inhibitory concentration <= NRG Trimethoprim/sulfamethoxazole susceptibility test by minimum inhibitoryconcentration <= NRG Vancomycin susceptibility test by minimum inhibitory concentration 1 NRG Levofloxacin susceptibility test by minimum inhibitory concentration 0.25 NRG Rifampin susceptibility test by minimum inhibitory concentration <= NRG Tetracycline susceptibility test by minimum inhibitory concentration <= NRG Bacterial susceptibility panel - 10/24/16 11:00 Gentamicin susceptibility test by minimum inhibitory concentration < = NRG Trimethoprim/sulfamethoxazole susceptibility test by minimum inhibitoryconcentration <= NRG Tobramycin susceptibility test by minimum inhibitory concentration < = NRG Cefazolin susceptibility test by minimum inhibitory concentration > = NRG Ceftriaxone susceptibility test by minimum inhibitory concentration <= NRG Ciprofloxacin susceptibility test by minimum inhibitory concentration <= NRG Meropenem susceptibility test by minimum inhibitory concentration < = NRG Aztreonam susceptibility test by minimum inhibitory concentration < = NRG Urinalysis - 01/25/18 13:48 Icotest N/A Negative Urine Volume Urine Volume Sufficient (10mL) Urine-Appearance Clear Clear Urine-Bacteria Negative Urine-Bilirubin Negative Negative Urine-Blood Negative Negative Urine-Color Yellow Colorless-Lt. Yellow Urine-Epithelial Cells 0-5/HPF Urine-Glucose Negative Negative Urine-Ketones Negative Negative Urine-Leukocytes 1+ Negative Urine-Nitrite Negative Negative Urine-Other Urine Saved if Culture Needed (48hrs from time of collection) Urine-pH 7.0 5-8.5 Urine-Protein Negative Negative Urine-RBC 0-2/HPF Urine-Specific [place] 1.015 1.000-1.030 Urine-WBC 5-10/HPF Urobilinogen 0.2 0.2-1.0 MRSA Screen - 01/25/18 13:48 FINAL CULTURE RESULTS MRSA Negative Nasal Culture MEDIA PLATED Setup at 16:01 on 01/25/2018 Urinalysis - 02/01/18 07:32 Icotest N/A Negative Urine Volume Urine Volume Sufficient (10mL) Urine Yeast No Yeast present Urine-Appearance Clear Clear Urine-Bacteria Negative Urine-Bilirubin Negative Negative Urine-Blood Trace Negative Urine-Color Yellow Colorless-Lt. Yellow Urine-Epithelial Cells 0-5/HPF Urine-Glucose Negative Negative Urine-Ketones Negative Negative Urine-Leukocytes Negative Negative Urine-Nitrite Negative Negative Urine-Other Urine Saved if Culture Needed (48hrs from time of collection) Urine-pH 6.0 5-8.5 Urine-Protein Negative Negative Urine-RBC 0-2/HPF Urine-Specific [place] 1.015 1.000-1.030 Urine-WBC Negative Urobilinogen 0.2 0.2-1.0 Comprehensive Metabolic Panel - 02/01/18 09:10 Albumin 3.5 g/dL 3.6-5.1 ALP 101 U/L 35-130 ALT 8 U/L 6-45 Anion Gap 21 6-14 AST 15 U/L 2-40 BUN 71 mg/dL 5-25 Calcium 9.3 mg/dL 8.3-10.4 Chloride 99 mmol/L 95-114 CO2 22 mEq/L 22-33 Creat 2.46 mg/dL 0.50-1.50 eGFR 19 mL/min/1.73m2 >59 Globulin 2.4 g/dL 2.3-3.5 Glucose 91 mg/dL 70-110 Osmo 298 280-295 Potassium 6.6 Result Verified by Repeat Analysis mmol/L 3.5-5.3 Sodium 135 mmol/L 134-148 TBil 0.4 mg/dL 0.2-1.2 TP 5.9 g/dL 6.0-8.3 BMP - 02/03/18 05:45 Anion Gap 16 6-14 BUN 49 mg/dL 5-25 Calcium 9.2 mg/dL 8.3-10.4 Chloride 104 mmol/L 95-114 CO2 24 mEq/L 22-33 Creat 1.24 mg/dL 0.50-1.50 eGFR 41 mL/min/1.73m2 >59 Glucose 91 mg/dL 70-110 Osmo 299 280-295 Potassium 5.0 mmol/L 3.5-5.3 Sodium 139 mmol/L 134-148 Complete blood count (CBC) with automated white blood cell (WBC) differential - 02/10/18 04:09 Blood leukocytes automated count (number/volume) 6.3 10*3/uL 4.3-11.0 Blood erythrocytes automated count (number/volume) 3.08 10*6/uL 4.35-5.85 Venous blood hemoglobin measurement (mass/volume) 10.1 g/dL 11.5-16.0 Blood hematocrit (volume fraction) 30 % 35-52 Automated erythrocyte mean corpuscular volume 97 [foz_us] 80-99 Automated erythrocyte mean corpuscular hemoglobin (mass per erythrocyte) 33 pg 25-34 Automated erythrocyte mean corpuscular hemoglobin concentration measurement ( mass/volume) 34 g/dL 32-36 Automated erythrocyte distribution width ratio 12.5 % 10.0-14.5 Automated blood platelet count (count/volume) 256 10*3/uL 130-400 Automated blood platelet mean volume measurement 8.8 [foz_us] 7.4-10.4 Automated blood neutrophils/100 leukocytes 58 % 42-75 Automated blood lymphocytes/100 leukocytes 20 % 12-44 Blood monocytes/100 leukocytes 12 % 0-12 Automated blood eosinophils/100 leukocytes 9 % 0-10 Automated blood basophils/100 leukocytes 0 % 0-10 Blood neutrophils automated count (number/volume) 3.7 10*3 1.8-7.8 Blood lymphocytes automated count (number/volume) 1.3 10*3 1.0-4.0 Blood monocytes automated count (number/volume) 0.8 10*3 0.0-1.0 Automated eosinophil count 0.6 10*3/uL 0.0-0.3 Automated blood basophil count (count/volume) 0.0 10*3/uL 0.0-0.1 Comprehensive metabolic panel - 02/10/18 04:09 Serum or plasma sodium measurement (moles/volume) 136 mmol/L 135-145 Serum or plasma potassium measurement (moles/volume) 5.0 mmol/L 3.6-5.0 Serum or plasma chloride measurement (moles/volume) 107 mmol/L 98-107 Carbon dioxide 17 mmol/L 21-32 Serum or plasma anion gap determination (moles/volume) 12 mmol/L 5-14 Serum or plasma urea nitrogen measurement (mass/volume) 54 mg/dL 7-18 Serum or plasma creatinine measurement (mass/volume) 1.83 mg/dL 0.60-1.30 Serum or plasma urea nitrogen/creatinine mass ratio 30 NRG Serum or plasma creatinine measurement with calculation of estimated glomerular filtration rate 26 NRG Serum or plasma glucose measurement (mass/volume) 104 mg/dL 70-105 Serum or plasma calcium measurement (mass/volume) 9.2 mg/dL 8.5-10.1 Serum or plasma total bilirubin measurement (mass/volume) 0.4 mg/dL 0.1-1.0 Serum or plasma alkaline phosphatase measurement (enzymatic activity/volume) 98 U/L 40-136 Serum or plasma aspartate aminotransferase measurement (enzymatic activity/ volume) 24 U/L 5-34 Serum or plasma alanine aminotransferase measurement (enzymatic activity/volume ) 19 U/L 0-55 Serum or plasma protein measurement (mass/volume) 6.2 g/dL 6.4-8.2 Serum or plasma albumin measurement (mass/volume) 3.4 g/dL 3.2-4.5 CALCIUM CORRECTED 9.7 mg/dL 8.5-10.1 THYROID STIMULATING HORMONE - 02/10/18 04:09 THYROID STIMULATING HORMONE 4.05 u[iU]/mL 0.35-4.94 Serum or plasma thyroxine (T4) free measurement (mass/volume) - 02/10/18 04:09 Serum or plasma thyroxine (T4) free measurement (mass/volume) 0.98 ng/dL 0.70-1.48 [id number] - 02/10/18 04:09 [id number] 4.9 ug/mL 50.0-100.0 Complete urinalysis with reflex to culture - 02/10/18 04:26 Urine color determination YELLOW NRG Urine clarity determination CLEAR NRG Urine pH measurement by test strip 5 5-9 Specific gravity of urine by test strip 1.020 1.016- 1.022 Urine protein assay by test strip, semi-quantitative NEGATIVE NEGATIVE Urine glucose detection by automated test strip NEGATIVE NEGATIVE Erythrocytes detection in urine sediment by light microscopy NEGATIVE NEGATIVE Urine ketones detection by automated test strip NEGATIVE NEGATIVE Urine nitrite detection by test strip NEGATIVE NEGATIVE Urine total bilirubin detection by test strip NEGATIVE NEGATIVE Urine urobilinogen measurement by automated test strip (mass/volume) NORMAL NORMAL Urine leukocyte esterase detection by dipstick 1+ NEGATIVE Automated urine sediment erythrocyte count by microscopy (number/high power field) NONE NRG Automated urine sediment leukocyte count by microscopy (number/high power field ) RARE NRG Bacteria detection in urine sediment by light microscopy NEGATIVE NRG Squamous epithelial cells detection in urine sediment by light microscopy RARE NRG Crystals detection in urine sediment by light microscopy NONE NRG Casts detection in urine sediment by light microscopy PRESENT NRG Mucus detection in urine sediment by light microscopy SMALL NRG Complete urinalysis with reflex to culture NO NRG Hyaline casts detection in urine sediment by light microscopy 0-2 NRG Encounters ACCT No. Visit Date/Time Discharge Status Pt. Type Provider Facility Loc./Unit Complaint [id number] 06/17/2014 11:34:00 06/17/2014 11:34:00 DIS Outpatient ANTIONETTE HEATON, [facility] OTHER [id number] 06/02/2014 00:01:00 06/02/2014 13:51:00 DIS Outpatient PHI HEATON, [facility] OTHER [id number] 05/14/2014 14:41:00 06/01/2014 23:59:00 DIS Outpatient PHI HEATON, [facility] OTHER [id number] 05/14/2014 11:16:00 05/14/2014 11:16:00 DIS Outpatient ANTIONETTE HEATON, [facility] OTHER [id number] 05/06/2014 11:53:00 05/06/2014 11:53:00 DIS Outpatient PHI HEATON, [facility] OTHER [id number] 04/01/2014 13:18:00 04/01/2014 13:18:00 DIS Outpatient ANTIONETTE HEATON, [facility] [id number] 03/26/2013 13:58:00 03/26/2013 13:58:00 DIS Outpatient ANTIONETTE HEATON, [facility] OTHER [id number] 02/26/2013 09:43:00 02/26/2013 09:43:00 DIS Outpatient ANTIONETTE HEATON, [facility] OTHER [id number] 01/08/2013 10:48:00 01/08/2013 10:48:00 DIS Outpatient ANTIONETTE HEATON, [facility] OTHER [id number] 12/20/2012 09:58:00 12/20/2012 09:58:00 DIS Outpatient ANTIONETTE HEATON, [facility] [id number] 12/12/2012 09:41:00 12/12/2012 09:41:00 DIS Outpatient JAGDISH HEATON, [facility] OTHER [id number] 10/29/2012 12:17:00 10/29/2012 12:17:00 DIS Outpatient TRINH HEATON, [facility] OTHER [id number] 09/17/2012 13:49:00 09/17/2012 13:49:00 DIS Outpatient ANTIONETTE HEATON, [facility] [id number] 03/01/2012 10:49:00 Document Registration [id number] 02/28/2012 10:46:00 Document Registration [id number] 02/22/2012 09:40:00 Document Registration [id number] 12/22/2011 12:25:00 Document Registration [id number] 06/01/2011 12:03:00 Document Registration [id number] 03/25/2011 09:36:00 Document Registration [id number] 02/17/2011 11:59:00 Document Registration [id number] 07/06/2010 15:11:00 Document Registration [id number] 07/23/2009 07:32:00 Document Registration [id number] 06/17/2014 23:42:26 ACT Document Registration [id number] 01/25/2018 12:59:00 02/09/2018 09:15:00 DIS Inpatient DELTA LOPEZ [facility] SINA [id number] 10/03/2016 14:09:00 10/13/2016 13:10:00 DIS Inpatient REGAN [facility] SINA [id number] 10/03/2016 15:52:31 Document Registration [id number] 02/07/2017 20:55:56 02/07/2017 23:59:59 CLS Outpatient [id number] 10/22/2016 11:05:00 10/25/2016 11:33:00 DIS Inpatient NATE HOU MD [facility] 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 [id number] 03/07/2016 07:31:00 03/07/2016 09:39:00 DIS Emergency JOSÉ HEATON, MICHAEL Bermeo [facility] ER SWOLLEN LEFT INDEX FINGER [id number] 04/24/2015 09:03:00 04/24/2015 23:59:59 CLS Outpatient NATE HOU MD [facility] RAD LEFT BREAST PAIN [id number] 04/17/2014 12:00:00 04/17/2014 23:59:59 CLS Outpatient NATE HOU MD [facility] RAD ARM PAIN,FALL [id number] 02/01/2013 11:46:00 02/01/2013 23:59:59 CLS Outpatient NATE HOU MD [facility] RAD RECENT FX [id number] 11/14/2012 12:36:00 11/14/2012 23:59:59 CLS Outpatient NATE HOU MD [facility] RAD FOOT PAIN,FALL [id number] 02/21/2018 16:43:00 Document Registration [id number] 02/10/2018 04:25:00 Document Registration [id number] 04/04/2017 09:00:00 04/04/2017 23:59:59 CLS Outpatient Nate Hou [facility]
[2018-05-06 11:12] LABS: BASOPHILS % (AUTO) 0 % (0-10); EOSINOPHILS # (AUTO) 0.1 10^3/uL (0.0-0.3); EOSINOPHILS % (AUTO) 1 % (0-10); HEMATOCRIT 26 % (35-52); HEMOGLOBIN 8.1 G/DL (11.5-16.0); LYMPHOCYTES # (AUTO) 1.2 X 10^3 (1.0-4.0); LYMPHOCYTES % (AUTO) 17 % (12-44); MEAN CORPUSCULAR HEMOGLOBIN 32 PG (25-34); MEAN CORPUSCULAR HGB CONC 31 G/DL (32-36); MEAN CORPUSCULAR VOLUME 102 FL (80-99); MEAN PLATELET VOLUME 8.5 FL (7.4-10.4); MONOCYTES # (AUTO) 0.8 X 10^3 (0.0-1.0); MONOCYTES % (AUTO) 11 % (0-12); NEUTROPHILS % (AUTO) 70 % (42-75); PLATELET COUNT 308 10^3/uL (130-400); RED BLOOD COUNT 2.54 10^6/uL (4.35-5.85); RED CELL DISTRIBUTION WIDTH 12.8 % (10.0-14.5); WHITE BLOOD COUNT 7.1 10^3/uL (4.3-11.0)
[2018-05-06] MEDS ORDERED: IBUPROFEN 800 MG (MOTRIN) TAB PO ONE (11:15)
[2018-05-06] MEDS ORDERED: NS IV 1000 ML 1,000 ML IV SCH (11:15)
[2018-05-06] MEDS ORDERED: DILTIAZEM 25 MG/5 ML INJ (CARDIZEM) VIAL IVP ONE (11:15)
--- NOTE | 2018-05-06 11:17 | ED General ---
General Chief Complaint: -Female Stated Complaint: POSS UTI Source of Information: Patient Exam Limitations: No Limitations History of Present Illness Date Seen by Provider: May 06, 2018 Time Seen by Provider: 11:12 Initial Comments To ER with reports of a possible urinary tract infection. She arrives per EMS from medical [facility]. She was suspected to have a urinary tract infection earlier this week obtained by urinalysis in the outpatient setting. She was started on Augmentin. Despite this she has had persistent fevers. She is a DO NOT RESUSCITATE status. Primary care is Dr. Hou. The patient's daughter reports a significant decline and physical and cognitive health since about January of this year. At this time patient lays in bed and is moaning and screaming loudly which the patient's daughter states she's been doing quite a lot for about the past 3 weeks. Timing/Duration: Getting Worse, Intermittent Associated Systoms: Fever/Chills Allergies and Home Medications Allergies Coded Allergies: No Known Drug Allergies (Unverified , 03/07/16) Home Medications Aspirin 325 Mg Tablet, 325 MG PO DAILY@0900 Prescribed by: GABRIELLE ALEJO on 10/25/16 1035 Atenolol 100 Mg Tablet, 100 MG PO DAILY, (Reported) Atorvastatin Calcium 20 Mg Tablet, 20 MG PO HS Prescribed by: GABRIELLE ALEJO on 10/25/16 1035 Cephalexin 500 Mg Capsule, 500 MG PO TID Prescribed by: MICHAEL GARG on 02/21/181916 Cholecalciferol (Vitamin D3) 2,000 Unit Capsule, 4,000 UNIT PO DAILY, (Reported) TAKES 2 (2,000 UNIT) CAPSULES Citalopram Hydrobromide 20 Mg Tablet, 20 MG PO DAILY, (Reported) Divalproex Sodium 125 Mg Cap.sprink, 125 MG PO TID, (Reported) Fluticasone Propionate 16 Gm [place].susp, 1 SPRAY NSEACH BID, (Reported) Glucosa Levin 2Kcl/Chondroitin Levin 1 Each Capsule, 3 CAP PO DAILY, (Reported) Lactobacillus Acidophilus 1 Each Capsule, 1 CAP PO HS, (Reported) Lactulose 10 Gm/15 Ml Solution, 30 ML PO BID, (Reported) Levothyroxine Sodium 125 Mcg Tablet, 125 MCG PO MoWeFrSa, (Reported) Lorazepam 0.5 Mg Tablet, 0.25 MG PO HS, (Reported) Losartan Potassium 50 Mg Tablet, 50 MG PO DAILY Prescribed by: GABRIELLE ALEJO on 10/25/161034 Meloxicam 15 Mg Tablet, 15 MG PO DAILY, (Reported) Memantine HCl 10 Mg Tablet, 10 MG PO BID, (Reported) Mupirocin Calcium 15 Gm Cream..g., 0.5 GM TP BID apply to skin lesion on buttock Prescribed by: GABRIELLE ALEJO on 10/25/16 103 Rivastigmine 4.6 Mg Patch, 4.6 MG TD DAILY, (Reported) Spironolactone 25 Mg Tablet, 25 MG PO DAILY, (Reported) Sulfamethoxazole/Trimethoprim 1 Each Tablet, 1 EACH PO BID Prescribed by: GABRIELLE ALEJO on 10/25/161034 Patient Home Medication List Home Medication List Reviewed: Yes Review of Systems Review of Systems Constitutional: see HPI, chills, fever EENTM: see HPI Respiratory: no symptoms reported Cardiovascular: see HPI Genitourinary: no symptoms reported Musculoskeletal: no symptoms reported Skin: no symptoms reported Psychiatric/Neurological: See HPI Hematologic/Lymphatic: No Symptoms Reported Immunological/Allergic: no symptoms reported Past Upeayrg-Zqlznz-Jgrnip Hx Patient Social History 2nd Hand Smoke Exposure: No Recent Foreign Travel: No Contact w/Someone Who Travel: No Recent Hopitalizations: Yes ([facility]) Immunizations Up To Date Date of Pneumonia Vaccine: Jul 24, 2016 Seasonal Allergies Seasonal Allergies: No Past Medical History Surgeries: No Respiratory: No Cardiac: Yes ( CHF) High Cholesterol, Hypertension Neurological: Yes ([facility]) Dementia Genitourinary: No Gastrointestinal: No Musculoskeletal: No Endocrine: Yes Hypothyroidsim Cancer: No Psychosocial: Yes Anxiety, Depression Family Medical History No Pertinent Family Hx Physical Exam Vital Signs Vital Signs - First Documented 05/06/18 05/06/18 10:12 12:09 Temp 100.0 Pulse 120 Resp 18 B/P (MAP) 124/60 (81) Pulse Ox 98 Capillary Refill : Height, Weight, BMI Height: 5'3.00" Weight: 180lbs. 0.0oz. 81.497846vl; 25.8 BMI Method:Actual General Appearance: No Apparent Distress, WD/WN Eyes: Bilateral Eye Normal Inspection, Bilateral Eye PERRL, Bilateral Eye EOMI HEENT: PERRL/EOMI, TMs Normal Neck: Full Range of Motion, Normal Inspection Respiratory: No Accessory Muscle Use, No Respiratory Distress Cardiovascular: Irregularly Irregular, Tachycardia Gastrointestinal: Normal Bowel Sounds, Non Tender, Soft Extremity: Normal Capillary Refill, Normal Inspection Neurologic/Psychiatric: Other (lethargic, moaning and screaming randomly in bed.) Skin: Normal Color, Warm/Dry Focused Exam Lactate Level 05/06/18 10:45: Lactic Acid Level 1.03 Lactic Acid Level Laboratory Tests Test 05/06/18 10:45 Lactic Acid Level 1.03 MMOL/L (0.50-2.00) Progress/Results/Core Measures Suspected Sepsis SIRS Temperature: Pulse: Respiratory Rate: Laboratory Tests 05/06/18 10:45: White Blood Count 7.1 Blood Pressure / Mean: 05/06/18 10:45: Lactic Acid Level 1.03 Laboratory Tests 05/06/18 10:45: Creatinine 1.09, Platelet Count 308, Total Bilirubin 0.3 Results/Orders Lab Results Laboratory Tests Test 05/06/18 10:45 05/06/18 11:53 Range/Units White Blood Count 7.1 4.3-11.0 10^3/uL Red Blood Count 2.54 L 4.35-5.85 10^6/uL Hemoglobin 8.1 L 11.5-16.0 G/DL Hematocrit 26 L 35-52 % Mean Corpuscular Volume 102 H 80-99 FL Mean Corpuscular Hemoglobin 32 25-34 PG Mean Corpuscular Hemoglobin Concent 31 L 32-36 G/DL Red Cell Distribution Width 12.8 10.0-14.5 % Platelet Count 308 130-400 10^3/uL Mean Platelet Volume 8.5 7.4-10.4 FL Neutrophils (%) (Auto) 70 42-75 % Lymphocytes (%) (Auto) 17 12-44 % Monocytes (%) (Auto) 11 0-12 % Eosinophils (%) (Auto) 1 0-10 % Basophils (%) (Auto) 0 0-10 % Neutrophils # (Auto) 5.0 1.8-7.8 X 10^3 Lymphocytes # (Auto) 1.2 1.0-4.0 X 10^3 Monocytes # (Auto) 0.8 0.0-1.0 X 10^3 Eosinophils # (Auto) 0.1 0.0-0.3 10^3/uL Basophils # (Auto) 0.0 0.0-0.1 10^3/uL Sodium Level 148 H 135-145 MMOL/L Potassium Level 3.3 L 3.6-5.0 MMOL/L Chloride Level 111 H 98-107 MMOL/L Carbon Dioxide Level 24 21-32 MMOL/L Anion Gap 13 5-14 MMOL/L Blood Urea Nitrogen 43 H 7-18 MG/DL Creatinine 1.09 0.60-1.30 MG/DL Estimat Glomerular Filtration Rate 48 BUN/Creatinine Ratio 39 Glucose Level 96 70-105 MG/DL Lactic Acid Level 1.03 0.50-2.00 MMOL/L Calcium Level 8.4 L 8.5-10.1 MG/DL Corrected Calcium 9.6 8.5-10.1 MG/DL Total Bilirubin 0.3 0.1-1.0 MG/DL Aspartate Amino Transf (AST/SGOT) 19 5-34 U/L Alanine Aminotransferase (ALT/SGPT) 10 0-55 U/L Alkaline Phosphatase 64 40-136 U/L Troponin I < 0.30 <0.30 NG/ML B-Type Natriuretic Peptide 958.5 H <100.0 PG/ML Total Protein 5.5 L 6.4-8.2 GM/DL Albumin 2.5 L 3.2-4.5 GM/DL Urine Color YELLOW Urine Clarity SLIGHTLY CLOUDY Urine pH 5 5-9 Urine Specific [place] 1.025 H 1.016-1.022 Urine Protein 2+ H NEGATIVE Urine Glucose (UA) NEGATIVE NEGATIVE Urine Ketones 1+ H NEGATIVE Urine Nitrite NEGATIVE NEGATIVE Urine Bilirubin 1+ H NEGATIVE Urine Urobilinogen 4 H NORMAL MG/DL Urine Leukocyte Esterase 1+ H NEGATIVE Urine RBC (Auto) 1+ H NEGATIVE Urine RBC RARE /HPF Urine WBC 5-10 H /HPF Urine Crystals NONE /LPF Urine Bacteria LARGE H /HPF Urine Casts NONE /LPF Urine Mucus LARGE H /LPF Urine Other /HPF Urine Culture Indicated YES My Orders Orders - CUCO BENJAMIN APRN Ns Iv 1000 Ml (Sodium Chloride 0.9%) (05/06/18 11:15) Ibuprofen Tablet (Motrin Tablet) (05/06/18 11:15) Lorazepam Injection (Ativan Injection) (05/06/18 11:15) Cbc With Automated Diff (05/06/18 11:03) Comprehensive Metabolic Panel (05/06/18 11:03) Blood Culture (05/06/18 11:03) Lactic Acid Analyzer (05/06/18 11:03) Chest 1 View, Ap/Pa Only (05/06/18 11:03) Ua Culture If Indicated (05/06/18 11:03) Ekg Tracing (05/06/18 11:03) Diltiazem Injection (Cardizem Injection) (05/06/18 11:15) Acetaminophen Suppository (Tylenol Suppo (05/06/18 11:30) Lorazepam Injection (Ativan Injection) (05/06/18 11:45) Ns (Ivpb) (Sodium C... W/Diltiazem Iv Fo (05/06/18 12:00) BNP (05/06/18 11:55) Troponin I (05/06/18 11:55) Urine Culture (05/06/18 11:53) Enoxaparin Injection (Lovenox Injection) (05/06/18 13:00) Medications Given in ED Current Medications Medications Dose Ordered Sig/Montse Route Start Time Stop Time Status Last Admin Dose Admin Acetaminophen 650 mg ONCE ONCE [place] 05/06/18 11:30 05/06/18 11:31 DC 05/06/18 11:45 650 MG Diltiazem HCl 5 mg ONCE ONCE IVP 05/06/18 11:15 05/06/18 11:17 DC 05/06/18 11:24 5 MG Lorazepam 0.5 mg ONCE PRN IVP 05/06/18 11:15 05/06/18 11:45 0.5 MG Lorazepam 0.5 mg ONCE PRN IVP 05/06/18 11:45 05/06/18 11:45 0.5 MG Vital Signs/I&O 05/06/18 05/06/18 10:12 12:09 Temp 100.0 Pulse 120 120 Resp 18 18 B/P (MAP) 124/60 (81) 100/66 Pulse Ox 98 Capillary Refill : Diagnostic Imaging Diagonstic Imaging: Xray Plain Films/CT/US/NM/MRI: chest Comments NAME: JO FLORENCE REC#: [id number] PT STATUS: REG ER : 1935 PHYSICIAN: CUCO BENJAMIN APRN ADMIT DATE: 05/06/18/ER Draft Date of Exam:05/06/18 CHEST 1 VIEW, AP/PA ONLY Indication: Dyspnea, sepsis. Comparison: 02/21/2018. Discussion: Single portable supine view of the chest was obtained. Cardiomegaly is stable. Dextroscoliosis is stable. New mixed interstitial and alveolar opacities are seen concerning for developing heart failure, less likely atypical infection. No pleural fluid or pneumothorax. No osseous abnormality. Impression: 1. Cardiomegaly with new infiltrates as described. Dictated on workstation # [id number] Dict: 05/06/18 1147 Trans: 05/06/18 1150 [facility] [id number] Interpreted by: LUKE BERGERON MD Electronically signed by: Departure Communication (Admissions) Time/Spoke to Admitting Phy: 13:03 /spoke with Dr. Trevino who is on-call for Dr. Hou. We will admit to ICU, consult cardiology. I then spoke with Dr. George from cardiology, agrees to consult. Recommends Lovenox for stroke prophylaxis. 11:15-atrial fibrillation seems to be a new finding. Daughter is unaware of this , she does have a rapid ventricular response with a rate of 1:30 to 140. 5 mg of Cardizem ordered IV, Motrin for fever control which may help with the arrhythmia/tachycardia, and a bolus of fluids. 1302- heart rate is down to 80, sinus rhythm. Lovenox 1 mg/kg ordered here. Cardizem drip stopped, cardizem cd 240mg po to be given, eliquis 5mg po to be given pending her ability to tolerate PO medications. Impression Primary Impression: Atrial fibrillation with rapid ventricular response Disposition: ADMITTED INPATIENT Condition: Stable Admissions Decision to Admit Reason: Admit from ER (General) Decision to Admit/Date: May 06, 2018 Time/Decision to Admit Time: 11:17 Departure-Patient Inst. Referrals: NATE HOU MD (PCP/Family) Primary Care Physician CUCO BENJAMIN APRN May 06, 2018 11:17
[2018-05-06] MEDS: LORazepam INJ 2 MG/ML (ATIVAN) VIAL IVP PRN ×2 (11:22→11:45)
[2018-05-06 11:24] LABS: ALBUMIN 2.5 GM/DL (3.2-4.5); BILIRUBIN,TOTAL 0.3 MG/DL (0.1-1.0); CALCIUM 8.4 MG/DL (8.5-10.1); CREATININE SERUM 1.09 MG/DL (0.60-1.30); POTASSIUM 3.3 MMOL/L (3.6-5.0); TOTAL PROTEIN 5.5 GM/DL (6.4-8.2)
[2018-05-06] MEDS ORDERED: ACETAMINOPHEN 650 MG SUPP (TYLENOL) PR ONE (11:30)
[2018-05-06] MEDS ORDERED: LORazepam INJ 2 MG/ML (ATIVAN) VIAL IVP PRN (11:45)
--- NOTE | 2018-05-06 11:50 | Diagnostic Imaging Report ---
Indication: Dyspnea, sepsis. Comparison: 02/21/2018. Discussion: Single portable supine view of the chest was obtained. Cardiomegaly is stable. Dextroscoliosis is stable. New mixed interstitial and alveolar opacities are seen concerning for developing heart failure, less likely atypical infection. No pleural fluid or pneumothorax. No osseous abnormality. Impression: 1. Cardiomegaly with new infiltrates as described. Dictated by: Dictated on workstation # [id number]
[2018-05-06 11:57] LABS: BILIRUBIN,URINE 1+ (NEGATIVE); CLARITY,URINE SLIGHTLY CLOUDY; COLOR,URINE YELLOW; GLUCOSE, URINE (UA) NEGATIVE (NEGATIVE); KETONES,URINE 1+ (NEGATIVE); LEUKOCYTE ESTERASE ,URINE 1+ (NEGATIVE); NITRITE,URINE NEGATIVE (NEGATIVE); PH,URINE 5 (5-9); PROTEIN,URINE 2+ (NEGATIVE); UROBILINOGEN,URINE 4 MG/DL (NORMAL)
[2018-05-06] MEDS ORDERED: DILTIAZEM IV FOR DRIP 125 MG in NS (IVPB) 100 ML IV SCH (12:00)
[2018-05-06 12:10] LABS: RBC,URINE RARE /HPF
[2018-05-06 12:11] LABS: BACTERIA,URINE LARGE /HPF
[2018-05-06] MEDS ORDERED: ENOXAPARIN 80 MG/0.8 ML (LOVENOX) SYR SC ONE (13:00)
[2018-05-06] MEDS ORDERED: DILTIAZEM 240 MG (CARDIZEM CD) CAP PO ONE (13:15)
[2018-05-06] MEDS ORDERED: APIXABAN 5 MG (ELIQUIS) TABLET PO ONE (13:15)
--- OUTSIDE RECORDS SUMMARY | 2018-05-06 13:57 | XMS REPORT | Continuity of Care Document ---
Author Author [facility] Address Unknown Phone Unavailable Allergies Active Description Code Type Severity Reaction Onset Reported/Identified Relationship to Patient Clinical Status Yes NO KNOWN DRUG ALLERGIES NO KNOWN DRUG ALLERG UNKNOWN Yes NO KNOWN DRUG ALLERGIES UNKNOWN NO KNOWN DRUG ALLERG Yes No Known Drug Allergies [id number] Drug Allergy Unknown N/A 03/07/2016 Medications Medication [...] PRN TID CHLORASEPTIC/HALLS FRANCIS/DROP TAB 0 (SORETHROAT FRANCIS/COUGH DROP) LOZENGE 10/08/2016 10/18/2016 PRN Q2H SIMVASTATIN [...] MD E000.9 EXT CAUSE STATUS NOS 03/26/2013 NATE HOU MD E001.0 ACTIV-WALK/AUGUST/HIKE 03/26/2013 NATE HOU [...] M19.042 PRIMARY OSTEOARTHRITIS, LEFT HAND 03/07/2016 JOSÉ HEAOTN, MICHAEL T Ot M79.89 OTHER SPECIFIED SOFT [...] UNSPECIFIED 10/03/2016 AZALIA SPEARS F01.51 10/03/2016 AZALIA SPEARS I10 ESSENTIAL (PRIMARY) HYPERTENSION 10/03/2016 AZALIA SPEARS I25.10 ATHSCL HEART DISEASE OF [place] CORONARY ARTERY W/O ANG PCTRS 10/03/2016 AZALIA [...] HYPERTENSIVE HEART DISEASE WITH HEART FA 10/25/2016 NATE HOU MD Ot I50.9 HEART FAILURE, UNSPECIFIED [...] DELTA W E78.5 HYPERLIPIDEMIA, UNSPECIFIED 02/09/2018 JESSICA DELAT W F22 DELUSIONAL DISORDERS 02/09/2018 JESSICA DELTA [...] IN OTH NON-INSTITUTIONAL RESID 02/10/2018 Ot 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 02/10/2018 Ot Z79.82 ALF ( CURRENT) USE OF ASPIRIN 02/21/2018 Ot E03.9 HYPOTHYROIDISM, UNSPECIFIED 02/21/2018 Ot E78.00 PURE HYPERCHOLESTEROLEMIA, UNSPECIFIED 02/21/2018 Ot F02.80 DEMENTIA IN [facility] DISEASES CLASSD ELSWHR W 02/21/2018 Ot F32.9 [...] INITIAL 02/21/[address] [facility]F PL[facility] 02/21/2018 Ot Z79.82 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 02/23/2018 Ot E03.9 HYPOTHYROIDISM, UNSPECIFIED 02/23/2018 Ot E78.00 PURE HYPERCHOLESTEROLEMIA, UNSPECIFIED 02/23/2018 Ot F02.80 DEMENTIA IN [facility] DISEASES CLASSD ELSWHR W 02/23/2018 Ot F32.9 [...] INITIAL 02/23/[address] SNF PLACE 02/23/2018 Ot Z79.82 ALF ( CURRENT) USE OF ASPIRIN 05/06/2018 NATE HOU MD Ot 825.25 FX METATARSAL-CLOSED 05/06/2018 NATE HOU MD Ot E000.8 OTHER EXTERNAL CAUSE STATUS 05/06/2018 NATE HOU MD Ot E849.0 ACCIDENT IN HOME 05/06/2018 NATE HOU MD Ot E888.9 FALL NOS 05/06/2018 NATE HOU MD Ot V15.51 PERSONAL HISTORY OF TRAUMATIC FRACTURE 05/06/2018 NATE HOU MD Ot V67.9 FOLLOW-UP EXAM NOS 05/06/2018 NATE HOU MD Ot 715.32 LOC OSTEOARTH NOS-UP/ARM 05/06/2018 NATE HOU MD Ot 715.33 LOC OSTEOART NOS-FOREARM 05/06/2018 NATE HOU MD Ot 729.5 PAIN IN LIMB 05/06/2018 NATE HOU MD Ot E000.8 OTHER EXTERNAL CAUSE STATUS 05/06/2018 NATE HOU MD Ot E001.0 ACTIVITIES INVOLVING WALKING, MARCHING A 05/06/2018 NATE HOU MD Ot E888.9 FALL NOS 05/06/2018 NATE HOU MD Ot N64.4 MASTODYNIA 05/06/2018 NATE HOU MD Ot 825.25 FX METATARSAL-CLOSED 05/06/2018 NATE HOU MD Ot E000.8 OTHER EXTERNAL CAUSE STATUS 05/06/2018 NATE HOU MD Ot E849.0 ACCIDENT IN HOME 05/06/2018 NATE HOU MD Ot E888.9 FALL NOS 05/06/2018 NATE HOU MD Ot V15.51 PERSONAL HISTORY OF TRAUMATIC FRACTURE 05/06/2018 NATE HOU MD Ot V67.9 FOLLOW-UP EXAM NOS 05/06/2018 NATE HOU MD Ot 715.32 LOC OSTEOARTH NOS-UP/ARM 05/06/2018 NATE HOU MD Ot 715.33 LOC OSTEOART NOS-FOREARM 05/06/2018 NATE HOU MD Ot 729.5 PAIN IN LIMB 05/06/2018 NATE HOU MD Ot E000.8 OTHER EXTERNAL CAUSE STATUS 05/06/2018 NATE HOU MD Ot E001.0 ACTIVITIES INVOLVING WALKING, MARCHING A 05/06/2018 NATE HOU MD Ot E888.9 FALL NOS 05/06/2018 NATE HOU MD Ot N64.4 MASTODYNIA Procedures Code [place] [address] MRI NECK SPINE W/O DYE STEPHAN TSANG MDO C 07/23/2009 66449 ROUTINE VENIPUNCTURE TABATHA TSANG MDWALDO C 07/06/2010 06278 CHEST X-RAY TABATHA TSANG MDWALDO C 07/06/2010 41290 COMPLETE CBC W/AUTO DIFF WBC TABATHA TSANG MDWALDO C 07/06/2010 31919 MYCOPLASMA ANTIBODY TRINH HEATON MOON C 07/06/2010 19101 ROUTINE VENIPUNCTURE TABATHA TSANG MDWALDO C 02/17/2011 85207 COMPREHEN METABOLIC PANEL MOON TSANG MD C 02/17/2011 59191 COMPLETE CBC W/AUTO DIFF WBC MOON TSANG MD C 02/17/2011 49554 COMP SCREEN MAMMOGRAM ADD- ON TABATHA TSANG MDWALDO C 03/25/2011 48555 MAMMOGRAM, SCREENING TABATHA TSANG MDWALDO C 03/25/2011 88432 ROUTINE VENIPUNCTURE MOON TSANG MD C 06/01/2011 24530 COMPREHEN METABOLIC PANEL TABATHA TSANG MDWALDO C 06/01/2011 70512 ASSAY OF TOTAL THYROXINE STEPHAN TSANG MDO C 06/01/2011 99806 ASSAY THYROID STIM HORMONE MOON TSANG MD C 06/01/2011 09545 COMPLETE CBC W/AUTO DIFF WBC TABATHA TSANG MDWALDO C 06/01/2011 63550 ROUTINE VENIPUNCTURE STEPHAN TSANG MDO C 12/22/2011 85058 COMPREHEN METABOLIC PANEL TRINH HEATON, MOON C 12/22/2011 87532 ASSAY OF FREE THYROXINE TRINH HEATON, [facility] 12/22/2011 71518 ASSAY THYROID STIM HORMONE TRINH HEATON, MOON C 12/22/2011 72642 COMPLETE CBC W/AUTO DIFF WBC TRINH HEATON, MOON C 12/22/2011 52975 ROUTINE VENIPUNCTURE ANTIONETTE HEATON, [facility] 02/22/2012 67006 COMPREHEN METABOLIC PANEL ANTIONETTE HEATON, [facility] 02/22/2012 21428 LIPID PANEL ANTIONETTE HEATON, [facility] 02/22/2012 74599 URINALYSIS, AUTO W/SCOPE ANTIONETTE HEATON, [facility] 02/22/2012 44150 ASSAY, TRIIODOTHYRONINE (T3 ) ANTIONETTE HEATON, [facility] 02/22/2012 79731 ASSAY OF BLOOD/URIC ACID ANTIONETTE HEATON, [facility] 02/22/2012 00076 COMPLETE CBC W/AUTO DIFF WBC ANTIONETTE HEATON, [facility] 02/22/2012 59866 RHEUMATOID FACTOR, QUANT ANTIONETTE HEATON, [facility] 02/22/2012 20150 URINE CULTURE/COLONY COUNT ANTIONETTE HEATON, [facility] 02/22/2012 37946 EXTRACRANIAL STUDY ANTIONETTE HEATON, [facility] 02/28/2012 27555 VITAMIN B-12 ANTIONETTE HEATON, [facility] 03/01/2012 88030 ASSAY OF FREE THYROXINE ANTIONETTE HEATON, [facility] 03/01/2012 69056 ASSAY THYROID STIM HORMONE ANTIONETTE HEATON, [facility] 03/01/2012 33723 COMPREHEN METABOLIC PANEL ANTIONETTE HEATON, [facility] 09/17/2012 58280 ASSAY THYROID STIM HORMONE ANTIONETTE HEATON, [facility] 09/17/2012 96693 COMPLETE CBC W/AUTO DIFF WBC ANTIONETTE HEATON, NATE A 09/17/2012 46928 RBC SED RATE, NONAUTOMATED ANTIONETTE HEATON, [facility] 09/17/2012 72724 ROUTINE VENIPUNCTURE TRINH HEATON, MOON C 10/29/2012 53732 COMPREHEN METABOLIC PANEL MOON TSANG MD C 10/29/2012 05186 COMPLETE CBC W/AUTO DIFF WBC TRINH HEATON, MOON C 10/29/2012 18198 X-RAY EXAM OF FOOT VANESA DUBON MD 12/12/2012 90971 ASSAY OF FREE THYROXINE ANTIONETTE HEATON NATE A 12/20/2012 02457 ASSAY THYROID STIM HORMONE ANTIONETTE HEATON NATE A 12/20/2012 57055 X-RAY EXAM OF FOOT ANTIONETTE HEATON, NATE A 01/08/2013 64032 X-RAY EXAM OF FOOT ANTIONETTE HEATON, NATE A 02/26/2013 53182 X-RAY EXAM OF FOOT ANTIONETTE HEATON, NATE A 03/26/2013 22247 URINALYSIS, AUTO W/SCOPE ANTIONETTE HEATON, NATE A 04/01/2014 20041 URINE CULTURE/COLONY COUNT ANTIONETTE HEATON, NATE A 04/01/2014 80967 X-RAY EXAM OF SHOULDER KEATON YIP MD 05/06/2014 45720 COMPUTER DX MAMMOGRAM ADD- ON ANTIONETTE HEATON NATE A 05/14/2014 79722 MAMMOGRAM, BOTH BREASTS ANTIONETTE HEATON, NATE A 05/14/2014 81217 COMPUTER DX MAMMOGRAM ADD- ON ANTIONETTE HEATON NATE Sonny 05/14/2014 27399 MAMMOGRAM, BOTH BREASTS ANTIONETTE HEATON, NATE Sonny 05/14/2014 70293 PT RE-EVALUATION KEATON YIP MD 05/14/2014 39882 ULTRASOUND THERAPY KEATON YIP MD 05/14/2014 G8984 CARRY CURRENT STATUS KEAOTN YIP MD 05/14/2014 G8985 CARRY GOAL STATUS KEATON YIP MD 05/14/2014 67652 ULTRASOUND THERAPY KEATON YIP MD 05/16/2014 20961 X-RAY EXAM OF FOOT ANTIONETTE HEATON, NATE A 06/17/2014 Results Test Result Range [facility] - 09/17/12 13:56 Osmo Calculated 276 MOSM [...] 230 10^3u 142-424 MPV 9.4 FL 9.4-12.4 [place] # 0.54 10^3u 0.0-1.0 RBC 3.43 10^6u 4.04-6.13 [place] % 10.5 % 0-12 RDW 12.7 % [...] 223 10^3u 142-424 MPV 9.8 FL 9.4-12.4 [place] # 0.59 10^3u 0.0-1.0 RBC 3.25 10^6u 4.04-6.13 [place] % 11.3 % 0-12 RDW 13.0 % [...] Urobilinogen 0.2 0.2-1.0 Urine RBC NONESEEN Specific [place] 1.025 1.010-1.020 Urine WBC N6-10 Urine Bacteria [...] 5-8.5 Urine-Protein Negative Negative Urine-RBC 2-5/HPF Urine-Specific [place] 1.020 1.000-1.030 Urine-WBC 10-20/HPF Urobilinogen 0.2 0.2-1.0 MRSA Screen - 10/03/16 14:32 FINAL CULTURE RESULTS MRSA Negative Nasal Culture MEDIA PLATED Setup at 15:10 on 10/03/2016 Urine Culture - 10/03/16 18:37 FINAL CULTURE RESULTS 50,000-100,000 Gram Positive Mixed Wendy [id number] Further Workup done MEDIA PLATED Setup at [...] Manual blood segmented neutrophils/100 leukocytes 65 % NRG Blood band neutrophils/100 leukocytes 2 % NRG Manual blood lymphocytes/100 leukocytes 20 % NRG Manual eosinophils/100 leukocytes in nose 2 % NRG Blood stomatocytes detection by light microscopy SLIGHT NRG Comprehensive metabolic panel - 10/23/16 05:37 Serum [...] STAIN RESULT MODERATE # GRAM POSITIVE COCCI [facility] Bacteria identification in wound by culture - 10/24/16 11:00 Bacteria identification in wound by culture [id number] [facility] FREE TEXT EXTERNAL SENSITIVITY REPORTED 10/26 07:01 NRG QUANTITY OF GROWTH Scant Growth [facility] Bacterial susceptibility panel - 10/24/16 11:00 Oxacillin [...] 5-8.5 Urine-Protein Negative Negative Urine-RBC 0-2/HPF Urine-Specific [place] 1.015 1.000-1.030 Urine-WBC 5-10/HPF Urobilinogen 0.2 0.2-1.0 [...] 5-8.5 Urine-Protein Negative Negative Urine-RBC 0-2/HPF Urine-Specific [place] 1.015 1.000-1.030 Urine-WBC Negative Urobilinogen 0.2 0.2-1.0 [...] (T4) free measurement (mass/volume) 0.98 ng/dL 0.70-1.48 [id number] - 02/10/18 04:09 [id number] 4.9 ug/mL 50.0-100.0 Complete urinalysis with reflex [...] urine sediment by light microscopy 0-2 NRG Complete blood count (CBC) with automated white blood cell (WBC) differential - 05/06/18 10:45 Blood leukocytes automated count (number/volume) 7.1 10*3/uL 4.3-11.0 Blood erythrocytes automated count (number/volume) 2.54 10*6/uL 4.35-5.85 Venous blood hemoglobin measurement (mass/volume) 8.1 g/dL 11.5-16.0 Blood hematocrit (volume fraction) 26 % 35-52 Automated erythrocyte mean corpuscular volume 102 [foz_us] 80-99 Automated erythrocyte mean corpuscular hemoglobin (mass per erythrocyte) 32 pg 25-34 Automated erythrocyte mean corpuscular hemoglobin concentration measurement ( mass/volume) 31 g/dL 32-36 Automated erythrocyte distribution width ratio 12.8 % 10.0-14.5 Automated blood platelet count (count/volume) 308 10*3/uL 130-400 Automated blood platelet mean volume measurement 8.5 [foz_us] 7.4-10.4 Automated blood neutrophils/100 leukocytes 70 % 42-75 Automated blood lymphocytes/100 leukocytes 17 % 12-44 Blood monocytes/100 leukocytes 11 % 0-12 Automated blood eosinophils/100 leukocytes 1 % 0-10 Automated blood basophils/100 leukocytes 0 % 0-10 Blood neutrophils automated count (number/volume) 5.0 10*3 1.8-7.8 Blood lymphocytes automated count (number/volume) 1.2 10*3 1.0-4.0 Blood monocytes automated count (number/volume) 0.8 10*3 0.0-1.0 Automated eosinophil count 0.1 10*3/uL 0.0-0.3 Automated blood basophil count (count/volume) 0.0 10*3/uL 0.0-0.1 Comprehensive metabolic panel - 05/06/18 10:45 Serum or plasma sodium measurement (moles/volume) 148 mmol/L 135-145 Serum or plasma potassium measurement (moles/volume) 3.3 mmol/L 3.6-5.0 Serum or plasma chloride measurement (moles/volume) 111 mmol/L 98-107 Carbon dioxide 24 mmol/L 21-32 Serum or plasma anion gap determination (moles/volume) 13 mmol/L 5-14 Serum or plasma urea nitrogen measurement (mass/volume) 43 mg/dL 7-18 Serum or plasma creatinine measurement (mass/volume) 1.09 mg/dL 0.60-1.30 Serum or plasma urea nitrogen/creatinine mass ratio 39 NRG Serum or plasma creatinine measurement with calculation of estimated glomerular filtration rate 48 NRG Serum or plasma glucose measurement (mass/volume) 96 mg/dL 70-105 Serum or plasma calcium measurement (mass/volume) 8.4 mg/dL 8.5-10.1 Serum or plasma total bilirubin measurement (mass/volume) 0.3 mg/dL 0.1-1.0 Serum or plasma alkaline phosphatase measurement (enzymatic activity/volume) 64 U/L 40-136 Serum or plasma aspartate aminotransferase measurement (enzymatic activity/ volume) 19 U/L 5-34 Serum or plasma alanine aminotransferase measurement (enzymatic activity/volume ) 10 U/L 0-55 Serum or plasma protein measurement (mass/volume) 5.5 g/dL 6.4-8.2 Serum or plasma albumin measurement (mass/volume) 2.5 g/dL 3.2-4.5 CALCIUM CORRECTED 9.6 mg/dL 8.5-10.1 Blood lactic acid measurement (moles/volume) - 05/06/18 10:45 Blood lactic acid measurement (moles/volume) 1.03 mmol/L 0.50-2.00 Serum or plasma troponin i.cardiac measurement (mass/volume) - 05/06/18 10:45 Serum or plasma troponin i.cardiac measurement (mass/volume) < ng/ mL <0.30 Serum or plasma lithium measurement (moles/volume) - 05/06/18 10:45 BNP level 958.5 pg/mL <100.0 Complete urinalysis with reflex to culture - 05/06/18 11:53 Urine color determination YELLOW NRG Urine clarity determination SLIGHTLY CLOUDY NRG Urine pH measurement by test strip 5 5-9 Specific gravity of urine by test strip 1.025 1.016- 1.022 Urine protein assay by test strip, semi-quantitative 2+ NEGATIVE Urine glucose detection by automated test strip NEGATIVE NEGATIVE Erythrocytes detection in urine sediment by light microscopy 1+ NEGATIVE Urine ketones detection by automated test strip 1+ NEGATIVE Urine nitrite detection by test strip NEGATIVE NEGATIVE Urine total bilirubin detection by test strip 1+ NEGATIVE Urine urobilinogen measurement by automated test strip (mass/volume) 4 mg/dL NORMAL Urine leukocyte esterase detection by dipstick 1+ NEGATIVE Automated urine sediment erythrocyte count by microscopy (number/high power field) RARE NRG Automated urine sediment leukocyte count by microscopy (number/high power field ) [HPF] NRG Bacteria detection in urine sediment by light microscopy LARGE NRG Crystals detection in urine sediment by light microscopy NONE NRG Casts detection in urine sediment by light microscopy NONE NRG Mucus detection in urine sediment by light microscopy LARGE NRG Complete urinalysis with reflex to culture YES NRG Encounters ACCT No. Visit Date/Time Discharge Status Pt. Type Provider Facility Loc./Unit Complaint [id number] 06/17/2014 11:34:00 06/17/2014 11:34:00 DIS Outpatient ANTIONETTE HEATON, [facility] OTHER [id number] 06/02/2014 00:01:00 06/02/2014 13:51:00 DIS Outpatient PHI HEATON, [facility] OTHER [id number] 05/14/2014 14:41:00 06/01/2014 23:59:00 DIS Outpatient PHI HEATON, [facility] OTHER [id number] 05/14/2014 11:16:00 05/14/2014 11:16:00 DIS Outpatient ANTIONETTE HEATON, [facility] OTHER [id number] 05/06/2014 11:53:00 05/06/2014 11:53:00 DIS Outpatient PHI HEATON, [facility] OTHER [id number] 04/01/2014 13:18:00 04/01/2014 13:18:00 DIS Outpatient ANTIONETTE HEATON, [facility] [id number] 03/26/2013 13:58:00 03/26/2013 13:58:00 DIS Outpatient ANTIONETTE HEATON, [facility] OTHER [id number] 02/26/2013 09:43:00 02/26/2013 09:43:00 DIS Outpatient ANTIONETTE HEATON, [facility] OTHER [id number] 01/08/2013 10:48:00 01/08/2013 10:48:00 DIS Outpatient ANTIONETTE HEATON, [facility] OTHER [id number] 12/20/2012 09:58:00 12/20/2012 09:58:00 DIS Outpatient ANTIONETTE HEATON, [facility] [id number] 12/12/2012 09:41:00 12/12/2012 09:41:00 DIS Outpatient JAGDISH HEATON, [facility] OTHER [id number] 10/29/2012 12:17:00 10/29/2012 12:17:00 DIS Outpatient TRINH HEATON, [facility] OTHER [id number] 09/17/2012 13:49:00 09/17/2012 13:49:00 DIS Outpatient NATE HOU MD [facility] [id number] 03/01/2012 10:49:00 Document Registration [id number] 02/28/2012 10:46:00 Document Registration [id number] 02/22/2012 09:40:00 Document Registration [id number] 12/22/2011 12:25:00 Document Registration [id number] 06/01/2011 12:03:00 Document Registration [id number] 03/25/2011 09:36:00 Document Registration [id number] 02/17/2011 11:59:00 Document Registration [id number] 07/06/2010 15:11:00 Document Registration [id number] 07/23/2009 07:32:00 Document Registration [id number] 06/17/2014 23:42:26 ACT Document Registration [id number] 01/25/2018 12:59:00 02/09/2018 09:15:00 [id number] 10/03/2016 14:09:00 10/13/2016 13:10:00 DIS Inpatient [facility] SINA [id number] 10/03/2016 15:52:31 Document Registration [id number] 02/07/2017 20:55:56 02/07/2017 23:59:59 CLS Outpatient [id number] 10/22/2016 11:05:00 10/25/2016 11:33:00 DIS Inpatient NATE HOU MD [facility] 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 [id number] 03/07/2016 07:31:00 03/07/2016 09:39:00 DIS Emergency JOSÉ HEATON, MICHAEL Bermeo [facility] ER SWOLLEN LEFT INDEX FINGER [id number] 04/24/2015 09:03:00 04/24/2015 23:59:59 CLS Outpatient NATE HOU MD [facility] RAD LEFT BREAST PAIN [id number] 04/17/2014 12:00:00 04/17/2014 23:59:59 CLS Outpatient NATE HOU MD [facility] RAD ARM PAIN,FALL [id number] 02/01/2013 11:46:00 02/01/2013 23:59:59 CLS Outpatient NATE HOU MD [facility] RAD RECENT FX [id number] 11/14/2012 12:36:00 11/14/2012 23:59:59 CLS Outpatient NATE HOU MD [facility] RAD FOOT PAIN,FALL [id number] 05/06/2018 12:55:00 ACT Inpatient NATE HOU MD [facility] ICU NEW ONSET A-FIB RVR [id number] 02/21/2018 16:43:00 Document Registration [id number] 02/10/2018 04:25:00 Document Registration [id number] 04/04/2017 09:00:00 04/04/2017 23:59:59 CLS Outpatient Nate Hou [facility]
[2018-05-06] MEDS: cefTRIAXone 1 GM/NS 50 ML IVPB IV SCH ×2 (15:17)
[2018-05-06] MEDS ORDERED: RT-ALBUTEROL SULF 2.5 MG/3 ML PRE-MIX VIAL INH PRN (15:30)
--- NOTE | 2018-05-06 18:08 | Consultation-Cardiology ---
HPI-Cardiology Cardiology Consultation: Date of Consultation 05/06/18 Time Seen by a Provider: 17:30 Date of Admission Attending Physician Martha Hou MD Admitting Physician Martha Hou MD Consulting Physician JORGE RUVALCABA MD, MA, FACP, FACC, FSCAI, CCDS Physician requesting consult: Dr Trevino HPI: Chief Complaint: Reason for consultation: PAF 82 yo woman, resident [place] a local [place], sent [place] today [place] the [place] apparently for worsening health status and UTI. She suffers from dementia and is not able to provide a history. According to the ER physician she had been sent for gen weakness and fevers and suspected UTI/sepsis. She has not been reporting cp or palp or shortness of breath. Has not had syncope She does not answer any questions Review of Systems-Cardiology Review of Systems Constitutional: other (A reliable ROS cannot be obtained because she does not answere any questions (dementia). Whatever could be obtained from sources is described in HPI) NUC-Eyvdsr-Unhwmz Hx Patient Social History Alcohol Use: Denies Use Recreational Drug Use: No 2nd Hand Smoke Exposure: No Recent Foreign Travel: No Recent Infectious Disease Expo: No Hospitalization with Isolation: Denies Physical Abuse Screen: No Sexual Abuse: No Immunizations Up To Date Date of Pneumonia Vaccine: Jul 24, 2016 Date of Influenza Vaccine: Apr 05, 2018 Past Medical History PMH As described under Assessment. Family Medical History Family Medical History: No reported fam h/o early CAD or SCD Allergies and Home Medications Allergies Coded Allergies: No Known Drug Allergies (Unverified , 03/07/16) Home Medications Aspirin 325 Mg Tablet, 325 MG PO DAILY@0900 Prescribed by: GABRIELLE ALEJO on 10/25/16 1035 Atenolol 100 Mg Tablet, 100 MG PO DAILY, (Reported) Atorvastatin Calcium 20 Mg Tablet, 20 MG PO HS Prescribed by: GABRIELLE ALEJO on 10/25/16 1035 Cephalexin 500 Mg Capsule, 500 MG PO TID Prescribed by: MICHAEL GARG on 02/21/181916 Cholecalciferol (Vitamin D3) 2,000 Unit Capsule, 4,000 UNIT PO DAILY, (Reported) TAKES 2 (2,000 UNIT) CAPSULES Citalopram Hydrobromide 20 Mg Tablet, 20 MG PO DAILY, (Reported) Divalproex Sodium 125 Mg Cap.sprink, 125 MG PO TID, (Reported) Fluticasone Propionate 16 Gm [place].susp, 1 SPRAY NSEACH BID, (Reported) Glucosa Levin 2Kcl/Chondroitin Levin 1 Each Capsule, 3 CAP PO DAILY, (Reported) Lactobacillus Acidophilus 1 Each Capsule, 1 CAP PO HS, (Reported) Lactulose 10 Gm/15 Ml Solution, 30 ML PO BID, (Reported) Levothyroxine Sodium 125 Mcg Tablet, 125 MCG PO MoWeFrSa, (Reported) Lorazepam 0.5 Mg Tablet, 0.25 MG PO HS, (Reported) Losartan Potassium 50 Mg Tablet, 50 MG PO DAILY Prescribed by: GABRIELLE ALEJO on 10/25/16 1035 Meloxicam 15 Mg Tablet, 15 MG PO DAILY, (Reported) Memantine HCl 10 Mg Tablet, 10 MG PO BID, (Reported) Mupirocin Calcium 15 Gm Cream..g., 0.5 GM TP BID apply to skin lesion on buttock Prescribed by: GABRIELLE ALEJO on 10/25/16 1035 Rivastigmine 4.6 Mg Patch, 4.6 MG TD DAILY, (Reported) Spironolactone 25 Mg Tablet, 25 MG PO DAILY, (Reported) Sulfamethoxazole/Trimethoprim 1 Each Tablet, 1 EACH PO BID Prescribed by: GABRIELLE ALEJO on 10/25/16 1035 Patient Home Medication List Home Medication List Reviewed: Yes Physical Exam-Cardiology Physical Exam Vital Signs/I&O 05/06/18 05/06/18 05/06/18 05/06/18 10:12 12:09 13:35 14:15 Temp 100.0 99.0 Pulse 120 120 66 59 Resp 18 18 18 22 B/P (MAP) 124/60 (81) 100/66 143/88 (106) 139/62 (87) Pulse Ox 98 97 100 O2 Delivery Nasal Cannula Nasal Cannula O2 Flow Rate 2.00 2.00 05/06/18 05/06/18 05/06/18 05/06/18 14:18 14:30 14:45 15:00 Pulse 58 53 50 Resp 14 20 19 B/P (MAP) 127/49 (75) 112/52 (72) 99/47 (64) Pulse Ox 100 100 100 100 O2 Delivery Nasal Cannula Nasal Cannula Nasal Cannula Room Air O2 Flow Rate 2.00 2.00 2.00 11/4/18 05/06/18 05/06/18 05/06/18 15:13 15:13 15:45 16:00 Pulse 53 Pulse Ox 47 100 86 O2 Delivery Nasal Cannula Room Air Nasal Cannula O2 Flow Rate 2.00 2.00 Capillary Refill : Less Than 3 Seconds Constitutional: other (Thin-appearing, hunched over and lying in a position, does not appear to be in distress, does not answer questions, moans, does not appear oriented) HEENT: PERRL; No xanthelasmas are seen Neck: carotid pulses are 2 + bilaterally, with good upstrokes Respiratory: No accessory muscle use; other (fair to good bilat air entry) Cardiovascular: regular rate-rhythm, S1 and S2, systolic murmur (2/6 MALIK at card base) Gastrointestinal: No tender; soft, guarding, rebound, audible bowel sounds Extremities: other (mod nonpitting edema of the legs); No clubbing, No cyanosis Neurologic/Psychiatric: other (pt unable to cooperate with a neuro exams; seems to move all limbs; does not answer any questions) Skin: No rash on exposed areas, No ulcerations on exposed areas Data Review Labs Laboratory Tests 05/06/18 10:45: White Blood Count 7.1, Red Blood Count 2.54L, Hemoglobin 8.1L, Hematocrit 26L, Mean Corpuscular Volume 102H, Mean Corpuscular Hemoglobin 32, Mean Corpuscular Hemoglobin Concent 31L, Red Cell Distribution Width 12.8, Platelet Count 308, Mean Platelet Volume 8.5, Neutrophils (%) (Auto) 70, Lymphocytes (%) (Auto) 17, Monocytes (%) (Auto) 11, Eosinophils (%) (Auto) 1, Basophils (%) (Auto) 0, Neutrophils # (Auto) 5.0, Lymphocytes # (Auto) 1.2, Monocytes # (Auto) 0.8, Eosinophils # (Auto) 0.1, Basophils # (Auto) 0.0, Sodium Level 148H, Potassium Level 3.3L, Chloride Level 111H, Carbon Dioxide Level 24, Anion Gap 13, Blood Urea Nitrogen 43H, Creatinine 1.09, Estimat Glomerular Filtration Rate 48, BUN/ Creatinine Ratio 39, Glucose Level 96, Lactic Acid Level 1.03, Calcium Level 8.4L, Corrected Calcium 9.6, Total Bilirubin 0.3, Aspartate Amino Transf (AST/ SGOT) 19, Alanine Aminotransferase (ALT/SGPT) 10, Alkaline Phosphatase 64, Troponin I < 0.30, B-Type Natriuretic Peptide 958.5H, Total Protein 5.5L, Albumin 2.5L 05/06/18 11:53: Urine Color YELLOW, Urine Clarity SLIGHTLY CLOUDY, Urine pH 5, Urine Specific [place] 1.025H, Urine Protein 2+H, Urine Glucose (UA) NEGATIVE, Urine Ketones 1+ H, Urine Nitrite NEGATIVE, Urine Bilirubin 1+H, Urine Urobilinogen 4H, Urine Leukocyte Esterase 1+H, Urine RBC (Auto) 1+H, Urine RBC RARE, Urine WBC 5-10H, Urine Crystals NONE, Urine Bacteria LARGEH, Urine Casts NONE, Urine Mucus LARGEH , Urine Other , Urine Culture Indicated YES Laboratory Tests 05/06/18 10:45 A/P-Cardiology Assessment/Admission Diagnosis PAF with RVR (first documented at this admission of 05/06/18). Currently [facility] NS[facility] with suspected sepsis[facility] Marked anemia of undetermined etiology Advanced dementia Discussion and Recomendations * Treated with iv dilt initially. Currently in NSR and on oral dilt * Apixaban if approved by the [facility] (given marked anemia). I personally spoke with Dr Trevino who has approved apixaban * Katt lytes * Monitor labs Clinical Quality Measures DVT/VTE Risk/Contraindication: Risk Factor Score Per Nursin RFS Level Per Nursing on Admit: 4+=Very High JORGE RUVALCABA MD [facility] CCDS May 06, 2018 18:08
[2018-05-06] MEDS ORDERED: KCL 20 MEQ TAB (K-DUR) PO ONE (18:30)
[2018-05-06] MEDS ORDERED: ACETAMINOPHEN 650 MG SUPP (TYLENOL) PR PRN (18:30)
[2018-05-06] MEDS: ACETAMINOPHEN 325 MG TABLET PO PRN (20:44)
[2018-05-07] VITALS: BP 137/57
[2018-05-07 03:42] LABS: BASOPHILS % (AUTO) 0 % (0-10); EOSINOPHILS # (AUTO) 0.2 10^3/uL (0.0-0.3); EOSINOPHILS % (AUTO) 2 % (0-10); HEMATOCRIT 25 % (35-52); HEMOGLOBIN 7.6 G/DL (11.5-16.0); LYMPHOCYTES # (AUTO) 1.2 X 10^3 (1.0-4.0); LYMPHOCYTES % (AUTO) 19 % (12-44); MEAN CORPUSCULAR HEMOGLOBIN 31 PG (25-34); MEAN CORPUSCULAR HGB CONC 30 G/DL (32-36); MEAN CORPUSCULAR VOLUME 104 FL (80-99); MEAN PLATELET VOLUME 8.4 FL (7.4-10.4); MONOCYTES # (AUTO) 0.8 X 10^3 (0.0-1.0); MONOCYTES % (AUTO) 12 % (0-12); NEUTROPHILS # (AUTO) 4.3 X 10^3 (1.8-7.8); NEUTROPHILS % (AUTO) 67 % (42-75); PLATELET COUNT 347 10^3/uL (130-400); RED BLOOD COUNT 2.42 10^6/uL (4.35-5.85); WHITE BLOOD COUNT 6.4 10^3/uL (4.3-11.0)
[2018-05-07 04:00] VITALS: BP 142/59
[2018-05-07 04:09] LABS: BUN/CREATININE RATIO 52; CALCIUM 8.5 MG/DL (8.5-10.1); CARBON DIOXIDE 25 MMOL/L (21-32); CHLORIDE 115 MMOL/L (98-107); CREATININE SERUM 0.83 MG/DL (0.60-1.30); GFR ESTIMATED > 60; GLUCOSE 105 MG/DL (70-105); POTASSIUM 3.7 MMOL/L (3.6-5.0); SODIUM 149 MMOL/L (135-145)
[2018-05-07 08:00] VITALS: BP 150/60
[2018-05-07] MEDS: ACETAMINOPHEN 325 MG TABLET PO PRN (08:06)
[2018-05-07] MEDS: DILTIAZEM 240 MG (CARDIZEM CD) CAP PO SCH (08:06)
[2018-05-07] MEDS: cefTRIAXone 1 GM/NS 50 ML IVPB IV SCH ×2 (08:06)
--- NOTE | 2018-05-07 08:36 | Progress Note-Cardiology ---
Cardiology SOAP Progress Note Subjective: Daughter at the bedside. D/t advanced dementia unable to obtain any information from patient. Appears comfortable Objective: I&O/Vital Signs 05/07/18 05/07/18 05/07/18 05/07/18 01:00 04:00 04:00 07:00 Temp 98.5 Pulse 58 53 61 Resp 16 B/P (MAP) 142/59 (86) Pulse Ox 94 O2 Delivery Room Air Room Air 05/07/18 05/07/18 05/07/18 08:00 08:00 09:00 Pulse 64 Resp 16 B/P (MAP) 150/60 (90) Pulse Ox 96 97 O2 Delivery Nasal Cannula Room Air Room Air 05/07/18 00:00 Intake Total 250 ml Balance 250 ml Weight (Pounds): 144 Weight (Ounces): 8.0 Weight (Calculated Kilograms): 65.200192 Constitutional: other (Thin-appearing; oriented to self only; conversive, but conversation not appropriate to situation or questions) Respiratory: No accessory muscle use; other (fair to good bilat air entry) Cardiovascular: regular rate-rhythm, S1 and S2, systolic murmur (2/6 MALIK at card base) Gastrointestional: No tender; soft, audible bowel sounds Extremities: other (mod nonpitting edema of the legs; improving); No clubbing, No cyanosis Neurologic/Psychiatric: grossly intact (moves extremities; more conversive today; although she is disoriented to place and time) Skin: No rash on exposed areas, No ulcerations on exposed areas Results/Procedures: Labs Laboratory Tests 05/07/18 02:56: White Blood Count 6.4, Red Blood Count 2.42L, Hemoglobin 7.6L, Hematocrit 25L, Mean Corpuscular Volume 104H, Mean Corpuscular Hemoglobin 31, Mean Corpuscular Hemoglobin Concent 30L, Red Cell Distribution Width 13.0, Platelet Count 347, Mean Platelet Volume 8.4, Neutrophils (%) (Auto) 67, Lymphocytes (%) (Auto) 19, Monocytes (%) (Auto) 12, Eosinophils (%) (Auto) 2, Basophils (%) (Auto) 0, Neutrophils # (Auto) 4.3, Lymphocytes # (Auto) 1.2, Monocytes # (Auto) 0.8, Eosinophils # (Auto) 0.2, Basophils # (Auto) 0.0, Sodium Level 149H, Potassium Level 3.7, Chloride Level 115H, Carbon Dioxide Level 25, Anion Gap 9, Blood Urea Nitrogen 43H, Creatinine 0.83, Estimat Glomerular Filtration Rate > 60, BUN /Creatinine Ratio 52, Glucose Level 105, Calcium Level 8.5 Microbiology 05/06/18 Blood Culture - Preliminary, Resulted 05/06/18 Urine Culture - Preliminary, Resulted Strep Species, Gamma-Hemolytic Laboratory Tests 05/06/18 10:45 05/07/18 02:56 A/P: Assessment: PAF with RVR (first documented at this admission of 05/06/18). Currently in NSR UTI with suspected sepsis, managed by the Med ce Marked anemia of undetermined etiology, worsening Advanced dementia Plan: * Maintaining NSR on oral dilt * Apixaban if approved by the [facility] (given marked anemia). Dr. George has personally spoken with Dr Trevino who has approved apixaban * Worsening anemia - management per medical services - consider transfusing * Monitor labs * UTI - management per medical services Physician Assessment Physician Assessment She does not report any symptoms. Appears more alert, but not able to provide any meaningful history. Daughter by bedside Lungs: fair to good air entry Cor: reg with 2/6 MALIK Ext: no c/c/e A&R * As documented in our note above that I updated * Complex management * I spoke with the patient's daughter in detail * I discussed the case with Dr Hou, as well * Dr Hou suspects slow GI bleed as the cause of patient's marked anemia. The pt's fam does not desire any w/u. Thus, continuing OAC for stroke of prophylaxis put pt at risk of potentially life-threatening anemia. Dr Hou has asked for d/c OAC. This appears reasonable. The fam does understand that w/ o OAC the patient's risk of cardioembolic stroke rises manyfold. The fam still wishes to avoid OAC ESTELA MEJIAS May 07, 2018 08:36 JORGE GEORGE MD [facility] CCDS May 07, 2018 12:40
[2018-05-07] MEDS ORDERED: APIXABAN 5 MG (ELIQUIS) TABLET PO SCH (09:00)
--- NOTE | 2018-05-07 09:11 | History & Physicial ---
History of Present Illness History of Present Illness Reason for visit/HPI PT IS AN 82 Y/O FEMALE WHO IS WELL KNOWN TO ME FROM CLINIC. SHE PRESENTED TO THE HOSPITAL ON 05/06/18 WITH CONFUSION, WEAKNESS, AND FOUND TO HAVE ATRIAL FIBRILLATION ON PRESENTATION TO THE EMERGENCY DEPARTMENT. APPARENTLY SHE WAS COMBATIVE AND YELLING OUT IN THE EMERGENCY DEPARTMENT. Date of Admission May 06, 2018 at 12:55 Date Seen by a Provider: May 07, 2018 Time Seen by a Provider: 09:15 I consulted on this patient on 05/07/18 09:11 Attending Physician Nate Hou MD Admitting Physician Nate Hou MD Consult DR. RUVALCABA Allergies and Home Medications Allergies Coded Allergies: No Known Drug Allergies (Unverified , 03/07/16) Home Medications Acetaminophen 325 Mg/Supp.rect Supp.rect, 1 SUPP [place] Q6H PRN for PAIN-MILD, ( Reported) Acetaminophen 500 Mg Tablet, 500 MG PO Q6H PRN for PAIN-MILD, (Reported) Amoxicillin/Potassium Clav 1 Each Tablet, 1 TAB PO BID, (Reported) 7 DAY SUPPLY START DATE 05-04-18 Atenolol 50 Mg Tablet, 50 MG PO DAILY, (Reported) HOLD FOR SBP<100 CALL NURSE HOLD HR<50 Atorvastatin Calcium 20 Mg Tablet, 20 MG PO HS, (Reported) Cholecalciferol (Vitamin D3) 2,000 Unit Capsule, 2,000 UNIT PO DAILY, (Reported) Clopidogrel Bisulfate 75 Mg Tablet, 75 MG PO DAILY, (Reported) Divalproex Sodium 125 Mg Cap.sprink, 250 MG PO QID, (Reported) TAKES 2 (125MG) CAPSULES Donepezil HCl 5 Mg Tablet, 5 MG PO HS, (Reported) Escitalopram Oxalate 10 Mg Tablet, 10 MG PO HS, (Reported) Ferrous Sulfate 142 Mg Tablet.er, 142 MG PO BID, (Reported) DECREASE TO ONCE DAILY STARTING 05-16-18 Fluticasone Propionate 16 Gm [place].susp, 1 SPRAY NS BID, (Reported) Gabapentin 100 Mg Capsule, 100 MG PO TID, (Reported) Glucosamine Sulfate 2Kcl 1,000 Mg Tablet, 2 TAB PO DAILY, (Reported) L. Acidophilus/L.bulgaricus 1 Each Tablet, 1 TAB PO HS, (Reported) L. Acidophilus/L.bulgaricus 1 Each Tablet, 1 TAB PO BID, (Reported) FOR UTI X7 DAYS START DATE 05-04-18 Levothyroxine Sodium 125 Mcg Tablet, 62.5 MCG PO We, (Reported) TAKES 1/2 (125MCG) TABLET Levothyroxine Sodium 125 Mcg Tablet, 125 MCG PO SuMoTuThFrSa, (Reported) Linaclotide 72 Mcg Capsule, 72 MCG PO DAILY, (Reported) Loratadine 10 Mg Tablet, 10 MG PO DAILY, (Reported) Lorazepam 0.5 Mg Tablet, 0.5 MG PO TID, (Reported) Mag Hydrox/Aluminum Hyd/Simeth 355 Ml Oral.susp, 30 ML PO Q12H PRN for DYSPEPSIA , (Reported) Melatonin 10 Mg Tablet.er, 10 MG PO HS, (Reported) Menthol 118 Ml Gel..ml., TP QID, (Reported) APPLY TO KNEES Multivitamin with Minerals 1 Each Tablet, 1 TAB PO DAILY, (Reported) Olanzapine 5 Mg Tablet, 5 MG PO BID, (Reported) Polyethylene Glycol 3350 17 Gm [place].pack, 17 GM PO DAILY, (Reported) Ranitidine HCl 150 Mg Tablet, 150 MG PO DAILY, (Reported) Trolamine Salicylate 85 Gm Cream..g., 0.5 GM TP Q8H PRN for PAIN, (Reported) Patient Home Medication List Home Medication List Reviewed: Yes Past Ycrfkld-Krurgm-Hdqeft Hx Patient Social History Marrital Status: Number of Children: 3 Number of living children: 2 Living Status: LIVES AT [place] Employed/Student: retired Alcohol Use: Denies Use Recreational Drug Use: No 2nd Hand Smoke Exposure: No Physical Abuse Screen: No Sexual Abuse: No Recent Foreign Travel: No Contact w/other who traveled: No Recent Hopitalizations: Yes ([facility]) Recent Infectious Disease Expo: No Immunizations Up To Date Date of Pneumonia Vaccine: Jul 24, 2016 Date of Influenza Vaccine: Apr 05, 2018 Seasonal Allergies Seasonal Allergies: No Surgeries No Respiratory No Cardiovascular Yes ( CHF) High Cholesterol, Hypertension Neurological Yes ([place]) Dementia Reproductive System : No Genitourinary No Gastrointestinal No Musculoskeletal Yes Arthritis, Rheumatoid Arthritis Endocrine History of Endocrine Disorders: Yes Endocrine Disorders: Hypothyroidsim HEENT History of HEENT Disorders: No Loss of Vision: Denies Hearing Impairment: Hard of Hearing Cancer No Psychosocial History of Psychiatric Problem: Yes Behavioral Health Disorders: Anxiety, Depression Reviewed Nursing Assessment Reviewed/Agree w Nursing PMH: Yes Family Medical History Significant Family History: Heart Disease Review of Systems Constitutional: No chills, No fever; malaise, weakness EENTM: dental problems, mouth pain; No hoarseness Respiratory: No cough, No dyspnea on exertion, No short of breath Cardiovascular: No chest pain, No edema Gastrointestinal: No abdominal pain Genitourinary: incontinence Musculoskeletal: muscle weakness Skin: no symptoms reported Psychiatric/Neurological: Anxiety, Depressed, Weakness All Other Systems Reviewed Negative Unless Noted: Yes Physical Exam Vital Signs Vital Signs - First Documented 05/06/18 05/06/18 05/06/18 10:12 12:09 13:35 Temp 100.0 Pulse 120 Resp 18 B/P (MAP) 124/60 (81) Pulse Ox 98 O2 Delivery Nasal Cannula O2 Flow Rate 2.00 Capillary Refill : Less Than 3 Seconds Height, Weight, BMI Height: 5'3.00" Weight: 144lbs. 8.0oz. 65.523037iz; 24.8 BMI Method:Actual General Appearance: No Apparent Distress, WD/WN Eyes: Bilateral Eye Normal Inspection, Bilateral Eye PERRL, Bilateral Eye EOMI HEENT: PERRL/EOMI, Normal ENT Inspection, Pharynx Normal Neck: Full Range of Motion, Non Tender, Supple Respiratory: Chest Non Tender, Lungs Clear, Normal Breath Sounds, No Accessory Muscle Use Cardiovascular: Regular Rate, Rhythm, No Edema, Normal Peripheral Pulses Gastrointestinal: Normal Bowel Sounds, Non Tender, Soft Rectal: Deferred Back: Normal Inspection, No Vertebral Tenderness Extremity: Normal Capillary Refill, Non Tender, No Calf Tenderness, Pedal Edema (TRACE), Other (CHRONIC DEFORMITIES OF FINGERS DUE TO ARTHRITIS) Neurologic/Psychiatric: Alert, Other (ORIENTED TO PERSON, NOT PLACE OR TIME) Skin: Warm/Dry Lymphatic: No Adenopathy Assessment/Plan Assessment and Plan AFIB WITH RVR ANEMIA DEMENTIA URINARY TRACT INFECTION GENERALIZED WEAKNESS ARTHRITIS AFIB WITH RVR - PT ON CARDIZEM - WAS INITIALLY ON A DRIP, TRANSITIONED TO ORAL MEDICATION, DOING WELL AT THIS TIME. SHE WAS STARTED ON ELIQUIS - BUT DUE TO HER HISTORY OF EXTENSIVE BRUISING AND ANEMIA WITH SUSPECTED OCCULT GI BLEEDING ( FAMILY DOES NOT WANT TO INVESTIGATE THIS POSSIBILITY), I HAVE RECOMMENDED THAT WE STOP THE ELIQUIS. ANEMIA - CHECK IRON PANEL, GIVE DOSE OF IV VENOFER TODAY. DEMENTIA - SUPPORTIVE CARE, WAIT ON MEDICATION RECONCILIATION FOR RESTARTING OF HER DEPAKOTE, SEROQUEL. URINARY TRACT INFECTION - WAITING ON CULTURE REPORT - CONTINUE WITH ROCEPHIN GENERALIZED WEAKNESS - WILL START PHYSICAL THERAPY WHEN SHE GOES BACK TO [place] ARTHRITIS - SUPPORTIVE CARE Admission Diagnosis AFIB WITH RVR ANEMIA DEMENTIA URINARY TRACT INFECTION GENERALIZED WEAKNESS ARTHRITIS Admission Status: Inpatient Order (span 2 midnights) Reason for Inpatient Admission: NEEDS TO BE IN HOSPITAL FORMORE THAN TWO MIDNIGHTS FOR UTI WELL STABILIZATION OF HEART RATE FROM NEW ONSET AFIB Clinical Quality Measures DVT/VTE Risk/Contraindication: Risk Factor Score Per Nursin RFS Level Per Nursing on Admit: 4+=Very High NATE HOU MD May 07, 2018 09:11
[2018-05-07] MEDS ORDERED: ACET-2267 PO (09:15)
[2018-05-07] MEDS ORDERED: MELA10TA3 PO (09:15)
[2018-05-07] MEDS ORDERED: IRON SUCROSE 200 MG/10 ML (VENOFER) VIAL IV NR (09:15)
[2018-05-07] MEDS ORDERED: ESCI10TA PO (09:15)
[2018-05-07] MEDS ORDERED: GLUC100016 PO (09:15)
[2018-05-07] MEDS ORDERED: GABA-486 PO (09:15)
[2018-05-07] MEDS ORDERED: ATEN50TA PO (09:15)
[2018-05-07] MEDS ORDERED: POLY17PO6 PO (09:15)
[2018-05-07] MEDS ORDERED: LEVO125T6 PO (09:15)
[2018-05-07] MEDS ORDERED: OLAN5TAB25 PO (09:15)
[2018-05-07] MEDS ORDERED: TROL85CR11 TP (09:15)
[2018-05-07] MEDS ORDERED: ACET325S10 PR (09:15)
[2018-05-07] MEDS ORDERED: AMOX1TAB11 PO (09:15)
[2018-05-07] MEDS ORDERED: ATOR20TA66 PO (09:15)
[2018-05-07] MEDS ORDERED: LINA72CA PO (09:15)
[2018-05-07] MEDS ORDERED: MENT118G TP (09:15)
[2018-05-07] MEDS ORDERED: LORA10TA7 PO (09:15)
[2018-05-07] MEDS ORDERED: DONE5TAB30 PO (09:15)
[2018-05-07] MEDS ORDERED: FERR142T14 PO (09:15)
[2018-05-07] MEDS ORDERED: MAG355OR16 PO (09:15)
[2018-05-07] MEDS ORDERED: MULT-166 PO (09:15)
[2018-05-07] MEDS ORDERED: CLOP75TA28 PO (09:15)
[2018-05-07] MEDS ORDERED: L. A1TAB10 PO ×2 (09:15)
[2018-05-07 16:00] VITALS: BP 155/73
[2018-05-07 20:00] VITALS: BP 148/72
[2018-05-07] MEDS: LORazepam INJ 2 MG/ML (ATIVAN) VIAL IV PRN (20:05)
[2018-05-07 23:50] VITALS: BP 119/61
[2018-05-08 03:50] VITALS: BP 158/59
[2018-05-08] MEDS: LORazepam INJ 2 MG/ML (ATIVAN) VIAL IV PRN ×3 (04:17→18:02)
[2018-05-08 06:42] LABS: HEMOGLOBIN 8.2 G/DL (11.5-16.0); MEAN PLATELET VOLUME 8.3 FL (7.4-10.4); RED BLOOD COUNT 2.6 10^6/uL (4.35-5.85); RED CELL DISTRIBUTION WIDTH 12.7 % (10.0-14.5); WHITE BLOOD COUNT 4.8 10^3/uL (4.3-11.0)
[2018-05-08 06:55] LABS: BUN/CREATININE RATIO 41; CALCIUM 9.1 MG/DL (8.5-10.1); CARBON DIOXIDE 25 MMOL/L (21-32); CHLORIDE 112 MMOL/L (98-107); CREATININE SERUM 0.71 MG/DL (0.60-1.30); GFR ESTIMATED > 60; GLUCOSE 84 MG/DL (70-105); POTASSIUM 3.5 MMOL/L (3.6-5.0); SODIUM 148 MMOL/L (135-145)
[2018-05-08 08:00] VITALS: BP 146/72
--- NOTE | 2018-05-08 09:26 | Progress Note ---
Focused Exam Lactate Level 05/06/18 10:45: Lactic Acid Level 1.03 Objective Exam Last Set of Vital Signs Vital Signs Date Time Temp Pulse Resp B/P (MAP) Pulse Ox O2 Delivery O2 Flow Rate FiO2 05/08/18 03:50 98.2 63 20 158/59 (92) 96 Room Air 05/06/18 21:00 1.00 Capillary Refill : Less Than 3 Seconds I&O Intake and Output 05/08/18 00:00 Intake Total 910 ml Balance 910 ml Intake Oral 910 ml # Voids 4 # Bowel Movements 1 Results Lab Laboratory Tests 05/08/18 05:36: White Blood Count 4.8, Red Blood Count 2.60L, Hemoglobin 8.2L, Hematocrit 27L, Mean Corpuscular Volume 105H, Mean Corpuscular Hemoglobin 32, Mean Corpuscular Hemoglobin Concent 30L, Red Cell Distribution Width 12.7, Platelet Count 406H, Mean Platelet Volume 8.3, Sodium Level 148H, Potassium Level 3.5L, Chloride Level 112H, Carbon Dioxide Level 25, Anion Gap 11, Blood Urea Nitrogen 29H, Creatinine 0.71, Estimat Glomerular Filtration Rate > 60, BUN/Creatinine Ratio 41, Glucose Level 84, Calcium Level 9.1 Microbiology 05/06/18 Blood Culture - Preliminary, Resulted No growth 05/06/18 Urine Culture - Preliminary, Resulted Enterococcus faecalis Assessment/Plan Assessment/Plan Assess & Plan/Chief Complaint AFIB WITH RVR ANEMIA DEMENTIA URINARY TRACT INFECTION GENERALIZED WEAKNESS RA AFIB WITH RVR - PT ON CARDIZEM - WAS INITIALLY ON A DRIP, TRANSITIONED TO ORAL MEDICATION, DOING WELL AT THIS TIME. SHE WAS STARTED ON ELIQUIS - BUT DUE TO HER HISTORY OF EXTENSIVE BRUISING AND ANEMIA WITH SUSPECTED OCCULT GI BLEEDING ( FAMILY DOES NOT WANT TO INVESTIGATE THIS POSSIBILITY), I HAVE RECOMMENDED THAT WE STOP THE ELIQUIS. ANEMIA - CHECK IRON PANEL, GAVE DOSE OF IV VENOFER ON MONDAY - AND WILL THEN GET ANOTHER DOSE TOMORROW. DEMENTIA - SUPPORTIVE CARE, WAIT ON MEDICATION RECONCILIATION FOR RESTARTING OF HER DEPAKOTE, SEROQUEL. URINARY TRACT INFECTION - ENTEROCOCCUS - WAITING ON SENSITIVITY REPORT - CONTINUE WITH ROCEPHIN GENERALIZED WEAKNESS - WILL START PHYSICAL THERAPY WHEN SHE GOES BACK TO [place] ARTHRITIS - SUPPORTIVE CARE Clinical Quality Measures Admission Status Admission Dx AFIB WITH RVR ANEMIA DEMENTIA URINARY TRACT INFECTION GENERALIZED WEAKNESS RA DVT/VTE Risk/Contraindication: Risk Factor Score Per Nursin RFS Level Per Nursing on Admit: 4+=Very High NATE ADAN MD May 08, 2018 09:26
[2018-05-08] MEDS ORDERED: LEVOTHYROXINE 125 MCG (LEVOTHROID) TABLET PO SCH (09:30)
[2018-05-08] MEDS: 1/2 NS W/KCL 20 MEQ/L 1,000 ML IV SCH ×2 (09:39→23:19)
[2018-05-08] MEDS: DILTIAZEM 240 MG (CARDIZEM CD) CAP PO SCH (09:40)
[2018-05-08] MEDS: cefTRIAXone 1 GM/NS 50 ML IVPB IV SCH ×2 (09:40)
[2018-05-08] MEDS: ACETAMINOPHEN 325 MG TABLET PO PRN (09:41)
--- NOTE | 2018-05-08 10:10 | Progress Note-Cardiology ---
Cardiology SOAP Progress Note Subjective: Confused this morning. Unable to obtain any information from pt Objective: I&O/Vital Signs 05/08/18 05/08/18 05/08/18 05/08/18 03:50 07:00 08:00 08:15 Temp 98.2 98.6 Pulse 63 61 62 Resp 20 16 B/P (MAP) 158/59 (92) 146/72 (96) Pulse Ox 96 94 O2 Delivery Room Air Room Air Room Air 05/08/18 00:00 Intake Total 850 ml Balance 850 ml Weight (Pounds): 138 Weight (Ounces): 14.4 Weight (Calculated Kilograms): 63.758394 Constitutional: other (Thin-appearing; oriented to self only; conversive, but conversation not appropriate to situation or questions) Respiratory: No accessory muscle use; other (fair to good bilat air entry) Cardiovascular: regular rate-rhythm, S1 and S2, systolic murmur (2/6 MALIK at card base) Gastrointestional: No tender; soft, audible bowel sounds Extremities: other (mod nonpitting edema of the legs; improving); No clubbing, No cyanosis Neurologic/Psychiatric: grossly intact (moves extremities; more conversive today; although she is disoriented to place and time) Skin: No rash on exposed areas, No ulcerations on exposed areas Results/Procedures: Labs Laboratory Tests 05/08/18 05:36: White Blood Count 4.8, Red Blood Count 2.60L, Hemoglobin 8.2L, Hematocrit 27L, Mean Corpuscular Volume 105H, Mean Corpuscular Hemoglobin 32, Mean Corpuscular Hemoglobin Concent 30L, Red Cell Distribution Width 12.7, Platelet Count 406H, Mean Platelet Volume 8.3, Sodium Level 148H, Potassium Level 3.5L, Chloride Level 112H, Carbon Dioxide Level 25, Anion Gap 11, Blood Urea Nitrogen 29H, Creatinine 0.71, Estimat Glomerular Filtration Rate > 60, BUN/Creatinine Ratio 41, Glucose Level 84, Calcium Level 9.1 Microbiology 05/06/18 Blood Culture - Preliminary, Resulted No growth 05/06/18 Urine Culture - Final, Complete Enterococcus faecalis A/P: Assessment: PAF with RVR (first documented at this admission of 05/06/18). Currently in NSR UTI with suspected sepsis, managed by the Med Svce Marked anemia of undetermined etiology, worsening Advanced dementia Plan: * Maintaining NSR on oral dilt * Apixaban has been dc'd by medical services d/t pt h/o anemia, suspected GI bleed (for which family desires conservative management) and propensity to bruising - advise consideration of at least low dose ASA for stoke prophylaxis which will not provide protection as well as other OAC, but will provide some protection * Anemia - management per medical services * Monitor labs * UTI - management per medical services Physician Assessment Physician Assessment Unable to provide any meaningful history. Another daughter by bedside today Lungs: fair bilat air entry, prolonged exp phase Cor: irreg Ext: no c/c/e A&R * As documented in our note above that I updated (italics) and as noted below * OAC for stoke prophylaxis is being held due to previously documented reasons and as recommended by Dr Hou. I explained that to patient's daughter who was by her bedside today. She understands and concurs with the plan * Monitor labs ESTELA MEJIAS May 08, 2018 10:10 JORGE RUVALCABA [facility] CCDS May 08, 2018 15:44
[2018-05-08] MEDS ORDERED: ASPIRIN 325 MG (5 GR) TABLET PO ONE (10:15)
[2018-05-08] MEDS ORDERED: DIVALPROX SPRINKLE 125 MG (DEPAKOTE) CAP PO SCH (13:00)
[2018-05-08] MEDS: DIVALPROX SPRINKLE 125 MG (DEPAKOTE) CAP PO SCH ×3 (14:43→21:18)
[2018-05-08 16:10] VITALS: BP 176/67
[2018-05-08] MEDS ORDERED: LACTOBACILLUS ACIDOPHILUS (PROBIOTIC) CAPSULE PO SCH (21:00)
[2018-05-08] MEDS: OLANZapine 5 MG (ZyPREXA) TAB PO SCH (21:18)
[2018-05-08 23:44] VITALS: BP 126/60
[2018-05-09 06:08] LABS: HEMOGLOBIN 8.4 G/DL (11.5-16.0); RED BLOOD COUNT 2.63 10^6/uL (4.35-5.85); RED CELL DISTRIBUTION WIDTH 12.7 % (10.0-14.5); WHITE BLOOD COUNT 6.2 10^3/uL (4.3-11.0)
[2018-05-09 06:41] LABS: ALANINE AMINOTRANSFERASE 8 U/L (0-55); ALBUMIN 2.4 GM/DL (3.2-4.5); ALKALINE PHOSPHATASE 59 U/L (40-136); BILIRUBIN,TOTAL 0.2 MG/DL (0.1-1.0); BUN/CREATININE RATIO 31; CALCIUM 8.9 MG/DL (8.5-10.1); CARBON DIOXIDE 28 MMOL/L (21-32); CHLORIDE 109 MMOL/L (98-107); CREATININE SERUM 0.71 MG/DL (0.60-1.30); GFR ESTIMATED > 60; GLUCOSE 86 MG/DL (70-105); POTASSIUM 4.4 MMOL/L (3.6-5.0); SODIUM 144 MMOL/L (135-145); TOTAL PROTEIN 5.5 GM/DL (6.4-8.2)
[2018-05-09 07:57] VITALS: BP 174/75
[2018-05-09] MEDS ORDERED: AMOX875T2 PO (08:34)
[2018-05-09] MEDS ORDERED: DILT240C97 PO (08:34)
[2018-05-09] MEDS ORDERED: L. A1TAB10 PO (08:34)
--- NOTE | 2018-05-09 08:36 | Discharge Inst-Skilled Nursing ---
Discharge Inst-Skilled NF Patient Instructions Patient Problems: URINARY TRACT INFECTION DEMENTIA ATRIAL FIBRILLATION ANEMIA Consult/Follow Up/Orders Follow Up Appt.: 1 WK WITH [facility] Skilled NF Admit to: [facility] Certification (SNF) I certify that SNF services are required to be given on an inpatient basis because of the above named patient's need for care home care on a continuing basis for the conditions(s) for which he/she was receiving inpatient hospital services prior to his/her transfer to the SNF. [facility] Facility Order: Nursing Services, Physical Therapy-Evaluate & Treat Daily Activity as Tolerated: Yes New & Resume Previous Orders Nate Dennis Ameya May 09, 2018 08:35 Medication List: Active Scripts Active Amoxicillin 875 Mg Tablet 875 Mg PO BID Diltiazem 24Hr Cd (Diltiazem HCl) 240 Mg Cap.er.24h 240 Mg PO DAILY@0900 Lactobacillus Tablet (L. Acidophilus/L.bulgaricus) 1 Each Tablet 1 Tab PO BID 7 Days TAKE WITH ANTIBIOTIC AMOXICILLIN, THEN CONTINUE HS DOSING OF PROBIOTIC - SEE OTHER RX Reported Trolamine Salicylate 85 Gm Cream..g. 0.5 Gm TP Q8H PRN Tylenol Extra Strength (Acetaminophen) 500 Mg Tablet 500 Mg PO Q6H PRN Slow Fe (Ferrous Sulfate) 142 Mg Tablet.er 142 Mg PO BID DECREASE TO ONCE DAILY STARTING 05-16-18 Miralax (Polyethylene Glycol 3350) 17 Gm Powd.pack 17 Gm PO DAILY Clopidogrel (Clopidogrel Bisulfate) 75 Mg Tablet 75 Mg PO DAILY Olanzapine 5 Mg Tablet 5 Mg PO BID Multivitamins with Minerals (Multivitamin with Minerals) 1 Each Tablet 1 Tab PO DAILY Melatonin 10 Mg Tablet.er 10 Mg PO HS Maalox Advanced Suspension (Mag Hydrox/Aluminum Hyd/Simeth) 355 Ml Oral.susp 30 Ml PO Q12H PRN Loratadine 10 Mg Tablet 10 Mg PO DAILY Atorvastatin Calcium 20 Mg Tablet 20 Mg PO HS Linzess (Linaclotide) 72 Mcg Capsule 72 Mcg PO DAILY Lexapro (Escitalopram Oxalate) 10 Mg Tablet 10 Mg PO HS Levothyroxine Sodium 125 Mcg Tablet 125 Mcg PO SUMOTUTHFRSA Glucosamine (Glucosamine Sulfate 2Kcl) 1,000 Mg Tablet 2 Tab PO DAILY Gabapentin 100 Mg Capsule 100 Mg PO TID Donepezil HCl 5 Mg Tablet 5 Mg PO HS Biofreeze (Menthol) 118 Ml Gel..ml. TP QID APPLY TO KNEES Amox Tr-K Clv 500-125 mg Tab (Amoxicillin/Potassium Clav) 1 Each Tablet 1 Tab PO BID 7 Days 7 DAY SUPPLY START DATE 05-04-18 Tylenol Pr (Acetaminophen) 325 Mg/Supp.rect Supp.rect 1 Supp ME Q6H PRN Lactobacillus Tablet (L. Acidophilus/L.bulgaricus) 1 Each Tablet 1 Tab PO HS Atenolol 50 Mg Tablet 50 Mg PO DAILY HOLD FOR SBP<100 CALL NURSE HOLD HR<50 Ranitidine HCl 150 Mg Tablet 150 Mg PO DAILY Vitamin D3 (Cholecalciferol (Vitamin D3)) 2,000 Unit Capsule 2,000 Unit PO DAILY Lorazepam 0.5 Mg Tablet 0.5 Mg PO TID Divalproex Sodium 125 Mg Cap.sprink 250 Mg PO QID TAKES 2 (125MG) CAPSULES Levothyroxine Sodium 125 Mcg Tablet 62.5 Mcg PO WE TAKES 1/2 (125MCG) TABLET Fluticasone Propionate 16 Gm Ossian.susp 1 Ossian NS BID Lab results: Laboratory Tests Test 05/09/18 05:46 Range/Units White Blood Count 6.2 4.3-11.0 10^3/uL Red Blood Count 2.63 L 4.35-5.85 10^6/uL Hemoglobin 8.4 L 11.5-16.0 G/DL Hematocrit 28 L 35-52 % Mean Corpuscular Volume 105 H 80-99 FL Mean Corpuscular Hemoglobin 32 25-34 PG Mean Corpuscular Hemoglobin Concent 30 L 32-36 G/DL Red Cell Distribution Width 12.7 10.0-14.5 % Platelet Count 467 H 130-400 10^3/uL Mean Platelet Volume 8.0 7.4-10.4 FL Sodium Level 144 135-145 MMOL/L Potassium Level 4.4 3.6-5.0 MMOL/L Chloride Level 109 H 98-107 MMOL/L Carbon Dioxide Level 28 21-32 MMOL/L Anion Gap 7 5-14 MMOL/L Blood Urea Nitrogen 22 H 7-18 MG/DL Creatinine 0.71 0.60-1.30 MG/DL Estimat Glomerular Filtration Rate > 60 BUN/Creatinine Ratio 31 Glucose Level 86 70-105 MG/DL Calcium Level 8.9 8.5-10.1 MG/DL Corrected Calcium 10.2 H 8.5-10.1 MG/DL Total Bilirubin 0.2 0.1-1.0 MG/DL Aspartate Amino Transf (AST/SGOT) 23 5-34 U/L Alanine Aminotransferase (ALT/SGPT) 8 0-55 U/L Alkaline Phosphatase 59 40-136 U/L Total Protein 5.5 L 6.4-8.2 GM/DL Albumin 2.4 L 3.2-4.5 GM/DL My orders: Orders - NATE ADAN MD Divalproex Sprinkle (Depakote Sprinkles) (05/08/18 13:00) Levothyroxine Tablet (Synthroid Tablet) (05/09/18 09:30) Levothyroxine Tablet (Synthroid Tablet) (05/08/18 09:30) Citalopram Tablet (Celexa Tablet) (05/08/18 21:00) Lactobacillus Acidophilus Cap (Acidophil (05/08/18 21:00) Olanzapine Tablet (Zyprexa Tablet) (05/08/18 21:00) Famotidine Tablet (Pepcid Tablet) (05/09/18 09:00) Iron Sucrose Injection (Venofer Injectio (05/09/18 09:00) Cbc No Diff (05/09/18 05:00) Comprehensive Metabolic Panel (05/09/18 05:00) 1/2 Ns W/Kcl 20 Meq/L (0.45% Sodium Chlo (05/08/18 09:30) Divalproex Sprinkle (Depakote Sprinkles) (05/08/18 13:00) Attending Discharge Inpt/Inobs (05/09/18 08:24) NATE ADAN MD May 09, 2018 08:36
--- NOTE | 2018-05-09 08:38 | Discharge Summary ---
Diagnosis/Chief Complaint Date of Admission May 06, 2018 at 12:55 Date of Discharge Discharge Date: May 09, 2018 Discharge Time: 1030 Reason Hospital Visit PT IS AN 82 Y/O FEMALE WHO IS WELL KNOWN TO ME FROM CLINIC. SHE PRESENTED TO THE HOSPITAL ON 05/06/18 WITH CONFUSION, WEAKNESS, AND FOUND TO HAVE ATRIAL FIBRILLATION ON PRESENTATION TO THE EMERGENCY DEPARTMENT. APPARENTLY SHE WAS COMBATIVE AND YELLING OUT IN THE EMERGENCY DEPARTMENT. Discharge Summary Discharge Physical Examination Allergies: Coded Allergies: No Known Drug Allergies (Unverified , 03/07/16) Vitals & I&Os Vital Signs Date Time Temp Pulse Resp B/P (MAP) Pulse Ox O2 Delivery O2 Flow Rate FiO2 05/09/18 07:57 97.3 73 20 174/75 (108) 100 Nasal Cannula 3.00 Hospital Course Pending Labs Laboratory Tests 05/09/18 05:46: White Blood Count 6.2, Red Blood Count 2.63, Hemoglobin 8.4, Hematocrit 28, Mean Corpuscular Volume 105, Mean Corpuscular Hemoglobin 32, Mean Corpuscular Hemoglobin Concent 30, Red Cell Distribution Width 12.7, Platelet Count 467, Mean Platelet Volume 8.0, Sodium Level 144, Potassium Level 4.4, Chloride Level 109, Carbon Dioxide Level 28, Anion Gap 7, Blood Urea Nitrogen 22, Creatinine 0.71, Estimat Glomerular Filtration Rate > 60, BUN/Creatinine Ratio 31, Glucose Level 86, Calcium Level 8.9, Corrected Calcium 10.2, Total Bilirubin 0.2, Aspartate Amino Transf (AST/SGOT) 23, Alanine Aminotransferase (ALT/SGPT) 8, Alkaline Phosphatase 59, Total Protein 5.5, Albumin 2.4 Discharge Instructions to patient/family Please see electronic discharge instructions given to patient. Discharge Medications Reviewed and agree with Discharge Medication list on patient's Discharge Instruction sheet Clinical Quality Measures DVT/VTE Risk/Contraindication: Risk Factor Score Per Nursin RFS Level Per Nursing on Admit: 4+=Very High NATE ADAN MD May 09, 2018 08:38
[2018-05-09] MEDS ORDERED: ASPIRIN 325 MG (5 GR) TABLET PO SCH (09:00)
[2018-05-09] MEDS ORDERED: IRON SUCROSE 200 MG/10 ML (VENOFER) VIAL IV ONE (09:00)
[2018-05-09] MEDS ORDERED: FAMOTIDINE 20 MG (PEPCID) TABLET PO SCH (09:00)
[2018-05-09] MEDS ORDERED: LEVOTHYROXINE 125 MCG (LEVOTHROID) TABLET PO SCH (09:30)
--- NOTE | 2018-05-09 09:30 | Progress Note-Cardiology ---
Cardiology SOAP Progress Note Subjective: Denies cp or palp or shortness of breath Objective: I&O/Vital Signs 05/08/18 05/09/18 23:44 07:57 Temp 98.7 97.3 Pulse 53 73 Resp 20 20 B/P (MAP) 126/60 (82) 174/75 (108) Pulse Ox 95 100 O2 Delivery Nasal Cannula Nasal Cannula O2 Flow Rate 3.00 3.00 05/08/18 23:59 Intake Total 1780 ml Balance 1780 ml Weight (Pounds): 147 Weight (Ounces): 14.4 Weight (Calculated Kilograms): [id number] Constitutional: No AAO x 3; other (More alert today; does not appear to be in any distress) Respiratory: No accessory muscle use; other (fair to good bilat air entry) Cardiovascular: regular rate-rhythm, S1 and S2, systolic murmur (2/6 MALIK at card base) Gastrointestional: No tender; soft, audible bowel sounds Extremities: other (mod nonpitting edema of the legs; improving); No clubbing, No cyanosis Neurologic/Psychiatric: grossly intact (moves extremities; more conversive today; although she is disoriented to place and time) Skin: No rash on exposed areas, No ulcerations on exposed areas Results/Procedures: Labs Laboratory Tests 05/09/18 05:46: White Blood Count 6.2, Red Blood Count 2.63L, Hemoglobin 8.4L, Hematocrit 28L, Mean Corpuscular Volume 105H, Mean Corpuscular Hemoglobin 32, Mean Corpuscular Hemoglobin Concent 30L, Red Cell Distribution Width 12.7, Platelet Count 467H, Mean Platelet Volume 8.0, Sodium Level 144, Potassium Level 4.4, Chloride Level 109H, Carbon Dioxide Level 28, Anion Gap 7, Blood Urea Nitrogen 22H, Creatinine 0.71, Estimat Glomerular Filtration Rate > 60, BUN/Creatinine Ratio 31, Glucose Level 86, Calcium Level 8.9, Corrected Calcium 10.2H, Total Bilirubin 0.2, Aspartate Amino Transf (AST/SGOT) 23, Alanine Aminotransferase (ALT/SGPT) 8, Alkaline Phosphatase 59, Total Protein 5.5L, Albumin 2.4L Microbiology 05/06/18 Blood Culture - Preliminary, Resulted No growth 05/06/18 Urine Culture - Final, Complete Enterococcus faecalis Laboratory Tests 05/08/18 05:36 05/09/18 05:46 A/P: Assessment: PAF with RVR (first documented at this admission of 05/06/18). Currently in NSR UTI with suspected sepsis, managed by the Med Svce Marked anemia of undetermined etiology, stable. Dr Hou is suspecting ongoing slow GI bleed for which management plan is conservative only (per fam request) Advanced dementia Plan: * Maintaining NSR on oral dilt * Apixaban has been dc'd by medical services d/t pt h/o anemia, suspected GI bleed (for which family desires conservative management) and propensity to bruising - advise consideration of at least low dose ASA for stoke prophylaxis which will not provide protection as well as other OAC, but will provide some protection * Anemia - management per medical services * Monitor labs * UTI - management per medical services JORGE RUVALCABA MD FACP FAC CCDS May 09, 2018 09:30
[2018-05-09] MEDS: DIVALPROX SPRINKLE 125 MG (DEPAKOTE) CAP PO SCH ×2 (09:32→12:16)
[2018-05-09] MEDS: DILTIAZEM 240 MG (CARDIZEM CD) CAP PO SCH (09:32)
[2018-05-09] MEDS: OLANZapine 5 MG (ZyPREXA) TAB PO SCH (09:32)
[2018-05-09] MEDS: cefTRIAXone 1 GM/NS 50 ML IVPB IV SCH ×2 (09:59)
== END 2018-05-09 13:40 | DRG 309 ==
LOC: EDUNIT# 10:12 → ER 10:12 → ICU 12:55 → 4TH 05-07 10:45
PROVIDERS: ADMIT Internal Medicine; ATTEND Family Medicine
DX: I48.0 Paroxysmal atrial fibrillation (principal); N39.0 Urinary tract infection, site not specified; D50.0 Iron deficiency anemia secondary to blood loss (chronic); R19.5 Other fecal abnormalities; I11.0 Hypertensive heart disease with heart failure; I50.9 Heart failure, unspecified; G30.9 Alzheimer's disease, unspecified; F02.80 Dementia in other diseases classified elsewhere, unspecified severity, without behavioral disturbance, psychotic disturbance, mood disturbance, and anxiety; Z66 Do not resuscitate; M06.9 Rheumatoid arthritis, unspecified; E03.9 Hypothyroidism, unspecified; F41.9 Anxiety disorder, unspecified; F32.9 Major depressive disorder, single episode, unspecified; R53.1 Weakness
CPT/HCPCS: 36415; 51701; 71045; 80048; 80053; 81000; 82728; 83540; 83605; 83880; 84484; 85025; 85027; 87040; 87077; 87088; 87186; 93005; 96361; 96374; 96375

== ENCOUNTER 2018-05-25 07:04 | Emergency (ER) | payer MEDICARE, MEDICAID ==
[~2018-05-25] VITALS: Ht 162.6 cm; Wt 74.8 kg
[~2018-05-25 07:04] MED LIST changes: +ACET-2267 PO; +ACET325S10 PR; +AMOX1TAB11 PO; +AMOX875T2 PO; +ATEN50TA PO; +ATOR20TA66 PO; +CLOP75TA28 PO; +DILT240C97 PO; +DONE5TAB30 PO; +ESCI10TA PO; +FERR142T14 PO; +GABA-486 PO; +GLUC100016 PO; +L. A1TAB10 PO; +LINA72CA PO; +LORA10TA7 PO; +MAG355OR16 PO; +MELA10TA3 PO; +MENT118G TP; +MULT-166 PO; +OLAN5TAB25 PO; +POLY17PO6 PO; +TROL85CR11 TP
[2018-05-25] MEDS ORDERED: NS IV 1000 ML 1,000 ML IV ONE (07:13)
[2018-05-25] MEDS ORDERED: LORazepam INJ 2 MG/ML (ATIVAN) VIAL IVP ONE ×2 (07:15→08:00)
[2018-05-25] MEDS ORDERED: DILTIAZEM 25 MG/5 ML INJ (CARDIZEM) VIAL IVP ONE (07:15)
[2018-05-25] MEDS ORDERED: ACETAMINOPHEN 325 MG SUPP (TYLENOL) PR ONE (07:15)
[2018-05-25] MEDS ORDERED: LEVOFLOXACIN 750 MG/150 ML IV 150 ML IV ONE (07:15)
[2018-05-25] MEDS ORDERED: DILTIAZEM INJECTION 125 MG in NS (IVPB) 100 ML IV SCH (07:15)
[2018-05-25 07:33] LABS: BASOPHILS % (AUTO) 0 % (0-10); EOSINOPHILS # (AUTO) 0.1 10^3/uL (0.0-0.3); EOSINOPHILS % (AUTO) 1 % (0-10); HEMATOCRIT 31 % (35-52); LYMPHOCYTES # (AUTO) 1.6 X 10^3 (1.0-4.0); LYMPHOCYTES % (AUTO) 14 % (12-44); MEAN CORPUSCULAR HEMOGLOBIN 31 PG (25-34); MEAN CORPUSCULAR HGB CONC 30 G/DL (32-36); MEAN CORPUSCULAR VOLUME 105 FL (80-99); MEAN PLATELET VOLUME 8.6 FL (7.4-10.4); MONOCYTES # (AUTO) 0.8 X 10^3 (0.0-1.0); MONOCYTES % (AUTO) 7 % (0-12); NEUTROPHILS # (AUTO) 8.7 X 10^3 (1.8-7.8); NEUTROPHILS % (AUTO) 78 % (42-75); PLATELET COUNT 390 10^3/uL (130-400); RED CELL DISTRIBUTION WIDTH 13.6 % (10.0-14.5); WHITE BLOOD COUNT 11.2 10^3/uL (4.3-11.0)
[2018-05-25 07:42] LABS: INR 1.4 (0.8-1.4); PROTHROMBIN TIME PATIENT 17.1 SEC (12.2-14.7)
[2018-05-25 07:42] LABS: BILIRUBIN,URINE NEGATIVE (NEGATIVE); CLARITY,URINE SLIGHTLY CLOUDY; COLOR,URINE YELLOW; GLUCOSE, URINE (UA) NEGATIVE (NEGATIVE); KETONES,URINE 2+ (NEGATIVE); LEUKOCYTE ESTERASE ,URINE 1+ (NEGATIVE); NITRITE,URINE NEGATIVE (NEGATIVE); PH,URINE 6 (5-9); PROTEIN,URINE 1+ (NEGATIVE); UROBILINOGEN,URINE 4 MG/DL (NORMAL)
[2018-05-25 07:51] LABS: ALBUMIN 2.5 GM/DL (3.2-4.5); BILIRUBIN,TOTAL 0.5 MG/DL (0.1-1.0); CALCIUM 8.8 MG/DL (8.5-10.1); CREATININE SERUM 0.95 MG/DL (0.60-1.30); POTASSIUM 4.4 MMOL/L (3.6-5.0); TOTAL PROTEIN 6.5 GM/DL (6.4-8.2)
--- NOTE | 2018-05-25 07:55 | ED General ---
General Chief Complaint: Altered Mental Status Stated Complaint: AMS Source of Information: EMS, Long Term Records, Old Records Exam Limitations: Physical Impairments History of Present Illness Date Seen by Provider: May 25, 2018 Time Seen by Provider: 07:04 Initial Comments This 82-year-old woman presents to the emergency room via EMS from the residential with multiple complaints including fever of 103.3, altered mental status, agitation, and tachycardia. She has a history of recent admission for urinary tract infection and A. fib with RVR on May 06. Records and culture were reviewed. Patient appeared to be in atrial fibrillation with a heart rate in the 170s for EMS. Oxygen saturation was in the low 90s for EMS. They applied O2 by nasal cannula. Patient has advanced dementia and frequently hollers out. Allergies and Home Medications Allergies Coded Allergies: No Known Drug Allergies (Unverified , 03/07/16) Home Medications Acetaminophen 325 Mg/Supp.rect Supp.rect, 1 SUPP ID Q6H PRN for PAIN-MILD, ( Reported) Acetaminophen 500 Mg Tablet, 500 MG PO Q6H PRN for PAIN-MILD, (Reported) Amoxicillin 875 Mg Tablet, 875 MG PO BID Prescribed by: NATE HOU on 05/09/18 0834 Cholecalciferol (Vitamin D3) 2,000 Unit Capsule, 2,000 UNIT PO DAILY, (Reported) Diltiazem HCl 240 Mg Cap.er.24h, 240 MG PO DAILY@0900 Prescribed by: NATE HOU on 05/09/18 0834 Divalproex Sodium 125 Mg Cap.sprink, 250 MG PO QID, (Reported) TAKES 2 (125MG) CAPSULES Escitalopram Oxalate 10 Mg Tablet, 10 MG PO HS, (Reported) Ferrous Sulfate 142 Mg Tablet.er, 142 MG PO BID, (Reported) DECREASE TO ONCE DAILY STARTING 05-16-18 Fluticasone Propionate 16 Gm Trinity.susp, 1 SPRAY NS BID, (Reported) Gabapentin 100 Mg Capsule, 100 MG PO TID, (Reported) Glucosamine Sulfate 2Kcl 1,000 Mg Tablet, 2 TAB PO DAILY, (Reported) L. Acidophilus/L.bulgaricus 1 Each Tablet, 1 TAB PO HS, (Reported) L. Acidophilus/L.bulgaricus 1 Each Tablet, 1 TAB PO BID TAKE WITH ANTIBIOTIC AMOXICILLIN, THEN CONTINUE HS DOSING OF PROBIOTIC - SEE OTHER RX Prescribed by: NATE HOU on 05/09/18 0834 Levothyroxine Sodium 125 Mcg Tablet, 62.5 MCG PO We, (Reported) TAKES 1/2 (125MCG) TABLET Levothyroxine Sodium 125 Mcg Tablet, 125 MCG PO SuMoTuThFrSa, (Reported) Linaclotide 72 Mcg Capsule, 72 MCG PO DAILY, (Reported) Loratadine 10 Mg Tablet, 10 MG PO DAILY, (Reported) Lorazepam 0.5 Mg Tablet, 0.5 MG PO TID, (Reported) Mag Hydrox/Aluminum Hyd/Simeth 355 Ml Oral.susp, 30 ML PO Q12H PRN for DYSPEPSIA , (Reported) Melatonin 10 Mg Tablet.er, 10 MG PO HS, (Reported) Menthol 118 Ml Gel..ml., TP QID, (Reported) APPLY TO KNEES Multivitamin with Minerals 1 Each Tablet, 1 TAB PO DAILY, (Reported) Olanzapine 5 Mg Tablet, 5 MG PO BID, (Reported) Polyethylene Glycol 3350 17 Gm Powd.pack, 17 GM PO DAILY, (Reported) Ranitidine HCl 150 Mg Tablet, 150 MG PO DAILY, (Reported) Trolamine Salicylate 85 Gm Cream..g., 0.5 GM TP Q8H PRN for PAIN, (Reported) Patient Home Medication List Home Medication List Reviewed: Yes Review of Systems Review of Systems Constitutional: see HPI EENTM: other (dry mucous membranes) Respiratory: see HPI Cardiovascular: see HPI Gastrointestinal: no symptoms reported Genitourinary: no symptoms reported Musculoskeletal: no symptoms reported Skin: no symptoms reported Psychiatric/Neurological: See HPI Hematologic/Lymphatic: No Symptoms Reported Immunological/Allergic: no symptoms reported Past Gcrzoph-Ymjuiw-Lrjswq Hx Patient Social History 2nd Hand Smoke Exposure: No Recent Foreign Travel: No Contact w/Someone Who Travel: No Recent Hopitalizations: Yes ([facility]) Immunizations Up To Date Date of Pneumonia Vaccine: Jul 24, 2016 Date of Influenza Vaccine: Apr 05, 2018 Seasonal Allergies Seasonal Allergies: No Past Medical History Surgeries: No Respiratory: No Cardiac: Yes ( CHF) Atrial Fibrillation, High Cholesterol, Hypertension Neurological: Yes ([facility]) Dementia (advanced) Genitourinary: No Gastrointestinal: No Musculoskeletal: Yes Arthritis, Rheumatoid Arthritis Endocrine: Yes Hypothyroidsim HEENT: No Loss of Vision: Denies Hearing Impairment: Hard of Hearing Cancer: No Psychosocial: Yes Anxiety, Depression Family Medical History Heart Disease Physical Exam-Suspected Sepsis Physical Exam Vital Signs Vital Signs - First Documented 05/25/18 05/25/18 05/25/18 08:09 08:24 09:13 Temp 101.3 Pulse 170 Resp 20 B/P (MAP) 150/70 (96) Pulse Ox 93 O2 Delivery Room Air O2 Flow Rate 2.00 FiO2 30 Capillary Refill : Height, Weight, BMI Height: 5'3.00" Weight: 147lbs. 14.4oz. 66.135718xs; 24.8 BMI Method:Actual General Appearance: WD/WN, Moderate Distress HEENT: Other (mucous membranes dry. Patient will not open her eyes) Neck: Normal Inspection Respiratory: Lungs Clear, Normal Breath Sounds, No Accessory Muscle Use, No Respiratory Distress Cardiovascular: Tachycardia, Other (edema) Gastrointestinal: Normal Bowel Sounds, Soft Extremity: Normal Capillary Refill, Pedal Edema Neurologic/Psychiatric: Other (advanced dementia baseline. Patient responds to pain and hollers) Skin: normal color, warm/dry Focused Exam Lactate Level 05/25/18 07:20: Lactic Acid Level 2.02*H Lactic Acid Level Laboratory Tests Test 05/25/18 07:20 Lactic Acid Level 2.02 MMOL/L (0.50-2.00) *H Progress/Results/Core Measures Suspected Sepsis SIRS Temperature: Pulse: Respiratory Rate: Laboratory Tests 05/25/18 07:20: White Blood Count 11.2H Blood Pressure / Mean: 05/25/18 07:20: Lactic Acid Level 2.02*H Laboratory Tests 05/25/18 07:20: Creatinine 0.95, INR Comment 1.4, Platelet Count 390, Total Bilirubin 0.5 Results/Orders Lab Results Laboratory Tests Test 05/25/18 07:20 05/25/18 07:35 Range/Units White Blood Count 11.2 H 4.3-11.0 10^3/uL Red Blood Count 2.90 L 4.35-5.85 10^6/uL Hemoglobin 9.0 L 11.5-16.0 G/DL Hematocrit 31 L 35-52 % Mean Corpuscular Volume 105 H 80-99 FL Mean Corpuscular Hemoglobin 31 25-34 PG Mean Corpuscular Hemoglobin Concent 30 L 32-36 G/DL Red Cell Distribution Width 13.6 10.0-14.5 % Platelet Count 390 130-400 10^3/uL Mean Platelet Volume 8.6 7.4-10.4 FL Neutrophils (%) (Auto) 78 H 42-75 % Lymphocytes (%) (Auto) 14 12-44 % Monocytes (%) (Auto) 7 0-12 % Eosinophils (%) (Auto) 1 0-10 % Basophils (%) (Auto) 0 0-10 % Neutrophils # (Auto) 8.7 H 1.8-7.8 X 10^3 Lymphocytes # (Auto) 1.6 1.0-4.0 X 10^3 Monocytes # (Auto) 0.8 0.0-1.0 X 10^3 Eosinophils # (Auto) 0.1 0.0-0.3 10^3/uL Basophils # (Auto) 0.0 0.0-0.1 10^3/uL Prothrombin Time 17.1 H 12.2-14.7 SEC INR Comment 1.4 0.8-1.4 Activated Partial Thromboplast Time 33 24-35 SEC Sodium Level 146 H 135-145 MMOL/L Potassium Level 4.4 3.6-5.0 MMOL/L Chloride Level 109 H 98-107 MMOL/L Carbon Dioxide Level 23 21-32 MMOL/L Anion Gap 14 5-14 MMOL/L Blood Urea Nitrogen 36 H 7-18 MG/DL Creatinine 0.95 0.60-1.30 MG/DL Estimat Glomerular Filtration Rate 56 BUN/Creatinine Ratio 38 Glucose Level 113 H 70-105 MG/DL Lactic Acid Level 2.02 *H 0.50-2.00 MMOL/L Calcium Level 8.8 8.5-10.1 MG/DL Corrected Calcium 10.0 8.5-10.1 MG/DL Total Bilirubin 0.5 0.1-1.0 MG/DL Aspartate Amino Transf (AST/SGOT) 23 5-34 U/L Alanine Aminotransferase (ALT/SGPT) 10 0-55 U/L Alkaline Phosphatase 91 40-136 U/L Total Protein 6.5 6.4-8.2 GM/DL Albumin 2.5 L 3.2-4.5 GM/DL Urine Color YELLOW Urine Clarity SLIGHTLY CLOUDY Urine pH 6 5-9 Urine Specific [place] 1.015 L 1.016-1.022 Urine Protein 1+ H NEGATIVE Urine Glucose (UA) NEGATIVE NEGATIVE Urine Ketones 2+ H NEGATIVE Urine Nitrite NEGATIVE NEGATIVE Urine Bilirubin NEGATIVE NEGATIVE Urine Urobilinogen 4 H NORMAL MG/DL Urine Leukocyte Esterase 1+ H NEGATIVE Urine RBC (Auto) NEGATIVE NEGATIVE Urine RBC NONE /HPF Urine WBC 0-2 /HPF Urine Squamous Epithelial Cells 2-5 /HPF Urine Crystals NONE /LPF Urine Bacteria NEGATIVE /HPF Urine Casts NONE /LPF Urine Mucus LARGE H /LPF Urine Culture Indicated NO Micro Results Microbiology 05/25/18 Influenza Types A,B Antigen (BREE) - Final, Complete My Orders Orders - MICHAEL KUMAR MD Cbc With Automated Diff (05/25/18 07:13) Comprehensive Metabolic Panel (05/25/18 07:13) Blood Culture (05/25/18 07:13) Sputum Culture (05/25/18 07:13) Urinalysis (05/25/18 07:13) Urine Culture (05/25/18 07:13) Protime With Inr (05/25/18 07:13) Partial Thromboplastin Time (05/25/18 07:13) Chest 1 View, Ap/Pa Only (05/25/18 07:13) Saline Lock/Iv-Start (05/25/18 07:13) Saline Lock/Iv-Start (05/25/18 07:13) Vital Signs Adult Sepsis Patie Q15M (05/25/18 07:13) O2 (05/25/18 07:13) Remove Rings In Anticipation O (05/25/18 07:13) Lactic Acid Analyzer (05/25/18 07:13) Saline Lock/Iv-Start (05/25/18 07:13) Ns Iv 1000 Ml (Sodium Chloride 0.9%) (05/25/18 07:13) Acetaminophen Suppository (Tylenol Suppo (05/25/18 07:15) Lorazepam Injection (Ativan Injection) (05/25/18 07:15) Diltiazem Injection (Cardizem Injection) (05/25/18 07:15) Ns (Ivpb) (Sodium C... W/Diltiazem Injec (05/25/18 07:15) Catheter(Urinary) Care .0300, 1500 (05/25/18 07:13) Levofloxacin 750 Mg/150 Ml Iv (Levaquin (05/25/18 07:15) Influenza A And B Antigens (05/25/18 07:34) Lorazepam Injection (Ativan Injection) (05/25/18 08:00) Pallative Care Consult (05/25/18 08:27) Morphine Injection (Morphine Injection (05/25/18 08:57) Medications Given in ED Current Medications Medications Dose Ordered Sig/Montse Route Start Time Stop Time Status Last Admin Dose Admin Acetaminophen 650 mg ONCE ONCE ID 05/25/18 07:15 05/25/18 07:16 DC 05/25/18 07:39 650 MG Levofloxacin/ Dextrose 150 ml @ 100 mls/hr ONCE ONCE IV 05/25/18 07:15 05/25/18 08:44 DC 05/25/18 07:55 100 MLS/HR Lorazepam 0.5 mg ONCE ONCE IVP 05/25/18 07:15 05/25/18 07:16 DC 05/25/18 07:26 0.5 MG Lorazepam 0.5 mg ONCE ONCE IVP 05/25/18 08:00 05/25/18 08:01 DC 05/25/18 08:18 0.5 MG Morphine Sulfate 10 mg STK-MED ONCE .ROUTE 05/25/18 08:57 05/25/18 09:00 DC 05/25/18 09:07 4 MG Sodium Chloride 1,000 ml @ 0 mls/hr Q0M ONCE IV 05/25/18 07:13 05/25/18 07:16 DC 05/25/18 07:40 0 MLS/HR Vital Signs/I&O 05/25/18 05/25/18 05/25/18 05/25/18 08:09 08:20 08:24 09:13 Temp 101.3 101.3 Pulse 170 120 121 Resp 20 18 B/P (MAP) 150/70 (96) 118/73 140/100 (113) Pulse Ox 93 97 97 97 O2 Delivery Room Air Nasal Cannula Nasal Cannula O2 Flow Rate 2.00 FiO2 30 05/25/18 09:40 Temp 101.0 Pulse 160 Resp 18 B/P (MAP) 104/90 (95) Pulse Ox 97 Capillary Refill : Progress Note #1: Time: 07:49 Progress Note Septic workup is being pursued. Patient received 500 mL normal saline by EMS. An additional liter is being administered now. A Cardizem bolus and drip have been ordered for treatment of the tachycardia which was suspected to be atrial fibrillation by EMS and on arrival. However, we will hold off on Cardizem at this time because heart rate has dropped to the 120s and now appears to be sinus tachycardia. Rectal Tylenol was administered when Cherry catheter was placed. Levaquin has been ordered as initial antibiotic therapy based on her prior culture. Ativan 0.5 mg was given for agitation. Progress Note #2: Time: 08:25 Progress Note Patient has received a second dose of Ativan for agitation. I been able to have a conversation with the patient's daughter, Cherry, who is her decision maker. She clarifies that patient's CODE STATUS is DO NOT RESUSCITATE. We discussed what direction to take her care given her overall poor functional status and cognitive decline in recent months. Cherry is leaning toward either comfort care in the hospital or transfer back to the residential on hospice. A palliative care consult with Mendel Malcolm has been ordered. She will present to the ER do discuss with Cherry further. Progress Note #3: Time: 08:57 Progress Note After palliative care consult, Cherry has elected transfer back to the residential on hospice care with [facility]. Mendel is making arrangements. EMS transport will be used for transfer back to the residential. Since no source of infection was identified and patient is transferring back on hospice, the remainder of the Levaquin dose will be stopped. Other non-comfort treatments will also be discontinued. Progress Note #4: Time: 09:56 Progress Note Patient has departed the facility with [facility] for transfer back to the residential. ECG Initial ECG Impression Date: May 25, 2018 Initial ECG Impression Time: 07:48 Initial ECG Rate: 128 Initial ECG Rhythm: S.Tach Comment Sinus tachycardia with no overt ST elevation or depression. LVH by automated read. No abnormal intervals. Diagnostic Imaging Diagonstic Imaging: Xray Plain Films/CT/US/NM/MRI: chest Comments Chest x-ray viewed by me and report reviewed. See report below: NAME: JO FLORENCE [employer] REC#: [id number] PT STATUS: REG ER : 1935 PHYSICIAN: MICHAEL KUMAR MD ADMIT DATE: 05/25/18/ER Draft Date of Exam:05/25/18 CHEST 1 VIEW, AP/PA ONLY Indication: Altered mental status. Portable chest 8:14 AM There is scoliosis of the thoracic spine convex to the right. Heart size and pulmonary vascularity are normal. Lungs are clear. There is no effusion or pneumothorax. Impression: Scoliosis. No acute abnormalities of the chest. Dictated on workstation # [id number] Dict: 05/25/18818 Trans: 05/25/18823 CV [id number] Interpreted by: ROSALIA GARCIA MD Departure Impression Primary Impression: Febrile illness Additional Impressions: Atrial fibrillation with RVR Advanced dementia Disposition: HOME, SELF-CARE Condition: Stable Departure-Patient Inst. Referrals: NATE HOU MD (PCP/Family) Primary Care Physician Patient Instructions: Palliative Care Add. Discharge Instructions: Patient is to receive hospice care with [facility]. Dr. You will manage orders on behalf of Dr. Hou [facility] You was updated with patient status. All discharge instructions reviewed with patient and/or family. Voiced understanding. Copy Copies To 1: NATE HOU MD, JOSHUA T MD May 25, 2018 07:55
--- OUTSIDE RECORDS SUMMARY | 2018-05-25 08:04 | XMS REPORT | Continuity of Care Document ---
Author Author [facility] Address Unknown Phone Unavailable Allergies Active Description Code Type Severity Reaction Onset Reported/Identified Relationship to Patient Clinical Status Yes NO KNOWN DRUG ALLERGIES NO KNOWN DRUG ALLERG UNKNOWN Yes NO KNOWN DRUG ALLERGIES UNKNOWN NO KNOWN DRUG ALLERG Yes No Known Drug Allergies [id number] Drug Allergy Unknown N/A 03/07/2016 Medications Medication [...] MOON Garcia 401.9 HYPERTENSION NOS 12/12/2012 VANESA UDBON MD 825.25 FX METATARSAL-CLOSED 12/12/2012 VANESA DUBON [...] NATE HOU MD 611.71 MASTODYNIA 05/21/2014 ANTIONETTE HETAON, NATE Dennis Ot 715.32 05/21/2014 NATE HOU [...] AZALIA SPEARS I25.10 ATHSCL HEART DISEASE OF [place] CORONARY ARTERY W/O ANG PCTRS 10/03/2016 AZALIA [...] Dennis Ot F41.9 ANXIETY DISORDER, UNSPECIFIED 10/25/2016 ANITONETTE HEATON, NATE Dennis Ot G30.9 ALZHEIMER'S DISEASE, [...] IN OTH NON-INSTITUTIONAL RESID 02/10/2018 Ot 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 02/10/2018 Ot Z79.82 FPC ( CURRENT) USE OF ASPIRIN 02/21/2018 Ot E03.9 HYPOTHYROIDISM, UNSPECIFIED 02/21/2018 Ot E78.00 PURE HYPERCHOLESTEROLEMIA, UNSPECIFIED 02/21/2018 Ot F02.80 DEMENTIA IN [facility] DISEASES CLASSD ELSWHR W 02/21/2018 Ot F32.9 [...] PLACE IN SNF PLACE 02/21/2018 Ot 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 02/23/2018 Ot E03.9 HYPOTHYROIDISM, UNSPECIFIED 02/23/2018 Ot E78.00 PURE HYPERCHOLESTEROLEMIA, UNSPECIFIED 02/23/2018 Ot F02.80 DEMENTIA IN [facility] DISEASES CLASSD ELSWHR W 02/23/2018 Ot F32.9 [...] PLACE IN SNF PLACE 02/23/2018 Ot Z79.82 FPC ( CURRENT) USE OF ASPIRIN 05/06/2018 NATE [...] 05/06/2018 NATE HOU MD Ot N64.4 MASTODYNIA 05/09/2018 NATE HOU MD Ot D50.0 IRON DEFICIENCY ANEMIA SECONDARY TO BLOO 05/09/2018 NATE HOU MD Ot E03.9 HYPOTHYROIDISM, UNSPECIFIED 05/09/2018 NATE HOU MD Ot F02.80 DEMENTIA IN OTH DISEASES CLASSD ELSWHR W 05/09/2018 NATE HOU MD Ot F32.9 MAJOR DEPRESSIVE DISORDER, SINGLE EPISOD 05/09/2018 NATE HOU MD Ot F41.9 ANXIETY DISORDER, UNSPECIFIED 05/09/2018 NATE HOU MD Ot G30.9 ALZHEIMER'S DISEASE, UNSPECIFIED 05/09/2018 NATE HOU MD Ot I11.0 HYPERTENSIVE HEART DISEASE WITH HEART FA 05/09/2018 NATE HOU MD Ot I48.0 PAROXYSMAL ATRIAL FIBRILLATION 05/09/2018 NATE HOU MD Ot I50.9 HEART FAILURE, UNSPECIFIED 05/09/2018 NATE HOU MD Ot M06.9 RHEUMATOID ARTHRITIS, UNSPECIFIED 05/09/2018 NATE HOU MD Ot N39.0 URINARY TRACT INFECTION, SITE NOT SPECIF 05/09/2018 NATE HOU MD Ot R19.5 OTHER FECAL ABNORMALITIES 05/09/2018 NATE HOU MD Ot R53.1 WEAKNESS 05/09/2018 NATE HOU MD Ot Z66 DO NOT RESUSCITATE 05/09/2018 NATE HOU MD Ot D50.0 IRON DEFICIENCY ANEMIA SECONDARY TO BLOO 05/09/2018 NATE HOU MD Ot E03.9 HYPOTHYROIDISM, UNSPECIFIED 05/09/2018 NATE HOU MD Ot F02.80 DEMENTIA IN OT DISEASES CLASSD ELSWHR W 05/09/2018 NATE HOU MD Ot F32.9 MAJOR DEPRESSIVE DISORDER, SINGLE EPISOD 05/09/2018 NATE HOU MD Ot F41.9 ANXIETY DISORDER, UNSPECIFIED 05/09/2018 NATE HOU MD Ot G30.9 ALZHEIMER'S DISEASE, UNSPECIFIED 05/09/2018 NATE HOU MD Ot I11.0 HYPERTENSIVE HEART DISEASE WITH HEART FA 05/09/2018 NATE HOU MD Ot I48.0 PAROXYSMAL ATRIAL FIBRILLATION 05/09/2018 NATE HOU MD Ot I50.9 HEART FAILURE, UNSPECIFIED 05/09/2018 NATE HOU MD Ot M06.9 RHEUMATOID ARTHRITIS, UNSPECIFIED 05/09/2018 NATE HOU MD Ot N39.0 URINARY TRACT INFECTION, SITE NOT SPECIF 05/09/2018 NATE HOU MD Ot R19.5 OTHER FECAL ABNORMALITIES 05/09/2018 NATE HOU MD Ot R53.1 WEAKNESS 05/09/2018 NATE HOU MD Ot Z66 DO NOT RESUSCITATE Procedures Code [place] [address] MRI NECK SPINE W/O DYE TRINH HEATON MOON C 07/23/2009 21774 ROUTINE VENIPUNCTURE TRINH HEATON MOON C 07/06/2010 03501 CHEST X-RAY TRINH HEATON MOON C 07/06/2010 09509 COMPLETE CBC W/AUTO DIFF WBC TRINH HEATON MOON C 07/06/2010 35888 MYCOPLASMA ANTIBODY TRINH HEATON MOON C 07/06/2010 51044 ROUTINE VENIPUNCTURE TRINH HEATON MOON C 02/17/2011 99111 COMPREHEN METABOLIC PANEL TRINH HEATON MOON C 02/17/2011 34247 COMPLETE CBC W/AUTO DIFF WBC TRINH HEATON MOON C 02/17/2011 42966 COMP SCREEN MAMMOGRAM ADD- ON TRINH HEATON MOON C 03/25/2011 10915 MAMMOGRAM, SCREENING TRINH HEATON MOON C 03/25/2011 67174 ROUTINE VENIPUNCTURE TABATHA TSANG MDWALDO C 06/01/2011 00082 COMPREHEN METABOLIC PANEL TABATHA TSANG MDWALDO C 06/01/2011 76969 ASSAY OF TOTAL THYROXINE TABATHA TSANG MDWALDO C 06/01/2011 15146 ASSAY THYROID STIM HORMONE TABATHA TSANG MDWALDO C 06/01/2011 97227 COMPLETE CBC W/AUTO DIFF WBC TABATHA TSANG MDWALDO C 06/01/2011 89255 ROUTINE VENIPUNCTURE TABATHA TSANG MDWALDO C 12/22/2011 09274 COMPREHEN METABOLIC PANEL TABATHA TSANG MDWALDO C 12/22/2011 19652 ASSAY OF FREE THYROXINE TABATHA TSANG MDWALDO C 12/22/2011 39390 ASSAY THYROID STIM HORMONE TABATHA TSANG MDWALDO C 12/22/2011 21155 COMPLETE CBC W/AUTO DIFF WBC TABATHA TSANG MDWALDO C 12/22/2011 50506 ROUTINE VENIPUNCTURE ANTIONETTE HEATON, NATE Dennis 02/22/2012 25864 COMPREHEN METABOLIC PANEL ANTIONETTE HEATON, NATE Dennis 02/22/2012 90669 LIPID PANEL ANTIONETTE HEATON, NATE Dennis 02/22/2012 77271 URINALYSIS, AUTO W/SCOPE ANTIONETTE HEATON, NATE Dennis 02/22/2012 36807 ASSAY, TRIIODOTHYRONINE (T3 ) ANTIONETTE HEATON, NATE Dennis 02/22/2012 44781 ASSAY OF BLOOD/URIC ACID ANTIONETTE HEATON, NATE Dennis 02/22/2012 72935 COMPLETE CBC W/AUTO DIFF WBC ANTIONETTE HEATON, NATE Dennis 02/22/2012 21991 RHEUMATOID FACTOR, QUANT ANTIONETTE HEATON, NATE Dennis 02/22/2012 70294 URINE CULTURE/COLONY COUNT ANTIONETTE HEATON, NATE Dennis 02/22/2012 09889 EXTRACRANIAL STUDY ANTIONETTE HEATON, NATE Dennis 02/28/2012 23618 VITAMIN B-12 ANTIONETTE HEATON, NATE Dennis 03/01/2012 12200 ASSAY OF FREE THYROXINE NATE HOU MD 03/01/2012 30829 ASSAY THYROID STIM HORMONE NATE HOU MD 03/01/2012 21346 COMPREHEN METABOLIC PANEL ANTIONETTE HEATON, NATE Dennis 09/17/2012 93346 ASSAY THYROID STIM HORMONE NATE HOU MD 09/17/2012 73485 COMPLETE CBC W/AUTO DIFF WBC ANTIONETTE HEATON, NATE A 09/17/2012 75981 RBC SED RATE, NONAUTOMATED ANTIONETTE HEATON, [facility] 09/17/2012 33140 ROUTINE VENIPUNCTURE TRINH HEATON, [facility] 10/29/2012 31842 COMPREHEN METABOLIC PANEL TRINH HEATON, [facility] 10/29/2012 52345 COMPLETE CBC W/AUTO DIFF WBC TRINH HEATON, [facility] 10/29/2012 06046 X-RAY EXAM OF FOOT JAGDISH HEATON, VANESA 12/12/2012 65370 ASSAY OF FREE THYROXINE ANTIONETTE HEATON, [facility] 12/20/2012 23687 ASSAY THYROID STIM HORMONE ANTIONETTE HEATON, NATE A 12/20/2012 86729 X-RAY EXAM OF FOOT ANTIONETTE HEATON, [facility] 01/08/2013 64838 X-RAY EXAM OF FOOT ANTIONETTE HEATON, NATE 02/26/2013 75308 X-RAY EXAM OF FOOT ANTIONETTE HEATON, NATE A 03/26/2013 26036 URINALYSIS, AUTO W/SCOPE ANTIONETTE HEATON, [facility] 04/01/2014 17942 URINE CULTURE/COLONY COUNT ANTIONETTE HEATON, NATE A 04/01/2014 07274 X-RAY EXAM OF SHOULDER KEATON YIP MD R 05/06/2014 36121 COMPUTER DX MAMMOGRAM ADD- ON ANTIONETTE HEATON, [facility] 05/14/2014 94346 MAMMOGRAM, BOTH BREASTS ANTIONETTE HEATON, NATE A 05/14/2014 11909 COMPUTER DX MAMMOGRAM ADD- ON ANTIONETTE HEATON, NATE A 05/14/2014 53363 MAMMOGRAM, BOTH BREASTS ANTIONETTE HEATON, [facility] 05/14/2014 07681 PT RE-EVALUATION KEATON YIP MD R 05/14/2014 37753 ULTRASOUND THERAPY KEATON YIP MD R 05/14/2014 G8984 CARRY CURRENT STATUS KEATON YIP MD 05/14/2014 G8985 CARRY GOAL STATUS KEATON YIP MD R 05/14/2014 49508 ULTRASOUND THERAPY KEATON YIP MD 05/16/2014 62452 X-RAY EXAM OF FOOT ANTIONETTE HEATON, NATE A 06/17/2014 Results Test Result Range CMP - [...] 230 10^3u 142-424 MPV 9.4 FL 9.4-12.4 [facility] # 0.54 10^3u 0.0-1.0 RBC 3.43 10^6u 4.04-6.13 [facility] % 10.5 % 0-12 RDW 12.7 % [...] 223 10^3u 142-424 MPV 9.8 FL 9.4-12.4 [facility] # 0.59 10^3u 0.0-1.0 RBC 3.25 10^6u 4.04-6.13 [facility] % 11.3 % 0-12 RDW 13.0 % [...] Urobilinogen 0.2 0.2-1.0 Urine RBC NONESEEN Specific Geff 1.025 1.010-1.020 Urine WBC N6-10 Urine Bacteria [...] 5-8.5 Urine-Protein Negative Negative Urine-RBC 2-5/HPF Urine-Specific Geff 1.020 1.000-1.030 Urine-WBC 10-20/HPF Urobilinogen 0.2 0.2-1.0 MRSA Screen - 10/03/16 14:32 FINAL CULTURE RESULTS MRSA Negative Nasal Culture MEDIA PLATED Setup at 15:10 on 10/03/2016 Urine Culture - 10/03/16 18:37 FINAL CULTURE RESULTS 50,000-100,000 Gram Positive Mixed Wendy [id number] Further Workup done MEDIA PLATED Setup at [...] STAIN RESULT MODERATE # GRAM POSITIVE [facility] Bacteria identification in wound by culture - 10/24/16 11:00 Bacteria identification in wound by culture [id number] NRG FREE TEXT EXTERNAL SENSITIVITY REPORTED 10/26 07:01 NRG QUANTITY OF GROWTH Scant Growth NRG Bacterial susceptibility panel - 10/24/16 11:00 Oxacillin [...] 5-8.5 Urine-Protein Negative Negative Urine-RBC 0-2/HPF Urine-Specific Geff 1.015 1.000-1.030 Urine-WBC 5-10/HPF Urobilinogen 0.2 0.2-1.0 [...] 5-8.5 Urine-Protein Negative Negative Urine-RBC 0-2/HPF Urine-Specific Geff 1.015 1.000-1.030 Urine-WBC Negative Urobilinogen 0.2 0.2-1.0 [...] (T4) free measurement (mass/volume) 0.98 ng/dL 0.70-1.48 [id number] - 02/10/18 04:09 [id number] 4.9 ug/mL 50.0-100.0 Complete urinalysis with reflex [...] 05/06/18 10:45 BNP level 958.5 pg/mL <100.0 Bacterial blood culture - 05/06/18 10:45 QUANTITY OF GROWTH . NRG Bacterial blood culture SEE COMMEN NR Bacterial blood culture - 05/06/18 11:20 Bacterial blood culture [facility] Complete urinalysis with reflex to culture - [...] urinalysis with reflex to culture YES NRG Bacterial urine culture - 05/06/18 11:53 Bacterial urine culture [id number] NRG COLONY COUNT >100,000/ML NRG FTX;REPORTABLE RML SENT SENSITIVITY REPORT 05/08 13:05 NRG RML Sensitivity Panel - 05/06/18 11:53 Vancomycin susceptibility test by minimum inhibitory concentration 1 NRG Levofloxacin susceptibility test by minimum inhibitory concentration <= NRG Ampicillin susceptibility test by minimum inhibitory concentration 1 NRG Nitrofurantoin susceptibility test by minimum inhibitory concentration <= NRG Linezolid susceptibility test by minimum inhibitory concentration < = NRG Daptomycin susc BREE 2 NRG Complete blood count (CBC) with automated white blood cell (WBC) differential - 05/07/18 02:56 Blood leukocytes automated count (number/volume) 6.4 10*3/uL 4.3-11.0 Blood erythrocytes automated count (number/volume) 2.42 10*6/uL 4.35-5.85 Venous blood hemoglobin measurement (mass/volume) 7.6 g/dL 11.5-16.0 Blood hematocrit (volume fraction) 25 % 35-52 Automated erythrocyte mean corpuscular volume 104 [foz_us] 80-99 Automated erythrocyte mean corpuscular hemoglobin (mass per erythrocyte) 31 pg 25-34 Automated erythrocyte mean corpuscular hemoglobin concentration measurement ( mass/volume) 30 g/dL 32-36 Automated erythrocyte distribution width ratio 13.0 % 10.0-14.5 Automated blood platelet count (count/volume) 347 10*3/uL 130-400 Automated blood platelet mean volume measurement 8.4 [foz_us] 7.4-10.4 Automated blood neutrophils/100 leukocytes 67 % 42-75 Automated blood lymphocytes/100 leukocytes 19 % 12-44 Blood monocytes/100 leukocytes 12 % 0-12 Automated blood eosinophils/100 leukocytes 2 % 0-10 Automated blood basophils/100 leukocytes 0 % 0-10 Blood neutrophils automated count (number/volume) 4.3 10*3 1.8-7.8 Blood lymphocytes automated count (number/volume) 1.2 10*3 1.0-4.0 Blood monocytes automated count (number/volume) 0.8 10*3 0.0-1.0 Automated eosinophil count 0.2 10*3/uL 0.0-0.3 Automated blood basophil count (count/volume) 0.0 10*3/uL 0.0-0.1 Whole blood basic metabolic panel - 05/07/18 02:56 Serum or plasma sodium measurement (moles/volume) 149 mmol/L 135-145 Serum or plasma potassium measurement (moles/volume) 3.7 mmol/L 3.6-5.0 Serum or plasma chloride measurement (moles/volume) 115 mmol/L 98-107 Carbon dioxide 25 mmol/L 21-32 Serum or plasma anion gap determination (moles/volume) 9 mmol/L 5-14 Serum or plasma urea nitrogen measurement (mass/volume) 43 mg/dL 7-18 Serum or plasma creatinine measurement (mass/volume) 0.83 mg/dL 0.60-1.30 Serum or plasma urea nitrogen/creatinine mass ratio 52 NRG Serum or plasma creatinine measurement with calculation of estimated glomerular filtration rate > NRG Serum or plasma glucose measurement (mass/volume) 105 mg/dL 70-105 Serum or plasma calcium measurement (mass/volume) 8.5 mg/dL 8.5-10.1 Serum iron and total iron binding capacity panel - 05/07/18 02:56 Serum or plasma iron measurement (mass/volume) 23 % 35- 180 Total iron binding capacity and transferrin saturation measurement 14 % 15-50 Iron binding capacity [mass/volume] in serum or plasma 159 % 280-380 UIBC (unsaturated iron binding capacity) 136 % 55-450 Serum or plasma ferritin measurement (mass/volume) 194.5 % 20.0-177.0 Automated blood complete blood count (hemogram) panel - 05/08/18 05:36 Blood leukocytes automated count (number/volume) 4.8 10*3/uL 4.3-11.0 Blood erythrocytes automated count (number/volume) 2.60 10*6/uL 4.35-5.85 Venous blood hemoglobin measurement (mass/volume) 8.2 g/dL 11.5-16.0 Blood hematocrit (volume fraction) 27 % 35-52 Automated erythrocyte mean corpuscular volume 105 [foz_us] 80-99 Automated erythrocyte mean corpuscular hemoglobin (mass per erythrocyte) 32 pg 25-34 Automated erythrocyte mean corpuscular hemoglobin concentration measurement ( mass/volume) 30 g/dL 32-36 Automated erythrocyte distribution width ratio 12.7 % 10.0-14.5 Automated blood platelet count (count/volume) 406 10*3/uL 130-400 Automated blood platelet mean volume measurement 8.3 [foz_us] 7.4-10.4 Whole blood basic metabolic panel - 05/08/18 05:36 Serum or plasma sodium measurement (moles/volume) 148 mmol/L 135-145 Serum or plasma potassium measurement (moles/volume) 3.5 mmol/L 3.6-5.0 Serum or plasma chloride measurement (moles/volume) 112 mmol/L 98-107 Carbon dioxide 25 mmol/L 21-32 Serum or plasma anion gap determination (moles/volume) 11 mmol/L 5-14 Serum or plasma urea nitrogen measurement (mass/volume) 29 mg/dL 7-18 Serum or plasma creatinine measurement (mass/volume) 0.71 mg/dL 0.60-1.30 Serum or plasma urea nitrogen/creatinine mass ratio 41 NRG Serum or plasma creatinine measurement with calculation of estimated glomerular filtration rate > NRG Serum or plasma glucose measurement (mass/volume) 84 mg/dL 70-105 Serum or plasma calcium measurement (mass/volume) 9.1 mg/dL 8.5-10.1 Automated blood complete blood count (hemogram) panel - 05/09/18 05:46 Blood leukocytes automated count (number/volume) 6.2 10*3/uL 4.3-11.0 Blood erythrocytes automated count (number/volume) 2.63 10*6/uL 4.35-5.85 Venous blood hemoglobin measurement (mass/volume) 8.4 g/dL 11.5-16.0 Blood hematocrit (volume fraction) 28 % 35-52 Automated erythrocyte mean corpuscular volume 105 [foz_us] 80-99 Automated erythrocyte mean corpuscular hemoglobin (mass per erythrocyte) 32 pg 25-34 Automated erythrocyte mean corpuscular hemoglobin concentration measurement ( mass/volume) 30 g/dL 32-36 Automated erythrocyte distribution width ratio 12.7 % 10.0-14.5 Automated blood platelet count (count/volume) 467 10*3/uL 130-400 Automated blood platelet mean volume measurement 8.0 [foz_us] 7.4-10.4 Comprehensive metabolic panel - 05/09/18 05:46 Serum or plasma sodium measurement (moles/volume) 144 mmol/L 135-145 Serum or plasma potassium measurement (moles/volume) 4.4 mmol/L 3.6-5.0 Serum or plasma chloride measurement (moles/volume) 109 mmol/L 98-107 Carbon dioxide 28 mmol/L 21-32 Serum or plasma anion gap determination (moles/volume) 7 mmol/L 5-14 Serum or plasma urea nitrogen measurement (mass/volume) 22 mg/dL 7-18 Serum or plasma creatinine measurement (mass/volume) 0.71 mg/dL 0.60-1.30 Serum or plasma urea nitrogen/creatinine mass ratio 31 NRG Serum or plasma creatinine measurement with calculation of estimated glomerular filtration rate > NRG Serum or plasma glucose measurement (mass/volume) 86 mg/dL 70-105 Serum or plasma calcium measurement (mass/volume) 8.9 mg/dL 8.5-10.1 Serum or plasma total bilirubin measurement (mass/volume) 0.2 mg/dL 0.1-1.0 Serum or plasma alkaline phosphatase measurement (enzymatic activity/volume) 59 U/L 40-136 Serum or plasma aspartate aminotransferase measurement (enzymatic activity/ volume) 23 U/L 5-34 Serum or plasma alanine aminotransferase measurement (enzymatic activity/volume ) 8 U/L 0-55 Serum or plasma protein measurement (mass/volume) 5.5 g/dL 6.4-8.2 Serum or plasma albumin measurement (mass/volume) 2.4 g/dL 3.2-4.5 CALCIUM CORRECTED 10.2 mg/dL 8.5-10.1 Encounters ACCT No. Visit Date/Time Discharge Status Pt. Type Provider Facility Loc./Unit Complaint [id number] 06/17/2014 11:34:00 06/17/2014 11:34:00 DIS Outpatient ANTIONETTE HEATON, [facility] OTHER [id number] 06/02/2014 00:01:00 06/02/2014 13:51:00 DIS Outpatient PHI HEATON, [facility] OTHER [id number] 05/14/2014 14:41:00 06/01/2014 23:59:00 DIS Outpatient PHI HEATON, [facility] OTHER [id number] 05/14/2014 11:16:00 05/14/2014 11:16:00 DIS Outpatient ANTIONETTE HEATON, [facility] OTHER [id number] 05/06/2014 11:53:00 05/06/2014 11:53:00 DIS Outpatient PHI HEATON, [facility] OTHER [id number] 04/01/2014 13:18:00 04/01/2014 13:18:00 DIS Outpatient ANTIONETTE HEATON, [facility] [id number] 03/26/2013 13:58:00 03/26/2013 13:58:00 DIS Outpatient ANTIONETTE HEATON, [facility] OTHER [id number] 02/26/2013 09:43:00 02/26/2013 09:43:00 DIS Outpatient ANTIONETTE HEATON, [facility] OTHER [id number] 01/08/2013 10:48:00 01/08/2013 10:48:00 DIS Outpatient ANTIONETTE HEATON, [facility] OTHER [id number] 12/20/2012 09:58:00 12/20/2012 09:58:00 DIS Outpatient ANTIONETTE HEATON, [facility] [id number] 12/12/2012 09:41:00 12/12/2012 09:41:00 DIS Outpatient JAGDISH HEATON, [facility] OTHER [id number] 10/29/2012 12:17:00 10/29/2012 12:17:00 [facility] [id number] 09/17/2012 13:49:00 09/17/2012 13:49:00 DIS Outpatient ANTIONETTE HEATON, [facility] [id number] 03/01/2012 10:49:00 Document Registration [id number] 02/28/2012 10:46:00 Document Registration [id number] 02/22/2012 09:40:00 Document Registration [id number] 12/22/2011 12:25:00 Document Registration [id number] 06/01/2011 12:03:00 Document Registration [id number] 03/25/2011 09:36:00 Document Registration [id number] 02/17/2011 11:59:00 Document Registration [id number] 07/06/2010 15:11:00 Document Registration [id number] 07/23/2009 07:32:00 Document Registration [id number] 06/17/2014 23:42:26 ACT Document Registration [id number] 01/25/2018 12:59:00 02/09/2018 09:15:00 [facility] [id number] 10/03/2016 14:09:00 10/13/2016 13:10:00 [facility] [id number] 10/03/2016 15:52:31 Document Registration [id number] 02/07/2017 20:55:56 02/07/2017 23:59:59 CLS Outpatient [id number] 05/06/2018 12:55:00 05/09/2018 13:40:00 DIS Outpatient NATE HOU MD [facility] 4TH NEW ONSET A-FIB RVR [id number] 10/22/2016 11:05:00 10/25/2016 11:33:00 DIS Inpatient NATE HOU MD [facility] 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 [id number] 03/07/2016 07:31:00 03/07/2016 09:39:00 DIS Emergency JOSÉ HEATON, MICHAEL Bermeo [facility] ER SWOLLEN LEFT INDEX FINGER [id number] 04/24/2015 09:03:00 04/24/2015 23:59:59 CLS Outpatient NATE OHU MD [facility] RAD LEFT BREAST PAIN [id number] 04/17/2014 12:00:00 04/17/2014 23:59:59 CLS Outpatient NATE HOU MD [facility] RAD ARM PAIN,FALL [id number] 02/01/2013 11:46:00 02/01/2013 23:59:59 CLS Outpatient NATE HOU MD [facility] RAD RECENT FX [id number] 11/14/2012 12:36:00 11/14/2012 23:59:59 CLS Outpatient NATE HOU MD [facility] RAD FOOT PAIN,FALL [id number] 02/21/2018 16:43:00 Document Registration [id number] 02/10/2018 04:25:00 Document Registration [id number] 04/04/2017 09:00:00 04/04/2017 23:59:59 CLS Outpatient Nate Hou [facility]
[2018-05-25 08:06] LABS: BACTERIA,URINE NEGATIVE /HPF; WBC,URINE 0-2 /HPF
--- NOTE | 2018-05-25 08:24 | Diagnostic Imaging Report ---
Indication: Altered mental status. Portable chest 8:14 AM There is scoliosis of the thoracic spine convex to the right. Heart size and pulmonary vascularity are normal. Lungs are clear. There is no effusion or pneumothorax. Impression: Scoliosis. No acute abnormalities of the chest. Dictated by: Dictated on workstation # [id number]
[2018-05-25] MEDS ORDERED: morphine INJ 10 MG/ML 1ML (SYR OR VIAL) ONE (08:57)
[2018-05-25 09:13] VITALS: BP 140/100
[2018-05-25 09:40] VITALS: BP 104/90
== END 2018-05-25 09:56 | disposition home or self-care (01) ==
LOC: ER 07:04
DX: I48.91 Unspecified atrial fibrillation (principal); F03.90 Unspecified dementia, unspecified severity, without behavioral disturbance, psychotic disturbance, mood disturbance, and anxiety; R50.9 Fever, unspecified; E78.00 Pure hypercholesterolemia, unspecified; I11.0 Hypertensive heart disease with heart failure; I50.9 Heart failure, unspecified; M06.9 Rheumatoid arthritis, unspecified; E03.9 Hypothyroidism, unspecified; F41.9 Anxiety disorder, unspecified; F32.9 Major depressive disorder, single episode, unspecified; Z79.51 Long term (current) use of inhaled steroids; Z87.440 Personal history of urinary (tract) infections
CPT/HCPCS: 36415; 51702; 71045; 80053; 81000; 83605; 85025; 85610; 85730; 87040; 87088; 87804